=== PATIENT | male | born 1945 | race Caucasian/White ===

== ENCOUNTER → 2016-04-05 | Outpatient (CLI) | payer MEDICARE ==
--- NOTE | 2016-04-05 11:12 | XR ---
EXAMINATION TYPE: XR cervical spine limited DATE OF EXAM: 04/05/2016 11:04 AM COMPARISON: NONE HISTORY: Pain TECHNIQUE: Four views are submitted. FINDINGS: The odontoid is intact. There are no compression deformities. The prevertebral soft tissue structur es are within normal limits. Extensive carotid artery calcifications are seen bilaterally. There are spurs noted anteriorly at all levels with significant facet arthropathy at all levels. 1 mm anteroli sthesis of C3 on C4. Multilevel mild to moderate degenerative disc disease. IMPRESSION: 1. Multilevel mild to moderate degenerative disc disease with facet arthropathy consider follow-up MR I. 2. Extensive soft tissue neck calcifications likely related to significant carotid artery calcificati on. Correlate clinically.
--- NOTE | 2016-04-05 11:13 | XR ---
EXAM TYPE: LUMBAR SPINE X RAY SERIES COMPARISON: NONE HISTORY: Pain TECHNIQUE: 3 views are submitted. FINDINGS: Alignment is anatomic. The pedicles are intact. The transverse processes are intact. There is no s pondylolysis or spondylolisthesis. Hypertrophic changes are noted. There is mild to moderate degener ative disc disease and facet arthropathy with the most marked findings at L4-5 and L5-S1. Vascular ca lcifications are seen. IMPRESSION: 1. Multilevel mild to moderate degenerative disc disease.
== END | disposition home or self-care (01) ==
LOC: RADXRMAIN 10:36
PROVIDERS: ATTEND Chiropractor
DX: M50.30 Other cervical disc degeneration, unspecified cervical region (principal); M51.36 Other intervertebral disc degeneration, lumbar region; M46.82 Other specified inflammatory spondylopathies, cervical region
CPT/HCPCS: 72040; 72100

== ENCOUNTER → 2019-10-09 | Outpatient (CLI) | payer MEDICARE ==
[2019-10-09 11:45] LABS: Basophils % (A) 1 %; Eosinophils # (A) 0.2 k/uL (0-0.7); Eosinophils % (A) 2 %; HCT 37.1 % (39.0-53.0); Lymphocytes # (A) 0.9 k/uL (1.0-4.8); Lymphocytes % (A) 14 %; MCHC 32.3 g/dL (31.0-37.0); MCV 92.8 fL (80.0-100.0); Mean Platelet Volume 7.4; Monocytes # (A) 0.5 k/uL (0-1.0); Monocytes % (A) 8 %; Neutrophils # (A) 4.8 k/uL (1.3-7.7); Neutrophils % (A) 74 %; Platelet Count 274 k/uL (150-450); RDW 13.3 % (11.5-15.5); WBC 6.6 k/uL (3.8-10.6)
--- NOTE | 2019-10-09 15:32 | XR ---
Right leg HISTORY: Anterior lower leg wound, E 11.622 2 views of the right leg Bone mineralization, joint spaces and alignment are maintained. Osteoarthritic changes noted in the r ight knee. Small ossific density distal to the medial malleolus is well-corticated and not felt likel y to be acute. Soft tissue swelling is noted over the anterior tibia at the mid diaphysis level. No p eriostitis to suggest osteomyelitis. Coarse calcification within the soft tissues of the right leg wh ich may be dystrophic. IMPRESSION: Soft tissue swelling and additional findings above.
[2019-10-09 16:14] LABS: African American GFR (CKD) 57.4 (60.0-200.0); Albumin 4.1 g/dL (3.80-4.90); Albumin/Globulin Ratio 1.95 (1.60-3.17); Anion Gap 12.1 mmol/L (4.00-12.00); BUN/Creat Ratio 12.14 Ratio (12.00-20.00); C Reactive Protein 1.4 mg/dL (0.0-0.8); Calcium 9.6 mg/dL (8.7-10.3); Carbon Dioxide 20.9 mmol/L (21.6-31.8); Globulin 2.1 g/dL (1.6-3.3); Non-African American GFR(CKD) 49.5 (60.0-200.0); Potassium 4.6 mmol/L (3.5-5.5); Total Bilirubin 0.3 mg/dL (0.3-1.2); Total Protein 6.2 g/dL (6.2-8.2)
[2019-10-09 17:53] LABS: Erythrocyte Sedimentation Rate 19 mm/Hr (0-20)
== END | disposition home or self-care (01) ==
LOC: LABWHC1 09:42
PROVIDERS: ATTEND Family Medicine
DX: M17.11 Unilateral primary osteoarthritis, right knee (principal); M79.89 Other specified soft tissue disorders; E11.622 Type 2 diabetes mellitus with other skin ulcer; L97.812 Non-pressure chronic ulcer of other part of right lower leg with fat layer exposed; I87.311 Chronic venous hypertension (idiopathic) with ulcer of right lower extremity; I87.2 Venous insufficiency (chronic) (peripheral); I10 Essential (primary) hypertension; E78.5 Hyperlipidemia, unspecified
CPT/HCPCS: 36415; 80053; 84134; 85025; 85652; 86140; 87070; 87075; 87205

== ENCOUNTER → 2019-10-15 | Outpatient (CLI) | payer MEDICARE ==
--- NOTE | 2019-10-15 16:12 | US ---
EXAMINATION TYPE: US venous doppler duplex LE BI DATE OF EXAM: 10/15/2019 3:06 PM COMPARISON: NONE CLINICAL HISTORY: 74-year-old male E11.622 TYPE 2 DIABETES MELLITUS W/OTHER SKIN ULCER. Right lower l eg ulcer x 3 weeks after softball injury to area; Chronic venous HTN; edema bilateral lower extremity SIDE PERFORMED: bilateral LOWER EXTREMITY VENOUS INSUFFICIENCY CLINICAL HISTORY: E11.622 TYPE 2 DIABETES MELLITUS W/OTHER SKIN ULCER. FINDINGS: SIDE PERFORMED: Bilateral 1) Color flow is present and patency is documented in the following vessels. No DVT or SVT is noted . Common Femoral Vein (CFV) Deep Femoral Vein Femoral Vein Popliteal Vein Proximal Calf Veins Greater Saphenous Vein 2) There is venous reflux noted at the following venous levels: Delayed Valve closure seen at Left CFV; reflux noted Left Popliteal Vein; Left upper calf veins 3) Incompetent perforators: None seen. 4) Incidental finding of left medial mid leg cyst seen = 3.6 x 2.7 x 1.9cm at the palpable site. This appears to be a simple cyst located within the deep subcutaneous adipose layer. IMPRESSION: 1. No evidence for DVT within the bilateral lower extremities imaged from the groin to the upper calv es. 2. Venous reflux within the left lower extremity as outlined above. 3. At the medial mid leg palpable site, there is a 3.6 cm simple appearing cyst located within the de ep subcutaneous adipose layer. The exact etiology of this cyst is unclear. Consider clinical and ultr asound follow-up. If any growth is noted, MRI can be considered.
--- NOTE | 2019-10-22 12:01 | P.ARTDOP ---
Arterial Doppler LOWER EXTREMITY ARTERIAL DOPPLER: DATE OF SERVICE: 10/15/2019 Reason for study: Traumatic ulcer left lower leg. Doppler waveforms: Blunted but multiphasic bilaterally. Pulse volume recording: []. Pressure gradients: Gradient above the ankle on the right and very minimal gradient on the left. Ankle-brachial indices: 0.71 on the right and 0.94 on the left. Toe brachial indices: 0.4 on the right, 0.23 on the left Impression: Moderate femoral popliteal disease on the right. Mild on the left. Waveforms and toe pressures suggest adequate tissue perfusion for healing. Clinical correlation recommended..
== END | disposition home or self-care (01) ==
LOC: RADUSWWP 13:27
PROVIDERS: ATTEND Family Medicine
DX: M85.662 Other cyst of bone, left lower leg (principal); I73.9 Peripheral vascular disease, unspecified; L97.812 Non-pressure chronic ulcer of other part of right lower leg with fat layer exposed
CPT/HCPCS: 93922; 93970

== ENCOUNTER 2019-12-20 13:24 | Emergency (ER) | payer MEDICARE ==
[2019-12-20 14:11] VITALS: TEMP 97.8
--- NOTE | 2019-12-20 15:03 | ED ---
General Adult HPI - General Chief complaint: Neuro Symptoms/Deficit Stated complaint: Altered mental status Time Seen by Provider: 12/20/19 14:35 Source: patient, family, RN notes reviewed Mode of arrival: ambulatory Limitations: no limitations - History of Present Illness Initial comments: Patient is a pleasant 74-year-old male presenting to the emergency department for confusion. Onset of symptoms was this morning. Symptoms lasted for a short period of time and have since resolved., Lasted less than a hour.patient was confused. Patient did not know what year was and wasnswering questions inappropriately. patient has speech problems. Patient did havea little bit of difficulty with walking however they believe this was from his knee. Patient has chronic knee problems and just had a steroid injection yesterday. Patient does not feel off balance. Patient has no complaints at this time and is symptom-free. Patient had a somewhat similar episode a couple of weeks ago that she had speech problems however that also resolved after a short period of time. - Related Data Home Medications Medication Instructions Recorded Confirmed Aspirin 325 mg PO DAILY 01/14/16 01/14/16 Atorvastatin [Lipitor] 80 mg PO HS 01/14/16 01/14/16 Cholecalciferol [Vitamin D3 (25 2,000 unit PO DAILY 01/14/16 01/14/16 Mcg = 1000 Iu)] Cinnamon Bark [Cinnamon] 1,000 mg PO BID 01/14/16 01/14/16 Fish Oil/Dha/Epa [Fish Oil 1,200 1 each PO BID 01/14/16 01/14/16 mg Fish Oil] Loratadine 10 mg PO DAILY 01/14/16 01/19/16 Metoprolol Tartrate [Lopressor] 50 mg PO BID 01/14/16 01/14/16 Multivitamins, Thera [Multivitamin 1 tab PO DAILY 01/14/16 01/14/16 (formulary)] amLODIPine BESYLATE [Norvasc] 5 mg PO BID 01/14/16 01/14/16 busPIRone HCL 7.5 mg PO BID 01/14/16 01/14/16 cloNIDine HCL [Catapres] 0.1 mg PO BID 01/14/16 01/14/16 glipiZIDE [Glucotrol] 2.5 mg PO AC-BID 01/14/16 01/19/16 Previous Rx's Medication Instructions Recorded Clopidogrel [Plavix] 75 mg PO DAILY #30 tab 01/20/16 Nitroglycerin Sl Tabs [Nitrostat] 0.4 mg SUBLINGUAL Q5M PRN #25 tab 01/20/16 metFORMIN HCL [Glucophage] 1,000 mg PO BID #0 01/20/16 Allergies Allergy/AdvReac Type Severity Reaction Status Date / Time No Known Allergies Allergy Verified 12/20/19 14:11 Review of Systems ROS Statement: Those systems with pertinent positive or pertinent negative responses have been documented in the HPI. ROS Other: All systems not noted in ROS Statement are negative. Constitutional: Denies: fever Eyes: Denies: eye pain ENT: Denies: ear pain Respiratory: Denies: cough Cardiovascular: Denies: chest pain Endocrine: Denies: fatigue Gastrointestinal: Denies: abdominal pain Genitourinary: Denies: dysuria Musculoskeletal: Denies: back pain Skin: Denies: rash Neurological: Reports: as per HPI, confusion. Denies: headache Past Medical History Past Medical History: COPD, Diabetes Mellitus, Hyperlipidemia, Hypertension, Myocardial Infarction (AL) Additional Past Medical History / Comment(s): Recent sore R great toe-healed, gout. Last Myocardial Infarction Date:: 1991 History of Any Multi-Drug Resistant Organisms: None Reported Past Surgical History: Heart Catheterization, Heart Catheterization With Stent Additional Past Surgical History / Comment(s): 01/18/16 cardiac stents to RCA x2. Other surgical hx: balloon angiioplasty 1991, nathan cataracts Past Anesthesia/Blood Transfusion Reactions: No Reported Reaction Date of Last Stent Placement:: 01/19/16 Past Psychological History: No Psychological Hx Reported Smoking Status: Never smoker Past Alcohol Use History: None Reported Past Drug Use History: None Reported - Past Family History Mother Family Medical History: No Reported History Additional Family Medical History / Comment(s): Mother is healthy and is 89yrs old. Father Family Medical History: Cancer Additional Family Medical History / Comment(s): "blood cancer". at the age of 73 yrs. General Exam Limitations: no limitations General appearance: alert, in no apparent distress Head exam: Present: normocephalic Eye exam: Present: normal appearance, PERRL, EOMI ENT exam: Present: normal oropharynx Neck exam: Present: normal inspection Respiratory exam: Present: normal lung sounds bilaterally Cardiovascular Exam: Present: regular rate, normal rhythm GI/Abdominal exam: Present: soft. Absent: tenderness Extremities exam: Present: normal inspection Neurological exam: Present: alert, oriented X3, CN II-XII intact, abnormal gait (Slightly abnormal gait however this is consistent with patient's reported knee discomfort. Patient denies feeling off balance.). Absent: motor sensory deficit Expanded Neurological exam: Present: protecting the airway Patient oriented to: Present: person, place, time Speech: Present: fluid speech Cranial nerves: EOM's Intact: Normal Sensory exam: Upper Extremity Light Touch: Normal, Lower Extremity Light Touch: Normal Motor strength exam: RUE: 5, LUE: 5, RLE: 5, LLE: 5 Eye Response: (4) open spontaneously Motor Response: (6) obeys commands Verbal Response: (5) oriented Psychiatric exam: Present: normal affect, normal mood Skin exam: Present: normal color Course Vital Signs 12/20/19 12/20/19 14:09 17:15 Temperature 97.8 F Pulse Rate 70 87 Respiratory 20 18 Rate Blood Pressure 129/65 148/87 O2 Sat by Pulse 99 98 Oximetry EKG Findings - EKG Comments: EKG Findings:: Sinus rhythm at 67. FL 140. QRS 86. QT 442. QTC 467. Normal axis. Normal QRS. Some motion artifact is present. No acute ST change. Medical Decision Making - Medical Decision Making patient reevaluated and resting comfortably in bed. Patient and family updated on results and plan. Case was discussed with Dr. loco Benitez, who will accept transfer. Case was earlier discussed with Dr. Schilling who is agreeable with transfer. - Lab Data Result diagrams: 12/20/19 15:26 12/20/19 15:26 Lab Results 12/20/19 12/20/19 12/20/19 Range/Units 15:26 15:26 15:26 WBC 8.3 (3.8-10.6) k/uL RBC 4.26 L (4.30-5.90) m/uL Hgb 13.3 (13.0-17.5) gm/dL Hct 38.8 L (39.0-53.0) % MCV 91.0 (80.0-100.0) fL MCH 31.3 (25.0-35.0) pg MCHC 34.4 (31.0-37.0) g/dL RDW 12.3 (11.5-15.5) % Plt Count 241 (150-450) k/uL MPV 7.4 Neutrophils % 62 % Lymphocytes % 21 % Monocytes % 9 % Eosinophils % 3 % Basophils % 2 % Neutrophils # 5.2 (1.3-7.7) k/uL Lymphocytes # 1.8 (1.0-4.8) k/uL Monocytes # 0.7 (0-1.0) k/uL Eosinophils # 0.3 (0-0.7) k/uL Basophils # 0.2 (0-0.2) k/uL PT 10.2 (9.0-12.0) sec INR 1.0 (<1.2) APTT 23.1 (22.0-30.0) sec Sodium 132 L (137-145) mmol/L Potassium 4.6 (3.5-5.1) mmol/L Chloride 101 (98-107) mmol/L Carbon Dioxide 20 L (22-30) mmol/L Anion Gap 11 mmol/L BUN 23 H (9-20) mg/dL Creatinine 1.05 (0.66-1.25) mg/dL Est GFR (CKD-EPI)AfAm 82 (>60 ml/min/1.73 sqM) Est GFR (CKD-EPI)NonAf 71 (>60 ml/min/1.73 sqM) Glucose 196 H (74-99) mg/dL Calcium 8.9 (8.4-10.2) mg/dL Total Bilirubin 0.5 (0.2-1.3) mg/dL AST 31 (17-59) U/L ALT 36 (4-49) U/L Alkaline Phosphatase 47 (38-126) U/L Troponin I (0.000-0.034) ng/mL Total Protein 6.1 L (6.3-8.2) g/dL Albumin 3.5 (3.5-5.0) g/dL 12/20/19 Range/Units 15:26 WBC (3.8-10.6) k/uL RBC (4.30-5.90) m/uL Hgb (13.0-17.5) gm/dL Hct (39.0-53.0) % MCV (80.0-100.0) fL MCH (25.0-35.0) pg MCHC (31.0-37.0) g/dL RDW (11.5-15.5) % Plt Count (150-450) k/uL MPV Neutrophils % % Lymphocytes % % Monocytes % % Eosinophils % % Basophils % % Neutrophils # (1.3-7.7) k/uL Lymphocytes # (1.0-4.8) k/uL Monocytes # (0-1.0) k/uL Eosinophils # (0-0.7) k/uL Basophils # (0-0.2) k/uL PT (9.0-12.0) sec INR (<1.2) APTT (22.0-30.0) sec Sodium (137-145) mmol/L Potassium (3.5-5.1) mmol/L Chloride (98-107) mmol/L Carbon Dioxide (22-30) mmol/L Anion Gap mmol/L BUN (9-20) mg/dL Creatinine (0.66-1.25) mg/dL Est GFR (CKD-EPI)AfAm (>60 ml/min/1.73 sqM) Est GFR (CKD-EPI)NonAf (>60 ml/min/1.73 sqM) Glucose (74-99) mg/dL Calcium (8.4-10.2) mg/dL Total Bilirubin (0.2-1.3) mg/dL AST (17-59) U/L ALT (4-49) U/L Alkaline Phosphatase (38-126) U/L Troponin I <0.012 (0.000-0.034) ng/mL Total Protein (6.3-8.2) g/dL Albumin (3.5-5.0) g/dL - Radiology Data Radiology results: report reviewed (computed tomography scan of the brain reveals no acute process. CT angios shows atherosclerotic plaque formation. No hemodynamic stenosis Narrowing at the carotid artery bifurcation), image reviewed (chest x-ray shows no acute process) Disposition Clinical Impression: Transient cerebral ischemia Disposition: OTHER INSTITUTION NOT DEFINED Is patient prescribed a controlled substance at d/c from ED?: No Referrals: Austyn Stevens MD [Primary Care Provider] - 1-2 days Time of Disposition: 18:33 - Out of Hospital Transfer - Req. Specs Out of Hospital Transfer - Requested Specifics: Other Emergency Center
[2019-12-20 15:36] LABS: Basophils # (A) 0.2 k/uL (0-0.2); Basophils % (A) 2 %; Eosinophils # (A) 0.3 k/uL (0-0.7); Eosinophils % (A) 3 %; HCT 38.8 % (39.0-53.0); HGB 13.3 gm/dL (13.0-17.5); Lymphocytes # (A) 1.8 k/uL (1.0-4.8); Lymphocytes % (A) 21 %; MCH 31.3 pg (25.0-35.0); MCHC 34.4 g/dL (31.0-37.0); Mean Platelet Volume 7.4; Monocytes # (A) 0.7 k/uL (0-1.0); Monocytes % (A) 9 %; Neutrophils # (A) 5.2 k/uL (1.3-7.7); Neutrophils % (A) 62 %; Platelet Count 241 k/uL (150-450); RBC 4.26 m/uL (4.30-5.90); RDW 12.3 % (11.5-15.5); WBC 8.3 k/uL (3.8-10.6)
[2019-12-20 15:48] LABS: Albumin 3.5 g/dL (3.5-5.0); Calcium 8.9 mg/dL (8.4-10.2); Potassium 4.6 mmol/L (3.5-5.1); Total Bilirubin 0.5 mg/dL (0.2-1.3); Total Protein 6.1 g/dL (6.3-8.2)
[2019-12-20 15:50] LABS: Partial Thromboplastin Time 23.1 sec (22.0-30.0); Prothrombin Time 10.2 sec (9.0-12.0)
--- NOTE | 2019-12-20 16:36 | CT ---
EXAMINATION TYPE: CT brain wo con for TPA DATE OF EXAM: 12/20/2019 COMPARISON: None HISTORY: Confusion. Was not a code stroke CT DLP: 1047.8 mGycm Automated exposure control for dose reduction was used. There is cerebral cortical atrophy. There is no mass effect nor midline shift. There is no sign of in tracranial hemorrhage. The calvarium is intact. Skull base is intact. IMPRESSION: Cerebral atrophy. No acute intracranial abnormality.
[2019-12-20 17:23] VITALS: RESP 18
--- NOTE | 2019-12-20 17:24 | CT ---
EXAMINATION TYPE: CT angio head neck DATE OF EXAM: 12/20/2019 COMPARISON: None HISTORY: Confusion CT DLP: 549.8 mGycm Automated exposure control for dose reduction was used. CONTRAST: Performed with IV Contrast, patient injected with 65 mL of Isovue 370. There are 3-D post processed images. There is normal branching pattern of the great vessels on the aortic arch. There is arterial flow in the subclavian arteries bilaterally. Thoracic aorta is atheromatous. There is arterial flow in the common internal and external carotid arteries bilaterally. There is art erial flow in both vertebral arteries. There is bilateral plaque formation at the carotid artery bifu rcations. There is estimated 30% stenosis at the origin of the right internal carotid artery. There i s estimated less than 25% stenosis origin of the left internal carotid artery. There is no evidence o f carotid or vertebral artery aneurysm or dissection. There is arterial flow in the vertebrobasilar a rtery system. There is arterial flow in the anterior middle and posterior cerebral arteries bilaterally. I see no e vidence of intracranial arterial stenosis. There is normal contrast opacification of the venous sinus es. I see no sign of intracranial aneurysm or neovascularity. There is no mass effect. IMPRESSION: Atherosclerotic plaque formation. There is no evidence of hemodynamic stenosis of the carotid arterie s. There is narrowing at the carotid artery bifurcations as above. No intracranial angiographic abnor mality.
--- NOTE | 2019-12-20 17:47 | XR ---
EXAMINATION TYPE: XR chest 2V DATE OF EXAM: 12/20/2019 COMPARISON: NONE HISTORY: Altered mental status TECHNIQUE: 2 views FINDINGS: There is no heart failure nor confluent pneumonic infiltrate. Costophrenic angles are clear . Thoracic aorta is atheromatous. Bony thorax is intact. IMPRESSION: No active cardiopulmonary disease. Normal heart.
[2019-12-20] MEDS ORDERED: ASPIRIN 81 MG PO STA (18:33)
[2019-12-20 18:55] LABS: Appearance,Urine Clear (Clear); Bilirubin,Urine Negative (Negative); Blood,Urine Negative (Negative); Color,Urine Light Yellow; Glucose,Urine (UA) Negative (Negative); Ketones,Urine Negative (Negative); Leukocyte Esterase,Urine Negative (Negative); Nitrite,Urine Negative (Negative); Protein,Urine Negative (Negative); Specific Gravity,Urine 1.039 (1.001-1.035); Urobilinogen,Urine <2.0 mg/dL (<2.0)
[2019-12-20 19:36] VITALS: BP 176/88; PULSE 89
== END 2019-12-20 20:28 | disposition other institution (70) ==
LOC: EC 13:24
DX: G45.9 Transient cerebral ischemic attack, unspecified (principal); I10 Essential (primary) hypertension; E11.9 Type 2 diabetes mellitus without complications; E78.5 Hyperlipidemia, unspecified; I25.2 Old myocardial infarction; Z79.82 Long term (current) use of aspirin; Z79.899 Other long term (current) drug therapy; Z79.84 Long term (current) use of oral hypoglycemic drugs; Z95.5 Presence of coronary angioplasty implant and graft
CPT/HCPCS: 36415; 93005; 80053; 84484; 85025; 85610; 85730; 81003; 71046; 70496; 70450; 70498; 99285; Q9967

== ENCOUNTER 2020-11-24 10:50 | Emergency (ER) | payer MEDICARE ==
[2020-11-24 10:56] VITALS: TEMP 98
[2020-11-24] MEDS ORDERED: ONDANSETRON 4 MG/2 ML VIAL IVP STA (11:22)
[2020-11-24] MEDS ORDERED: SODIUM CHLORIDE 0.9% 500 ML 500 ML IV STA (11:22)
[2020-11-24 11:54] LABS: Basophils % (A) 0 %; Eosinophils % (A) 0 %; HCT 40.9 % (39.0-53.0); HGB 13.2 gm/dL (13.0-17.5); Lymphocytes # (A) 1.4 k/uL (1.0-4.8); Lymphocytes % (A) 11 %; MCH 29.6 pg (25.0-35.0); MCHC 32.4 g/dL (31.0-37.0); MCV 91.5 fL (80.0-100.0); Mean Platelet Volume 7.1; Monocytes # (A) 0.7 k/uL (0-1.0); Monocytes % (A) 6 %; Neutrophils # (A) 10.3 k/uL (1.3-7.7); Neutrophils % (A) 82 %; Platelet Count 317 k/uL (150-450); RBC 4.47 m/uL (4.30-5.90); RDW 12.6 % (11.5-15.5); WBC 12.5 k/uL (3.8-10.6)
[2020-11-24 12:00] LABS: ALT 27 U/L (4-49); AST 26 U/L (17-59); African American GFR (CKD) >90 (>60 ml/min/1.73 sqM); Albumin 4.1 g/dL (3.5-5.0); Alkaline Phosphatase 69 U/L (38-126); Anion Gap 12 mmol/L; Blood Urea Nitrogen 20 mg/dL (9-20); Calcium 9.5 mg/dL (8.4-10.2); Carbon Dioxide 22 mmol/L (22-30); Chloride 100 mmol/L (98-107); Glucose 247 mg/dL (74-99); Magnesium 1.8 mg/dL (1.6-2.3); Non-African American GFR(CKD) 86 (>60 ml/min/1.73 sqM); Potassium 4.5 mmol/L (3.5-5.1); Sodium 134 mmol/L (137-145); Total Bilirubin 0.4 mg/dL (0.2-1.3); Total Protein 7.2 g/dL (6.3-8.2)
[2020-11-24 12:01] LABS: Partial Thromboplastin Time 22.2 sec (22.0-30.0); Prothrombin Time 10.6 sec (9.0-12.0)
--- NOTE | 2020-11-24 12:38 | CT ---
EXAMINATION TYPE: CT brain wo con DATE OF EXAM: 11/24/2020 COMPARISON: 12/20/2019 HISTORY: Fall CT DLP: 1114.[address] of the brain was performed. The ventricles, basal cisterns and sulci overlying the cerebral convexities demonstrate moderate enla rgement. There is no evidence for intracranial hemorrhage or sulcal effacement. There is decreased attenuation about the periventricular white matter and deep white matter of both c erebral hemispheres, compatible with chronic small vessel ischemia. Differential diagnosis does inclu de demyelination. No mass effects are seen.No midline shift. Osseous calvarium is intact. If symptoms persist consider MRI. IMPRESSION: 1. Age related atrophic and chronic small vessel ischemic change without acute intracranial process s een at this time.
--- NOTE | 2020-11-24 12:45 | XR ---
EXAMINATION TYPE: XR knee complete LT DATE OF EXAM: 11/24/2020 COMPARISON: NONE HISTORY: Pain TECHNIQUE: Three views are submitted. FINDINGS: Severe narrowing of the medial compartment of the knee joint with diffuse osteopenia. Severe narrowin g of the hyper trophic changes of the patellofemoral joint with small suprapatellar bursal fluid estrella ection. Soft tissue ossification or calcification noted and there are vascular calcifications.. Osse ous structures are intact. No acute fracture seen. IMPRESSION: 1. Severe osteoarthritis with no definite acute fracture. 2. Small suprapatellar bursal fluid collection..
--- NOTE | 2020-11-24 13:15 | ED ---
General Adult HPI - General Chief complaint: Fall Stated complaint: Vomiting, Fall, knee pain Time Seen by Provider: 11/24/20 11:05 Source: patient, family, RN notes reviewed, old records reviewed Mode of arrival: wheelchair Limitations: no limitations - History of Present Illness Initial comments: Patient is a 75-year-old male with history of COPD, diabetes, heart disease, presenting to emergency Department with complaints of some nausea and vomiting that started 2 nights ago. He states he had a fall 2 days ago, he tripped over some blankets on his dog bed, landing mostly on his left side. He states he did not hit his head. He is not on blood thinners. He states ever since that he's been having some pain in his left knee but is also been nauseous and having vomiting episodes. He is been unable to eat anything over the past 1-2 days. He is getting concerned as he is diabetic. He was not able to take his medications today secondary to nausea. 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 He is complaining a little bit of lightheadedness. Denies any abdominal pain, no diarrhea. He denies any chest pains or shortness of breath. He denies any o ther pains from this fall except for his left knee. He has no further complaints. Upon arrival to the ER, his blood pressures a little elevated at 176/72, rest of vitals normal. - Related Data Home Medications Medication Instructions Recorded Confirmed Aspirin 325 mg PO DAILY 01/14/16 01/14/16 Atorvastatin [Lipitor] 80 mg PO HS 01/14/16 01/14/16 Cholecalciferol [Vitamin D3 (25 2,000 unit PO DAILY 01/14/16 01/14/16 Mcg = 1000 Iu)] Cinnamon Bark [Cinnamon] 1,000 mg PO BID 01/14/16 01/14/16 Fish Oil/Dha/Epa [Fish Oil 1,200 1 each PO BID 01/14/16 01/14/16 mg Fish Oil] Loratadine 10 mg PO DAILY 01/14/16 01/19/16 Metoprolol Tartrate [Lopressor] 50 mg PO BID 01/14/16 01/14/16 Multivitamins, Thera [Multivitamin 1 tab PO DAILY 01/14/16 01/14/16 (formulary)] amLODIPine BESYLATE [Norvasc] 5 mg PO BID 01/14/16 01/14/16 busPIRone HCL 7.5 mg PO BID 01/14/16 01/14/16 cloNIDine HCL [Catapres] 0.1 mg PO BID 01/14/16 01/14/16 glipiZIDE [Glucotrol] 2.5 mg PO AC-BID 01/14/16 01/19/16 Previous Rx's Medication Instructions Recorded Clopidogrel [Plavix] 75 mg PO DAILY #30 tab 01/20/16 Nitroglycerin Sl Tabs [Nitrostat] 0.4 mg SUBLINGUAL Q5M PRN #25 tab 01/20/16 metFORMIN HCL [Glucophage] 1,000 mg PO BID #0 01/20/16 Allergies Allergy/AdvReac Type Severity Reaction Status Date / Time No Known Allergies Allergy Verified 11/24/20 10:52 Review of Systems ROS Statement: Those systems with pertinent positive or pertinent negative responses have been documented in the HPI. ROS Other: All systems not noted in ROS Statement are negative. Past Medical History Past Medical History: COPD, Diabetes Mellitus, Hyperlipidemia, Hypertension, Myocardial Infarction ([place]) Additional Past Medical History / Comment(s): Recent sore R great toe-healed, gout. Last Myocardial Infarction Date:: 1991 History of Any Multi-Drug Resistant Organisms: None Reported Past Surgical History: Heart Catheterization, Heart Catheterization With Stent Additional Past Surgical History / Comment(s): 01/18/16 cardiac stents to RCA x2. Other surgical hx: balloon angiioplasty 1991, nathan cataracts Past Anesthesia/Blood Transfusion Reactions: No Reported Reaction Date of Last Stent Placement:: 01/19/16 Past Psychological History: No Psychological Hx Reported Smoking Status: Never smoker Past Alcohol Use History: None Reported Past Drug Use History: None Reported - Past Family History Mother Family Medical History: No Reported History Additional Family Medical History / Comment(s): Mother is healthy and is 89yrs o ld. Father Family Medical History: Cancer Additional Family Medical History / Comment(s): "blood cancer". at the age of 73 yrs. General Exam - General Exam Comments Initial Comments: GENERAL: Patient is well-developed and well-nourished. Patient is nontoxic and in no acute distress. HEAD: Atraumatic, normocephalic. There are no hematomas. EYES: Pupils equal round and reactive to light, extraocular movements intact, sclera anicteric, conjunctiva are normal. Eyelids were unremarkable. ENT: TMs normal, nares patent, oropharynx clear without exudates. Moist mucous membranes. NECK: Normal range of motion, supple without lymphadenopathy or JVD. LUNGS: Unlabored respirations. Scattered wheezes throughout, history of COPD. HEART: Regular rate and rhythm without murmurs, rubs or gallops. ABDOMEN: Soft, nontender, normoactive bowel sounds. No guarding, no rebound. No masses appreciated. : Deferred MUSCULOSKELETAL: He has some mild tenderness of the left anterior knee, he has some mild swelling present, slightly decreased active range of motion secondary to pain. No obvious deformity, neurovascular intact. Rest of extremities with adequate stre ngth and normal range of motion, no pitting or edema. No clubbing or cyanosis. NEUROLOGICAL: Patient is alert and oriented x 3. Motor and sensory are also intact. Cranial nerves II through XII grossly intact. Symmetrical smile. Normal speech, normal gait. PSYCH: Normal mood, normal affect. SKIN: Warm, Dry, normal turgor, no rashes or lesions noted. Limitations: no limitations Course Vital Signs 11/24/20 10:52 Temperature 98 F Pulse Rate 92 Respiratory 18 Rate Blood Pressure 176/72 O2 Sat by Pulse 97 Oximetry EKG Findings - EKG Comments: EKG Findings:: Normal sinus rhythm, normal ECG, no signs of acute process. Similar to previous on 12/20/2019. Ventricular rate 83, CT interval 154, QT 380. Medical Decision Making - Medical Decision Making Patient is a 75-year-old male with history of COPD, diabetes, hypertension, presenting with some nausea and vomiting. He had a fall 2 days ago, injured his left knee. He states he did not hit his head. He has mild dizziness. His vitals were stable upon arrival. Labs show no acute process except for his glucose is 247, he states he is not been able take his medications secondary to nausea in the past day. Trop is normal, EKG showed no acute process. Xr of the Left knee show no acute fracture or disclocation, mild swelling, severe OA. CT of brain shows no acute process. We did attempt a urine sample but pt always has trouble giving a sample, usually has to go home and bring it back. No hx of UTI's or dysuria. Pt received some fluids and zofran, has been resting comfortable. He feels improvement. He is stable for discharge. He will follow up with his primary care physician. He is agreeable to this plan of care. Return parameters were discussed with him and he verbalized understanding. Case discussed with Dr. Duncan. - Lab Data Result diagrams: 11/24/20 11:21 11/24/20 11:21 Lab Results 11/24/20 11/24/20 11/24/20 Range/Units 11:21 11:21 11:21 WBC 12.5 H (3.8-10.6) k/uL RBC 4.47 (4.30-5.90) m/uL Hgb 13.2 (13.0-17.5) gm/dL Hct 40.9 (39.0-53.0) % MCV 91.5 (80.0-100.0) fL MCH 29.6 (25.0-35.0) pg MCHC 32.4 (31.0-37.0) g/dL RDW 12.6 (11.5-15.5) % Plt Count 317 (150-450) k/uL MPV 7.1 Neutrophils % 82 % Lymphocytes % 11 % Monocytes % 6 % Eosinophils % 0 % Basophils % 0 % Neutrophils # 10.3 H (1.3-7.7) k/uL Lymphocytes # 1.4 (1.0-4.8) k/uL Monocytes # 0.7 (0-1.0) k/uL Eosinophils # 0.0 (0-0.7) k/uL Basophils # 0.0 (0-0.2) k/uL PT 10.6 (9.0-12.0) sec INR 1.0 (<1.2) APTT 22.2 (22.0-30.0) sec Sodium 134 L (137-145) mmol/L Potassium 4.5 (3.5-5.1) mmol/L Chloride 100 (98-107) mmol/L Carbon Dioxide 22 (22-30) mmol/L Anion Gap 12 mmol/L BUN 20 (9-20) mg/dL Creatinine 0.84 (0.66-1.25) mg/dL Est GFR (CKD-EPI)AfAm >90 (>60 ml/min/1.73 sqM) Est GFR (CKD-EPI)NonAf 86 (>60 ml/min/1.73 sqM) Glucose 247 H (74-99) mg/dL Calcium 9.5 (8.4-10.2) mg/dL Magnesium 1.8 (1.6-2.3) mg/dL Total Bilirubin 0.4 (0.2-1.3) mg/dL AST 26 (17-59) U/L ALT 27 (4-49) U/L Alkaline Phosphatase 69 (38-126) U/L Troponin I (0.000-0.034) ng/mL Total Protein 7.2 (6.3-8.2) g/dL Albumin 4.1 (3.5-5.0) g/dL 11/24/ Range/Units 11:21 WBC (3.8-10.6) k/uL RBC (4.30-5.90) m/uL Hgb (13.0-17.5) gm/dL Hct (39.0-53.0) % MCV (80.0-100.0) fL MCH (25.0-35.0) pg MCHC (31.0-37.0) g/dL RDW (11.5-15.5) % Plt Count (150-450) k/uL MPV Neutrophils % % Lymphocytes % % Monocytes % % Eosinophils % % Basophils % % Neutrophils # (1.3-7.7) k/uL Lymphocytes # (1.0-4.8) k/uL Monocytes # (0-1.0) k/uL Eosinophils # (0-0.7) k/uL Basophils # (0-0.2) k/uL PT (9.0-12.0) sec INR (<1.2) APTT (22.0-30.0) sec Sodium (137-145) mmol/L Potassium (3.5-5.1) mmol/L Chloride (98-107) mmol/L Carbon Dioxide (22-30) mmol/L Anion Gap mmol/L BUN (9-20) mg/dL Creatinine (0.66-1.25) mg/dL Est GFR (CKD-EPI)AfAm (>60 ml/min/1.73 sqM) Est GFR (CKD-EPI)NonAf (>60 ml/min/1.73 sqM) Glucose (74-99) mg/dL Calcium (8.4-10.2) mg/dL Magnesium (1.6-2.3) mg/dL Total Bilirubin (0.2-1.3) mg/dL AST (17-59) U/L ALT (4-49) U/L Alkaline Phosphatase (38-126) U/L Troponin I <0.012 (0.000-0.034) ng/mL Total Protein (6.3-8.2) g/dL Albumin (3.5-5.0) g/dL Disposition Clinical Impression: Fall, Left knee pain, Nausea & vomiting Disposition: HOME SELF-CARE Condition: Stable Instructions (If sedation given, give patient instructions): Acute Nausea and Vomiting (ED) Additional Instructions: Please return to the Emergency Department if symptoms worsen or any other concerns. Increase fluids and food as tolerated. May take Zofran for any additional nausea or vomiting. Please follow-up with your family doctor within 1-3 days. Is patient prescribed a controlled substance at d/c from ED?: No Referrals: Austyn Stevens MD [Primary Care Provider] - 1-2 days Time of Disposition: 16:09
[2020-11-24] MEDS ORDERED: ONDANSETRON 4 MG ODT STARTER PACK 2 TAB BTL PO STA (16:07)
[2020-11-24 16:47] VITALS: BP 124/60; PULSE 68; RESP 16
== END 2020-11-24 16:46 | disposition home or self-care (01) ==
LOC: EC 10:50
DX: R11.2 Nausea with vomiting, unspecified (principal); M25.562 Pain in left knee; R42 Dizziness and giddiness; E11.9 Type 2 diabetes mellitus without complications; I10 Essential (primary) hypertension; J44.9 Chronic obstructive pulmonary disease, unspecified; I25.2 Old myocardial infarction; E78.5 Hyperlipidemia, unspecified; Z79.02 Long term (current) use of antithrombotics/antiplatelets; Z79.84 Long term (current) use of oral hypoglycemic drugs; Z79.82 Long term (current) use of aspirin; Z79.899 Other long term (current) drug therapy; W01.0XXA Fall on same level from slipping, tripping and stumbling without subsequent striking against object, initial encounter
CPT/HCPCS: 93005; 80053; 83735; 84484; 85025; 85610; 85730; 73562; 70450; 99284; 96374; 96361 ×2; J2405; S0119

== ENCOUNTER 2021-12-18 18:40 | Emergency (ER) | payer MEDICARE ==
[2021-12-18 19:27] LABS: Basophils % (A) 0 %; Eosinophils # (A) 0.2 k/uL (0-0.7); Eosinophils % (A) 2 %; HCT 36.2 % (39.0-53.0); Lymphocytes # (A) 1.5 k/uL (1.0-4.8); Lymphocytes % (A) 14 %; MCH 30.3 pg (25.0-35.0); MCHC 33.2 g/dL (31.0-37.0); MCV 91.3 fL (80.0-100.0); Mean Platelet Volume 8.1; Monocytes # (A) 0.7 k/uL (0-1.0); Monocytes % (A) 7 %; Neutrophils # (A) 8.3 k/uL (1.3-7.7); Neutrophils % (A) 76 %; Platelet Count 484 k/uL (150-450); RBC 3.96 m/uL (4.30-5.90); RDW 12.5 % (11.5-15.5); WBC 10.8 k/uL (3.8-10.6)
--- NOTE | 2021-12-18 19:33 | XR ---
EXAMINATION TYPE: XR chest 2V DATE OF EXAM: 12/18/2021 COMPARISON: NONE HISTORY: Altered mental status TECHNIQUE: 2 views FINDINGS: Heart is normal. Lungs are clear. Diaphragm is normal. Bony thorax is intact. There are galen st leads. IMPRESSION: No active cardiopulmonary disease. No change.
[2021-12-18 19:37] LABS: Partial Thromboplastin Time 25.6 sec (22.0-30.0); Prothrombin Time 10.6 sec (9.0-12.0)
--- NOTE | 2021-12-18 19:37 | ED ---
General Adult HPI - General Chief complaint: Chest Pain Stated complaint: AFIB, AMS Time Seen by Provider: 12/18/21 18:59 Source: patient, EMS, RN notes reviewed, old records reviewed Mode of arrival: EMS Limitations: no limitations - History of Present Illness Initial comments: 76-year-old male with possible fall, irregular heartbeat. Patient was sent in from the [facility] where he is currently undergoing rehabilitation for weakness. He was seen at outside hospital with pneumonia and weakness. He was unable to ambulate and was taken to the [facility] for rehabilitation. Today he possibly had a minor fall. He does not recall the exact events in this was not witnessed by staff. He denies any pain complaints, no extremity pain, no head or neck trauma. He has had some issues with confusion which family states is normal. He was thought to have an irregular heartbeat and family states that he was possibly diagnosed with atrial fibrillation on recent hospital admission. He denies chest pain. Denies dyspnea. Denies palpitation. - Related Data Home Medications Medication Instructions Recorded Confirmed Aspirin 325 mg PO DAILY 01/14/16 01/14/16 Atorvastatin [Lipitor] 80 mg PO HS 01/14/16 01/14/16 Cholecalciferol [Vitamin D3 (25 2,000 unit PO DAILY 01/14/16 01/14/16 Mcg = 1000 Iu)] Cinnamon Bark [Cinnamon] 1,000 mg PO BID 01/14/16 01/14/16 Fish Oil/Dha/Epa [Fish Oil 1,200 1 each PO BID 01/14/16 01/14/16 mg Fish Oil] Loratadine 10 mg PO DAILY 01/14/16 01/19/16 Metoprolol Tartrate [Lopressor] 50 mg PO BID 01/14/16 01/14/16 Multivitamins, Thera [Multivitamin 1 tab PO DAILY 01/14/16 01/14/16 (formulary)] amLODIPine BESYLATE [Norvasc] 5 mg PO BID 01/14/16 01/14/16 busPIRone HCL 7.5 mg PO BID 01/14/16 01/14/16 cloNIDine HCL [Catapres] 0.1 mg PO BID 01/14/16 01/14/16 glipiZIDE [Glucotrol] 2.5 mg PO AC-BID 01/14/16 01/19/16 Previous Rx's Medication Instructions Recorded Clopidogrel [Plavix] 75 mg PO DAILY #30 tab 01/20/16 Nitroglycerin Sl Tabs [Nitrostat] 0.4 mg SUBLINGUAL Q5M PRN #25 tab 01/20/16 metFORMIN HCL [Glucophage] 1,000 mg PO BID #0 01/20/16 Allergies Allergy/AdvReac Type Severity Reaction Status Date / Time No Known Allergies Allergy Verified 12/18/21 18:48 Review of Systems ROS Statement: Those systems with pertinent positive or pertinent negative responses have been documented in the HPI. ROS Other: All systems not noted in ROS Statement are negative. Past Medical History Past Medical History: COPD, Diabetes Mellitus, Hyperlipidemia, Hypertension, Myocardial Infarction ([place]) Additional Past Medical History / Comment(s): Recent sore R great toe-healed, gout. Last Myocardial Infarction Date:: 1991 History of Any Multi-Drug Resistant Organisms: None Reported Past Surgical History: Heart Catheterization, Heart Catheterization With Stent Additional Past Surgical History / Comment(s): 01/18/16 cardiac stents to RCA x2. Other surgical hx: balloon angiioplasty 1991, nathan cataracts Past Anesthesia/Blood Transfusion Reactions: No Reported Reaction Date of Last Stent Placement:: 01/19/16 Past Psychological History: No Psychological Hx Reported Smoking Status: Never smoker Past Alcohol Use History: None Reported Past Drug Use History: None Reported - Past Family History Mother Family Medical History: No Reported History Additional Family Medical History / Comment(s): Mother is healthy and is 89yrs old. Father Family Medical History: Cancer Additional Family Medical History / Comment(s): "blood cancer". at the age of 73 yrs. General Exam Limitations: no limitations General appearance: alert, in no apparent distress Head exam: Present: atraumatic, normocephalic Eye exam: Present: normal appearance, PERRL ENT exam: Present: normal exam Neck exam: Present: normal inspection. Absent: tenderness, meningismus Respiratory exam: Present: normal lung sounds bilaterally. Absent: respiratory distress, wheezes Cardiovascular Exam: Present: regular rate, normal rhythm GI/Abdominal exam: Present: soft. Absent: distended, tenderness, guarding Extremities exam: Present: normal inspection, normal capillary refill Neurological exam: Present: alert, CN II-XII intact. Absent: motor sensory deficit Psychiatric exam: Present: normal affect, normal mood Skin exam: Present: warm, dry, intact. Absent: cyanosis, diaphoretic Course Vital Signs 12/18/21 12/18/21 12/18/21 18:43 19:03 20:51 Temperature 98.1 F 98.2 F Pulse Rate 97 102 H 103 H Respiratory 18 18 16 Rate Blood Pressure 175/78 147/80 145/81 O2 Sat by Pulse 99 99 97 Oximetry - Reevaluation(s) Reevaluation #1: 12/18/21 20:57 Patient on a monitor showing clear sinus rhythm. EKG Findings - EKG Comments: EKG Findings:: narrow complex rhythm, possible atrial fibrillation rate of 102, QRS duration 90, QTC 412, tremor artifact limiting assessment, no ST segment elevation. Repeat EKG, sinus tachycardia with PVC the baseline is obscured by artifact but there is a truck activity representing sinus rhythm. Rate of 102, NM interval 153, QRS duration 86, QTC [address] segment elevation. - EKG Results: EKG: interpreted by JOSE Medical Decision Making - Medical Decision Making 76-year-old male presents with fall, no injury. No complaints. Patient's was thought to possibly be in atrial fibrillation. He does not have a formal diagnosis but family states that he may have been in A. fib week ago at outside hospital. Patient appears to be in sinus rhythm with PAC and PVC. The majority of the monitor tracing does appear to be sinus rhythm. Patient is a fall risk and is currently on metoprolol. He is rate controlled. He may have intermittent A. 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 Laboratory testing stable, troponin negative. Patient stable for discharge back to [facility]. - Lab Data Result diagrams: 12/18/21 19:18 12/18/21 19:18 Lab Results 12/18/21 12/18/21 12/18/21 Range/Units 19:18 19:18 19:18 WBC 10.8 H (3.8-10.6) k/uL RBC 3.96 L (4.30-5.90) m/uL Hgb 12.0 L (13.0-17.5) gm/dL Hct 36.2 L (39.0-53.0) % MCV 91.3 (80.0-100.0) fL MCH 30.3 (25.0-35.0) pg MCHC 33.2 (31.0-37.0) g/dL RDW 12.5 (11.5-15.5) % Plt Count 484 H (150-450) k/uL MPV 8.1 Neutrophils % 76 % Lymphocytes % 14 % Monocytes % 7 % Eosinophils % 2 % Basophils % 0 % Neutrophils # 8.3 H (1.3-7.7) k/uL Lymphocytes # 1.5 (1.0-4.8) k/uL Monocytes # 0.7 (0-1.0) k/uL Eosinophils # 0.2 (0-0.7) k/uL Basophils # 0.0 (0-0.2) k/uL PT 10.6 (9.0-12.0) sec INR 1.0 (<1.2) APTT 25.6 (22.0-30.0) sec Sodium 131 L (137-145) mmol/L Potassium 5.0 (3.5-5.1) mmol/L Chloride 101 (98-107) mmol/L Carbon Dioxide 20 L (22-30) mmol/L Anion Gap 10 mmol/L BUN 32 H (9-20) mg/dL Creatinine 1.29 H (0.66-1.25) mg/dL Est GFR (CKD-EPI)AfAm 62 (>60 ml/min/1.73 sqM) Est GFR (CKD-EPI)NonAf 54 (>60 ml/min/1.73 sqM) Glucose 281 H (74-99) mg/dL Calcium 9.0 (8.4-10.2) mg/dL Magnesium 1.8 (1.6-2.3) mg/dL Total Bilirubin 0.2 (0.2-1.3) mg/dL AST 28 (17-59) U/L ALT 23 (4-49) U/L Alkaline Phosphatase 64 (38-126) U/L Troponin I (0.000-0.034) ng/mL Total Protein 6.9 (6.3-8.2) g/dL Albumin 3.8 (3.5-5.0) g/dL 12/18/21 Range/Units 19:18 WBC (3.8-10.6) k/uL RBC (4.30-5.90) m/uL Hgb (13.0-17.5) gm/dL Hct (39.0-53.0) % MCV (80.0-100.0) fL MCH (25.0-35.0) pg MCHC (31.0-37.0) g/dL RDW (11.5-15.5) % Plt Count (150-450) k/uL MPV Neutrophils % % Lymphocytes % % Monocytes % % Eosinophils % % Basophils % % Neutrophils # (1.3-7.7) k/uL Lymphocytes # (1.0-4.8) k/uL Monocytes # (0-1.0) k/uL Eosinophils # (0-0.7) k/uL Basophils # (0-0.2) k/uL PT (9.0-12.0) sec INR (<1.2) APTT (22.0-30.0) sec Sodium (137-145) mmol/L Potassium (3.5-5.1) mmol/L Chloride (98-107) mmol/L Carbon Dioxide (22-30) mmol/L Anion Gap mmol/L BUN (9-20) mg/dL Creatinine (0.66-1.25) mg/dL Est GFR (CKD-EPI)AfAm (>60 ml/min/1.73 sqM) Est GFR (CKD-EPI)NonAf (>60 ml/min/1.73 sqM) Glucose (74-99) mg/dL Calcium (8.4-10.2) mg/dL Magnesium (1.6-2.3) mg/dL Total Bilirubin (0.2-1.3) mg/dL AST (17-59) U/L ALT (4-49) U/L Alkaline Phosphatase (38-126) U/L Troponin I <0.012 (0.000-0.034) ng/mL Total Protein (6.3-8.2) g/dL Albumin (3.5-5.0) g/dL Disposition Clinical Impression: Palpitation Disposition: HOME SELF-CARE Condition: Fair Instructions (If sedation given, give patient instructions): Heart Palpitations (ED), Premature Atrial Contractions (ED) Is patient prescribed a controlled substance at d/c from ED?: No Referrals: Austyn Stevens MD [Primary Care Provider] - 1-2 days Sanjay Ruiz MD [STAFF PHYSICIAN] - 1-2 days Time of Disposition: 21:02
[2021-12-18 19:40] LABS: Albumin 3.8 g/dL (3.5-5.0); Magnesium 1.8 mg/dL (1.6-2.3); Total Bilirubin 0.2 mg/dL (0.2-1.3); Total Protein 6.9 g/dL (6.3-8.2)
[2021-12-18] MEDS ORDERED: SODIUM CHLORIDE 0.9% 500 ML 500 ML IV ONE (20:05)
[2021-12-18 20:51] VITALS: BP 145/81; PULSE 103; RESP 16
[2021-12-18 20:53] VITALS: TEMP 98.2
== END 2021-12-18 21:48 | disposition home or self-care (01) ==
LOC: EC 18:40
DX: R00.2 Palpitations (principal); J44.9 Chronic obstructive pulmonary disease, unspecified; E11.9 Type 2 diabetes mellitus without complications; I10 Essential (primary) hypertension; I25.2 Old myocardial infarction; E78.5 Hyperlipidemia, unspecified; Z79.02 Long term (current) use of antithrombotics/antiplatelets; Z79.891 Long term (current) use of opiate analgesic; Z79.83 Long term (current) use of bisphosphonates; Z79.899 Other long term (current) drug therapy
CPT/HCPCS: 36415; 71046; 80053; 83735; 84484; 85025; 85610; 85730; 93005; 96360; 99285

== ENCOUNTER 2022-12-18 16:22 | Inpatient (IN) | payer MEDICARE ==
[2022-12-18] MEDS ORDERED: ONDANSETRON 4 MG/2 ML VIAL IVP STA ×2 (16:43→19:09)
[2022-12-18] MEDS ORDERED: MORPHINE SULFATE 4 MG/ML SYRINGE IVP STA (16:43)
[2022-12-18] MEDS ORDERED: SODIUM CHLORIDE 0.9% 1,000 ML IV STA ×2 (16:43→19:26)
--- NOTE | 2022-12-18 17:38 | ED ---
Abdominal Pain HPI - General Chief Complaint: Abdominal Pain Stated Complaint: Abd Pain Time Seen by Provider: 12/18/22 16:35 Source: patient, EMS, RN notes reviewed, old records reviewed, Caregiver Mode of arrival: EMS Limitations: altered mental status - History of Present Illness Initial Comments: This is a 77-year-old male to the emergency department for evaluation today. Patient presents today for evaluation regards to abdominal pain, patient missed of feeling weak family states maybe altered mental status. Patient's main complaint was abdominal pain here in the emergency department. Patient's brought in by EMS for evaluation and family states patient has-been acting weak and not participating in a two-view patient has had a significant diminished inactivities of daily living for the last few days MD Complaint: abdominal pain -: hour(s) Location: diffuse Radiation: none Migration to: no migration Severity: mild Severity scale (1-10): 3 Quality: cramping, aching Consistency: constant Improves With: nothing Worsens With: nothing Associated Symptoms: nausea Treatments Prior to Arrival: other (0) - Related Data Home Medications Medication Instructions Recorded Confirmed Atorvastatin [Lipitor] 80 mg PO HS 01/14/16 12/18/22 Loratadine 10 mg PO DAILY 01/14/16 12/18/22 amLODIPine BESYLATE [Norvasc] 5 mg PO BID 01/14/16 12/18/22 busPIRone HCL 15 mg PO DAILY 01/14/16 12/18/22 cloNIDine HCL [Catapres] 0.1 mg PO BID 01/14/16 12/18/22 Ascorbic Acid [Vitamin C] 500 mg PO DAILY 12/18/22 12/18/22 Cholecalciferol (Vitamin D3) 75 mcg PO DAILY 12/18/22 12/18/22 [Vitamin D3 (3000 Iu)] Donepezil [Aricept] 10 mg PO HS 12/18/22 12/18/22 Furosemide [Lasix] 20 mg PO DAILY 12/18/22 12/18/22 Insulin Glargine,Hum.rec.anlog 30 units SQ DAILY 12/18/22 12/18/22 [Lantus Solostar Pen] Metoprolol Succinate (ER) [Toprol 50 mg PO DAILY 12/18/22 12/18/22 Xl] Tart Murphy Extract 1 tab PO DAILY 12/18/22 12/18/22 Warfarin Sodium [Jantoven] 2 mg PO MOWEFR 12/18/22 12/18/22 Warfarin Sodium [Jantoven] 4 mg PO SUTUTHSA 12/18/22 12/18/22 Zinc Gluconate [Zinc] 50 mg PO DAILY 12/18/22 12/18/22 glipiZIDE XL [Glucotrol Xl] 10 mg PO BID 12/18/22 12/18/22 hydrALAZINE HCL [Apresoline] 25 mg PO BID 12/18/22 12/18/22 lisinopriL [Zestril] 20 mg PO BID 12/18/22 12/18/22 Previous Rx's Medication Instructions Recorded metFORMIN HCL [Glucophage] 1,000 mg PO BID #0 01/20/16 Allergies Allergy/AdvReac Type Severity Reaction Status Date / Time No Known Allergies Allergy Verified 12/18/22 17:41 Review of Systems ROS Statement: Those systems with pertinent positive or pertinent negative responses have been documented in the HPI. ROS Other: All systems not noted in ROS Statement are negative. Past Medical History Past Medical History: COPD, Diabetes Mellitus, Hyperlipidemia, Hypertension, Myocardial Infarction (UT) Additional Past Medical History / Comment(s): Recent sore R great toe-healed, gout. Last Myocardial Infarction Date:: 1991 History of Any Multi-Drug Resistant Organisms: None Reported Past Surgical History: Heart Catheterization, Heart Catheterization With Stent Additional Past Surgical History / Comment(s): 01/18/16 cardiac stents to RCA x2. Other surgical hx: balloon angiioplasty 1991, nathan cataracts Past Anesthesia/Blood Transfusion Reactions: No Reported Reaction Date of Last Stent Placement:: 01/19/16 Past Psychological History: No Psychological Hx Reported Smoking Status: Never smoker Past Alcohol Use History: None Reported Past Drug Use History: None Reported - Past Family History Mother Family Medical History: No Reported History Additional Family Medical History / Comment(s): Mother is healthy and is 89yrs old. Father Family Medical History: Cancer Additional Family Medical History / Comment(s): "blood cancer". at the age of 73 yrs. General Exam Limitations: altered mental status General appearance: alert, in no apparent distress, anxious, lethargic, in distress Head exam: Present: atraumatic, normocephalic, normal inspection Eye exam: Present: normal appearance, PERRL, EOMI. Absent: scleral icterus, conjunctival injection, periorbital swelling ENT exam: Present: normal exam, mucous membranes moist Neck exam: Present: normal inspection. Absent: tenderness, meningismus, lymphadenopathy Respiratory exam: Present: normal lung sounds bilaterally. Absent: respiratory distress, wheezes, rales, rhonchi, stridor Cardiovascular Exam: Present: bradycardia, irregular rhythm, normal heart sound s. Absent: systolic murmur, diastolic murmur, rubs, gallop, clicks GI/Abdominal exam: Present: soft, normal bowel sounds. Absent: distended, tenderness, guarding, rebound, rigid Extremities exam: Present: normal inspection, full ROM, normal capillary refill. Absent: tenderness, pedal edema, joint swelling, calf tenderness Back exam: Present: normal inspection Neurological exam: Present: alert, oriented X3, CN II-XII intact Psychiatric exam: Present: normal affect, normal mood Skin exam: Present: warm, dry, intact, normal color. Absent: rash Course Vital Signs 12/18/22 12/18/22 12/18/22 17:06 19:40 19:47 Temperature 97.6 F 94.6 F L Pulse Rate 54 L 124 H 90 Respiratory 18 19 18 Rate Blood Pressure 134/63 137/63 127/106 O2 Sat by Pulse 97 97 95 Oximetry 12/18/22 12/18/22 12/18/22 20:34 21:15 21:29 Temperature 98.2 F Pulse Rate 80 72 78 Respiratory 18 16 Rate Blood Pressure 130/68 154/81 O2 Sat by Pulse 97 97 Oximetry 12/18/22 12/18/22 21:33 21:45 Temperature 98.7 F Pulse Rate 77 77 Respiratory 18 Rate Blood Pressure 111/75 O2 Sat by Pulse 99 Oximetry - Reevaluation(s) Reevaluation #1: 12/18/22 21:48 Medical record is reviewed Reevaluation #2: 12/18/22 21:49 Patient's heart rate is improving with treatment of hyperkalemia Reevaluation #3: 12/18/22 21:49 Patient family informed results and questions answered Reevaluation #4: 12/18/22 21:45 Was pt. sent in by a medical professional or institution (, PA, [employer]ATE[employer] TECHNICIAN, urgent care, hospital, or care home...) When possible be specific @ -no Did you speak to anyone other than the patient for history (EMS, parent, family, police, friend...)? What history was obtained from this source @ -no Did you review nursing and triage notes (agree or disagree)? Why? @ -agree Are old charts reviewed (outside hosp., previous admission, EMS record, old EKG, old radiological studies, urgent care reports/EKG's, care home records)? R eport findings @ -yes Differential Diagnosis (chest pain, altered mental status, abdominal pain women, abdominal pain men, vaginal bleeding, weakness, fever, dyspnea, syncope, headache, dizziness, GI bleed, back pain, seizure, CVA, palpatations, mental health, musculoskeletal)? @ -prior EKG interpreted by me (3pts min.). @ -yes X-rays interpreted by me (1pt min.). @ -yes CT interpreted by me (1pt min.). @ -yes U/S interpreted by me (1pt. min.). @ -no What testing was considered but not performed or refused? (CT, X-rays, U/S, labs)? Why? @ -none What meds were considered but not given or refused? Why? @ -none Did you discuss the management of the patient with other professionals (pr ofessionals i.e. , PA, [employer] TECHNICIAN, lab, RT, psych nurse, social professionals, clinical services assistant, teacher, chief science officer, rn case manager hospice)? Give summary @ -no Was smoking cessation discussed for >3mins.? @ -no Was critical care preformed (if so, how long)? @ -yes31 Were there social determinants of health that impacted care today? How? (Homelessness, low income, unemployed, alcoholism, drug addiction, transportation, low edu. Level, literacy, decrease access to med. care, assisted, rehab)? @ -none Was there de-escalation of care discussed even if they declined (Discuss DNR or withdrawal of care, Hospice)? DNR status @ -no What co-morbidities impacted this encounter? (DM, HTN, Smoking, COPD, CAD, Cancer, CVA, ARF, Chemo, Hep., AIDS, mental health diagnosis, sleep apnea, morbid obesity)? @ -none Was patient admitted / discharged? Hospital course, mention meds given and route, prescriptions, significant lab abnormalities, going to OR and other pertinent info. @ - 77 male to the emergency department for evaluation of abdominal pain noted. Patient also found to be altered, not acting himself with family. Patient is in significant renal failure with elevated potassium which is treated here in the emergency room today. Patient will be admitted ICU for close monitoring and need for urgent dialysis Admitted Undiagnosed new problem with uncertain prognosis? @ -no Drug Therapy requiring intensive monitoring for toxicity (Heparin, Nitro, Insulin, Cardizem)? @ -no Were any procedures done? @ -no Diagnosis/symptom? @ -Renal failure with elevated potassium severe Acute, or Chronic, or Acute on Chronic? @ -Acute Uncomplicated (without systemic symptoms) or Complicated (systemic symptoms)? @ -Complicated Side effects of treatment? @ -no Exacerbation, Progression, or Severe Exacerbation? @ -exacerbation Poses a threat to life or bodily function? How? (Chest pain, USA, UT, pneumonia, PE, COPD, DKA, ARF, appy, cholecystitis, CVA, Diverticulitis, Homicidal, Suicidal, threat to staff... and all critical care pts) @ -yes severe distress Reevaluation #5: 12/18/22 21:45 Differential Abdominal Pain Men: Appendicitis, cholecystitis, diverticulosis, ischemic bowel, pancreatitis, hepatitis, UTI, gastroenteritis, AAA, incarcerated hernia, bowel obstruction, constipation, inflammatory bowel, hepatitis, peptic ulcer disease, splenic infarction, perforated viscus, testicular torsion, this is not meant to be an all-inclusive list Differential Weakness: Hypoglycemia, shock, sepsis, hyponatremia, anemia, infection, UT, ETOH, adverse medicine reaction, overdose, stroke, this is not meant to be an all-inclusive list. - Consultations Consultation #1: Spoke with Dr. Comer who accepts the patient for the ICU Consultation #2: Spoke with [facility] physicians who also agrees to admit this patient Consultation #3: Spoke with Dr. Horowitz who will obtain access in the ICU Spoke with nephrology who is aware of patient's renal failure with elevated potassium Medical Decision Making - Medical Decision Making 77 male to the emergency department for evaluation of abdominal pain noted. Patient also found to be altered, not acting himself with family. Patient is in significant renal failure with elevated potassium which is treated here in the emergency room today. Patient will be admitted ICU for close monitoring and need for urgent dialysis - Lab Data Result diagrams: 12/25/22 07:36 12/25/22 07:36 Lab Results 12/18/22 12/18/22 12/18/22 Range/Units 17:11 17:11 17:11 WBC 11.2 H (3.8-10.6) k/uL RBC 3.63 L (4.30-5.90) m/uL Hgb 10.5 L (13.0-17.5) gm/dL Hct 32.7 L (39.0-53.0) % MCV 90.2 (80.0-100.0) fL MCH 28.9 (25.0-35.0) pg MCHC 32.1 (31.0-37.0) g/dL RDW 14.5 (11.5-15.5) % Plt Count 317 (150-450) k/uL MPV 7.8 Neutrophils % 91 % Lymphocytes % 5 % Monocytes % 3 % Eosinophils % 0 % Basophils % 0 % Neutrophils # 10.2 H (1.3-7.7) k/uL Lymphocytes # 0.6 L (1.0-4.8) k/uL Monocytes # 0.3 (0-1.0) k/uL Eosinophils # 0.0 (0-0.7) k/uL Basophils # 0.0 (0-0.2) k/uL Hypochromasia Slight Sodium 136 L (137-145) mmol/L Potassium 8.8 H* (3.5-5.1) mmol/L Chloride 103 (98-107) mmol/L Carbon Dioxide 9 L* (22-30) mmol/L Anion Gap 24 mmol/L BUN 132 H* (9-20) mg/dL Creatinine 9.45 H* (0.66-1.25) mg/dL Est GFR (CKD-EPI)AfAm 6 (>60 ml/min/1.73 sqM) Est GFR (CKD-EPI)NonAf 5 (>60 ml/min/1.73 sqM) Glucose 247 H (74-99) mg/dL Estimated Ave Glu mg/dL mg/dL Hemoglobin A1c (<=6.0) % Lactic Ac Sepsis Rflx Plasma Lactic Acid Kenny 6.4 H* (0.7-2.0) mmol/L Calcium 8.7 (8.4-10.2) mg/dL Total Bilirubin 0.4 (0.2-1.3) mg/dL AST 27 (17-59) U/L ALT 23 (4-49) U/L Alkaline Phosphatase 52 (38-126) U/L Total Protein 6.9 (6.3-8.2) g/dL Albumin 4.1 (3.5-5.0) g/dL Amylase 182 H (30-110) U/L Lipase 485 H (23-300) U/L 12/18/22 12/18/22 Range/Units 17:11 18:51 WBC (3.8-10.6) k/uL RBC (4.30-5.90) m/uL Hgb (13.0-17.5) gm/dL Hct (39.0-53.0) % MCV (80.0-100.0) fL MCH (25.0-35.0) pg MCHC (31.0-37.0) g/dL RDW (11.5-15.5) % Plt Count (150-450) k/uL MPV Neutrophils % % Lymphocytes % % Monocytes % % Eosinophils % % Basophils % % Neutrophils # (1.3-7.7) k/uL Lymphocytes # (1.0-4.8) k/uL Monocytes # (0-1.0) k/uL Eosinophils # (0-0.7) k/uL Basophils # (0-0.2) k/uL Hypochromasia Sodium (137-145) mmol/L Potassium (3.5-5.1) mmol/L Chloride (98-107) mmol/L Carbon Dioxide (22-30) mmol/L Anion Gap mmol/L BUN (9-20) mg/dL Creatinine (0.66-1.25) mg/dL Est GFR (CKD-EPI)AfAm (>60 ml/min/1.73 sqM) Est GFR (CKD-EPI)NonAf (>60 ml/min/1.73 sqM) Glucose (74-99) mg/dL Estimated Ave Glu mg/dL 183 mg/dL Hemoglobin A1c 8.0 H (<=6.0) % Lactic Ac Sepsis Rflx Y Plasma Lactic Acid Kenny (0.7-2.0) mmol/L Calcium (8.4-10.2) mg/dL Total Bilirubin (0.2-1.3) mg/dL AST (17-59) U/L ALT (4-49) U/L Alkaline Phosphatase (38-126) U/L Total Protein (6.3-8.2) g/dL Albumin (3.5-5.0) g/dL Amylase (30-110) U/L Lipase (23-300) U/L - EKG Data -: EKG Interpreted by Me (EKG is sinus bradycardia 57 ID 192 QRS to 17 QTc 502 QTC 269) EKG shows normal: sinus rhythm (EKG is sinus 77. ID 337 QRS 104 QTC 429) - Radiology Data Radiology results: report reviewed (Chest x-ray, CT of the abdomen and pelvis negative for acute disease), image reviewed Critical Care Time Critical Care Time: Yes Total Critical Care Time: 98 Disposition Clinical Impression: Abdominal pain, Pancreatitis, Hyperkalemia, ESDRAS (acute kidney injury), Renal failure Disposition: ADMITTED IP TO THIS [facility] Condition: Critical Is patient prescribed a controlled substance at d/c from ED?: No Time of Disposition: 20:30
[2022-12-18 17:40] LABS: Basophils % (A) 0 %; Eosinophils % (A) 0 %; HCT 32.7 % (39.0-53.0); HGB 10.5 gm/dL (13.0-17.5); Hypochromasia Slight; Lymphocytes # (A) 0.6 k/uL (1.0-4.8); Lymphocytes % (A) 5 %; MCH 28.9 pg (25.0-35.0); MCHC 32.1 g/dL (31.0-37.0); MCV 90.2 fL (80.0-100.0); Mean Platelet Volume 7.8; Monocytes # (A) 0.3 k/uL (0-1.0); Monocytes % (A) 3 %; Neutrophils # (A) 10.2 k/uL (1.3-7.7); Neutrophils % (A) 91 %; Platelet Count 317 k/uL (150-450); RBC 3.63 m/uL (4.30-5.90); RDW 14.5 % (11.5-15.5); WBC 11.2 k/uL (3.8-10.6)
[2022-12-18 18:04] LABS: ALT 23 U/L (4-49); AST 27 U/L (17-59); African American GFR (CKD) 6 (>60 ml/min/1.73 sqM); Albumin 4.1 g/dL (3.5-5.0); Alkaline Phosphatase 52 U/L (38-126); Amylase 182 U/L (30-110); Anion Gap 24 mmol/L; Calcium 8.7 mg/dL (8.4-10.2); Chloride 103 mmol/L (98-107); Glucose 247 mg/dL (74-99); Lipase 485 U/L (23-300); Non-African American GFR(CKD) 5 (>60 ml/min/1.73 sqM); Sodium 136 mmol/L (137-145); Total Bilirubin 0.4 mg/dL (0.2-1.3); Total Protein 6.9 g/dL (6.3-8.2)
[2022-12-18 18:30] LABS: Blood Urea Nitrogen 132 mg/dL (9-20); Carbon Dioxide 9 mmol/L (22-30); Potassium 8.8 mmol/L (3.5-5.1)
[2022-12-18] MEDS ORDERED: DEXTROSE 50% SYRINGE 50 ML IVP STA ×2 (19:26→23:08)
[2022-12-18] MEDS ORDERED: CALCIUM CHLORIDE 0.5 GM in SODIUM CHLORIDE 0.9% 50 ML IVPB ONE (19:26)
[2022-12-18] MEDS ORDERED: SODIUM BICARB 8.4% 50 ML SYR (1 MEQ/ML) IV STA ×2 (19:26)
[2022-12-18] MEDS ORDERED: INSULIN REGULAR 100 UNIT/ML VIAL (IV) IV ONE ×2 (19:26→23:08)
[2022-12-18] MEDS ORDERED: NALOXONE 0.4 MG/ML 1 ML VIAL IV PRN (20:32)
[2022-12-18] MEDS ORDERED: IPRATROPIUM-ALBUTEROL 3 ML NEB INHALATION PRN (20:32)
--- NOTE | 2022-12-18 20:42 | CT ---
EXAMINATION TYPE: CT abdomen pelvis wo con CT DLP: 910.5 mGycm, Automated exposure control for dose reduction was used. DATE OF EXAM: 12/18/2022 8:29 PM COMPARISON: None. CLINICAL INDICATION:Male, 77 years old with history of pain; abdominal pain and decreased appetite TECHNIQUE: Axial CT of the ;CT abdomen pelvis wo con;Sagittal and coronal reformats were created on a separate workstation. Contrast used: mL of , (none if empty) Oral contrast used: without Oral Contrast (none if empty) FINDINGS: LOWER CHEST: Streaky atelectasis in the lung bases. The heart is mildly enlarged for size. Right intr afissural lymph node. ABDOMEN LIVER: Unremarkable GALLBLADDER AND BILE DUCTS: Unremarkable. PANCREAS: Unremarkable. SPLEEN: Unremarkable. ADRENAL GLANDS: Unremarkable. KIDNEYS AND URETERS: No evidence of hydronephrosis or renal calculus. The ureters are unremarkable. PELVIS BLADDER: Unremarkable REPRODUCTIVE: Unremarkable. ABDOMEN & PELVIS STOMACH AND BOWEL: No evidence of bowel obstruction. Second portion duodenal diverticulum. The small bowel and colon are relatively decompressed except for the cecum and ascending colon. PERITONEUM/RETROPERITONEUM: No evidence of pneumoperitoneum or free fluid. VASCULATURE: Moderate atherosclerotic calcifications are present throughout the abdominal aorta and i ts branches. No evidence of aortic aneurysm. MUSCULOSKELETAL: No acute osseous abnormalities. Mild disc degeneration changes are present throughou t the thoracolumbar spine. Degeneration changes of the hips osteophyte formation and joint space tear ing. LYMPH NODES: No gross evidence for lymphadenopathy. SOFT TISSUE/ABDOMINAL WALL: Unremarkable IMPRESSION: No evidence for acute abdominal process to explain the patient's pain. No obstructive uropathy. The c olon and small bowel are relatively decompressed.
--- NOTE | 2022-12-18 21:04 | XR ---
EXAMINATION TYPE: XR chest 1V portable DATE OF EXAM: 12/18/2022 8:48 PM CLINICAL INDICATION:Male, 77 years old with history of pain; [facility] COMPARISON: Chest radiographs from TECHNIQUE: XR chest 1V portable Frontal view of the chest. FINDINGS: Lungs/Pleura: There is no evidence of pleural effusion, focal consolidation, or pneumothorax. Pulmonary vascularity: Unremarkable. Heart/mediastinum: Cardiomediastinal silhouette is enlarged and stable. Musculoskeletal: No acute osseous pathology. IMPRESSION: 1. No acute cardiopulmonary disease/process. 2. Similar cardiomegaly
[2022-12-18] MEDS ORDERED: CALCIUM GLUCONATE IN NACL 2 GM in SALINE 1 100ML.BAG IVPB ONE (21:13)
[2022-12-18] MEDS ORDERED: ALBUTEROL NEBULIZED (CONC) 20 MG, SODIUM CHLORIDE 0.9% NEBULIZ 3 ML INHALATION ONE ×2 (21:14)
[2022-12-18] MEDS ORDERED: ALBUTEROL NEBULIZED 2.5 MG/3 ML INHALATION STA (21:14)
[2022-12-18 21:23] LABS: Glucose,Whole Blood 223 mg/dL (70-110)
[2022-12-18 21:24] LABS: Appearance,Urine Clear (Clear); Bilirubin,Urine Negative (Negative); Blood,Urine Negative (Negative); Color,Urine Yellow; Glucose,Urine (UA) Negative (Negative); Ketones,Urine Negative (Negative); Leukocyte Esterase,Urine Negative (Negative); Nitrite,Urine Negative (Negative); Protein,Urine Trace (Negative); Specific Gravity,Urine 1.018 (1.001-1.035); Urobilinogen,Urine <2.0 mg/dL (<2.0)
[2022-12-18 22:05] LABS: Glucose,Whole Blood 244 mg/dL (70-110)
[2022-12-18 22:25] LABS: INR 4.6 (<1.2); Partial Thromboplastin Time 36.4 sec (22.0-30.0); Prothrombin Time 44.8 sec (10.0-12.5)
[2022-12-18] MEDS ORDERED: LORazepam 2 MG/ML INJ IV STA (22:45)
[2022-12-18 22:53] LABS: African American GFR (CKD) 6 (>60 ml/min/1.73 sqM); Anion Gap 20 mmol/L; Calcium 8.4 mg/dL (8.4-10.2); Chloride 110 mmol/L (98-107); Glucose 227 mg/dL (74-99); Magnesium 2.7 mg/dL (1.6-2.3); Non-African American GFR(CKD) 5 (>60 ml/min/1.73 sqM); Sodium 139 mmol/L (137-145)
[2022-12-18 22:58] LABS: Potassium 7.6 mmol/L (3.5-5.1)
[2022-12-18 22:59] LABS: Blood Urea Nitrogen 117 mg/dL (9-20); Carbon Dioxide 9 mmol/L (22-30)
[2022-12-18] MEDS ORDERED: SODIUM ZIRCONIUM CYCLOSILICATE 10 GM PACKET PO ONE (23:03)
[2022-12-18] MEDS ORDERED: CALCIUM GLUCONATE IN NACL 1 GM in SALINE 1 100ML.BAG IVPB ONE (23:08)
[2022-12-18] MEDS: DEXTROSE 5% IN WATER 1,000 ML with SODIUM BICARB (1 MEQ/ML) 150 ML IV SCH (23:10)
[2022-12-19] MEDS ORDERED: DEXTROSE 50% SYRINGE 50 ML IVP PRN ×2 (00:12)
--- NOTE | 2022-12-19 01:19 | OP ---
OPERATIVE REPORT DATE OF SERVICE : PREOPERATIVE DIAGNOSIS: Acute on chronic renal failure with high potassium. POSTOPERATIVE DIAGNOSIS: Acute on chronic renal failure with high potassium. PROCEDURE PERFORMED: Ultrasound-guided dialysis catheter placed, right femoral approach. DESCRIPTION OF PROCEDURE: The patient was seen in the intensive care unit. Right groin was prepped and drapes applied in a sterile manner. 1% lidocaine were infected in groin area. Ultrasound- guided micropuncture introduced into the right femoral vein. Micropuncture guidewire was passed and 4-Ecuadorean dilator advanced on top of the guidewire. After that, we passed a regular guidewire without any resistance. Dilator was advanced. Then, we placed a dialysis catheter on the top of the guidewire. The guidewire was removed, flushed with heparin saline and hep-locked, secured with 3-0 nylon. The patient tolerated the procedure well. MMDEBRAL / GOLDENN: [id number] /
--- NOTE | 2022-12-19 03:23 | P.HPIM ---
History of Present Illness H&P Date: 12/18/22 Chief Complaint: abd pain , altered mental status 77 year old male with DM patient was brought in for evaluation due to altered mental status and abd pain, at time of my evaluation , no family available at bedside. patient confused and provides very limited history , which was obtained from reviewing medical records and ED note. family mentioned sudden onset abd pain and confusion for which he was brought in for evaluation, no report of URI, known sick contacts, or falls. positive history of dark maroon bowel movement. no history of kidney disease, initial workup in the ED showed elevated BUN and cr along with elevated K level 8.8 with acute EKG changes , IV calcium given and K shifters, vascular surgery and nephrology notified for emergent HD. currently patient is receiving HD in the ICU while in the ED, suarez cath inserted and 200 cc urine was drained, non bloody . since then no further urine output, mentioned, he was recently treated for cellulitis of bilateral lower extremity with antibiotics , possibly Bactrim review of systems unable to obtain due to mental status on exam Constitutional: No acute distress, confused, follows simple commands Eyes: Anicteric sclerae, moist conjunctiva, Pupils equal round reactive to light ENMT: NC/AT Oropharynx clear, no erythema, or exudates Neck: Supple, no masses, or JVD No carotid bruits No thyromegaly Lungs: Clear to auscultation Clear to percussion Normal respiratory effort, no accessory muscle use Cardiovascular: Heart regular in rate and rhythm, No murmurs, gallops, or rubs No peripheral edema Abdominal: Soft Nontender, no guarding, rebound or rigidity Abdomen moving with respiration Normoactive bowel sounds No hepatomegaly, No splenomegaly No palpable mass No abdominal wall hernia noted Skin: chronic skin changes bilateral legs, with scabbing Extremities: No digital cyanosis No clubbing Pedal pulses intact and symmetrical Radial pulses intact and symmetrical No calf tenderness Psychiatric: awake, confused , follows simple commands Neuro Muscles Strength 4/5 in all 4 extremities unable to perform full neuro exam due to patient mental status Lymphatics: no palpable cervical or supraclavicular lymph nodes Past Medical History Past Medical History: COPD, Diabetes Mellitus, Hyperlipidemia, Hypertension, Myocardial Infarction (HI) Additional Past Medical History / Comment(s): Recent sore R great toe-healed, gout. Last Myocardial Infarction Date:: 1991 History of Any Multi-Drug Resistant Organisms: None Reported Past Surgical History: Heart Catheterization, Heart Catheterization With Stent Additional Past Surgical History / Comment(s): 01/18/16 cardiac stents to RCA x2. Other surgical hx: balloon angiioplasty 1991, nathan cataracts Past Anesthesia/Blood Transfusion Reactions: No Reported Reaction Date of Last Stent Placement:: 01/19/16 Past Psychological History: No Psychological Hx Reported Smoking Status: Never smoker Past Alcohol Use History: None Reported Past Drug Use History: None Reported - Past Family History Mother Family Medical History: No Reported History Additional Family Medical History / Comment(s): Mother is healthy and is 89yrs old. Father Family Medical History: Cancer Additional Family Medical History / Comment(s): "blood cancer". at the age of 73 yrs. Medications and Allergies Home Medications Medication Instructions Recorded Confirmed Type Atorvastatin [Lipitor] 80 mg PO HS 01/14/16 12/18/22 History Loratadine 10 mg PO DAILY 01/14/16 12/18/22 History amLODIPine BESYLATE [Norvasc] 5 mg PO BID 01/14/16 12/18/22 History busPIRone HCL 15 mg PO DAILY 01/14/16 12/18/22 History cloNIDine HCL [Catapres] 0.1 mg PO BID 01/14/16 12/18/22 History metFORMIN HCL [Glucophage] 1,000 mg PO BID #0 01/20/16 12/18/22 Rx Ascorbic Acid [Vitamin C] 500 mg PO DAILY 12/18/22 12/18/22 History Cholecalciferol (Vitamin D3) 75 mcg PO DAILY 12/18/22 12/18/22 History [Vitamin D3 (3000 Iu)] Donepezil [Aricept] 10 mg PO HS 12/18/22 12/18/22 History Furosemide [Lasix] 20 mg PO DAILY 12/18/22 12/18/22 History Insulin Glargine,Hum.rec.anlog 30 units SQ DAILY 12/18/22 12/18/22 History [Lantus Solostar Pen] Metoprolol Succinate (ER) [Toprol 50 mg PO DAILY 12/18/22 12/18/22 History Xl] Tart Murphy Extract 1 tab PO DAILY 12/18/22 12/18/22 History Warfarin Sodium [Jantoven] 2 mg PO MOWEFR 12/18/22 12/18/22 History Warfarin Sodium [Jantoven] 4 mg PO SUTUTHSA 12/18/22 12/18/22 History Zinc Gluconate [Zinc] 50 mg PO DAILY 12/18/22 12/18/22 History glipiZIDE XL [Glucotrol Xl] 10 mg PO BID 12/18/22 12/18/22 History hydrALAZINE HCL [Apresoline] 25 mg PO BID 12/18/22 12/18/22 History lisinopriL [Zestril] 20 mg PO BID 12/18/22 12/18/22 History Allergies Allergy/AdvReac Type Severity Reaction Status Date / Time No Known Allergies Allergy Verified 12/18/22 17:41 Physical Exam Vitals: Vital Signs Temp Pulse Resp BP Pulse Ox 12/18/22 21:45 77 12/18/22 21:33 98.7 F 77 18 111/75 99 12/18/22 21:29 78 12/18/22 21:15 72 16 154/81 97 12/18/22 20:34 98.2 F 80 18 130/68 97 12/18/22 19:47 90 18 127/106 95 12/18/22 17:06 97.6 F 54 L 18 134/63 97 Intake and Output 12/18/22 12/18/22 12/19/22 14:59 22:59 06:59 Output Total 150 Balance -150 Output: Urine 150 Uretheral (Suarez) 150 Other: Weight 90.718 kg Results CBC & Chem 7: 12/18/22 17:11 12/18/22 22:22 Labs: Abnormal Lab Results - Last 24 Hours (Table) 12/18/22 12/18/22 12/18/22 Range/Units 17:11 17:11 17:11 WBC 11.2 H (3.8-10.6) k/uL RBC 3.63 L (4.30-5.90) m/uL Hgb 10.5 L (13.0-17.5) gm/dL Hct 32.7 L (39.0-53.0) % Neutrophils # 10.2 H (1.3-7.7) k/uL Lymphocytes # 0.6 L (1.0-4.8) k/uL PT (10.0-12.5) sec INR (<1.2) APTT (22.0-30.0) sec Sodium 136 L (137-145) mmol/L Potassium 8.8 H* (3.5-5.1) mmol/L Chloride (98-107) mmol/L Carbon Dioxide 9 L* (22-30) mmol/L BUN 132 H* (9-20) mg/dL Creatinine 9.45 H* (0.66-1.25) mg/dL Glucose 247 H (74-99) mg/dL POC Glucose (mg/dL) (70-110) mg/dL Plasma Lactic Acid Kenny 6.4 H* (0.7-2.0) mmol/L Magnesium (1.6-2.3) mg/dL Amylase 182 H (30-110) U/L Lipase 485 H (23-300) U/L Urine Protein (Negative) 12/18/22 12/18/22 12/18/22 Range/Units 20:45 21:21 21:23 WBC (3.8-10.6) k/uL RBC (4.30-5.90) m/uL Hgb (13.0-17.5) gm/dL Hct (39.0-53.0) % Neutrophils # (1.3-7.7) k/uL Lymphocytes # (1.0-4.8) k/uL PT (10.0-12.5) sec INR (<1.2) APTT (22.0-30.0) sec Sodium (137-145) mmol/L Potassium (3.5-5.1) mmol/L Chloride (98-107) mmol/L Carbon Dioxide (22-30) mmol/L BUN (9-20) mg/dL Creatinine (0.66-1.25) mg/dL Glucose (74-99) mg/dL POC Glucose (mg/dL) 223 H (70-110) mg/dL Plasma Lactic Acid Kenny 5.3 H* (0.7-2.0) mmol/L Magnesium (1.6-2.3) mg/dL Amylase (30-110) U/L Lipase (23-300) U/L Urine Protein Trace H (Negative) 12/18/22 12/18/22 12/18/22 Range/Units 21:23 22:04 22:22 WBC (3.8-10.6) k/uL RBC (4.30-5.90) m/uL Hgb (13.0-17.5) gm/dL Hct (39.0-53.0) % Neutrophils # (1.3-7.7) k/uL Lymphocytes # (1.0-4.8) k/uL PT 44.8 H (10.0-12.5) sec INR 4.6 H (<1.2) APTT 36.4 H (22.0-30.0) sec Sodium (137-145) mmol/L Potassium 7.6 H* (3.5-5.1) mmol/L Chloride 110 H (98-107) mmol/L Carbon Dioxide 9 L* (22-30) mmol/L BUN 117 H* (9-20) mg/dL Creatinine 8.88 H* (0.66-1.25) mg/dL Glucose 227 H (74-99) mg/dL POC Glucose (mg/dL) 244 H (70-110) mg/dL Plasma Lactic Acid Kenny (0.7-2.0) mmol/L Magnesium 2.7 H (1.6-2.3) mg/dL Amylase (30-110) U/L Lipase (23-300) U/L Urine Protein (Negative) Assessment and Plan Assessment: 77 year old male with DM , coming in for abd pain and confusion , workup in the ED showed renal failure with hyperkalemia and EKG changes , I discussed the case with ED doc and I accepted the admission for hyperkalemia with metabolic acidosis requiring emergent hemodialysis with anticipated length of stay > 2 midnights acute metabolic encephalopathy metabolic acidosis with severe hyperkalemia EKG showing wide QRS with hyperacute T wave (sine-wave pattern) dehydration with ESDRAS emergent HD nephrology and vascular surgery consult IV calcium given in the ED K shifters admission to the ICU renal function showing K 8.8 BUN 132, Cr 9.4 , unknown baseline suarez cath inserted with only 200 cc out , no further urine output noted lactic acidosis 6.4 abd pain , CT abd no acute pathology CXR no acute pathology chronic conditions hypertension reusme home BP meds with hold parameters on hydralazin and clonidine hold lisinopril due to ESDRAS h/o CAD ? if history of afib , on coumadin hold coumadin due to possible GI bleeding acute anemia Hgb 10.5 with reported maroon BM monitor Hgb hold coumadin GI consult PPI daily resume statin full code DVT PPX mechanical due to suspected GI bleeding
--- NOTE | 2022-12-19 04:15 | P.CNPUL ---
History of Present Illness Consult date: 12/19/22 Requesting physician: Austyn Akins Reason for consult: other (ICU management) Chief complaint: Altered mental status and weakness History of present illness: I am seeing this patient in new consultation today 12/19/2022 in the intensive care unit after the patient presented to the emergency room yesterday evening altered and very weak. He was found to be in acute renal failure and started on emergent hemodialysis. Patient is a 77-year-old white male with past medical history significant for diabetes mellitus, hyperlipidemia, hypertension, coronary artery disease with previous stents, paroxysmal atrial fibrillation anticoagulated on warfarin, COPD, and lower extremity cellulitis. Patient reportedly received treatment for bilateral lower extremity cellulitis on outpatient basis within the last month or so. Patient's unsure of the antibiotic, may have been on Bactrim. Patient is currently confused, and overall a poor historian. I did call the patient's who states that over the last 2 weeks he has not been eating or drinking much. He's been very weak and confused. On arrival to the emergency room yesterday evening the patient was found to be in acute renal failure. He was severely acidotic and hyperkalemic with a potassium of 9.45. There were EKG related changes with bradycardia and widening of the QRS complex. Patient was treated twice with a k cocktail including calcium gluconate, D50W, regular insulin, albuterol, and 2 A of sodium bicarb. Patient also received a dose Lokelma. A femoral hemodialysis catheter was placed by vascular surgery, and the patient is currently undergoing emergent hemodialysis. Patient was admitted to the intensive care unit. He is currently lying in bed, on room air, in no acute distress. Blood pressure normotensive, not on any vasopressors. 3 amps sodium bicarbonate in D5W is infusing at 100 ML's per hour. Heart rhythm currently normal sinus with rate of 80 bpm. Chest x-ray on arrival showed no acute cardiopulmonary process. CBC on arrival showed some mild leukocytosis with a WBC count of 11.2, hemoglobin 10.5, hematocrit 32.7, platelets 317. CMP on arrival showed a sodium 136, potassium 8.8, chlori de 103, serum bicarbonate 9, anion gap 24, BUN 132, creatinine 9.45, glucose 247. Lactic acid was elevated at 6.4 and is down to 5.3. Urinalysis not concerning for UTI. Lipase mildly elevated at 485. LFTs not elevated. Patient is reporting some mild abdominal pain with palpation. No nausea or vomiting. Non-jaundiced. INR supratherapeutic at 4.6. reports that the patient had burgundy-colored loose stools at home. No further bloody stools or melena reported by nursing staff. CT of abdomen and pelvis without contrast did not show any acute abdominal process. No obstructive uropathy. Afebrile. Patient is currently hemodynamically stable, and monitored on the intensive care unit. Review of Systems REVIEW OF SYSTEMS: CONSTITUTIONAL: Denies any recent significant weight loss or weight gain. EYES: Denies change in vision. EARS, NOSE, MOUTH, THROAT: Denies headaches, denies sore throat. CARDIOVASCULAR: Denies chest pain, palpitations or syncopal episodes. RESPIRATORY: Denies shortness of breath, cough, congestion or hemoptysis. GASTROINTESTINAL: Denies nausea and vomiting, or diarrhea. Admits generalized abdominal pain and reduced appetite. GENITOURINARY: Denies hematuria, denies infections. MUSKULOSKELETAL: Denies pain, denies swelling. INTEGUMENTARY: Denies rash, denies eczema. Reports infected lower extremities NEUROLOGICAL: Denies recent memory loss, no recent seizure activity. PSYCHIATRIC: Denies anxiety, denies depression. HEMATOLOGIC/LYMPHATIC: Denies anemia, denies enlarged lymph node Past Medical History Past Medical History: COPD, Diabetes Mellitus, Hyperlipidemia, Hypertension, Myocardial Infarction (ND) Additional Past Medical History / Comment(s): Recent sore R great toe-healed, gout. Last Myocardial Infarction Date:: 1991 History of Any Multi-Drug Resistant Organisms: None Reported Past Surgical History: Heart Catheterization, Heart Catheterization With Stent Additional Past Surgical History / Comment(s): 01/18/16 cardiac stents to RCA x2. Other surgical hx: balloon angiioplasty 1991, nathan cataracts Past Anesthesia/Blood Transfusion Reactions: No Reported Reaction Date of Last Stent Placement:: 01/19/16 Past Psychological History: No Psychological Hx Reported Smoking Status: Never smoker Past Alcohol Use History: None Reported Past Drug Use History: None Reported - Past Family History Mother Family Medical History: No Reported History Additional Family Medical History / Comment(s): Mother is healthy and is 89yrs old. Father Family Medical History: Cancer Additional Family Medical History / Comment(s): "blood cancer". at the age of 73 yrs. Medications and Allergies Home Medications Medication Instructions Recorded Confirmed Type Atorvastatin [Lipitor] 80 mg PO HS 01/14/16 12/18/22 History Loratadine 10 mg PO DAILY 01/14/16 12/18/22 History amLODIPine BESYLATE [Norvasc] 5 mg PO BID 01/14/16 12/18/22 History busPIRone HCL 15 mg PO DAILY 01/14/16 12/18/22 History cloNIDine HCL [Catapres] 0.1 mg PO BID 01/14/16 12/18/22 History metFORMIN HCL [Glucophage] 1,000 mg PO BID #0 01/20/16 12/18/22 Rx Ascorbic Acid [Vitamin C] 500 mg PO DAILY 12/18/22 12/18/22 History Cholecalciferol (Vitamin D3) 75 mcg PO DAILY 12/18/22 12/18/22 History [Vitamin D3 (3000 Iu)] Donepezil [Aricept] 10 mg PO HS 12/18/22 12/18/22 History Furosemide [Lasix] 20 mg PO DAILY 12/18/22 12/18/22 History Insulin Glargine,Hum.rec.anlog 30 units SQ DAILY 12/18/22 12/18/22 History [Lantus Solostar Pen] Metoprolol Succinate (ER) [Toprol 50 mg PO DAILY 12/18/22 12/18/22 History Xl] Tart Murphy Extract 1 tab PO DAILY 12/18/22 12/18/22 History Warfarin Sodium [Jantoven] 2 mg PO MOWEFR 12/18/22 12/18/22 History Warfarin Sodium [Jantoven] 4 mg PO SUTUTHSA 12/18/22 12/18/22 History Zinc Gluconate [Zinc] 50 mg PO DAILY 12/18/22 12/18/22 History glipiZIDE XL [Glucotrol Xl] 10 mg PO BID 12/18/22 12/18/22 History hydrALAZINE HCL [Apresoline] 25 mg PO BID 12/18/22 12/18/22 History lisinopriL [Zestril] 20 mg PO BID 12/18/22 12/18/22 History Allergies Allergy/AdvReac Type Severity Reaction Status Date / Time No Known Allergies Allergy Verified 12/18/22 17:41 Physical Exam Vitals: Vital Signs Temp Pulse Resp BP Pulse Ox 12/19/22 02:00 83 12 121/61 97 12/19/22 01:50 88 13 121/61 12/19/22 01:40 86 13 126/52 12/19/22 01:30 87 15 137/58 12/19/22 01:20 80 14 137/58 12/19/22 01:10 84 15 129/60 12/19/22 01:00 81 17 97/81 12/19/22 00:50 77 17 97/81 12/19/22 00:40 73 166 H 106/74 12/19/22 00:30 74 15 133/98 12/19/22 00:20 71 19 133/98 12/19/22 00:10 71 19 133/98 12/19/22 00:00 97.8 F 69 17 122/48 12/18/22 23:54 68 18 122/48 12/18/22 23:50 64 18 122/48 12/18/22 23:40 65 18 122/48 12/18/22 23:30 70 17 127/101 12/18/22 23:20 77 18 127/101 12/18/22 23:10 72 16 127/101 12/18/22 23:00 73 17 141/102 12/18/22 22:50 76 18 141/102 12/18/22 22:40 79 17 141/102 12/18/22 22:30 76 16 120/72 12/18/22 22:20 18 120/72 12/18/22 22:10 77 18 133/85 92 L 12/18/22 22:03 18 12/18/22 21:45 77 12/18/22 21:33 98.7 F 77 18 111/75 99 12/18/22 21:29 78 12/18/22 21:15 72 16 154/81 97 12/18/22 20:34 98.2 F 80 18 130/68 97 12/18/22 19:47 90 18 127/106 95 12/18/22 19:40 94.6 F L 124 H 19 137/63 97 12/18/22 17:06 97.6 F 54 L 18 134/63 97 Intake and Output 12/18/22 12/18/22 12/19/22 14:59 22:59 06:59 Intake Total 1200 400 Output Total 150 0 Balance 1050 400 Intake: IV 1200 400 Calcium Gluconate in NaCl 100 1 gm In Saline 1 100ml. bag @ 100 mls/hr IVPB ONCE ONE Rx#:[id number] Dextrose 5% in Water 1, 100 400 000 ml @ 100 mls/hr IV . [id number] PRASANNA with Sodium Bicarb (1 Meq/ml) 150 ml Rx#:[id number] Sodium Chloride 0.9% 1, 1000 000 ml @ 999 mls/hr IV . Q1H1M STA Rx#:[id number] Output: Urine 150 0 Uretheral ([place]) 150 0 Other: Voiding Method Indwelling Catheter Weight 90.718 kg 98.5 kg GENERAL EXAM: Alert and disoriented, 77-year-old male , fairly comfortable in no apparent distress. HEAD: Normocephalic and atraumatic EYES: Normal reaction of pupils, equal size. NOSE: Clear with pink turbinates. THROAT: No erythema or exudates. NECK: No masses, no JVD. CHEST: No chest wall deformity. LUNGS: Equal air entry with no crackles, wheeze, rhonchi or dullness. On room air. No conversational dyspnea or accessory muscle use.. CVS: S1 and S2 normal with no audible murmur, regular rhythm. No extra heart sounds ABDOMEN: No hepatosplenomegaly, active bowel sounds, no guarding or rigidity. No abdominal bruising or distention. SPINE: No scoliosis or deformity SKIN: No rashes. Bilateral legs are edematous and dry/flaky CENTRAL NERVOUS SYSTEM: Patient is oriented to self and in place. Able to follow simple instructions. No focal deficits, tone is normal in all 4 extremities. EXTREMITIES: There is 2+ bilateral lower extremity edema. No clubbing, or cyanosis. Peripheral pulses are intact. Results - Laboratory Findings CBC and BMP: 12/18/22 17:11 12/19/22 05:21 PT/INR, D-dimer PT 44.8 sec (10.0-12.5) H 12/18/22 21:23 INR 4.6 (<1.2) H 12/18/22 21:23 Abnormal lab findings: Abnormal Labs 12/18/22 12/18/22 12/18/22 17:11 17:11 17:11 WBC 11.2 H RBC 3.63 L Hgb 10.5 L Hct 32.7 L Neutrophils # 10.2 H Lymphocytes # 0.6 L PT INR APTT Sodium 136 L Potassium 8.8 H* Chloride Carbon Dioxide 9 L* BUN 132 H* Creatinine 9.45 H* Glucose 247 H POC Glucose (mg/dL) Plasma Lactic Acid Kenny 6.4 H* Magnesium Amylase 182 H Lipase 485 H Urine Protein 12/18/22 12/18/22 12/18/22 20:45 21:21 21:23 WBC RBC Hgb Hct Neutrophils # Lymphocytes # PT INR APTT Sodium Potassium Chloride Carbon Dioxide BUN Creatinine Glucose POC Glucose (mg/dL) 223 H Plasma Lactic Acid Kenny 5.3 H* Magnesium Amylase Lipase Urine Protein Trace H 12/18/22 12/18/22 12/18/22 21:23 22:04 22:22 WBC RBC Hgb Hct Neutrophils # Lymphocytes # PT 44.8 H INR 4.6 H APTT 36.4 H Sodium Potassium 7.6 H* Chloride 110 H Carbon Dioxide 9 L* BUN 117 H* Creatinine 8.88 H* Glucose 227 H POC Glucose (mg/dL) 244 H Plasma Lactic Acid Kenny Magnesium 2.7 H Amylase Lipase Urine Protein 12/19/22 02:18 WBC RBC Hgb Hct Neutrophils # Lymphocytes # PT INR APTT Sodium Potassium Chloride Carbon Dioxide BUN Creatinine Glucose POC Glucose (mg/dL) Plasma Lactic Acid Kenny 2.7 H* Magnesium Amylase Lipase Urine Protein - Diagnostic Findings Chest x-ray: image reviewed Assessment and Plan Assessment: Acute kidney injury/failure requiring emergent hemodialysis likely secondary to intravascular volume depletion, dehydration, and use of debra inhibitors and diuretics Severe metabolic anion gap acidosis and lactic acidosis, improving Severe hyperkalemia, secondary to above, improving Acute metabolic encephalopathy, secondary to above Severe dehydration and reduced oral intake Abdominal pain, CT of abdomen showed no acute intra-abdominal process. Diabetes mellitus type 2 Hyperlipidemia Hypertension History of coronary artery disease and previous ND requiring heart catheterization and stents. History of paroxysmal atrial fibrillation, normally anticoagulated on warfarin Supratherapeutic INR, possible GI bleeding reported at home. No further episodes as inpatient Normocytic normochromic anemia Chronic obstructive pulmonary disease, stable Obesity, with a BMI of 31.2 kg/m Plan: Patient is admitted to the intensive care unit for severe hyperkalemia and emergent hemodialysis. Patient has received a hemodialysis catheter placed by vascular surgery. Currently undergoing emergent hemodialysis. There were EKG associated changes including hyperacute T waves in QRS widening. Currently, heart rhythm appears normal sinus around 80 bpm. I will continue sodium bicarbonate infusion at 100 ML's per hour. All nephrotoxic medications. Urinalysis not concerning for UTI. Trend lactic acid. Hold metformin. NovoLog insulin ACHS to scale. Hold warfarin, and monitor INR. No further reports of GI bleed per nursing. Recheck PT/INR in the morning Patient does have some generalized abdominal pain. CT of the abdomen showed no acute intra-abdominal process. No obstructive uropathy. LFTs not elevated. Mildly elevated pancreatic enzymes. Protonix for GI prophylaxis. CXR noted. on room air. Patient will be monitored in the intensive care unit. Overall prognosis is guarded. Further recommendations are forthcoming. I have personally seen and examined the patient, performed the documentation and the assessment and plan as written. Number of minutes spent on the visit:20 There is a joint evaluation that was done along with the nurse practitioner. Evaluation was done in >30 min. The patient presented to us with nausea and emesis and and altered mentation and extreme weakness and dehydration. He was in acute kidney injury. Is known to have multiple medical problems including COPD, CAD, diabetes mellitus and hypertension and hyperlipidemia. He was also treated for a cellulitis of the lower extremity on outpatient basis for which he was given an antibiotic. The patient came in with severe dehydration, acute kidney injury with a creatinine of 9.4 and a potassium level of 8.8 with some minimal EKG changes. His lactic acid level was at 6.4, admission and he was a lso coagulopathic with an INR of 4.6 and the patient was taking warfarin. He was on room air oxygen. No respiratory distress. His hyperkalemia was initially treated with calcium, bicarb and insulin with D50. Subsequently, he required to undergo hemodialysis was completed yesterday. He has a pretty hemodialysis catheter in his right femoral vein. Morning potassium is down to 5. No EKG changes. Hemodynamically stable on no pressors. He received a total of 2 L in the emergency and currently is on bicarb infusion at the rate of 100 mL an hour. Urine output is bloody and he started to make some urine output for now. No signs of any respiratory distress. Cardiac rhythm is sinus. Monitor electrolytes, continue the bicarb infusion for today, stop the DEBRA inhibitor's and avoid any form of nephrotoxic agents. Stop to oral hypoglycemic medications including Glucotrol. Stop the warfarin for now. Give the patient 5 mg of vitamin K. Awaiting ultrasound the kidneys to rule out hydronephrosis. CAT scan of the abdomen showed no evidence of hydronephrosis to no significant intra-abdominal abnormalities. No kidney stones or obstructive uropathy. Lactic acid level is improving. Potassium is improving. We'll keep the patient ICU. We'll continue to follow. Time with Patient: Greater than 30
[2022-12-19 05:51] LABS: ALT 19 U/L (4-49); AST 24 U/L (17-59); African American GFR (CKD) 8 (>60 ml/min/1.73 sqM); Alkaline Phosphatase 53 U/L (38-126); Anion Gap 16 mmol/L; Blood Urea Nitrogen 85 mg/dL (9-20); Calcium 8.1 mg/dL (8.4-10.2); Carbon Dioxide 19 mmol/L (22-30); Chloride 103 mmol/L (98-107); Glucose 163 mg/dL (74-99); Magnesium 2.3 mg/dL (1.6-2.3); Non-African American GFR(CKD) 7 (>60 ml/min/1.73 sqM); Sodium 138 mmol/L (137-145); Total Bilirubin 0.3 mg/dL (0.2-1.3); Total Protein 5.5 g/dL (6.3-8.2)
[2022-12-19 06:16] LABS: Prothrombin Time 52.9 sec (10.0-12.5)
[2022-12-19 06:53] LABS: INR 5.4 (<1.2)
[2022-12-19 07:13] LABS: Glucose,Whole Blood 139 mg/dL (70-110)
--- NOTE | 2022-12-19 07:16 | XR ---
EXAMINATION TYPE: XR chest 1V DATE OF EXAM: 12/19/2022 COMPARISON: 1113. HISTORY: Shortness of breath TECHNIQUE: Single frontal view of the chest is obtained. FINDINGS: Underlying COPD. There is a 1 cm nodule left upper lobe. No pleural effusion or pneumothor ax. Atherosclerotic change aorta. Coarsening of the interstitium. IMPRESSION: 1. Coarsened interstitium may been the basis of chronic lung disease. Mild venous congestion or inter stitial pneumonitis in the differential diagnosis. 2. 1 cm left upper lobe pulmonary nodule.
[2022-12-19] MEDS: INSULIN ASPART (NovoLOG) 100 UNIT/ML VIAL SQ SCH ×4 (07:23→20:08)
[2022-12-19] MEDS ORDERED: PHYTONADIONE 5 MG in SODIUM CHLORIDE 0.9% 50 ML IVPB STA (08:21)
--- NOTE | 2022-12-19 08:31 | US ---
EXAMINATION TYPE: US kidneys/renal and bladder DATE OF EXAM: 12/19/2022 COMPARISON: NONE CLINICAL INDICATION: Male, 77 years old with history of Bloody Urine/Acute Renal Failure/Elevated INR ; Hematuria EXAM MEASUREMENTS: Right Kidney: 11.2 x 5.4 x 4.9 cm Left Kidney: 11.3 x 5.3 x 5.3 cm *Technical limitations due to patient's body habitus and large amount of overlying bowel gas Right Kidney: no evidence of hydronephrosis Left Kidney: no evidence of hydronephrosis Bladder: Quezada Catheter IMPRESSION: No hydronephrosis or nephrolithiasis.
[2022-12-19] MEDS: DEXTROSE 5% IN WATER 1,000 ML with SODIUM BICARB (1 MEQ/ML) 150 ML IV SCH (08:33)
[2022-12-19] MEDS: amLODIPine 5 MG TAB PO SCH ×2 (08:50→20:17)
[2022-12-19] MEDS: hydrALAZINE HCL 25 MG TAB PO SCH ×2 (08:50→20:17)
[2022-12-19] MEDS: cloNIDine HCL 0.1 MG TAB PO SCH ×2 (08:50→20:16)
[2022-12-19] MEDS: PANTOPRAZOLE 40 MG/10 ML VIAL IV SCH (08:50)
[2022-12-19] MEDS: METOPROLOL SUCCINATE (ER) 50 MG TAB.ER.24H PO SCH (09:00)
[2022-12-19 09:31] LABS: Hepatitis B Surface AB- Quant 3.5 mIU/mL
[2022-12-19 09:46] LABS: Hepatitis B Surface Antigen Nonreactive
--- NOTE | 2022-12-19 10:24 | P.PN ---
Subjective Progress Note Date: 12/19/22 77 year old M with PMH of COPD, CAD, DM, HTN, HLD, paroxysmal AFib on coumadin presents to the ED for altered mentation and complaints of abdominal pain. Recently treated for cellulitis possibly with Bactrim for lower extremity cellulitis. Reports poor appetite and oral intake. Quezada catheter inserted in the ED, produced 200 cc of urine, no further output since. In the ED, he underwent extensive evaluation. Tlow 94.6F, bradycardic to 50s and well as tachycardic to 120s. CBC WBC count 11.2, Hg 10.5. INR 4.6. CMP Na 136, K 8.8, bicarb 9, BUN 132, Cr 9.45, glucose 247. Lactic acid 6.4. Mag 2.7. Amylase 182. Lipase 485. UA negative for LE or nitrite. EKG sinus bradycardia, wide complex rhythm, RBBB CT AP showed no acute abdominal process, no obstructive uropathy. CXR showed no acute process and cardiomegaly. Patient was admitted to ICU for further management. He was given Ca gluconate, albuterol neb, insulin with D50, Lokelma, sodium bicarbonate for hyperkalemia. He was given IV vitamin K for coumadin reversal. Vascular surgery consulted for emergent hemodialysis access. 12/19 Patient was seen and examined. Lethargic and slow to respond. Underwent emergent hemodialysis on admission. Currently on D5W 3 amps of sodium bicarb running at 100 cc/hr. INR 5.4. CMP bicarb 19, BUN 85, Cr 6.69, glu 163, Ca 8.1, albumin 3. Phos 8. Lipase 430. CXR this morning shows mild pulmonary venous congestion. Renal US negative for obstructive disease. General: non toxic, no distress, appears at stated age Derm: warm, dry Head: atraumatic, normocephalic, symmetric Eyes: EOMI, no lid lag, anicteric sclera Mouth: no lip lesion, mucus membranes moist Cardiovascular: S1S2 reg, no murmur Lungs: Coarse BS bilateral, no rhonchi, no rales , no accessory muscle use Abdominal: soft, nontender to palpation, no guarding, no appreciable organomegaly Ext: no gross muscle atrophy, no edema, no contractures Neuro: no focal neuro deficits Psych: Alert, oriented, appropriate affect Acute kidney injury Anion gap metabolic acidosis Acute metabolic encephalopathy Supratherapeutic INR Hypocalcemia Hyperphosphatemia Elevated lipase Resolved: Hyperkalemia Chronic conditions: COPD, CAD, DM, HTN, HLD, paroxysmal AFib Based on my assessment of this patient, this patient meets a high complexity level of care. Patient has an acute diagnosis of acute renal failure resulting in severe metaboic acidosis and hyperkalemia with EKG changes that poses a threat to life or bodily function. Acute kidney injury: Multifactorial. Dehydration. DEBRA inhibitor. Diuretic. Recent Bacrim use? Currently with temporary HD catheter. Hold Lisinopril and Lasix. Nephrology on board. Continue sodium bicarbonate infusion. Anion gap metabolic acidosis: Likely related to above. Acute metabolic encephalopathy: Likely related to above. Supratherapeutic INR: Given Vit K IV 5mg today. Hold coumadin. Hypocalcemia Hyperphosphatemia Elevated lipase Resolved: Hyperkalemia CODE STATUS: FULL CODE DVT Prophylaxis: SCDs GI Prophylaxis: Protonix 40 mg IV QD. I have reviewed the following workforce consultant notes: Pulmonology consult. I have reviewed the results of the following tests: Coag panel, CMP, Renal US, CXR. I have ordered the following tests: BMP and Coag panel ordered for tomorrow morning. I have discussed the care of this patient with the following independent historian: I have independently interpreted the following test below: CXR as above. I have discussed the management of this patient with the following physician: Objective - Vital Signs Vital signs: Vital Signs Temp 97.4 F L 12/19/22 04:00 Pulse 80 12/19/22 07:58 Resp 10 L 12/19/22 07:00 BP 152/64 12/19/22 07:00 Pulse Ox 93 L 12/19/22 07:49 FiO2 Intake & Output 12/18/22 12/19/22 12/19/22 18:59 06:59 18:59 Intake Total 2600 Output Total 700 Balance 1900 Weight 90.718 kg 98.5 kg Intake: IV 2100 Calcium Gluconate in NaCl 100 1 gm In Saline 1 100ml. bag @ 100 mls/hr IVPB ONCE ONE Rx#:[id number] Dextrose 5% in Water 1, 1000 000 ml @ 100 mls/hr IV . [id number] PRASANNA with Sodium Bicarb (1 Meq/ml) 150 ml Rx#:[id number] Sodium Chloride 0.9% 1, 1000 000 ml @ 999 mls/hr IV . Q1H1M STA Rx#:[id number] Hemodialysis 500 Output: Urine 200 Uretheral (Quezada) 150 Hemodialysis 500 Other: Voiding Method Indwelling Catheter - Labs CBC & Chem 7: 12/18/22 17:11 12/19/22 05:21 Labs: Abnormal Lab Results - Last 24 Hours (Table) 12/18/22 12/18/22 12/18/22 Range/Units 17:11 17:11 17:11 WBC 11.2 H (3.8-10.6) k/uL RBC 3.63 L (4.30-5.90) m/uL Hgb 10.5 L (13.0-17.5) gm/dL Hct 32.7 L (39.0-53.0) % Neutrophils # 10.2 H (1.3-7.7) k/uL Lymphocytes # 0.6 L (1.0-4.8) k/uL PT (10.0-12.5) sec INR (<1.2) APTT (22.0-30.0) sec Sodium 136 L (137-145) mmol/L Potassium 8.8 H* (3.5-5.1) mmol/L Chloride (98-107) mmol/L Carbon Dioxide 9 L* (22-30) mmol/L BUN 132 H* (9-20) mg/dL Creatinine 9.45 H* (0.66-1.25) mg/dL Glucose 247 H (74-99) mg/dL POC Glucose (mg/dL) (70-110) mg/dL Plasma Lactic Acid Kenny 6.4 H* (0.7-2.0) mmol/L Calcium (8.4-10.2) mg/dL Phosphorus (2.5-4.5) mg/dL Magnesium (1.6-2.3) mg/dL Total Protein (6.3-8.2) g/dL Albumin (3.5-5.0) g/dL Amylase 182 H (30-110) U/L Lipase 485 H (23-300) U/L Urine Protein (Negative) 12/18/22 12/18/22 12/18/22 Range/Units 20:45 21:21 21:23 WBC (3.8-10.6) k/uL RBC (4.30-5.90) m/uL Hgb (13.0-17.5) gm/dL Hct (39.0-53.0) % Neutrophils # (1.3-7.7) k/uL Lymphocytes # (1.0-4.8) k/uL PT (10.0-12.5) sec INR (<1.2) APTT (22.0-30.0) sec Sodium (137-145) mmol/L Potassium (3.5-5.1) mmol/L Chloride (98-107) mmol/L Carbon Dioxide (22-30) mmol/L BUN (9-20) mg/dL Creatinine (0.66-1.25) mg/dL Glucose (74-99) mg/dL POC Glucose (mg/dL) 223 H (70-110) mg/dL Plasma Lactic Acid Kenny 5.3 H* (0.7-2.0) mmol/L Calcium (8.4-10.2) mg/dL Phosphorus (2.5-4.5) mg/dL Magnesium (1.6-2.3) mg/dL Total Protein (6.3-8.2) g/dL Albumin (3.5-5.0) g/dL Amylase (30-110) U/L Lipase (23-300) U/L Urine Protein Trace H (Negative) 12/18/22 12/18/22 12/18/22 Range/Units 21:23 22:04 22:22 WBC (3.8-10.6) k/uL RBC (4.30-5.90) m/uL Hgb (13.0-17.5) gm/dL Hct (39.0-53.0) % Neutrophils # (1.3-7.7) k/uL Lymphocytes # (1.0-4.8) k/uL PT 44.8 H (10.0-12.5) sec INR 4.6 H (<1.2) APTT 36.4 H (22.0-30.0) sec Sodium (137-145) mmol/L Potassium 7.6 H* (3.5-5.1) mmol/L Chloride 110 H (98-107) mmol/L Carbon Dioxide 9 L* (22-30) mmol/L BUN 117 H* (9-20) mg/dL Creatinine 8.88 H* (0.66-1.25) mg/dL Glucose 227 H (74-99) mg/dL POC Glucose (mg/dL) 244 H (70-110) mg/dL Plasma Lactic Acid Kenny (0.7-2.0) mmol/L Calcium (8.4-10.2) mg/dL Phosphorus (2.5-4.5) mg/dL Magnesium 2.7 H (1.6-2.3) mg/dL Total Protein (6.3-8.2) g/dL Albumin (3.5-5.0) g/dL Amylase (30-110) U/L Lipase (23-300) U/L Urine Protein (Negative) 12/19/22 12/19/22 12/19/22 Range/Units 02:18 05:21 05:21 WBC (3.8-10.6) k/uL RBC (4.30-5.90) m/uL Hgb (13.0-17.5) gm/dL Hct (39.0-53.0) % Neutrophils # (1.3-7.7) k/uL Lymphocytes # (1.0-4.8) k/uL PT 52.9 H (10.0-12.5) sec INR 5.4 H* (<1.2) APTT (22.0-30.0) sec Sodium (137-145) mmol/L Potassium (3.5-5.1) mmol/L Chloride (98-107) mmol/L Carbon Dioxide (22-30) mmol/L BUN (9-20) mg/dL Creatinine (0.66-1.25) mg/dL Glucose (74-99) mg/dL POC Glucose (mg/dL) (70-110) mg/dL Plasma Lactic Acid Kenny 2.7 H* (0.7-2.0) mmol/L Calcium (8.4-10.2) mg/dL Phosphorus (2.5-4.5) mg/dL Magnesium (1.6-2.3) mg/dL Total Protein (6.3-8.2) g/dL Albumin (3.5-5.0) g/dL Amylase (30-110) U/L Lipase 430 H (23-300) U/L Urine Protein (Negative) 12/19/22 12/19/22 12/19/22 Range/Units 05:21 05:21 07:11 WBC (3.8-10.6) k/uL RBC (4.30-5.90) m/uL Hgb (13.0-17.5) gm/dL Hct (39.0-53.0) % Neutrophils # (1.3-7.7) k/uL Lymphocytes # (1.0-4.8) k/uL PT (10.0-12.5) sec INR (<1.2) APTT (22.0-30.0) sec Sodium (137-145) mmol/L Potassium (3.5-5.1) mmol/L Chloride (98-107) mmol/L Carbon Dioxide 19 L (22-30) mmol/L BUN 85 H (9-20) mg/dL Creatinine 6.69 H (0.66-1.25) mg/dL Glucose 163 H (74-99) mg/dL POC Glucose (mg/dL) 139 H (70-110) mg/dL Plasma Lactic Acid Kenny 2.9 H* (0.7-2.0) mmol/L Calcium 8.1 L (8.4-10.2) mg/dL Phosphorus 8.0 H (2.5-4.5) mg/dL Magnesium (1.6-2.3) mg/dL Total Protein 5.5 L (6.3-8.2) g/dL Albumin 3.0 L (3.5-5.0) g/dL Amylase (30-110) U/L Lipase (23-300) U/L Urine Protein (Negative) 12/19/22 Range/Units 08:23 WBC (3.8-10.6) k/uL RBC (4.30-5.90) m/uL Hgb (13.0-17.5) gm/dL Hct (39.0-53.0) % Neutrophils # (1.3-7.7) k/uL Lymphocytes # (1.0-4.8) k/uL PT (10.0-12.5) sec INR (<1.2) APTT (22.0-30.0) sec Sodium (137-145) mmol/L Potassium (3.5-5.1) mmol/L Chloride (98-107) mmol/L Carbon Dioxide (22-30) mmol/L BUN (9-20) mg/dL Creatinine (0.66-1.25) mg/dL Glucose (74-99) mg/dL POC Glucose (mg/dL) (70-110) mg/dL Plasma Lactic Acid Kenny 2.1 H* (0.7-2.0) mmol/L Calcium (8.4-10.2) mg/dL Phosphorus (2.5-4.5) mg/dL Magnesium (1.6-2.3) mg/dL Total Protein (6.3-8.2) g/dL Albumin (3.5-5.0) g/dL Amylase (30-110) U/L Lipase (23-300) U/L Urine Protein (Negative)
--- NOTE | 2022-12-19 11:24 | P.CONS ---
History of Present Illness - Reason for Consult Consult date: 12/19/22 GI bleed Requesting physician: Jessica Dias - Chief Complaint Altered mental status changes, abdominal pain - History of Present Illness This is a 77-year-old male with a past medical history including COPD, diabetes mellitus, hyperlipidemia, hypertension, myocardial infarction, coronary artery disease status post stenting on warfarin, and remote history of alcohol abuse who presented to the emergency department with confusion, weakness, and complaints of abdominal pain. Patient was admitted to the ICU with acute kidney injury requiring hemodialysis, supratherapeutic INR of 5.4, lactic acidosis and altered mental status changes. Patient currently is awake and alert, seems somewhat confused. States he has no abdominal pain at this time. States he was having abdominal pain for about 2 days prior to coming into the emergency department. He denied any nausea or vomiting. Nursing reports he has not had a bowel movement since being hospitalized. They do report that the stated yesterday he was having some dark stool and therefore gastroenterology was consulted for GI bleed. Again patient denies any black stools nursing as stating he has not had any bowel movements. He had a Quezada catheter placed this morning with bright red bloody urine. He did have mild elevation of his lipase is well at 430. Patient is a poor historian at this time. Warfarin is currently on hold and patient being administered vitamin K. He had a CT of the abdomen and pelvis showing no acute findings. Admitting Labs WBC 11.2 hemoglobin 10.5 hematocrit 32.7 platelet count 317,000 INR 4.6 sodium 139 potassium 7.6 BUN 117 creatinine 8.88 glucose 227 lactic acid 5.3 magnesium 2.7 total bilirubin 0.4 AST 27, ALC 23 alkaline phosphatase 52 amylase 182 lipase 485 Review of Systems REVIEW OF SYSTEMS: Limited due to altered mental status changes CARDIOPULMONARY: No chest pain or shortness of breath. Gastrointestinal: No abdominal pain currently, had abdominal pain for last 2 days. No nausea or vomiting. No hematemesis, coffee-ground emesis. No rectal bleeding, or melena. GENITOURINARY: No dysuria or hematuria. MUSCULOSKELETAL: Reports normal range of motion. SKIN: No rashes. No jaundice. ENDOCRINE: No chills, fevers. No excessive weight gain or loss. No polydipsia or polyuria. PSYCHIATRIC: Unremarkable. NEUROLOGY: Confusion. Denies dizziness, headache. ENT: Vision unremarkable. CONSTITUTIONAL: No recent weight loss. No fever, chills, night sweats. Past Medical History Past Medical History: COPD, Diabetes Mellitus, Hyperlipidemia, Hypertension, Myocardial Infarction ([place]) Additional Past Medical History / Comment(s): Recent sore R great toe-healed, gout. Last Myocardial Infarction Date:: 1991 History of Any Multi-Drug Resistant Organisms: None Reported Past Surgical History: Heart Catheterization, Heart Catheterization With Stent Additional Past Surgical History / Comment(s): 01/18/16 cardiac stents to RCA x2. Other surgical hx: balloon angiioplasty 1991, nathan cataracts Past Anesthesia/Blood Transfusion Reactions: No Reported Reaction Date of Last Stent Placement:: 01/19/16 Past Psychological History: No Psychological Hx Reported Smoking Status: Never smoker Past Alcohol Use History: None Reported Past Drug Use History: None Reported - Past Family History Mother Family Medical History: No Reported History Additional Family Medical History / Comment(s): Mother is healthy and is 89yrs old. Father Family Medical History: Cancer Additional Family Medical History / Comment(s): "blood cancer". at the age of 73 yrs. Medications and Allergies Home Medications Medication Instructions Recorded Confirmed Type Atorvastatin [Lipitor] 80 mg PO HS 01/14/16 12/18/22 History Loratadine 10 mg PO DAILY 01/14/16 12/18/22 History amLODIPine BESYLATE [Norvasc] 5 mg PO BID 01/14/16 12/18/22 History busPIRone HCL 15 mg PO DAILY 01/14/16 12/18/22 History cloNIDine HCL [Catapres] 0.1 mg PO BID 01/14/16 12/18/22 History metFORMIN HCL [Glucophage] 1,000 mg PO BID #0 01/20/16 12/18/22 Rx Ascorbic Acid [Vitamin C] 500 mg PO DAILY 12/18/22 12/18/22 History Cholecalciferol (Vitamin D3) 75 mcg PO DAILY 12/18/22 12/18/22 History [Vitamin D3 (3000 Iu)] Donepezil [Aricept] 10 mg PO HS 12/18/22 12/18/22 History Furosemide [Lasix] 20 mg PO DAILY 12/18/22 12/18/22 History Insulin Glargine,Hum.rec.anlog 30 units SQ DAILY 12/18/22 12/18/22 History [Lantus Solostar Pen] Metoprolol Succinate (ER) [Toprol 50 mg PO DAILY 12/18/22 12/18/22 History Xl] Tart Murphy Extract 1 tab PO DAILY 12/18/22 12/18/22 History Warfarin Sodium [Jantoven] 2 mg PO MOWEFR 12/18/22 12/18/22 History Warfarin Sodium [Jantoven] 4 mg PO SUTUTHSA 12/18/22 12/18/22 History Zinc Gluconate [Zinc] 50 mg PO DAILY 12/18/22 12/18/22 History glipiZIDE XL [Glucotrol Xl] 10 mg PO BID 12/18/22 12/18/22 History hydrALAZINE HCL [Apresoline] 25 mg PO BID 12/18/22 12/18/22 History lisinopriL [Zestril] 20 mg PO BID 12/18/22 12/18/22 History Allergies Allergy/AdvReac Type Severity Reaction Status Date / Time No Known Allergies Allergy Verified 12/18/22 17:41 Physical Exam Vitals: Vital Signs Temp Pulse Pulse Resp BP BP Pulse Ox 12/19/22 10:00 60 13 116/47 98 12/19/22 09:30 86 14 140/57 94 L 12/19/22 09:00 84 14 152/57 95 12/19/22 08:30 79 14 116/62 96 12/19/22 08:00 97.5 F L 78 16 125/69 92 L 12/19/22 07:58 80 12/19/22 07:49 80 93 L 12/19/22 07:30 82 14 118/72 95 12/19/22 07:00 91 10 L 152/64 95 12/19/22 06:30 87 12 149/59 96 12/19/22 06:00 83 14 149/63 94 L 12/19/22 05:30 83 14 137/71 94 L 12/19/22 05:10 83 15 153/70 94 L 12/19/22 05:00 87 14 137/127 96 12/19/22 04:50 85 15 137/127 93 L 12/19/22 04:40 92 12 120/56 93 L 12/19/22 04:30 90 16 137/58 90 L 12/19/22 04:20 89 10 L 137/58 89 L 12/19/22 04:10 93 15 140/61 87 L 12/19/22 04:00 97.4 F L 93 86 18 154/57 88 L 12/19/22 03:50 93 11 L 154/57 90 L 12/19/22 03:40 89 12 141/56 12/19/22 03:30 90 16 150/64 12/19/22 03:27 97.3 F L 86 16 157/64 12/19/22 03:20 89 19 150/64 12/19/22 03:10 87 15 151/64 12/19/22 03:00 87 15 129/70 12/19/22 02:50 87 14 129/70 12/19/22 02:40 87 13 138/72 12/19/22 02:30 89 12 122/61 12/19/22 02:20 81 13 122/61 12/19/22 02:10 86 13 137/54 12/19/22 02:00 83 12 121/61 97 12/19/22 01:50 88 13 121/61 12/19/22 01:40 86 13 126/52 12/19/22 01:30 87 15 137/58 12/19/22 01:20 80 14 137/58 12/19/22 01:10 84 15 129/60 12/19/22 01:00 81 17 97/81 12/19/22 00:50 77 17 97/81 12/19/22 00:40 73 166 H 106/74 12/19/22 00:30 74 15 133/98 12/19/22 00:20 71 19 133/98 12/19/22 00:10 71 19 133/98 12/19/22 00:00 97.8 F 69 17 122/48 12/18/22 23:54 68 18 122/48 12/18/22 23:50 64 18 122/48 12/18/22 23:40 65 18 122/48 12/18/22 23:30 70 17 127/101 12/18/22 23:20 77 18 127/101 12/18/22 23:10 72 16 127/101 12/18/22 23:00 73 17 141/102 12/18/22 22:50 76 18 141/102 12/18/22 22:40 79 17 141/102 12/18/22 22:30 76 16 120/72 12/18/22 22:20 18 120/72 12/18/22 22:10 77 18 133/85 92 L 12/18/22 22:03 18 12/18/22 21:45 77 12/18/22 21:33 98.7 F 77 18 111/75 99 12/18/22 21:29 78 12/18/22 21:15 72 16 154/81 97 12/18/22 20:34 98.2 F 80 18 130/68 97 12/18/22 19:47 90 18 127/106 95 12/18/22 19:40 94.6 F L 124 H 19 137/63 97 12/18/22 17:06 97.6 F 54 L 18 134/63 97 Intake and Output 12/18/22 12/19/22 12/19/22 22:59 06:59 14:59 Intake Total 1200 1400 350 Output Total 150 550 70 Balance 1050 850 280 Intake: IV 1200 900 350 Calcium Gluconate in NaCl 100 1 gm In Saline 1 100ml. bag @ 100 mls/hr IVPB ONCE ONE Rx#:[id number] Dextrose 5% in Water 1, 100 900 300 000 ml @ 100 mls/hr IV . [id number] PRASANNA with Sodium Bicarb (1 Meq/ml) 150 ml Rx#:[id number] Phytonadione 5 mg In 50 Sodium Chloride 0.9% 50 ml @ 100 mls/hr IVPB ONCE STA Rx#:[id number] Sodium Chloride 0.9% 1, 1000 000 ml @ 999 mls/hr IV . Q1H1M STA Rx#:[id number] Hemodialysis 500 Output: Urine 150 50 70 Uretheral (Quezada) 150 0 Hemodialysis 500 Other: Voiding Method Indwelling Catheter Indwelling Catheter Weight 98.5 kg 98.5 kg 98.5 kg General appearance: The patient is alert, oriented, appears in no acute distress. HET: Head is normocephalic and atraumatic. Conjunctiva pink. Sclera anicteric. Neck: Supple without lymphadenopathy. Trachea midline. Heart: Regular. Lungs: Equal expansion, normal respiratory effort. Abdomen: Soft, obese, nontender, nondistended with bowel sounds. No guarding or rigidity. Skin: No rashes. No jaundice. Extremities: Normal skin color and turgor. No pedal edema. Neurological: No focal deficits. Alert and oriented x3. Results CBC & Chem 7: 12/18/22 17:11 12/19/22 11:55 Labs: Abnormal Lab Results - Last 24 Hours (Table) 12/18/22 12/18/22 12/18/22 Range/Units 17:11 17:11 17:11 WBC 11.2 H (3.8-10.6) k/uL RBC 3.63 L (4.30-5.90) m/uL Hgb 10.5 L (13.0-17.5) gm/dL Hct 32.7 L (39.0-53.0) % Neutrophils # 10.2 H (1.3-7.7) k/uL Lymphocytes # 0.6 L (1.0-4.8) k/uL PT (10.0-12.5) sec INR (<1.2) APTT (22.0-30.0) sec Sodium 136 L (137-145) mmol/L Potassium 8.8 H* (3.5-5.1) mmol/L Chloride (98-107) mmol/L Carbon Dioxide 9 L* (22-30) mmol/L BUN 132 H* (9-20) mg/dL Creatinine 9.45 H* (0.66-1.25) mg/dL Glucose 247 H (74-99) mg/dL POC Glucose (mg/dL) (70-110) mg/dL Plasma Lactic Acid Kenny 6.4 H* (0.7-2.0) mmol/L Calcium (8.4-10.2) mg/dL Phosphorus (2.5-4.5) mg/dL Magnesium (1.6-2.3) mg/dL Total Protein (6.3-8.2) g/dL Albumin (3.5-5.0) g/dL Amylase 182 H (30-110) U/L Lipase 485 H (23-300) U/L Urine Protein (Negative) 12/18/22 12/18/22 12/18/22 Range/Units 20:45 21:21 21:23 WBC (3.8-10.6) k/uL RBC (4.30-5.90) m/uL Hgb (13.0-17.5) gm/dL Hct (39.0-53.0) % Neutrophils # (1.3-7.7) k/uL Lymphocytes # (1.0-4.8) k/uL PT (10.0-12.5) sec INR (<1.2) APTT (22.0-30.0) sec Sodium (137-145) mmol/L Potassium (3.5-5.1) mmol/L Chloride (98-107) mmol/L Carbon Dioxide (22-30) mmol/L BUN (9-20) mg/dL Creatinine (0.66-1.25) mg/dL Glucose (74-99) mg/dL POC Glucose (mg/dL) 223 H (70-110) mg/dL Plasma Lactic Acid Kenny 5.3 H* (0.7-2.0) mmol/L Calcium (8.4-10.2) mg/dL Phosphorus (2.5-4.5) mg/dL Magnesium (1.6-2.3) mg/dL Total Protein (6.3-8.2) g/dL Albumin (3.5-5.0) g/dL Amylase (30-110) U/L Lipase (23-300) U/L Urine Protein Trace H (Negative) 12/18/22 12/18/22 12/18/22 Range/Units 21:23 22:04 22:22 WBC (3.8-10.6) k/uL RBC (4.30-5.90) m/uL Hgb (13.0-17.5) gm/dL Hct (39.0-53.0) % Neutrophils # (1.3-7.7) k/uL Lymphocytes # (1.0-4.8) k/uL PT 44.8 H (10.0-12.5) sec INR 4.6 H (<1.2) APTT 36.4 H (22.0-30.0) sec Sodium (137-145) mmol/L Potassium 7.6 H* (3.5-5.1) mmol/L Chloride 110 H (98-107) mmol/L Carbon Dioxide 9 L* (22-30) mmol/L BUN 117 H* (9-20) mg/dL Creatinine 8.88 H* (0.66-1.25) mg/dL Glucose 227 H (74-99) mg/dL POC Glucose (mg/dL) 244 H (70-110) mg/dL Plasma Lactic Acid Kenny (0.7-2.0) mmol/L Calcium (8.4-10.2) mg/dL Phosphorus (2.5-4.5) mg/dL Magnesium 2.7 H (1.6-2.3) mg/dL Total Protein (6.3-8.2) g/dL Albumin (3.5-5.0) g/dL Amylase (30-110) U/L Lipase (23-300) U/L Urine Protein (Negative) 12/19/22 12/19/22 12/19/22 Range/Units 02:18 05:21 05:21 WBC (3.8-10.6) k/uL RBC (4.30-5.90) m/uL Hgb (13.0-17.5) gm/dL Hct (39.0-53.0) % Neutrophils # (1.3-7.7) k/uL Lymphocytes # (1.0-4.8) k/uL PT 52.9 H (10.0-12.5) sec INR 5.4 H* (<1.2) APTT (22.0-30.0) sec Sodium (137-145) mmol/L Potassium (3.5-5.1) mmol/L Chloride (98-107) mmol/L Carbon Dioxide (22-30) mmol/L BUN (9-20) mg/dL Creatinine (0.66-1.25) mg/dL Glucose (74-99) mg/dL POC Glucose (mg/dL) (70-110) mg/dL Plasma Lactic Acid Kenny 2.7 H* (0.7-2.0) mmol/L Calcium (8.4-10.2) mg/dL Phosphorus (2.5-4.5) mg/dL Magnesium (1.6-2.3) mg/dL Total Protein (6.3-8.2) g/dL Albumin (3.5-5.0) g/dL Amylase (30-110) U/L Lipase 430 H (23-300) U/L Urine Protein (Negative) 12/19/22 12/19/22 12/19/22 Range/Units 05:21 05:21 07:11 WBC (3.8-10.6) k/uL RBC (4.30-5.90) m/uL Hgb (13.0-17.5) gm/dL Hct (39.0-53.0) % Neutrophils # (1.3-7.7) k/uL Lymphocytes # (1.0-4.8) k/uL PT (10.0-12.5) sec INR (<1.2) APTT (22.0-30.0) sec Sodium (137-145) mmol/L Potassium (3.5-5.1) mmol/L Chloride (98-107) mmol/L Carbon Dioxide 19 L (22-30) mmol/L BUN 85 H (9-20) mg/dL Creatinine 6.69 H (0.66-1.25) mg/dL Glucose 163 H (74-99) mg/dL POC Glucose (mg/dL) 139 H (70-110) mg/dL Plasma Lactic Acid Kenny 2.9 H* (0.7-2.0) mmol/L Calcium 8.1 L (8.4-10.2) mg/dL Phosphorus 8.0 H (2.5-4.5) mg/dL Magnesium (1.6-2.3) mg/dL Total Protein 5.5 L (6.3-8.2) g/dL Albumin 3.0 L (3.5-5.0) g/dL Amylase (30-110) U/L Lipase (23-300) U/L Urine Protein (Negative) 12/19/22 Range/Units 08:23 WBC (3.8-10.6) k/uL RBC (4.30-5.90) m/uL Hgb (13.0-17.5) gm/dL Hct (39.0-53.0) % Neutrophils # (1.3-7.7) k/uL Lymphocytes # (1.0-4.8) k/uL PT (10.0-12.5) sec INR (<1.2) APTT (22.0-30.0) sec Sodium (137-145) mmol/L Potassium (3.5-5.1) mmol/L Chloride (98-107) mmol/L Carbon Dioxide (22-30) mmol/L BUN (9-20) mg/dL Creatinine (0.66-1.25) mg/dL Glucose (74-99) mg/dL POC Glucose (mg/dL) (70-110) mg/dL Plasma Lactic Acid Kenny 2.1 H* (0.7-2.0) mmol/L Calcium (8.4-10.2) mg/dL Phosphorus (2.5-4.5) mg/dL Magnesium (1.6-2.3) mg/dL Total Protein (6.3-8.2) g/dL Albumin (3.5-5.0) g/dL Amylase (30-110) U/L Lipase (23-300) U/L Urine Protein (Negative) Comments: CT abdomen and pelvis without contrast reports no evidence for acute abdominal process to explain the patient's pain. No obstructive uropathy. The colon and small bowel are relatively decompressed. Ultrasound kidneys/renal and bladder. No hydronephrosis or nephrolithiasis Chest x-ray. Coarsened interstitium may be the basis of chronic lung disease. Mild venous congestion or interstitial pneumonitis in the differential diagnosis. 1 cm left upper lobe pulmonary nodule. Assessment and Plan (1) Abdominal pain Narrative/Plan: 77-year-old male presented to the emergency department yesterday with family for concerns for confusion, weakness, and complaints of abdominal pain for the last 2-3 days duration. Patient was noted to be in acute renal failure, lactic acidosis and supratherapeutic INR. Patient on warfarin for coronary artery disease which is currently on hold and being treated with vitamin K. Reportedly the had reported patient was having dark stool at home however patient denies any blood in his stool or black stool. He also states abdominal pain has resolved. He had a CT abdomen and pelvis without any acute findings. He did have mild elevation in his amylase and lipase, 182 and 485 respectively. Unclear if he has a history of pancreatitis in the past. Patient is somewhat of a poor historian. He does admit to significant history of alcohol abuse but states he quit several years ago. Unclear etiology at this time of abdominal pain could've been mild uncomplicated pancreatitis however pain has resolved. Nursing is reporting no signs of GI blood loss. Hemoglobin is stable. I recommend treating supratherapeutic INR. Patient is also having gross hematuria. We will continue to monitor at this time, recommend protonic 40 mg daily. For GI prophylaxis. No plans on endoscopic evaluation at this time. Current Visit: Yes Status: Acute Code(s): R10.9 - UNSPECIFIED ABDOMINAL PAIN SNOMED Code(s): 29597512 (2) Melena Narrative/Plan: states patient had a maroon colored stool prior to coming to the hospital. And about 4 days prior patient had some bright red blood noted in his stool. No previous history of EGD or colonoscopy. No further bleeding noted since patient has been here to the hospital. Will plan for outpatient follow-up to schedule endoscopic evaluation unless patient continues to have blood in his stool. Current Visit: Yes Status: Acute Code(s): K92.1 - MELENA SNOMED Code(s): 9375948 (3) Supratherapeutic INR Current Visit: Yes Status: Acute Code(s): R79.1 - ABNORMAL COAGULATION PROFILE SNOMED Code(s): 175539836 (4) ESDRAS (acute kidney injury) Current Visit: Yes Status: Acute Code(s): N17.9 - ACUTE KIDNEY FAILURE, UNSPECIFIED SNOMED Code(s): 43279983 (5) Hyperkalemia Current Visit: Yes Status: Acute Code(s): E87.5 - HYPERKALEMIA SNOMED Code(s): 84345835 (6) Renal failure Current Visit: Yes Status: Acute Code(s): N19 - UNSPECIFIED KIDNEY FAILURE SNOMED Code(s): 21842435 (7) CAD (coronary artery disease) Current Visit: No Status: Acute Code(s): I25.10 - ATHSCL HEART DISEASE OF [place] CORONARY ARTERY W/O ANG PCTRS SNOMED Code(s): 05006306 (8) Diabetes Current Visit: No Status: Acute Code(s): E11.9 - TYPE 2 DIABETES MELLITUS WITHOUT COMPLICATIONS SNOMED Code(s): 03108968 (9) Gross hematuria Current Visit: Yes Status: Acute Code(s): R31.0 - GROSS HEMATURIA SNOMED Code(s): 952692250 Plan: 1. Continue symptomatic and supportive care 2. Continue clear liquid diet 3. Protonix 40 mg daily for GI prophylaxis 4. Monitor for symptoms of GI bleed 5. Agree with vitamin K treat supratherapeutic INR 6. Hold anticoagulation for now 7. Daily CBC, CMP 8. Will order ammonia level 9. No plans on endoscopic evaluation at this time. Recommend outpatient follow-up in endoscopic evaluation. Thank you for this consultation, we will continue to follow. Dr. Radha Dickey I agree with the dictator's note, documented as a scribe by Blessing Bernal.
[2022-12-19 11:45] LABS: Glucose,Whole Blood 81 mg/dL (70-110)
[2022-12-19 12:23] LABS: INR 3.4 (<1.2); Prothrombin Time 33.6 sec (10.0-12.5)
[2022-12-19 12:44] LABS: African American GFR (CKD) 8 (>60 ml/min/1.73 sqM); Anion Gap 14 mmol/L; Blood Urea Nitrogen 84 mg/dL (9-20); Carbon Dioxide 23 mmol/L (22-30); Chloride 102 mmol/L (98-107); Glucose 67 mg/dL (74-99); Non-African American GFR(CKD) 7 (>60 ml/min/1.73 sqM); Potassium 4.7 mmol/L (3.5-5.1); Sodium 139 mmol/L (137-145)
--- NOTE | 2022-12-19 13:27 | P.NPCON ---
History of Present Illness - Reason for Consult acute renal failure - History of Present Illness Reason for consultation: Acute kidney injury next History of present illness: Patient is a 77-year-old male seen in renal consultation for acute kidney injury. Patient's creatinine in December 2021 was 1.29 and was elevated at 9.45 this admission. Potassium was elevated at 8.8. Patient came to the hospital due to mild abdominal discomfort and generalized weakness. According to the he hasn't been eating and drinking much for the last 3-4 days. Patient was taking lisinopril and Lasix at home prior to admission. Additionally he was also on metformin and other diabetic meds. Patient has long-standing history of diabetes. He also has history of coronary artery disease with prior stenting. Patient has been oliguric with urine output now about 10-30 mL an hour. He did undergo emergent hemodialysis early this morning for hyperkalemia. Potassium level this morning is 4.7. He's on a bicarb drip. Acidosis is improved with bicarb level up to 23. He is currently on a nasal cannula. Denies use of nonsteroidals. Denies chest pain. Vital signs are stable. General: No acute distress. HEENT: Head exam is unremarkable. On nasal cannula. LUNGS: No audible rhonchi or wheezes. HEART: Rate and Rhythm are regular. ABDOMEN: Nontender. Obese. EXTREMITITES: No edema. Lower extremity wounds noted. Past Medical History Past Medical History: COPD, Diabetes Mellitus, Hyperlipidemia, Hypertension, Myocardial Infarction (AR) Additional Past Medical History / Comment(s): Recent sore R great toe-healed, gout. Last Myocardial Infarction Date:: 1991 History of Any Multi-Drug Resistant Organisms: None Reported Past Surgical History: Heart Catheterization, Heart Catheterization With Stent Additional Past Surgical History / Comment(s): 01/18/16 cardiac stents to RCA x2. Other surgical hx: balloon angiioplasty 1991, nathan cataracts Past Anesthesia/Blood Transfusion Reactions: No Reported Reaction Date of Last Stent Placement:: 01/19/16 Past Psychological History: No Psychological Hx Reported Smoking Status: Never smoker Past Alcohol Use History: None Reported Past Drug Use History: None Reported - Past Family History Mother Family Medical History: No Reported History Additional Family Medical History / Comment(s): Mother is healthy and is 89yrs old. Father Family Medical History: Cancer Additional Family Medical History / Comment(s): "blood cancer". at the age of 73 yrs. Medications and Allergies Home Medications Medication Instructions Recorded Confirmed Type Atorvastatin [Lipitor] 80 mg PO HS 01/14/16 12/18/22 History Loratadine 10 mg PO DAILY 01/14/16 12/18/22 History amLODIPine BESYLATE [Norvasc] 5 mg PO BID 01/14/16 12/18/22 History busPIRone HCL 15 mg PO DAILY 01/14/16 12/18/22 History cloNIDine HCL [Catapres] 0.1 mg PO BID 01/14/16 12/18/22 History metFORMIN HCL [Glucophage] 1,000 mg PO BID #0 01/20/16 12/18/22 Rx Ascorbic Acid [Vitamin C] 500 mg PO DAILY 12/18/22 12/18/22 History Cholecalciferol (Vitamin D3) 75 mcg PO DAILY 12/18/22 12/18/22 History [Vitamin D3 (3000 Iu)] Donepezil [Aricept] 10 mg PO HS 12/18/22 12/18/22 History Furosemide [Lasix] 20 mg PO DAILY 12/18/22 12/18/22 History Insulin Glargine,Hum.rec.anlog 30 units SQ DAILY 12/18/22 12/18/22 History [Lantus Solostar Pen] Metoprolol Succinate (ER) [Toprol 50 mg PO DAILY 12/18/22 12/18/22 History Xl] Tart Murphy Extract 1 tab PO DAILY 12/18/22 12/18/22 History Warfarin Sodium [Jantoven] 2 mg PO MOWEFR 12/18/22 12/18/22 History Warfarin Sodium [Jantoven] 4 mg PO SUTUTHSA 12/18/22 12/18/22 History Zinc Gluconate [Zinc] 50 mg PO DAILY 12/18/22 12/18/22 History glipiZIDE XL [Glucotrol Xl] 10 mg PO BID 12/18/22 12/18/22 History hydrALAZINE HCL [Apresoline] 25 mg PO BID 12/18/22 12/18/22 History lisinopriL [Zestril] 20 mg PO BID 12/18/22 12/18/22 History Allergies Allergy/AdvReac Type Severity Reaction Status Date / Time No Known Allergies Allergy Verified 12/18/22 17:41 Physical Exam Vitals: Vital Signs Temp Pulse Pulse Resp BP BP Pulse Ox 12/19/22 12:00 97.4 F L 73 13 136/66 96 12/19/22 11:30 65 13 123/51 91 L 12/19/22 11:00 57 L 14 127/76 97 12/19/22 10:30 69 14 120/48 98 12/19/22 10:00 60 13 116/47 98 12/19/22 09:30 86 14 140/57 94 L 12/19/22 09:00 84 14 152/57 95 12/19/22 08:30 79 14 116/62 96 12/19/22 08:00 97.5 F L 78 16 125/69 92 L 12/19/22 07:58 80 12/19/22 07:49 80 93 L 12/19/22 07:30 82 14 118/72 95 12/19/22 07:00 91 10 L 152/64 95 12/19/22 06:30 87 12 149/59 96 12/19/22 06:00 83 14 149/63 94 L 12/19/22 05:30 83 14 137/71 94 L 12/19/22 05:10 83 15 153/70 94 L 12/19/22 05:00 87 14 137/127 96 12/19/22 04:50 85 15 137/127 93 L 12/19/22 04:40 92 12 120/56 93 L 12/19/22 04:30 90 16 137/58 90 L 12/19/22 04:20 89 10 L 137/58 89 L 12/19/22 04:10 93 15 140/61 87 L 12/19/22 04:00 97.4 F L 93 86 18 154/57 88 L 12/19/22 03:50 93 11 L 154/57 90 L 12/19/22 03:40 89 12 141/56 12/19/22 03:30 90 16 150/64 12/19/22 03:27 97.3 F L 86 16 157/64 12/19/22 03:20 89 19 150/64 12/19/22 03:10 87 15 151/64 12/19/22 03:00 87 15 129/70 12/19/22 02:50 87 14 129/70 12/19/22 02:40 87 13 138/72 12/19/22 02:30 89 12 122/61 12/19/22 02:20 81 13 122/61 12/19/22 02:10 86 13 137/54 12/19/22 02:00 83 12 121/61 97 12/19/22 01:50 88 13 121/61 12/19/22 01:40 86 13 126/52 12/19/22 01:30 87 15 137/58 12/19/22 01:20 80 14 137/58 12/19/22 01:10 84 15 129/60 12/19/22 01:00 81 17 97/81 12/19/22 00:50 77 17 97/81 12/19/22 00:40 73 166 H 106/74 12/19/22 00:30 74 15 133/98 12/19/22 00:20 71 19 133/98 12/19/22 00:10 71 19 133/98 12/19/22 00:00 97.8 F 69 17 122/48 12/18/22 23:54 68 18 122/48 12/18/22 23:50 64 18 122/48 12/18/22 23:40 65 18 122/48 12/18/22 23:30 70 17 127/101 12/18/22 23:20 77 18 127/101 12/18/22 23:10 72 16 127/101 12/18/22 23:00 73 17 141/102 12/18/22 22:50 76 18 141/102 12/18/22 22:40 79 17 141/102 12/18/22 22:30 76 16 120/72 12/18/22 22:20 18 120/72 12/18/22 22:10 77 18 133/85 92 L 12/18/22 22:03 18 12/18/22 21:45 77 12/18/22 21:33 98.7 F 77 18 111/75 99 12/18/22 21:29 78 12/18/22 21:15 72 16 154/81 97 12/18/22 20:34 98.2 F 80 18 130/68 97 12/18/22 19:47 90 18 127/106 95 12/18/22 19:40 94.6 F L 124 H 19 137/63 97 12/18/22 17:06 97.6 F 54 L 18 134/63 97 Intake and Output 12/18/22 12/19/22 12/19/22 22:59 06:59 14:59 Intake Total 1200 1400 550 Output Total 150 550 120 Balance 1050 850 430 Intake: IV 1200 900 550 Calcium Gluconate in NaCl 100 1 gm In Saline 1 100ml. bag @ 100 mls/hr IVPB ONCE ONE Rx#:[id number] Dextrose 5% in Water 1, 100 900 500 000 ml @ 100 mls/hr IV . [id number] PRASANNA with Sodium Bicarb (1 Meq/ml) 150 ml Rx#:[id number] Phytonadione 5 mg In 50 Sodium Chloride 0.9% 50 ml @ 100 mls/hr IVPB ONCE STA Rx#:[id number] Sodium Chloride 0.9% 1, 1000 000 ml @ 999 mls/hr IV . Q1H1M STA Rx#:[id number] Hemodialysis 500 Output: Urine 150 50 120 Uretheral ([place]) 150 0 Hemodialysis 500 Other: Voiding Method Indwelling Catheter Indwelling Catheter Weight 98.5 kg 98.5 kg 98.5 kg Results - Lab Results Most recent lab results Calcium 8.0 mg/dL (8.4-10.2) L 12/19/22 11:55 Phosphorus 8.0 mg/dL (2.5-4.5) H 12/19/22 05:21 Magnesium 2.3 mg/dL (1.6-2.3) 12/19/22 05:21 12/18/22 17:11 12/19/22 11:55 Assessment and Plan Plan: Assessment: 1. Acute kidney injury secondary to ATN worsened with the use of Lasix and lisinopril. Creatinine 9.45 on admission. Creatinine 1.29 in December 2021. No hydronephrosis noted on imaging. UA fairly benign. 2. Metabolic acidosis secondary to acute kidney injury, lactic acidosis from metformin. Improved with bicarbonate. 3. Hyperkalemia secondary to acute kidney injury, lisinopril. Improved with medical management and dialysis. 4. Diabetes mellitus. 5. Benign hypertension. Controlled. 6. Coronary disease with prior stenting. 7. Hyperphosphatemia secondary to acute kidney injury. Plan: Plan for second treatment of hemodialysis tomorrow. Stop bicarb drip. Start normal saline at 75 mL an hour. Avoid nephrotoxins. Check serologies and quantify proteinuria. Monitor for renal recovery. Add PhosLo with meals. Thank you for the consultation. I will continue to follow the patient with you during his hospital stay.
[2022-12-19] MEDS: SODIUM CHLORIDE 0.9% 1,000 ML IV SCH (13:49)
[2022-12-19 13:50] LABS: Glucose,Whole Blood 152 mg/dL (70-110)
[2022-12-19 16:43] LABS: Glucose,Whole Blood 88 mg/dL (70-110)
[2022-12-19] MEDS: CALCIUM ACETATE 667 MG TAB PO SCH (16:43)
[2022-12-19 20:08] LABS: Glucose,Whole Blood 82 mg/dL (70-110)
[2022-12-19] MEDS: ATORVASTATIN 80 MG TAB PO SCH (20:17)
[2022-12-19 22:55] LABS: Anti-DNA, DS unit <1.0 IU/mL; DNA Double-Stranded Negative (Negative)
[2022-12-19 23:45] LABS: Albumin 3.2 g/dL (3.8-4.9); Immunoglobulin M 57.1 mg/dL (40.0-280.0); Protein, Total 5.4 g/dL (6.2-8.2)
[2022-12-20 03:09] LABS: Hepatitis A Antibody IgM Nonreactive; Hepatitis B Core IgM Nonreactive; Hepatitis B Surface Antigen Nonreactive; Hepatitis C IgG Antibody Nonreactive
[2022-12-20] MEDS: SODIUM CHLORIDE 0.9% 1,000 ML IV SCH ×2 (06:43→16:35)
[2022-12-20] MEDS: INSULIN ASPART (NovoLOG) 100 UNIT/ML VIAL SQ SCH ×4 (07:01→20:52)
[2022-12-20 07:02] LABS: Glucose,Whole Blood 78 mg/dL (70-110)
[2022-12-20] MEDS: CALCIUM ACETATE 667 MG TAB PO SCH ×3 (07:05→17:07)
[2022-12-20 07:22] LABS: Basophils % (A) 0 %; Eosinophils # (A) 0.1 k/uL (0-0.7); Eosinophils % (A) 1 %; HCT 28.7 % (39.0-53.0); HGB 9.5 gm/dL (13.0-17.5); Lymphocytes # (A) 1.8 k/uL (1.0-4.8); Lymphocytes % (A) 17 %; MCH 28.8 pg (25.0-35.0); MCHC 32.9 g/dL (31.0-37.0); MCV 87.5 fL (80.0-100.0); Mean Platelet Volume 7.3; Monocytes # (A) 0.6 k/uL (0-1.0); Monocytes % (A) 6 %; Neutrophils # (A) 8.1 k/uL (1.3-7.7); Neutrophils % (A) 75 %; Platelet Count 252 k/uL (150-450); RBC 3.28 m/uL (4.30-5.90); RDW 14.8 % (11.5-15.5); WBC 10.8 k/uL (3.8-10.6)
[2022-12-20 07:26] LABS: INR 1.6 (<1.2); Prothrombin Time 16.1 sec (10.0-12.5)
[2022-12-20 07:41] LABS: African American GFR (CKD) 8 (>60 ml/min/1.73 sqM); Anion Gap 14 mmol/L; Blood Urea Nitrogen 80 mg/dL (9-20); Calcium 8.1 mg/dL (8.4-10.2); Carbon Dioxide 22 mmol/L (22-30); Chloride 103 mmol/L (98-107); Glucose 75 mg/dL (74-99); Non-African American GFR(CKD) 7 (>60 ml/min/1.73 sqM); Potassium 5.4 mmol/L (3.5-5.1); Sodium 139 mmol/L (137-145)
[2022-12-20] MEDS: cloNIDine HCL 0.1 MG TAB PO SCH ×2 (08:34→20:56)
[2022-12-20] MEDS: hydrALAZINE HCL 25 MG TAB PO SCH (08:34)
[2022-12-20] MEDS: PANTOPRAZOLE 40 MG/10 ML VIAL IV SCH (08:34)
[2022-12-20] MEDS: METOPROLOL SUCCINATE (ER) 50 MG TAB.ER.24H PO SCH (08:34)
[2022-12-20] MEDS: amLODIPine 5 MG TAB PO SCH ×2 (08:35→20:56)
--- NOTE | 2022-12-20 09:57 | P.PN ---
Subjective Progress Note Date: 12/20/22 I am seeing this patient in new consultation today 12/19/2022 in the intensive care unit after the patient presented to the emergency room yesterday evening altered and very weak. He was found to be in acute renal failure and started on emergent hemodialysis. Patient is a 77-year-old white male with past medical history significant for diabetes mellitus, hyperlipidemia, hypertension, coronary artery disease with previous stents, paroxysmal atrial fibrillation anticoagulated on warfarin, COPD, and lower extremity cellulitis. Patient reportedly received treatment for bilateral lower extremity cellulitis on outpatient basis within the last month or so. Patient's unsure of the antibiotic, may have been on Bactrim. Patient is currently confused, and overall a poor historian. I did call the patient's who states that over the last 2 weeks he has not been eating or drinking much. He's been very weak and confused. On arrival to the emergency room yesterday evening the patient was fou nd to be in acute renal failure. He was severely acidotic and hyperkalemic with a potassium of 9.45. There were EKG related changes with bradycardia and widening of the QRS complex. Patient was treated twice with a k cocktail including calcium gluconate, D50W, regular insulin, albuterol, and 2 A of sodium bicarb. Patient also received a dose Lokelma. A femoral hemodialysis catheter was placed by vascular surgery, and the patient is currently undergoing emergent hemodialysis. Patient was admitted to the intensive care unit. He is currently lying in bed, on room air, in no acute distress. Blood pressure normotensive, not on any vasopressors. 3 amps sodium bicarbonate in D5W is infusing at 100 ML's per hour. Heart rhythm currently normal sinus with rate of 80 bpm. Chest x-ray on arrival showed no acute cardiopulmonary process. CBC on arrival showed some mild leukocytosis with a WBC count of 11.2, hemoglobin 10.5, hematocrit 32.7, platelets 317. CMP on arrival showed a sodium 136, potassium 8.8, chloride 103, serum bicarbonate 9, anion gap 24, BUN 132, creatinine 9.45, glucose 247. Lactic acid was elevated at 6.4 and is down to 5.3. Urinalysis not concerning for UTI. Lipase mildly elevated at 485. LFTs not elevated. Patient is reporting some mild abdominal pain with palpation. No nausea or vomiting. Non-jaundiced. INR supratherapeutic at 4.6. reports that the patient had burgundy-colored loose stools at home. No further bloody stools or melena reported by nursing staff. CT of abdomen and pelvis without contrast did not show any acute abdominal process. No obstructive uropathy. Afebrile. Patient is currently hemodynamically stable, and monitored on the intensive care unit. Objective - Vital Signs Vital signs: Vital Signs Temp 97.6 F 12/20/22 08:00 Pulse 79 12/20/22 08:00 Resp 14 12/20/22 08:00 BP 143/69 12/20/22 08:00 Pulse Ox 99 12/20/22 08:00 FiO2 Intake & Output 12/19/22 12/20/22 12/20/22 18:59 06:59 18:59 Intake Total 1000 975 100 Output Total 420 1185 265 Balance 580 210 165 Weight 98.5 kg 99.3 kg Intake: IV 1000 975 75 Dextrose 5% in Water 1, 500 000 ml @ 100 mls/hr IV . [id number] PRASANNA with Sodium Bicarb (1 Meq/ml) 150 ml Rx#:[id number] Phytonadione 5 mg In 50 Sodium Chloride 0.9% 50 ml @ 100 mls/hr IVPB ONCE STA Rx#:[id number] Sodium Chloride 0.9% 1, 450 975 75 000 ml @ 75 mls/hr IV . [id number] PRASANNA Rx#:[id number] Oral 25 Output: Urine 420 1185 265 Other: Voiding Method Indwelling Catheter Indwelling Catheter - Exam GENERAL EXAM: Alert and disoriented, 77-year-old male , fairly comfortable in no apparent distress. HEAD: Normocephalic and atraumatic EYES: Normal reaction of pupils, equal size. NOSE: Clear with pink turbinates. THROAT: No erythema or exudates. NECK: No masses, no JVD. CHEST: No chest wall deformity. LUNGS: Equal air entry with no crackles, wheeze, rhonchi or dullness. On room air. No conversational dyspnea or accessory muscle use.. CVS: S1 and S2 normal with no audible murmur, regular rhythm. No extra heart sounds ABDOMEN: No hepatosplenomegaly, active bowel sounds, no guarding or rigidity. No abdominal bruising or distention. SPINE: No scoliosis or deformity SKIN: No rashes. Bilateral legs are edematous and dry/flaky CENTRAL NERVOUS SYSTEM: Patient is oriented to self and in place. Able to follow simple instructions. No focal deficits, tone is normal in all 4 extremities. EXTREMITIES: There is 2+ bilateral lower extremity edema. No clubbing, or cyanosis. Peripheral pulses are intact. - Labs CBC & Chem 7: 12/20/22 07:12 12/20/22 07:12 Labs: Abnormal Lab Results - Last 24 Hours (Table) 12/18/22 12/19/22 12/19/22 Range/Units 17:11 05:21 11:55 WBC (3.8-10.6) k/uL RBC (4.30-5.90) m/uL Hgb (13.0-17.5) gm/dL Hct (39.0-53.0) % Neutrophils # (1.3-7.7) k/uL PT (10.0-12.5) sec INR (<1.2) Potassium (3.5-5.1) mmol/L BUN 84 H (9-20) mg/dL Creatinine 7.06 H* (0.66-1.25) mg/dL Glucose 67 L (74-99) mg/dL POC Glucose (mg/dL) (70-110) mg/dL Hemoglobin A1c 8.0 H (<=6.0) % Calcium 8.0 L (8.4-10.2) mg/dL Total Protein (PEP) 5.4 L (6.2-8.2) g/dL Albumin (PEP) 3.2 L (3.8-4.9) g/dL 12/19/22 12/19/22 12/20/22 Range/Units 11:55 13:48 07:12 WBC (3.8-10.6) k/uL RBC (4.30-5.90) m/uL Hgb (13.0-17.5) gm/dL Hct (39.0-53.0) % Neutrophils # (1.3-7.7) k/uL PT 33.6 H 16.1 H (10.0-12.5) sec INR 3.4 H 1.6 H (<1.2) Potassium (3.5-5.1) mmol/L BUN (9-20) mg/dL Creatinine (0.66-1.25) mg/dL Glucose (74-99) mg/dL POC Glucose (mg/dL) 152 H (70-110) mg/dL Hemoglobin A1c (<=6.0) % Calcium (8.4-10.2) mg/dL Total Protein (PEP) (6.2-8.2) g/dL Albumin (PEP) (3.8-4.9) g/dL 12/20/22 12/20/22 Range/Units 07:12 07:12 WBC 10.8 H (3.8-10.6) k/uL RBC 3.28 L (4.30-5.90) m/uL Hgb 9.5 L (13.0-17.5) gm/dL Hct 28.7 L (39.0-53.0) % Neutrophils # 8.1 H (1.3-7.7) k/uL PT (10.0-12.5) sec INR (<1.2) Potassium 5.4 H (3.5-5.1) mmol/L BUN 80 H (9-20) mg/dL Creatinine 7.35 H* (0.66-1.25) mg/dL Glucose (74-99) mg/dL POC Glucose (mg/dL) (70-110) mg/dL Hemoglobin A1c (<=6.0) % Calcium 8.1 L (8.4-10.2) mg/dL Total Protein (PEP) (6.2-8.2) g/dL Albumin (PEP) (3.8-4.9) g/dL Assessment and Plan Assessment: Acute kidney injury/failure requiring emergent hemodialysis likely secondary to intravascular volume depletion, dehydration, and use of debra inhibitors and diuretics Severe metabolic anion gap acidosis and lactic acidosis, improving Severe hyperkalemia, secondary to above, improving Acute metabolic encephalopathy, secondary to above Severe dehydration and reduced oral intake Abdominal pain, CT of abdomen showed no acute intra-abdominal process. Diabetes mellitus type 2 Hyperlipidemia Hypertension History of coronary artery disease and previous CO requiring heart catheter ization and stents. History of paroxysmal atrial fibrillation, normally anticoagulated on warfarin Supratherapeutic INR, possible GI bleeding reported at home. No further episodes as inpatient Normocytic normochromic anemia Chronic obstructive pulmonary disease, stable Obesity, with a BMI of 31.2 kg/m Plan: Patient is admitted to the intensive care unit for severe hyperkalemia and emergent hemodialysis. Patient has received a hemodialysis catheter placed by vascular surgery. Currently undergoing emergent hemodialysis. There were EKG associated changes including hyperacute T waves in QRS widening. Currently, heart rhythm appears normal sinus around 80 bpm. I will continue sodium bicarbonate infusion at 100 ML's per hour. All nephrotoxic medications. Urinalysis not concerning for UTI. Trend lactic acid. Hold metformin. NovoLog insulin ACHS to scale. Hold warfarin, and monitor INR. No further reports of GI bleed per nursing. Recheck PT/INR in the morning Patient does have some generalized abdominal pain. CT of the abdomen showed no acute intra-abdominal process. No obstructive uropathy. LFTs not elevated. Mildly elevated pancreatic enzymes. Protonix for GI prophylaxis. CXR noted. on room air. Patient will be monitored in the intensive care unit. Overall prognosis is guarded. Further recommendations are forthcoming. I have personally seen and examined the patient, performed the documentation and the assessment and plan as written. Number of minutes spent on the visit:20 There is a joint evaluation that was done along with the nurse practitioner. Evaluation was done in >30 min. The patient presented to us with nausea and emesis and and altered mentation and extreme weakness and dehydration. He was in acute kidney injury. Is known to have multiple medical problems including COPD, CAD, diabetes mellitus and hypertension and hyperlipidemia. He was also treated for a cellulitis of the lower extremity on outpatient basis for which he was given an antibiotic. The patient came in with severe dehydration, acute kidney injury with a creatinine of 9.4 and a potassium level of 8.8 with some minimal EKG changes. His lactic acid level was at 6.4, admission and he was also coagulopathic with an INR of 4.6 and the patient was taking warfarin. He was on room air oxygen. No respiratory distress. His hyperkalemia was initially treated with calcium, bicarb and insulin with D50. Subsequently, he required to undergo hemodialysis was completed yesterday. He has a pretty hemodialysis catheter in his right femoral vein. Morning potassium is down to 5. No EKG changes. Hemodynamically stable on no pressors. He received a total of 2 L in the emergency and currently is on bicarb infusion at the rate of 100 mL an hour. Urine output is bloody and he started to make some urine output for now. No signs of any respiratory distress. Cardiac rhythm is sinus. Monitor electrolytes, continue the bicarb infusion for today, stop the DEBRA inhibitor's and avoid any form of nephrotoxic agents. Stop to oral hypoglycemic medications including Glucotrol. Stop the warfarin for now. Give the patient 5 mg of vitamin K. Awaiting ultrasound the kidneys to rule out hydronephrosis. CAT scan of the abdomen showed no evidence of hydronephrosis to no significant intra-abdominal abnormalities. No kidney stones or obstructive uropathy. L actic acid level is improving. Potassium is improving. We'll keep the patient ICU. We'll continue to follow.
--- NOTE | 2022-12-20 10:05 | P.PN ---
Subjective Progress Note Date: 12/20/22 I am seeing this patient in new consultation today 12/19/2022 in the intensive care unit after the patient presented to the emergency room yesterday evening altered and very weak. He was found to be in acute renal failure and started on emergent hemodialysis. Patient is a 77-year-old white male with past medical history significant for diabetes mellitus, hyperlipidemia, hypertension, coronary artery disease with previous stents, paroxysmal atrial fibrillation anticoagulated on warfarin, COPD, and lower extremity cellulitis. Patient reportedly received treatment for bilateral lower extremity cellulitis on outpatient basis within the last month or so. Patient's unsure of the antibiotic, may have been on Bactrim. Patient is currently confused, and overall a poor historian. I did call the patient's who states that over the last 2 weeks he has not been eating or drinking much. He's been very weak and confused. On arrival to the emergency room yesterday evening the patient was fou nd to be in acute renal failure. He was severely acidotic and hyperkalemic with a potassium of 9.45. There were EKG related changes with bradycardia and widening of the QRS complex. Patient was treated twice with a k cocktail including calcium gluconate, D50W, regular insulin, albuterol, and 2 A of sodium bicarb. Patient also received a dose Lokelma. A femoral hemodialysis catheter was placed by vascular surgery, and the patient is currently undergoing emergent hemodialysis. Patient was admitted to the intensive care unit. He is currently lying in bed, on room air, in no acute distress. Blood pressure normotensive, not on any vasopressors. 3 amps sodium bicarbonate in D5W is infusing at 100 ML's per hour. Heart rhythm currently normal sinus with rate of 80 bpm. Chest x-ray on arrival showed no acute cardiopulmonary process. CBC on arrival showed some mild leukocytosis with a WBC count of 11.2, hemoglobin 10.5, hematocrit 32.7, platelets 317. CMP on arrival showed a sodium 136, potassium 8.8, chloride 103, serum bicarbonate 9, anion gap 24, BUN 132, creatinine 9.45, glucose 247. Lactic acid was elevated at 6.4 and is down to 5.3. Urinalysis not concerning for UTI. Lipase mildly elevated at 485. LFTs not elevated. Patient is reporting some mild abdominal pain with palpation. No nausea or vomiting. Non-jaundiced. INR supratherapeutic at 4.6. reports that the patient had burgundy-colored loose stools at home. No further bloody stools or melena reported by nursing staff. CT of abdomen and pelvis without contrast did not show any acute abdominal process. No obstructive uropathy. Afebrile. Patient is currently hemodynamically stable, and monitored on the intensive care unit. , On today's evaluation of 12/20/2022, the patient is awake and alert and c ommunicating. He is still feeling weak and fatigued. He is currently on oxygen at 2 L and his breathing is not labored at this point in time. As mentioned earlier, the patient presented to us with an acute kidney injury. He had significant electronic abnormalities including a significant hyperkalemia. He underwent hemodialysis yesterday and since yesterday the patient's urine operas improving and the patient is producing approximately 100 mL of urine output. His potassium level is down to 5.4. This is slightly elevated compared to yesterday where his potassium level was at 4.7. BUN is at 80 with a creatinine of 7.35. Otherwise, the 10.8 with a hemoglobin of 9.5 and a platelet count of 252. Ammonia level was less than 9. His lactic acid level has normalized. Blood sugar is currently at 78. The discomfort of 10.8 with a hemoglobin of 9.5. No hypotension. No hemodynamic instability. Nephrology is on the case. Possible hemodialysis today. He was provided some clear liquid diet. No focal neurological deficits. He remains afebrile. Objective - Vital Signs Vital signs: Vital Signs Temp 97.6 F 12/20/22 08:00 Pulse 79 12/20/22 08:00 Resp 14 12/20/22 08:00 BP 143/69 12/20/22 08:00 Pulse Ox 99 12/20/22 08:00 FiO2 Intake & Output 12/19/22 12/20/22 12/20/22 18:59 06:59 18:59 Intake Total 1000 975 100 Output Total 420 1185 265 Balance 580 -210 -165 Weight 98.5 kg 99.3 kg Intake: IV 1000 975 75 Dextrose 5% in Water 1, 500 000 ml @ 100 mls/hr IV . [id number] PRASANNA with Sodium Bicarb (1 Meq/ml) 150 ml Rx#:[id number] Phytonadione 5 mg In 50 Sodium Chloride 0.9% 50 ml @ 100 mls/hr IVPB ONCE STA Rx#:[id number] Sodium Chloride 0.9% 1, 450 975 75 000 ml @ 75 mls/hr IV . [id number] [facility] Rx#:[id number] Oral 25 Output: Urine 420 1185 265 Other: Voiding Method Indwelling Catheter Indwelling Catheter - Exam GENERAL EXAM: Alert and disoriented, 77-year-old male , fairly comfortable in no apparent distress. 2 liters/min HEAD: Normocephalic and atraumatic EYES: Normal reaction of pupils, equal size. NOSE: Clear with pink turbinates. THROAT: No erythema or exudates. NECK: No masses, no JVD. CHEST: No chest wall deformity. LUNGS: Equal air entry with no crackles, wheeze, rhonchi or dullness. On room air. No conversational dyspnea or accessory muscle use.. CVS: S1 and S2 normal with no audible murmur, regular rhythm. No extra heart sounds ABDOMEN: No hepatosplenomegaly, active bowel sounds, no guarding or rigidity. No abdominal bruising or distention. SPINE: No scoliosis or deformity SKIN: No rashes. Bilateral legs are edematous and dry/flaky CENTRAL NERVOUS SYSTEM: Patient is oriented to self and in place. Able to follow simple instructions. No focal deficits, tone is normal in all 4 extrem ities. EXTREMITIES: There is 2+ bilateral lower extremity edema. No clubbing, or cyanosis. Peripheral pulses are intact. - Labs CBC & Chem 7: 12/20/22 07:12 12/20/22 07:12 Labs: Abnormal Lab Results - Last 24 Hours (Table) 12/18/22 12/19/22 12/19/22 Range/Units 17:11 05:21 11:55 WBC (3.8-10.6) k/uL RBC (4.30-5.90) m/uL Hgb (13.0-17.5) gm/dL Hct (39.0-53.0) % Neutrophils # (1.3-7.7) k/uL PT (10.0-12.5) sec INR (<1.2) Potassium (3.5-5.1) mmol/L BUN 84 H (9-20) mg/dL Creatinine 7.06 H* (0.66-1.25) mg/dL Glucose 67 L (74-99) mg/dL POC Glucose (mg/dL) (70-110) mg/dL Hemoglobin A1c 8.0 H (<=6.0) % Calcium 8.0 L (8.4-10.2) mg/dL Total Protein (PEP) 5.4 L (6.2-8.2) g/dL Albumin (PEP) 3.2 L (3.8-4.9) g/dL 12/19/22 12/19/22 12/20/22 Range/Units 11:55 13:48 07:12 WBC (3.8-10.6) k/uL RBC (4.30-5.90) m/uL Hgb (13.0-17.5) gm/dL Hct (39.0-53.0) % Neutrophils # (1.3-7.7) k/uL PT 33.6 H 16.1 H (10.0-12.5) sec INR 3.4 H 1.6 H (<1.2) Potassium (3.5-5.1) mmol/L BUN (9-20) mg/dL Creatinine (0.66-1.25) mg/dL Glucose (74-99) mg/dL POC Glucose (mg/dL) 152 H (70-110) mg/dL Hemoglobin A1c (<=6.0) % Calcium (8.4-10.2) mg/dL Total Protein (PEP) (6.2-8.2) g/dL Albumin (PEP) (3.8-4.9) g/dL 12/20/22 12/20/22 Range/Units 07:12 07:12 WBC 10.8 H (3.8-10.6) k/uL RBC 3.28 L (4.30-5.90) m/uL Hgb 9.5 L (13.0-17.5) gm/dL Hct 28.7 L (39.0-53.0) % Neutrophils # 8.1 H (1.3-7.7) k/uL PT (10.0-12.5) sec INR (<1.2) Potassium 5.4 H (3.5-5.1) mmol/L BUN 80 H (9-20) mg/dL Creatinine 7.35 H* (0.66-1.25) mg/dL Glucose (74-99) mg/dL POC Glucose (mg/dL) (70-110) mg/dL Hemoglobin A1c (<=6.0) % Calcium 8.1 L (8.4-10.2) mg/dL Total Protein (PEP) (6.2-8.2) g/dL Albumin (PEP) (3.8-4.9) g/dL Assessment and Plan Assessment: Acute kidney injury/failure requiring emergent hemodialysis likely secondary to intravascular volume depletion, dehydration, and use of ar inhibitors and diuretics, post HD and the patient started making some urine output Severe metabolic anion gap acidosis and lactic acidosis, recovered and he is on NSS at 75 cc/hr Severe hyperkalemia, secondary to above, improving Acute metabolic encephalopathy, secondary to above Severe dehydration and reduced oral intake, improved Abdominal pain, CT of abdomen showed no acute intra-abdominal process. Diabetes mellitus type 2 Hyperlipidemia Hypertension History of coronary artery disease and previous NM requiring heart catheterization and stents. History of paroxysmal atrial fibrillation, normally anticoagulated on warfarin Supratherapeutic INR, possible GI bleeding reported at home. No further episodes as inpatient Normocytic normochromic anemia Chronic obstructive pulmonary disease, stable Obesity, with a BMI of 31.2 kg/m Plan: This patient is still somewhat lethargic and fatigued and weak. He remains in renal failure. Urine operas improved. Creatinine remains elevated. Potassium level is borderline. He may benefit from another session of hemodialysis today. Nephrology is on the case. He was given vitamin K yesterday and his INR is currently down to 1.6. Is on 2 L of oxygen by nasal cannula. He is on normal saline at 75 mL an hour. He'll be kept in the intensive care unit for now for further monitoring. We'll provide a carb consistent diet. We'll continue to follow. His warfarin is still on hold.
--- NOTE | 2022-12-20 11:01 | P.PN ---
Subjective Patient is seen in follow-up for acute kidney injury. Started on hemodialysis 12/19/2022. Creatinine 7.35 today. Urine output improved significantly. On nasal cannula. Vital signs are stable. General: No acute distress. HEENT: Head exam is unremarkable. On nasal cannula. LUNGS: No audible rhonchi or wheezes. HEART: Rate and Rhythm are regular. ABDOMEN: Nontender. EXTREMITITES: Chronic changes noted. Trace edema. Objective - Vital Signs Vital signs: Vital Signs Temp 97.6 F 12/20/22 08:00 Pulse 65 12/20/22 10:00 Resp 17 12/20/22 10:00 BP 161/91 12/20/22 10:00 Pulse Ox 84 L 12/20/22 09:00 FiO2 Intake & Output 12/19/22 12/20/22 12/20/22 18:59 06:59 18:59 Intake Total 1000 975 250 Output Total 420 1185 540 Balance 580 -210 -290 Weight 98.5 kg 99.3 kg Intake: IV 1000 975 225 Dextrose 5% in Water 1, 500 000 ml @ 100 mls/hr IV . [id number] [facility] with Sodium Bicarb (1 Meq/ml) 150 ml Rx#:[id number] Phytonadione 5 mg In 50 Sodium Chloride 0.9% 50 ml @ 100 mls/hr IVPB ONCE STA Rx#:[id number] Sodium Chloride 0.9% 1, 450 975 225 000 ml @ 75 mls/hr IV . [id number] [facility] Rx#:[id number] Oral 25 Output: Urine 420 1185 540 Other: Voiding Method Indwelling Catheter Indwelling Catheter Indwelling Catheter - Labs CBC & Chem 7: 12/20/22 07:12 12/20/22 07:12 Labs: Abnormal Lab Results - Last 24 Hours (Table) 12/18/22 12/19/22 12/19/22 Range/Units 17:11 05:21 11:55 WBC (3.8-10.6) k/uL RBC (4.30-5.90) m/uL Hgb (13.0-17.5) gm/dL Hct (39.0-53.0) % Neutrophils # (1.3-7.7) k/uL PT (10.0-12.5) sec INR (<1.2) Potassium (3.5-5.1) mmol/L BUN 84 H (9-20) mg/dL Creatinine 7.06 H* (0.66-1.25) mg/dL Glucose 67 L (74-99) mg/dL POC Glucose (mg/dL) (70-110) mg/dL Hemoglobin A1c 8.0 H (<=6.0) % Calcium 8.0 L (8.4-10.2) mg/dL Total Protein (PEP) 5.4 L (6.2-8.2) g/dL Albumin (PEP) 3.2 L (3.8-4.9) g/dL 12/19/22 12/19/22 12/20/22 Range/Units 11:55 13:48 07:12 WBC (3.8-10.6) k/uL RBC (4.30-5.90) m/uL Hgb (13.0-17.5) gm/dL Hct (39.0-53.0) % Neutrophils # (1.3-7.7) k/uL PT 33.6 H 16.1 H (10.0-12.5) sec INR 3.4 H 1.6 H (<1.2) Potassium (3.5-5.1) mmol/L BUN (9-20) mg/dL Creatinine (0.66-1.25) mg/dL Glucose (74-99) mg/dL POC Glucose (mg/dL) 152 H (70-110) mg/dL Hemoglobin A1c (<=6.0) % Calcium (8.4-10.2) mg/dL Total Protein (PEP) (6.2-8.2) g/dL Albumin (PEP) (3.8-4.9) g/dL 12/20/22 12/20/22 Range/Units 07:12 07:12 WBC 10.8 H (3.8-10.6) k/uL RBC 3.28 L (4.30-5.90) m/uL Hgb 9.5 L (13.0-17.5) gm/dL Hct 28.7 L (39.0-53.0) % Neutrophils # 8.1 H (1.3-7.7) k/uL PT (10.0-12.5) sec INR (<1.2) Potassium 5.4 H (3.5-5.1) mmol/L BUN 80 H (9-20) mg/dL Creatinine 7.35 H* (0.66-1.25) mg/dL Glucose (74-99) mg/dL POC Glucose (mg/dL) (70-110) mg/dL Hemoglobin A1c (<=6.0) % Calcium 8.1 L (8.4-10.2) mg/dL Total Protein (PEP) (6.2-8.2) g/dL Albumin (PEP) (3.8-4.9) g/dL Assessment and Plan Plan: Assessment: 1. Acute kidney injury secondary to ATN worsened with the use of Lasix and lisinopril. Creatinine 9.45 on admission. Creatinine 1.29 in December 2021. No hydronephrosis noted on imaging. UA fairly benign. Started on hemodialysis 12/19/2022. 2. Metabolic acidosis secondary to acute kidney injury, lactic acidosis from metformin. Status post bicarb drip. Improved. 3. Hyperkalemia secondary to acute kidney injury, lisinopril. Improved with me dical management and dialysis. 4. Diabetes mellitus. 5. Benign hypertension. Stable. 6. Coronary disease with prior stenting. 7. Hyperphosphatemia secondary to acute kidney injury. On PhosLo. Plan: Secondary hemodialysis today. Maintain normal saline at 75 mL an hour. Avoid nephrotoxins. Follow-up serologies. Monitor for renal recovery. Continue to assess daily for need for renal replacement therapy. Repeat phosphorus level tomorrow. Increase dose of hydralazine
[2022-12-20 11:13] LABS: Glucose,Whole Blood 144 mg/dL (70-110)
[2022-12-20] MEDS ORDERED: ZINC OXIDE PASTE (Z-GUARD) 1 APPLIC APPLIC TOPICAL PRN (11:46)
[2022-12-20 14:29] LABS: C-ANCA <1:20 Titer (<1:20)
--- NOTE | 2022-12-20 14:53 | P.PN ---
Subjective Progress Note Date: 12/20/22 Principal diagnosis: Abdominal pain, GI bleed This is a 77-year-old male with a past medical history including COPD, diabetes mellitus, hyperlipidemia, hypertension, myocardial infarction, coronary artery disease status post stenting on warfarin, and remote history of alcohol abuse who presented to the emergency department with confusion, weakness, and complaints of abdominal pain. Patient was admitted to the ICU with acute kidney injury requiring hemodialysis, supratherapeutic INR of 5.4, lactic acidosis and altered mental status changes. Patient currently is awake and alert, seems somewhat confused. States he has no abdominal pain at this time. States he was having abdominal pain for about 2 days prior to coming into the emergency department. He denied any nausea or vomiting. Nursing reports he has not had a bowel movement since being hospitalized. They do report that the stated yesterday he was having some dark stool and therefore gastroenterology was consulted for GI bleed. Again patient denies any black stools nursing as stating he has not had any bowel movements. He had a Quezada catheter placed this morning with bright red bloody urine. He did have mild elevation of his lipase is well at 430. Patient is a poor historian at this time. Warfarin is currently on hold and patient being administered vitamin K. He had a CT of the abdomen and pelvis showing no acute findings. 12/20/2022 Patient seen and examined as a follow-up. Patient remains in the ICU. Patient was resting, states he is very tired he wants to be left alone. No reported bowel movement or signs of GI bleed. WBC 10.8 Hemoglobin 9.5 platelet count 252,010 are 1.6 sodium 139 potassium 5.4 BUN 80 creatinine 7.35. He is scheduled for hemodialysis again today. Urine is clear today. Objective - Vital Signs Vital signs: Vital Signs Temp 97.6 F 12/20/22 08:00 Pulse 65 12/20/22 10:00 Resp 17 12/20/22 10:00 BP 161/91 12/20/22 10:00 Pulse Ox 84 L 12/20/22 09:00 FiO2 Intake & Output 12/19/22 12/20/22 12/20/22 18:59 06:59 18:59 Intake Total 1000 975 250 Output Total 420 1185 540 Balance 580 -210 -290 Weight 98.5 kg 99.3 kg Intake: IV 1000 975 225 Dextrose 5% in Water 1, 500 000 ml @ 100 mls/hr IV . [id number] PRASANNA with Sodium Bicarb (1 Meq/ml) 150 ml Rx#:[id number] Phytonadione 5 mg In 50 Sodium Chloride 0.9% 50 ml @ 100 mls/hr IVPB ONCE STA Rx#:[id number] Sodium Chloride 0.9% 1, 450 975 225 000 ml @ 75 mls/hr IV . [id number] [facility] Rx#:[id number] Oral 25 Output: Urine 420 1185 540 Other: Voiding Method Indwelling Catheter Indwelling Catheter Indwelling Catheter - Exam General appearance: The patient is alert, oriented, appears in no acute distress. HET: Head is normocephalic and atraumatic. Conjunctiva pink. Sclera anicteric. Neck: Supple without lymphadenopathy. Abdomen: Soft, obese, nontender, nondistended with bowel sounds. No guarding or rigidity. Extremities: Normal skin color and turgor. No pedal edema Skin: No rashes, no jaundice Neurological: No focal deficits. Alert and oriented. - Labs CBC & Chem 7: 12/20/22 07:12 12/20/22 07:12 Labs: Abnormal Lab Results - Last 24 Hours (Table) 12/18/22 12/19/22 12/19/22 Range/Units 17:11 05:21 11:55 WBC (3.8-10.6) k/uL RBC (4.30-5.90) m/uL Hgb (13.0-17.5) gm/dL Hct (39.0-53.0) % Neutrophils # (1.3-7.7) k/uL PT (10.0-12.5) sec INR (<1.2) Potassium (3.5-5.1) mmol/L BUN 84 H (9-20) mg/dL Creatinine 7.06 H* (0.66-1.25) mg/dL Glucose 67 L (74-99) mg/dL POC Glucose (mg/dL) (70-110) mg/dL Hemoglobin A1c 8.0 H (<=6.0) % Calcium 8.0 L (8.4-10.2) mg/dL Total Protein (PEP) 5.4 L (6.2-8.2) g/dL Albumin (PEP) 3.2 L (3.8-4.9) g/dL 12/19/22 12/19/22 12/20/22 Range/Units 11:55 13:48 07:12 WBC (3.8-10.6) k/uL RBC (4.30-5.90) m/uL Hgb (13.0-17.5) gm/dL Hct (39.0-53.0) % Neutrophils # (1.3-7.7) k/uL PT 33.6 H 16.1 H (10.0-12.5) sec INR 3.4 H 1.6 H (<1.2) Potassium (3.5-5.1) mmol/L BUN (9-20) mg/dL Creatinine (0.66-1.25) mg/dL Glucose (74-99) mg/dL POC Glucose (mg/dL) 152 H (70-110) mg/dL Hemoglobin A1c (<=6.0) % Calcium (8.4-10.2) mg/dL Total Protein (PEP) (6.2-8.2) g/dL Albumin (PEP) (3.8-4.9) g/dL 12/20/22 12/20/22 Range/Units 07:12 07:12 WBC 10.8 H (3.8-10.6) k/uL RBC 3.28 L (4.30-5.90) m/uL Hgb 9.5 L (13.0-17.5) gm/dL Hct 28.7 L (39.0-53.0) % Neutrophils # 8.1 H (1.3-7.7) k/uL PT (10.0-12.5) sec INR (<1.2) Potassium 5.4 H (3.5-5.1) mmol/L BUN 80 H (9-20) mg/dL Creatinine 7.35 H* (0.66-1.25) mg/dL Glucose (74-99) mg/dL POC Glucose (mg/dL) (70-110) mg/dL Hemoglobin A1c (<=6.0) % Calcium 8.1 L (8.4-10.2) mg/dL Total Protein (PEP) (6.2-8.2) g/dL Albumin (PEP) (3.8-4.9) g/dL Assessment and Plan (1) Abdominal pain Narrative/Plan: 77-year-old male presented to the emergency department yesterday with family for concerns for confusion, weakness, and complaints of abdominal pain for the last 2-3 days duration. Patient was noted to be in acute renal failure, lactic acidosis and supratherapeutic INR. Patient on warfarin for coronary artery disease which is currently on hold and being treated with vitamin K. Reportedly the had reported patient was having dark stool at home however patient denies any blood in his stool or black stool. He also states abdominal pain has resolved. He had a CT abdomen and pelvis without any acute findings. He did have mild elevation in his amylase and lipase, 182 and 485 respectively. Unclear if he has a history of pancreatitis in the past. Patient is somewhat of a poor historian. He does admit to significant history of alcohol abuse but states he quit several years ago. Unclear etiology at this time of abdominal pain could've been mild uncomplicated pancreatitis however pain has resolved. Nursing is reporting no signs of GI blood loss. Hemoglobin is stable. I recommend treating supratherapeutic INR. Patient is also having gross hematuria. We will continue to monitor at this time, recommend protonic 40 mg daily. For GI prophylaxis. No plans on endoscopic evaluation at this time. Patient continues to have no evidence of GI blood loss at this time. Due to multiple comorbidities will continue to hold off on endoscopic evaluation unless patient has active bleeding. Discussed with outpatient follow-up for EGD and colonoscopy when patient stabilizes. Current Visit: Yes Status: Acute Code(s): R10.9 - UNSPECIFIED ABDOMINAL PAIN SNOMED Code(s): 81314566 (2) Melena Narrative/Plan: states patient had a maroon colored stool prior to coming to the hospital. And about 4 days prior patient had some bright red blood noted in his stool. No previous history of EGD or colonoscopy. No further bleeding noted since patient has been here to the hospital. Will plan for outpatient follow-up to schedule endoscopic evaluation unless patient continues to have blood in his stool. Current Visit: Yes Status: Acute Code(s): K92.1 - MELENA SNOMED Code(s): 9659508 (3) Supratherapeutic INR Current Visit: Yes Status: Acute Code(s): R79.1 - ABNORMAL COAGULATION PROFILE SNOMED Code(s): 865481769 (4) ESDRAS (acute kidney injury) Narrative/Plan: On renal replacement therapy Current Visit: Yes Status: Acute Code(s): N17.9 - ACUTE KIDNEY FAILURE, UNSPECIFIED SNOMED Code(s): 62135530 (5) Hyperkalemia Current Visit: Yes Status: Acute Code(s): E87.5 - HYPERKALEMIA SNOMED Code(s): 30139837 (6) Renal failure Current Visit: Yes Status: Acute Code(s): N19 - UNSPECIFIED KIDNEY FAILURE SNOMED Code(s): 45044133 (7) CAD (coronary artery disease) Current Visit: No Status: Acute Code(s): I25.10 - ATHSCL HEART DISEASE OF [place] CORONARY ARTERY W/O ANG PCTRS SNOMED Code(s): 51775365 (8) Diabetes Current Visit: No Status: Acute Code(s): E11.9 - TYPE 2 DIABETES MELLITUS WITHOUT COMPLICATIONS SNOMED Code(s): 08550867 (9) Gross hematuria Narrative/Plan: Improved Current Visit: Yes Status: Acute Code(s): R31.0 - GROSS HEMATURIA SNOMED Code(s): 437394025 Plan: 1. Continue symptomatic and supportive care 2. Advance diet as tolerated 3. Protonix 40 mg daily for GI prophylaxis 4. Monitor for symptoms of GI bleed 5. May resume anticoagulation 6. No plans on endoscopic evaluation at this time. Recommend outpatient follow-up for endoscopic evaluation. Thank you for this consultation, we will continue to follow. Dr. Radha Dickey I agree with the dictator's note, documented as a scribe by Blessing Bernal.
--- NOTE | 2022-12-20 15:13 | P.PN ---
Subjective Progress Note Date: 12/20/22 Patient is a 77-year-old male with COPD, diabetes, hypertension, dyslipidemia, prior myocardial infarction who presented to the emergency department due to abdominal pain and altered mentation. On arrival to the emergency department his vital signs within normal limits. Laboratory analysis was remarkable for white blood cell count 11.2, hemoglobin 10.5, potassium 8.8, carbon dioxide 9, BUN 132, creatinine 9.45, lactic acid 6.4, and lipase 485. He was also noted to have EKG changes significant for hyperkalemia. CT abdomen and pelvis shows no acute abdominal process. Chest x-ray shows no acute process. Patient was subsequently admitted to the ICU and arrangements were made for emergent dialysis. Pulmonary, vascular surgery, and nephrology were consulted. Vascular surgery placed a temporary dialysis catheter in the right groin. Patient subsequently underwent emergent hemodialysis. He had a renal and bladder ultrasound completed which showed no hydronephrosis or nephrolithiasis. He was seen by gastroenterology who recommended reversal of his INR and continued mirta toring without immediate plans for endoscopy. Patient seen and examined at bedside. He does not want to be here. He denies any pain, SOB, light headedness or dizziness. Vital signs reviewed General: ill appearing, no distress, appears at stated age Cardiovascular: S1S2 reg, no murmur, positive posterior tibial pulse bilateral, Lungs: Decreased bs b/l bilateral, no rhonchi, no rales , no accessory muscle use Abdominal: soft, nontender to palpation, no guarding, no appreciable org anomegaly Ext: no gross muscle atrophy, no edema b/l lower extremities, no contractures Neuro: CN II-XI grossly intact, no focal neuro deficits Psych: Alert, oriented to place, month, self- year 2002, appropriate affect Assessment/Plan: Acute kidney injury Anion gap metabolic acidosis Toxic metabolic encephalopathy Hyperphosphatemia Hypocalcemia Aneima - Nephrology note reviewed: Continue with hemodialysis, stop bicarb drip, monitor for renal recovery - s/p 1 round of HD - Normal saline at 75 mL/h - PhosLo 667 mg oral with each meal - Safe and supportive environment - Hold Lasix 20 mg daily and lisinopril 20 mg twice daily - Follow basic metabolic profile for renal recovery - Follow urine output for signs of renal recovery - aricept on hold - check iron studies Abdominal pain with melena -GI consultation reviewed: Have been held patient being treated with vitamin K. -Continue with Protonix 40 mg IV daily Supratherapeutic INR - improved - Patient received vitamin K 5 mg IV piggyback 1 on 12/19 -Warfarin on hold Diabetes mellitus type II - A1C 8 -Continue with sliding scale -Follow blood sugars -Hold glipizide, metformin, and Lantus 30 units Hyperkalemia, resolved Chronic conditions: COPD, CAD, HTN, HLD, paroxysmal AFib Imaging: Renal and bladder ultrasound: no hydronephrosis or nephrolithiasis Data Review: CBC reviewed and remarkable for WBC 10.8, Hgb 9.5 INR 1.6 BMP remarkable for potassium 5.4, BUN 80, creatinine 7.35 A1C 8 DVT prophylaxis: Start heparin 5000 units 3 times daily Anticipated discharge date: Pending Clinical Course Anticipated discharge place: Pending Clinical Course This dictation was prepared using [employer] voice recognition software. Though every attempt is made to correct errors during dictation some may still exist. Objective - Vital Signs Vital signs: Vital Signs Temp 97.8 F 12/20/22 04:00 Pulse 73 12/20/22 07:00 Resp 15 12/20/22 07:00 BP 143/69 12/20/22 07:00 Pulse Ox 98 12/20/22 07:00 FiO2 Intake & Output 12/19/22 12/20/22 12/20/22 18:59 06:59 18:59 Intake Total 1000 975 Output Total 420 1185 Balance 580 -210 Weight 98.5 kg 99.3 kg Intake: IV 1000 975 Dextrose 5% in Water 1, 500 000 ml @ 100 mls/hr IV . [id number] PRASANNA with Sodium Bicarb (1 Meq/ml) 150 ml Rx#:[id number] Phytonadione 5 mg In 50 Sodium Chloride 0.9% 50 ml @ 100 mls/hr IVPB ONCE STA Rx#:[id number] Sodium Chloride 0.9% 1, 450 975 000 ml @ 75 mls/hr IV . [id number] PRASANNA Rx#:[id number] Output: Urine 420 1185 Other: Voiding Method Indwelling Catheter Indwelling Catheter - Labs CBC & Chem 7: 12/20/22 07:12 12/20/22 07:12 Labs: Abnormal Lab Results - Last 24 Hours (Table) 11/12/19/22 12/19/22 Range/Units 17:11 05:21 08:23 WBC (3.8-10.6) k/uL RBC (4.30-5.90) m/uL Hgb (13.0-17.5) gm/dL Hct (39.0-53.0) % Neutrophils # (1.3-7.7) k/uL PT (10.0-12.5) sec INR (<1.2) Potassium (3.5-5.1) mmol/L BUN (9-20) mg/dL Creatinine (0.66-1.25) mg/dL Glucose (74-99) mg/dL POC Glucose (mg/dL) (70-110) mg/dL Hemoglobin A1c 8.0 H (<=6.0) % Plasma Lactic Acid Kenny 2.1 H* (0.7-2.0) mmol/L Calcium (8.4-10.2) mg/dL Total Protein (PEP) 5.4 L (6.2-8.2) g/dL Albumin (PEP) 3.2 L (3.8-4.9) g/dL 12/19/22 12/19/22 12/19/22 Range/Units 11:55 11:55 13:48 WBC (3.8-10.6) k/uL RBC (4.30-5.90) m/uL Hgb (13.0-17.5) gm/dL Hct (39.0-53.0) % Neutrophils # (1.3-7.7) k/uL PT 33.6 H (10.0-12.5) sec INR 3.4 H (<1.2) Potassium (3.5-5.1) mmol/L BUN 84 H (9-20) mg/dL Creatinine 7.06 H* (0.66-1.25) mg/dL Glucose 67 L (74-99) mg/dL POC Glucose (mg/dL) 152 H (70-110) mg/dL Hemoglobin A1c (<=6.0) % Plasma Lactic Acid Kenny (0.7-2.0) mmol/L Calcium 8.0 L (8.4-10.2) mg/dL Total Protein (PEP) (6.2-8.2) g/dL Albumin (PEP) (3.8-4.9) g/dL 12/20/22 12/20/22 12/20/22 Range/Units 07:12 07:12 07:12 WBC 10.8 H (3.8-10.6) k/uL RBC 3.28 L (4.30-5.90) m/uL Hgb 9.5 L (13.0-17.5) gm/dL Hct 28.7 L (39.0-53.0) % Neutrophils # 8.1 H (1.3-7.7) k/uL PT 16.1 H (10.0-12.5) sec INR 1.6 H (<1.2) Potassium 5.4 H (3.5-5.1) mmol/L BUN 80 H (9-20) mg/dL Creatinine 7.35 H* (0.66-1.25) mg/dL Glucose (74-99) mg/dL POC Glucose (mg/dL) (70-110) mg/dL Hemoglobin A1c (<=6.0) % Plasma Lactic Acid Kenny (0.7-2.0) mmol/L Calcium 8.1 L (8.4-10.2) mg/dL Total Protein (PEP) (6.2-8.2) g/dL Albumin (PEP) (3.8-4.9) g/dL
[2022-12-20 16:20] LABS: Glucose,Whole Blood 120 mg/dL (70-110)
[2022-12-20 17:21] LABS: Immunofixation, Serum Interp NM
[2022-12-20 20:30] LABS: Glucose,Whole Blood 130 mg/dL (70-110)
[2022-12-20] MEDS: hydrALAZINE HCL 50 MG TAB PO SCH (20:56)
[2022-12-20] MEDS: ATORVASTATIN 80 MG TAB PO SCH (20:56)
--- NOTE | 2022-12-20 23:55 | CONS ---
CONSULTATION HISTORY OF PRESENT ILLNESS: This is a 77-year-old gentleman. I was called in for placement of urgent dialysis catheter. The patient's creatinine is elevated to 9.5 and potassium is 8.8. The patient has oliguria. PAST MEDICAL HISTORY: History of COPD, diabetes mellitus, hyperlipidemia, hypertension, history of myocardial infarction. PAST SURGICAL HISTORY: The patient had a coronary artery stent placed in the past. PHYSICAL EXAMINATION: GENERAL: The patient was seen in the intensive care unit. NECK: Supple. CHEST: He has crackles bilateral. ABDOMEN: Soft, nontender. MUSCULOSKELETAL: Femorals are 1+. PLAN: Placement of the dialysis catheter. Risks and complications discussed. MMODL / IJN: [id number] /
[2022-12-21 05:37] LABS: HGB 9.1 gm/dL (13.0-17.5); MCH 28.3 pg (25.0-35.0); MCHC 32.4 g/dL (31.0-37.0); MCV 87.4 fL (80.0-100.0); Mean Platelet Volume 7.6; Platelet Count 215 k/uL (150-450); RDW 14.5 % (11.5-15.5); WBC 10.5 k/uL (3.8-10.6)
[2022-12-21 05:38] LABS: ALT 15 U/L (4-49); AST 23 U/L (17-59); African American GFR (CKD) 11 (>60 ml/min/1.73 sqM); Albumin 2.9 g/dL (3.5-5.0); Alkaline Phosphatase 49 U/L (38-126); Anion Gap 12 mmol/L; Blood Urea Nitrogen 48 mg/dL (9-20); Calcium 8.1 mg/dL (8.4-10.2); Carbon Dioxide 22 mmol/L (22-30); Chloride 102 mmol/L (98-107); Glucose 137 mg/dL (74-99); Non-African American GFR(CKD) 10 (>60 ml/min/1.73 sqM); Phosphorus 5.4 mg/dL (2.5-4.5); Potassium 4.9 mmol/L (3.5-5.1); Sodium 136 mmol/L (137-145); Total Bilirubin 0.8 mg/dL (0.2-1.3); Total Protein 5.6 g/dL (6.3-8.2)
[2022-12-21] MEDS: SODIUM CHLORIDE 0.9% 1,000 ML IV SCH ×2 (05:57→10:33)
[2022-12-21 06:15] LABS: Glucose,Whole Blood 143 mg/dL (70-110)
[2022-12-21] MEDS: INSULIN ASPART (NovoLOG) 100 UNIT/ML VIAL SQ SCH ×4 (06:25→19:57)
[2022-12-21] MEDS: CALCIUM ACETATE 667 MG TAB PO SCH ×3 (06:32→16:56)
[2022-12-21] MEDS: PANTOPRAZOLE 40 MG/10 ML VIAL IV SCH (08:37)
[2022-12-21] MEDS ORDERED: MORPHINE SULFATE 2 MG/ML SYRINGE IVP STA (08:51)
--- NOTE | 2022-12-21 08:51 | P.PN ---
Subjective Progress Note Date: 12/21/22 I am seeing this patient in new consultation today 12/19/2022 in the intensive care unit after the patient presented to the emergency room yesterday evening altered and very weak. He was found to be in acute renal failure and started on emergent hemodialysis. Patient is a 77-year-old white male with past medical history significant for diabetes mellitus, hyperlipidemia, hypertension, coronary artery disease with previous stents, paroxysmal atrial fibrillation anticoagulated on warfarin, COPD, and lower extremity cellulitis. Patient reportedly received treatment for bilateral lower extremity cellulitis on outpatient basis within the last month or so. Patient's unsure of the antibiotic, may have been on Bactrim. Patient is currently confused, and overall a poor historian. I did call the patient's who states that over the last 2 weeks he has not been eating or drinking much. He's been very weak and confused. On arrival to the emergency room yesterday evening the patient was fou nd to be in acute renal failure. He was severely acidotic and hyperkalemic with a potassium of 9.45. There were EKG related changes with bradycardia and widening of the QRS complex. Patient was treated twice with a k cocktail including calcium gluconate, D50W, regular insulin, albuterol, and 2 A of sodium bicarb. Patient also received a dose Lokelma. A femoral hemodialysis catheter was placed by vascular surgery, and the patient is currently undergoing emergent hemodialysis. Patient was admitted to the intensive care unit. He is currently lying in bed, on room air, in no acute distress. Blood pressure normotensive, not on any vasopressors. 3 amps sodium bicarbonate in D5W is infusing at 100 ML's per hour. Heart rhythm currently normal sinus with rate of 80 bpm. Chest x-ray on arrival showed no acute cardiopulmonary process. CBC on arrival showed some mild leukocytosis with a WBC count of 11.2, hemoglobin 10.5, hematocrit 32.7, platelets 317. CMP on arrival showed a sodium 136, potassium 8.8, chloride 103, serum bicarbonate 9, anion gap 24, BUN 132, creatinine 9.45, glucose 247. Lactic acid was elevated at 6.4 and is down to 5.3. Urinalysis not concerning for UTI. Lipase mildly elevated at 485. LFTs not elevated. Patient is reporting some mild abdominal pain with palpation. No nausea or vomiting. Non-jaundiced. INR supratherapeutic at 4.6. reports that the patient had burgundy-colored loose stools at home. No further bloody stools or melena reported by nursing staff. CT of abdomen and pelvis without contrast did not show any acute abdominal process. No obstructive uropathy. Afebrile. Patient is currently hemodynamically stable, and monitored on the intensive care unit. , On today's evaluation of 12/20/2022, the patient is awake and alert and c ommunicating. He is still feeling weak and fatigued. He is currently on oxygen at 2 L and his breathing is not labored at this point in time. As mentioned earlier, the patient presented to us with an acute kidney injury. He had significant electronic abnormalities including a significant hyperkalemia. He underwent hemodialysis yesterday and since yesterday the patient's urine operas improving and the patient is producing approximately 100 mL of urine output. His potassium level is down to 5.4. This is slightly elevated compared to yesterday where his potassium level was at 4.7. BUN is at 80 with a creatinine of 7.35. Otherwise, the 10.8 with a hemoglobin of 9.5 and a platelet count of 252. Ammonia level was less than 9. His lactic acid level has normalized. Blood sugar is currently at 78. The discomfort of 10.8 with a hemoglobin of 9.5. No hypotension. No hemodynamic instability. Nephrology is on the case. Possible hemodialysis today. He was provided some clear liquid diet. No focal neurological deficits. He remains afebrile. On 12/21/22, the patient is still confused. He is not consistent in his ability to provide history. He seems to be uncomfortable. Is complaining of some chronic back pain. His abdomen is also slightly distended. Nevertheless, the C AT scan of the abdomen and this was done at time of admission showed no evidence of any ileus or bowel obstruction and the bowel decompressed. He also had some chronic osteophytic changes in degenerative arthritis involving the thoracolumbar spine. The patient remains in renal failure although he has improved his urine output. Is producing approximately 100 mL of urine output and he has a Quezada catheter in place. His last hemodialysis session was done yesterday. His BUN is at 48 with a creatinine of 5.3. Potassium levels at 4.9. The visit 110.5 with a hemoglobin of 9.1 and a platelet count of 2:15. He remains on oxygen at 2 L with a pulse ox of 98%. He is afebrile. He is hemodynamically stable. He is on normal saline at rate of 75 mL an hour. His cardiac rhythm is sinus. His anticoagulants are still on hold. Objective - Vital Signs Vital signs: Vital Signs Temp 98.7 F 12/21/22 04:00 Pulse 86 12/21/22 07:00 Resp 18 12/21/22 07:00 BP 157/66 12/21/22 07:00 Pulse Ox 98 12/21/22 07:00 FiO2 Intake & Output 12/20/22 12/21/22 12/21/22 18:59 06:59 18:59 Intake Total 1150 900 75 Output Total 2950 1605 175 Balance -1800 -705 -100 Weight 98 kg Intake: IV 825 900 75 Sodium Chloride 0.9% 1, 825 900 75 000 ml @ 75 mls/hr IV . [id number] [facility], [facility]1983 Rx#:[id number] Oral 25 Hemodialysis 300 Output: Urine 1650 1605 175 Hemodialysis 1300 Other: Voiding Method Indwelling Catheter Indwelling Catheter - Exam GENERAL EXAM: Alert and disoriented, 77-year-old male , fairly comfortable in no apparent distress. 2 liters/min HEAD: Normocephalic and atraumatic EYES: Normal reaction of pupils, equal size. NOSE: Clear with pink turbinates. THROAT: No erythema or exudates. NECK: No masses, no JVD. CHEST: No chest wall deformity. LUNGS: Equal air entry with no crackles, wheeze, rhonchi or dullness. On room air. No conversational dyspnea or accessory muscle use.. CVS: S1 and S2 normal with no audible murmur, regular rhythm. No extra heart sounds ABDOMEN: No hepatosplenomegaly, active bowel sounds, no guarding or rigidity. No abdominal bruising or distention. SPINE: No scoliosis or deformity SKIN: No rashes. Bilateral legs are edematous and dry/flaky CENTRAL NERVOUS SYSTEM: Patient is oriented to self and in place. Able to follow simple instructions. No focal deficits, tone is normal in all 4 extremities. EXTREMITIES: There is 2+ bilateral lower extremity edema. No clubbing, or cyanosis. Peripheral pulses are intact. - Labs CBC & Chem 7: 12/21/22 05:06 12/21/22 05:06 Labs: Abnormal Lab Results - Last 24 Hours (Table) 12/20/22 12/20/22 12/20/22 Range/Units 11:12 16:19 20:28 RBC (4.30-5.90) m/uL Hgb (13.0-17.5) gm/dL Hct (39.0-53.0) % Sodium (137-145) mmol/L BUN (9-20) mg/dL Creatinine (0.66-1.25) mg/dL Glucose (74-99) mg/dL POC Glucose (mg/dL) 144 H 120 H 130 H (70-110) mg/dL Calcium (8.4-10.2) mg/dL Phosphorus (2.5-4.5) mg/dL Total Protein (6.3-8.2) g/dL Albumin (3.5-5.0) g/dL 12/21/22 12/21/22 12/21/22 Range/Units 05:06 05:06 06:13 RBC 3.20 L (4.30-5.90) m/uL Hgb 9.1 L (13.0-17.5) gm/dL Hct 28.0 L (39.0-53.0) % Sodium 136 L (137-145) mmol/L BUN 48 H (9-20) mg/dL Creatinine 5.30 H (0.66-1.25) mg/dL Glucose 137 H (74-99) mg/dL POC Glucose (mg/dL) 143 H (70-110) mg/dL Calcium 8.1 L (8.4-10.2) mg/dL Phosphorus 5.4 H (2.5-4.5) mg/dL Total Protein 5.6 L (6.3-8.2) g/dL Albumin 2.9 L (3.5-5.0) g/dL Microbiology - Last 24 Hours (Table) 12/19/22 05:21 Blood Culture - Preliminary Blood Assessment and Plan Assessment: Acute kidney injury/failure requiring emergent hemodialysis likely secondary to intravascular volume depletion, dehydration, and use of ar inhibitors and diuretics, post HD and the patient started making some urine output . The patient's last dialysis was done yesterday on 12/21/2022. Urine operas improving and currently is producing up to 150 mL an hour of urine output. He remains on normal saline at rate of 75 mL's an hour Severe metabolic anion gap acidosis and lactic acidosis, recovered and he is on NSS at 75 cc/hr Severe hyperkalemia, secondary to above, improving Acute metabolic encephalopathy, secondary to above regimen in an underlying dementia as the patient has been taken Aricept on outpatient basis. Could be a component of delirium also. Severe dehydration and reduced oral intake, improved Abdominal pain, CT of abdomen showed no acute intra-abdominal process. Chronic back pain Diabetes mellitus type 2 Hyperlipidemia Hypertension History of coronary artery disease and previous NH requiring heart catheterization and stents. History of paroxysmal atrial fibrillation, normally anticoagulated on warfarin, currently off warfarin and the cardiac rhythm is sinus Supratherapeutic INR, possible GI bleeding reported at home. No further episodes as inpatient Normocytic normochromic anemia Chronic obstructive pulmonary disease, stable Obesity, with a BMI of 31.2 kg/m Plan: Monitor urine output May not need dialysis today Monitor. Creatinine and renal function Monitor mental status Not absolutely sure that the patient is having significant back pain. His ability to provide history is quite limited because of his underlying encephalopathy. I will give him IV Tylenol. I will obtain x-ray of the lumbosacral spine I will obtain x-ray of his abdomen Keep warfarin on hold We'll continue to follow
[2022-12-21] MEDS: cloNIDine HCL 0.1 MG TAB PO SCH ×3 (08:52→20:01)
[2022-12-21] MEDS: amLODIPine 5 MG TAB PO SCH ×3 (08:52→20:02)
[2022-12-21] MEDS: METOPROLOL SUCCINATE (ER) 50 MG TAB.ER.24H PO SCH ×2 (08:52→09:50)
[2022-12-21] MEDS: hydrALAZINE HCL 50 MG TAB PO SCH ×4 (08:52→20:02)
[2022-12-21] MEDS ORDERED: ACETAMINOPHEN IV (For NPO) 1,000 MG in EMPTY BAG 1 BAG IVPB ONE (09:07)
--- NOTE | 2022-12-21 10:24 | XR ---
EXAM TYPE: LUMBAR SPINE X RAY SERIES COMPARISON: NONE HISTORY: Pain TECHNIQUE: One view are submitted. FINDINGS: Diffuse osteopenia. Multilevel degenerative disc disease and hypertrophic spurring. Dilated bowel loo ps are seen. A right-sided vascular catheter is seen extending to the level of the upper sacrum. Vasc ular calcifications noted. SI joints symmetric. IMPRESSION: 1. Diffuse osteopenia with multilevel degenerative change. 2. Dilated bowel loops correlate for ileus or obstruction.
--- NOTE | 2022-12-21 10:52 | XR ---
EXAMINATION TYPE: XR abdomen 1V DATE OF EXAM: 12/21/2022 COMPARISON: CT scan 12/18/2022 HISTORY: Pain TECHNIQUE: One view abdominal series FINDINGS: The osseous structures are intact. The bowel gas pattern is nonspecific. No dilated bowel loops are noted. There is arthropathy of the hips and degenerative changes spine. Right-sided vascular sheath o r line noted. Bibasilar subsegmental atelectasis. IMPRESSION: 1. Dilated bowel loop in the abdomen correlate for obstruction.
--- NOTE | 2022-12-21 11:01 | XR ---
EXAMINATION TYPE: XR chest 1V portable DATE OF EXAM: 12/21/2022 COMPARISON: 12/19/2022 HISTORY: Assess fluid status TECHNIQUE: Single frontal view of the chest is obtained. FINDINGS: There is interval improvement in the interstitium. The basilar subsegmental consolidation with limited inspiration. No sizable pleural effusion or pneumothorax. Heart size mildly prominent st able. Atherosclerotic change aorta. Hypertrophic and degenerative change of the spine. IMPRESSION: 1. Interval marked improvement in the interstitium suggestive of resolving venous congestion or inter stitial pneumonitis. 2. Favor basilar atelectasis over infiltrate.
--- NOTE | 2022-12-21 11:12 | P.PN ---
Subjective Patient is seen in follow-up for acute kidney injury. Started on hemodialysis 12/19/2022. Creatinine 5.3 today. Urine output over 100 mL an hour. On nasal cannula. Vital signs are stable. General: No acute distress. HEENT: Head exam is unremarkable. On nasal cannula. LUNGS: No audible rhonchi or wheezes. HEART: Rate and Rhythm are regular. ABDOMEN: Nontender. Distention noted. EXTREMITITES: Chronic changes noted. Trace edema. Objective - Vital Signs Vital signs: Vital Signs Temp 98.7 F 12/21/22 04:00 Pulse 79 12/21/22 11:00 Resp 17 12/21/22 11:00 BP 164/69 12/21/22 11:00 Pulse Ox 97 12/21/22 11:00 FiO2 Intake & Output 12/20/22 12/21/22 12/21/22 18:59 06:59 18:59 Intake Total 1150 900 400 Output Total 2950 1605 475 Balance -1800 -705 -75 Weight 98 kg 98 kg Intake: IV 825 900 400 ACETAMINOPHEN IV (For NPO 100 ) 1,000 mg In Empty Bag 1 bag @ 400 mls/hr IVPB ONCE ONE Rx#:[id number] Sodium Chloride 0.9% 1, 825 900 300 000 ml @ 75 mls/hr IV . [id number] [facility] Rx#:[id number] Oral 25 Hemodialysis 300 Output: Urine 1650 1605 475 Hemodialysis 1300 Other: Voiding Method Indwelling Catheter Indwelling Catheter - Labs CBC & Chem 7: 12/21/22 05:06 12/21/22 05:06 Labs: Abnormal Lab Results - Last 24 Hours (Table) 12/20/22 12/20/22 12/20/22 Range/Units 11:12 16:19 20:28 RBC (4.30-5.90) m/uL Hgb (13.0-17.5) gm/dL Hct (39.0-53.0) % Sodium (137-145) mmol/L BUN (9-20) mg/dL Creatinine (0.66-1.25) mg/dL Glucose (74-99) mg/dL POC Glucose (mg/dL) 144 H 120 H 130 H (70-110) mg/dL Calcium (8.4-10.2) mg/dL Phosphorus (2.5-4.5) mg/dL Total Protein (6.3-8.2) g/dL Albumin (3.5-5.0) g/dL 12/21/22 12/21/22 12/21/22 Range/Units 05:06 05:06 06:13 RBC 3.20 L (4.30-5.90) m/uL Hgb 9.1 L (13.0-17.5) gm/dL Hct 28.0 L (39.0-53.0) % Sodium 136 L (137-145) mmol/L BUN 48 H (9-20) mg/dL Creatinine 5.30 H (0.66-1.25) mg/dL Glucose 137 H (74-99) mg/dL POC Glucose (mg/dL) 143 H (70-110) mg/dL Calcium 8.1 L (8.4-10.2) mg/dL Phosphorus 5.4 H (2.5-4.5) mg/dL Total Protein 5.6 L (6.3-8.2) g/dL Albumin 2.9 L (3.5-5.0) g/dL Microbiology - Last 24 Hours (Table) 12/19/22 05:21 Blood Culture - Preliminary Blood Assessment and Plan Plan: Assessment: 1. Acute kidney injury secondary to ATN worsened with the use of Lasix and lisinopril. Creatinine 9.45 on admission. Creatinine 1.29 in December 2021. No hydronephrosis noted on imaging. UA fairly benign. Started on hemodialysis 12/19/2022. Nonoliguric. 2. Metabolic acidosis secondary to acute kidney injury, lactic acidosis from metformin. Improved with dialysis and bicarb drip. 3. Hyperkalemia secondary to acute kidney injury, lisinopril. Improved with medical management and dialysis. Resolved. 4. Diabetes mellitus. 5. Benign hypertension. 6. Coronary disease with prior stenting. 7. Hyperphosphatemia secondary to acute kidney injury. On PhosLo. Phosphorus level V.4 today. Plan: Hold off on dialysis today. Decrease rate of normal saline to 50 mL an hour. Avoid nephrotoxins. Follow-up abdominal x-ray. Consider surgery eval. Follow-up serologies. Negative so far. Monitor for renal recovery. Continue to assess daily for need for renal replacement therapy. Increase hydralazine to 50 mg 3 times a day.
[2022-12-21 11:55] LABS: Glucose,Whole Blood 170 mg/dL (70-110)
--- NOTE | 2022-12-21 12:02 | P.PN ---
Subjective Progress Note Date: 12/21/22 Principal diagnosis: Abdominal pain, GI bleed This is a 77-year-old male with a past medical history including COPD, diabetes mellitus, hyperlipidemia, hypertension, myocardial infarction, coronary artery disease status post stenting on warfarin, and remote history of alcohol abuse who presented to the emergency department with confusion, weakness, and complaints of abdominal pain. Patient was admitted to the ICU with acute kidney injury requiring hemodialysis, supratherapeutic INR of 5.4, lactic acidosis and altered mental status changes. Patient currently is awake and alert, seems somewhat confused. States he has no abdominal pain at this time. States he was having abdominal pain for about 2 days prior to coming into the emergency department. He denied any nausea or vomiting. Nursing reports he has not had a bowel movement since being hospitalized. They do report that the stated yesterday he was having some dark stool and therefore gastroenterology was consulted for GI bleed. Again patient denies any black stools nursing as stating he has not had any bowel movements. He had a [place] catheter placed this morning with bright red bloody urine. He did have mild elevation of his lipase is well at 430. Patient is a poor historian at this time. Warfarin is currently on hold and patient being administered vitamin K. He had a CT of the abdomen and pelvis showing no acute findings. 12/20/2022 Patient seen and examined as a follow-up. Patient remains in the ICU. Patient was resting, states he is very tired he wants to be left alone. No reported bowel movement or signs of GI bleed. WBC 10.8 Hemoglobin 9.5 platelet count 252,010 are 1.6 sodium 139 potassium 5.4 BUN 80 creatinine 7.35. He is scheduled for hemodialysis again today. Urine is clear today. 12/21/2022 Patient seen and examined in the ICU. Complaining of back pain. He is undergoing abdominal and back x-ray. He denies any nausea or vomiting. He has not had any further bowel movements and no rectal bleeding noted. Hemoglobin is stable at 9.1. He has been undergoing hemodialysis. WBC 10.5 hemoglobin 9.1 platelet count 215,000 sodium 136 potassium 4.9 BUN 48 creatinine 5.3, total bilirubin 0.8 AST 20 3ALT 15 alkaline phosphatase 49 Objective - Vital Signs Vital signs: Vital Signs Temp 98.7 F 12/21/22 04:00 Pulse 96 12/21/22 09:00 Resp 16 12/21/22 09:00 BP 189/74 12/21/22 09:00 Pulse Ox 98 12/21/22 09:00 FiO2 Intake & Output 12/20/22 12/21/22 12/21/22 18:59 06:59 18:59 Intake Total 1150 900 225 Output Total 2950 1605 425 Balance -1800 -705 -200 Weight 98 kg Intake: IV 825 900 225 Sodium Chloride 0.9% 1, 825 900 225 000 ml @ 75 mls/hr IV . [id number] [facility] Rx#:[id number] Oral 25 Hemodialysis 300 Output: Urine 1650 1605 425 Hemodialysis 1300 Other: Voiding Method Indwelling Catheter Indwelling Catheter - Exam General appearance: The patient is alert, oriented, appears in no acute distress. HET: Head is normocephalic and atraumatic. Conjunctiva pink. Sclera anicteric. Neck: Supple without lymphadenopathy. Abdomen: Soft, obese, nontender, mild distention. No guarding or rigidity. Extremities: Normal skin color and turgor. No pedal edema Skin: No rashes, no jaundice Neurological: No focal deficits. Alert and oriented. - Labs CBC & Chem 7: 12/21/22 05:06 12/21/22 05:06 Labs: Abnormal Lab Results - Last 24 Hours (Table) 12/20/22 12/20/22 12/20/22 Range/Units 11:12 16:19 20:28 RBC (4.30-5.90) m/uL Hgb (13.0-17.5) gm/dL Hct (39.0-53.0) % Sodium (137-145) mmol/L BUN (9-20) mg/dL Creatinine (0.66-1.25) mg/dL Glucose (74-99) mg/dL POC Glucose (mg/dL) 144 H 120 H 130 H (70-110) mg/dL Calcium (8.4-10.2) mg/dL Phosphorus (2.5-4.5) mg/dL Total Protein (6.3-8.2) g/dL Albumin (3.5-5.0) g/dL 12/21/22 12/21/22 12/21/22 Range/Units 05:06 05:06 06:13 RBC 3.20 L (4.30-5.90) m/uL Hgb 9.1 L (13.0-17.5) gm/dL Hct 28.0 L (39.0-53.0) % Sodium 136 L (137-145) mmol/L BUN 48 H (9-20) mg/dL Creatinine 5.30 H (0.66-1.25) mg/dL Glucose 137 H (74-99) mg/dL POC Glucose (mg/dL) 143 H (70-110) mg/dL Calcium 8.1 L (8.4-10.2) mg/dL Phosphorus 5.4 H (2.5-4.5) mg/dL Total Protein 5.6 L (6.3-8.2) g/dL Albumin 2.9 L (3.5-5.0) g/dL Microbiology - Last 24 Hours (Table) 12/19/22 05:21 Blood Culture - Preliminary Blood Assessment and Plan (1) Abdominal pain Narrative/Plan: 77-year-old male presented to the emergency department yesterday with family for concerns for confusion, weakness, and complaints of abdominal pain for the last 2-3 days duration. Patient was noted to be in acute renal failure, lactic acidosis and supratherapeutic INR. Patient on warfarin for coronary artery disease which is currently on hold and being treated with vitamin K. Reportedly the had reported patient was having dark stool at home however patient denies any blood in his stool or black stool. He also states abdominal pain has resolved. He had a CT abdomen and pelvis without any acute findings. He did have mild elevation in his amylase and lipase, 182 and 485 respectively. Unclear if he has a history of pancreatitis in the past. Patient is somewhat of a poor historian. He does admit to significant history of alcohol abuse but states he quit several years ago. Unclear etiology at this time of abdominal pain could've been mild uncomplicated pancreatitis however pain has resolved. Nursing is reporting no signs of GI blood loss. Hemoglobin is stable. I recommend treating supratherapeutic INR. Patient is also having gross hematuria. We will continue to monitor at this time, recommend protonic 40 mg daily. For GI prophylaxis. No plans on endoscopic evaluation at this time. Patient continues to have no evidence of GI blood loss at this time. Due to multiple comorbidities will continue to hold off on endoscopic evaluation unless patient has active bleeding. Discussed with outpatient follow-up for EGD and colonoscopy when patient stabilizes. Current Visit: Yes Status: Acute Code(s): R10.9 - UNSPECIFIED ABDOMINAL PAIN SNOMED Code(s): 06296722 (2) Melena Narrative/Plan: states patient had a maroon colored stool prior to coming to the hospital. And about 4 days prior patient had some bright red blood noted in his stool. No previous history of EGD or colonoscopy. No further bleeding noted since patient has been here to the hospital. Will plan for outpatient follow-up to schedule endoscopic evaluation unless patient continues to have blood in his stool. Current Visit: Yes Status: Acute Code(s): K92.1 - MELENA SNOMED Code(s): 7359263 (3) Supratherapeutic INR Narrative/Plan: Improved Current Visit: Yes Status: Acute Code(s): R79.1 - ABNORMAL COAGULATION PROFILE SNOMED Code(s): 263649336 (4) ESDRAS (acute kidney injury) Narrative/Plan: On renal replacement therapy Current Visit: Yes Status: Acute Code(s): N17.9 - ACUTE KIDNEY FAILURE, UNSPECIFIED SNOMED Code(s): 87481231 (5) Hyperkalemia Current Visit: Yes Status: Acute Code(s): E87.5 - HYPERKALEMIA SNOMED Code(s): 65651090 (6) Renal failure Current Visit: Yes Status: Acute Code(s): N19 - UNSPECIFIED KIDNEY FAILURE SNOMED Code(s): 61160075 (7) CAD (coronary artery disease) Current Visit: No Status: Acute Code(s): I25.10 - ATHSCL HEART DISEASE OF [place] CORONARY ARTERY W/O ANG PCTRS SNOMED Code(s): 41746938 (8) Diabetes Current Visit: No Status: Acute Code(s): E11.9 - TYPE 2 DIABETES MELLITUS WITHOUT COMPLICATIONS SNOMED Code(s): 51405787 (9) Gross hematuria Narrative/Plan: Improved Current Visit: Yes Status: Acute Code(s): R31.0 - GROSS HEMATURIA SNOMED Code(s): 428449653 Plan: 1. Continue symptomatic and supportive care 2. Advance diet as tolerated 3. Protonix 40 mg daily for GI prophylaxis 4. Monitor for symptoms of GI bleed 5. May resume anticoagulation 6. No plans on endoscopic evaluation at this time. Recommend outpatient follow-up for endoscopic evaluation. Thank you for this consultation, we will continue to follow. Dr. Radha Dickey I agree with the dictator's note, documented as a scribe by Blessing Bernal.
[2022-12-21 16:46] LABS: Glucose,Whole Blood 175 mg/dL (70-110)
[2022-12-21 19:40] LABS: Glucose,Whole Blood 174 mg/dL (70-110)
[2022-12-21] MEDS: ATORVASTATIN 80 MG TAB PO SCH (20:02)
--- NOTE | 2022-12-21 20:51 | P.PN ---
Subjective Progress Note Date: [facility]21/22 [facility] Patient is a 77-year-old male with COPD, diabetes, hypertension, dyslipidemia, prior myocardial infarction who presented to the emergency department due to abdominal pain and altered mentation. On arrival to the emergency department his vital signs within normal limits. Laboratory analysis was remarkable for white blood cell count 11.2, hemoglobin 10.5, potassium 8.8, carbon dioxide 9, BUN 132, creatinine 9.45, lactic acid 6.4, and lipase 485. He was also noted to have EKG changes significant for hyperkalemia. CT abdomen and pelvis shows no acute abdominal process. Chest x-ray shows no acute process. Patient was subsequently admitted to the ICU and arrangements were made for emergent dialysis. Pulmonary, vascular surgery, and nephrology were consulted. Vascular surgery placed a temporary dialysis catheter in the right groin. Patient s ubsequently underwent emergent hemodialysis. He had a renal and bladder ultrasound completed which showed no hydronephrosis or nephrolithiasis. He was seen by gastroenterology who recommended reversal of his INR and continued monitoring without immediate plans for endoscopy. Seen and examined at bedside with present. He is now denying any abdominal pain, nausea, vomiting, or back pain. Vital signs reviewed General: ill appearing, no distress, appears at stated age Cardiovascular: S1S2 reg, no murmur, positive posterior tibial pulse bilateral, Lungs: Decreased bs b/l bilateral, no rhonchi, no rales , no accessory muscle use Abdominal: soft, distended nontender to palpation, no guarding, no appreciable organomegaly Ext: no gross muscle atrophy, no edema b/l lower extremities, no contractures Neuro: CN II-XI grossly intact, no focal neuro deficits Psych: Alert, oriented to place, month, self- year 2002, appropriate affect Assessment/Plan: Acute kidney injury Anion gap metabolic acidosis Toxic metabolic encephalopathy Hyperphosphatemia Hypocalcemia Aneima, acute blood loss - Nephrology note reviewed from today continue continue to hold off on dialysis, decrease normal saline at 50 mL/h - s/p 1 round of HD -GI note reviewed from today: Continue with Protonix, no plans for endoscopic evaluation. Will need outpatient follow-up. -Critical care note reviewed: X-ray of the lumbar spine and abdomen ordered. - PhosLo 667 mg oral with each meal - Safe and supportive environment - Hold Lasix 20 mg daily and lisinopril 20 mg twice daily - Follow basic metabolic profile for renal recovery - Follow urine output for signs of renal recovery - aricept on hold Abdominal distention secondary to ileus versus obstruction -Consult surgery -Continue with clear liquid diet -Instructed nursing to call if patient developes vomiting as he will need a nasogastric tube Abdominal pain with melena -GI consultation reviewed: Have been held patient being treated with vitamin K. -Continue with Protonix 40 mg IV daily Supratherapeutic INR - improved - Patient received vitamin K 5 mg IV piggyback 1 on 12/19 -Warfarin on hold - resume coumadin in AM Diabetes mellitus type II - A1C 8 -Continue with sliding scale -Follow blood sugars -Hold glipizide, metformin, and Lantus 30 units Hyperkalemia, resolved Chronic conditions: COPD, CAD, HTN, HLD, paroxysmal AFib Imaging: Chest [id number] improvement in the interstitial congestion Abdominal x-ray: Dilated bowel loops correlate for obstruction Lumbar spine x-ray: Diffuse osteopenia with multifocal degenerative changes, dilated bowel loops correlate for ileus versus obstruction Hospital course imaging: Renal and bladder ultrasound: no hydronephrosis or nephrolithiasis Data Review: Labs recently include CBC and CMP which are remarkable for hemoglobin 9.1, sodium 136, BUN 48, creatinine 5.3 ironstudie reviewed and normal DVT prophylaxis: Start heparin 5000 units 3 times daily Anticipated discharge date: Pending Clinical Course Anticipated discharge place: Pending Clinical Course This dictation was prepared using [employer] voice recognition software. Though every attempt is made to correct errors during dictation some may still exist. Objective - Vital Signs Vital signs: Vital Signs Temp 97.3 F L 12/21/22 19:53 Pulse 82 12/21/22 19:53 Resp 20 12/21/22 19:53 BP 167/70 12/21/22 19:53 Pulse Ox 98 12/21/22 19:53 FiO2 Intake & Output 12/21/22 12/21/22 12/22/22 06:59 18:59 06:59 Intake Total 900 800 Output Total 1605 1175 Balance -705 375 Weight 98 kg 98 kg Intake: IV 900 800 ACETAMINOPHEN IV (For NPO 100 ) 1,000 mg In Empty Bag 1 bag @ 400 mls/hr IVPB ONCE ONE Rx#:[id number] Sodium Chloride 0.9% 1, 900 700 000 ml @ 75 mls/hr IV . [id number] [facility] Rx#:[id number] Output: Urine 1605 1175 Other: Voiding Method Indwelling Catheter Indwelling Catheter Indwelling Catheter - Labs CBC & Chem 7: 12/21/22 05:06 12/21/22 05:06 Labs: Abnormal Lab Results - Last 24 Hours (Table) 12/21/22 12/21/22 12/21/22 Range/Units 05:06 05:06 06:13 RBC 3.20 L (4.30-5.90) m/uL Hgb 9.1 L (13.0-17.5) gm/dL Hct 28.0 L (39.0-53.0) % Sodium 136 L (137-145) mmol/L BUN 48 H (9-20) mg/dL Creatinine 5.30 H (0.66-1.25) mg/dL Glucose 137 H (74-99) mg/dL POC Glucose (mg/dL) 143 H (70-110) mg/dL Calcium 8.1 L (8.4-10.2) mg/dL Phosphorus 5.4 H (2.5-4.5) mg/dL Total Protein 5.6 L (6.3-8.2) g/dL Albumin 2.9 L (3.5-5.0) g/dL 12/21/22 12/21/22 12/21/22 Range/Units 11:43 16:45 19:34 RBC (4.30-5.90) m/uL Hgb (13.0-17.5) gm/dL Hct (39.0-53.0) % Sodium (137-145) mmol/L BUN (9-20) mg/dL Creatinine (0.66-1.25) mg/dL Glucose (74-99) mg/dL POC Glucose (mg/dL) 170 H 175 H 174 H (70-110) mg/dL Calcium (8.4-10.2) mg/dL Phosphorus (2.5-4.5) mg/dL Total Protein (6.3-8.2) g/dL Albumin (3.5-5.0) g/dL Microbiology - Last 24 Hours (Table) 12/19/22 05:21 Blood Culture - Preliminary Blood
[2022-12-21] MEDS: MORPHINE SULFATE 2 MG/ML SYRINGE IVP PRN (22:41)
[2022-12-22 05:51] LABS: Glucose,Whole Blood 205 mg/dL (70-110)
[2022-12-22] MEDS: SODIUM CHLORIDE 0.9% 1,000 ML IV SCH (06:20)
[2022-12-22] MEDS: CALCIUM ACETATE 667 MG TAB PO SCH ×3 (06:36→18:36)
[2022-12-22] MEDS: INSULIN ASPART (NovoLOG) 100 UNIT/ML VIAL SQ SCH ×4 (06:36→21:07)
[2022-12-22] MEDS ORDERED: ACETAMINOPHEN IV (For NPO) 1,000 MG in EMPTY BAG 1 BAG IVPB ONE (08:24)
[2022-12-22] MEDS: PANTOPRAZOLE 40 MG/10 ML VIAL IV SCH (09:23)
[2022-12-22] MEDS: amLODIPine 5 MG TAB PO SCH ×2 (09:24→21:06)
[2022-12-22] MEDS: hydrALAZINE HCL 50 MG TAB PO SCH ×3 (09:24→21:06)
[2022-12-22] MEDS: METOPROLOL SUCCINATE (ER) 50 MG TAB.ER.24H PO SCH (09:24)
[2022-12-22] MEDS: cloNIDine HCL 0.1 MG TAB PO SCH ×2 (09:24→21:06)
--- NOTE | 2022-12-22 09:37 | XR ---
EXAMINATION TYPE: XR abdomen acute w cxr DATE OF EXAM: 12/22/2022 COMPARISON: 12/21/2022 HISTORY: Pain TECHNIQUE: Supine, upright, and left side down lateral decubitus views of the abdomen are obtained. FINDINGS: Limited inspiration with bibasilar subsegmental consolidation. Atherosclerotic change aorta. No pneum othorax. Multiple dilated bowel loops. Arthropathy of the hips and degenerative changes spine. Vascular calcif ications and vascular catheter noted in the pelvis. IMPRESSION: 1. Persistent dilated bowel loops correlate for obstruction. 2. Right basilar atelectasis versus infiltrate.
[2022-12-22 09:46] LABS: HCT 29.3 % (39.0-53.0); HGB 9.3 gm/dL (13.0-17.5); MCH 28.1 pg (25.0-35.0); MCHC 31.6 g/dL (31.0-37.0); Mean Platelet Volume 8.4; Platelet Count 218 k/uL (150-450); RBC 3.29 m/uL (4.30-5.90); RDW 14.5 % (11.5-15.5); WBC 14.4 k/uL (3.8-10.6)
[2022-12-22 09:51] LABS: INR 1.1 (<1.2); Prothrombin Time 11.4 sec (10.0-12.5)
[2022-12-22 09:55] LABS: African American GFR (CKD) 12 (>60 ml/min/1.73 sqM); Anion Gap 15 mmol/L; Blood Urea Nitrogen 47 mg/dL (9-20); Calcium 8.7 mg/dL (8.4-10.2); Carbon Dioxide 19 mmol/L (22-30); Chloride 105 mmol/L (98-107); Glucose 135 mg/dL (74-99); Non-African American GFR(CKD) 10 (>60 ml/min/1.73 sqM); Potassium 4.6 mmol/L (3.5-5.1); Sodium 139 mmol/L (137-145)
--- NOTE | 2022-12-22 11:07 | P.PN ---
Subjective Patient is seen in follow-up for acute kidney injury. Started on hemodialysis 12/19/2022. last dialysis 12/20/2022. Creatinine 5.09 today. nonoliguric. Vital signs are stable. General: No acute distress. HEENT: Head exam is unremarkable. On nasal cannula. LUNGS:scattered rhonchi. HEART: Rate and Rhythm are regular. ABDOMEN: Nontender. Distention noted. EXTREMITITES: Chronic changes noted. Trace edema. Objective - Vital Signs Vital signs: Vital Signs Temp 98.6 F 12/22/22 09:20 Pulse 105 H 12/22/22 09:20 Resp 22 12/22/22 09:20 BP 152/73 12/22/22 09:20 Pulse Ox 93 L 12/22/22 09:20 FiO2 Intake & Output 12/21/22 12/22/22 12/22/22 18:59 06:59 18:59 Intake Total 800 Output Total 1175 200 425 Balance -375 -200 -425 Weight 98 kg 94.5 kg Intake: IV 800 ACETAMINOPHEN IV (For NPO 100 ) 1,000 mg In Empty Bag 1 bag @ 400 mls/hr IVPB ONCE ONE Rx#:[id number] Sodium Chloride 0.9% 1, 700 000 ml @ 75 mls/hr IV . [id number] [facility] Rx#:[id number] Output: Urine 1175 200 425 Other: Voiding Method Indwelling Catheter Indwelling Catheter - Labs CBC & Chem 7: 12/22/22 08:40 12/22/22 08:40 Labs: Abnormal Lab Results - Last 24 Hours (Table) 12/21/22 12/21/22 12/21/22 Range/Units 11:43 16:45 19:34 WBC (3.8-10.6) k/uL RBC (4.30-5.90) m/uL Hgb (13.0-17.5) gm/dL Hct (39.0-53.0) % Carbon Dioxide (22-30) mmol/L BUN (9-20) mg/dL Creatinine (0.66-1.25) mg/dL Glucose (74-99) mg/dL POC Glucose (mg/dL) 170 H 175 H 174 H (70-110) mg/dL 12/22/22 12/22/22 12/22/22 Range/Units 05:47 08:40 08:40 WBC 14.4 H (3.8-10.6) k/uL RBC 3.29 L (4.30-5.90) m/uL Hgb 9.3 L (13.0-17.5) gm/dL Hct 29.3 L (39.0-53.0) % Carbon Dioxide 19 L (22-30) mmol/L BUN 47 H (9-20) mg/dL Creatinine 5.09 H (0.66-1.25) mg/dL Glucose 135 H (74-99) mg/dL POC Glucose (mg/dL) 205 H (70-110) mg/dL Microbiology - Last 24 Hours (Table) 12/19/22 05:21 Blood Culture - Preliminary Blood Assessment and Plan Plan: Assessment: 1. Acute kidney injury secondary to ATN worsened with the use of Lasix and lisinopril. Creatinine 9.45 on admission. Creatinine 1.29 in December 2021. No hydronephrosis noted on imaging. UA fairly benign. Started on hemodialysis 12/19/2022. Last dialysis 12/20/2022. Nonoliguric. 2. Metabolic acidosis secondary to acute kidney injury, lactic acidosis from metformin. Improved with dialysis and bicarb drip. 3. Hyperkalemia secondary to acute kidney injury, lisinopril. Improved with medical management and dialysis. Resolved. 4. Diabetes mellitus. 5. Benign hypertension. 6. Coronary disease with prior stenting. 7. Hyperphosphatemia secondary to acute kidney injury. On PhosLo. Phosphorus level 5.4 dated 12/21/2022. 8. Volume overload. 9. Possible bowel obstruction. Surgery following. Plan: Hep-Lock IV fluids. Hemodialysis today with goal 2 liters ultrafiltration. Lasix 60 mg IV once today. Check chest x-ray. Avoid nephrotoxins. Follow-up serologies. Negative so far. Monitor for renal recovery. Increase dose of hydralazine. Continue to assess daily for need for renal replacement therapy.
[2022-12-22 11:21] LABS: Glucose,Whole Blood 179 mg/dL (70-110)
--- NOTE | 2022-12-22 12:16 | P.PN ---
Subjective Progress Note Date: 12/22/22 I am seeing this patient in new consultation today 12/19/2022 in the intensive care unit after the patient presented to the emergency room yesterday evening altered and very weak. He was found to be in acute renal failure and started on emergent hemodialysis. Patient is a 77-year-old white male with past medical history significant for diabetes mellitus, hyperlipidemia, hypertension, coronary artery disease with previous stents, paroxysmal atrial fibrillation anticoagulated on warfarin, COPD, and lower extremity cellulitis. Patient reportedly received treatment for bilateral lower extremity cellulitis on outpatient basis within the last month or so. Patient's unsure of the antibiotic, may have been on Bactrim. Patient is currently confused, and overall a poor historian. I did call the patient's who states that over the last 2 weeks he has not been eating or drinking much. He's been very weak and confused. On arrival to the emergency room yesterday evening the patient was fou nd to be in acute renal failure. He was severely acidotic and hyperkalemic with a potassium of 9.45. There were EKG related changes with bradycardia and widening of the QRS complex. Patient was treated twice with a k cocktail including calcium gluconate, D50W, regular insulin, albuterol, and 2 A of sodium bicarb. Patient also received a dose Lokelma. A femoral hemodialysis catheter was placed by vascular surgery, and the patient is currently undergoing emergent hemodialysis. Patient was admitted to the intensive care unit. He is currently lying in bed, on room air, in no acute distress. Blood pressure normotensive, not on any vasopressors. 3 amps sodium bicarbonate in D5W is infusing at 100 ML's per hour. Heart rhythm currently normal sinus with rate of 80 bpm. Chest x-ray on arrival showed no acute cardiopulmonary process. CBC on arrival showed some mild leukocytosis with a WBC count of 11.2, hemoglobin 10.5, hematocrit 32.7, platelets 317. CMP on arrival showed a sodium 136, potassium 8.8, chloride 103, serum bicarbonate 9, anion gap 24, BUN 132, creatinine 9.45, glucose 247. Lactic acid was elevated at 6.4 and is down to 5.3. Urinalysis not concerning for UTI. Lipase mildly elevated at 485. LFTs not elevated. Patient is reporting some mild abdominal pain with palpation. No nausea or vomiting. Non-jaundiced. INR supratherapeutic at 4.6. reports that the patient had burgundy-colored loose stools at home. No further bloody stools or melena reported by nursing staff. CT of abdomen and pelvis without contrast did not show any acute abdominal process. No obstructive uropathy. Afebrile. Patient is currently hemodynamically stable, and monitored on the intensive care unit. , On today's evaluation of 12/20/2022, the patient is awake and alert and c ommunicating. He is still feeling weak and fatigued. He is currently on oxygen at 2 L and his breathing is not labored at this point in time. As mentioned earlier, the patient presented to us with an acute kidney injury. He had significant electronic abnormalities including a significant hyperkalemia. He underwent hemodialysis yesterday and since yesterday the patient's urine operas improving and the patient is producing approximately 100 mL of urine output. His potassium level is down to 5.4. This is slightly elevated compared to yesterday where his potassium level was at 4.7. BUN is at 80 with a creatinine of 7.35. Otherwise, the 10.8 with a hemoglobin of 9.5 and a platelet count of 252. Ammonia level was less than 9. His lactic acid level has normalized. Blood sugar is currently at 78. The discomfort of 10.8 with a hemoglobin of 9.5. No hypotension. No hemodynamic instability. Nephrology is on the case. Possible hemodialysis today. He was provided some clear liquid diet. No focal neurological deficits. He remains afebrile. On 12/21/22, the patient is still confused. He is not consistent in his ability to provide history. He seems to be uncomfortable. Is complaining of some chronic back pain. His abdomen is also slightly distended. Nevertheless, the C AT scan of the abdomen and this was done at time of admission showed no evidence of any ileus or bowel obstruction and the bowel decompressed. He also had some chronic osteophytic changes in degenerative arthritis involving the thoracolumbar spine. The patient remains in renal failure although he has improved his urine output. Is producing approximately 100 mL of urine output and he has a Quezada catheter in place. His last hemodialysis session was done yesterday. His BUN is at 48 with a creatinine of 5.3. Potassium levels at 4.9. The visit 110.5 with a hemoglobin of 9.1 and a platelet count of 2:15. He remains on oxygen at 2 L with a pulse ox of 98%. He is afebrile. He is hemodynamically stable. He is on normal saline at rate of 75 mL an hour. His cardiac rhythm is sinus. His anticoagulants are still on hold. On 12/22/2022, the patient is being seen on the medical floor. The patient was transferred out of the intensive care unit yesterday. He is still having a failure. Is producing urine output. Nevertheless, the plan is to proceed with another session of hemodialysis today. His mental status is gradually improving. Slightly more alert compared to yesterday. His having episodes of confusion. He remains on Lasix 60 mg IV every 24 hours. No chest pain. He was complaining of back pain which has subsided. He was found to have some abdominal distention and the patient had a repeat set of the abdomen that shows persistent dilated bowels and bowel loops. He has hypoactive bowel sounds. Nephrology is on the case. The patient is going to undergo hemodialysis with a total of 2 L of ultrafiltration. His labs showed evidence of 14.4 with a hemoglobin of 9.3, BUN is at 47 with a creatinine of 5.09 and a potassium level of 4.6 and sodium levels is 139. He is on 2 L of oxygen nasal cannula and his pulse ox is around 93% Objective - Vital Signs Vital signs: Vital Signs Temp 98.6 F 12/22/22 09:20 Pulse 105 H 12/22/22 09:20 Resp 22 12/22/22 09:20 BP 152/73 12/22/22 09:20 Pulse Ox 93 L 12/22/22 09:20 FiO2 Intake & Output 12/21/22 12/22/22 12/22/22 18:59 06:59 18:59 Intake Total 800 Output Total 1175 200 Balance -375 -200 Weight 98 kg 94.5 kg Intake: IV 800 ACETAMINOPHEN IV (For NPO 100 ) 1,000 mg In Empty Bag 1 bag @ 400 mls/hr IVPB ONCE ONE Rx#:[id number] Sodium Chloride 0.9% 1, 700 000 ml @ 75 mls/hr IV . [id number] [facility] Rx#:[id number] Output: Urine 1175 200 Other: Voiding Method Indwelling Catheter Indwelling Catheter - Exam GENERAL EXAM: Alert and disoriented, 77-year-old male , fairly comfortable in no apparent distress. 2 liters/min HEAD: Normocephalic and atraumatic EYES: Normal reaction of pupils, equal size. NOSE: Clear with pink turbinates. THROAT: No erythema or exudates. NECK: No masses, no JVD. CHEST: No chest wall deformity. LUNGS: Equal air entry with no crackles, wheeze, rhonchi or dullness. On room air. No conversational dyspnea or accessory muscle use.. CVS: S1 and S2 normal with no audible murmur, regular rhythm. No extra heart sounds ABDOMEN: No hepatosplenomegaly, active bowel sounds, no guarding or rigidity. No abdominal bruising or distention. SPINE: No scoliosis or deformity SKIN: No rashes. Bilateral legs are edematous and dry/flaky CENTRAL NERVOUS SYSTEM: Patient is oriented to self and in place. Able to follow simple instructions. No focal deficits, tone is normal in all 4 extremities. EXTREMITIES: There is 2+ bilateral lower extremity edema. No clubbing, or c yanosis. Peripheral pulses are intact. - Labs CBC & Chem 7: 12/22/22 08:40 12/22/22 08:40 Labs: Abnormal Lab Results - Last 24 Hours (Table) 12/21/22 12/21/22 12/21/22 Range/Units 11:43 16:45 19:34 WBC (3.8-10.6) k/uL RBC (4.30-5.90) m/uL Hgb (13.0-17.5) gm/dL Hct (39.0-53.0) % Carbon Dioxide (22-30) mmol/L BUN (9-20) mg/dL Creatinine (0.66-1.25) mg/dL Glucose (74-99) mg/dL POC Glucose (mg/dL) 170 H 175 H 174 H (70-110) mg/dL 12/22/22 12/22/22 12/22/22 Range/Units 05:47 08:40 08:40 WBC 14.4 H (3.8-10.6) k/uL RBC 3.29 L (4.30-5.90) m/uL Hgb 9.3 L (13.0-17.5) gm/dL Hct 29.3 L (39.0-53.0) % Carbon Dioxide 19 L (22-30) mmol/L BUN 47 H (9-20) mg/dL Creatinine 5.09 H (0.66-1.25) mg/dL Glucose 135 H (74-99) mg/dL POC Glucose (mg/dL) 205 H (70-110) mg/dL Microbiology - Last 24 Hours (Table) 12/19/22 05:21 Blood Culture - Preliminary Blood Assessment and Plan Assessment: Acute kidney injury/failure requiring emergent hemodialysis likely secondary to intravascular volume depletion, dehydration, and use of ar inhibitors and diuretics, post HD and the patient started making some urine output . The patient's last dialysis was done yesterday on 12/21/2022. Urine operas continues to improve and the patient is currently on Lasix 60 mg IV every 24 hours. The plan is to undergo another session of hemodialysis today Severe metabolic anion gap acidosis and lactic acidosis, recovered Severe hyperkalemia, secondary to above, improving Acute metabolic encephalopathy, secondary to above regimen in an underlying dementia as the patient has been taken Aricept on outpatient basis. Could be a component of delirium also. Severe dehydration and reduced oral intake, improved Abdominal pain, CT of abdomen showed no acute intra-abdominal process. He does have distended bowel loops. Rule out underlying ileus. Chronic back pain Diabetes mellitus type 2 Hyperlipidemia Hypertension History of coronary artery disease and previous MT requiring heart catheterization and stents. History of paroxysmal atrial fibrillation, normally anticoagulated on warfarin, currently off warfarin and the cardiac rhythm is sinus Supratherapeutic INR, possible GI bleeding reported at home. No further ep isodes as inpatient Normocytic normochromic anemia Chronic obstructive pulmonary disease, stable Obesity, with a BMI of 31.2 kg/m Plan: 1 undergo another session of hemodialysis today Monitor mental status as the patient has a metabolic encephalopathy which is gradually improving Monitor Creatinine and renal function Monitor mental status Clear liquid diet No signs on the case Anticipate further improvement in mental status with hemodialysis Keep warfarin on hold We'll continue to follow
[2022-12-22] MEDS: FUROSEMIDE 10 MG/ML 10 ML VIAL IV SCH (13:14)
--- NOTE | 2022-12-22 13:40 | P.PN ---
Subjective Progress Note Date: 12/22/22 Principal diagnosis: Abdominal pain, GI bleed This is a 77-year-old male with a past medical history including COPD, diabetes mellitus, hyperlipidemia, hypertension, myocardial infarction, coronary artery disease status post stenting on warfarin, and remote history of alcohol abuse who presented to the emergency department with confusion, weakness, and complaints of abdominal pain. Patient was admitted to the ICU with acute kidney injury requiring hemodialysis, supratherapeutic INR of 5.4, lactic acidosis and altered mental status changes. Patient currently is awake and alert, seems somewhat confused. States he has no abdominal pain at this time. States he was having abdominal pain for about 2 days prior to coming into the emergency department. He denied any nausea or vomiting. Nursing reports he has not had a bowel movement since being hospitalized. They do report that the stated yesterday he was having some dark stool and therefore gastroenterology was consulted for GI bleed. Again patient denies any black stools nursing as stating he has not had any bowel movements. He had a Quezada catheter placed this morning with bright red bloody urine. He did have mild elevation of his lipase is well at 430. Patient is a poor historian at this time. Warfarin is currently on hold and patient being administered vitamin K. He had a CT of the abdomen and pelvis showing no acute findings. 12/20/2022 Patient seen and examined as a follow-up. Patient remains in the ICU. Patient was resting, states he is very tired he wants to be left alone. No reported bowel movement or signs of GI bleed. WBC 10.8 Hemoglobin 9.5 platelet count 252,010 are 1.6 sodium 139 potassium 5.4 BUN 80 creatinine 7.35. He is scheduled for hemodialysis again today. Urine is clear today. 12/21/2022 Patient seen and examined in the ICU. Complaining of back pain. He is undergoing abdominal and back x-ray. He denies any nausea or vomiting. He has not had any further bowel movements and no rectal bleeding noted. Hemoglobin is stable at 9.1. He has been undergoing hemodialysis. WBC 10.5 hemoglobin 9.1 platelet count 215,000 sodium 136 potassium 4.9 BUN 48 creatinine 5.3, total bilirubin 0.8 AST 20 3ALT 15 alkaline phosphatase 49 12/22/2022 Patient seen and examined today as a follow-up. Patient states he has pain in his arms and legs. No abdominal pain. Patient refusing lab draw this morning. Nursing has reported no black stool. Objective - Vital Signs Vital signs: Vital Signs Temp 97.7 F 12/21/22 23:08 Pulse 75 12/22/22 04:00 Resp 18 12/22/22 04:00 BP 166/70 12/22/22 04:00 Pulse Ox 98 12/22/22 04:00 FiO2 Intake & Output 12/21/22 12/22/22 12/22/22 18:59 06:59 18:59 Intake Total 800 Output Total 1175 200 Balance -375 -200 Weight 98 kg 94.5 kg Intake: IV 800 ACETAMINOPHEN IV (For NPO 100 ) 1,000 mg In Empty Bag 1 bag @ 400 mls/hr IVPB ONCE ONE Rx#:[id number] Sodium Chloride 0.9% 1, 700 000 ml @ 75 mls/hr IV . [id number] [facility] Rx#:[id number] Output: Urine 1175 200 Other: Voiding Method Indwelling Catheter Indwelling Catheter - Exam General appearance: The patient is alert, oriented, appears in no acute dis tress. HET: Head is normocephalic and atraumatic. Conjunctiva pink. Sclera anicteric. Neck: Supple without lymphadenopathy. Abdomen: Soft, obese, nontender, mild distention. No guarding or rigidity. Extremities: Normal skin color and turgor. No pedal edema Skin: No rashes, no jaundice Neurological: No focal deficits. Alert and oriented. - Labs CBC & Chem 7: 12/22/22 08:40 12/22/22 08:40 Labs: Abnormal Lab Results - Last 24 Hours (Table) 12/21/22 12/21/22 12/21/22 Range/Units 11:43 16:45 19:34 POC Glucose (mg/dL) 170 H 175 H 174 H (70-110) mg/dL 12/22/22 Range/Units 05:47 POC Glucose (mg/dL) 205 H (70-110) mg/dL Microbiology - Last 24 Hours (Table) 12/19/22 05:21 Blood Culture - Preliminary Blood Assessment and Plan (1) Abdominal pain Narrative/Plan: 77-year-old male presented to the emergency department yesterday with family for concerns for confusion, weakness, and complaints of abdominal pain for the last 2-3 days duration. Patient was noted to be in acute renal failure, lactic acid osis and supratherapeutic INR. Patient on warfarin for coronary artery disease which is currently on hold and being treated with vitamin K. Reportedly the had reported patient was having dark stool at home however patient denies any blood in his stool or black stool. He also states abdominal pain has resolved. He had a CT abdomen and pelvis without any acute findings. He did have mild elevation in his amylase and lipase, 182 and 485 respectively. Unclear if he has a history of pancreatitis in the past. Patient is somewhat of a poor historian. He does admit to significant history of alcohol abuse but states he quit several years ago. Unclear etiology at this time of abdominal pa in could've been mild uncomplicated pancreatitis however pain has resolved. Nursing is reporting no signs of GI blood loss. Hemoglobin is stable. I recommend treating supratherapeutic INR. Patient is also having gross hematuria. We will continue to monitor at this time, recommend protonic 40 mg daily. For GI prophylaxis. No plans on endoscopic evaluation at this time. Patient continues to have no evidence of GI blood loss at this time. Due to multiple comorbidities will continue to hold off on endoscopic evaluation unless patient has active bleeding. Discussed with outpatient follow-up for EGD and colonoscopy when patient stabilizes. Current Visit: Yes Status: Acute Code(s): R10.9 - UNSPECIFIED ABDOMINAL PAIN SNOMED Code(s): 33176569 (2) Melena Narrative/Plan: states patient had a maroon colored stool prior to coming to the hospital. And about 4 days prior patient had some bright red blood noted in his stool. No previous history of EGD or colonoscopy. No further bleeding noted since patient has been here to the hospital. Will plan for outpatient follow-up to schedule endoscopic evaluation unless patient continues to have blood in his stool. Current Visit: Yes Status: Acute Code(s): K92.1 - MELENA SNOMED Code(s): 6898872 (3) Supratherapeutic INR Narrative/Plan: Improved Current Visit: Yes Status: Acute Code(s): R79.1 - ABNORMAL COAGULATION PROFILE SNOMED Code(s): 704187479 (4) ESDRAS (acute kidney injury) Narrative/Plan: On renal replacement therapy Current Visit: Yes Status: Acute Code(s): N17.9 - ACUTE KIDNEY FAILURE, UNSPECIFIED SNOMED Code(s): 12399383 (5) Hyperkalemia Current Visit: Yes Status: Acute Code(s): E87.5 - HYPERKALEMIA SNOMED Code(s): 35580279 (6) Renal failure Current Visit: Yes Status: Acute Code(s): N19 - UNSPECIFIED KIDNEY FAILURE SNOMED Code(s): 33371053 (7) CAD (coronary artery disease) Current Visit: No Status: Acute Code(s): I25.10 - ATHSCL HEART DISEASE OF [place] CORONARY ARTERY W/O ANG PCTRS SNOMED Code(s): 83844257 (8) Diabetes Current Visit: No Status: Acute Code(s): E11.9 - TYPE 2 DIABETES MELLITUS WITHOUT COMPLICATIONS SNOMED Code(s): 13498877 (9) Gross hematuria Narrative/Plan: Resolved Current Visit: Yes Status: Acute Code(s): R31.0 - GROSS HEMATURIA SNOMED Code(s): 705300490 Plan: 1. Continue symptomatic and supportive care 2. Advance diet as tolerated 3. Protonix 40 mg daily for GI prophylaxis 4. May resume anticoagulation 5. No plans on endoscopic evaluation at this time. Recommend outpatient follow-up for endoscopic evaluation. Thank you for this consultation, we will sign off at this time. Dr. Radha Dickey I agree with the dictator's note, documented as a scribe by Blessing Bernal.
--- NOTE | 2022-12-22 13:48 | XR ---
EXAMINATION TYPE: XR chest 1V DATE OF EXAM: 12/22/2022 COMPARISON: 12/21/2022 HISTORY: Shortness of breath TECHNIQUE: Single frontal view of the chest is obtained. FINDINGS: There is no focal air space opacity, pleural effusion, or pneumothorax seen. The cardiac silhouette size is within normal limits. The osseous structures are intact. A limited inspiration. Diffuse osteopenia with AC joint arthropathy. Prominent bowel loops in the upper abdomen. IMPRESSION: 1. No acute intrathoracic process. 2. Prominent bowel loops in the upper abdomen correlate clinically for ileus or obstruction.
--- NOTE | 2022-12-22 15:03 | P.GSCN ---
History of Present Illness Consult date: 12/22/22 History of present illness: CHIEF COMPLAINT: Abdominal pain HISTORY OF PRESENT ILLNESS: This is a 77-year-old male who presented to the hospital with complaints of abdominal pain, confusion and weakness. He was initially admitted to the ICU with acute kidney injury requiring to be started on hemodialysis. He had elevated INR level and lactic acid level. Patient has history of coronary disease and had been on Coumadin. Patient received vitamin K to correct his elevated INR. Patient does have a prior history of alcohol abuse quit years ago. Patient seen by GI service they have no plans for endoscopy. An abdominal x-ray had shown dilated bowel loops and correlate for bowel obstruction. I therefore surgical service has been consulted. Patient does report having flatus. He reports that his abdominal pain is improving. He was having vomiting yesterday. This has resolved. Patient is currently on the cardiac floor. Patient does sound more congested with cough. He is to receive IV Lasix ordered by nephrology. And he is to receive hemodialysis today. PAST MEDICAL HISTORY: See list. PAST SURGICAL HISTORY: See list. MEDICATIONS: See list. ALLERGIES: See list. SOCIAL HISTORY: No illicit drug use. REVIEW OF SYSTEMS: CONSTITUTIONAL: Denies fever or chills. HEENT: Denies blurred vision, vision changes, or eye pain. Denies hemoptysis ENDOCRINE: Denies heat or cold intolerance. CARDIOVASCULAR: Denies chest pain or pressure. RESPIRATORY: No shortness of breath. GASTROINTESTINAL: Denies abdominal pain. Denies nausea or vomiting. NEURO: Denies history of seizures. PSYCH: No depression or suicidal ideation HEMATOLOGIC: Denies bleeding disorders. LYMPHATIC: The patient denies any lumps and bumps around the neck. GENITOURINARY: Denies any blood in urine or increased urinary frequency. MUSCULOSKELETAL: Denies myalgias. Denies joint swelling. Denies decreased range of motion beyond patients baseline. SKIN: Denies pruitis. Denies rash. PHYSICAL EXAM: VITAL SIGNS: Reviewed GENERAL: Well-developed in no acute distress. HEENT: No sclera icterus. Extraocular movements grossly intact. Moist buccal mucosa. Head is atraumatic, normocephalic. hard of hearing NECK: Supple without lymphadenopathy. CHEST: Non-labored respirations and equal bilateral excursions. CARDIOVASCULAR: Palpable 2+ radial pulses. ABDOMEN: Soft. distended. Nontender MUSCULOSKELETAL: No clubbing or cyanosis. NEUROLOGIC: No focal or lateralizing signs. Cranial nerves II through XII grossly intact. PSYCH: Pleasantly confused SKIN: Well perfused. Good skin turgor. LABORATORY DATA: WBC 14.4 HGB 9.3 Plt 218 Sodium 139 potassium 4.6 creatinine 5.09 IMAGING: Acute abdominal series persistent dilated bowel loops correlate for obstruction. Right basilar atelectasis versus infiltrate Computed tomography scan abdomen and pelvis from 12/18/2022 no evidence for acute abdominal process. ASSESSMENT: 1. Abdominal pain. Possible small bowel obstruction. Abdominal x-ray with persistent dilated bowel loops 2. Acute kidney injury requiring emergent hemodialysis 3. Hyperkalemia improved 4. Metabolic encephalopathy 5. Diabetes mellitus 6. Coronary artery disease cardiac stents 6. Paroxysmal atrial fibrillation PLAN: -Abdominal x-ray series with Gastrografin ordered for further evaluation of possible small bowel obstruction. Unable to perform the small bowel follow- through because radiologist is not available -Continue clear liquid diet -Continue supportive care Physician Toll Service Observer note has been reviewed by physician. Signing provider agrees with the documented findings, assessment, and plan of care. Past Medical History Past Medical History: COPD, Diabetes Mellitus, Hyperlipidemia, Hypertension, Myocardial Infarction (MT) Additional Past Medical History / Comment(s): Recent sore R great toe-healed, gout. Last Myocardial Infarction Date:: 1991 History of Any Multi-Drug Resistant Organisms: None Reported Past Surgical History: Heart Catheterization, Heart Catheterization With Stent Additional Past Surgical History / Comment(s): 01/18/16 cardiac stents to RCA x2. Other surgical hx: balloon angiioplasty 1991, nathan cataracts Past Anesthesia/Blood Transfusion Reactions: No Reported Reaction Date of Last Stent Placement:: 01/19/16 Past Psychological History: No Psychological Hx Reported Smoking Status: Never smoker Past Alcohol Use History: None Reported Past Drug Use History: None Reported - Past Family History Mother Family Medical History: No Reported History Additional Family Medical History / Comment(s): Mother is healthy and is 89yrs old. Father Family Medical History: Cancer Additional Family Medical History / Comment(s): "blood cancer". at the age of 73 yrs. Medications and Allergies Home Medications Medication Instructions Recorded Confirmed Type Atorvastatin [Lipitor] 80 mg PO HS 01/14/16 12/18/22 History Loratadine 10 mg PO DAILY 01/14/16 12/18/22 History amLODIPine BESYLATE [Norvasc] 5 mg PO BID 01/14/16 12/18/22 History busPIRone HCL 15 mg PO DAILY 01/14/16 12/18/22 History cloNIDine HCL [Catapres] 0.1 mg PO BID 01/14/16 12/18/22 History metFORMIN HCL [Glucophage] 1,000 mg PO BID #0 01/20/16 12/18/22 Rx Ascorbic Acid [Vitamin C] 500 mg PO DAILY 12/18/22 12/18/22 History Cholecalciferol (Vitamin D3) 75 mcg PO DAILY 12/18/22 12/18/22 History [Vitamin D3 (3000 Iu)] Donepezil [Aricept] 10 mg PO HS 12/18/22 12/18/22 History Furosemide [Lasix] 20 mg PO DAILY 12/18/22 12/18/22 History Insulin Glargine,Hum.rec.anlog 30 units SQ DAILY 12/18/22 12/18/22 History [Lantus Solostar Pen] Metoprolol Succinate (ER) [Toprol 50 mg PO DAILY 12/18/22 12/18/22 History Xl] Tart Umrphy Extract 1 tab PO DAILY 12/18/22 12/18/22 History Warfarin Sodium [Jantoven] 2 mg PO MOWEFR 12/18/22 12/18/22 History Warfarin Sodium [Jantoven] 4 mg PO SUTUTHSA 12/18/22 12/18/22 History Zinc Gluconate [Zinc] 50 mg PO DAILY 12/18/22 12/18/22 History glipiZIDE XL [Glucotrol Xl] 10 mg PO BID 12/18/22 12/18/22 History hydrALAZINE HCL [Apresoline] 25 mg PO BID 12/18/22 12/18/22 History lisinopriL [Zestril] 20 mg PO BID 12/18/22 12/18/22 History Allergies Allergy/AdvReac Type Severity Reaction Status Date / Time No Known Allergies Allergy Verified 12/18/22 17:41 Surgical - Exam Vital Signs Temp Pulse Resp BP Pulse Ox 97.6 F 54 L 18 134/63 97 12/18/22 17:06 12/18/22 17:06 12/18/22 17:06 12/18/22 17:06 12/18/22 17:06 Results - Labs 12/22/22 08:40 12/22/22 08:40 Abnormal Lab Results - Last 24 Hours (Table) 12/21/22 12/21/22 12/22/22 Range/Units 16:45 19:34 05:47 WBC (3.8-10.6) k/uL RBC (4.30-5.90) m/uL Hgb (13.0-17.5) gm/dL Hct (39.0-53.0) % Carbon Dioxide (22-30) mmol/L BUN (9-20) mg/dL Creatinine (0.66-1.25) mg/dL Glucose (74-99) mg/dL POC Glucose (mg/dL) 175 H 174 H 205 H (70-110) mg/dL 12/22/22 12/22/22 12/22/22 Range/Units 08:40 08:40 11:19 WBC 14.4 H (3.8-10.6) k/uL RBC 3.29 L (4.30-5.90) m/uL Hgb 9.3 L (13.0-17.5) gm/dL Hct 29.3 L (39.0-53.0) % Carbon Dioxide 19 L (22-30) mmol/L BUN 47 H (9-20) mg/dL Creatinine 5.09 H (0.66-1.25) mg/dL Glucose 135 H (74-99) mg/dL POC Glucose (mg/dL) 179 H (70-110) mg/dL Microbiology - Last 24 Hours (Table) 12/19/22 05:21 Blood Culture - Preliminary Blood Diabetes panel 12/22/22 Range/Units 08:40 Sodium 139 (137-145) mmol/L Potassium 4.6 (3.5-5.1) mmol/L Chloride 105 (98-107) mmol/L Carbon Dioxide 19 L (22-30) mmol/L BUN 47 H (9-20) mg/dL Creatinine 5.09 H (0.66-1.25) mg/dL Glucose 135 H (74-99) mg/dL Calcium 8.7 (8.4-10.2) mg/dL Calcium panel 12/22/22 Range/Units 08:40 Calcium 8.7 (8.4-10.2) mg/dL Pituitary panel 12/22/22 Range/Units 08:40 Sodium 139 (137-145) mmol/L Potassium 4.6 (3.5-5.1) mmol/L Chloride 105 (98-107) mmol/L Carbon Dioxide 19 L (22-30) mmol/L BUN 47 H (9-20) mg/dL Creatinine 5.09 H (0.66-1.25) mg/dL Glucose 135 H (74-99) mg/dL Calcium 8.7 (8.4-10.2) mg/dL Adrenal panel 12/22/22 Range/Units 08:40 Sodium 139 (137-145) mmol/L Potassium 4.6 (3.5-5.1) mmol/L Chloride 105 (98-107) mmol/L Carbon Dioxide 19 L (22-30) mmol/L BUN 47 H (9-20) mg/dL Creatinine 5.09 H (0.66-1.25) mg/dL Glucose 135 H (74-99) mg/dL Calcium 8.7 (8.4-10.2) mg/dL
[2022-12-22 16:28] LABS: Glucose,Whole Blood 118 mg/dL (70-110)
--- NOTE | 2022-12-22 16:39 | P.PN ---
Subjective Progress Note Date: 12/22/22 (delayed charting seen at 0945) Patient is a 77-year-old male with COPD, diabetes, hypertension, dyslipidemia, prior myocardial infarction who presented to the emergency department due to abdominal pain and altered mentation. On arrival to the emergency department his vital signs within normal limits. Laboratory analysis was remarkable for white blood cell count 11.2, hemoglobin 10.5, potassium 8.8, carbon dioxide 9, BUN 132, creatinine 9.45, lactic acid 6.4, and lipase 485. He was also noted to have EKG changes significant for hyperkalemia. CT abdomen and pelvis shows no acute abdominal process. Chest x-ray shows no acute process. Patient was subsequently admitted to the ICU and arrangements were made for emergent dialysis. Pulmonary, vascular surgery, and nephrology were consulted. Vascular surgery placed a temporary dialysis catheter in the right groin. Patient s ubsequently underwent emergent hemodialysis. He had a renal and bladder ultrasound completed which showed no hydronephrosis or nephrolithiasis. He was seen by gastroenterology who recommended reversal of his INR and continued monitoring without immediate plans for endoscopy. Patient seen and examined at bedside. He is confused and only saying "ouch". Nursing states no over night events. Vital signs reviewed General: ill appearing, mild distress, appears at stated age Cardiovascular: S1S2 reg, no murmur, positive posterior tibial pulse bilateral, Lungs: Decreased bs b/l bilateral, no rhonchi, no rales , no accessory muscle use Abdominal: soft, distended nontender to palpation, no guarding, no appreciable organomegaly Ext: no gross muscle atrophy, no edema b/l lower extremities, no contractures Neuro: CN II-XI grossly intact, no focal neuro deficits Psych: Alert, oriented to place, month, self- year 2002, appropriate affect Assessment/Plan: Acute kidney injury Anion gap metabolic acidosis Toxic metabolic encephalopathy Hyperphosphatemia Hypocalcemia Aneima, acute blood loss - Nephrology note reviewed from today continue continue to hold off on dialysis, decrease normal saline at 50 mL/h - s/p 1 round of HD -Nephrology note reviewed: Hemodialysis with 2 L ultrafiltration, Lasix 60 mg IV once -Pulmonary note reviewed: Continue with clear liquid diet, continue to hold warfarin - PhosLo 667 mg oral with each meal - Safe and supportive environment - Hold lisinopril 20 mg twice daily -Lasix 60 mg IV daily - Follow basic metabolic profile for renal recovery - Follow urine output for signs of renal recovery - aricept on hold Abdominal distention secondary to ileus versus obstruction -Surgery note reviewed: Reviewed abdominal x-ray to rule out obstruction. Continue with clear liquid diet -Acute abdominal series ordered by myself: Persistent dilated bowel loops possible structure, right basilar infiltrate -Continue with clear liquid diet -Instructed nursing to call if patient developes vomiting as he will need a nasogastric tube Abdominal pain with melena -GI note reviewed: Will sign off, outpatient endoscopy -Continue with Protonix 40 mg IV daily Supratherapeutic INR - resume coumadin once known if patient will require intervention for obstruction - improved - Patient received vitamin K 5 mg IV piggyback 1 on 12/19 -Warfarin on hold - resume coumadin in AM Diabetes mellitus type II - A1C 8 -Continue with sliding scale -Follow blood sugars -Hold glipizide, metformin, and Lantus 30 units Hyperkalemia, resolved Chronic conditions: COPD, CAD, HTN, HLD, paroxysmal AFib Imaging: Hospital course imaging: Renal and bladder ultrasound: no hydronephrosis or nephrolithiasis Chest [id number] improvement in the interstitial congestion Abdominal x-ray: Dilated bowel loops correlate for obstruction Lumbar spine x-ray: Diffuse osteopenia with multifocal degenerative changes, dilated bowel loops correlate for ileus versus obstruction Data Review: Labs reviewed and remarkable for white blood cell count 14.4, hemoglobin 9.3, BUN 47, creatinine 5.09. DVT prophylaxis: Start heparin 5000 units 3 times daily Anticipated discharge date: Pending Clinical Course Anticipated discharge place: Pending Clinical Course This dictation was prepared using [employer] voice recognition software. [facility] every attempt is made to correct errors during dictation some may still exist. Objective - Vital Signs Vital signs: Vital Signs Temp 98 F 12/22/22 16:12 Pulse 76 12/22/22 16:12 Resp 20 12/22/22 16:12 BP 132/68 12/22/22 16:12 Pulse Ox 98 12/22/22 15:10 FiO2 Intake & Output 12/21/22 12/22/22 12/22/22 18:59 06:59 18:59 Intake Total 800 400 Output Total 6320 763 6379 Balance -386 -889 -4747 Weight 98 kg 94.5 kg 94.5 kg Intake: IV 800 ACETAMINOPHEN IV (For NPO 100 ) 1,000 mg In Empty Bag 1 bag @ 400 mls/hr IVPB ONCE ONE Rx#:[id number] Sodium Chloride 0.9% 1, 700 000 ml @ 75 mls/hr IV . [id number] [facility] Rx#:[id number] Oral 0 Hemodialysis 400 Output: Urine 1175 200 425 Hemodialysis 2400 Other: Voiding Method Indwelling Catheter Indwelling Catheter Indwelling Catheter - Labs CBC & Chem 7: 12/22/22 08:40 12/22/22 08:40 Labs: Abnormal Lab Results - Last 24 Hours (Table) 12/21/22 12/21/22 12/22/22 Range/Units 16:45 19:34 05:47 WBC (3.8-10.6) k/uL RBC (4.30-5.90) m/uL Hgb (13.0-17.5) gm/dL Hct (39.0-53.0) % Carbon Dioxide (22-30) mmol/L BUN (9-20) mg/dL Creatinine (0.66-1.25) mg/dL Glucose (74-99) mg/dL POC Glucose (mg/dL) 175 H 174 H 205 H (70-110) mg/dL 12/22/22 12/22/22 12/22/22 Range/Units 08:40 08:40 11:19 WBC 14.4 H (3.8-10.6) k/uL RBC 3.29 L (4.30-5.90) m/uL Hgb 9.3 L (13.0-17.5) gm/dL Hct 29.3 L (39.0-53.0) % Carbon Dioxide 19 L (22-30) mmol/L BUN 47 H (9-20) mg/dL Creatinine 5.09 H (0.66-1.25) mg/dL Glucose 135 H (74-99) mg/dL POC Glucose (mg/dL) 179 H (70-110) mg/dL 12/22/22 Range/Units 16:27 WBC (3.8-10.6) k/uL RBC (4.30-5.90) m/uL Hgb (13.0-17.5) gm/dL Hct (39.0-53.0) % Carbon Dioxide (22-30) mmol/L BUN (9-20) mg/dL Creatinine (0.66-1.25) mg/dL Glucose (74-99) mg/dL POC Glucose (mg/dL) 118 H (70-110) mg/dL Microbiology - Last 24 Hours (Table) 12/19/22 05:21 Blood Culture - Preliminary Blood
[2022-12-22 19:29] LABS: Glucose,Whole Blood 173 mg/dL (70-110)
[2022-12-22] MEDS: ATORVASTATIN 80 MG TAB PO SCH (21:07)
--- NOTE | 2022-12-22 23:02 | XR ---
EXAMINATION TYPE: XR abdomen 1V DATE OF EXAM: 12/22/2022 Comparison: Earlier today and 12/21/2022 Clinical History: 77-year-old male requested Gastrografin small bowel follow-through, Steel Plate Printer for SBFT Findings: The exam was discontinued after the radio time salesperson image and the patient took a sip of contrast. Patient refus ed to ingest anymore. Impression: Distended bowel seems to correspond to colon. Correlate for ongoing diffuse colonic distention up to 7.4 cm. The patient refused the Gastrografin contrast. The small bowel follow-through exam had to be discontinued.
[2022-12-23 06:09] LABS: Glucose,Whole Blood 152 mg/dL (70-110)
[2022-12-23] MEDS: CALCIUM ACETATE 667 MG TAB PO SCH ×3 (06:28→16:49)
[2022-12-23] MEDS: INSULIN ASPART (NovoLOG) 100 UNIT/ML VIAL SQ SCH ×4 (06:28→19:49)
[2022-12-23] MEDS: PANTOPRAZOLE 40 MG/10 ML VIAL IV SCH (08:22)
[2022-12-23] MEDS: hydrALAZINE HCL 50 MG TAB PO SCH ×3 (08:22→20:53)
[2022-12-23] MEDS: FUROSEMIDE 10 MG/ML 10 ML VIAL IV SCH (08:22)
[2022-12-23] MEDS: METOPROLOL SUCCINATE (ER) 50 MG TAB.ER.24H PO SCH (08:23)
[2022-12-23] MEDS: cloNIDine HCL 0.1 MG TAB PO SCH ×2 (08:23→20:54)
[2022-12-23] MEDS: MORPHINE SULFATE 4 MG/ML SYRINGE IV PRN (08:23)
[2022-12-23] MEDS: amLODIPine 5 MG TAB PO SCH ×2 (08:23→20:53)
[2022-12-23 09:23] LABS: HCT 29.2 % (39.0-53.0); HGB 9.4 gm/dL (13.0-17.5); MCH 28.3 pg (25.0-35.0); MCHC 32.1 g/dL (31.0-37.0); MCV 88.1 fL (80.0-100.0); Mean Platelet Volume 8.7; Platelet Count 236 k/uL (150-450); RBC 3.31 m/uL (4.30-5.90); RDW 14.4 % (11.5-15.5); WBC 16.9 k/uL (3.8-10.6)
[2022-12-23 09:39] LABS: African American GFR (CKD) 17 (>60 ml/min/1.73 sqM); Anion Gap 14 mmol/L; Blood Urea Nitrogen 39 mg/dL (9-20); Calcium 8.7 mg/dL (8.4-10.2); Carbon Dioxide 24 mmol/L (22-30); Chloride 97 mmol/L (98-107); Glucose 125 mg/dL (74-99); Magnesium 1.7 mg/dL (1.6-2.3); Non-African American GFR(CKD) 15 (>60 ml/min/1.73 sqM); Sodium 135 mmol/L (137-145)
[2022-12-23] MEDS ORDERED: ACETAMINOPHEN IV (For NPO) 1,000 MG in EMPTY BAG 1 BAG IVPB PRN (10:08)
[2022-12-23 11:52] LABS: Glucose,Whole Blood 179 mg/dL (70-110)
--- NOTE | 2022-12-23 13:12 | P.PN ---
Subjective Progress Note Date: 12/23/22 Follow-up for acute kidney injury. Started on hemodialysis on 12/19/2022. Had dialysis yesterday. Objective - Vital Signs Vital signs: Vital Signs Temp 97.2 F L 12/23/22 11:03 Pulse 71 12/23/22 11:03 Resp 20 12/23/22 11:03 BP 111/57 12/23/22 11:03 Pulse Ox 98 12/23/22 11:03 FiO2 Intake & Output 12/22/22 12/23/22 12/23/22 18:59 06:59 18:59 Intake Total 1220 50 Output Total 3075 250 200 Balance -1855 -250 -150 Weight 94.5 kg 91.5 kg Intake: IV 20 Invasive Line 1 10 Invasive Line 4 10 Intake, IV Titration 100 Amount ACETAMINOPHEN IV (For NPO 100 ) 1,000 mg In Empty Bag 1 bag @ 400 mls/hr IVPB ONCE ONE Rx#:[id number] Oral 720 30 Hemodialysis 400 Output: Urine 675 250 200 Hemodialysis 2400 Other: Voiding Method Indwelling Catheter Indwelling Catheter - Exam No acute distress S1-S2 heard Decreased breath sounds No edema - Labs CBC & Chem 7: 12/23/22 07:38 12/23/22 07:38 Labs: Abnormal Lab Results - Last 24 Hours (Table) 12/22/22 12/22/22 12/23/22 Range/Units 16:27 19:26 06:06 WBC (3.8-10.6) k/uL RBC (4.30-5.90) m/uL Hgb (13.0-17.5) gm/dL Hct (39.0-53.0) % Sodium (137-145) mmol/L Chloride (98-107) mmol/L BUN (9-20) mg/dL Creatinine (0.66-1.25) mg/dL Glucose (74-99) mg/dL POC Glucose (mg/dL) 118 H 173 H 152 H (70-110) mg/dL 12/23/22 12/23/22 12/23/22 Range/Units 07:38 07:38 11:48 WBC 16.9 H (3.8-10.6) k/uL RBC 3.31 L (4.30-5.90) m/uL Hgb 9.4 L (13.0-17.5) gm/dL Hct 29.2 L (39.0-53.0) % Sodium 135 L (137-145) mmol/L Chloride 97 L (98-107) mmol/L BUN 39 H (9-20) mg/dL Creatinine 3.73 H (0.66-1.25) mg/dL Glucose 125 H (74-99) mg/dL POC Glucose (mg/dL) 179 H (70-110) mg/dL Microbiology - Last 24 Hours (Table) 12/19/22 05:21 Blood Culture - Preliminary Blood Assessment and Plan Assessment: #1 dialysis dependent acute kidney injury secondary to hemodynamic ATN. -Baseline creatinine 1.29 MG per DL in December 2021. -Urine analysis bland #2 hyperkalemia, resolved on dialysis #3 diabetes mellitus #4 hypertension with chronic kidney disease #5 chronic kidney disease stage III a #6 volume overload Plan: #1 last hemodialysis yesterday. Next treatment on Sunday based on the volume status and renal function. #2 monitor for recovery
--- NOTE | 2022-12-23 13:21 | P.PN ---
Subjective Progress Note Date: 12/23/22 I am seeing this patient in new consultation today 12/19/2022 in the intensive care unit after the patient presented to the emergency room yesterday evening altered and very weak. He was found to be in acute renal failure and started on emergent hemodialysis. Patient is a 77-year-old white male with past medical history significant for diabetes mellitus, hyperlipidemia, hypertension, coronary artery disease with previous stents, paroxysmal atrial fibrillation anticoagulated on warfarin, COPD, and lower extremity cellulitis. Patient reportedly received treatment for bilateral lower extremity cellulitis on outpatient basis within the last month or so. Patient's unsure of the antibiotic, may have been on Bactrim. Patient is currently confused, and overall a poor historian. I did call the patient's who states that over the last 2 weeks he has not been eating or drinking much. He's been very weak and confused. On arrival to the emergency room yesterday evening the patient was fou nd to be in acute renal failure. He was severely acidotic and hyperkalemic with a potassium of 9.45. There were EKG related changes with bradycardia and widening of the QRS complex. Patient was treated twice with a k cocktail including calcium gluconate, D50W, regular insulin, albuterol, and 2 A of sodium bicarb. Patient also received a dose Lokelma. A femoral hemodialysis catheter was placed by vascular surgery, and the patient is currently undergoing emergent hemodialysis. Patient was admitted to the intensive care unit. He is currently lying in bed, on room air, in no acute distress. Blood pressure normotensive, not on any vasopressors. 3 amps sodium bicarbonate in D5W is infusing at 100 ML's per hour. Heart rhythm currently normal sinus with rate of 80 bpm. Chest x-ray on arrival showed no acute cardiopulmonary process. CBC on arrival showed some mild leukocytosis with a WBC count of 11.2, hemoglobin 10.5, hematocrit 32.7, platelets 317. CMP on arrival showed a sodium 136, potassium 8.8, chloride 103, serum bicarbonate 9, anion gap 24, BUN 132, creatinine 9.45, glucose 247. Lactic acid was elevated at 6.4 and is down to 5.3. Urinalysis not concerning for UTI. Lipase mildly elevated at 485. LFTs not elevated. Patient is reporting some mild abdominal pain with palpation. No nausea or vomiting. Non-jaundiced. INR supratherapeutic at 4.6. reports that the patient had burgundy-colored loose stools at home. No further bloody stools or melena reported by nursing staff. CT of abdomen and pelvis without contrast did not show any acute abdominal process. No obstructive uropathy. Afebrile. Patient is currently hemodynamically stable, and monitored on the intensive care unit. , On today's evaluation of 12/20/2022, the patient is awake and alert and c ommunicating. He is still feeling weak and fatigued. He is currently on oxygen at 2 L and his breathing is not labored at this point in time. As mentioned earlier, the patient presented to us with an acute kidney injury. He had significant electronic abnormalities including a significant hyperkalemia. He underwent hemodialysis yesterday and since yesterday the patient's urine operas improving and the patient is producing approximately 100 mL of urine output. His potassium level is down to 5.4. This is slightly elevated compared to yesterday where his potassium level was at 4.7. BUN is at 80 with a creatinine of 7.35. Otherwise, the 10.8 with a hemoglobin of 9.5 and a platelet count of 252. Ammonia level was less than 9. His lactic acid level has normalized. Blood sugar is currently at 78. The discomfort of 10.8 with a hemoglobin of 9.5. No hypotension. No hemodynamic instability. Nephrology is on the case. Possible hemodialysis today. He was provided some clear liquid diet. No focal neurological deficits. He remains afebrile. On 12/21/22, the patient is still confused. He is not consistent in his ability to provide history. He seems to be uncomfortable. Is complaining of some chronic back pain. His abdomen is also slightly distended. Nevertheless, the C AT scan of the abdomen and this was done at time of admission showed no evidence of any ileus or bowel obstruction and the bowel decompressed. He also had some chronic osteophytic changes in degenerative arthritis involving the thoracolumbar spine. The patient remains in renal failure although he has improved his urine output. Is producing approximately 100 mL of urine output and he has a Quezada catheter in place. His last hemodialysis session was done yesterday. His BUN is at 48 with a creatinine of 5.3. Potassium levels at 4.9. The visit 110.5 with a hemoglobin of 9.1 and a platelet count of 2:15. He remains on oxygen at 2 L with a pulse ox of 98%. He is afebrile. He is hemodynamically stable. He is on normal saline at rate of 75 mL an hour. His cardiac rhythm is sinus. His anticoagulants are still on hold. On 12/22/2022, the patient is being seen on the medical floor. The patient was transferred out of the intensive care unit yesterday. He is still having a failure. Is producing urine output. Nevertheless, the plan is to proceed with another session of hemodialysis today. His mental status is gradually improving. Slightly more alert compared to yesterday. His having episodes of confusion. He remains on Lasix 60 mg IV every 24 hours. No chest pain. He was complaining of back pain which has subsided. He was found to have some abdominal distention and the patient had a repeat set of the abdomen that shows persistent dilated bowels and bowel loops. He has hypoactive bowel sounds. Nephrology is on the case. The patient is going to undergo hemodialysis with a total of 2 L of ultrafiltration. His labs showed evidence of 14.4 with a hemoglobin of 9.3, BUN is at 47 with a creatinine of 5.09 and a potassium level of 4.6 and sodium levels is 139. He is on 2 L of oxygen nasal cannula and his pulse ox is around 93% On today's evaluation of 12/23/2022, the patient is awake and communicating. His most recent hemodialysis was done yesterday. The patient is on Lasix 60 mg IV every 12 hours. Is producing adequate amount of urine output. He is more interactive. Confusion is gradually improving. No focal neurological deficits. The enzymes at 39 with a creatinine of 3.7. Sodium levels of 135 with a potassium level of 4.0. The white cell count at 16.9. Hemoglobin is at 9.4. He is afebrile. He is on 2 L of oxygen by nasal cannula with a pulse ox of 98%. He did have some ileus and x-ray of the abdomen from yesterday showed distended bowels, essentially the large bowel. No nausea. No vomiting. No emesis. He is passing gas. Objective - Vital Signs Vital signs: Vital Signs Temp 97.8 F 12/23/22 08:10 Pulse 86 12/23/22 08:10 Resp 22 12/23/22 08:10 BP 182/42 12/23/22 08:10 Pulse Ox 98 12/23/22 08:10 FiO2 Intake & Output 12/22/22 12/23/22 12/23/22 18:59 06:59 18:59 Intake Total 1220 20 Output Total 3075 250 Balance -1855 -250 20 Weight 94.5 kg 91.5 kg Intake: IV 20 Invasive Line 1 10 Invasive Line 4 10 Intake, IV Titration 100 Amount ACETAMINOPHEN IV (For NPO 100 ) 1,000 mg In Empty Bag 1 bag @ 400 mls/hr IVPB ONCE ONE Rx#:[id number] Oral 720 Hemodialysis 400 Output: Urine 675 250 Hemodialysis 2400 Other: Voiding Method Indwelling Catheter Indwelling Catheter - Exam GENERAL EXAM: Alert and disoriented, 77-year-old male , fairly comfortable in no apparent distress. 2 liters/min HEAD: Normocephalic and atraumatic EYES: Normal reaction of pupils, equal size. NOSE: Clear with pink turbinates. THROAT: No erythema or exudates. NECK: No masses, no JVD. CHEST: No chest wall deformity. LUNGS: Equal air entry with no crackles, wheeze, rhonchi or dullness. On room air. No conversational dyspnea or accessory muscle use.. CVS: S1 and S2 normal with no audible murmur, regular rhythm. No extra heart sounds ABDOMEN: No hepatosplenomegaly, active bowel sounds, no guarding or rigidity. No abdominal pain. Slight distention is present. SPINE: No scoliosis or deformity SKIN: No rashes. Bilateral legs are edematous and dry/flaky CENTRAL NERVOUS SYSTEM: Patient is oriented to self and in place. Able to follow simple instructions. No focal deficits, tone is normal in all 4 extremities. EXTREMITIES: There is 2+ bilateral lower extremity edema. No clubbing, or cyanosis. Peripheral pulses are intact. - Labs CBC & Chem 7: 12/23/22 07:38 12/23/22 07:38 Labs: Abnormal Lab Results - Last 24 Hours (Table) 12/22/22 12/22/22 12/22/22 Range/Units 11:19 16:27 19:26 WBC (3.8-10.6) k/uL RBC (4.30-5.90) m/uL Hgb (13.0-17.5) gm/dL Hct (39.0-53.0) % Sodium (137-145) mmol/L Chloride (98-107) mmol/L BUN (9-20) mg/dL Creatinine (0.66-1.25) mg/dL Glucose (74-99) mg/dL POC Glucose (mg/dL) 179 H 118 H 173 H (70-110) mg/dL 12/23/22 12/23/22 12/23/22 Range/Units 06:06 07:38 07:38 WBC 16.9 H (3.8-10.6) k/uL RBC 3.31 L (4.30-5.90) m/uL Hgb 9.4 L (13.0-17.5) gm/dL Hct 29.2 L (39.0-53.0) % Sodium 135 L (137-145) mmol/L Chloride 97 L (98-107) mmol/L BUN 39 H (9-20) mg/dL Creatinine 3.73 H (0.66-1.25) mg/dL Glucose 125 H (74-99) mg/dL POC Glucose (mg/dL) 152 H (70-110) mg/dL Microbiology - Last 24 Hours (Table) 12/19/22 05:21 Blood Culture - Preliminary Blood Assessment and Plan Assessment: Acute kidney injury/failure requiring emergent hemodialysis likely secondary to intravascular volume depletion, dehydration, and use of ar inhibitors and diuretics, post HD and the patient started making some urine output . The patient's last dialysis was done yesterday on 12/22/2022. Urine operas continues to improve and the patient is currently on Lasix 60 mg IV every 24 hours. Patient is producing urine output. His last hemodialysis session was on 12/22/2022 Metabolic encephalopathy, improving Severe metabolic anion gap acidosis and lactic acidosis, recovered Severe hyperkalemia, secondary to above, improving Acute metabolic encephalopathy, secondary to above regimen in an underlying dementia as the patient has been taken Aricept on outpatient basis. Could be a component of delirium also. The patient is clinically improving. Severe dehydration and reduced oral intake, improved Abdominal pain, CT of abdomen showed no acute intra-abdominal process. He does have distended bowel loops. Rule out underlying ileus. No significant nausea or emesis of abdominal pain at this point in time. Chronic back pain Diabetes mellitus type 2 Hyperlipidemia Hypertension History of coronary artery disease and previous ID requiring heart rachel terization and stents. History of paroxysmal atrial fibrillation, normally anticoagulated on warfarin, currently off warfarin and the cardiac rhythm is sinus Supratherapeutic INR, possible GI bleeding reported at home. No further episodes as inpatient Normocytic normochromic anemia Chronic obstructive pulmonary disease, stable Obesity, with a BMI of 31.2 kg/m Plan: Continue IV Lasix Monitor mental status as the patient has a metabolic encephalopathy which is gradually improving Monitor Creatinine and renal function Monitor mental status Clear liquid diet, advance diet as tolerated No signs on the case Cardiac rhythm is sinus Keep warfarin on hold We'll continue to follow
[2022-12-23] MEDS: MORPHINE SULFATE 2 MG/ML SYRINGE IVP PRN (15:11)
--- NOTE | 2022-12-23 15:26 | P.PN ---
Subjective Progress Note Date: 12/23/22 (delayed charting seen at 0830) Patient is a 77-year-old male with COPD, diabetes, hypertension, dyslipidemia, prior myocardial infarction who presented to the emergency department due to abdominal pain and altered mentation. On arrival to the emergency department his vital signs within normal limits. Laboratory analysis was remarkable for white blood cell count 11.2, hemoglobin 10.5, potassium 8.8, carbon dioxide 9, BUN 132, creatinine 9.45, lactic acid 6.4, and lipase 485. He was also noted to have EKG changes significant for hyperkalemia. CT abdomen and pelvis shows no acute abdominal process. Chest x-ray shows no acute process. Patient was subsequently admitted to the ICU and arrangements were made for emergent dialysis. Pulmonary, vascular surgery, and nephrology were consulted. Vascular surgery placed a temporary dialysis catheter in the right groin. Patient s ubsequently underwent emergent hemodialysis. He had a renal and bladder ultrasound completed which showed no hydronephrosis or nephrolithiasis. He was seen by gastroenterology who recommended reversal of his INR and continued monitoring without immediate plans for endoscopy. Patient seen and examined at bedside. He continues to be confused. He complains of pain, but appears lethargic from morphine. Vital signs reviewed General: ill appearing, mild distress, appears at stated age Cardiovascular: S1S2 reg, no murmur, positive posterior tibial pulse bilateral, Lungs: Decreased bs b/l bilateral, no rhonchi, no rales , no accessory muscle use Abdominal: soft, distended nontender to palpation, no guarding, no appreciable organomegaly Ext: no gross muscle atrophy, no edema b/l lower extremities, no contractures Neuro: CN II-XI grossly intact, no focal neuro deficits Psych: Alert, oriented to self. Assessment/Plan: Acute kidney injury Anion gap metabolic acidosis Toxic metabolic encephalopathy Hyperphosphatemia Aneima, acute blood loss -Pulmonary: Continue with Lasix, monitor mental status -Nephrology recommendations reviewed: Hemodialysis treatment on Sunday continue to monitor renal function and volume status. - s/p 3 rounds of HD - PhosLo 667 mg oral with each meal - Safe and supportive environment - Hold lisinopril 20 mg twice daily -Lasix 60 mg IV daily - Follow basic metabolic profile for renal recovery - Follow urine output for signs of renal recovery - aricept on hold Abdominal distention secondary to ileus versus obstruction -Await further surgical recommendations -Continue with clear liquid diet Abdominal pain with melena -GI note reviewed: Will sign off, outpatient endoscopy -Continue with Protonix 40 mg IV daily Supratherapeutic INR - resume coumadin once known if patient will require intervention for obstruction - improved - Patient received vitamin K 5 mg IV piggyback 1 on 12/19 -Warfarin on hold Diabetes mellitus type II - A1C 8 -Continue with sliding scale -Follow blood sugars -Hold glipizide, metformin, and Lantus 30 units Hyperkalemia, resolved Hypocalcemia, resolved Chronic conditions: COPD, CAD, HTN, HLD, paroxysmal AFib Imaging: Abdominal x-ray reviewed: Continued distention of the colon Hospital course imaging: Renal and bladder ultrasound: no hydronephrosis or nephrolithiasis Chest [id number] improvement in the interstitial congestion Abdominal x-ray: Dilated bowel loops correlate for obstruction Lumbar spine x-ray: Diffuse osteopenia with multifocal degenerative changes, dilated bowel loops correlate for ileus versus obstruction Data Review: Labs reviewed from today include CBC and basic profile which are remarkable for white blood cell count 16.9, hemoglobin 9.5, sodium 135, BUN 39, creatinine 3.73. DVT prophylaxis: Start heparin 5000 units 3 times daily Anticipated discharge date: Pending Clinical Course Anticipated discharge place: Pending Clinical Course This dictation was prepared using [employer] voice recognition software. Though every attempt is made to correct errors during dictation some may still exist. Objective - Vital Signs Vital signs: Vital Signs Temp 97.2 F L 12/23/22 11:03 Pulse 71 12/23/22 11:03 Resp 20 12/23/22 11:03 BP 111/57 12/23/22 11:03 Pulse Ox 98 12/23/22 11:03 FiO2 Intake & Output 12/22/22 12/23/22 12/23/22 18:59 06:59 18:59 Intake Total 1220 272 Output Total 3075 250 200 Balance -1855 -250 72 Weight 94.5 kg 91.5 kg Intake: IV 20 Invasive Line 1 10 Invasive Line 4 10 Intake, IV Titration 100 Amount ACETAMINOPHEN IV (For NPO 100 ) 1,000 mg In Empty Bag 1 bag @ 400 mls/hr IVPB ONCE ONE Rx#:[id number] Oral 720 252 Hemodialysis 400 Output: Urine 675 250 200 Hemodialysis 2400 Other: Voiding Method Indwelling Catheter Indwelling Catheter Indwelling Catheter - Labs CBC & Chem 7: 12/23/22 07:38 12/23/22 07:38 Labs: Abnormal Lab Results - Last 24 Hours (Table) 12/22/22 12/22/22 12/23/22 Range/Units 16:27 19:26 06:06 WBC (3.8-10.6) k/uL RBC (4.30-5.90) m/uL Hgb (13.0-17.5) gm/dL Hct (39.0-53.0) % Sodium (137-145) mmol/L Chloride (98-107) mmol/L BUN (9-20) mg/dL Creatinine (0.66-1.25) mg/dL Glucose (74-99) mg/dL POC Glucose (mg/dL) 118 H 173 H 152 H (70-110) mg/dL 12/23/22 12/23/22 12/23/22 Range/Units 07:38 07:38 11:48 WBC 16.9 H (3.8-10.6) k/uL RBC 3.31 L (4.30-5.90) m/uL Hgb 9.4 L (13.0-17.5) gm/dL Hct 29.2 L (39.0-53.0) % Sodium 135 L (137-145) mmol/L Chloride 97 L (98-107) mmol/L BUN 39 H (9-20) mg/dL Creatinine 3.73 H (0.66-1.25) mg/dL Glucose 125 H (74-99) mg/dL POC Glucose (mg/dL) 179 H (70-110) mg/dL Microbiology - Last 24 Hours (Table) 12/19/22 05:21 Blood Culture - Preliminary Blood
[2022-12-23 16:19] LABS: Glucose,Whole Blood 157 mg/dL (70-110)
[2022-12-23 19:33] LABS: Glucose,Whole Blood 120 mg/dL (70-110)
[2022-12-23] MEDS: ATORVASTATIN 80 MG TAB PO SCH (20:53)
[2022-12-24 05:54] LABS: Glucose,Whole Blood 147 mg/dL (70-110)
[2022-12-24] MEDS: INSULIN ASPART (NovoLOG) 100 UNIT/ML VIAL SQ SCH ×4 (06:04→20:50)
[2022-12-24] MEDS: CALCIUM ACETATE 667 MG TAB PO SCH ×3 (06:42→18:01)
[2022-12-24 09:59] LABS: HCT 28.4 % (39.0-53.0); HGB 9.1 gm/dL (13.0-17.5); Hypochromasia Slight; MCH 28.8 pg (25.0-35.0); MCV 89.9 fL (80.0-100.0); Mean Platelet Volume 7.6; Platelet Count 259 k/uL (150-450); RBC 3.16 m/uL (4.30-5.90); RDW 14.4 % (11.5-15.5); WBC 12.9 k/uL (3.8-10.6)
[2022-12-24] MEDS: PANTOPRAZOLE 40 MG/10 ML VIAL IV SCH (10:03)
[2022-12-24] MEDS: cloNIDine HCL 0.1 MG TAB PO SCH ×2 (10:04→20:53)
[2022-12-24] MEDS: amLODIPine 5 MG TAB PO SCH ×2 (10:04→20:53)
[2022-12-24] MEDS: METOPROLOL SUCCINATE (ER) 50 MG TAB.ER.24H PO SCH (10:04)
[2022-12-24] MEDS: hydrALAZINE HCL 50 MG TAB PO SCH ×3 (10:04→20:53)
[2022-12-24] MEDS: FUROSEMIDE 10 MG/ML 10 ML VIAL IV SCH (10:04)
[2022-12-24] MEDS: SIMETHICONE 80 MG CHEWABLE PO SCH ×4 (10:05→20:54)
[2022-12-24 10:17] LABS: African American GFR (CKD) 18 (>60 ml/min/1.73 sqM); Anion Gap 15 mmol/L; Blood Urea Nitrogen 52 mg/dL (9-20); Calcium 8.9 mg/dL (8.4-10.2); Carbon Dioxide 22 mmol/L (22-30); Chloride 99 mmol/L (98-107); Glucose 146 mg/dL (74-99); Non-African American GFR(CKD) 16 (>60 ml/min/1.73 sqM); Sodium 136 mmol/L (137-145)
[2022-12-24] MEDS ORDERED: MAGNESIUM HYDROXIDE 2,400 MG/30 ML CUP PO ONE (10:21)
[2022-12-24 11:51] LABS: Glucose,Whole Blood 162 mg/dL (70-110)
[2022-12-24] MEDS: MORPHINE SULFATE 2 MG/ML SYRINGE IVP PRN (12:05)
--- NOTE | 2022-12-24 12:52 | P.PN ---
Subjective Progress Note Date: 12/24/22 I am seeing this patient in new consultation today 12/19/2022 in the intensive care unit after the patient presented to the emergency room yesterday evening altered and very weak. He was found to be in acute renal failure and started on emergent hemodialysis. Patient is a 77-year-old white male with past medical history significant for diabetes mellitus, hyperlipidemia, hypertension, coronary artery disease with previous stents, paroxysmal atrial fibrillation anticoagulated on warfarin, COPD, and lower extremity cellulitis. Patient reportedly received treatment for bilateral lower extremity cellulitis on outpatient basis within the last month or so. Patient's unsure of the antibiotic, may have been on Bactrim. Patient is currently confused, and overall a poor historian. I did call the patient's who states that over the last 2 weeks he has not been eating or drinking much. He's been very weak and confused. On arrival to the emergency room yesterday evening the patient was fou nd to be in acute renal failure. He was severely acidotic and hyperkalemic with a potassium of 9.45. There were EKG related changes with bradycardia and widening of the QRS complex. Patient was treated twice with a k cocktail including calcium gluconate, D50W, regular insulin, albuterol, and 2 A of sodium bicarb. Patient also received a dose Lokelma. A femoral hemodialysis catheter was placed by vascular surgery, and the patient is currently undergoing emergent hemodialysis. Patient was admitted to the intensive care unit. He is currently lying in bed, on room air, in no acute distress. Blood pressure normotensive, not on any vasopressors. 3 amps sodium bicarbonate in D5W is infusing at 100 ML's per hour. Heart rhythm currently normal sinus with rate of 80 bpm. Chest x-ray on arrival showed no acute cardiopulmonary process. CBC on arrival showed some mild leukocytosis with a WBC count of 11.2, hemoglobin 10.5, hematocrit 32.7, platelets 317. CMP on arrival showed a sodium 136, potassium 8.8, chloride 103, serum bicarbonate 9, anion gap 24, BUN 132, creatinine 9.45, glucose 247. Lactic acid was elevated at 6.4 and is down to 5.3. Urinalysis not concerning for UTI. Lipase mildly elevated at 485. LFTs not elevated. Patient is reporting some mild abdominal pain with palpation. No nausea or vomiting. Non-jaundiced. INR supratherapeutic at 4.6. reports that the patient had burgundy-colored loose stools at home. No further bloody stools or melena reported by nursing staff. CT of abdomen and pelvis without contrast did not show any acute abdominal process. No obstructive uropathy. Afebrile. Patient is currently hemodynamically stable, and monitored on the intensive care unit. , On today's evaluation of 12/20/2022, the patient is awake and alert and c ommunicating. He is still feeling weak and fatigued. He is currently on oxygen at 2 L and his breathing is not labored at this point in time. As mentioned earlier, the patient presented to us with an acute kidney injury. He had significant electronic abnormalities including a significant hyperkalemia. He underwent hemodialysis yesterday and since yesterday the patient's urine operas improving and the patient is producing approximately 100 mL of urine output. His potassium level is down to 5.4. This is slightly elevated compared to yesterday where his potassium level was at 4.7. BUN is at 80 with a creatinine of 7.35. Otherwise, the 10.8 with a hemoglobin of 9.5 and a platelet count of 252. Ammonia level was less than 9. His lactic acid level has normalized. Blood sugar is currently at 78. The discomfort of 10.8 with a hemoglobin of 9.5. No hypotension. No hemodynamic instability. Nephrology is on the case. Possible hemodialysis today. He was provided some clear liquid diet. No focal neurological deficits. He remains afebrile. On 12/21/22, the patient is still confused. He is not consistent in his ability to provide history. He seems to be uncomfortable. Is complaining of some chronic back pain. His abdomen is also slightly distended. Nevertheless, the C AT scan of the abdomen and this was done at time of admission showed no evidence of any ileus or bowel obstruction and the bowel decompressed. He also had some chronic osteophytic changes in degenerative arthritis involving the thoracolumbar spine. The patient remains in renal failure although he has improved his urine output. Is producing approximately 100 mL of urine output and he has a Quezada catheter in place. His last hemodialysis session was done yesterday. His BUN is at 48 with a creatinine of 5.3. Potassium levels at 4.9. The visit 110.5 with a hemoglobin of 9.1 and a platelet count of 2:15. He remains on oxygen at 2 L with a pulse ox of 98%. He is afebrile. He is hemodynamically stable. He is on normal saline at rate of 75 mL an hour. His cardiac rhythm is sinus. His anticoagulants are still on hold. On 12/22/2022, the patient is being seen on the medical floor. The patient was transferred out of the intensive care unit yesterday. He is still having a failure. Is producing urine output. Nevertheless, the plan is to proceed with another session of hemodialysis today. His mental status is gradually improving. Slightly more alert compared to yesterday. His having episodes of confusion. He remains on Lasix 60 mg IV every 24 hours. No chest pain. He was complaining of back pain which has subsided. He was found to have some abdominal distention and the patient had a repeat set of the abdomen that shows persistent dilated bowels and bowel loops. He has hypoactive bowel sounds. Nephrology is on the case. The patient is going to undergo hemodialysis with a total of 2 L of ultrafiltration. His labs showed evidence of 14.4 with a hemoglobin of 9.3, BUN is at 47 with a creatinine of 5.09 and a potassium level of 4.6 and sodium levels is 139. He is on 2 L of oxygen nasal cannula and his pulse ox is around 93% On today's evaluation of 12/23/2022, the patient is awake and communicating. His most recent hemodialysis was done yesterday. The patient is on Lasix 60 mg IV every 12 hours. Is producing adequate amount of urine output. He is more interactive. Confusion is gradually improving. No focal neurological deficits. The enzymes at 39 with a creatinine of 3.7. Sodium levels of 135 with a potassium level of 4.0. The white cell count at 16.9. Hemoglobin is at 9.4. He is afebrile. He is on 2 L of oxygen by nasal cannula with a pulse ox of 98%. He did have some ileus and x-ray of the abdomen from yesterday showed distended bowels, essentially the large bowel. No nausea. No vomiting. No emesis. He is passing gas. Today's evaluation of 12/24/2022, the patient is alert and communicating. Continues to have some mild abdominal distention. He is able to pass gas. No agitation. No restlessness. Remains on Lasix 80 mg IV every 24 hours. The patient is in negative fluid balance for now. Urine output is adequate and the patient has produced approximately 3.3 L of urine output since yesterday. The patient's BUN is at 50 with a creatinine of 3.5 and sodium levels of 136. The risk of 12.9 with a hemoglobin of 9.1. No other significant events otherwise for now. He was transferred out of the intensive care unit 48 hours ago. Welfare Director on the case. Objective - Vital Signs Vital signs: Vital Signs Temp 97.3 F L 12/24/22 09:45 Pulse 90 12/24/22 09:45 Resp 20 12/24/22 09:45 BP 148/70 12/24/22 09:45 Pulse Ox 90 L 12/24/22 09:45 FiO2 Intake & Output 12/23/22 12/24/22 12/24/22 18:59 06:59 18:59 Intake Total 512 0 Output Total 400 400 Balance 112 -400 0 Weight 91 kg Intake: IV 20 Invasive Line 1 10 Invasive Line 4 10 Oral 492 0 Output: Urine 400 400 Other: Voiding Method Indwelling Catheter Indwelling Catheter - Exam GENERAL EXAM: Alert and disoriented, 77-year-old male , fairly comfortable in no apparent distress. 2 liters/min HEAD: Normocephalic and atraumatic EYES: Normal reaction of pupils, equal size. NOSE: Clear with pink turbinates. THROAT: No erythema or exudates. NECK: No masses, no JVD. CHEST: No chest wall deformity. LUNGS: Equal air entry with no crackles, wheeze, rhonchi or dullness. On room air. No conversational dyspnea or accessory muscle use.. CVS: S1 and S2 normal with no audible murmur, regular rhythm. No extra heart sounds ABDOMEN: No hepatosplenomegaly, active bowel sounds, no guarding or rigidity. No abdominal pain. Slight distention is present. SPINE: No scoliosis or deformity SKIN: No rashes. Bilateral legs are edematous and dry/flaky CENTRAL NERVOUS SYSTEM: Patient is oriented to self and in place. Able to follow simple instructions. No focal deficits, tone is normal in all 4 extremities. EXTREMITIES: There is 2+ bilateral lower extremity edema. No clubbing, or cyanosis. Peripheral pulses are intact. - Labs CBC & Chem 7: 12/24/22 09:27 12/24/22 09:27 Labs: Abnormal Lab Results - Last 24 Hours (Table) 12/23/22 12/23/22 12/23/22 Range/Units 11:48 16:09 19:31 POC Glucose (mg/dL) 179 H 157 H 120 H (70-110) mg/dL 12/24/22 Range/Units 05:53 POC Glucose (mg/dL) 147 H (70-110) mg/dL Assessment and Plan Assessment: Acute kidney injury/failure requiring emergent hemodialysis likely secondary to intravascular volume depletion, dehydration, and use of ar inhibitors and diuretics, post HD and the patient started making some urine output . The patient's last dialysis was done yesterday on 12/22/2022. Urine operas continues to improve and the patient is currently on Lasix 60 mg IV every 24 hours. Patient is producing urine output. His last hemodialysis session was on 12/22/2022, the patient continues to improve and the patient is producing adequate amount of urine output. For instance, to produce more than 3 L over the past 24 hours. Creatinine is down to 8.59. Metabolic encephalopathy, improving Severe metabolic anion gap acidosis and lactic acidosis, recovered Severe hyperkalemia, secondary to above, improving Acute metabolic encephalopathy, secondary to above regimen in an underlying dementia as the patient has been taken Aricept on outpatient basis. Could be a component of delirium also. The patient is clinically improving. Severe dehydration and reduced oral intake, improved Abdominal pain, CT of abdomen showed no acute intra-abdominal process. He does have distended bowel loops. Rule out underlying ileus. No significant nausea or emesis of abdominal pain at this point in time. Chronic back pain Diabetes mellitus type 2 Hyperlipidemia Hypertension History of coronary artery disease and previous CT requiring heart catheterization and stents. History of paroxysmal atrial fibrillation, normally anticoagulated on warfarin, currently off warfarin and the cardiac rhythm is sinus Supratherapeutic INR, possible GI bleeding reported at home. No further episodes as inpatient Normocytic normochromic anemia Chronic obstructive pulmonary disease, stable Obesity, with a BMI of 31.2 kg/m Plan: Continue IV Lasix Negative fluid balance Mental status continues to improve Monitor ileus Monitor mental status as the patient has a metabolic encephalopathy which is gradually improving Monitor Creatinine and renal function Monitor mental status Clear liquid diet, advance diet as tolerated No signs on the case Cardiac rhythm is sinus Keep warfarin on hold We'll continue to follow
--- NOTE | 2022-12-24 14:05 | P.PN ---
Subjective Progress Note Date: 12/24/22 (delayed charting seen at 0945) Patient is a 77-year-old male with COPD, diabetes, hypertension, dyslipidemia, prior myocardial infarction who presented to the emergency department due to abdominal pain and altered mentation. On arrival to the emergency department his vital signs within normal limits. Laboratory analysis was remarkable for white blood cell count 11.2, hemoglobin 10.5, potassium 8.8, carbon dioxide 9, BUN 132, creatinine 9.45, lactic acid 6.4, and lipase 485. He was also noted to have EKG changes significant for hyperkalemia. CT abdomen and pelvis shows no acute abdominal process. Chest x-ray shows no acute process. Patient was subsequently admitted to the ICU and arrangements were made for emergent dialysis. Pulmonary, vascular surgery, and nephrology were consulted. Vascular surgery placed a temporary dialysis catheter in the right groin. Patient s ubsequently underwent emergent hemodialysis. He had a renal and bladder ultrasound completed which showed no hydronephrosis or nephrolithiasis. He was seen by gastroenterology who recommended reversal of his INR and continued monitoring without immediate plans for endoscopy. Patient seen and examined at bedside. He is frustrated with his clear liquid diet. We reviewed the fact that he has obstruction and he is understanding of why he needs to be on an adjusted diet. He is wondering whether or not he will need to go to surgery. Vital signs reviewed General: ill appearing, mild distress, appears at stated age Cardiovascular: S1S2 reg, no murmur, positive posterior tibial pulse bilateral, Lungs: Decreased bs b/l bilateral, no rhonchi, no rales , no accessory muscle use Abdominal: soft, distended nontender to palpation, no guarding, no appreciable organomegaly Ext: no gross muscle atrophy, no edema b/l lower extremities, no contractures Neuro: CN II-XI grossly intact, no focal neuro deficits Psych: Alert, oriented to self. Assessment/Plan: Acute kidney injury Anion gap metabolic acidosis Toxic metabolic encephalopathy Hyperphosphatemia Aneima, acute blood loss -Pulmonary note reviewed: Continue IV Lasix, advance diet as tolerated -Nephrology recs: Assess on sunday for need for continued HD - s/p 3 rounds of HD - PhosLo 667 mg oral with each meal - Safe and supportive environment - Hold lisinopril 20 mg twice daily -Lasix 60 mg IV daily - Follow basic metabolic profile for renal recovery - Follow urine output for signs of renal recovery - aricept on hold Abdominal distention secondary to ileus versus obstruction -Await further surgical recommendations -Continue with clear liquid diet - still no BM per nursing, add simethicone 40 mg QID Abdominal pain with melena -GI note reviewed: Will sign off, outpatient endoscopy -Continue with Protonix 40 mg IV daily Supratherapeutic INR - resume coumadin once known if patient will require intervention for obstruction - improved - Patient received vitamin K 5 mg IV piggyback 1 on 12/19 -Warfarin on hold Diabetes mellitus type II - A1C 8 -Continue with sliding scale -Follow blood sugars -Hold glipizide, metformin, and Lantus 30 units Hyperkalemia, resolved Hypocalcemia, resolved Chronic conditions: COPD, CAD, HTN, HLD, paroxysmal AFib Imaging: Abdominal x-ray reviewed: Continued distention of the colon Hospital course imaging: Renal and bladder ultrasound: no hydronephrosis or nephrolithiasis Chest [id number] improvement in the interstitial congestion Abdominal x-ray: Dilated bowel loops correlate for obstruction Lumbar spine x-ray: Diffuse osteopenia with multifocal degenerative changes, dilated bowel loops correlate for ileus versus obstruction Data Review: Labs reviewed from today including CBC and basic metabolic profile white blood cell count 12.9, hemoglobin 9.1, sodium 136, BUN 52, creatinine 3.5 DVT prophylaxis: Start heparin 5000 units 3 times daily Anticipated discharge date: Pending Clinical Course Anticipated discharge place: Pending Clinical Course This dictation was prepared using [employer] voice recognition software. Though every attempt is made to correct errors during dictation some may still exist. Objective - Vital Signs Vital signs: Vital Signs Temp 97.3 F L 12/24/22 11:56 Pulse 77 12/24/22 11:56 Resp 20 12/24/22 11:56 BP 136/63 12/24/22 11:56 Pulse Ox 97 12/24/22 11:56 FiO2 21 12/24/22 07:10 Intake & Output 12/23/22 12/24/22 12/24/22 18:59 06:59 18:59 Intake Total 512 240 Output Total 400 400 Balance 112 -400 240 Weight 91 kg Intake: IV 20 Invasive Line 1 10 Invasive Line 4 10 Oral 492 240 Output: Urine 400 400 Other: Voiding Method Indwelling Catheter Indwelling Catheter Indwelling Catheter - Labs CBC & Chem 7: 11/19/23 09:27 12/24/22 09:27 Labs: Abnormal Lab Results - Last 24 Hours (Table) 12/23/22 12/23/22 12/24/22 Range/Units 16:09 19:31 05:53 WBC (3.8-10.6) k/uL RBC (4.30-5.90) m/uL Hgb (13.0-17.5) gm/dL Hct (39.0-53.0) % Sodium (137-145) mmol/L BUN (9-20) mg/dL Creatinine (0.66-1.25) mg/dL Glucose (74-99) mg/dL POC Glucose (mg/dL) 157 H 120 H 147 H (70-110) mg/dL 12/24/22 12/24/22 12/24/22 Range/Units 09:27 09:27 11:50 WBC 12.9 H (3.8-10.6) k/uL RBC 3.16 L (4.30-5.90) m/uL Hgb 9.1 L (13.0-17.5) gm/dL Hct 28.4 L (39.0-53.0) % Sodium 136 L (137-145) mmol/L BUN 52 H (9-20) mg/dL Creatinine 3.59 H (0.66-1.25) mg/dL Glucose 146 H (74-99) mg/dL POC Glucose (mg/dL) 162 H (70-110) mg/dL Microbiology - Last 24 Hours (Table) 12/19/22 05:21 Blood Culture - Final Blood
--- NOTE | 2022-12-24 15:41 | P.PN ---
Subjective Progress Note Date: 12/24/22 Follow-up for acute kidney injury. Started on hemodialysis on 12/19/2022. Last dialysis was on Sunday. Urine output of 3.3 L in the last 24 hours. Objective - Vital Signs Vital signs: Vital Signs Temp 97.3 F L 12/24/22 11:56 Pulse 77 12/24/22 11:56 Resp 20 12/24/22 11:56 BP 136/63 12/24/22 11:56 Pulse Ox 97 12/24/22 11:56 FiO2 21 12/24/22 07:10 Intake & Output 12/23/22 12/24/22 12/24/22 18:59 06:59 18:59 Intake Total 512 240 Output Total 400 400 Balance 112 -400 240 Weight 91 kg Intake: IV 20 Invasive Line 1 10 Invasive Line 4 10 Oral 492 240 Output: Urine 400 400 Other: Voiding Method Indwelling Catheter Indwelling Catheter Indwelling Catheter - Exam No acute distress S1-S2 heard Decreased breath sounds No edema - Labs CBC & Chem 7: 12/24/22 09:27 12/24/22 09:27 Labs: Abnormal Lab Results - Last 24 Hours (Table) 12/23/22 12/23/22 12/24/22 Range/Units 16:09 19:31 05:53 WBC (3.8-10.6) k/uL RBC (4.30-5.90) m/uL Hgb (13.0-17.5) gm/dL Hct (39.0-53.0) % Sodium (137-145) mmol/L BUN (9-20) mg/dL Creatinine (0.66-1.25) mg/dL Glucose (74-99) mg/dL POC Glucose (mg/dL) 157 H 120 H 147 H (70-110) mg/dL 12/24/22 12/24/22 12/24/22 Range/Units 09:27 09:27 11:50 WBC 12.9 H (3.8-10.6) k/uL RBC 3.16 L (4.30-5.90) m/uL Hgb 9.1 L (13.0-17.5) gm/dL Hct 28.4 L (39.0-53.0) % Sodium 136 L (137-145) mmol/L BUN 52 H (9-20) mg/dL Creatinine 3.59 H (0.66-1.25) mg/dL Glucose 146 H (74-99) mg/dL POC Glucose (mg/dL) 162 H (70-110) mg/dL Microbiology - Last 24 Hours (Table) 12/19/22 05:21 Blood Culture - Final Blood Assessment and Plan Assessment: #1 dialysis dependent acute kidney injury secondary to hemodynamic ATN. -Baseline creatinine 1.29 MG per DL in December 2021. -Urine analysis bland #2 hyperkalemia, resolved on dialysis #3 diabetes mellitus #4 hypertension with chronic kidney disease #5 chronic kidney disease stage III a #6 volume overload Plan: #1 last hemodialysis on 12/22/2022. #2 with good urine output, monitor labs tomorrow if renal function improving discontinue dialysis. #3 avoid nephrotoxic agents and hypotensive episodes
[2022-12-24 17:00] LABS: Glucose,Whole Blood 189 mg/dL (70-110)
[2022-12-24 20:50] LABS: Glucose,Whole Blood 134 mg/dL (70-110)
[2022-12-24] MEDS: ATORVASTATIN 80 MG TAB PO SCH (20:53)
[2022-12-25 06:15] LABS: Glucose,Whole Blood 195 mg/dL (70-110)
[2022-12-25] MEDS: INSULIN ASPART (NovoLOG) 100 UNIT/ML VIAL SQ SCH ×4 (06:37→21:18)
[2022-12-25] MEDS: CALCIUM ACETATE 667 MG TAB PO SCH ×3 (06:37→17:15)
[2022-12-25 08:00] LABS: HCT 27.7 % (39.0-53.0); HGB 9.2 gm/dL (13.0-17.5); MCH 29.1 pg (25.0-35.0); MCHC 33.1 g/dL (31.0-37.0); Mean Platelet Volume 7.8; Platelet Count 288 k/uL (150-450); RBC 3.15 m/uL (4.30-5.90); RDW 14.4 % (11.5-15.5); WBC 12.5 k/uL (3.8-10.6)
[2022-12-25 08:16] LABS: African American GFR (CKD) 20 (>60 ml/min/1.73 sqM); Anion Gap 13 mmol/L; Blood Urea Nitrogen 58 mg/dL (9-20); Calcium 8.9 mg/dL (8.4-10.2); Carbon Dioxide 26 mmol/L (22-30); Chloride 98 mmol/L (98-107); Glucose 173 mg/dL (74-99); Non-African American GFR(CKD) 17 (>60 ml/min/1.73 sqM); Potassium 3.8 mmol/L (3.5-5.1); Sodium 137 mmol/L (137-145)
[2022-12-25] MEDS: FUROSEMIDE 10 MG/ML 10 ML VIAL IV SCH (10:19)
[2022-12-25] MEDS: PANTOPRAZOLE 40 MG/10 ML VIAL IV SCH (10:21)
[2022-12-25] MEDS: METOPROLOL SUCCINATE (ER) 50 MG TAB.ER.24H PO SCH (10:22)
[2022-12-25] MEDS: hydrALAZINE HCL 50 MG TAB PO SCH ×3 (10:22→21:18)
[2022-12-25] MEDS: amLODIPine 5 MG TAB PO SCH ×2 (10:23→21:18)
[2022-12-25] MEDS: SIMETHICONE 80 MG CHEWABLE PO SCH ×4 (10:23→21:19)
[2022-12-25] MEDS: cloNIDine HCL 0.1 MG TAB PO SCH ×2 (10:23→21:14)
[2022-12-25 12:00] LABS: Glucose,Whole Blood 206 mg/dL (70-110)
--- NOTE | 2022-12-25 12:20 | P.PN ---
Subjective Patient is seen for follow-up for acute kidney injury. Started hemodialysis on 12/19/2022. Urine output has increased. Last hemodialysis on 12/22/2022. 24 hour urine output at 1.3 L. Serum creatinine improved to 3.29 today. No significant complaints Objective - Vital Signs Vital signs: Vital Signs Temp 98.5 F 12/25/22 12:00 Pulse 94 12/25/22 12:00 Resp 18 12/25/22 12:00 BP 139/71 12/25/22 12:00 Pulse Ox 98 12/25/22 12:00 FiO2 21 12/24/22 07:10 Intake & Output 12/24/22 12/25/22 12/25/22 18:59 06:59 18:59 Intake Total 780 Output Total 1325 0 Balance -545 0 Weight 87.5 kg Intake: Oral 780 Output: Urine 1325 0 Other: Voiding Method Indwelling Catheter Indwelling Catheter Indwelling Catheter - Exam Patient is awake, comfortable, no acute distress Examination of the heart S1 and S2 Examination of the lungs bilateral breath sounds are heard Abdomen is soft nontender Examination lower extremity shows no evidence of edema [employer]AGE[employer] TE[employer] exam grossly intact - Labs CBC & Chem 7: 12/25/22 07:36 12/25/22 07:36 Labs: Abnormal Lab Results - Last 24 Hours (Table) 12/24/22 12/24/22 12/25/22 Range/Units 16:43 20:49 06:13 WBC (3.8-10.6) k/uL RBC (4.30-5.90) m/uL Hgb (13.0-17.5) gm/dL Hct (39.0-53.0) % BUN (9-20) mg/dL Creatinine (0.66-1.25) mg/dL Glucose (74-99) mg/dL POC Glucose (mg/dL) 189 H 134 H 195 H (70-110) mg/dL 12/25/22 12/25/22 12/25/22 Range/Units 07:36 07:36 11:47 WBC 12.5 H (3.8-10.6) k/uL RBC 3.15 L (4.30-5.90) m/uL Hgb 9.2 L (13.0-17.5) gm/dL Hct 27.7 L (39.0-53.0) % BUN 58 H (9-20) mg/dL Creatinine 3.29 H (0.66-1.25) mg/dL Glucose 173 H (74-99) mg/dL POC Glucose (mg/dL) 206 H (70-110) mg/dL Microbiology - Last 24 Hours (Table) 12/19/22 05:21 Blood Culture - Final Blood Assessment and Plan Assessment: 1. Acute kidney injury ATN currently nonoliguric with improving renal function. Started hemodialysis on 12/19/2022. Last hemodialysis on 12/22. Renal function is improving and I will continue to hold hemodialysis for now. 2. Hyperkalemia improved post dialysis 3. CK D stage III a 4. Hypertension with CK D stage III 5. Volume overload currently improved Plan: Continue to hold dialysis Repeat labs in a.m. DC dialysis catheter tomorrow if renal function continues to improve.
--- NOTE | 2022-12-25 13:36 | P.PN ---
Subjective Progress Note Date: 12/25/22 CHIEF COMPLAINT: Abdominal distention HISTORY OF PRESENT ILLNESS: Patient continues to have abdominal distention. He denies any abdominal pain. Denies any nausea or vomiting. Denies having any bowel movements. Patient small bowel follow-through x-ray had been canceled. An abdominal x-ray series showed distended bowel seems to correspond:. Call if ongoing diffuse colonic distention up to 7.4 cm. Patient had refused Gastrografin. Small bowel follow-through exam had to be discontinued. Afebrile . WBC is 12.5 Hgb 9.2 that's to 88 creatinine 3.29 PHYSICAL EXAM: VITAL SIGNS: Reviewed GENERAL: Well-developed in no acute distress. HEENT: No sclera icterus. Extraocular movements grossly intact. Moist buccal mucosa. Head is atraumatic, normocephalic. Hears conversational speech. No nasal d rainage. NECK: Supple without lymphadenopathy. CHEST: Non-labored respirations and equal bilateral excursions. CARDIOVASCULAR: Palpable 2+ radial pulses. ABDOMEN: Soft. Distended Nontender. MUSCULOSKELETAL: No clubbing or cyanosis. NEUROLOGIC: No focal or lateralizing signs. Cranial nerves II through XII grossly intact. PSYCH: Pleasantly confused SKIN: Well perfused. Good skin turgor. ASSESSMENT: 1. Abdominal distention. Possible small bowel obstruction 2. Acute kidney injury requiring emergent hemodialysis 3. Hyperkalemia improved 4. Metabolic encephalopathy 5. Diabetes mellitus 6. Coronary artery disease cardiac stents 6. Paroxysmal atrial fibrillation PLAN: -We'll repeat a small bowel follow-through with Gastrografin to evaluate for possible small bowel obstruction -Continue clear liquid diet -Continue acute kidney injury management per nephrology -Encouraged patient to increase activity level if possible Physician Physical Therapy Director note has been reviewed by physician. Signing provider agrees with the documented findings, assessment, and plan of care. Objective - Vital Signs Vital signs: Vital Signs Temp 98.5 F 12/25/22 12:00 Pulse 94 12/25/22 12:00 Resp 18 12/25/22 12:00 BP 139/71 12/25/22 12:00 Pulse Ox 98 12/25/22 12:00 FiO2 21 12/24/22 07:10 Intake & Output 12/24/22 12/25/22 12/25/22 18:59 06:59 18:59 Intake Total 780 Output Total 1325 0 Balance -545 0 Weight 87.5 kg Intake: Oral 780 Output: Urine 1325 0 Other: Voiding Method Indwelling Catheter Indwelling Catheter Indwelling Catheter - Labs CBC & Chem 7: 12/25/22 07:36 12/25/22 07:36 Labs: Abnormal Lab Results - Last 24 Hours (Table) 12/24/22 12/24/22 12/25/22 Range/Units 16:43 20:49 06:13 WBC (3.8-10.6) k/uL RBC (4.30-5.90) m/uL Hgb (13.0-17.5) gm/dL Hct (39.0-53.0) % BUN (9-20) mg/dL Creatinine (0.66-1.25) mg/dL Glucose (74-99) mg/dL POC Glucose (mg/dL) 189 H 134 H 195 H (70-110) mg/dL 12/25/22 12/25/22 12/25/22 Range/Units 07:36 07:36 11:47 WBC 12.5 H (3.8-10.6) k/uL RBC 3.15 L (4.30-5.90) m/uL Hgb 9.2 L (13.0-17.5) gm/dL Hct 27.7 L (39.0-53.0) % BUN 58 H (9-20) mg/dL Creatinine 3.29 H (0.66-1.25) mg/dL Glucose 173 H (74-99) mg/dL POC Glucose (mg/dL) 206 H (70-110) mg/dL Microbiology - Last 24 Hours (Table) 12/19/22 05:21 Blood Culture - Final Blood
--- NOTE | 2022-12-25 15:51 | P.PN ---
Subjective Progress Note Date: 12/25/22 Patient is a 77-year-old male with COPD, diabetes, hypertension, dyslipidemia, prior myocardial infarction who presented to the emergency department due to abdominal pain and altered mentation. On arrival to the emergency department his vital signs within normal limits. Laboratory analysis was remarkable for white blood cell count 11.2, hemoglobin 10.5, potassium 8.8, carbon dioxide 9, BUN 132, creatinine 9.45, lactic acid 6.4, and lipase 485. He was also noted to have EKG changes significant for hyperkalemia. CT abdomen and pelvis shows no acute abdominal process. Chest x-ray shows no acute process. Patient was subsequently admitted to the ICU and arrangements were made for emergent dialys is. Pulmonary, vascular surgery, and nephrology were consulted. Vascular surgery placed a temporary dialysis catheter in the right groin. Patient subsequently underwent emergent hemodialysis. He had a renal and bladder ultrasound completed which showed no hydronephrosis or nephrolithiasis. He was seen by gastroenterology who recommended reversal of his INR and continued monitoring without immediate plans for endoscopy. 12/25 Patient seen and examined at bedside. He reports poor appetite. No bowel movement. Reports no abdominal pain. No N/V. CBC WBC 12.5 Hg 9.2. CMP BUN 58, Cr 3.29, glu 173. Surgery recommends small bowel follow through, continue CLD. General: ill appearing, mild distress, appears at stated age Cardiovascular: S1S2 reg, no murmur Lungs: Decreased bs b/l bilateral, no rhonchi, no rales , no accessory muscle use Abdominal: soft, distended nontender to palpation, no guarding, no appreciable organomegaly, + BS Ext: no gross muscle atrophy, no edema b/l lower extremities, no contractures Neuro: no focal neuro deficits Psych: Alert, oriented to self. Assessment/Plan: Acute kidney injury Anion gap metabolic acidosis Toxic metabolic encephalopathy Hyperphosphatemia Aneima, acute blood loss -Pulmonary note reviewed: Continue IV Lasix, advance diet as tolerated -Nephrology recs: Hold HD. Repeat BMP tomorrow. DC HD catheter if improved tomorrow. - s/p 3 rounds of HD - PhosLo 667 mg oral with each meal - Safe and supportive environment - Hold lisinopril 20 mg twice daily - Lasix 60 mg IV daily - Follow basic metabolic profile for renal recovery - Follow urine output for signs of renal recovery - aricept on hold Abdominal distention secondary to ileus versus obstruction -Await further surgical recommendations -Repeat small bowel follow through ordered by surgery -Continue with clear liquid diet -still no BM per nursing, add simethicone 40 mg QID Abdominal pain with melena -GI note reviewed: Will sign off, outpatient endoscopy -Continue with Protonix 40 mg IV daily Supratherapeutic INR - resume coumadin once known if patient will require intervention for obstruction - improved - Patient received vitamin K 5 mg IV piggyback 1 on 12/19 -Warfarin on hold Diabetes mellitus type II - A1C 8 -Continue with sliding scale -Follow blood sugars -Hold glipizide, metformin, and Lantus 30 units Hyperkalemia, resolved Hypocalcemia, resolved Chronic conditions: COPD, CAD, HTN, HLD, paroxysmal AFib Data Review: Labs reviewed from today including CBC and basic metabolic profile as above. Objective - Vital Signs Vital signs: Vital Signs Temp 98.5 F 12/25/22 12:00 Pulse 94 12/25/22 12:00 Resp 18 12/25/22 12:00 BP 139/71 12/25/22 12:00 Pulse Ox 98 12/25/22 12:00 FiO2 21 12/24/22 07:10 Intake & Output 12/24/22 12/25/22 12/25/22 18:59 06:59 18:59 Intake Total 780 118 Output Total 1325 0 Balance -545 0 118 Weight 87.5 kg 87.5 kg Intake: Oral 780 118 Output: Urine 1325 0 Other: Voiding Method Indwelling Catheter Indwelling Catheter Indwelling Catheter - Labs CBC & Chem 7: 12/25/22 07:36 12/25/22 07:36 Labs: Abnormal Lab Results - Last 24 Hours (Table) 12/24/22 12/24/22 12/25/22 Range/Units 16:43 20:49 06:13 WBC (3.8-10.6) k/uL RBC (4.30-5.90) m/uL Hgb (13.0-17.5) gm/dL Hct (39.0-53.0) % BUN (9-20) mg/dL Creatinine (0.66-1.25) mg/dL Glucose (74-99) mg/dL POC Glucose (mg/dL) 189 H 134 H 195 H (70-110) mg/dL 12/25/22 12/25/22 12/25/22 Range/Units 07:36 07:36 11:47 WBC 12.5 H (3.8-10.6) k/uL RBC 3.15 L (4.30-5.90) m/uL Hgb 9.2 L (13.0-17.5) gm/dL Hct 27.7 L (39.0-53.0) % BUN 58 H (9-20) mg/dL Creatinine 3.29 H (0.66-1.25) mg/dL Glucose 173 H (74-99) mg/dL POC Glucose (mg/dL) 206 H (70-110) mg/dL Microbiology - Last 24 Hours (Table) 12/19/22 05:21 Blood Culture - Final Blood
--- NOTE | 2022-12-25 16:06 | P.PN ---
Subjective Progress Note Date: 12/25/22 Principal diagnosis: acute kidney injury/acute renal failure requiring emergent hemodialysis I am seeing this patient in new consultation today 12/19/2022 in the intensive care unit after the patient presented to the emergency room yesterday evening altered and very weak. He was found to be in acute renal failure and started on emergent hemodialysis. Patient is a 77-year-old white male with past medical history significant for diabetes mellitus, hyperlipidemia, hypertension, coronary artery disease with previous stents, paroxysmal atrial fibrillation anticoagulated on warfarin, COPD, and lower extremity cellulitis. Patient reportedly received treatment for bilateral lower extremity cellulitis on outpatient basis within the last month or so. Patient's unsure of the antibiotic, may have been on Bactrim. Patient is currently confused, and overall a poor historian. I did call the patient's who states that over the last 2 weeks he has not been eating or drinking much. He's been very weak and confused. On arrival to the emergency room yesterday evening the patient was found to be in acute renal failure. He was severely acidotic and hyperkalemic with a potassium of 9.45. There were EKG related changes with bradycardia and widening of the QRS complex. Patient was treated twice with a k cocktail including calcium gluconate, D50W, regular insulin, albuterol, and 2 A of sodium bicarb. Patient also received a dose Lokelma. A femoral hemodialysis catheter was placed by vascular surgery, and the patient is currently undergoing emergent hemodialysis. Patient was admitted to the intensive care unit. He is currently lying in bed, on room air, in no acute distress. Blood pressure normotensive, not on any vasopressors. 3 amps sodium bicarbonate in D5W is infusing at 100 ML's per hour. Heart rhythm currently normal sinus with rate of 80 bpm. Chest x-ray on arrival showed no acute cardiopulmonary process. CBC on arrival showed some mild leukocytosis with a WBC count of 11.2, hemoglobin 10.5, hematocrit 32.7, platelets 317. CMP on arrival showed a sodium 136, potassium 8.8, chloride 103, serum bicarbonate 9, anion gap 24, BUN 132, creatinine 9.45, glucose 247. Lactic acid was elevated at 6.4 and is down to 5.3. Urinalysis not concerning for UTI. Lipase mildly elevated at 485. LFTs not elevated. Patient is reporting some mild abdominal pain with palpation. No nausea or vomiting. Non-jaundiced. INR supratherapeutic at 4.6. reports that the patient had burgundy-colored loose stools at home. No further bloody stools or melena reported by nursing staff. CT of abdomen and pelvis without contrast did not show any acute abdominal process. No obstructive uropathy. Afebrile. Patient is currently hemodynamically stable, and monitored on the intensive care unit. , On today's evaluation of 12/20/2022, the patient is awake and alert and communicating. He is still feeling weak and fatigued. He is currently on oxygen at 2 L and his breathing is not labored at this point in time. As mentioned earlier, the patient presented to us with an acute kidney injury. He had significant electronic abnormalities including a significant hyperkalemia. He underwent hemodialysis yesterday and since yesterday the patient's urine operas improving and the patient is producing approximately 100 mL of urine output. His potassium level is down to 5.4. This is slightly elevated compared to yesterday where his potassium level was at 4.7. BUN is at 80 with a creatinine of 7.35. Otherwise, the 10.8 with a hemoglobin of 9.5 and a platelet count of 252. Ammonia level was less than 9. His lactic acid level has normalized. Blood sugar is currently at 78. The discomfort of 10.8 with a hemoglobin of 9.5. No hypotension. No hemodynamic instability. Nephrology is on the case. Possible hemodialysis today. He was provided some clear liquid diet. No focal neurological deficits. He remains afebrile. On 12/21/22, the patient is still confused. He is not consistent in his ability to provide history. He seems to be uncomfortable. Is complaining of some chronic back pain. His abdomen is also slightly distended. Nevertheless, the CAT scan of the abdomen and this was done at time of admission showed no evidence of any ileus or bowel obstruction and the bowel decompressed. He also had some chronic osteophytic changes in degenerative arthritis involving the thoracolumbar spine. The patient remains in renal failure although he has improved his urine output. Is producing approximately 100 mL of urine output and he has a Quezada catheter in place. His last hemodialysis session was done yesterday. His BUN is at 48 with a creatinine of 5.3. Potassium levels at 4.9. The visit 110.5 with a hemoglobin of 9.1 and a platelet count of 2:15. He remains on oxygen at 2 L with a pulse ox of 98%. He is afebrile. He is hemodynamically stable. He is on normal saline at rate of 75 mL an hour. His cardiac rhythm is sinus. His anticoagulants are still on hold. On 12/22/2022, the patient is being seen on the medical floor. The patient was transferred out of the intensive care unit yesterday. He is still having a failure. Is producing urine output. Nevertheless, the plan is to proceed with another session of hemodialysis today. His mental status is gradually improving. Slightly more alert compared to yesterday. His having episodes of confusion. He remains on Lasix 60 mg IV every 24 hours. No chest pain. He was complaining of back pain which has subsided. He was found to have some abdomin al distention and the patient had a repeat set of the abdomen that shows persistent dilated bowels and bowel loops. He has hypoactive bowel sounds. Nephrology is on the case. The patient is going to undergo hemodialysis with a total of 2 L of ultrafiltration. His labs showed evidence of 14.4 with a hemoglobin of 9.3, BUN is at 47 with a creatinine of 5.09 and a potassium level of 4.6 and sodium levels is 139. He is on 2 L of oxygen nasal cannula and his pulse ox is around 93% On today's evaluation of 12/23/2022, the patient is awake and communicating. His most recent hemodialysis was done yesterday. The patient is on Lasix 60 mg IV every 12 hours. Is producing adequate amount of urine output. He is more interactive. Confusion is gradually improving. No focal neurological deficits. The enzymes at 39 with a creatinine of 3.7. Sodium levels of 135 with a potassium level of 4.0. The white cell count at 16.9. Hemoglobin is at 9.4. He is afebrile. He is on 2 L of oxygen by nasal cannula with a pulse ox of 98%. He did have some ileus and x-ray of the abdomen from yesterday showed distended bowels, essentially the large bowel. No nausea. No vomiting. No emesis. He is passing gas. Today's evaluation of 12/24/2022, the patient is alert and communicating. Continues to have some mild abdominal distention. He is able to pass gas. No agitation. No restlessness. Remains on Lasix 80 mg IV every 24 hours. The patient is in negative fluid balance for now. Urine output is adequate and the patient has produced approximately 3.3 L of urine output since yesterday. The patient's BUN is at 50 with a creatinine of 3.5 and sodium levels of 136. The risk of 12.9 with a hemoglobin of 9.1. No other significant events otherwise for now. He was transferred out of the intensive care unit 48 hours ago. Gleason Operator on the case. Patient was reevaluated today on 12/25/2022,patient seems to be doing better, he does have poor appetite and no bowel movements, denies any nausea vomiting or abdominal pain.patient has been on hemodialysis since 12/19/2022, and his last hemodialysis was given on 12/22 so far the patient seems to be making good urine output, 24-hour urine output was 1.3 L, and creatinine has been steadily improving down to 3.29 today. Dialysis is presently on hold, patient may or may not require hemodialysis again. This is being followed and addressed by nephrology on the case.CBC is relatively normal hemoglobin is 9.2 basic metabolic profile is normal BUN is 58.continues to have abdominal distention, possible ileus, and that being addressed by his admitting physician and general surgery on the case, still concerned about possible bowel obstruction. O Objective - Vital Signs Vital signs: Vital Signs Temp 98.5 F 12/25/22 12:00 Pulse 94 12/25/22 12:00 Resp 18 12/25/22 12:00 BP 139/71 12/25/22 12:00 Pulse Ox 98 12/25/22 12:00 FiO2 21 12/24/22 07:10 Intake & Output 12/24/22 12/25/22 12/25/22 18:59 06:59 18:59 Intake Total 780 118 Output Total 1325 0 Balance -545 0 118 Weight 87.5 kg 87.5 kg Intake: Oral 780 118 Output: Urine 1325 0 Other: Voiding Method Indwelling Catheter Indwelling Catheter Indwelling Catheter - Exam GENERAL EXAM: Alert and disoriented, 77-year-old male ,on room air. O2 sat 95% HEAD: Normocephalic and atraumatic HEENT: PERRLA, EOMI, nonicteric, no neck masses, no JVD. CHEST: No chest wall deformity. LUNGS: Equal air entry with no crackles, wheeze, rhonchi or dullness. On room air. No conversational dyspnea or accessory muscle use.. CVS: S1 and S2 normal with no audible murmur, regular rhythm. No extra heart sounds ABDOMEN: slightly distended.No hepatosplenomegaly, no bowel sounds. SKIN: No rashes. Bilateral legs are edematous and dry/flaky CENTRAL NERVOUS SYSTEM: alert and oriented 3 no gross focal deficit EXTREMITIES: There is1+ bilateral lower extremity edema. No clubbing, or cyanosis. Peripheral pulses are intact. - Labs CBC & Chem 7: 12/25/22 07:36 12/25/22 07:36 Labs: Abnormal Lab Results - Last 24 Hours (Table) 12/24/22 12/24/22 12/25/22 Range/Units 16:43 20:49 06:13 WBC (3.8-10.6) k/uL RBC (4.30-5.90) m/uL Hgb (13.0-17.5) gm/dL Hct (39.0-53.0) % BUN (9-20) mg/dL Creatinine (0.66-1.25) mg/dL Glucose (74-99) mg/dL POC Glucose (mg/dL) 189 H 134 H 195 H (70-110) mg/dL 12/25/22 12/25/22 12/25/22 Range/Units 07:36 07:36 11:47 WBC 12.5 H (3.8-10.6) k/uL RBC 3.15 L (4.30-5.90) m/uL Hgb 9.2 L (13.0-17.5) gm/dL Hct 27.7 L (39.0-53.0) % BUN 58 H (9-20) mg/dL Creatinine 3.29 H (0.66-1.25) mg/dL Glucose 173 H (74-99) mg/dL POC Glucose (mg/dL) 206 H (70-110) mg/dL Microbiology - Last 24 Hours (Table) 12/19/22 05:21 Blood Culture - Final Blood Assessment and Plan Assessment: impression: acute kidney injury, acute tubular necrosis with acute renal failure requiring emergent hemodialysis Acute metabolic encephalopathy resolved Severe metabolic anion gap metabolic acidosis and lactic acidosis resolved Possible ileus or bowel obstruction being addressed by surgery Type 2 diabetes Benign essential hypertension Dyslipidemia Paroxysmal atrial fibrillation normally on Coumadin Chronic obstructive pulmonary disease Obesity with BMI of 31.2 Chronic low back pain Severe dehydration upon admission Severe hyperkalemia on admission, resolved Recommendation: Continue Lasix Continue to monitor renal status Continue to hold hemodialysis for now as recommended by nephrology Continue to monitor mental status General surgery to address his abdominal distention and possible bowel obstruction or ileus Continue Coumadin on hold for now. We will continue to follow Time with Patient: Less than 30
--- NOTE | 2022-12-25 16:08 | FL ---
EXAMINATION TYPE: FL small bowel follow through DATE OF EXAM: 12/25/2022 3:34 PM COMPARISON: CT abdomen pelvis most recent from 12/18/2022 INDICATION: Patient age:Male; 77 years old; Reason for study: Follow up on SBO; TECHNIQUE: The procedure was explained and patient history elicited. All patient questions were ans wered prior to start of procedure. A decorator hand radiograph of the abdomen was also reviewed. The patient was asked to ingest liquid Gastrografin and incremental frontal abdominal radiographs were then taken until contrast was visualized in the cecum. Fluoroscopic time: 0 min Fluoroscopic images: 0 Radiographs taken: 9 FINDINGS: The decorator hand abdominal radiograph demonstrates a normal bowel gas pattern without dilated loops of small or large bowel. There is no evidence of organomegaly or pneumoperitoneum. No abnormal calcifications . The visualized osseous structures are intact. Contrast is seen extending from the duodenojejunal junction into the cecum after two hours, which is within the expected time period. The small bowel follows normal distribution and contour without any evidence of extraluminal or intraluminal irregularity. There is no displacement of bowel loops or e xtraluminal extravasation of contrast material. Small bowel mucosal folds are felt to be within nick l limits. IMPRESSION: No evidence of small bowel obstruction. Normal transit of oral contrast to the rectum at 2 hours.
[2022-12-25 16:43] LABS: Glucose,Whole Blood 243 mg/dL (70-110)
[2022-12-25] MEDS: MORPHINE SULFATE 4 MG/ML SYRINGE IV PRN (16:47)
[2022-12-25 21:17] LABS: Glucose,Whole Blood 211 mg/dL (70-110)
[2022-12-25] MEDS: ATORVASTATIN 80 MG TAB PO SCH (21:18)
[2022-12-26 05:16] LABS: Glucose,Whole Blood 219 mg/dL (70-110)
[2022-12-26] MEDS: CALCIUM ACETATE 667 MG TAB PO SCH ×3 (06:43→17:06)
[2022-12-26] MEDS: INSULIN ASPART (NovoLOG) 100 UNIT/ML VIAL SQ SCH ×4 (06:43→20:32)
[2022-12-26 07:27] LABS: HCT 30.3 % (39.0-53.0); HGB 9.8 gm/dL (13.0-17.5); MCH 28.6 pg (25.0-35.0); MCHC 32.4 g/dL (31.0-37.0); MCV 88.2 fL (80.0-100.0); Mean Platelet Volume 7.9; Platelet Count 369 k/uL (150-450); RBC 3.44 m/uL (4.30-5.90); RDW 14.6 % (11.5-15.5); WBC 15.3 k/uL (3.8-10.6)
[2022-12-26 07:44] LABS: African American GFR (CKD) 22 (>60 ml/min/1.73 sqM); Anion Gap 14 mmol/L; Blood Urea Nitrogen 69 mg/dL (9-20); Calcium 9.2 mg/dL (8.4-10.2); Carbon Dioxide 26 mmol/L (22-30); Chloride 101 mmol/L (98-107); Glucose 215 mg/dL (74-99); Non-African American GFR(CKD) 19 (>60 ml/min/1.73 sqM); Potassium 3.3 mmol/L (3.5-5.1); Sodium 141 mmol/L (137-145)
[2022-12-26] MEDS: amLODIPine 5 MG TAB PO SCH ×2 (08:52→19:52)
[2022-12-26] MEDS: FUROSEMIDE 10 MG/ML 10 ML VIAL IV SCH (08:52)
[2022-12-26] MEDS: cloNIDine HCL 0.1 MG TAB PO SCH ×2 (08:52→19:53)
[2022-12-26] MEDS: METOPROLOL SUCCINATE (ER) 50 MG TAB.ER.24H PO SCH (08:52)
[2022-12-26] MEDS: hydrALAZINE HCL 50 MG TAB PO SCH ×3 (08:52→20:54)
[2022-12-26] MEDS: PANTOPRAZOLE 40 MG/10 ML VIAL IV SCH (08:52)
[2022-12-26] MEDS: SIMETHICONE 80 MG CHEWABLE PO SCH ×4 (09:02→20:54)
--- NOTE | 2022-12-26 11:02 | P.PN ---
Subjective Progress Note Date: 12/26/22 77 year old M with PMH of COPD, CAD, DM, HTN, HLD, paroxysmal AFib on coumadin presents to the ED for altered mentation and complaints of abdominal pain. Recently treated for cellulitis possibly with Bactrim for lower extremity cellulitis. Reports poor appetite and oral intake. Quezada catheter inserted in the ED, produced 200 cc of urine, no further output since. In the ED, he underwent extensive evaluation. Tlow 94.6F, bradycardic to 50s and well as tachycardic to 120s. CBC WBC count 11.2, Hg 10.5. INR 4.6. CMP Na 136, K 8.8, bicarb 9, BUN 132, Cr 9.45, glucose 247. Lactic acid 6.4. Mag 2.7. Amylase 182. Lipase 485. UA negative for LE or nitrite. EKG sinus bradycardia, wide complex rhythm, RBBB CT AP showed no acute abdominal process, no obstructive uropathy. CXR showed no acute process and cardiomegaly. Patient was admitted to ICU for further management. He was given Ca gluconate, albuterol neb, insulin with D50, Lokelma, sodium bicarbonate for hyperkalemia. He was given IV vitamin K for coumadin reversal. Vascular surgery was consulted for emergent hemodialysis access. He underwent HD from 12/19-12/22. He had a renal and bladder ultrasound completed which showed no hydronephrosis or nephrolithiasis. He was seen by gastroenterology for melena who recommended reversal of his INR and continued monitoring without immediate plans for endoscopy. He continued to make good urine output while on Lasix with renal function improving and plans were made to discontinue the HD catheter on 12/26. He developed some abdominal distention and pain thought to be ileus vs SBO, KUB on 12/21 showing dilated bowel loops in the abdomen. Surgery was consulted, and he was managed conservatively. Small bowel follow through on 12/25 showed no bowel obstruction and normal transit of oral contrast to the rectum. His diet was upgraded from CLD to Renal diet where he continued to show improvement. 12/26 Patient was seen and examined. He reports feeling much better after being started on a real diet. Diet upgraded after small bowel follow through showed no bowel obstruction and normal transit of oral contrast to the rectum. Urine output 1.325L over the past 24H. Maintained on Lasix 60 mg IV QD. CBC WBC 15.3, Hg 9.8. BMP K 3.3, BUN 69, Cr 3, glu 215. General: non toxic, no distress, appears at stated age Derm: warm, dry Head: atraumatic, normocephalic, symmetric Eyes: EOMI, no lid lag, anicteric sclera Mouth: no lip lesion, mucus membranes moist Cardiovascular: S1S2 reg, no murmur Lungs: Coarse BS bilateral, no rhonchi, no rales , no accessory muscle use Abdominal: Slightly distended, nontender to palpation, no guarding, + BS Ext: no gross muscle atrophy, no edema, no contractures Neuro: no focal neuro deficits Psych: Alert, oriented, appropriate affect Acute kidney injury Acute metabolic encephalopathy Acute blood loss anemia Hyperphosphatemia Abdominal distention Resolved: Hyperkalemia, Supratherapeutic INR, Hypocalcemia, metabolic acidosis Chronic conditions: COPD, CAD, DM, HTN, HLD, paroxysmal AFib Based on my assessment of this patient, this patient meets a moderate complexity level of care. Patient has an acute diagnosis of acute renal failure resulting in severe metaboic acidosis and hyperkalemia with EKG changes that poses a threat to life or bodily function. Acute kidney injury: Multifactorial. Dehydration. DEBRA inhibitor. Diuretic. Recent Bacrim use? Underwent HD from 12/19-12/22. Renal function improving with Lasix 60 mg IV QD. Hopeful plans for DC HD catheter. Hold Lisinopril. Nephrology on board. Acute metabolic encephalopathy: Likely related to above. Acute blood loss anemia: GI consulted, recommended Coumadin reversal with vitamin K with no plans for EGD. Stable. No signs of active bleeding. Transfuse if < 7. Hyperphosphatemia: Phoslo 667 mg PO TID. Abdominal distention: Small bowel follow through shows no obstruction 12/25. Advance diet to Renal. Appreciate surgery recommendations. Resolved: Hyperkalemia CODE STATUS: FULL CODE DVT Prophylaxis: SCDs GI Prophylaxis: Protonix 40 mg IV QD. I have reviewed the following loan consultant notes: I have reviewed the results of the following tests: CBC, BMP, small bowel follow through. I have ordered the following tests: I have discussed the care of this patient with the following independent historian: I have independently interpreted the following test below: I have discussed the management of this patient with the following physician: Objective - Vital Signs Vital signs: Vital Signs Temp 98.0 F 12/26/22 04:16 Pulse 94 12/26/22 04:16 Resp 18 12/26/22 04:16 BP 169/70 12/26/22 04:16 Pulse Ox 95 12/26/22 04:16 FiO2 0 12/25/22 15:59 Intake & Output 12/25/22 12/26/22 12/26/22 18:59 06:59 18:59 Intake Total 118 540 Output Total 100 Balance 118 440 Weight 87.5 kg 86.5 kg Intake: Oral 118 540 Output: Urine 100 Other: Voiding Method Indwelling Catheter External Catheter # Voids 1 1 # Bowel Movements 1 1 - Labs CBC & Chem 7: 12/26/22 07:17 12/26/22 07:17 Labs: Abnormal Lab Results - Last 24 Hours (Table) 12/25/22 12/25/22 12/25/22 Range/Units 11:47 16:42 21:15 WBC (3.8-10.6) k/uL RBC (4.30-5.90) m/uL Hgb (13.0-17.5) gm/dL Hct (39.0-53.0) % Potassium (3.5-5.1) mmol/L BUN (9-20) mg/dL Creatinine (0.66-1.25) mg/dL Glucose (74-99) mg/dL POC Glucose (mg/dL) 206 H 243 H 211 H (70-110) mg/dL 12/26/22 12/26/22 12/26/22 Range/Units 05:14 07:17 07:17 WBC 15.3 H (3.8-10.6) k/uL RBC 3.44 L (4.30-5.90) m/uL Hgb 9.8 L (13.0-17.5) gm/dL Hct 30.3 L (39.0-53.0) % Potassium 3.3 L (3.5-5.1) mmol/L BUN 69 H (9-20) mg/dL Creatinine 3.00 H (0.66-1.25) mg/dL Glucose 215 H (74-99) mg/dL POC Glucose (mg/dL) 219 H (70-110) mg/dL
[2022-12-26 11:31] LABS: Glucose,Whole Blood 265 mg/dL (70-110)
--- NOTE | 2022-12-26 11:40 | P.PN ---
Subjective Patient is seen for follow-up for acute kidney injury. Started hemodialysis on 12/19/2022. However renal function has been improving and hemodialysis has been on hold. Urine output has increased. Last hemodialysis on 12/22/2022. 24 hour urine output at 1.3 L. Serum creatinine improved to 3.0 today. No significant complaints Objective - Vital Signs Vital signs: Vital Signs Temp 98.3 F 12/26/22 08:00 Pulse 82 12/26/22 08:00 Resp 18 12/26/22 08:00 BP 130/62 12/26/22 08:00 Pulse Ox 97 12/26/22 08:00 FiO2 0 12/25/22 15:59 Intake & Output 12/25/22 12/26/22 12/26/22 18:59 06:59 18:59 Intake Total 118 540 118 Output Total 100 Balance 118 440 118 Weight 87.5 kg 86.5 kg Intake: Oral 118 540 118 Output: Urine 100 Other: Voiding Method Indwelling Catheter External Catheter External Catheter # Voids 1 1 # Bowel Movements 1 1 1 - Exam Patient is awake, comfortable, no acute distress Examination of the heart S1 and S2 Examination of the lungs bilateral breath sounds are heard Abdomen is soft nontender Examination lower extremity shows no evidence of edema PSYCHIATRIC SECURITY NURSE exam grossly intact - Labs CBC & Chem 7: 12/26/22 07:17 12/26/22 07:17 Labs: Abnormal Lab Results - Last 24 Hours (Table) 12/25/22 12/25/22 12/25/22 Range/Units 11:47 16:42 21:15 WBC (3.8-10.6) k/uL RBC (4.30-5.90) m/uL Hgb (13.0-17.5) gm/dL Hct (39.0-53.0) % Potassium (3.5-5.1) mmol/L BUN (9-20) mg/dL Creatinine (0.66-1.25) mg/dL Glucose (74-99) mg/dL POC Glucose (mg/dL) 206 H 243 H 211 H (70-110) mg/dL 12/26/22 12/26/22 12/26/22 Range/Units 05:14 07:17 07:17 WBC 15.3 H (3.8-10.6) k/uL RBC 3.44 L (4.30-5.90) m/uL Hgb 9.8 L (13.0-17.5) gm/dL Hct 30.3 L (39.0-53.0) % Potassium 3.3 L (3.5-5.1) mmol/L BUN 69 H (9-20) mg/dL Creatinine 3.00 H (0.66-1.25) mg/dL Glucose 215 H (74-99) mg/dL POC Glucose (mg/dL) 219 H (70-110) mg/dL 12/26/22 Range/Units 11:29 WBC (3.8-10.6) k/uL RBC (4.30-5.90) m/uL Hgb (13.0-17.5) gm/dL Hct (39.0-53.0) % Potassium (3.5-5.1) mmol/L BUN (9-20) mg/dL Creatinine (0.66-1.25) mg/dL Glucose (74-99) mg/dL POC Glucose (mg/dL) 265 H (70-110) mg/dL Assessment and Plan Assessment: 1. Acute kidney injury ATN currently nonoliguric with improving renal function. Started hemodialysis on 12/19/2022. Currently on hold as renal function is improving. Last hemodialysis on 12/22/22. 2. Hyperkalemia improved post dialysis 3. CK D stage III a 4. Hypertension with CK D stage III a with baseline creatinine around 1.2 mg/dL 5. Volume overload currently improved Plan: Continue to hold dialysis Replace potassium Repeat labs in a.m. DC dialysis catheter
[2022-12-26] MEDS: POTASSIUM CHLORIDE ER 20 MEQ TAB.ER PO SCH ×2 (13:08→17:06)
--- NOTE | 2022-12-26 14:14 | P.PN ---
Subjective Progress Note Date: 12/26/22 CHIEF COMPLAINT: Abdominal distention HISTORY OF PRESENT ILLNESS: Patient lying in bed comfortably. He denies any abdominal pain he completed the small bowel follow-through yesterday and it showed no evidence of small bowel obstruction. Patient has had bowel movements. His abdomen is less distended. Denies any nausea or vomiting. Afebrile. WBC 12.5 up to 15.3 Hgb 9.8 potassium 3.3 creatinine 3.00 PHYSICAL EXAM: VITAL SIGNS: Reviewed GENERAL: Well-developed in no acute distress. HEENT: No sclera icterus. Extraocular movements grossly intact. Moist buccal mucosa. Head is atraumatic, normocephalic. Hears conversational speech. No nasal drainage. NECK: Supple without lymphadenopathy. CHEST: Non-labored respirations and equal bilateral excursions. CARDIOVASCULAR: Palpable 2+ radial pulses. ABDOMEN: Soft. Nontender. Less distended MUSCULOSKELETAL: No clubbing or cyanosis. NEUROLOGIC: No focal or lateralizing signs. Cranial nerves II through XII grossly intact. PSYCH: Pleasantly confused SKIN: Well perfused. Good skin turgor. ASSESSMENT: 1. Abdominal distention improving. No evidence of small bowel obstruction on small bowel follow-through x-ray 2. Acute kidney injury requiring emergent hemodialysis 3. Hyperkalemia improved 4. Metabolic encephalopathy 5. Diabetes mellitus 6. Coronary artery disease cardiac stents 6. Paroxysmal atrial fibrillation 7. Hypokalemia PLAN: -Advance diet to low fiber -Continue to treat hypokalemia and acute kidney injury -Encouraged patient to increase activity level if possible Physician Radio Machinist note has been reviewed by physician. Signing provider agrees with the documented findings, assessment, and plan of care. Objective - Vital Signs Vital signs: Vital Signs Temp 98.3 F 12/26/22 08:00 Pulse 82 12/26/22 08:00 Resp 18 12/26/22 08:00 BP 130/62 12/26/22 08:00 Pulse Ox 97 12/26/22 08:00 FiO2 0 12/25/22 15:59 Intake & Output 12/25/22 12/26/22 12/26/22 18:59 06:59 18:59 Intake Total 118 540 118 Output Total 100 Balance 118 440 118 Weight 87.5 kg 86.5 kg Intake: Oral 118 540 118 Output: Urine 100 Other: Voiding Method Indwelling Catheter External Catheter External Catheter # Voids 1 1 # Bowel Movements 1 1 1 - Labs CBC & Chem 7: 12/26/22 07:17 12/26/22 07:17 Labs: Abnormal Lab Results - Last 24 Hours (Table) 12/25/22 12/25/22 12/25/22 Range/Units 11:47 16:42 21:15 WBC (3.8-10.6) k/uL RBC (4.30-5.90) m/uL Hgb (13.0-17.5) gm/dL Hct (39.0-53.0) % Potassium (3.5-5.1) mmol/L BUN (9-20) mg/dL Creatinine (0.66-1.25) mg/dL Glucose (74-99) mg/dL POC Glucose (mg/dL) 206 H 243 H 211 H (70-110) mg/dL 12/26/22 12/26/22 12/26/22 Range/Units 05:14 07:17 07:17 WBC 15.3 H (3.8-10.6) k/uL RBC 3.44 L (4.30-5.90) m/uL Hgb 9.8 L (13.0-17.5) gm/dL Hct 30.3 L (39.0-53.0) % Potassium 3.3 L (3.5-5.1) mmol/L BUN 69 H (9-20) mg/dL Creatinine 3.00 H (0.66-1.25) mg/dL Glucose 215 H (74-99) mg/dL POC Glucose (mg/dL) 219 H (70-110) mg/dL
--- NOTE | 2022-12-26 15:55 | P.PN ---
Subjective Progress Note Date: 12/26/22 I am seeing this patient in new consultation today 12/19/2022 in the intensive care unit after the patient presented to the emergency room yesterday evening altered and very weak. He was found to be in acute renal failure and started on emergent hemodialysis. Patient is a 77-year-old white male with past medical history significant for diabetes mellitus, hyperlipidemia, hypertension, coronary artery disease with previous stents, paroxysmal atrial fibrillation anticoagulated on warfarin, COPD, and lower extremity cellulitis. Patient reportedly received treatment for bilateral lower extremity cellulitis on outpatient basis within the last month or so. Patient's unsure of the antibiotic, may have been on Bactrim. Patient is currently confused, and overall a poor historian. I did call the patient's who states that over the last 2 weeks he has not been eating or drinking much. He's been very weak and confused. On arrival to the emergency room yesterday evening the patient was found to be in acute renal failure. He was severely acidotic and hyperkalemic with a potassium of 9.45. There were EKG related changes with bradycardia and widening of the QRS complex. Patient was treated twice with a k cocktail including calcium gluconate, D50W, regular insulin, albuterol, and 2 A of sodium bicarb. Patient also received a dose Lokelma. A femoral hemodialysis catheter was placed by vascular surgery, and the patient is currently undergoing emergent hemodialysis. Patient was admitted to the intensive care unit. He is currently lying in bed, on room air, in no acute distress. Blood pressure normotensive, not on any vasopressors. 3 amps sodium bicarbonate in D5W is infusing at 100 ML's per hour. Heart rhythm currently normal sinus with rate of 80 bpm. Chest x-ray on arrival showed no acute cardiopulmonary process. CBC on arrival showed some mild leukocytosis with a WBC count of 11.2, hemoglobin 10.5, hematocrit 32.7, platelets 317. CMP on arrival showed a sodium 136, potassium 8.8, chloride 103, serum bicarbonate 9, anion gap 24, BUN 132, creatinine 9.45, glucose 247. Lactic acid was elevated at 6.4 and is down to 5.3. Urinalysis not concerning for UTI. Lipase mildly elevated at 485. LFTs not elevated. Patient is reporting some mild abdominal pain with palpation. No nausea or vomiting. Non-jaundiced. INR supratherapeutic at 4.6. reports that the patient had burgundy-colored loose stools at home. No further bloody stools or melena reported by nursing staff. CT of abdomen and pelvis without contrast did not show any acute abdominal process. No obstructive uropathy. Afebrile. Patient is currently hemodynamically stable, and monitored on the intensive care unit. , On today's evaluation of 12/20/2022, the patient is awake and alert and co mmunicating. He is still feeling weak and fatigued. He is currently on oxygen at 2 L and his breathing is not labored at this point in time. As mentioned earlier, the patient presented to us with an acute kidney injury. He had significant electronic abnormalities including a significant hyperkalemia. He underwent hemodialysis yesterday and since yesterday the patient's urine operas improving and the patient is producing approximately 100 mL of urine output. His potassium level is down to 5.4. This is slightly elevated compared to yesterday where his potassium level was at 4.7. BUN is at 80 with a creatinine of 7.35. Otherwise, the 10.8 with a hemoglobin of 9.5 and a platelet count of 252. Ammonia level was less than 9. His lactic acid level has normalized. Blood sugar is currently at 78. The discomfort of 10.8 with a hemoglobin of 9.5. No hypotension. No hemodynamic instability. Nephrology is on the case. Possible hemodialysis today. He was provided some clear liquid diet. No focal neurological deficits. He remains afebrile. On 12/21/22, the patient is still confused. He is not consistent in his ability to provide history. He seems to be uncomfortable. Is complaining of some chronic back pain. His abdomen is also slightly distended. Nevertheless, the CAT scan of the abdomen and this was done at time of admission showed no evidence of any ileus or bowel obstruction and the bowel decompressed. He also had some chronic osteophytic changes in degenerative arthritis involving the thoracolumbar spine. The patient remains in renal failure although he has improved his urine output. Is producing approximately 100 mL of urine output and he has a Quezada catheter in place. His last hemodialysis session was done yesterday. His BUN is at 48 with a creatinine of 5.3. Potassium levels at 4.9. The visit 110.5 with a hemoglobin of 9.1 and a platelet count of 2:15. He remains on oxygen at 2 L with a pulse ox of 98%. He is afebrile. He is hemodynamically stable. He is on normal saline at rate of 75 mL an hour. His cardiac rhythm is sinus. His anticoagulants are still on hold. On 12/22/2022, the patient is being seen on the medical floor. The patient was transferred out of the intensive care unit yesterday. He is still having a failure. Is producing urine output. Nevertheless, the plan is to proceed with another session of hemodialysis today. His mental status is gradually improving. Slightly more alert compared to yesterday. His having episodes of confusion. He remains on Lasix 60 mg IV every 24 hours. No chest pain. He was complaining of back pain which has subsided. He was found to have some abdominal distention and the patient had a repeat set of the abdomen that shows persistent dilated bowels and bowel loops. He has hypoactive bowel sounds. Nephrology is on the case. The patient is going to undergo hemodialysis with a total of 2 L of ultrafiltration. His labs showed evidence of 14.4 with a hemoglobin of 9.3, BUN is at 47 with a creatinine of 5.09 and a potassium level of 4.6 and sodium levels is 139. He is on 2 L of oxygen nasal cannula and his pulse ox is around 93% On today's evaluation of 12/23/2022, the patient is awake and communicating. His most recent hemodialysis was done yesterday. The patient is on Lasix 60 mg IV every 12 hours. Is producing adequate amount of urine output. He is more interactive. Confusion is gradually improving. No focal neurological deficits. The enzymes at 39 with a creatinine of 3.7. Sodium levels of 135 with a potassium level of 4.0. The white cell count at 16.9. Hemoglobin is at 9.4. He is afebrile. He is on 2 L of oxygen by nasal cannula with a pulse ox of 98%. He did have some ileus and x-ray of the abdomen from yesterday showed distended bowels, essentially the large bowel. No nausea. No vomiting. No emesis. He is passing gas. Today's evaluation of 12/24/2022, the patient is alert and communicating. Continues to have some mild abdominal distention. He is able to pass gas. No agitation. No restlessness. Remains on Lasix 80 mg IV every 24 hours. The patient is in negative fluid balance for now. Urine output is adequate and the patient has produced approximately 3.3 L of urine output since yesterday. The patient's BUN is at 50 with a creatinine of 3.5 and sodium levels of 136. The risk of 12.9 with a hemoglobin of 9.1. No other significant events otherwise for now. He was transferred out of the intensive care unit 48 hours ago. Farm Helper on the case. Patient was reevaluated today on 12/25/2022,patient seems to be doing better, he does have poor appetite and no bowel movements, denies any nausea vomiting or abdominal pain.patient has been on hemodialysis since 12/19/2022, and his last hemodialysis was given on 12/22 so far the patient seems to be making good urine output, 24-hour urine output was 1.3 L, and creatinine has been steadily improving down to 3.29 today. Dialysis is presently on hold, patient may or may not require hemodialysis again. This is being followed and addressed by nephrology on the case.CBC is relatively normal hemoglobin is 9.2 basic metabolic profile is normal BUN is 58.continues to have abdominal distention, possible ileus, and that being addressed by his admitting physician and general surgery on the case, still concerned about possible bowel obstruction. The patient is seen today 12/26/2022 in follow-up on the selective care unit. He is currently resting comfortably in bed. He is maintaining O2 saturations in the 90s on room air. His last hemodialysis was 12/22/2022. The small bowel series last evening revealed no evidence of bowel obstruction. Blood cultures revealed no growth. White count 15.3. Hemoglobin 9.8. Platelets 369. Sodium 141. Potassium 3.3. Bicarb 26. BUN 69. Creatinine 3.0. Urine output 1.3 L in the past 24 hours. No plans for dialysis today. Objective - Vital Signs Vital signs: Vital Signs Temp 98.4 F 12/26/22 12:00 Pulse 80 12/26/22 14:00 Resp 18 12/26/22 14:00 BP 136/62 12/26/22 12:00 Pulse Ox 97 12/26/22 12:00 FiO2 0 12/25/22 15:59 Intake & Output 12/25/22 12/26/22 12/26/22 18:59 06:59 18:59 Intake Total 118 540 118 Output Total 100 500 Balance 118 440 -382 Weight 87.5 kg 86.5 kg 86.5 kg Intake: Oral 118 540 118 Output: Urine 100 500 Other: Voiding Method Indwelling Catheter External Catheter External Catheter # Voids 1 1 # Bowel Movements 1 1 1 - Exam GENERAL EXAM: Alert, 77-year-old gentleman, on room air, fairly comfortable in no apparent distress. HEAD: Normocephalic. EYES: Normal reaction of pupils, equal size. NOSE: Clear with pink turbinates. THROAT: No erythema or exudates. NECK: No masses, no JVD. CHEST: No chest wall deformity. LUNGS: Equal air entry with no crackles, wheeze, rhonchi or dullness. CVS: S1 and S2 normal with no audible murmur, regular rhythm. ABDOMEN: No hepatosplenomegaly, normal bowel sounds, no guarding or rigidity. SPINE: No scoliosis or deformity SKIN: Scabbing and discoloration of the lower extremities CENTRAL NERVOUS SYSTEM: No focal deficits, tone is normal in all 4 extremities. EXTREMITIES: Scabbing and discoloration the lower extremities. No clubbing, no cyanosis. Peripheral pulses are intact. - Labs CBC & Chem 7: 12/26/22 07:17 12/26/22 07:17 Labs: Abnormal Lab Results - Last 24 Hours (Table) 12/25/22 12/25/22 12/26/22 Range/Units 16:42 21:15 05:14 WBC (3.8-10.6) k/uL RBC (4.30-5.90) m/uL Hgb (13.0-17.5) gm/dL Hct (39.0-53.0) % Potassium (3.5-5.1) mmol/L BUN (9-20) mg/dL Creatinine (0.66-1.25) mg/dL Glucose (74-99) mg/dL POC Glucose (mg/dL) 243 H 211 H 219 H (70-110) mg/dL 12/26/22 12/26/22 12/26/22 Range/Units 07:17 07:17 11:29 WBC 15.3 H (3.8-10.6) k/uL RBC 3.44 L (4.30-5.90) m/uL Hgb 9.8 L (13.0-17.5) gm/dL Hct 30.3 L (39.0-53.0) % Potassium 3.3 L (3.5-5.1) mmol/L BUN 69 H (9-20) mg/dL Creatinine 3.00 H (0.66-1.25) mg/dL Glucose 215 H (74-99) mg/dL POC Glucose (mg/dL) 265 H (70-110) mg/dL Assessment and Plan Assessment: Acute kidney injury, acute tubular necrosis with acute renal failure requiring emergent hemodialysis his last dialysis 12/22/2022. Current creatinine 3.0 and made 1.3 L of urine in the past 24 Acute metabolic encephalopathy resolved Severe metabolic anion gap metabolic acidosis and lactic acidosis resolved Possible ileus or bowel obstruction, small bowel series revealed no evidence of obstruction Type 2 diabetes Benign essential hypertension Dyslipidemia Paroxysmal atrial fibrillation normally on Coumadin Chronic obstructive pulmonary disease Obesity with BMI of 31.2 Chronic low back pain Severe dehydration upon admission Severe hyperkalemia on admission, resolved Plan: The patient was seen and evaluated Small bowel series, labs and medications reviewed No evidence of bowel obstruction Made 1.3 L of urine the past 24 hours Current creatinine 3.0 Remains on IV diuretics No plans for further hemodialysis per nephrology Stable and on room air Possible discharge to subacute rehab in the a.m. We will continue to follow I have personally seen and examined the patient, performed the documentation and the assessment and plan as written. Number of minutes spent on the visit: 10.
[2022-12-26 16:16] LABS: Glucose,Whole Blood 233 mg/dL (70-110)
[2022-12-26] MEDS: ATORVASTATIN 80 MG TAB PO SCH (19:52)
[2022-12-26 20:12] LABS: Glucose,Whole Blood 173 mg/dL (70-110)
[2022-12-27 06:20] LABS: Glucose,Whole Blood 233 mg/dL (70-110)
[2022-12-27] MEDS: CALCIUM ACETATE 667 MG TAB PO SCH ×3 (06:33→17:21)
[2022-12-27] MEDS: INSULIN ASPART (NovoLOG) 100 UNIT/ML VIAL SQ SCH ×4 (06:34→21:01)
[2022-12-27 06:56] LABS: HCT 30.8 % (39.0-53.0); HGB 9.8 gm/dL (13.0-17.5); Hypochromasia Slight; MCH 28.5 pg (25.0-35.0); MCHC 31.9 g/dL (31.0-37.0); MCV 89.3 fL (80.0-100.0); Mean Platelet Volume 8.3; Platelet Count 435 k/uL (150-450); RBC 3.45 m/uL (4.30-5.90); RDW 14.4 % (11.5-15.5); WBC 16.6 k/uL (3.8-10.6)
[2022-12-27 07:07] LABS: African American GFR (CKD) 25 (>60 ml/min/1.73 sqM); Anion Gap 15 mmol/L; Blood Urea Nitrogen 72 mg/dL (9-20); Calcium 9.4 mg/dL (8.4-10.2); Carbon Dioxide 22 mmol/L (22-30); Chloride 99 mmol/L (98-107); Glucose 220 mg/dL (74-99); Non-African American GFR(CKD) 22 (>60 ml/min/1.73 sqM); Sodium 136 mmol/L (137-145)
[2022-12-27] MEDS: METOPROLOL SUCCINATE (ER) 50 MG TAB.ER.24H PO SCH (09:17)
[2022-12-27] MEDS: hydrALAZINE HCL 50 MG TAB PO SCH ×3 (09:17→21:01)
[2022-12-27] MEDS: SIMETHICONE 80 MG CHEWABLE PO SCH ×4 (09:17→21:01)
[2022-12-27] MEDS: cloNIDine HCL 0.1 MG TAB PO SCH ×2 (09:17→19:44)
[2022-12-27] MEDS: amLODIPine 5 MG TAB PO SCH ×2 (09:17→19:44)
[2022-12-27] MEDS: PANTOPRAZOLE 40 MG/10 ML VIAL IV SCH (09:17)
[2022-12-27] MEDS: FUROSEMIDE 10 MG/ML 10 ML VIAL IV SCH (09:36)
[2022-12-27 11:55] LABS: Glucose,Whole Blood 302 mg/dL (70-110)
--- NOTE | 2022-12-27 12:34 | P.PN ---
Subjective Progress Note Date: 12/27/22 CHIEF COMPLAINT: Abdominal distention HISTORY OF PRESENT ILLNESS: Patient is sitting up in bed comfortably. He denies any abdominal pain. Per nurse patient has been having bowel movements. Appetite is poor. Only eating small amount of food. He does not like the food choices. Afebrile. WBC 16.6 Hgb 9.8 sodium 136 potassium 4 creatinine 2.7 PHYSICAL EXAM: VITAL SIGNS: Reviewed GENERAL: Well-developed in no acute distress. HEENT: No sclera icterus. Extraocular movements grossly intact. Moist buccal mucosa. Head is atraumatic, normocephalic. Hears conversational speech. No nasal drainage. NECK: Supple without lymphadenopathy. CHEST: Non-labored respirations and equal bilateral excursions. CARDIOVASCULAR: Palpable 2+ radial pulses. ABDOMEN: Soft. Nontender. Less distended MUSCULOSKELETAL: No clubbing or cyanosis. NEUROLOGIC: No focal or lateralizing signs. Cranial nerves II through XII grossly intact. PSYCH: Pleasantly confused SKIN: Well perfused. Good skin turgor. ASSESSMENT: 1. Abdominal distention improving. No evidence of small bowel obstruction on small bowel follow-through x-ray 2. Acute kidney injury requiring emergent hemodialysis 3. Hyperkalemia improved 4. Metabolic encephalopathy 5. Diabetes mellitus 6. Coronary artery disease cardiac stents 6. Paroxysmal atrial fibrillation 7. Hypokalemia PLAN: -Continue low fiber -Continue to treat hypokalemia and acute kidney injury -Encouraged patient to increase activity level if possible Physician Supervisor [employer] note has been reviewed by physician. Signing provider agrees with the documented findings, assessment, and plan of care. Objective - Vital Signs Vital signs: Vital Signs Temp 97.2 F L 12/27/22 08:15 Pulse 82 12/27/22 08:15 Resp 18 12/27/22 08:15 BP 145/63 12/27/22 08:15 Pulse Ox 97 12/27/22 08:15 FiO2 0 12/25/22 15:59 Intake & Output 12/26/22 12/27/22 12/27/22 18:59 06:59 18:59 Intake Total 118 Output Total 800 Balance -682 Weight 86.5 kg 86.5 kg Intake: Oral 118 Output: Urine 800 Other: Voiding Method External Catheter External Catheter # Bowel Movements 1 - Labs CBC & Chem 7: 12/27/22 06:21 12/27/22 06:21 Labs: Abnormal Lab Results - Last 24 Hours (Table) 12/26/22 12/26/22 12/26/22 Range/Units 11:29 16:15 20:11 WBC (3.8-10.6) k/uL RBC (4.30-5.90) m/uL Hgb (13.0-17.5) gm/dL Hct (39.0-53.0) % Sodium (137-145) mmol/L BUN (9-20) mg/dL Creatinine (0.66-1.25) mg/dL Glucose (74-99) mg/dL POC Glucose (mg/dL) 265 H 233 H 173 H (70-110) mg/dL 12/27/22 12/27/22 12/27/22 Range/Units 06:17 06:21 06:21 WBC 16.6 H (3.8-10.6) k/uL RBC 3.45 L (4.30-5.90) m/uL Hgb 9.8 L (13.0-17.5) gm/dL Hct 30.8 L (39.0-53.0) % Sodium 136 L (137-145) mmol/L BUN 72 H (9-20) mg/dL Creatinine 2.72 H (0.66-1.25) mg/dL Glucose 220 H (74-99) mg/dL POC Glucose (mg/dL) 233 H (70-110) mg/dL
--- NOTE | 2022-12-27 14:19 | P.PN ---
Subjective Patient is seen in follow-up for acute kidney injury. Underwent 2 treatments of hemodialysis this admission. Renal function gradually improving. On IV Lasix. Nonoliguric. Vital signs are stable. General: No acute distress. HEENT: Head exam is unremarkable. LUNGS:scattered rhonchi. HEART: Rate and Rhythm are regular. ABDOMEN: Nontender. Distention noted. EXTREMITITES: Chronic changes noted. Trace edema. Objective - Vital Signs Vital signs: Vital Signs Temp 97.5 F L 12/27/22 12:00 Pulse 79 12/27/22 12:00 Resp 18 12/27/22 12:00 BP 127/67 12/27/22 12:00 Pulse Ox 96 12/27/22 12:00 FiO2 0 12/25/22 15:59 Intake & Output 12/26/22 12/27/22 12/27/22 18:59 06:59 18:59 Intake Total 118 Output Total 800 600 Balance -682 -600 Weight 86.5 kg 86.5 kg Intake: Oral 118 Output: Urine 800 600 Other: Voiding Method External Catheter External Catheter External Catheter # Bowel Movements 1 2 - Labs CBC & Chem 7: 12/27/22 06:21 12/27/22 06:21 Labs: Abnormal Lab Results - Last 24 Hours (Table) 12/26/22 12/26/22 12/27/22 Range/Units 16:15 20:11 06:17 WBC (3.8-10.6) k/uL RBC (4.30-5.90) m/uL Hgb (13.0-17.5) gm/dL Hct (39.0-53.0) % Sodium (137-145) mmol/L BUN (9-20) mg/dL Creatinine (0.66-1.25) mg/dL Glucose (74-99) mg/dL POC Glucose (mg/dL) 233 H 173 H 233 H (70-110) mg/dL 12/27/22 12/27/22 12/27/22 Range/Units 06:21 06:21 11:53 WBC 16.6 H (3.8-10.6) k/uL RBC 3.45 L (4.30-5.90) m/uL Hgb 9.8 L (13.0-17.5) gm/dL Hct 30.8 L (39.0-53.0) % Sodium 136 L (137-145) mmol/L BUN 72 H (9-20) mg/dL Creatinine 2.72 H (0.66-1.25) mg/dL Glucose 220 H (74-99) mg/dL POC Glucose (mg/dL) 302 H (70-110) mg/dL Assessment and Plan Plan: Assessment: 1. Acute kidney injury secondary to ATN worsened with the use of Lasix and lisinopril. Creatinine 9.45 on admission. Creatinine 1.29 in December 2021. No hydronephrosis noted on imaging. UA fairly benign. Underwent 2 treatments of hemodialysis this admission. Renal function gradually improving. Creatinine 2.72 today. Nonoliguric. 2. Metabolic acidosis secondary to acute kidney injury, lactic acidosis from metformin. Improved with dialysis and bicarb drip. 3. Hyperkalemia secondary to acute kidney injury, lisinopril. Improved with medical management and dialysis. Subsequently became hypokalemic from diuresis. 4. Diabetes mellitus. 5. Benign hypertension. Controlled. 6. Coronary disease with prior stenting. 7. Hyperphosphatemia secondary to acute kidney injury. On PhosLo. Phosphorus level 5.4 dated 12/21/2022. 8. Volume overload. Improving with diuresis. 9. Possible bowel obstruction. Surgery following. Now on low fiber diet. Plan: Maintain IV Lasix. Transition to oral diuretics in the next 24-48 hours. Avoid nephrotoxins. Repeat phosphorus level. Discontinue dialysis catheter.
--- NOTE | 2022-12-27 15:02 | P.PN ---
Subjective Progress Note Date: 12/27/22 77 year old M with PMH of COPD, CAD, DM, HTN, HLD, paroxysmal AFib on coumadin presents to the ED for altered mentation and complaints of abdominal pain. Recently treated for cellulitis possibly with Bactrim for lower extremity cellulitis. Reports poor appetite and oral intake. Quezada catheter inserted in the ED, produced 200 cc of urine, no further output since. In the ED, he underwent extensive evaluation. Tlow 94.6F, bradycardic to 50s and well as tachycardic to 120s. CBC WBC count 11.2, Hg 10.5. INR 4.6. CMP Na 136, K 8.8, bicarb 9, BUN 132, Cr 9.45, glucose 247. Lactic acid 6.4. Mag 2.7. Amylase 182. Lipase 485. UA negative for LE or nitrite. EKG sinus bradycardia, wide complex rhythm, RBBB CT AP showed no acute abdominal process, no obstructive uropathy. CXR showed no acute process and cardiomegaly. Patient was admitted to ICU for further management. He was given Ca gluconate, albuterol neb, insulin with D50, Lokelma, sodium bicarbonate for hyperkalemia. He was given IV vitamin K for coumadin reversal. Vascular surgery was consulted for emergent hemodialysis access. He underwent HD from 12/19-12/22. He had a renal and bladder ultrasound completed which showed no hydronephrosis or nephrolithiasis. He was seen by gastroenterology for melena who recommended reversal of his INR and continued monitoring without immediate plans for endoscopy. He continued to make good urine output while on Lasix with renal function improving and plans were made to discontinue the HD catheter on 12/26. He developed some abdominal distention and pain thought to be ileus vs SBO, KUB on 12/21 showing dilated bowel loops in the abdomen. Surgery was consulted, and he was managed conservatively. Small bowel follow through on 12/25 showed no bowel obstruction and normal transit of oral contrast to the rectum. His diet was upgraded from CLD to Renal diet where he continued to show improvement. Hemodialysis catheter was discontinued on 12/27. His renal function continued to improve. 12/27 Patient was seen and examined at bedside. He is having profound watery diarrhea during the encounter. He reports poor appetite. No nausea or vomiting. No abdominal pain. Nephrology recommends one more day of IV lasix. CBC WBC 16.6, Hg 9.8. BMP Na 136, BUN 72, Cr 2.72, glucose 220. General: non toxic, no distress, appears at stated age Derm: warm, dry Head: atraumatic, normocephalic, symmetric Eyes: EOMI, no lid lag, anicteric sclera Mouth: no lip lesion, mucus membranes moist Cardiovascular: S1S2 reg, no murmur Lungs: Coarse BS bilateral, no rhonchi, no rales , no accessory muscle use Abdominal: Slightly distended, nontender to palpation, no guarding, + BS Ext: no gross muscle atrophy, no edema, no contractures Neuro: no focal neuro deficits Psych: Alert, oriented, appropriate affect Diarrhea Leukocytosis Acute kidney injury Acute metabolic encephalopathy Acute blood loss anemia Hyperphosphatemia Abdominal distention Resolved: Hyperkalemia, Supratherapeutic INR, Hypocalcemia, metabolic acidosis Chronic conditions: COPD, CAD, DM, HTN, HLD, paroxysmal AFib Based on my assessment of this patient, this patient meets a moderate complexity level of care. Patient has an acute diagnosis of acute renal failure resulting in severe metaboic acidosis and hyperkalemia with EKG changes that poses a threat to life or bodily function. Diarrhea: Watery. Non foul odor. Doubt C. Diff but will rule out. Obtain KUB. Leukocytosis: Trending up. No clear signs of infection. Rule out C. diff. BP and HR within normal limits. Afebrile. Continue to monitor. Acute kidney injury: Multifactorial. Dehydration. DEBRA inhibitor. Diuretic. Recent Bacrim use? Underwent HD from 12/19-12/22. Renal function improving with Lasix 60 mg IV QD. DC HD catheter today. Hold Lisinopril. Nephrology on board. Acute metabolic encephalopathy: Likely related to above. Acute blood loss anemia: GI consulted, recommended Coumadin reversal with vitamin K with no plans for EGD. Stable. No signs of active bleeding. Transfuse if < 7. Hyperphosphatemia: Phoslo 667 mg PO TID. Abdominal distention: Small bowel follow through shows no obstruction 12/25. Advance diet to Renal. Appreciate surgery recommendations. Resolved: Hyperkalemia CODE STATUS: FULL CODE DVT Prophylaxis: SCDs GI Prophylaxis: Protonix 40 mg IV QD. I have reviewed the following crm consultant notes: I have reviewed the results of the following tests: CBC, BMP, small bowel follow through. I have ordered the following tests: CBC, BMP, KUB, C. diff I have discussed the care of this patient with the following independent historian: I have independently interpreted the following test below: I have discussed the management of this patient with the following physician: Objective - Vital Signs Vital signs: Vital Signs Temp 97.5 F L 12/27/22 12:00 Pulse 79 12/27/22 12:00 Resp 18 12/27/22 12:00 BP 127/67 12/27/22 12:00 Pulse Ox 96 12/27/22 12:00 FiO2 0 12/25/22 15:59 Intake & Output 12/26/22 12/27/22 12/27/22 18:59 06:59 18:59 Intake Total 118 Output Total 800 600 Balance -682 -600 Weight 86.5 kg 86.5 kg Intake: Oral 118 Output: Urine 800 600 Other: Voiding Method External Catheter External Catheter External Catheter # Bowel Movements 1 2 - Labs CBC & Chem 7: 12/27/22 06:21 12/27/22 06:21 Labs: Abnormal Lab Results - Last 24 Hours (Table) 12/26/22 12/26/22 12/27/22 Range/Units 16:15 20:11 06:17 WBC (3.8-10.6) k/uL RBC (4.30-5.90) m/uL Hgb (13.0-17.5) gm/dL Hct (39.0-53.0) % Sodium (137-145) mmol/L BUN (9-20) mg/dL Creatinine (0.66-1.25) mg/dL Glucose (74-99) mg/dL POC Glucose (mg/dL) 233 H 173 H 233 H (70-110) mg/dL 12/27/22 12/27/22 12/27/22 Range/Units 06:21 06:21 11:53 WBC 16.6 H (3.8-10.6) k/uL RBC 3.45 L (4.30-5.90) m/uL Hgb 9.8 L (13.0-17.5) gm/dL Hct 30.8 L (39.0-53.0) % Sodium 136 L (137-145) mmol/L BUN 72 H (9-20) mg/dL Creatinine 2.72 H (0.66-1.25) mg/dL Glucose 220 H (74-99) mg/dL POC Glucose (mg/dL) 302 H (70-110) mg/dL
--- NOTE | 2022-12-27 15:23 | P.PN ---
Subjective Progress Note Date: 12/27/22 I am seeing this patient in new consultation today 12/19/2022 in the intensive care unit after the patient presented to the emergency room yesterday evening altered and very weak. He was found to be in acute renal failure and started on emergent hemodialysis. Patient is a 77-year-old white male with past medical history significant for diabetes mellitus, hyperlipidemia, hypertension, coronary artery disease with previous stents, paroxysmal atrial fibrillation anticoagulated on warfarin, COPD, and lower extremity cellulitis. Patient reportedly received treatment for bilateral lower extremity cellulitis on outpatient basis within the last month or so. Patient's unsure of the antibiotic, may have been on Bactrim. Patient is currently confused, and overall a poor historian. I did call the patient's who states that over the last 2 weeks he has not been eating or drinking much. He's been very weak and confused. On arrival to the emergency room yesterday evening the patient was found to be in acute renal failure. He was severely acidotic and hyperkalemic with a potassium of 9.45. There were EKG related changes with bradycardia and widening of the QRS complex. Patient was treated twice with a k cocktail including calcium gluconate, D50W, regular insulin, albuterol, and 2 A of sodium bicarb. Patient also received a dose Lokelma. A femoral hemodialysis catheter was placed by vascular surgery, and the patient is currently undergoing emergent hemodialysis. Patient was admitted to the intensive care unit. He is currently lying in bed, on room air, in no acute distress. Blood pressure normotensive, not on any vasopressors. 3 amps sodium bicarbonate in D5W is infusing at 100 ML's per hour. Heart rhythm currently normal sinus with rate of 80 bpm. Chest x-ray on arrival showed no acute cardiopulmonary process. CBC on arrival showed some mild leukocytosis with a WBC count of 11.2, hemoglobin 10.5, hematocrit 32.7, platelets 317. CMP on arrival showed a sodium 136, potassium 8.8, chloride 103, serum bicarbonate 9, anion gap 24, BUN 132, creatinine 9.45, glucose 247. Lactic acid was elevated at 6.4 and is down to 5.3. Urinalysis not concerning for UTI. Lipase mildly elevated at 485. LFTs not elevated. Patient is reporting some mild abdominal pain with palpation. No nausea or vomiting. Non-jaundiced. INR supratherapeutic at 4.6. reports that the patient had burgundy-colored loose stools at home. No further bloody stools or melena reported by nursing staff. CT of abdomen and pelvis without contrast did not show any acute abdominal process. No obstructive uropathy. Afebrile. Patient is currently hemodynamically stable, and monitored on the intensive care unit. , On today's evaluation of 12/20/2022, the patient is awake and alert and co mmunicating. He is still feeling weak and fatigued. He is currently on oxygen at 2 L and his breathing is not labored at this point in time. As mentioned earlier, the patient presented to us with an acute kidney injury. He had significant electronic abnormalities including a significant hyperkalemia. He underwent hemodialysis yesterday and since yesterday the patient's urine operas improving and the patient is producing approximately 100 mL of urine output. His potassium level is down to 5.4. This is slightly elevated compared to yesterday where his potassium level was at 4.7. BUN is at 80 with a creatinine of 7.35. Otherwise, the 10.8 with a hemoglobin of 9.5 and a platelet count of 252. Ammonia level was less than 9. His lactic acid level has normalized. Blood sugar is currently at 78. The discomfort of 10.8 with a hemoglobin of 9.5. No hypotension. No hemodynamic instability. Nephrology is on the case. Possible hemodialysis today. He was provided some clear liquid diet. No focal neurological deficits. He remains afebrile. On 12/21/22, the patient is still confused. He is not consistent in his ability to provide history. He seems to be uncomfortable. Is complaining of some chronic back pain. His abdomen is also slightly distended. Nevertheless, the CAT scan of the abdomen and this was done at time of admission showed no evidence of any ileus or bowel obstruction and the bowel decompressed. He also had some chronic osteophytic changes in degenerative arthritis involving the thoracolumbar spine. The patient remains in renal failure although he has improved his urine output. Is producing approximately 100 mL of urine output and he has a Quezada catheter in place. His last hemodialysis session was done yesterday. His BUN is at 48 with a creatinine of 5.3. Potassium levels at 4.9. The visit 110.5 with a hemoglobin of 9.1 and a platelet count of 2:15. He remains on oxygen at 2 L with a pulse ox of 98%. He is afebrile. He is hemodynamically stable. He is on normal saline at rate of 75 mL an hour. His cardiac rhythm is sinus. His anticoagulants are still on hold. On 12/22/2022, the patient is being seen on the medical floor. The patient was transferred out of the intensive care unit yesterday. He is still having a failure. Is producing urine output. Nevertheless, the plan is to proceed with another session of hemodialysis today. His mental status is gradually improving. Slightly more alert compared to yesterday. His having episodes of confusion. He remains on Lasix 60 mg IV every 24 hours. No chest pain. He was complaining of back pain which has subsided. He was found to have some abdominal distention and the patient had a repeat set of the abdomen that shows persistent dilated bowels and bowel loops. He has hypoactive bowel sounds. Nephrology is on the case. The patient is going to undergo hemodialysis with a total of 2 L of ultrafiltration. His labs showed evidence of 14.4 with a hemoglobin of 9.3, BUN is at 47 with a creatinine of 5.09 and a potassium level of 4.6 and sodium levels is 139. He is on 2 L of oxygen nasal cannula and his pulse ox is around 93% On today's evaluation of 12/23/2022, the patient is awake and communicating. His most recent hemodialysis was done yesterday. The patient is on Lasix 60 mg IV every 12 hours. Is producing adequate amount of urine output. He is more interactive. Confusion is gradually improving. No focal neurological deficits. The enzymes at 39 with a creatinine of 3.7. Sodium levels of 135 with a potassium level of 4.0. The white cell count at 16.9. Hemoglobin is at 9.4. He is afebrile. He is on 2 L of oxygen by nasal cannula with a pulse ox of 98%. He did have some ileus and x-ray of the abdomen from yesterday showed distended bowels, essentially the large bowel. No nausea. No vomiting. No emesis. He is passing gas. Today's evaluation of 12/24/2022, the patient is alert and communicating. Continues to have some mild abdominal distention. He is able to pass gas. No agitation. No restlessness. Remains on Lasix 80 mg IV every 24 hours. The patient is in negative fluid balance for now. Urine output is adequate and the patient has produced approximately 3.3 L of urine output since yesterday. The patient's BUN is at 50 with a creatinine of 3.5 and sodium levels of 136. The risk of 12.9 with a hemoglobin of 9.1. No other significant events otherwise for now. He was transferred out of the intensive care unit 48 hours ago. Master Control Technician on the case. Patient was reevaluated today on 12/25/2022,patient seems to be doing better, he does have poor appetite and no bowel movements, denies any nausea vomiting or abdominal pain.patient has been on hemodialysis since 12/19/2022, and his last hemodialysis was given on 12/22 so far the patient seems to be making good urine output, 24-hour urine output was 1.3 L, and creatinine has been steadily improving down to 3.29 today. Dialysis is presently on hold, patient may or may not require hemodialysis again. This is being followed and addressed by nephrology on the case.CBC is relatively normal hemoglobin is 9.2 basic metabolic profile is normal BUN is 58.continues to have abdominal distention, possible ileus, and that being addressed by his admitting physician and general surgery on the case, still concerned about possible bowel obstruction. The patient is seen today 12/26/2022 in follow-up on the selective care unit. He is currently resting comfortably in bed. He is maintaining O2 saturations in the 90s on room air. His last hemodialysis was 12/22/2022. The small bowel series last evening revealed no evidence of bowel obstruction. Blood cultures revealed no growth. White count 15.3. Hemoglobin 9.8. Platelets 369. Sodium 141. Potassium 3.3. Bicarb 26. BUN 69. Creatinine 3.0. Urine output 1.3 L in the past 24 hours. No plans for dialysis today. The patient is seen today 12/27/2022 in follow-up on the selective care unit. Resting comfortably in bed. Awake and alert in no acute distress. He denies any worsening shortness of breath, cough or congestion. He is maintaining O2 saturations in the 90s on room air. White count 16.6. Hemoglobin 9.8. Platelets 435. Sodium 136. Potassium 4.0. Bicarb 22. BUN 72. Creatinine 2.72. Glucose 220. He is continued on IV diuretics. Currently in a -682 ml balance. No plans for dialysis today. Objective - Vital Signs Vital signs: Vital Signs Temp 97.5 F L 12/27/22 12:00 Pulse 79 12/27/22 12:00 Resp 18 12/27/22 12:00 BP 127/67 12/27/22 12:00 Pulse Ox 96 12/27/22 12:00 FiO2 0 12/25/22 15:59 Intake & Output 12/26/22 12/27/22 12/27/22 18:59 06:59 18:59 Intake Total 118 Output Total 800 600 Balance -682 -600 Weight 86.5 kg 86.5 kg Intake: Oral 118 Output: Urine 800 600 Other: Voiding Method External Catheter External Catheter External Catheter # Bowel Movements 1 2 - Exam GENERAL EXAM: Alert, pleasant 77-year-old gentleman, resting in bed, on room air, comfortable in no apparent distress. HEAD: Normocephalic. EYES: Normal reaction of pupils, equal size. NOSE: Clear with pink turbinates. THROAT: No erythema or exudates. NECK: No masses, no JVD. CHEST: No chest wall deformity. LUNGS: Equal air entry with no crackles, wheeze, rhonchi or dullness. CVS: S1 and S2 normal with no audible murmur, regular rhythm. ABDOMEN: No hepatosplenomegaly, normal bowel sounds, no guarding or rigidity. SPINE: No scoliosis or deformity SKIN: Scabbing and discoloration of the lower extremities CENTRAL NERVOUS SYSTEM: No focal deficits, tone is normal in all 4 extremities. EXTREMITIES: Scabbing and discoloration the lower extremities. Trace edema. No clubbing, no cyanosis. Peripheral pulses are intact. - Labs CBC & Chem 7: 12/27/22 06:21 12/27/22 06:21 Labs: Abnormal Lab Results - Last 24 Hours (Table) 12/26/22 12/26/22 12/27/22 Range/Units 16:15 20:11 06:17 WBC (3.8-10.6) k/uL RBC (4.30-5.90) m/uL Hgb (13.0-17.5) gm/dL Hct (39.0-53.0) % Sodium (137-145) mmol/L BUN (9-20) mg/dL Creatinine (0.66-1.25) mg/dL Glucose (74-99) mg/dL POC Glucose (mg/dL) 233 H 173 H 233 H (70-110) mg/dL 12/27/22 12/27/22 12/27/22 Range/Units 06:21 06:21 11:53 WBC 16.6 H (3.8-10.6) k/uL RBC 3.45 L (4.30-5.90) m/uL Hgb 9.8 L (13.0-17.5) gm/dL Hct 30.8 L (39.0-53.0) % Sodium 136 L (137-145) mmol/L BUN 72 H (9-20) mg/dL Creatinine 2.72 H (0.66-1.25) mg/dL Glucose 220 H (74-99) mg/dL POC Glucose (mg/dL) 302 H (70-110) mg/dL Assessment and Plan Assessment: Acute kidney injury, acute tubular necrosis with acute renal failure requiring emergent hemodialysis his last dialysis 12/22/2022. Current creatinine 2.72 Acute metabolic encephalopathy resolved Severe metabolic anion gap metabolic acidosis and lactic acidosis resolved Possible ileus or bowel obstruction, small bowel series revealed no evidence of obstruction Type 2 diabetes Benign essential hypertension Dyslipidemia Paroxysmal atrial fibrillation normally on Coumadin Chronic obstructive pulmonary disease Obesity with BMI of 27.4 Chronic low back pain Severe dehydration upon admission Severe hyperkalemia on admission, resolved Plan: The patient was seen and evaluated Labs and medications reviewed Current creatinine 2.72 Remains on IV diuretics No plans for further hemodialysis Plan is to transfer to [facility] once cleared We will continue to follow I have personally seen and examined the patient, performed the documentation and the assessment and plan as written. Number of minutes spent on the visit: 10.
[2022-12-27 16:15] LABS: Glucose,Whole Blood 313 mg/dL (70-110)
--- NOTE | 2022-12-27 17:05 | XR ---
EXAMINATION TYPE: XR KUB portable DATE OF EXAM: 12/27/2022 COMPARISON: 12/25/2022 and 12/22/2022 HISTORY: 77-year-old male diarrhea and abdominal pain FINDINGS: Severely distended colon. Suspected sigmoid flexure dilated up to 9.7 cm. Oral contrast or air is seen collecting at the rectum. No obvious dilated small bowel loops. IMPRESSION: Ongoing marked diffuse colonic distention. The sigmoid colon estimated to measure up to 9 .7 cm. Oral contrast has progressed into the rectum. Correlate for severe colonic ileus. Correlate wi th lactic acid levels to exclude the possibility of an ischemic etiology. Previously measuring up to 9.1 cm.
[2022-12-27] MEDS: ATORVASTATIN 80 MG TAB PO SCH (19:44)
[2022-12-27 19:55] LABS: Glucose,Whole Blood 236 mg/dL (70-110)
--- NOTE | 2022-12-27 22:22 | OP ---
OPERATIVE REPORT DATE OF SERVICE : DIAGNOSIS: Acute on chronic renal failure. PROCEDURE: Removal of dialysis catheter, right femoral approach. DESCRIPTION OF PROCEDURE: Right groin was prepped. Stitches were removed. Dialysis catheter was removed. Pressures were held. The patient tolerated the procedure well. FRANCES / GOLDENN: [id number] /
[2022-12-28] MEDS: CALCIUM ACETATE 667 MG TAB PO SCH ×3 (05:05→16:57)
[2022-12-28 06:01] LABS: Glucose,Whole Blood 240 mg/dL (70-110)
[2022-12-28] MEDS: INSULIN ASPART (NovoLOG) 100 UNIT/ML VIAL SQ SCH ×4 (06:14→20:53)
[2022-12-28] MEDS: FUROSEMIDE 10 MG/ML 10 ML VIAL IV SCH (09:13)
[2022-12-28] MEDS: PANTOPRAZOLE 40 MG/10 ML VIAL IV SCH (09:14)
[2022-12-28] MEDS: SIMETHICONE 80 MG CHEWABLE PO SCH ×4 (09:15→20:54)
[2022-12-28] MEDS: hydrALAZINE HCL 50 MG TAB PO SCH ×3 (09:16→20:53)
[2022-12-28] MEDS: METOPROLOL SUCCINATE (ER) 50 MG TAB.ER.24H PO SCH (09:17)
[2022-12-28] MEDS: cloNIDine HCL 0.1 MG TAB PO SCH ×2 (09:17→20:52)
[2022-12-28] MEDS: amLODIPine 5 MG TAB PO SCH ×2 (09:17→20:53)
[2022-12-28 09:40] LABS: HCT 29.4 % (39.0-53.0); HGB 9.7 gm/dL (13.0-17.5); MCH 28.8 pg (25.0-35.0); MCHC 32.8 g/dL (31.0-37.0); MCV 87.6 fL (80.0-100.0); Platelet Count 429 k/uL (150-450); RBC 3.36 m/uL (4.30-5.90); RDW 14.2 % (11.5-15.5); WBC 12.8 k/uL (3.8-10.6)
--- NOTE | 2022-12-28 09:50 | P.PN ---
Progress Note - Text Progress Note Date: 12/28/22 Patient's resting comfortably in his bed. Patient states he had a bowel movement yesterday and is having flatus. On exam vital signs appear stable. Abdomen soft. Resolving ileus. Patient will have his diet advanced as tolerated.
[2022-12-28 09:56] LABS: African American GFR (CKD) 27 (>60 ml/min/1.73 sqM); Anion Gap 10 mmol/L; Blood Urea Nitrogen 70 mg/dL (9-20); Calcium 9.4 mg/dL (8.4-10.2); Carbon Dioxide 28 mmol/L (22-30); Chloride 99 mmol/L (98-107); Glucose 210 mg/dL (74-99); Non-African American GFR(CKD) 23 (>60 ml/min/1.73 sqM); Potassium 3.8 mmol/L (3.5-5.1); Sodium 137 mmol/L (137-145)
--- NOTE | 2022-12-28 10:55 | P.PN ---
Subjective Progress Note Date: 12/28/22 I am seeing this patient in new consultation today 12/19/2022 in the intensive care unit after the patient presented to the emergency room yesterday evening altered and very weak. He was found to be in acute renal failure and started on emergent hemodialysis. Patient is a 77-year-old white male with past medical history significant for diabetes mellitus, hyperlipidemia, hypertension, coronary artery disease with previous stents, paroxysmal atrial fibrillation anticoagulated on warfarin, COPD, and lower extremity cellulitis. Patient reportedly received treatment for bilateral lower extremity cellulitis on outpatient basis within the last month or so. Patient's unsure of the antibiotic, may have been on Bactrim. Patient is currently confused, and overall a poor historian. I did call the patient's who states that over the last 2 weeks he has not been eating or drinking much. He's been very weak and confused. On arrival to the emergency room yesterday evening the patient was found to be in acute renal failure. He was severely acidotic and hyperkalemic with a potassium of 9.45. There were EKG related changes with bradycardia and widening of the QRS complex. Patient was treated twice with a k cocktail including calcium gluconate, D50W, regular insulin, albuterol, and 2 A of sodium bicarb. Patient also received a dose Lokelma. A femoral hemodialysis catheter was placed by vascular surgery, and the patient is currently undergoing emergent hemodialysis. Patient was admitted to the intensive care unit. He is currently lying in bed, on room air, in no acute distress. Blood pressure normotensive, not on any vasopressors. 3 amps sodium bicarbonate in D5W is infusing at 100 ML's per hour. Heart rhythm currently normal sinus with rate of 80 bpm. Chest x-ray on arrival showed no acute cardiopulmonary process. CBC on arrival showed some mild leukocytosis with a WBC count of 11.2, hemoglobin 10.5, hematocrit 32.7, platelets 317. CMP on arrival showed a sodium 136, potassium 8.8, chloride 103, serum bicarbonate 9, anion gap 24, BUN 132, creatinine 9.45, glucose 247. Lactic acid was elevated at 6.4 and is down to 5.3. Urinalysis not concerning for UTI. Lipase mildly elevated at 485. LFTs not elevated. Patient is reporting some mild abdominal pain with palpation. No nausea or vomiting. Non-jaundiced. INR supratherapeutic at 4.6. reports that the patient had burgundy-colored loose stools at home. No further bloody stools or melena reported by nursing staff. CT of abdomen and pelvis without contrast did not show any acute abdominal process. No obstructive uropathy. Afebrile. Patient is currently hemodynamically stable, and monitored on the intensive care unit. , On today's evaluation of 12/20/2022, the patient is awake and alert and co mmunicating. He is still feeling weak and fatigued. He is currently on oxygen at 2 L and his breathing is not labored at this point in time. As mentioned earlier, the patient presented to us with an acute kidney injury. He had significant electronic abnormalities including a significant hyperkalemia. He underwent hemodialysis yesterday and since yesterday the patient's urine operas improving and the patient is producing approximately 100 mL of urine output. His potassium level is down to 5.4. This is slightly elevated compared to yesterday where his potassium level was at 4.7. BUN is at 80 with a creatinine of 7.35. Otherwise, the 10.8 with a hemoglobin of 9.5 and a platelet count of 252. Ammonia level was less than 9. His lactic acid level has normalized. Blood sugar is currently at 78. The discomfort of 10.8 with a hemoglobin of 9.5. No hypotension. No hemodynamic instability. Nephrology is on the case. Possible hemodialysis today. He was provided some clear liquid diet. No focal neurological deficits. He remains afebrile. On 12/21/22, the patient is still confused. He is not consistent in his ability to provide history. He seems to be uncomfortable. Is complaining of some chronic back pain. His abdomen is also slightly distended. Nevertheless, the CAT scan of the abdomen and this was done at time of admission showed no evidence of any ileus or bowel obstruction and the bowel decompressed. He also had some chronic osteophytic changes in degenerative arthritis involving the thoracolumbar spine. The patient remains in renal failure although he has improved his urine output. Is producing approximately 100 mL of urine output and he has a Quezada catheter in place. His last hemodialysis session was done yesterday. His BUN is at 48 with a creatinine of 5.3. Potassium levels at 4.9. The visit 110.5 with a hemoglobin of 9.1 and a platelet count of 2:15. He remains on oxygen at 2 L with a pulse ox of 98%. He is afebrile. He is hemodynamically stable. He is on normal saline at rate of 75 mL an hour. His cardiac rhythm is sinus. His anticoagulants are still on hold. On 12/22/2022, the patient is being seen on the medical floor. The patient was transferred out of the intensive care unit yesterday. He is still having a failure. Is producing urine output. Nevertheless, the plan is to proceed with another session of hemodialysis today. His mental status is gradually improving. Slightly more alert compared to yesterday. His having episodes of confusion. He remains on Lasix 60 mg IV every 24 hours. No chest pain. He was complaining of back pain which has subsided. He was found to have some abdominal distention and the patient had a repeat set of the abdomen that shows persistent dilated bowels and bowel loops. He has hypoactive bowel sounds. Nephrology is on the case. The patient is going to undergo hemodialysis with a total of 2 L of ultrafiltration. His labs showed evidence of 14.4 with a hemoglobin of 9.3, BUN is at 47 with a creatinine of 5.09 and a potassium level of 4.6 and sodium levels is 139. He is on 2 L of oxygen nasal cannula and his pulse ox is around 93% On today's evaluation of 12/23/2022, the patient is awake and communicating. His most recent hemodialysis was done yesterday. The patient is on Lasix 60 mg IV every 12 hours. Is producing adequate amount of urine output. He is more interactive. Confusion is gradually improving. No focal neurological deficits. The enzymes at 39 with a creatinine of 3.7. Sodium levels of 135 with a potassium level of 4.0. The white cell count at 16.9. Hemoglobin is at 9.4. He is afebrile. He is on 2 L of oxygen by nasal cannula with a pulse ox of 98%. He did have some ileus and x-ray of the abdomen from yesterday showed distended bowels, essentially the large bowel. No nausea. No vomiting. No emesis. He is passing gas. Today's evaluation of 12/24/2022, the patient is alert and communicating. Continues to have some mild abdominal distention. He is able to pass gas. No agitation. No restlessness. Remains on Lasix 80 mg IV every 24 hours. The patient is in negative fluid balance for now. Urine output is adequate and the patient has produced approximately 3.3 L of urine output since yesterday. The patient's BUN is at 50 with a creatinine of 3.5 and sodium levels of 136. The risk of 12.9 with a hemoglobin of 9.1. No other significant events otherwise for now. He was transferred out of the intensive care unit 48 hours ago. Facility Security Officer on the case. Patient was reevaluated today on 12/25/2022,patient seems to be doing better, he does have poor appetite and no bowel movements, denies any nausea vomiting or abdominal pain.patient has been on hemodialysis since 12/19/2022, and his last hemodialysis was given on 12/22 so far the patient seems to be making good urine output, 24-hour urine output was 1.3 L, and creatinine has been steadily improving down to 3.29 today. Dialysis is presently on hold, patient may or may not require hemodialysis again. This is being followed and addressed by nephrology on the case.CBC is relatively normal hemoglobin is 9.2 basic metabolic profile is normal BUN is 58.continues to have abdominal distention, possible ileus, and that being addressed by his admitting physician and general surgery on the case, still concerned about possible bowel obstruction. The patient is seen today 12/26/2022 in follow-up on the selective care unit. He is currently resting comfortably in bed. He is maintaining O2 saturations in the 90s on room air. His last hemodialysis was 12/22/2022. The small bowel series last evening revealed no evidence of bowel obstruction. Blood cultures revealed no growth. White count 15.3. Hemoglobin 9.8. Platelets 369. Sodium 141. Potassium 3.3. Bicarb 26. BUN 69. Creatinine 3.0. Urine output 1.3 L in the past 24 hours. No plans for dialysis today. The patient is seen today 12/27/2022 in follow-up on the selective care unit. Resting comfortably in bed. Awake and alert in no acute distress. He denies any worsening shortness of breath, cough or congestion. He is maintaining O2 saturations in the 90s on room air. White count 16.6. Hemoglobin 9.8. Platelets 435. Sodium 136. Potassium 4.0. Bicarb 22. BUN 72. Creatinine 2.72. Glucose 220. He is continued on IV diuretics. Currently in a -682 ml balance. No plans for dialysis today. The patient is seen today 12/28/2022 in follow-up on the selective care unit. He remains awake and alert in no acute distress. Denies any shortness of breath, cough or congestion. Denies to maintain O2 saturations in the upper 90s on room air. He's been afebrile. Hemodynamically stable. KUB portable x-ray yesterday revealed ongoing marketed diffuse colonic distention. Sigmoid colon estimated to measure up to 9.7 cm. Oral contrast has progressed into the rectum. Ricki elate for severe colonic ileus. The patient states he is having significant bowel movements. Denies any abdominal discomfort. He is tolerating a consistent carbohydrate diet. White count 12.8. Hemoglobin 9.7. Sodium 137. Potassium 3.8. Bicarb 28. BUN 70. Creatinine 2.57. Glucose 210. Objective - Vital Signs Vital signs: Vital Signs Temp 97.6 F 12/28/22 08:00 Pulse 77 12/28/22 08:00 Resp 20 12/28/22 08:00 BP 156/66 12/28/22 08:00 Pulse Ox 99 12/28/22 08:00 FiO2 0 12/25/22 15:59 Intake & Output 12/27/22 12/28/22 12/28/22 18:59 06:59 18:59 Intake Total 240 0 Output Total 600 400 Balance -360 -400 Intake: Oral 240 0 Output: Urine 600 400 Other: Voiding Method External Catheter External Catheter # Voids 2 # Bowel Movements 2 1 - Exam GENERAL EXAM: Alert, pleasant 77-year-old gentleman, on room air, in no apparent distress. HEAD: Normocephalic. EYES: Normal reaction of pupils, equal size. NOSE: Clear with pink turbinates. THROAT: No erythema or exudates. NECK: No masses, no JVD. CHEST: No chest wall deformity. LUNGS: Equal air entry with no crackles, wheeze, rhonchi or dullness. CVS: S1 and S2 normal with no audible murmur, regular rhythm. ABDOMEN: No hepatosplenomegaly, normal bowel sounds, no guarding or rigidity. SPINE: No scoliosis or deformity SKIN: Scabbing and discoloration of the lower extremities CENTRAL NERVOUS SYSTEM: No focal deficits, tone is normal in all 4 extremities. EXTREMITIES: Scabbing and discoloration the lower extremities. Trace edema. No clubbing, no cyanosis. Peripheral pulses are intact. - Labs CBC & Chem 7: 12/28/22 09:09 12/28/22 09:09 Labs: Abnormal Lab Results - Last 24 Hours (Table) 12/27/22 12/27/22 12/27/22 Range/Units 11:53 16:14 19:52 WBC (3.8-10.6) k/uL RBC (4.30-5.90) m/uL Hgb (13.0-17.5) gm/dL Hct (39.0-53.0) % BUN (9-20) mg/dL Creatinine (0.66-1.25) mg/dL Glucose (74-99) mg/dL POC Glucose (mg/dL) 302 H 313 H 236 H (70-110) mg/dL 12/28/22 12/28/22 12/28/22 Range/Units 05:56 09:09 09:09 WBC 12.8 H (3.8-10.6) k/uL RBC 3.36 L (4.30-5.90) m/uL Hgb 9.7 L (13.0-17.5) gm/dL Hct 29.4 L (39.0-53.0) % BUN 70 H (9-20) mg/dL Creatinine 2.57 H (0.66-1.25) mg/dL Glucose 210 H (74-99) mg/dL POC Glucose (mg/dL) 240 H (70-110) mg/dL Assessment and Plan Assessment: Acute kidney injury, acute tubular necrosis with acute renal failure requiring emergent hemodialysis his last dialysis 12/22/2022. Current creatinine 2.57 Acute metabolic encephalopathy, resolved Severe metabolic anion gap metabolic acidosis and lactic acidosis, resolved Resolving ileus Type 2 diabetes Benign essential hypertension Dyslipidemia Paroxysmal atrial fibrillation normally on Coumadin Chronic obstructive pulmonary disease Obesity with BMI of 27.4 Chronic low back pain Severe dehydration upon admission Severe hyperkalemia on admission, resolved Plan: The patient was seen and evaluated KUB x-ray, labs and medications reviewed Current creatinine 2.57 Remains on IV diuretics No plans for further hemodialysis He is having bowel movements, passing flatus Plan is to transfer to [facility] once cleared by other consultants This patient was seen and independently by the nurse practitioner I have personally seen and examined the patient, performed the documentation and the assessment and plan as written. Number of minutes spent on the visit: 24.
[2022-12-28 11:35] LABS: Glucose,Whole Blood 231 mg/dL (70-110)
[2022-12-28] MEDS: MORPHINE SULFATE 2 MG/ML SYRINGE IVP PRN (12:41)
--- NOTE | 2022-12-28 12:49 | P.PN ---
Subjective Progress Note Date: 12/28/22 Follow-up for acute kidney injury. Started on hemodialysis on 12/19/2022. Last dialysis was on Sunday. Urine output of 1.0 L in the last 24 hours. Objective - Vital Signs Vital signs: Vital Signs Temp 97.5 F L 12/28/22 12:00 Pulse 76 12/28/22 12:00 Resp 22 12/28/22 12:00 BP 139/58 12/28/22 12:00 Pulse Ox 95 12/28/22 12:00 FiO2 0 12/25/22 15:59 Intake & Output 12/27/22 12/28/22 12/28/22 18:59 06:59 18:59 Intake Total 240 0 Output Total 600 400 Balance -360 -400 Intake: Oral 240 0 Output: Urine 600 400 Other: Voiding Method External Catheter External Catheter # Voids 2 # Bowel Movements 2 1 - Exam No acute distress S1-S2 heard Decreased breath sounds No edema - Labs CBC & Chem 7: 12/28/22 09:09 12/28/22 09:09 Labs: Abnormal Lab Results - Last 24 Hours (Table) 12/27/22 12/27/22 12/28/22 Range/Units 16:14 19:52 05:56 WBC (3.8-10.6) k/uL RBC (4.30-5.90) m/uL Hgb (13.0-17.5) gm/dL Hct (39.0-53.0) % BUN (9-20) mg/dL Creatinine (0.66-1.25) mg/dL Glucose (74-99) mg/dL POC Glucose (mg/dL) 313 H 236 H 240 H (70-110) mg/dL 12/28/22 12/28/22 12/28/22 Range/Units 09:09 09:09 11:33 WBC 12.8 H (3.8-10.6) k/uL RBC 3.36 L (4.30-5.90) m/uL Hgb 9.7 L (13.0-17.5) gm/dL Hct 29.4 L (39.0-53.0) % BUN 70 H (9-20) mg/dL Creatinine 2.57 H (0.66-1.25) mg/dL Glucose 210 H (74-99) mg/dL POC Glucose (mg/dL) 231 H (70-110) mg/dL Assessment and Plan Assessment: #1 dialysis dependent acute kidney injury secondary to hemodynamic ATN. -Baseline creatinine 1.29 MG per DL in December 2021. -Urine analysis bland #2 hyperkalemia, resolved on dialysis #3 diabetes mellitus #4 hypertension with chronic kidney disease #5 chronic kidney disease stage III a #6 volume overload Plan: #1 last hemodialysis on 12/22/2022. #2 with good urine output, Jordan discontinued. #3 avoid nephrotoxic agents and hypotensive episodes
--- NOTE | 2022-12-28 14:45 | P.PN ---
Subjective Progress Note Date: 12/28/22 (delayed charting seen at approx 0915) Patient is a 77-year-old male with COPD, diabetes, hypertension, dyslipidemia, prior myocardial infarction who presented to the emergency department due to abdominal pain and altered mentation. On arrival to the emergency department his vital signs within normal limits. Laboratory analysis was remarkable for white blood cell count 11.2, hemoglobin 10.5, potassium 8.8, carbon dioxide 9, BUN 132, creatinine 9.45, lactic acid 6.4, and lipase 485. He was also noted to have EKG changes significant for hyperkalemia. CT abdomen and pelvis shows no acute abdominal process. Chest x-ray shows no acute process. Patient was subsequently admitted to the ICU and arrangements were made for emergent dialysis. Pulmonary, vascular surgery, and nephrology were consulted. Vascular surgery placed a temporary dialysis catheter in the right groin. Patient subsequently underwent emergent hemodialysis. He had a renal and bladder ultrasound completed which showed no hydronephrosis or nephrolithiasis. He was seen by gastroenterology who recommended reversal of his INR and continued monitoring without immediate plans for endoscopy. He continued to do well without recurrent bleeding. He did develop some abdomianl pain and was found to have an ileus which was treated conservativtly as small bowel follow through showed normal transit time without obstruction. His kidney function improved and his temporary HD cath was removed. Patient seen and exmained at bedside with daughter present. He deneis any abdominal pain, nasuea, or diarrhea. He reports one large BM yesterday. He has no other complaints.We disucssed why he needs to go to rehab and that the plan is for rehab tomorrow and he is agreeable. General: non toxic, no distress, appears at stated age Cardiovascular: S1S2 reg, no murmur, positive posterior tibial pulse bilateral, Lungs: CTA b/l bilateral, no rhonchi, no rales , no accessory muscle use Abdominal: soft, distended nontender to palpation, no guarding, no appreciable organomegaly Ext: no gross muscle atrophy, no edema b/l lower extremities, no contractures Neuro: CN II-XI grossly intact, no focal neuro deficits Psych: Alert, oriented, normal affect Assessment/Plan: Acute kidney injury, improved Anion gap metabolic acidosis, resolved Toxic metabolic encephalopathy. improved. Hyperphosphatemia Aneima, acute blood loss -Nephrology note reviewed: Last hemodialysis 12/22/22, he quit in discontinued, good urine output -Pulmonary note reviewed: Having bowel movements and passing flatus. - s/p 3 rounds of HD - check Phosphorus in the morning to see if patient continues to require phoslo - Safe and supportive environment - Hold lisinopril 20 mg twice daily -Lasix 60 mg IV daily - Follow basic metabolic profile for renal recovery - aricept resumed Ileus -Patient does not currently have clinical signs of ileus as he is having normal formed bowel movements, no abdominal pain, feeling hungry without vomiting and tolerating a diet -Resume regular diet -Surgery note reviewed: Resolving ileus, advance diet -Patient had normal transit time on small bowel follow-through on 12/25/22 -Continue with Protonix 40 mg IV daily Supratherapeutic INR on admission,now subtherapeutic - resume coumadin once known if patient will require intervention for obstruction - INR in AM Diabetes mellitus type II - A1C 8 -Continue with sliding scale -Follow blood sugars - levemir 8 units tonight -Hold glipizide, metformin, and Lantus 30 units Hyperkalemia, resolved Hypocalcemia, resolved Chronic conditions: COPD, CAD, HTN, HLD, paroxysmal AFib Plan is discharge to [facility] in the morning Imaging: None new Hospital course imaging: Renal and bladder ultrasound: no hydronephrosis or nephrolithiasis Chest [id number] improvement in the interstitial congestion Abdominal x-ray: Dilated bowel loops correlate for obstruction Lumbar spine x-ray: Diffuse osteopenia with multifocal degenerative changes, dilated bowel loops correlate for ileus versus obstruction Abdominal x-ray: Continued distention of the colon Multiple follow-through: Normal transit time to rectum with 2 hours Data Review: Labs reviewed from 12/28 includes CBC and basic metabolic profile which are remarkable for white blood cell count 12.8, hemoglobin 9.7, BUN 70, creatinine 2.57, and glucose of 231 DVT prophylaxis: Start heparin 5000 units 3 times daily Anticipated discharge date: Pending Clinical Course Anticipated discharge place: Pending Clinical Course This dictation was prepared using [employer] voice recognition software. Though every attempt is made to correct errors during dictation some may still exist. Objective - Vital Signs Vital signs: Vital Signs Temp 97.5 F L 12/28/22 12:00 Pulse 76 11/23/23 12:00 Resp 22 12/28/22 12:00 BP 139/58 12/28/22 12:00 Pulse Ox 95 12/28/22 12:00 FiO2 0 12/25/22 15:59 Intake & Output 12/27/22 12/28/22 12/28/22 18:59 06:59 18:59 Intake Total 240 0 Output Total 600 400 200 Balance -360 -400 -200 Intake: Oral 240 0 Output: Urine 600 400 200 Other: Voiding Method External Catheter External Catheter Urinal # Voids 2 # Bowel Movements 2 1 - Labs CBC & Chem 7: 12/28/22 09:09 12/28/22 09:09 Labs: Abnormal Lab Results - Last 24 Hours (Table) 12/27/22 12/27/22 12/28/22 Range/Units 16:14 19:52 05:56 WBC (3.8-10.6) k/uL RBC (4.30-5.90) m/uL Hgb (13.0-17.5) gm/dL Hct (39.0-53.0) % BUN (9-20) mg/dL Creatinine (0.66-1.25) mg/dL Glucose (74-99) mg/dL POC Glucose (mg/dL) 313 H 236 H 240 H (70-110) mg/dL 12/28/22 12/28/22 12/28/22 Range/Units 09:09 09:09 11:33 WBC 12.8 H (3.8-10.6) k/uL RBC 3.36 L (4.30-5.90) m/uL Hgb 9.7 L (13.0-17.5) gm/dL Hct 29.4 L (39.0-53.0) % BUN 70 H (9-20) mg/dL Creatinine 2.57 H (0.66-1.25) mg/dL Glucose 210 H (74-99) mg/dL POC Glucose (mg/dL) 231 H (70-110) mg/dL
[2022-12-28 15:41] LABS: INR 1.1 (<1.2)
[2022-12-28 16:27] LABS: Glucose,Whole Blood 342 mg/dL (70-110)
[2022-12-28] MEDS ORDERED: WARFARIN 5 MG TAB PO ONE (18:00)
[2022-12-28 20:10] LABS: Glucose,Whole Blood 290 mg/dL (70-110)
[2022-12-28] MEDS: ATORVASTATIN 80 MG TAB PO SCH (20:52)
[2022-12-28] MEDS ORDERED: DONEPEZIL 10 MG TAB PO SCH (21:00)
[2022-12-28] MEDS ORDERED: INSULIN DETEMIR (LEVEMIR) 100 UNIT/ML SYR SQ SCH (21:00)
[2022-12-29 02:04] LABS: Glucose,Whole Blood 232 mg/dL (70-110)
[2022-12-29 05:58] LABS: Glucose,Whole Blood 233 mg/dL (70-110)
[2022-12-29] MEDS: INSULIN ASPART (NovoLOG) 100 UNIT/ML VIAL SQ SCH ×2 (06:31→11:56)
[2022-12-29] MEDS: CALCIUM ACETATE 667 MG TAB PO SCH ×2 (06:31→11:56)
[2022-12-29] MEDS ORDERED: busPIRone HCl 5 MG TAB PO SCH (09:00)
[2022-12-29 09:18] LABS: HCT 29.8 % (39.0-53.0); HGB 9.4 gm/dL (13.0-17.5); MCH 28.1 pg (25.0-35.0); MCHC 31.6 g/dL (31.0-37.0); MCV 89.1 fL (80.0-100.0); Mean Platelet Volume 9.8; Platelet Count 384 k/uL (150-450); RBC 3.35 m/uL (4.30-5.90); RDW 14.2 % (11.5-15.5); WBC 12.7 k/uL (3.8-10.6)
[2022-12-29 09:35] LABS: African American GFR (CKD) 33 (>60 ml/min/1.73 sqM); Anion Gap 12 mmol/L; Blood Urea Nitrogen 77 mg/dL (9-20); Calcium 8.9 mg/dL (8.4-10.2); Carbon Dioxide 25 mmol/L (22-30); Chloride 98 mmol/L (98-107); Glucose 275 mg/dL (74-99); Non-African American GFR(CKD) 28 (>60 ml/min/1.73 sqM); Potassium 3.8 mmol/L (3.5-5.1); Sodium 135 mmol/L (137-145)
--- NOTE | 2022-12-29 09:45 | P.PN ---
Progress Note - Text Progress Note Date: 12/29/22 Patient's resting comfortably in his bed. He denies any significant abdominal pain. Patient states he has had flatus and bowel movements. On exam vital signs appear stable. Abdomen soft. Resolving ileus. Patient appeared to receive supportive care. No surgical intervention is planned.
[2022-12-29] MEDS: amLODIPine 5 MG TAB PO SCH (10:10)
[2022-12-29] MEDS: FUROSEMIDE 10 MG/ML 10 ML VIAL IV SCH (10:10)
[2022-12-29] MEDS: hydrALAZINE HCL 50 MG TAB PO SCH (10:10)
[2022-12-29] MEDS: PANTOPRAZOLE 40 MG/10 ML VIAL IV SCH (10:10)
[2022-12-29] MEDS: SIMETHICONE 80 MG CHEWABLE PO SCH ×2 (10:11→11:55)
[2022-12-29] MEDS: METOPROLOL SUCCINATE (ER) 50 MG TAB.ER.24H PO SCH (10:11)
[2022-12-29] MEDS: cloNIDine HCL 0.1 MG TAB PO SCH (10:11)
[2022-12-29 10:57] LABS: INR 1.1 (<1.2); Prothrombin Time 11.9 sec (10.0-12.5)
[2022-12-29 11:27] LABS: Glucose,Whole Blood 316 mg/dL (70-110)
[2022-12-29 11:54] VITALS: BP 121/58; PULSE 72; RESP 18; TEMP 97.4
--- NOTE | 2022-12-29 12:07 | P.PN ---
Subjective Progress Note Date: 12/29/22 Follow-up for acute kidney injury. Started on hemodialysis on 12/19/2022. Last dialysis was on Last Sunday. Objective - Vital Signs Vital signs: Vital Signs Temp 97.4 F L 12/29/22 11:50 Pulse 72 12/29/22 11:50 Resp 18 12/29/22 11:50 BP 121/58 12/29/22 11:50 Pulse Ox 99 12/29/22 11:50 FiO2 0 12/25/22 15:59 Intake & Output 12/28/22 12/29/22 12/29/22 18:59 06:59 18:59 Intake Total 240 190 Output Total 200 Balance -200 240 190 Weight 85.5 kg Intake: IV 10 Invasive Line 4 10 Oral 240 180 Output: Urine 200 Other: Voiding Method Urinal Urinal Urinal # Voids 1 - Exam No acute distress S1-S2 heard Decreased breath sounds No edema - Labs CBC & Chem 7: 12/29/22 08:46 12/29/22 08:46 Labs: Abnormal Lab Results - Last 24 Hours (Table) 12/28/22 12/28/22 12/29/22 Range/Units 16:25 20:08 02:02 WBC (3.8-10.6) k/uL RBC (4.30-5.90) m/uL Hgb (13.0-17.5) gm/dL Hct (39.0-53.0) % Sodium (137-145) mmol/L BUN (9-20) mg/dL Creatinine (0.66-1.25) mg/dL Glucose (74-99) mg/dL POC Glucose (mg/dL) 342 H 290 H 232 H (70-110) mg/dL 12/29/22 12/29/22 12/29/22 Range/Units 05:56 08:46 08:46 WBC 12.7 H (3.8-10.6) k/uL RBC 3.35 L (4.30-5.90) m/uL Hgb 9.4 L (13.0-17.5) gm/dL Hct 29.8 L (39.0-53.0) % Sodium 135 L (137-145) mmol/L BUN 77 H (9-20) mg/dL Creatinine 2.20 H (0.66-1.25) mg/dL Glucose 275 H (74-99) mg/dL POC Glucose (mg/dL) 233 H (70-110) mg/dL 12/29/22 Range/Units 11:25 WBC (3.8-10.6) k/uL RBC (4.30-5.90) m/uL Hgb (13.0-17.5) gm/dL Hct (39.0-53.0) % Sodium (137-145) mmol/L BUN (9-20) mg/dL Creatinine (0.66-1.25) mg/dL Glucose (74-99) mg/dL POC Glucose (mg/dL) 316 H (70-110) mg/dL Assessment and Plan Assessment: #1 dialysis dependent acute kidney injury secondary to hemodynamic ATN. -Baseline creatinine 1.29 MG per DL in December 2021. -Urine analysis bland #2 hyperkalemia, resolved on dialysis #3 diabetes mellitus #4 hypertension with chronic kidney disease #5 chronic kidney disease stage III a #6 volume overload Plan: #1 last hemodialysis on 12/22/2022. #2 with good urine output, Jordan discontinued. Renal function stable #3 avoid nephrotoxic agents and hypotensive episodes #4 stable from nephrology for discharge
[2022-12-29 12:20] VITALS: BMI 27.0
--- NOTE | 2022-12-29 12:27 | P.DS ---
Providers Date of admission: 12/18/22 20:32 Expected date of discharge: 12/29/22 Attending physician: Su Barrera MD Consults: 12/18/22 20:32 Consult Physician Routine Consulting Provider: Silvino Comer Consult Reason/Comments: icu Do you want consulting provider notified?: Yes Consult Physician Routine Consulting Provider: Wayne Dunlap Consult Reason/Comments: renalFail Do you want consulting provider notified?: Yes Consult Physician Urgent Consulting Provider: Van Horowitz Consult Reason/Comments: HD REMOVAL Do you want consulting provider notified?: Yes 12/19/22 03:07 Consult Physician Routine Consulting Provider: Ana Dickey Consult Reason/Comments: GI bleed Do you want consulting provider notified?: Yes, Notify in am Primary care physician: Candler Hospital Course: Discharge Diagnosis: Acute kidney injury, improved Anion gap metabolic acidosis, resolved Toxic metabolic encephalopathy. improved. Hyperphosphatemia Aneima, acute blood loss Ileus Supratherapeutic INR on admission,now subtherapeutic Diabetes mellitus type II Hyperkalemia, resolved Hypocalcemia, resolved Chronic conditions: COPD, CAD, HTN, HLD, paroxysmal AFib Hospital Course: Patient is a 77-year-old male with COPD, diabetes, hypertension, dyslipidemia, prior myocardial infarction who presented to the emergency department due to abdominal pain and altered mentation. On arrival to the emergency department his vital signs within normal limits. Laboratory analysis was remarkable for white blood cell count 11.2, hemoglobin 10.5, potassium 8.8, carbon dioxide 9, BUN 132, creatinine 9.45, lactic acid 6.4, and lipase 485. He was also noted to have EKG changes significant for hyperkalemia. CT abdomen and pelvis shows no acute abdominal process. Chest x-ray shows no acute process. Patient was subsequently admitted to the ICU and arrangements were made for emergent dialysis. Pulmonary, vascular surgery, and nephrology were consulted. Vascular surgery placed a temporary dialysis catheter in the right groin. Patient subsequently underwent emergent hemodialysis. He had a renal and bladder ultrasound completed which showed no hydronephrosis or nephrolithiasis. He was seen by gastroenterology who recommended reversal of his INR and continued monitoring without immediate plans for endoscopy. His hemoglobin remained stable. He continued to do well without recurrent bleeding. He did develop some abdominal pain and was found to have an ileus which was treated conservativtly a s small bowel follow through showed normal transit time without obstruction. His kidney function improved and his temporary HD cath was removed. He continued to progress and was determine stable to discharge to rehab. His coumadin was resumed on 12/28 with INR 1.1 on discharge. Follow-up: Dr. Dickey for outpatinet endoscopy in 2-4 weeks, Dr. Dunlap in 1-2 weeks, Dr. Stevens upon dicharge from rehab. INR daily until >2 for 2 days, repeat CBC and BMP in 3 days. Patient seen and examined at bedside. present. He is feeling well. All questions answered. No nausea, abdominal pain, diarrhea, or vomiting. Vital signs reviewed and stable. General: nontoxic, no distress, appears at stated age Cardiovascular: S1S2 reg, no murmur, positive posterior tibial pulse bilateral, Lungs: CTA bilateral, no rhonchi, no rales , no accessory muscle use Abdominal: soft, nontender to palpation, no guarding, no appreciable organomegaly Ext: no gross muscle atrophy, no edema b/l lower extremities, no contractures Neuro: CN II-XI grossly intact, no focal neuro deficits Psych: Alert, oriented, appropriate affect A total of 35 minutes of time were spent preparing this complex discharge summa ry. Patient was discharged on 12/29/22. This dictation was prepared using [employer] voice recognition software. Though every attempt is made to correct errors during dictation some may still exist. Patient Condition at Discharge: Stable Plan - Discharge Summary Discharge Rx Participant: Yes New Discharge Prescriptions: New hydrALAZINE HCL [Apresoline] 75 mg PO TID tab Warfarin [Coumadin] 3 mg PO DAILY #20 tab Calcium Acetate [PhosLo] 667 mg PO TID-W/MEALS tab Furosemide [Lasix] 40 mg PO DAILY #30 tablet Insulin Detemir (Levemir) [Levemir] 8 unit SQ HS each Simethicone Chew [Mylicon Chew] 40 mg PO QID 5 Days tab INSULIN ASPART (NovoLOG) [NovoLOG (formulary)] 0 unit SQ ACHS each Continue Atorvastatin [Lipitor] 80 mg PO HS busPIRone HCL 15 mg PO DAILY amLODIPine BESYLATE [Norvasc] 5 mg PO BID cloNIDine HCL [Catapres] 0.1 mg PO BID Loratadine 10 mg PO DAILY Donepezil [Aricept] 10 mg PO HS Metoprolol Succinate (ER) [Toprol XL] 50 mg PO DAILY Cholecalciferol (Vitamin D3) [Vitamin D3 (3000 Iu)] 75 mcg PO DAILY Discontinued metFORMIN HCL [Glucophage] 1,000 mg PO BID #0 hydrALAZINE HCL [Apresoline] 25 mg PO BID Warfarin Sodium [Jantoven] 2 mg PO MOWEFR Tart Murphy Extract 1 tab PO DAILY Ascorbic Acid [Vitamin C] 500 mg PO DAILY glipiZIDE XL [Glucotrol Xl] 10 mg PO BID Furosemide [Lasix] 20 mg PO DAILY Insulin Glargine,Hum.rec.anlog [Lantus Solostar Pen] 30 units SQ DAILY lisinopriL [Zestril] 20 mg PO BID Warfarin Sodium [Jantoven] 4 mg PO SUTUTHSA Zinc Gluconate [Zinc] 50 mg PO DAILY Discharge Medication List Atorvastatin [Lipitor] 80 mg PO HS 01/14/16 [History] Loratadine 10 mg PO DAILY 01/14/16 [History] amLODIPine BESYLATE [Norvasc] 5 mg PO BID 01/14/16 [History] busPIRone HCL 15 mg PO DAILY 01/14/16 [History] cloNIDine HCL [Catapres] 0.1 mg PO BID 01/14/16 [History] Cholecalciferol (Vitamin D3) [Vitamin D3 (3000 Iu)] 75 mcg PO DAILY 12/18/22 [History] Donepezil [Aricept] 10 mg PO HS 12/18/22 [History] Metoprolol Succinate (ER) [Toprol XL] 50 mg PO DAILY 12/18/22 [History] Calcium Acetate [PhosLo] 667 mg PO TID-W/MEALS tab 12/29/22 [Rx] Furosemide [Lasix] 40 mg PO DAILY #30 tablet 12/29/22 [Rx] INSULIN ASPART (NovoLOG) [NovoLOG (formulary)] 0 unit SQ ACHS each 12/29/22 [Rx] Insulin Detemir (Levemir) [Levemir] 8 unit SQ HS each 12/29/22 [Rx] Simethicone Chew [Mylicon Chew] 40 mg PO QID 5 Days tab 12/29/22 [Rx] Warfarin [Coumadin] 3 mg PO DAILY #20 tab 12/29/22 [Rx] hydrALAZINE HCL [Apresoline] 75 mg PO TID tab 12/29/22 [Rx] Follow up Appointment(s)/Referral(s): Ana Dickey MD [STAFF PHYSICIAN] - 1 Week Wayne Dunlap DO [STAFF PHYSICIAN] - 1 Week Austyn Stevens MD [Primary Care Provider] - 1-2 days (upon discharge from rehab. ) Activity/Diet/Wound Care/Special Instructions: Activity: As tolerated, fall precautions Diet: Heart Healthy 2 gram sodium, carb consistent Special Instructions: CBC and BMP in 3 days DX: anemia and ESDRAS INR daily until >2 for 2 days. Accuchecks before meals and at night. Discharge Disposition: TRANSFER TO SNF/ECF
--- NOTE | 2022-12-29 15:01 | P.PN ---
Subjective Progress Note Date: 12/29/22 Principal diagnosis: acute kidney injury/acute renal failure requiring emergent hemodialysis I am seeing this patient in new consultation today 12/19/2022 in the intensive care unit after the patient presented to the emergency room yesterday evening altered and very weak. He was found to be in acute renal failure and started on emergent hemodialysis. Patient is a 77-year-old white male with past medical history significant for diabetes mellitus, hyperlipidemia, hypertension, coronary artery disease with previous stents, paroxysmal atrial fibrillation anticoagulated on warfarin, COPD, and lower extremity cellulitis. Patient reportedly received treatment for bilateral lower extremity cellulitis on outpatient basis within the last month or so. Patient's unsure of the antibiotic, may have been on Bactrim. Patient is currently confused, and overall a poor historian. I did call the patient's who states that over the last 2 weeks he has not been eating or drinking much. He's been very weak and confused. On arrival to the emergency room yesterday evening the patient was found to be in acute renal failure. He was severely acidotic and hyperkalemic with a potassium of 9.45. There were EKG related changes with bradycardia and widening of the QRS complex. Patient was treated twice with a k cocktail including calcium gluconate, D50W, regular insulin, albuterol, and 2 A of sodium bicarb. Patient also received a dose Lokelma. A femoral hemodialysis catheter was placed by vascular surgery, and the patient is currently undergoing emergent hemodialysis. Patient was admitted to the intensive care unit. He is currently lying in bed, on room air, in no acute distress. Blood pressure normotensive, not on any vasopressors. 3 amps sodium bicarbonate in D5W is infusing at 100 ML's per hour. Heart rhythm currently normal sinus with rate of 80 bpm. Chest x-ray on arrival showed no acute cardiopulmonary process. CBC on arrival showed some mild leukocytosis with a WBC count of 11.2, hemoglobin 10.5, hematocrit 32.7, platelets 317. CMP on arrival showed a sodium 136, potassium 8.8, chloride 103, serum bicarbonate 9, anion gap 24, BUN 132, creatinine 9.45, glucose 247. Lactic acid was elevated at 6.4 and is down to 5.3. Urinalysis not concerning for UTI. Lipase mildly elevated at 485. LFTs not elevated. Patient is reporting some mild abdominal pain with palpation. No nausea or vomiting. Non-jaundiced. INR supratherapeutic at 4.6. reports that the patient had burgundy-colored loose stools at home. No further bloody stools or melena reported by nursing staff. CT of abdomen and pelvis without contrast did not show any acute abdominal process. No obstructive uropathy. Afebrile. Patient is currently hemodynamically stable, and monitored on the intensive care unit. , On today's evaluation of 12/20/2022, the patient is awake and alert and communicating. He is still feeling weak and fatigued. He is currently on oxygen at 2 L and his breathing is not labored at this point in time. As mentioned earlier, the patient presented to us with an acute kidney injury. He had significant electronic abnormalities including a significant hyperkalemia. He underwent hemodialysis yesterday and since yesterday the patient's urine operas improving and the patient is producing approximately 100 mL of urine output. His potassium level is down to 5.4. This is slightly elevated compared to yesterday where his potassium level was at 4.7. BUN is at 80 with a creatinine of 7.35. Otherwise, the 10.8 with a hemoglobin of 9.5 and a platelet count of 252. Ammonia level was less than 9. His lactic acid level has normalized. Blood sugar is currently at 78. The discomfort of 10.8 with a hemoglobin of 9.5. No hypotension. No hemodynamic instability. Nephrology is on the case. Possible hemodialysis today. He was provided some clear liquid diet. No focal neurological deficits. He remains afebrile. On 12/21/22, the patient is still confused. He is not consistent in his ability to provide history. He seems to be uncomfortable. Is complaining of some chronic back pain. His abdomen is also slightly distended. Nevertheless, the CAT scan of the abdomen and this was done at time of admission showed no evidence of any ileus or bowel obstruction and the bowel decompressed. He also had some chronic osteophytic changes in degenerative arthritis involving the thoracolumbar spine. The patient remains in renal failure although he has improved his urine output. Is producing approximately 100 mL of urine output and he has a Quezada catheter in place. His last hemodialysis session was done yesterday. His BUN is at 48 with a creatinine of 5.3. Potassium levels at 4.9. The visit 110.5 with a hemoglobin of 9.1 and a platelet count of 2:15. He remains on oxygen at 2 L with a pulse ox of 98%. He is afebrile. He is hemodynamically stable. He is on normal saline at rate of 75 mL an hour. His cardiac rhythm is sinus. His anticoagulants are still on hold. On 12/22/2022, the patient is being seen on the medical floor. The patient was transferred out of the intensive care unit yesterday. He is still having a failure. Is producing urine output. Nevertheless, the plan is to proceed with another session of hemodialysis today. His mental status is gradually improving. Slightly more alert compared to yesterday. His having episodes of confusion. He remains on Lasix 60 mg IV every 24 hours. No chest pain. He was complaining of back pain which has subsided. He was found to have some abdomin al distention and the patient had a repeat set of the abdomen that shows persistent dilated bowels and bowel loops. He has hypoactive bowel sounds. Nephrology is on the case. The patient is going to undergo hemodialysis with a total of 2 L of ultrafiltration. His labs showed evidence of 14.4 with a hemoglobin of 9.3, BUN is at 47 with a creatinine of 5.09 and a potassium level of 4.6 and sodium levels is 139. He is on 2 L of oxygen nasal cannula and his pulse ox is around 93% On today's evaluation of 12/23/2022, the patient is awake and communicating. His most recent hemodialysis was done yesterday. The patient is on Lasix 60 mg IV every 12 hours. Is producing adequate amount of urine output. He is more interactive. Confusion is gradually improving. No focal neurological deficits. The enzymes at 39 with a creatinine of 3.7. Sodium levels of 135 with a potassium level of 4.0. The white cell count at 16.9. Hemoglobin is at 9.4. He is afebrile. He is on 2 L of oxygen by nasal cannula with a pulse ox of 98%. He did have some ileus and x-ray of the abdomen from yesterday showed distended bowels, essentially the large bowel. No nausea. No vomiting. No emesis. He is passing gas. Today's evaluation of 12/24/2022, the patient is alert and communicating. Continues to have some mild abdominal distention. He is able to pass gas. No agitation. No restlessness. Remains on Lasix 80 mg IV every 24 hours. The patient is in negative fluid balance for now. Urine output is adequate and the patient has produced approximately 3.3 L of urine output since yesterday. The patient's BUN is at 50 with a creatinine of 3.5 and sodium levels of 136. The risk of 12.9 with a hemoglobin of 9.1. No other significant events otherwise for now. He was transferred out of the intensive care unit 48 hours ago. 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 Patient was reevaluated today on 12/25/2022,patient seems to be doing better, he does have poor appetite and no bowel movements, denies any nausea vomiting or abdominal pain.patient has been on hemodialysis since 12/19/2022, and his last hemodialysis was given on 12/22 so far the patient seems to be making good urine output, 24-hour urine output was 1.3 L, and creatinine has been steadily improving down to 3.29 today. Dialysis is presently on hold, patient may or may not require hemodialysis again. This is being followed and addressed by nephrology on the case.CBC is relatively normal hemoglobin is 9.2 basic metabolic profile is normal BUN is 58.continues to have abdominal distention, possible ileus, and that being addressed by his admitting physician and general surgery on the case, still concerned about possible bowel obstruction. Reevaluated today on 12/29/22, patient continues to do well, patient continues to have steady improvement of his renal functioning, not requiring any hemodialysis for a number of days, and his hemodialysis catheter has been removed. Patient is being considered for discharge to rehab facility, and I think it is appropriate. Patient is on room air, WBC count is 12.7 hemoglobin 9.4 BUN is 77 creatinine 2.2. O Objective - Vital Signs Vital signs: Vital Signs Temp 97.4 F L 12/29/22 11:50 Pulse 72 12/29/22 11:50 Resp 18 12/29/22 11:50 BP 121/58 12/29/22 11:50 Pulse Ox 99 12/29/22 11:50 FiO2 0 12/25/22 15:59 Intake & Output 12/28/22 12/29/22 12/29/22 18:59 06:59 18:59 Intake Total 240 308 Output Total 200 Balance -200 240 308 Weight 85.5 kg 85.5 kg Intake: IV 10 Invasive Line 4 10 Oral 240 298 Output: Urine 200 Other: Voiding Method Urinal Urinal Urinal # Voids 1 0 - Exam GENERAL EXAM: Alert and disoriented, 77-year-old male ,on room air. HEAD: Normocephalic and atraumatic HEENT: PERRLA, EOMI, nonicteric, no neck masses, no JVD. CHEST: No chest wall deformity. LUNGS: Equal air entry , minimal rhonchi on forced expiratory maneuver CVS: S1 and S2 normal with no audible murmur, regular rhythm. No extra heart sounds ABDOMEN: slightly distended.No hepatosplenomegaly, no bowel sounds. SKIN: No rashes. Bilateral legs are edematous and dry/flaky CENTRAL NERVOUS SYSTEM: alert and oriented 3 no gross focal deficit EXTREMITIES: There is1+ bilateral lower extremity edema. No clubbing, or cyanosis. Peripheral pulses are intact. - Labs CBC & Chem 7: 12/29/22 08:46 12/29/22 08:46 Labs: Abnormal Lab Results - Last 24 Hours (Table) 12/28/22 12/28/22 12/29/22 Range/Units 16:25 20:08 02:02 WBC (3.8-10.6) k/uL RBC (4.30-5.90) m/uL Hgb (13.0-17.5) gm/dL Hct (39.0-53.0) % Sodium (137-145) mmol/L BUN (9-20) mg/dL Creatinine (0.66-1.25) mg/dL Glucose (74-99) mg/dL POC Glucose (mg/dL) 342 H 290 H 232 H (70-110) mg/dL 12/29/22 12/29/22 12/29/22 Range/Units 05:56 08:46 08:46 WBC 12.7 H (3.8-10.6) k/uL RBC 3.35 L (4.30-5.90) m/uL Hgb 9.4 L (13.0-17.5) gm/dL Hct 29.8 L (39.0-53.0) % Sodium 135 L (137-145) mmol/L BUN 77 H (9-20) mg/dL Creatinine 2.20 H (0.66-1.25) mg/dL Glucose 275 H (74-99) mg/dL POC Glucose (mg/dL) 233 H (70-110) mg/dL 12/29/22 Range/Units 11:25 WBC (3.8-10.6) k/uL RBC (4.30-5.90) m/uL Hgb (13.0-17.5) gm/dL Hct (39.0-53.0) % Sodium (137-145) mmol/L BUN (9-20) mg/dL Creatinine (0.66-1.25) mg/dL Glucose (74-99) mg/dL POC Glucose (mg/dL) 316 H (70-110) mg/dL Assessment and Plan Assessment: impression: acute kidney injury, acute tubular necrosis with acute renal failure requiring emergent hemodialysis Acute metabolic encephalopathy resolved Severe metabolic anion gap metabolic acidosis and lactic acidosis resolved Possible ileus or bowel obstruction being addressed by surgery Type 2 diabetes Benign essential hypertension Dyslipidemia Paroxysmal atrial fibrillation normally on Coumadin Chronic obstructive pulmonary disease Obesity with BMI of 31.2 Chronic low back pain Severe dehydration upon admission Severe hyperkalemia on admission, resolved Recommendation: Agree with discharge planning. Follow-up on outpatient basis if necessary for his underlying COPD We will continue to follow Time with Patient: Less than 30
[2022-12-29] MEDS ORDERED: WARFARIN 5 MG TAB PO ONE (18:00)
== END 2022-12-29 13:58 | DRG 682 ==
LOC: EC 16:22 → 2SICU 20:32 → 3SCARD 12-21 18:17
PROVIDERS: ADMIT Internal Medicine; ATTEND Internal Medicine
PROC: 02HV33Z Insertion of Infusion Device into Superior Vena Cava, Percutaneous Approach (ICD-10-PCS; principal; 2022-12-18)
PROC: 5A1D70Z Performance of Urinary Filtration, Intermittent, Less than 6 Hours Per Day (ICD-10-PCS; 2022-12-18)
DX: N17.0 Acute kidney failure with tubular necrosis (principal); G92.8 Other toxic encephalopathy; D62 Acute posthemorrhagic anemia; E87.20 Acidosis, unspecified; K56.7 Ileus, unspecified; E11.22 Type 2 diabetes mellitus with diabetic chronic kidney disease; E66.9 Obesity, unspecified; Z68.31 Body mass index [BMI] 31.0-31.9, adult; E78.5 Hyperlipidemia, unspecified; E83.39 Other disorders of phosphorus metabolism; E83.51 Hypocalcemia; E86.0 Dehydration; E87.5 Hyperkalemia; E87.6 Hypokalemia; E87.70 Fluid overload, unspecified; F03.90 Unspecified dementia, unspecified severity, without behavioral disturbance, psychotic disturbance, mood disturbance, and anxiety; G89.29 Other chronic pain; I45.10 Unspecified right bundle-branch block; I48.0 Paroxysmal atrial fibrillation; I49.8 Other specified cardiac arrhythmias; J44.9 Chronic obstructive pulmonary disease, unspecified; N18.31 Chronic kidney disease, stage 3a; R31.0 Gross hematuria; R79.1 Abnormal coagulation profile; T38.3X5A Adverse effect of insulin and oral hypoglycemic [antidiabetic] drugs, initial encounter; I12.9 Hypertensive chronic kidney disease with stage 1 through stage 4 chronic kidney disease, or unspecified chronic kidney disease; I25.10 Atherosclerotic heart disease of native coronary artery without angina pectoris; I25.2 Old myocardial infarction; Z79.01 Long term (current) use of anticoagulants; Z79.4 Long term (current) use of insulin; Z79.84 Long term (current) use of oral hypoglycemic drugs; Z79.899 Other long term (current) drug therapy; Z95.5 Presence of coronary angioplasty implant and graft
CPT/HCPCS: 36415; 51702; 71045; 72020; 74018; 74022; 74176; 74250; 76770; 80048; 80053; 80074; 81003; 82140; 82150; 82728; 83036; 83540; 83550; 83605; 83690; 83735; 84100; 84165; 85025; 85027; 85610; 85730; 86038; 86225; 86255; 86334; 86706; 87040; 87340; 90935; 93005; 94640; 94644; 94760; 96361; 96365; 96375; 96376; 99291; 99292

== ENCOUNTER 2023-02-03 08:58 | Inpatient (IN) | payer MEDICARE ==
--- NOTE | 2023-02-03 09:40 | ED ---
General Adult HPI - General Source: patient, EMS, RN notes reviewed, old records reviewed Mode of arrival: EMS <Rei Sheridan - Last Filed: 02/03/23 14:42> <Jo Ann Warner - Last Filed: 02/04/23 01:15> - General Chief complaint: Recheck/Abnormal Lab/Rx Stated complaint: weakness Time Seen by Provider: 02/03/23 08:59 - History of Present Illness Initial comments: 78-year-old male presenting with concern for urinary tract infection. Patient has been incontinent of urine, he's had increased weakness and immobility at home. Apparently the patient had been recently discharged from [facility] according to paramedics. He also has bilateral lower extremity erythema. No measured fever. (Rei Sheridan) - Related Data Home Medications Medication Instructions Recorded Confirmed Atorvastatin [Lipitor] 80 mg PO HS 01/14/16 02/03/23 Loratadine 10 mg PO DAILY 01/14/16 02/03/23 amLODIPine BESYLATE [Norvasc] 5 mg PO BID 01/14/16 02/03/23 busPIRone HCL 15 mg PO DAILY 01/14/16 02/03/23 cloNIDine HCL [Catapres] 0.1 mg PO BID 01/14/16 02/03/23 Cholecalciferol (Vitamin D3) 75 mcg PO DAILY 12/18/22 02/03/23 [Vitamin D3 (3000 Iu)] Donepezil [Aricept] 10 mg PO HS 12/18/22 02/03/23 Acetaminophen Tab [Tylenol] 650 mg PO Q4H PRN 02/03/23 02/03/23 INSULIN ASPART (NovoLOG) [NovoLOG See Protocol SQ ACHS 02/03/23 02/03/23 (formulary)] Insulin Detemir (Levemir) [Levemir] 15 unit SQ HS 02/03/23 02/03/23 Metoprolol Tartrate [Lopressor] 50 mg PO DAILY 02/03/23 02/03/23 Warfarin [Coumadin] 3 mg PO DAILY@1700 02/03/23 02/03/23 hydrALAZINE HCL [Apresoline] 75 mg PO DAILY 02/03/23 02/03/23 Previous Rx's Medication Instructions Recorded Calcium Acetate [PhosLo] 667 mg PO TID-W/MEALS tab 12/29/22 Furosemide [Lasix] 40 mg PO DAILY #30 tablet 12/29/22 Pantoprazole [Protonix] 40 mg PO DAILY #30 tab 12/29/22 Simethicone Chew [Mylicon Chew] 40 mg PO QID 5 Days tab 12/29/22 Allergies Allergy/AdvReac Type Severity Reaction Status Date / Time No Known Allergies Allergy Verified 02/03/23 15:52 Review of Systems ROS Other: All systems not noted in ROS Statement are negative. <Rei Sheridan - Last Filed: 02/03/23 14:42> ROS Other: All systems not noted in ROS Statement are negative. <Jo Ann Warner - Last Filed: 02/04/23 01:15> ROS Statement: Those systems with pertinent positive or pertinent negative responses have been documented in the HPI. Past Medical History Past Medical History: COPD, Diabetes Mellitus, Hyperlipidemia, Hypertension, Myocardial Infarction ([place]) Additional Past Medical History / Comment(s): Recent sore R great toe-healed, gout. Last Myocardial Infarction Date:: 1991 History of Any Multi-Drug Resistant Organisms: None Reported Past Surgical History: Heart Catheterization, Heart Catheterization With Stent Additional Past Surgical History / Comment(s): 01/18/16 cardiac stents to RCA x2. Other surgical hx: balloon angiioplasty 1991, nathan cataracts Past Anesthesia/Blood Transfusion Reactions: No Reported Reaction Date of Last Stent Placement:: 01/19/16 Past Psychological History: No Psychological Hx Reported Smoking Status: Never smoker Past Alcohol Use History: None Reported Past Drug Use History: None Reported - Past Family History Mother Family Medical History: No Reported History Additional Family Medical History / Comment(s): Mother is healthy and is 89yrs old. Father Family Medical History: Cancer Additional Family Medical History / Comment(s): "blood cancer". at the age of 73 yrs. <Rei Sheridan - Last Filed: 02/03/23 14:42> General Exam General appearance: alert, in no apparent distress Head exam: Present: atraumatic, normocephalic Eye exam: Present: normal appearance, PERRL ENT exam: Present: normal exam Neck exam: Present: normal inspection. Absent: tenderness Respiratory exam: Present: normal lung sounds bilaterally. Absent: respiratory distress, wheezes Cardiovascular Exam: Present: normal rhythm, tachycardia GI/Abdominal exam: Present: soft, distended. Absent: tenderness, guarding, rebound Extremities exam: Present: pedal edema (Erythema bilateral) Neurological exam: Present: alert, oriented X3. Absent: motor sensory deficit Psychiatric exam: Present: normal affect, normal mood <Rei Sheridan - Last Filed: 02/03/23 14:42> Course <Rei Sheridan - Last Filed: 02/03/23 14:42> Vital Signs 02/03/23 02/03/23 02/03/23 09:08 14:43 17:10 Temperature 97.6 F 98.6 F Pulse Rate 112 H 118 H 105 H Respiratory 22 17 22 Rate Blood Pressure 122/72 157/75 159/74 O2 Sat by Pulse 93 L 95 94 L Oximetry 02/03/23 18:45 Temperature Pulse Rate 84 Respiratory 22 Rate Blood Pressure 156/73 O2 Sat by Pulse 95 Oximetry - Reevaluation(s) Reevaluation #1: 02/03/23 1500 Care signed out to Dr. Warner at shift change awaiting viral panel and reevaluation (Rei Sheridan) Medical Decision Making - Lab Data Result diagrams: 02/03/23 09:40 02/03/23 09:40 <Rei Sheridan - Last Filed: 02/03/23 14:42> - Lab Data Result diagrams: 02/03/23 09:40 02/03/23 09:40 <Jo Ann Warner - Last Filed: 02/04/23 01:15> - Medical Decision Making Was pt. sent in by a medical professional or institution (, PA, INTERNAL AUDIT SENIOR MANAGER, urgent care, hospital, or [facility]...) When possible be specific @ -[No] Did you speak to anyone other than the patient for history (EMS, parent, family, police, friend...)? What history was obtained from this source @ -[No] Did you review nursing and triage notes (agree or disagree)? Why? @ -[I reviewed and agree with nursing and triage notes] Were old charts reviewed (outside hosp., previous admission, EMS record, old EKG, old radiological studies, urgent care reports/EKG's, [facility] records)? Report findings @ -[No old charts were reviewed] Differential Diagnosis (chest pain, altered mental status, abdominal pain women, abdominal pain men, vaginal bleeding, weakness, fever, dyspnea, syncope, headache, dizziness, GI bleed, back pain, seizure, CVA, palpatations, mental health, musculoskeletal)? @ -[Differential Weakness: Hypoglycemia, shock, sepsis, hyponatremia, anemia, infection, MA, ETOH, adverse medicine reaction, overdose, stroke, this is not meant to be an all-inclusive list. EKG interpreted by me (3pts min.). @ Sinus tachycardia rate of 108, AR interval 153, QRS duration 77, QTC 395, no ST segment elevation.] X-rays interpreted by me (1pt min.). @ -[None done] CT interpreted by me (1pt min.). @ -[None done] U/S interpreted by me (1pt. min.). @ -[None done] What testing was considered but not performed or refused? (CT, X-rays, U/S, labs)? Why? @ -[None] What meds were considered but not given or refused? Why? @ -[None] Did you discuss the management of the patient with other professionals (professionals i.e. , PA, INTERNAL AUDIT SENIOR MANAGER, lab, RT, psych nurse, social service director, escort patients, teacher, aadc plans staff officer, welfare case worker)? Give summary @ -[No] Was smoking cessation discussed for >3mins.? @ -[No] Was critical care preformed (if so, how long)? @ -[No] Were there social determinants of health that impacted care today? How? (Homelessness, low income, unemployed, alcoholism, drug addiction, transportation, low edu. Level, literacy, decrease access to med. care, residential, rehab)? @ -[No] Was there de-escalation of care discussed even if they declined (Discuss DNR or withdrawal of care, Hospice)? DNR status @ -[No] What co-morbidities impacted this encounter? (DM, HTN, Smoking, COPD, CAD, Cancer, CVA, ARF, Chemo, Hep., AIDS, mental health diagnosis, sleep apnea, morbid obesity)? @ -[None] Was patient admitted / discharged? Hospital course, mention meds given and route, prescriptions, significant lab abnormalities, going to OR and other pertinent info. @ -[78-year-old male with immobility and urinary incontinence. Patient's concerned that he may have urinary tract infection. Urinalysis is unremarkable. Mild leukocytosis, chronic anemia. Patient did come in contact with coronavirus, these results are pending.] (Rei Sheridan) We do get the patient up however it takes 2 nurses to assist him in getting his brief changed and cleaned up. Patient reports that his symptoms of inability to ambulate are due to his left heel wound which has become more painful the past couple of days. I did order an x-ray. PT and INR ordered. I did speak with the patient and family. Understandably it is difficult to send the patient home when he is a 2 person lift assist. Spoke with Dr. kearney was agreeable to admitting the patient (Jo Ann Warner) - Lab Data Lab Results 02/03/23 02/03/23 02/03/23 Range/Units 09:40 09:40 09:40 WBC 10.7 H (3.8-10.6) k/uL RBC 3.39 L (4.30-5.90) m/uL Hgb 9.6 L (13.0-17.5) gm/dL Hct 29.2 L (39.0-53.0) % MCV 86.3 (80.0-100.0) fL MCH 28.5 (25.0-35.0) pg MCHC 33.0 (31.0-37.0) g/dL RDW 15.4 (11.5-15.5) % Plt Count 398 (150-450) k/uL MPV 7.4 Neutrophils % 79 % Lymphocytes % 12 % Monocytes % 6 % Eosinophils % 1 % Basophils % 0 % Neutrophils # 8.4 H (1.3-7.7) k/uL Lymphocytes # 1.2 (1.0-4.8) k/uL Monocytes # 0.7 (0-1.0) k/uL Eosinophils # 0.1 (0-0.7) k/uL Basophils # 0.0 (0-0.2) k/uL Sodium 136 L (137-145) mmol/L Potassium 4.0 (3.5-5.1) mmol/L Chloride 101 (98-107) mmol/L Carbon Dioxide 23 (22-30) mmol/L Anion Gap 12 mmol/L BUN 17 (9-20) mg/dL Creatinine 1.15 (0.66-1.25) mg/dL Est GFR (CKD-EPI)AfAm 71 (>60 ml/min/1.73 sqM) Est GFR (CKD-EPI)NonAf 61 (>60 ml/min/1.73 sqM) Glucose 187 H (74-99) mg/dL Lactic Ac Sepsis Rflx Plasma Lactic Acid Kenny (0.7-2.0) mmol/L Calcium 8.7 (8.4-10.2) mg/dL Magnesium 1.4 L (1.6-2.3) mg/dL Total Bilirubin 0.8 (0.2-1.3) mg/dL AST 19 (17-59) U/L ALT 15 (4-49) U/L Alkaline Phosphatase 60 (38-126) U/L Total Protein 6.1 L (6.3-8.2) g/dL Albumin 3.0 L (3.5-5.0) g/dL Urine Color Colorless Urine Appearance Clear (Clear) Urine pH 7.5 (5.0-8.0) Ur Specific [place] 1.010 (1.001-1.035) Urine Protein Trace H (Negative) Urine Glucose (UA) Negative (Negative) Urine Ketones Negative (Negative) Urine Blood Negative (Negative) Urine Nitrite Negative (Negative) Urine Bilirubin Negative (Negative) Urine Urobilinogen <2.0 (<2.0) mg/dL Ur Leukocyte Esterase Negative (Negative) Influenza Type A (PCR) (Not Detectd) Influenza Type B (PCR) (Not Detectd) RSV (PCR) (Not Detectd) SARS-CoV-2 (PCR) (Not Detectd) 02/03/23 02/03/23 02/03/23 Range/Units 09:40 10:31 12:55 WBC (3.8-10.6) k/uL RBC (4.30-5.90) m/uL Hgb (13.0-17.5) gm/dL Hct (39.0-53.0) % MCV (80.0-100.0) fL MCH (25.0-35.0) pg MCHC (31.0-37.0) g/dL RDW (11.5-15.5) % Plt Count (150-450) k/uL MPV Neutrophils % % Lymphocytes % % Monocytes % % Eosinophils % % Basophils % % Neutrophils # (1.3-7.7) k/uL Lymphocytes # (1.0-4.8) k/uL Monocytes # (0-1.0) k/uL Eosinophils # (0-0.7) k/uL Basophils # (0-0.2) k/uL Sodium (137-145) mmol/L Potassium (3.5-5.1) mmol/L Chloride (98-107) mmol/L Carbon Dioxide (22-30) mmol/L Anion Gap mmol/L BUN (9-20) mg/dL Creatinine (0.66-1.25) mg/dL Est GFR (CKD-EPI)AfAm (>60 ml/min/1.73 sqM) Est GFR (CKD-EPI)NonAf (>60 ml/min/1.73 sqM) Glucose (74-99) mg/dL Lactic Ac Sepsis Rflx Y Plasma Lactic Acid Kenny 2.1 H* 1.4 (0.7-2.0) mmol/L Calcium (8.4-10.2) mg/dL Magnesium (1.6-2.3) mg/dL Total Bilirubin (0.2-1.3) mg/dL AST (17-59) U/L ALT (4-49) U/L Alkaline Phosphatase (38-126) U/L Total Protein (6.3-8.2) g/dL Albumin (3.5-5.0) g/dL Urine Color Urine Appearance (Clear) Urine pH (5.0-8.0) Ur Specific [place] (1.001-1.035) Urine Protein (Negative) Urine Glucose (UA) (Negative) Urine Ketones (Negative) Urine Blood (Negative) Urine Nitrite (Negative) Urine Bilirubin (Negative) Urine Urobilinogen (<2.0) mg/dL Ur Leukocyte Esterase (Negative) Influenza Type A (PCR) (Not Detectd) Influenza Type B (PCR) (Not Detectd) RSV (PCR) (Not Detectd) SARS-CoV-2 (PCR) (Not Detectd) 02/03/23 Range/Units 14:42 WBC (3.8-10.6) k/uL RBC (4.30-5.90) m/uL Hgb (13.0-17.5) gm/dL Hct (39.0-53.0) % MCV (80.0-100.0) fL MCH (25.0-35.0) pg MCHC (31.0-37.0) g/dL RDW (11.5-15.5) % Plt Count (150-450) k/uL MPV Neutrophils % % Lymphocytes % % Monocytes % % Eosinophils % % Basophils % % Neutrophils # (1.3-7.7) k/uL Lymphocytes # (1.0-4.8) k/uL Monocytes # (0-1.0) k/uL Eosinophils # (0-0.7) k/uL Basophils # (0-0.2) k/uL Sodium (137-145) mmol/L Potassium (3.5-5.1) mmol/L Chloride (98-107) mmol/L Carbon Dioxide (22-30) mmol/L Anion Gap mmol/L BUN (9-20) mg/dL Creatinine (0.66-1.25) mg/dL Est GFR (CKD-EPI)AfAm (>60 ml/min/1.73 sqM) Est GFR (CKD-EPI)NonAf (>60 ml/min/1.73 sqM) Glucose (74-99) mg/dL Lactic Ac Sepsis Rflx Plasma Lactic Acid Kenny (0.7-2.0) mmol/L Calcium (8.4-10.2) mg/dL Magnesium (1.6-2.3) mg/dL Total Bilirubin (0.2-1.3) mg/dL AST (17-59) U/L ALT (4-49) U/L Alkaline Phosphatase (38-126) U/L Total Protein (6.3-8.2) g/dL Albumin (3.5-5.0) g/dL Urine Color Urine Appearance (Clear) Urine pH (5.0-8.0) Ur Specific [place] (1.001-1.035) Urine Protein (Negative) Urine Glucose (UA) (Negative) Urine Ketones (Negative) Urine Blood (Negative) Urine Nitrite (Negative) Urine Bilirubin (Negative) Urine Urobilinogen (<2.0) mg/dL Ur Leukocyte Esterase (Negative) Influenza Type A (PCR) Not Detected (Not Detectd) Influenza Type B (PCR) Not Detected (Not Detectd) RSV (PCR) Not Detected (Not Detectd) SARS-CoV-2 (PCR) Not Detected (Not Detectd) Disposition <Rei Sheridan - Last Filed: 02/03/23 14:42> Is patient prescribed a controlled substance at d/c from ED?: No Time of Disposition: 16:00 Decision to Admit Reason: Admit from EC Decision Date: 02/03/23 Decision Time: 16:00 <Jo Ann Warner - Last Filed: 02/04/23 01:15> Clinical Impression: Weakness, Ulcer of left foot Disposition: ADMITTED IP TO THIS [facility] Condition: Stable
[2023-02-03 09:58] LABS: Basophils % (A) 0 %; Eosinophils # (A) 0.1 k/uL (0-0.7); Eosinophils % (A) 1 %; HCT 29.2 % (39.0-53.0); HGB 9.6 gm/dL (13.0-17.5); Lymphocytes # (A) 1.2 k/uL (1.0-4.8); Lymphocytes % (A) 12 %; MCH 28.5 pg (25.0-35.0); MCV 86.3 fL (80.0-100.0); Mean Platelet Volume 7.4; Monocytes # (A) 0.7 k/uL (0-1.0); Monocytes % (A) 6 %; Neutrophils # (A) 8.4 k/uL (1.3-7.7); Neutrophils % (A) 79 %; Platelet Count 398 k/uL (150-450); RBC 3.39 m/uL (4.30-5.90); RDW 15.4 % (11.5-15.5); WBC 10.7 k/uL (3.8-10.6)
[2023-02-03 10:28] LABS: ALT 15 U/L (4-49); AST 19 U/L (17-59); African American GFR (CKD) 71 (>60 ml/min/1.73 sqM); Alkaline Phosphatase 60 U/L (38-126); Anion Gap 12 mmol/L; Blood Urea Nitrogen 17 mg/dL (9-20); Calcium 8.7 mg/dL (8.4-10.2); Carbon Dioxide 23 mmol/L (22-30); Chloride 101 mmol/L (98-107); Glucose 187 mg/dL (74-99); Magnesium 1.4 mg/dL (1.6-2.3); Non-African American GFR(CKD) 61 (>60 ml/min/1.73 sqM); Sodium 136 mmol/L (137-145); Total Bilirubin 0.8 mg/dL (0.2-1.3); Total Protein 6.1 g/dL (6.3-8.2)
[2023-02-03 10:40] LABS: Appearance,Urine Clear (Clear); Bilirubin,Urine Negative (Negative); Blood,Urine Negative (Negative); Color,Urine Colorless; Glucose,Urine (UA) Negative (Negative); Ketones,Urine Negative (Negative); Leukocyte Esterase,Urine Negative (Negative); Nitrite,Urine Negative (Negative); PH, Urine 7.5 (5.0-8.0); Protein,Urine Trace (Negative); Urobilinogen,Urine <2.0 mg/dL (<2.0)
[2023-02-03] MEDS ORDERED: NALOXONE 0.4 MG/ML 1 ML VIAL IV PRN (16:00)
[2023-02-03] MEDS ORDERED: AMPICILLIN-SULBACTAM 3 GM in SODIUM CHLORIDE 0.9% 100 ML IVPB STA (16:10)
[2023-02-03] MEDS ORDERED: VANCOMYCIN IV PER PHARMACY 1 EACH MISC MISCELLANE PRN (16:11)
--- NOTE | 2023-02-03 16:58 | P.HPIM ---
History of Present Illness H&P Date: 02/03/23 History of Presenting Illness: Patient is a very pleasant 78-year-old male with a past medical history of CAD with stent, atrial fibrillation on anticoagulation with Coumadin, hypertension, hyperlipidemia, COPD, insulin-dependent diabetes mellitus, gout, and dementia. He presented to the emergency department with a chief complaint of increased confusion and inability to ambulate. Patient recently admitted to the hospital from 12/18/22 through 12/29/22 and underwent treatment for toxic metabolic encephalopathy and acute kidney injury requiring emergent dialysis. Patient was discharged to [facility] where he underwent rehab and then discharged 2 weeks ago. Patient's and daughter at bedside report that Mr. Plummer has been doing well up until the last 3 days. Patient's states that over the last 3 nights her has been screaming throughout the night and yelling with a noted change in his mentation and mood as he seemed much more angry and confused. She states otherwise throughout the day he had been still at his baseline functioning level, walking with the walker up and down the hallway and into the restroom. She states this continued until this morning after getting him into his recliner chair he was unable to stand or get back up. She reports her remained unable to get up and seemed much more confused than his baseline so she was worried he might have another urinary tract infection or something else wrong so she called EMS for transport back to the hospital. She denies her having any recent fevers, chills, diaphoresis episodes of nausea or vomiting or noted diarrhea or constipation. Patient c urrently is alert to self only, but denies having any pain or complaints. Upon assessment patient did yell out in pain upon evaluation of left foot and heel. Patient underwent full evaluation in the emergency department. Vital signs upon reviewed. Blood pressure 122/72 heart rate 112 temp 97.6F and SpO2 of 93% on room air. Labs completed and reviewed. CBC showing mild leukocytosis with WBC count of 10.7 and Normocytic anemia with hemoglobin of 9.6 which is stable at baseline level. BMP unremarkable. Glucose slightly elevated at 187. Initial lactate was elevated at 2.1. Magnesium was low at 1.4. Liver profile showing no significant abnormalities with the exception of hypoalbuminemia with albumin of 3.0. Urinalysis was negative for infection. Influenza A, influenza B, RNC, and Covid PCR were all negative. EKG completed showing sinus tachycardia at 108 bpm. X-ray left foot completed showing no definitive evidence for osseous erosion revealing soft tissue edema with calcaneal plantar spurring and calcaneal Achilles enthesophyte are present. Patient was started on IV antib iotics of vancomycin and Unasyn and being admitted under our services with consultation to infectious disease and wound care. Review of systems: Pertinent positives and negatives as discussed in HPI, a complete review of systems was performed and all other systems are negative. Physical exam: Vital signs reviewed and stable. General: Nontoxic, no distress and appears stated age. Derm: Skin warm and dry, normal coloration for ethnicity. Head: Atraumatic, normocephalic and symmetric. Eyes: EOMs intact, no lid lag, and anicteric sclera Mouth: no lip lesions, mucus membranes moist Cardiovascular: regular rate and rhythm with normal S1S2, no murmur, positive posterior tibial pulses bilaterally, and cap refill < 2 seconds. Lungs: Respirations even, regular, and unlabored on room air. Lungs CTA bilaterally, no rhonchi, no rales, no wheezing, and no accessory muscle usage. Abdominal: soft, nontender to palpation, no guarding, no appreciable organomegaly Ext: No gross muscle atrophy, no edema, no contractures. Movement and sensation intact. Patient with bilateral lower extremity redness with large open ulcer/wound to left heel seeping clear serosanguineous drainage. Neuro: Speech clear, face symmetrical. GCS 14 Psych: Alert and oriented to Person only. Patient yells out when spoken to, following limited commands. Assessment and Plan of Care: Diabetic ulcer to left heel, with concerns of surrounding cellulitis and infection Lactic acidosis Sinus tachycardia Leukocytosis Acute metabolic encephalopathy, unclear cause possibly underlying infectious process secondary to above versus worsening baseline dementia Weakness and inability to ambulate likely secondary to above Hypomagnesemia Consult placed to infectious disease for diabetic wound care/management of inf ected diabetic wound Order placed for magnesium sulfate 3 g IVPB 1 dose, we will repeat morning ma gnesium levels to monitor for resolution in place additional orders as indicated based upon these findings. Continuation of IV antibiotics with Unasyn 3 g every 8 hours and vancomycin pending further recommendations from infectious disease. Blood cultures and wound cultures to be obtained Wound care and order placed for air boot/heel protector boot for left foot We will also obtain a CT brain to rule out acute intercranial process Fall precautions to remain in place. Continue BuSpar 15 mg daily and Aricept 10 mg nightly. Consult PT/OT for evaluation for rehab Consult case management for assistance with placement in [facility] facility. Insulin-dependent diabetes mellitus with hyperglycemia -Patient placed on glycemic protocol with NovoLog sliding scale and to continue with Levemir 15 units nightly. CAD with stent Hypertension Hyperlipidemia Paroxysmal atrial fibrillation COPD not in exacerbation -Continue anticoagulation with Coumadin, pharmacy to dose for goal INR of 2-3 (currently therapeutic at 2.1 ) atorvastatin 80 mg nightly, clonidine 0.1 mg twice daily, hydralazine 75 mg daily, and metoprolol 50 mg daily. Data and imaging reviewed: As detailed in above H&P CODE STATUS: Discussed CODE STATUS with patient's and daughter at bedside patient is a DO NOT RESUSCITATE/DO NOT INTUBATE DVT prophylaxis: Coumadin Anticipated discharge date: Clinical course to determine Anticipated discharge place: alf facility for placement Patient was seen independently by Nurse Practitioner. This document was prepared using [employer] dictation software. Please allow for errors in hog handler while rare they do occur. Terry Dorman NP rendered care for this patient independently, reviewed the findings and plan as documented in the note above. I did not physically speak with or examine the patient on this date. Past Medical History Past Medical History: COPD, Diabetes Mellitus, Hyperlipidemia, Hypertension, Myocardial Infarction ([place]) Additional Past Medical History / Comment(s): Recent sore R great toe-healed, gout. Last Myocardial Infarction Date:: 1991 History of Any Multi-Drug Resistant Organisms: None Reported Past Surgical History: Heart Catheterization, Heart Catheterization With Stent Additional Past Surgical History / Comment(s): 01/18/16 cardiac stents to RCA x2. Other surgical hx: balloon angiioplasty 1991, nathan cataracts Past Anesthesia/Blood Transfusion Reactions: No Reported Reaction Date of Last Stent Placement:: 01/19/16 Past Psychological History: No Psychological Hx Reported Smoking Status: Never smoker Past Alcohol Use History: None Reported Past Drug Use History: None Reported - Past Family History Mother Family Medical History: No Reported History Additional Family Medical History / Comment(s): Mother is healthy and is 89yrs old. Father Family Medical History: Cancer Additional Family Medical History / Comment(s): "blood cancer". at the age of 73 yrs. Medications and Allergies Home Medications Medication Instructions Recorded Confirmed Type Atorvastatin [Lipitor] 80 mg PO HS 01/14/16 02/03/23 History Loratadine 10 mg PO DAILY 01/14/16 02/03/23 History amLODIPine BESYLATE [Norvasc] 5 mg PO BID 01/14/16 02/03/23 History busPIRone HCL 15 mg PO DAILY 01/14/16 02/03/23 History cloNIDine HCL [Catapres] 0.1 mg PO BID 01/14/16 02/03/23 History Cholecalciferol (Vitamin D3) 75 mcg PO DAILY 12/18/22 02/03/23 History [Vitamin D3 (3000 Iu)] Donepezil [Aricept] 10 mg PO HS 12/18/22 02/03/23 History Calcium Acetate [PhosLo] 667 mg PO TID-W/MEALS tab 12/29/22 02/03/23 Rx Furosemide [Lasix] 40 mg PO DAILY #30 tablet 12/29/22 02/03/23 Rx Pantoprazole [Protonix] 40 mg PO DAILY #30 tab 12/29/22 02/03/23 Rx Simethicone Chew [Mylicon Chew] 40 mg PO QID 5 Days tab 12/29/22 02/03/23 Rx Acetaminophen Tab [Tylenol] 650 mg PO Q4H PRN 02/03/23 02/03/23 History INSULIN ASPART (NovoLOG) [NovoLOG See Protocol SQ ACHS 02/03/23 02/03/23 History (formulary)] Insulin Detemir (Levemir) [Levemir] 15 unit SQ HS 02/03/23 02/03/23 History Metoprolol Tartrate [Lopressor] 50 mg PO DAILY 02/03/23 02/03/23 History Warfarin [Coumadin] 3 mg PO DAILY@1700 02/03/23 02/03/23 History hydrALAZINE HCL [Apresoline] 75 mg PO DAILY 02/03/23 02/03/23 History Allergies Allergy/AdvReac Type Severity Reaction Status Date / Time No Known Allergies Allergy Verified 02/03/23 15:52 Physical Exam Osteopathic Statement: *. No significant issues noted on an osteopathic structural exam other than those noted in the History and Physical/Consult. Vitals: Vital Signs Temp Pulse Resp BP Pulse Ox 02/03/23 14:43 118 H 17 157/75 95 02/03/23 09:08 97.6 F 112 H 22 122/72 93 L Intake and Output 02/03/23 02/03/23 02/03/23 06:59 14:59 22:59 Other: Voiding Method Diaper Incontinent Weight 88.451 kg Results CBC & Chem 7: 02/03/23 09:40 02/03/23 09:40 Labs: Abnormal Lab Results - Last 24 Hours (Table) 02/03/23 02/03/23 02/03/23 Range/Units 09:40 09:40 09:40 WBC 10.7 H (3.8-10.6) k/uL RBC 3.39 L (4.30-5.90) m/uL Hgb 9.6 L (13.0-17.5) gm/dL Hct 29.2 L (39.0-53.0) % Neutrophils # 8.4 H (1.3-7.7) k/uL Sodium 136 L (137-145) mmol/L Glucose 187 H (74-99) mg/dL Plasma Lactic Acid Kenny (0.7-2.0) mmol/L Magnesium 1.4 L (1.6-2.3) mg/dL Total Protein 6.1 L (6.3-8.2) g/dL Albumin 3.0 L (3.5-5.0) g/dL Urine Protein Trace H (Negative) 02/03/23 Range/Units 09:40 WBC (3.8-10.6) k/uL RBC (4.30-5.90) m/uL Hgb (13.0-17.5) gm/dL Hct (39.0-53.0) % Neutrophils # (1.3-7.7) k/uL Sodium (137-145) mmol/L Glucose (74-99) mg/dL Plasma Lactic Acid Kenny 2.1 H* (0.7-2.0) mmol/L Magnesium (1.6-2.3) mg/dL Total Protein (6.3-8.2) g/dL Albumin (3.5-5.0) g/dL Urine Protein (Negative)
[2023-02-03] MEDS ORDERED: DEXTROSE 50% SYRINGE 50 ML IVP PRN ×2 (17:06)
--- NOTE | 2023-02-03 17:08 | XR ---
EXAMINATION TYPE: XR foot limited LT DATE OF EXAM: 02/03/2023 4:35 PM CLINICAL INDICATION:Male, 78 years old with history of heel ulcer; PHH COMPARISON: None TECHNIQUE: XR foot limited LT examined in the AP, oblique, and lateral projections. FINDINGS: Soft tissue edema without evidence for osseous erosion. Calcaneal plantar spurring and calcaneal Achi lles enthesophyte are present. No evidence of fracture. Multifocal degeneration with osteophyte forma tion and joint space tearing. IMPRESSION: No definitive evidence for osseous erosion to remains concern consider MRI or three-phase bone scan.
[2023-02-03] MEDS ORDERED: VANCOMYCIN 1,750 MG in SODIUM CHLORIDE 0.9% 500 ML 500 ML IVPB ONE (17:30)
[2023-02-03 18:03] LABS: Glucose,Whole Blood 212 mg/dL (70-110)
[2023-02-03 18:08] LABS: INR 2.1 (<1.2); Prothrombin Time 21.2 sec (10.0-12.5)
--- NOTE | 2023-02-03 18:08 | CT ---
EXAMINATION TYPE: CT brain wo con CT DLP: 1226.4 mGycm, Automated exposure control for dose reduction was used. DATE OF EXAM: 02/03/2023 5:58 PM COMPARISON: 11/24/2020.. CLINICAL INDICATION:Male, 78 years old with history of increased confusion, ams TECHNIQUE: Brain: Axial CT images of the brain were obtained with coronal and sagittal reformats created and rev iewed. Contrast used: None. Oral contrast used: None. FINDINGS: Brain: Extra-axial spaces: No abnormal extra-axial fluid collections. Ventricular system: Dilatation in proportion to cerebral atrophy. Cerebral parenchyma: Cerebral atrophy. No acute intraparenchymal hemorrhage or mass effect. The hall -white junction is well differentiated. Scattered hypoattenuating areas are seen within the white mat ter. Cerebellum: Unremarkable. Mass effect: No evidence of midline shift. Intracranial vasculature: Atherosclerotic calcifications of the intracranial vessels. Soft tissues: Normal. Calvarium/osseous structures: No depressed skull fracture. Paranasal sinuses and mastoid air cells: Mild scattered paranasal sinus disease. Visualized orbits: Bilateral aphakia IMPRESSION: 1. No acute intracranial process. 2. Nonspecific white matter changes, likely secondary to chronic small vessel ischemic disease.
[2023-02-03] MEDS: INSULIN ASPART (NovoLOG) 100 UNIT/ML VIAL SQ SCH ×2 (18:21→21:32)
[2023-02-03] MEDS: METOPROLOL TARTRATE 50 MG TAB PO SCH (18:23)
[2023-02-03] MEDS: CALCIUM ACETATE 667 MG TAB PO SCH (18:23)
[2023-02-03] MEDS: MAGNESIUM SULFATE-D5W PMX 1 GM in DEXTROSE/WATER 1 100ML.BAG IVPB SCH ×3 (18:45→22:50)
[2023-02-03] MEDS: SIMETHICONE 80 MG CHEWABLE PO SCH ×2 (18:48→21:48)
[2023-02-03 21:32] LABS: Glucose,Whole Blood 134 mg/dL (70-110)
[2023-02-03] MEDS: INSULIN DETEMIR (LEVEMIR) 100 UNIT/ML SYR SQ SCH (21:48)
[2023-02-03] MEDS: DONEPEZIL 10 MG TAB PO SCH (21:48)
[2023-02-03] MEDS: cloNIDine HCL 0.1 MG TAB PO SCH (21:48)
[2023-02-03] MEDS: amLODIPine 5 MG TAB PO SCH (21:48)
[2023-02-03] MEDS: WARFARIN 3 MG TAB PO SCH (21:48)
[2023-02-03] MEDS: ATORVASTATIN 80 MG TAB PO SCH (21:48)
[2023-02-03] MEDS: AMPICILLIN-SULBACTAM 3 GM in SODIUM CHLORIDE 0.9% 100 ML IVPB SCH (23:57)
[2023-02-04] MEDS: CALCIUM ACETATE 667 MG TAB PO SCH ×3 (06:17→18:28)
[2023-02-04] MEDS: INSULIN ASPART (NovoLOG) 100 UNIT/ML VIAL SQ SCH ×4 (06:17→22:02)
[2023-02-04 06:18] LABS: Glucose,Whole Blood 103 mg/dL (70-110)
[2023-02-04 07:10] LABS: INR 1.9 (<1.2)
[2023-02-04] MEDS: AMPICILLIN-SULBACTAM 3 GM in SODIUM CHLORIDE 0.9% 100 ML IVPB SCH ×3 (08:19→23:50)
[2023-02-04] MEDS: PANTOPRAZOLE 40 MG TABLET PO SCH (08:22)
[2023-02-04] MEDS: CHOLECALCIFEROL 25 MCG (1000 IU) TABLET PO SCH (08:22)
[2023-02-04] MEDS: amLODIPine 5 MG TAB PO SCH ×2 (08:22→22:03)
[2023-02-04] MEDS: cloNIDine HCL 0.1 MG TAB PO SCH ×2 (08:23→22:02)
[2023-02-04] MEDS: METOPROLOL TARTRATE 50 MG TAB PO SCH (08:23)
[2023-02-04] MEDS: busPIRone HCl 5 MG TAB PO SCH (08:23)
[2023-02-04] MEDS: hydrALAZINE HCL 25 MG TAB PO SCH (08:23)
[2023-02-04] MEDS: SIMETHICONE 80 MG CHEWABLE PO SCH ×4 (08:29→22:02)
[2023-02-04 09:11] LABS: Basophils # (A) 0.03 X 10*3/uL (0.00-0.10); Basophils % (A) 0.3 %; Eosinophils # (A) 0.03 X 10*3/uL (0.04-0.35); Eosinophils % (A) 0.3 %; HCT 27.7 % (39.6-50.0); HGB 8.7 g/dL (13.0-17.0); Lymphocytes # (A) 1.73 X 10*3/uL (0.90-5.00); Lymphocytes % (A) 18.8 %; MCH 27.3 pg (27.0-32.0); MCHC 31.4 g/dL (32.0-37.0); MCV 86.8 FL (80.0-97.0); Mean Platelet Volume 9.1 FL (9.5-12.2); Monocytes # (A) 1.04 X 10*3/uL (0.20-1.00); Monocytes % (A) 11.3 %; NRBC Per 100 WBC 0 X 10*3/uL (0.00-0.01); Neutrophils # (A) 6.35 X 10*3/uL (1.80-7.70); Neutrophils % (A) 68.9 %; Platelet Count 347 X 10*3/uL (140-440); RBC 3.19 X 10*6/uL (4.40-5.60); WBC 9.22 X 10*3/uL (4.50-10.00)
[2023-02-04] MEDS: ACETAMINOPHEN TAB 325 MG TAB PO PRN ×2 (09:20→15:59)
[2023-02-04 10:47] LABS: BUN/Creat Ratio 10.25 Ratio (12.00-20.00); Blood Urea Nitrogen 12.3 mg/dL (9.0-27.0); Calcium 8.5 mg/dL (8.7-10.3); Carbon Dioxide 23.7 mmol/L (21.6-31.8); Chloride 103 mmol/L (96-109); Glucose 93 mg/dL (70-110); Magnesium 2.2 mg/dL (1.5-2.4); Potassium 3.8 mmol/L (3.5-5.5); Sodium 139 mmol/L (135-145)
[2023-02-04 11:35] LABS: Glucose,Whole Blood 185 mg/dL (70-110)
--- NOTE | 2023-02-04 13:44 | P.PN ---
Subjective Progress Note Date: 02/04/23 Hospital course: Patient is a very pleasant 78-year-old male with a past medical history of CAD with stent, atrial fibrillation on anticoagulation with Coumadin, hypertension, hyperlipidemia, COPD, insulin-dependent diabetes mellitus, gout, and dementia. He presented to the emergency department with a chief complaint of increased confusion and inability to ambulate. Patient underwent full evaluation in the emergency department. Vital signs upon reviewed. Blood pressure 122/72 heart rate 112 temp 97.6F and SpO2 of 93% on room air. Labs completed and reviewed. CBC showing mild leukocytosis with WBC count of 10.7 and Normocytic anemia with hemoglobin of 9.6 which is stable at baseline level. BMP unremarkable. Glucose slightly elevated at 187. Initial lactate was elevated at 2.1. Magnesium was low at 1.4. Liver profile showing no significant abnormalities with the e xception of hypoalbuminemia with albumin of 3.0. Urinalysis was negative for infection. Influenza A, influenza B, RNC, and Covid PCR were all negative. EKG completed showing sinus tachycardia at 108 bpm. X-ray left foot completed showing no definitive evidence for osseous erosion revealing soft tissue edema with calcaneal plantar spurring and calcaneal Achilles enthesophyte are present. Patient was started on IV antibiotics of vancomycin and Unasyn and being admitted under our services with consultation to infectious disease and wound care. Physical exam: Patient seen and fully evaluated at bedside this morning. His mentation had significantly improved and patient is alert to person, place, time, and situation this morning. He reports significant pain to left heel otherwise denies any needs or complaints at this time. Vital signs reviewed and stable. General: Nontoxic, no distress and appears stated age. Derm: Skin warm and dry, normal coloration for ethnicity. Head: Atraumatic, normocephalic and symmetric. Eyes: EOMs intact, no lid lag, and anicteric sclera Mouth: no lip lesions, mucus membranes moist Cardiovascular: regular rate and rhythm with normal S1S2, no murmur, positive posterior tibial pulses bilaterally, and cap refill < 2 seconds. Lungs: Respirations even, regular, and unlabored on room air. Lungs CTA bilaterally, no rhonchi, no rales, no wheezing, and no accessory muscle usage. Abdominal: soft, nontender to palpation, no guarding, no appreciable organomegaly Ext: No gross muscle atrophy, no edema, no contractures. Movement and sensation intact. Patient with bilateral lower extremity redness with large open ulcer/wound to left heel seeping clear serosanguineous drainage. Neuro: Speech clear, face symmetrical. GCS 14 Psych: Alert and oriented to person, place, time, and situation this morning. Assessment and Plan of Care: Diabetic ulcer to left heel, with concerns of surrounding cellulitis and infection Lactic acidosis Sinus tachycardia Leukocytosis Acute metabolic encephalopathy, unclear cause possibly underlying infectious pr ocess secondary to above versus worsening baseline dementia. Resolved. Weakness and inability to ambulate likely secondary to above Hypomagnesemia, resolved Consult placed to infectious disease for diabetic wound care/management of infected diabetic wound Continuation of IV antibiotics with Unasyn 3 g every 8 hours and vancomycin pending further recommendations from infectious disease. Follow-up on Blood culture and wound culture results Wound care and order placed for air boot/heel protector boot for left foot CT head was negative for acute intercranial process. Fall precautions to remain in place. Continue BuSpar 15 mg daily and Aricept 10 mg nightly. Consult PT/OT for evaluation for rehab Consult case management for assistance with placement in custodial facility. Insulin-dependent diabetes mellitus with hyperglycemia -Patient placed on glycemic protocol with NovoLog sliding scale and to continue with Levemir 15 units nightly. -Hemoglobin A1c 8%. CAD with stent Hypertension Hyperlipidemia Paroxysmal atrial fibrillation COPD not in exacerbation -Continue anticoagulation with Coumadin, pharmacy to dose for goal INR of 2-3 (currently therapeutic at 2.1 ) atorvastatin 80 mg nightly, clonidine 0.1 mg twice daily, hydralazine 75 mg daily, and metoprolol 50 mg daily. Data and imaging reviewed: Morning labs completed and reviewed. CBC showing stable normocytic anemia with hemoglobin of 8.7. INR 1.9. BMP showing slightly elevated anion gap of 12.3 otherwise normal findings. Hypomagnesemia resolved with repeat Magnesium 2.2. Vital signs reviewed. Blood pressure 167/65, heart rate 75, respiratory rate 18, temp 98.1F, SpO2 of 97% on room air. CODE STATUS: Discussed CODE STATUS with patient's and daughter at bedside patient is a DO NOT RESUSCITATE/DO NOT INTUBATE DVT prophylaxis: Coumadin Anticipated discharge date: Clinical course to determine Anticipated discharge place: custodial facility for placement Patient was seen independently by Nurse Practitioner. This document was prepared using Dragon dictation software. Please allow for errors in commercial title examiner while rare they do occur. Terry Dorman, EVENT SALES MANAGER rendered care for this patient independently, reviewed the findings and plan as documented in the note above. I did not physically speak with or examine the patient on this date. Objective - Vital Signs Vital signs: Vital Signs Temp 98.1 F 02/04/23 02:35 Pulse 73 02/04/23 02:35 Resp 16 02/04/23 02:35 BP 149/65 02/04/23 02:35 Pulse Ox 96 02/04/23 02:35 FiO2 Intake & Output 02/03/23 02/04/23 02/04/23 18:59 06:59 18:59 Weight 88.451 kg 88.451 kg Other: Voiding Method Diaper Diaper Incontinent Incontinent # Voids 4 - Labs CBC & Chem 7: 02/04/23 06:33 02/04/23 06:33 Labs: Abnormal Lab Results - Last 24 Hours (Table) 02/03/23 02/03/23 02/03/23 Range/Units 09:40 09:40 09:40 WBC 10.7 H (3.8-10.6) k/uL RBC 3.39 L (4.30-5.90) m/uL Hgb 9.6 L (13.0-17.5) gm/dL Hct 29.2 L (39.0-53.0) % Neutrophils # 8.4 H (1.3-7.7) k/uL PT (10.0-12.5) sec INR (<1.2) Sodium 136 L (137-145) mmol/L Glucose 187 H (74-99) mg/dL POC Glucose (mg/dL) (70-110) mg/dL Plasma Lactic Acid Kenny (0.7-2.0) mmol/L Magnesium 1.4 L (1.6-2.3) mg/dL Total Protein 6.1 L (6.3-8.2) g/dL Albumin 3.0 L (3.5-5.0) g/dL Urine Protein Trace H (Negative) 02/03/23 02/03/23 02/03/23 Range/Units 09:40 17:20 18:02 WBC (3.8-10.6) k/uL RBC (4.30-5.90) m/uL Hgb (13.0-17.5) gm/dL Hct (39.0-53.0) % Neutrophils # (1.3-7.7) k/uL PT 21.2 H (10.0-12.5) sec INR 2.1 H (<1.2) Sodium (137-145) mmol/L Glucose (74-99) mg/dL POC Glucose (mg/dL) 212 H (70-110) mg/dL Plasma Lactic Acid Kenny 2.1 H* (0.7-2.0) mmol/L Magnesium (1.6-2.3) mg/dL Total Protein (6.3-8.2) g/dL Albumin (3.5-5.0) g/dL Urine Protein (Negative) 02/03/23 02/04/23 Range/Units 21:30 06:33 WBC (3.8-10.6) k/uL RBC (4.30-5.90) m/uL Hgb (13.0-17.5) gm/dL Hct (39.0-53.0) % Neutrophils # (1.3-7.7) k/uL PT 19.0 H (10.0-12.5) sec INR 1.9 H (<1.2) Sodium (137-145) mmol/L Glucose (74-99) mg/dL POC Glucose (mg/dL) 134 H (70-110) mg/dL Plasma Lactic Acid Kenny (0.7-2.0) mmol/L Magnesium (1.6-2.3) mg/dL Total Protein (6.3-8.2) g/dL Albumin (3.5-5.0) g/dL Urine Protein (Negative) Microbiology - Last 24 Hours (Table) 02/03/23 19:20 Gram Stain - Preliminary Foot - Left
[2023-02-04] MEDS: VANCOMYCIN 1,750 MG in SODIUM CHLORIDE 0.9% 500 ML 500 ML IVPB SCH (15:44)
--- NOTE | 2023-02-04 16:07 | XR ---
EXAMINATION TYPE: XR chest 2V DATE OF EXAM: 02/04/2023 3:51 PM CLINICAL INDICATION:Male, 78 years old with history of cough/congestion; H COMPARISON: Chest radiographs from 12/22/2022 TECHNIQUE: XR chest 2V Frontal and lateral views of the chest. FINDINGS: Lungs/Pleura: There is no evidence of pleural effusion, focal consolidation, or pneumothorax. Pulmonary vascularity: Unremarkable. Heart/mediastinum: Cardiomediastinal silhouette is unremarkable. Musculoskeletal: No acute osseous pathology. IMPRESSION: 1. No acute cardiopulmonary disease/process. 2. Cardiomegaly.
[2023-02-04 17:05] LABS: Glucose,Whole Blood 189 mg/dL (70-110)
[2023-02-04] MEDS ORDERED: WARFARIN 0.5 MG TAB PO ONE (18:00)
[2023-02-04] MEDS: WARFARIN 3 MG TAB PO SCH (18:28)
[2023-02-04 20:22] LABS: Glucose,Whole Blood 211 mg/dL (70-110)
[2023-02-04] MEDS: ATORVASTATIN 80 MG TAB PO SCH (22:02)
[2023-02-04] MEDS: INSULIN DETEMIR (LEVEMIR) 100 UNIT/ML SYR SQ SCH (22:02)
[2023-02-04] MEDS: DONEPEZIL 10 MG TAB PO SCH (22:03)
--- NOTE | 2023-02-04 22:32 | P.CONS ---
History of Present Illness - Reason for Consult Consult date: 02/04/23 - History of Present Illness Patient is a 78-year-old male past medical history significant for diabetes mellitus hypertension hyperlipidemia LA COPD recently admitted to this facility the patient was treated for toxic metabolic cephalopathy secondary acute kidney injury requiring dialysis patient was stabilized and subsequently transferred to rehab, the patient has been recently discharged patient apparent ly has developed a pressure ulcer to the left heel area with the daughter mentions started when he was in hospital in December and has been taking care of initially at the custodial and now at home by the home care nurse, patient has been brought to the hospital yesterday morning concerning for incontinent of urine with increased weakness and concern for possible UTI patient denies high- grade fever or chills and no fever have been recorded during this hospital stay patient did have a white count of 10.7 with a left shift creatinine is 1.15 liver enzymes are normal urine was negative influenza RSV COVID testing was negative patient did have a foot x-ray not evident bony abnormality CT the brain was negative for any bleed patient was started on vancomycin and Unasyn infectious disease was consulted for further management of antibiotic therapy patient did have history of COPD and did have a congested cough per the daughter patient mention unable to bring up any sputum, patient be complaining of pain to the left heel area to be sharp with intensity of 8 out of 10 without any radiation and did have some improvement with the pain medication has received so far Past Medical History Past Medical History: COPD, Diabetes Mellitus, Hyperlipidemia, Hypertension, Myocardial Infarction (LA) Additional Past Medical History / Comment(s): Recent sore R great toe-healed, gout. Last Myocardial Infarction Date:: 1991 History of Any Multi-Drug Resistant Organisms: None Reported Past Surgical History: Heart Catheterization, Heart Catheterization With Stent Additional Past Surgical History / Comment(s): 01/18/16 cardiac stents to RCA x2. Other surgical hx: balloon angiioplasty 1991, nathan cataracts Past Anesthesia/Blood Transfusion Reactions: No Reported Reaction Date of Last Stent Placement:: 01/19/16 Past Psychological History: No Psychological Hx Reported Smoking Status: Never smoker Past Alcohol Use History: None Reported Additional Past Alcohol Use History / Comment(s): quit smoking regularly 1991, current occ cigarette Past Drug Use History: None Reported - Past Family History Mother Family Medical History: No Reported History Additional Family Medical History / Comment(s): Mother is healthy and is 89yrs old. Father Family Medical History: Cancer Additional Family Medical History / Comment(s): "blood cancer". at the age of 73 yrs. Medications and Allergies Home Medications Medication Instructions Recorded Confirmed Type Atorvastatin [Lipitor] 80 mg PO HS 01/14/16 02/03/23 History Loratadine 10 mg PO DAILY 01/14/16 02/03/23 History amLODIPine BESYLATE [Norvasc] 5 mg PO BID 01/14/16 02/03/23 History busPIRone HCL 15 mg PO DAILY 01/14/16 02/03/23 History cloNIDine HCL [Catapres] 0.1 mg PO BID 01/14/16 02/03/23 History Cholecalciferol (Vitamin D3) 75 mcg PO DAILY 12/18/22 02/03/23 History [Vitamin D3 (3000 Iu)] Donepezil [Aricept] 10 mg PO HS 12/18/22 02/03/23 History Calcium Acetate [PhosLo] 667 mg PO TID-W/MEALS tab 12/29/22 02/03/23 Rx Furosemide [Lasix] 40 mg PO DAILY #30 tablet 12/29/22 02/03/23 Rx Pantoprazole [Protonix] 40 mg PO DAILY #30 tab 12/29/22 02/03/23 Rx Simethicone Chew [Mylicon Chew] 40 mg PO QID 5 Days tab 12/29/22 02/03/23 Rx Acetaminophen Tab [Tylenol] 650 mg PO Q4H PRN 02/03/23 02/03/23 History INSULIN ASPART (NovoLOG) [NovoLOG See Protocol SQ ACHS 02/03/23 02/03/23 History (formulary)] Insulin Detemir (Levemir) [Levemir] 15 unit SQ HS 02/03/23 02/03/23 History Metoprolol Tartrate [Lopressor] 50 mg PO DAILY 02/03/23 02/03/23 History Warfarin [Coumadin] 3 mg PO DAILY@1700 02/03/23 02/03/23 History hydrALAZINE HCL [Apresoline] 75 mg PO DAILY 02/03/23 02/03/23 History Allergies Allergy/AdvReac Type Severity Reaction Status Date / Time No Known Allergies Allergy Verified 02/03/23 15:52 Physical Exam Vitals: Vital Signs Temp Pulse Pulse Resp BP BP Pulse Ox 02/04/23 08:00 18 02/04/23 07:45 98.1 F 75 18 167/65 97 02/04/23 02:35 98.1 F 73 16 149/65 96 02/03/23 21:40 97.9 F 86 16 141/69 95 02/03/23 18:45 84 22 156/73 95 02/03/23 17:10 98.6 F 105 H 22 159/74 94 L 02/03/23 14:43 118 H 17 157/75 95 Intake and Output 02/03/23 02/04/23 02/04/23 22:59 06:59 14:59 Other: Voiding Method Diaper Diaper Diaper Incontinent Incontinent Incontinent # Voids 0 4 Weight 88.451 kg Results CBC & Chem 7: 02/04/23 06:33 02/04/23 06:33 Labs: Abnormal Lab Results - Last 24 Hours (Table) 02/03/23 02/03/23 02/03/23 Range/Units 17:20 18:02 21:30 RBC (4.40-5.60) X 10*6/uL Hgb (13.0-17.0) g/dL Hct (39.6-50.0) % MCHC (32.0-37.0) g/dL RDW (11.5-14.5) % MPV (9.5-12.2) FL Monocytes # (0.20-1.00) X 10*3/uL Eosinophils # (0.04-0.35) X 10*3/uL PT 21.2 H (10.0-12.5) sec INR 2.1 H (<1.2) Anion Gap (4.00-12.00) mmol/L BUN/Creatinine Ratio (12.00-20.00) Ratio POC Glucose (mg/dL) 212 H 134 H (70-110) mg/dL Hemoglobin A1c (<=6.0) % Calcium (8.7-10.3) mg/dL 02/04/23 02/04/23 02/04/23 Range/Units 06:33 06:33 06:33 RBC 3.19 L (4.40-5.60) X 10*6/uL Hgb 8.7 L (13.0-17.0) g/dL Hct 27.7 L (39.6-50.0) % MCHC 31.4 L (32.0-37.0) g/dL RDW 15.0 H (11.5-14.5) % MPV 9.1 L (9.5-12.2) FL Monocytes # 1.04 H (0.20-1.00) X 10*3/uL Eosinophils # 0.03 L (0.04-0.35) X 10*3/uL PT (10.0-12.5) sec INR (<1.2) Anion Gap 12.30 H (4.00-12.00) mmol/L BUN/Creatinine Ratio 10.25 L (12.00-20.00) Ratio POC Glucose (mg/dL) (70-110) mg/dL Hemoglobin A1c 8.0 H (<=6.0) % Calcium 8.5 L (8.7-10.3) mg/dL 02/04/23 02/04/23 Range/Units 06:33 11:33 RBC (4.40-5.60) X 10*6/uL Hgb (13.0-17.0) g/dL Hct (39.6-50.0) % MCHC (32.0-37.0) g/dL RDW (11.5-14.5) % MPV (9.5-12.2) FL Monocytes # (0.20-1.00) X 10*3/uL Eosinophils # (0.04-0.35) X 10*3/uL PT 19.0 H (10.0-12.5) sec INR 1.9 H (<1.2) Anion Gap (4.00-12.00) mmol/L BUN/Creatinine Ratio (12.00-20.00) Ratio POC Glucose (mg/dL) 185 H (70-110) mg/dL Hemoglobin A1c (<=6.0) % Calcium (8.7-10.3) mg/dL Microbiology - Last 24 Hours (Table) 02/03/23 19:20 Gram Stain - Preliminary Foot - Left Assessment and Plan Plan: 1patient presented to hospital with weakness some mental status changes concerning for possible UTI however the patient did have a negative UA patient was noticed to have left heel stage II pressure ulcer and concern for possible cellulitis likely from gram-positive skin [place] no evidence of infection and redness of the body he did have a congested cough and some coarse breath sounds underlying pulmonary source not entirely excluded 2-we will obtain chest x-ray PA and lateral check inflammatory markers 3-local wound care to the left heel with a dry Aquacel dressing keep the area of the pressure 4-we will continue Unasyn and vancomycin while waiting for the culture to finalize Daughter at the bedside multiple questions were answered We will follow on clinical condition and cultures to further adjust medication if needed Thank you for this consultation we will follow the patient along with you Dictation was produced using [employer] dictation software. please excuse any grammatical, word or spelling errors. Time with Patient: Greater than 30
[2023-02-05 06:13] LABS: INR 2.2 (<1.2); Prothrombin Time 22.2 sec (10.0-12.5)
[2023-02-05 06:24] LABS: Glucose,Whole Blood 112 mg/dL (70-110)
[2023-02-05] MEDS: INSULIN ASPART (NovoLOG) 100 UNIT/ML VIAL SQ SCH ×4 (06:24→20:59)
[2023-02-05] MEDS: PANTOPRAZOLE 40 MG TABLET PO SCH (08:46)
[2023-02-05] MEDS: busPIRone HCl 5 MG TAB PO SCH (08:46)
[2023-02-05] MEDS: hydrALAZINE HCL 25 MG TAB PO SCH (08:46)
[2023-02-05] MEDS: amLODIPine 5 MG TAB PO SCH ×2 (08:46→21:01)
[2023-02-05] MEDS: AMPICILLIN-SULBACTAM 3 GM in SODIUM CHLORIDE 0.9% 100 ML IVPB SCH ×2 (08:46→16:12)
[2023-02-05] MEDS: METOPROLOL TARTRATE 50 MG TAB PO SCH (08:46)
[2023-02-05] MEDS: CHOLECALCIFEROL 25 MCG (1000 IU) TABLET PO SCH (08:46)
[2023-02-05] MEDS: CALCIUM ACETATE 667 MG TAB PO SCH ×3 (08:47→17:14)
[2023-02-05] MEDS: SIMETHICONE 80 MG CHEWABLE PO SCH ×4 (08:47→21:01)
[2023-02-05] MEDS: cloNIDine HCL 0.1 MG TAB PO SCH ×2 (08:50→21:00)
[2023-02-05] MEDS: ACETAMINOPHEN TAB 325 MG TAB PO PRN (08:50)
[2023-02-05] MEDS ORDERED: MORPHINE SULFATE 4 MG/ML SYRINGE IVP STA (10:21)
[2023-02-05 10:48] LABS: ALT 7 U/L (10-49); AST 15 U/L (14-35); Albumin 2.8 g/dL (3.8-4.9); Albumin/Globulin Ratio 1.12 Ratio (1.60-3.17); Alkaline Phosphatase 40 U/L (41-126); BUN/Creat Ratio 11.18 Ratio (12.00-20.00); Blood Urea Nitrogen 12.3 mg/dL (9.0-27.0); Calcium 8.4 mg/dL (8.7-10.3); Carbon Dioxide 24.5 mmol/L (21.6-31.8); Chloride 105 mmol/L (96-109); Globulin 2.5 g/dL (1.6-3.3); Glucose 103 mg/dL (70-110); Potassium 3.8 mmol/L (3.5-5.5); Sodium 140 mmol/L (135-145); Total Bilirubin 0.3 mg/dL (0.3-1.2); Total Protein 5.3 g/dL (6.2-8.2)
[2023-02-05 11:26] LABS: Basophils # (A) 0.05 X 10*3/uL (0.00-0.10); Basophils % (A) 0.5 %; Crenated RBC 2+; Eosinophils % (A) 2.2 %; HCT 26.9 % (39.6-50.0); HGB 8.3 g/dL (13.0-17.0); Lymphocytes # (A) 1.99 X 10*3/uL (0.90-5.00); Lymphocytes % (A) 21.6 %; MCH 27.9 pg (27.0-32.0); MCHC 30.9 g/dL (32.0-37.0); MCV 90.3 FL (80.0-97.0); Mean Platelet Volume 10.3 FL (9.5-12.2); Monocytes # (A) 1.03 X 10*3/uL (0.20-1.00); Monocytes % (A) 11.2 %; NRBC Per 100 WBC 0 X 10*3/uL (0.00-0.01); Neutrophils % (A) 64.1 %; Platelet Count 303 X 10*3/uL (140-440); RBC 2.98 X 10*6/uL (4.40-5.60); RDW 14.8 % (11.5-14.5); WBC 9.21 X 10*3/uL (4.50-10.00)
[2023-02-05 11:33] LABS: Glucose,Whole Blood 196 mg/dL (70-110)
--- NOTE | 2023-02-05 12:22 | P.PN ---
Subjective Progress Note Date: 02/05/23 Hospital course: Patient is a very pleasant 78-year-old male with a past medical history of CAD with stent, atrial fibrillation on anticoagulation with Coumadin, hypertension, hyperlipidemia, COPD, insulin-dependent diabetes mellitus, gout, and dementia. He presented to the emergency department with a chief complaint of increased confusion and inability to ambulate. Patient underwent full evaluation in the emergency department. Vital signs upon reviewed. Blood pressure 122/72 heart rate 112 temp 97.6F and SpO2 of 93% on room air. Labs completed and reviewed. CBC showing mild leukocytosis with WBC count of 10.7 and Normocytic anemia with hemoglobin of 9.6 which is stable at baseline level. BMP unremarkable. Glucose slightly elevated at 187. Initial lactate was elevated at 2.1. Magnesium was low at 1.4. Liver profile showing no significant abnormalities with the e xception of hypoalbuminemia with albumin of 3.0. Urinalysis was negative for infection. Influenza A, influenza B, RNC, and Covid PCR were all negative. EKG completed showing sinus tachycardia at 108 bpm. X-ray left foot completed showing no definitive evidence for osseous erosion revealing soft tissue edema with calcaneal plantar spurring and calcaneal Achilles enthesophyte are present. Patient was started on IV antibiotics of vancomycin and Unasyn and being admitted under our services with consultation to infectious disease and wound care. Physical exam: Patient seen and fully evaluated at bedside this morning. His mentation had significantly improved and patient is alert to person, place, time, and situation this morning. He reports significant pain to left heel otherwise denies any needs or complaints at this time. Vital signs reviewed and stable. General: Nontoxic, no distress and appears stated age. Derm: Skin warm and dry, normal coloration for ethnicity. Head: Atraumatic, normocephalic and symmetric. Eyes: EOMs intact, no lid lag, and anicteric sclera Mouth: no lip lesions, mucus membranes moist Cardiovascular: regular rate and rhythm with normal S1S2, no murmur, positive posterior tibial pulses bilaterally, and cap refill < 2 seconds. Lungs: Respirations even, regular, and unlabored on room air. Lungs CTA bilaterally, no rhonchi, no rales, no wheezing, and no accessory muscle usage. Abdominal: soft, nontender to palpation, no guarding, no appreciable organomegaly Ext: No gross muscle atrophy, no edema, no contractures. Movement and sensation intact. Patient with bilateral lower extremity redness with large open ulcer/wound to left heel seeping clear serosanguineous drainage. Neuro: Speech clear, face symmetrical. GCS 14 Psych: Alert and oriented to person, place, time, and situation this morning. Assessment and Plan of Care: Diabetic ulcer to left heel, with concerns of surrounding cellulitis and infection Lactic acidosis Sinus tachycardia Leukocytosis Acute metabolic encephalopathy, unclear cause possibly underlying infectious pr ocess secondary to above versus worsening baseline dementia. Resolved. Weakness and inability to ambulate likely secondary to above Hypomagnesemia, resolved Consult placed to infectious disease for diabetic wound care/management of infected diabetic wound Patient reports persistent uncontrolled pain and left heel/foot states shooting pain rated 10 out of 10. Patient started on Neurontin 100 mg 3 times daily and we will evaluate pain management further. Continuation of IV antibiotics with Unasyn 3 g every 8 hours and vancomycin pending further recommendations from infectious disease. Follow-up on Blood culture and wound culture results Continue Wound care and order placed for air boot/heel protector boot for left foot CT head was negative for acute intercranial process. Fall precautions to remain in place. Continue BuSpar 15 mg daily and Aricept 10 mg nightly. Consult PT/OT for evaluation for rehab Consult case management for assistance with placement in assisted [facility]. Insulin-dependent diabetes mellitus with hyperglycemia -Patient placed on glycemic protocol with NovoLog sliding scale and to continue with Levemir 15 units nightly. -Hemoglobin A1c 8%. CAD with stent Hypertension Hyperlipidemia Paroxysmal atrial fibrillation COPD not in exacerbation -Continue anticoagulation with Coumadin, pharmacy to dose for goal INR of 2-3 (currently therapeutic at 2.1 ) atorvastatin 80 mg nightly, clonidine 0.1 mg twice daily, hydralazine 75 mg daily, and metoprolol 50 mg daily. Data and imaging reviewed: Morning labs completed and reviewed. CBC showing stable normocytic anemia with hemoglobin of 8.3. INR therapeutic at 2.2. BMP normal findings. Vital signs reviewed. Blood pressure 160/72, heart rate 72, respiratory rate 18, temp 98.1F, SpO2 of 97% on room air. CODE STATUS: Discussed CODE STATUS with patient's and daughter at bedside patient is a DO NOT RESUSCITATE/DO NOT INTUBATE DVT prophylaxis: Coumadin Anticipated discharge date: Clinical course to determine, likely within the next [address]: longterm facility for placement Patient was seen independently by Nurse Practitioner. This document was prepared using [employer] dictation software. Please allow for errors in vegetable farming supervisor while rare they do occur. Terry Dorman PACKING INSPECTOR rendered care for this patient independently, reviewed the findings and plan as documented in the note above. I did not physically speak with or examine the patient on this date. Objective - Vital Signs Vital signs: Vital Signs Temp 98.1 F 02/05/23 07:20 Pulse 72 02/05/23 07:20 Resp 18 02/05/23 07:20 BP 160/72 02/05/23 07:20 Pulse Ox 97 02/05/23 07:20 FiO2 Intake & Output 02/04/23 02/05/23 02/05/23 18:59 06:59 18:59 Other: Voiding Method Diaper Diaper Incontinent Incontinent # Voids 1 2 - Labs CBC & Chem 7: 02/05/23 05:41 02/05/23 05:41 Labs: Abnormal Lab Results - Last 24 Hours (Table) 02/04/23 02/04/23 02/04/23 Range/Units 06:33 06:33 06:33 RBC 3.19 L (4.40-5.60) X 10*6/uL Hgb 8.7 L (13.0-17.0) g/dL Hct 27.7 L (39.6-50.0) % MCHC 31.4 L (32.0-37.0) g/dL RDW 15.0 H (11.5-14.5) % MPV 9.1 L (9.5-12.2) FL Monocytes # 1.04 H (0.20-1.00) X 10*3/uL Eosinophils # 0.03 L (0.04-0.35) X 10*3/uL PT (10.0-12.5) sec INR (<1.2) Anion Gap 12.30 H (4.00-12.00) mmol/L BUN/Creatinine Ratio 10.25 L (12.00-20.00) Ratio POC Glucose (mg/dL) (70-110) mg/dL Hemoglobin A1c 8.0 H (<=6.0) % Calcium 8.5 L (8.7-10.3) mg/dL 02/04/23 02/04/23 02/04/23 Range/Units 11:33 17:03 20:20 RBC (4.40-5.60) X 10*6/uL Hgb (13.0-17.0) g/dL Hct (39.6-50.0) % MCHC (32.0-37.0) g/dL RDW (11.5-14.5) % MPV (9.5-12.2) FL Monocytes # (0.20-1.00) X 10*3/uL Eosinophils # (0.04-0.35) X 10*3/uL PT (10.0-12.5) sec INR (<1.2) Anion Gap (4.00-12.00) mmol/L BUN/Creatinine Ratio (12.00-20.00) Ratio POC Glucose (mg/dL) 185 H 189 H 211 H (70-110) mg/dL Hemoglobin A1c (<=6.0) % Calcium (8.7-10.3) mg/dL 02/05/23 02/05/23 Range/Units 05:41 06:21 RBC (4.40-5.60) X 10*6/uL Hgb (13.0-17.0) g/dL Hct (39.6-50.0) % MCHC (32.0-37.0) g/dL RDW (11.5-14.5) % MPV (9.5-12.2) FL Monocytes # (0.20-1.00) X 10*3/uL Eosinophils # (0.04-0.35) X 10*3/uL PT 22.2 H (10.0-12.5) sec INR 2.2 H (<1.2) Anion Gap (4.00-12.00) mmol/L BUN/Creatinine Ratio (12.00-20.00) Ratio POC Glucose (mg/dL) 112 H (70-110) mg/dL Hemoglobin A1c (<=6.0) % Calcium (8.7-10.3) mg/dL Microbiology - Last 24 Hours (Table) 02/03/23 12:05 Blood Culture - Preliminary Blood 02/03/23 11:50 Blood Culture - Preliminary Blood 02/03/23 19:20 Gram Stain - Preliminary Foot - Left
[2023-02-05] MEDS: GABAPENTIN 100 MG CAP PO SCH ×3 (12:30→21:04)
[2023-02-05] MEDS: VANCOMYCIN 1,750 MG in SODIUM CHLORIDE 0.9% 500 ML 500 ML IVPB SCH (14:36)
--- NOTE | 2023-02-05 14:38 | P.PN ---
Subjective Progress Note Date: 02/05/23 Principal diagnosis: Reason for follow-up is left heel ulcer and cellulitis Patient is a 78-year-old male past medical history significant for diabetes mellitus hypertension hyperlipidemia [place] COPD has been brought to the hospital for evaluation of weakness and some mental status changes noticed to have a left heel ulcer and concerning for cellulitis prompting this infectious disease consultation did have a negative UA chest x-ray was negative for any pneumonia 02/05/2023 the patient continues to be afebrile, the patient is breathing comfortably on room air without need for supplemental oxygen patient denies having any chest pain shortness of breath or cough, the patient denies nausea vomiting abdominal pain, has been complaining of pain to the left heel area. Patient white count is 9.21, creatinine is 1.1, cultures are currently pending Objective - Vital Signs Vital signs: Vital Signs Temp 97.6 F 02/05/23 14:25 Pulse 65 02/05/23 14:25 Resp 16 02/05/23 14:25 BP 112/61 02/05/23 14:25 Pulse Ox 96 02/05/23 14:25 FiO2 Intake & Output 02/04/23 02/05/23 02/05/23 18:59 06:59 18:59 Output Total 950 Balance -950 Output: Urine 950 Other: Voiding Method Diaper Diaper Diaper Incontinent Incontinent Incontinent # Voids 1 2 - Exam GENERAL DESCRIPTION: Middle-age male up in the chair in no distress RESPIRATORY SYSTEM: Unlabored breathing , decreased breath sounds at bases HEART: S1 S2 regular rate and rhythm , ABDOMEN: Soft , no tenderness EXTREMITIES: Left heel is currently dressed - Labs CBC & Chem 7: 02/05/23 05:41 02/05/23 05:41 Labs: Abnormal Lab Results - Last 24 Hours (Table) 02/04/23 02/04/23 02/05/23 Range/Units 17:03 20:20 05:41 RBC 2.98 L (4.40-5.60) X 10*6/uL Hgb 8.3 L (13.0-17.0) g/dL Hct 26.9 L (39.6-50.0) % MCHC 30.9 L (32.0-37.0) g/dL RDW 14.8 H (11.5-14.5) % Monocytes # 1.03 H (0.20-1.00) X 10*3/uL Crenated Cell 2+ A PT (10.0-12.5) sec INR (<1.2) BUN/Creatinine Ratio (12.00-20.00) Ratio POC Glucose (mg/dL) 189 H 211 H (70-110) mg/dL Calcium (8.7-10.3) mg/dL ALT (10-49) U/L Alkaline Phosphatase (41-126) U/L C-Reactive Protein (0.00-0.80) mg/dL Total Protein (6.2-8.2) g/dL Albumin (3.8-4.9) g/dL Albumin/Globulin Ratio (1.60-3.17) Ratio 02/05/23 02/05/23 02/05/23 Range/Units 05:41 05:41 06:21 RBC (4.40-5.60) X 10*6/uL Hgb (13.0-17.0) g/dL Hct (39.6-50.0) % MCHC (32.0-37.0) g/dL RDW (11.5-14.5) % Monocytes # (0.20-1.00) X 10*3/uL Crenated Cell PT 22.2 H (10.0-12.5) sec INR 2.2 H (<1.2) BUN/Creatinine Ratio 11.18 L (12.00-20.00) Ratio POC Glucose (mg/dL) 112 H (70-110) mg/dL Calcium 8.4 L (8.7-10.3) mg/dL ALT 7 L (10-49) U/L Alkaline Phosphatase 40 L (41-126) U/L C-Reactive Protein 14.60 H (0.00-0.80) mg/dL Total Protein 5.3 L (6.2-8.2) g/dL Albumin 2.8 L (3.8-4.9) g/dL Albumin/Globulin Ratio 1.12 L (1.60-3.17) Ratio 02/05/23 Range/Units 11:32 RBC (4.40-5.60) X 10*6/uL Hgb (13.0-17.0) g/dL Hct (39.6-50.0) % MCHC (32.0-37.0) g/dL RDW (11.5-14.5) % Monocytes # (0.20-1.00) X 10*3/uL Crenated Cell PT (10.0-12.5) sec INR (<1.2) BUN/Creatinine Ratio (12.00-20.00) Ratio POC Glucose (mg/dL) 196 H (70-110) mg/dL Calcium (8.7-10.3) mg/dL ALT (10-49) U/L Alkaline Phosphatase (41-126) U/L C-Reactive Protein (0.00-0.80) mg/dL Total Protein (6.2-8.2) g/dL Albumin (3.8-4.9) g/dL Albumin/Globulin Ratio (1.60-3.17) Ratio Microbiology - Last 24 Hours (Table) 02/03/23 12:05 Blood Culture - Preliminary Blood 02/03/23 11:50 Blood Culture - Preliminary Blood Assessment and Plan (1) Stage II pressure ulcer of left heel Current Visit: Yes Status: Acute Code(s): L89.622 - PRESSURE ULCER OF LEFT HEEL, STAGE 2 SNOMED Code(s): 15422314739117 (2) Diabetic foot infection Current Visit: Yes Status: Acute Code(s): E11.628 - TYPE 2 DIABETES MELLITUS WITH OTHER SKIN COMPLICATIONS; L08.9 - LOCAL INFECTION OF THE SKIN AND SUBCUTANEOUS TISSUE, UNSP SNOMED Code(s): 741871477 (3) Diabetic foot ulcer Current Visit: Yes Status: Acute Code(s): E11.621 - TYPE 2 DIABETES MELLITUS WITH FOOT ULCER; L97.509 - NON-PRESSURE CHRONIC ULCER OTH PRT UNSP FOOT W UNSP SEVERITY SNOMED Code(s): 388469281 (4) Ulcer of left foot Current Visit: Yes Status: Acute Code(s): L97.529 - NON-PRESSURE CHRONIC ULCER OTH PRT LEFT FOOT W UNSP SEVERITY SNOMED Code(s): 673571668 Plan: 1patient presented to hospital with weakness some mental status changes con cerning for possible UTI however the patient did have a negative UA patient was noticed to have left heel stage II pressure ulcer and concern for possible cellulitis likely from gram-positive skin [place] no evidence of infection and redness of the body he did have a congested cough and some coarse breath sounds underlying pulmonary source not entirely excluded 2chest x-ray was negative for acute infiltrate. 3blood and local cultures are currently pending. 4we will keep the patient on Unasyn and vancomycin while waiting for the culture to finalize and local wound care to continue with dry Aquacel silver dressing and keep the area off the pressure Dictation was produced using [employer] dictation software. please excuse any grammatical, word or spelling errors. Time with Patient: Less than 30
[2023-02-05 16:54] LABS: Glucose,Whole Blood 220 mg/dL (70-110)
[2023-02-05] MEDS: WARFARIN 3 MG TAB PO SCH (17:14)
[2023-02-05 20:42] LABS: Glucose,Whole Blood 102 mg/dL (70-110)
[2023-02-05] MEDS: ATORVASTATIN 80 MG TAB PO SCH (21:00)
[2023-02-05] MEDS: DONEPEZIL 10 MG TAB PO SCH (21:00)
[2023-02-05] MEDS: INSULIN DETEMIR (LEVEMIR) 100 UNIT/ML SYR SQ SCH (22:24)
[2023-02-06] MEDS: AMPICILLIN-SULBACTAM 3 GM in SODIUM CHLORIDE 0.9% 100 ML IVPB SCH ×5 (00:38→23:47)
[2023-02-06 06:02] LABS: Glucose,Whole Blood 113 mg/dL (70-110)
[2023-02-06] MEDS: INSULIN ASPART (NovoLOG) 100 UNIT/ML VIAL SQ SCH ×4 (06:10→21:51)
[2023-02-06] MEDS: ACETAMINOPHEN TAB 325 MG TAB PO PRN (06:47)
[2023-02-06 07:05] LABS: INR 3.1 (<1.2); Prothrombin Time 30.6 sec (10.0-12.5)
[2023-02-06 07:12] LABS: African American GFR (CKD) 83 (>60 ml/min/1.73 sqM); Non-African American GFR(CKD) 72 (>60 ml/min/1.73 sqM)
[2023-02-06] MEDS: hydrALAZINE HCL 25 MG TAB PO SCH (08:56)
[2023-02-06] MEDS: GABAPENTIN 100 MG CAP PO SCH ×3 (08:56→20:40)
[2023-02-06] MEDS: METOPROLOL TARTRATE 50 MG TAB PO SCH (08:56)
[2023-02-06] MEDS: PANTOPRAZOLE 40 MG TABLET PO SCH (08:56)
[2023-02-06] MEDS: amLODIPine 5 MG TAB PO SCH ×2 (08:56→20:39)
[2023-02-06] MEDS: CHOLECALCIFEROL 25 MCG (1000 IU) TABLET PO SCH (08:56)
[2023-02-06] MEDS: cloNIDine HCL 0.1 MG TAB PO SCH ×2 (08:56→20:39)
[2023-02-06] MEDS: busPIRone HCl 5 MG TAB PO SCH (08:56)
[2023-02-06] MEDS: CALCIUM ACETATE 667 MG TAB PO SCH ×3 (08:57→17:36)
[2023-02-06] MEDS: SIMETHICONE 80 MG CHEWABLE PO SCH ×4 (08:57→20:39)
[2023-02-06 12:05] LABS: Glucose,Whole Blood 149 mg/dL (70-110)
--- NOTE | 2023-02-06 14:21 | P.PN ---
Subjective Progress Note Date: 02/06/23 Principal diagnosis: Reason for follow-up is left heel ulcer and cellulitis Patient is a 78-year-old male past medical history significant for diabetes mellitus hypertension hyperlipidemia [place] COPD has been brought to the hospital for evaluation of weakness and some mental status changes noticed to have a left heel ulcer and concerning for cellulitis prompting this infectious disease consultation did have a negative UA chest x-ray was negative for any pneumonia On today's evaluation that is 02/06/2023, the patient remains to be afebrile the patient is breathing comfortably on room air, the patient denies any chest pain shortness of breath or cough no nausea vomiting no abdominal pain, denies any worsening pain to the left heel wound area Patient white count of 9.2 on as of yesterday creatinine 1.01 blood and local cultures negative Objective - Vital Signs Vital signs: Vital Signs Temp 98.4 F 02/06/23 07:20 Pulse 64 02/06/23 07:20 Resp 15 02/06/23 07:20 BP 130/66 02/06/23 07:20 Pulse Ox 99 02/06/23 07:20 FiO2 Intake & Output 02/05/23 02/06/23 02/06/23 18:59 06:59 18:59 Intake Total 200 100 Output Total 950 250 Balance -950 -50 100 Intake: Oral 200 100 Output: Urine 950 250 Other: Voiding Method Diaper External Catheter External Catheter Incontinent - Exam GENERAL DESCRIPTION: Middle-age male up in the chair in no distress RESPIRATORY SYSTEM: Unlabored breathing , decreased breath sounds at bases HEART: S1 S2 regular rate and rhythm , ABDOMEN: Soft , no tenderness EXTREMITIES: Left heel is currently dressed - Labs CBC & Chem 7: 02/05/23 05:41 02/06/23 06:40 Labs: Abnormal Lab Results - Last 24 Hours (Table) 02/05/23 02/05/23 02/05/23 Range/Units 05:41 11:32 16:52 RBC 2.98 L (4.40-5.60) X 10*6/uL Hgb 8.3 L (13.0-17.0) g/dL Hct 26.9 L (39.6-50.0) % MCHC 30.9 L (32.0-37.0) g/dL RDW 14.8 H (11.5-14.5) % Monocytes # 1.03 H (0.20-1.00) X 10*3/uL Crenated Cell 2+ A PT (10.0-12.5) sec INR (<1.2) POC Glucose (mg/dL) 196 H 220 H (70-110) mg/dL 02/06/23 02/06/23 Range/Units 05:58 06:40 RBC (4.40-5.60) X 10*6/uL Hgb (13.0-17.0) g/dL Hct (39.6-50.0) % MCHC (32.0-37.0) g/dL RDW (11.5-14.5) % Monocytes # (0.20-1.00) X 10*3/uL Crenated Cell PT 30.6 H (10.0-12.5) sec INR 3.1 H (<1.2) POC Glucose (mg/dL) 113 H (70-110) mg/dL Microbiology - Last 24 Hours (Table) 02/03/23 12:05 Blood Culture - Preliminary Blood 02/03/23 11:50 Blood Culture - Preliminary Blood 02/03/23 19:20 Gram Stain - Final Foot - Left Wound Culture - Final Assessment and Plan (1) Stage II pressure ulcer of left heel Current Visit: Yes Status: Acute Code(s): L89.622 - PRESSURE ULCER OF LEFT HEEL, STAGE 2 SNOMED Code(s): 89479222668733 (2) Diabetic foot infection Current Visit: Yes Status: Acute Code(s): E11.628 - TYPE 2 DIABETES MELLITUS WITH OTHER SKIN COMPLICATIONS; L08.9 - LOCAL INFECTION OF THE SKIN AND SUBCUTANEOUS TISSUE, UNSP SNOMED Code(s): 373571353 (3) Diabetic foot ulcer Current Visit: Yes Status: Acute Code(s): E11.621 - TYPE 2 DIABETES MELLITUS WITH FOOT ULCER; L97.509 - NON-PRESSURE CHRONIC ULCER OTH PRT UNSP FOOT W UNSP SEVERITY SNOMED Code(s): 491604521 (4) Ulcer of left foot Current Visit: Yes Status: Acute Code(s): L97.529 - NON-PRESSURE CHRONIC ULCER OTH PRT LEFT FOOT W UNSP SEVERITY SNOMED Code(s): 723385777 Plan: 1patient presented to hospital with weakness some mental status changes concerning for possible UTI however the patient did have a negative UA patient was noticed to have left heel stage II pressure ulcer and concern for possible cellulitis likely from gram-positive skin [place] no evidence of infection and redness of the body he did have a congested cough and some coarse breath sounds underlying pulmonary source not entirely excluded 2chest x-ray was negative for acute infiltrate. 3blood culture as well as local cultures are negative. 4we will continue with Unasyn discontinue vancomycin local wound care to continue with Aquacel dressing keep the area of the pressure Dictation was produced using [email or web address] dictation software. please excuse any grammatical, word or spelling errors. Time with Patient: Less than 30
[2023-02-06 14:48] VITALS: BMI 34.5
--- NOTE | 2023-02-06 15:41 | P.PN ---
Subjective Progress Note Date: 02/06/23 Hospital course: Patient is a very pleasant 78-year-old male with a past medical history of CAD with stent, atrial fibrillation on anticoagulation with Coumadin, hypertension, hyperlipidemia, COPD, insulin-dependent diabetes mellitus, gout, and dementia. He presented to the emergency department with a chief complaint of increased confusion and inability to ambulate. Patient underwent full evaluation in the emergency department. Vital signs upon reviewed. Blood pressure 122/72 heart rate 112 temp 97.6F and SpO2 of 93% on room air. Labs completed and reviewed. CBC showing mild leukocytosis with WBC count of 10.7 and Normocytic anemia with hemoglobin of 9.6 which is stable at baseline level. BMP unremarkable. Glucose slightly elevated at 187. Initial lactate was elevated at 2.1. Magnesium was low at 1.4. Liver profile showing no significant abnormalities with the e xception of hypoalbuminemia with albumin of 3.0. Urinalysis was negative for infection. Influenza A, influenza B, RNC, and Covid PCR were all negative. EKG completed showing sinus tachycardia at 108 bpm. X-ray left foot completed showing no definitive evidence for osseous erosion revealing soft tissue edema with calcaneal plantar spurring and calcaneal Achilles enthesophyte are present. Patient was started on IV antibiotics of vancomycin and Unasyn and being admitted under our services with consultation to infectious disease and wound care. Physical exam: Patient seen and fully evaluated at bedside this morning. His mentation remains intact and at baseline but pt also appears very agitated this morning and yelling out in frustration. Patient was angry this morning stating how do we expect him to work with physical therapy if he can't put weight down on his foot. Patient reports uncontrolled pain and left heel this morning. Patient was started on Neurontin 100 mg 3 times daily in addition to [place] 5/325 mg tablets every 4 hours as needed for pain. Vital signs reviewed and stable. General: Nontoxic, no distress and appears stated age. Derm: Skin warm and dry, normal coloration for ethnicity. Head: Atraumatic, normocephalic and symmetric. Eyes: EOMs intact, no lid lag, and anicteric sclera Mouth: no lip lesions, mucus membranes moist Cardiovascular: regular rate and rhythm with normal S1S2, no murmur, positive posterior tibial pulses bilaterally, and cap refill < 2 seconds. Lungs: Respirations even, regular, and unlabored on room air. Lungs CTA bilaterally, no rhonchi, no rales, no wheezing, and no accessory muscle usage. Abdominal: soft, nontender to palpation, no guarding, no appreciable organomegaly Ext: No gross muscle atrophy, no edema, no contractures. Movement and sensation intact. Patient with bilateral lower extremity redness with large o pen ulcer/wound to left heel seeping clear serosanguineous drainage. Neuro: Speech clear, face symmetrical. GCS 14 Psych: Alert and oriented to person, place, time, and situation this morning. Assessment and Plan of Care: Diabetic ulcer to left heel, with concerns of surrounding cellulitis and i nfection Lactic acidosis Sinus tachycardia Leukocytosis Acute metabolic encephalopathy, unclear cause possibly underlying infectious process secondary to above versus worsening baseline dementia. Resolved. Weakness and inability to ambulate likely secondary to above Hypomagnesemia, resolved Consult placed to infectious disease for diabetic wound care/management of infected diabetic wound Patient reports persistent uncontrolled pain and left heel/foot states shooting pain rated 10 out of 10. Patient started on Neurontin 100 mg 3 times daily and we will evaluate pain management further. Continuation of IV antibiotics with Unasyn 3 g every 6 hours Blood culture showing no growth to date. Wound culture negative. Continue Wound care and order placed for air boot/heel protector boot for left foot CT head was negative for acute intercranial process. Fall precautions to remain in place. Continue BuSpar 15 mg daily and Aricept 10 mg nightly. Patient was started on Neurontin 100 mg 3 times daily in addition to [place] 5/325 mg tablets every 4 hours as needed for pain. PT/OT following for evaluation for rehab Consult case management following for assistance with placement in snf facility, discussed case with social work and awaiting PT recommendations. Insulin-dependent diabetes mellitus with hyperglycemia -Continue glycemic protocol with NovoLog sliding scale with Levemir 15 units nightly. -Hemoglobin A1c 8%. CAD with stent Hypertension Hyperlipidemia Paroxysmal atrial fibrillation COPD not in exacerbation -Continue anticoagulation with Coumadin, pharmacy to dose for goal INR of 2-3 (currently supratherapeutic at 3.1 ) atorvastatin 80 mg nightly, clonidine 0.1 mg twice daily, hydralazine 75 mg daily, and metoprolol 50 mg daily. Data and imaging reviewed: Morning labs completed and reviewed. INR supratherapeutic at 3.1. Blood glucose levels have ranged between 112 and 220 over the past 24 hours. Vital signs reviewed. Blood pressure 130/66, heart rate 64, respiratory rate 15, temp 98.4F, and SpO2 of 99% on room air. CODE STATUS: Discussed CODE STATUS with patient's and daughter at bedside patient is a DO NOT RESUSCITATE/DO NOT INTUBATE DVT prophylaxis: Coumadin Anticipated discharge date: Clinical course to determine, likely within the next 24 hours. Awaiting acceptance to facility and placement. Anticipated discharge place: nursing home facility for placement Patient was seen independently by Nurse Practitioner. This document was prepared using [employer] dictation software. Please allow for errors in drum plater while rare they do occur. Terry Dorman NP rendered care for this patient independently, reviewed the findings and plan as documented in the note above. I did not physically speak with or examine the patient on this date. Objective - Vital Signs Vital signs: Vital Signs Temp 98.4 F 02/06/23 07:20 Pulse 64 02/06/23 07:20 Resp 15 02/06/23 07:20 BP 130/66 02/06/23 07:20 Pulse Ox 99 02/06/23 07:20 FiO2 Intake & Output 02/05/23 02/06/23 02/06/23 18:59 06:59 18:59 Intake Total 200 Output Total 950 250 Balance -950 -50 Intake: Oral 200 Output: Urine 950 250 Other: Voiding Method Diaper External Catheter External Catheter Incontinent - Labs CBC & Chem 7: 02/05/23 05:41 02/06/23 06:40 Labs: Abnormal Lab Results - Last 24 Hours (Table) 02/05/23 02/05/23 02/05/23 Range/Units 05:41 05:41 11:32 RBC 2.98 L (4.40-5.60) X 10*6/uL Hgb 8.3 L (13.0-17.0) g/dL Hct 26.9 L (39.6-50.0) % MCHC 30.9 L (32.0-37.0) g/dL RDW 14.8 H (11.5-14.5) % Monocytes # 1.03 H (0.20-1.00) X 10*3/uL Crenated Cell 2+ A PT (10.0-12.5) sec INR (<1.2) BUN/Creatinine Ratio 11.18 L (12.00-20.00) Ratio POC Glucose (mg/dL) 196 H (70-110) mg/dL Calcium 8.4 L (8.7-10.3) mg/dL ALT 7 L (10-49) U/L Alkaline Phosphatase 40 L (41-126) U/L C-Reactive Protein 14.60 H (0.00-0.80) mg/dL Total Protein 5.3 L (6.2-8.2) g/dL Albumin 2.8 L (3.8-4.9) g/dL Albumin/Globulin Ratio 1.12 L (1.60-3.17) Ratio 02/05/23 02/06/23 02/06/23 Range/Units 16:52 05:58 06:40 RBC (4.40-5.60) X 10*6/uL Hgb (13.0-17.0) g/dL Hct (39.6-50.0) % MCHC (32.0-37.0) g/dL RDW (11.5-14.5) % Monocytes # (0.20-1.00) X 10*3/uL Crenated Cell PT 30.6 H (10.0-12.5) sec INR 3.1 H (<1.2) BUN/Creatinine Ratio (12.00-20.00) Ratio POC Glucose (mg/dL) 220 H 113 H (70-110) mg/dL Calcium (8.7-10.3) mg/dL ALT (10-49) U/L Alkaline Phosphatase (41-126) U/L C-Reactive Protein (0.00-0.80) mg/dL Total Protein (6.2-8.2) g/dL Albumin (3.8-4.9) g/dL Albumin/Globulin Ratio (1.60-3.17) Ratio Microbiology - Last 24 Hours (Table) 02/03/23 12:05 Blood Culture - Preliminary Blood 02/03/23 11:50 Blood Culture - Preliminary Blood 02/03/23 19:20 Gram Stain - Final Foot - Left Wound Culture - Final
[2023-02-06 17:07] LABS: Glucose,Whole Blood 200 mg/dL (70-110)
[2023-02-06] MEDS ORDERED: WARFARIN 0.5 MG TAB PO ONE (18:00)
[2023-02-06] MEDS: HYDROcodone/APAP 5-325MG 1 EACH TAB PO PRN ×2 (19:13→23:47)
--- NOTE | 2023-02-06 20:32 | XR ---
EXAMINATION TYPE: XR knee complete RT DATE OF EXAM: 02/06/2023 5:30 PM CLINICAL INDICATION:Male, 78 years old with history of pain COMPARISON: None. TECHNIQUE: XR knee complete RT; examined in Frontal, lateral and oblique projections. FINDINGS: No evidence of any acute osseous pathology, soft tissue swelling, or joint effusion is no adelfo. Tricompartmental osteophyte formation involving the femoral condyles, tibial plateau and patella. Mo derate joint space narrowing most pronounced in the medial aspect. Atherosclerosis of the arterial va sculature. Calcification near the quadriceps insertion onto the patella. IMPRESSION: 1. No acute osseous pathology. 2. Moderate tricompartmental osteoarthritic changes.
[2023-02-06] MEDS: ATORVASTATIN 80 MG TAB PO SCH (20:39)
[2023-02-06] MEDS: DONEPEZIL 10 MG TAB PO SCH (20:39)
[2023-02-06 21:51] LABS: Glucose,Whole Blood 275 mg/dL (70-110)
[2023-02-06] MEDS: INSULIN DETEMIR (LEVEMIR) 100 UNIT/ML SYR SQ SCH (21:51)
[2023-02-06 22:46] LABS: Glucose,Whole Blood 238 mg/dL (70-110)
[2023-02-07] MEDS: AMPICILLIN-SULBACTAM 3 GM in SODIUM CHLORIDE 0.9% 100 ML IVPB SCH ×4 (05:53→23:45)
[2023-02-07] MEDS: HYDROcodone/APAP 5-325MG 1 EACH TAB PO PRN ×3 (05:54→20:56)
[2023-02-07 06:14] LABS: Glucose,Whole Blood 113 mg/dL (70-110)
[2023-02-07] MEDS: INSULIN ASPART (NovoLOG) 100 UNIT/ML VIAL SQ SCH ×4 (06:15→20:42)
[2023-02-07 07:25] LABS: INR 3.1 (<1.2); Prothrombin Time 30.9 sec (10.0-12.5)
[2023-02-07] MEDS: CALCIUM ACETATE 667 MG TAB PO SCH ×3 (10:18→18:01)
[2023-02-07] MEDS: PANTOPRAZOLE 40 MG TABLET PO SCH (10:19)
[2023-02-07] MEDS: hydrALAZINE HCL 25 MG TAB PO SCH (10:19)
[2023-02-07] MEDS: cloNIDine HCL 0.1 MG TAB PO SCH ×2 (10:20→20:42)
[2023-02-07] MEDS: CHOLECALCIFEROL 25 MCG (1000 IU) TABLET PO SCH (10:20)
[2023-02-07] MEDS: METOPROLOL TARTRATE 50 MG TAB PO SCH (10:21)
[2023-02-07] MEDS: amLODIPine 5 MG TAB PO SCH ×2 (10:21→20:42)
[2023-02-07] MEDS: GABAPENTIN 100 MG CAP PO SCH ×3 (10:21→20:42)
[2023-02-07] MEDS: busPIRone HCl 5 MG TAB PO SCH (10:22)
[2023-02-07] MEDS: SIMETHICONE 80 MG CHEWABLE PO SCH ×4 (10:30→20:42)
[2023-02-07 11:31] LABS: Glucose,Whole Blood 229 mg/dL (70-110)
--- NOTE | 2023-02-07 11:37 | P.DS ---
Providers Date of admission: 02/06/23 10:24 Expected date of discharge: 02/07/23 Attending physician: Elsa Jarquin DO Consults: 02/03/23 17:24 Consult Physician Routine Consulting Provider: Andie Jordan Consult Reason/Comments: diabetic foot ulcer with concerns of infection Do you want consulting provider notified?: Yes Primary care physician: [place] Hospital Course: Patient is a very pleasant 78-year-old male with a past medical history of CAD with stent, atrial fibrillation on anticoagulation with Coumadin, hypertension, hyperlipidemia, COPD, insulin-dependent diabetes mellitus, gout, and dementia. He presented to the emergency department with a chief complaint of increased confusion and inability to ambulate. Patient underwent full evaluation in the emergency department. Vital signs upon reviewed. Blood pressure 122/72 heart rate 112 temp 97.6F and SpO2 of 93% on room air. Labs completed and reviewed. CBC showing mild leukocytosis with WBC count of 10.7 and Normocytic anemia with hemoglobin of 9.6 which is stable at baseline level. BMP unremarkable. Glucose slightly elevated at 187. Initial lactate was elevated at 2.1. Magnesium was low at 1.4. Liver profile showing no significant abnormalities with the exception of hypoalbuminemia with albumin of 3.0. Urinalysis was negative for infection. Influenza A, influenza B, RNC, and Covid PCR were all negative. EKG completed showing sinus tachycardia at 108 bpm. X-ray left foot completed showing no definitive evidence for osseous erosion revealing soft tissue edema with calcaneal plantar spurring and calcaneal achilles enthesophyte are present. Patient was started on IV antibiotics of vancomycin and Unasyn and being admitted under our services with consultation to infectious disease and wound care. ID consulted, WCx and BCx negative, continued on Unasyn, discussed with Dr. Jordan recommended 7 days of Augmentin on discharge. [place] and Gabapentin added for better pain control. PT and OT recommended SNF but patient prefers to go home. 1/3 Patient was seen and examined. He reports well controlled pain in his left leg. Would prefer to go home. Pertinent studies include Brain CT, Foot XR, CXR, Knee XR General: Nontoxic, no distress and appears stated age. Derm: Skin warm and dry, normal coloration for ethnicity. Head: Atraumatic, normocephalic and symmetric. Eyes: EOMs intact, no lid lag, and anicteric sclera Cardiovascular: RRR with normal S1S2, no murmur Lungs: Lungs CTA bilaterally, no rhonchi, no rales, no wheezing, and no accessory muscle usage. Ext: No gross muscle atrophy, no edema, no contractures. Movement and sensation intact. Patient with bilateral lower extremity redness with large open ulcer/wound to left heel seeping clear serosanguineous drainage. Psych: Alert and oriented to person, place, time, and situation this morning. Discharge Diagnosis: Diabetic ulcer to left heel, with concerns of surrounding cellulitis and infec tion Acute metabolic encephalopathy, unclear cause possibly underlying infectious process secondary to above versus worsening baseline dementia. Weakness and inability to ambulate likely secondary to above Insulin-dependent diabetes mellitus with hyperglycemia CAD with stent Hypertension Hyperlipidemia Paroxysmal atrial fibrillation COPD not in exacerbation Resolved: HypoMag, sinus tachycardia, leukocytosis, acute metabolic encephalopathy This complex discharge took 35 minutes to complete. Patient Condition at Discharge: Stable Plan - Discharge Summary New Discharge Prescriptions: New HYDROcodone/APAP 5-325MG [[place] 5-325] 1 each PO Q4HR PRN #18 tab PRN Reason: Moderate Pain (Scale 4 To 6) Amoxic-Pot Clav 875-125Mg [Augmentin 875-125] 1 tab PO Q12HR 7 Days #14 tab Gabapentin [Neurontin] 100 mg PO TID #30 cap Continue Atorvastatin [Lipitor] 80 mg PO HS busPIRone HCL 15 mg PO DAILY amLODIPine BESYLATE [Norvasc] 5 mg PO BID cloNIDine HCL [Catapres] 0.1 mg PO BID Loratadine 10 mg PO DAILY Calcium Acetate [PhosLo] 667 mg PO TID-W/MEALS tab Acetaminophen Tab [Tylenol] 650 mg PO Q4H PRN PRN Reason: Fever And/ Or Pain Metoprolol Tartrate [Lopressor] 50 mg PO DAILY hydrALAZINE HCL [Apresoline] 75 mg PO DAILY Insulin Detemir (Levemir) [Levemir] 15 unit SQ HS Donepezil [Aricept] 10 mg PO HS Cholecalciferol (Vitamin D3) [Vitamin D3 (3000 Iu)] 75 mcg PO DAILY Furosemide [Lasix] 40 mg PO DAILY #30 tablet Simethicone Chew [Mylicon Chew] 40 mg PO QID 5 Days tab Pantoprazole [Protonix] 40 mg PO DAILY #30 tab INSULIN ASPART (NovoLOG) [NovoLOG (formulary)] See Protocol SQ ACHS Warfarin [Coumadin] 3 mg PO DAILY@1700 Discharge Medication List Atorvastatin [Lipitor] 80 mg PO HS 01/14/16 [History] Loratadine 10 mg PO DAILY 01/14/16 [History] amLODIPine BESYLATE [Norvasc] 5 mg PO BID 01/14/16 [History] busPIRone HCL 15 mg PO DAILY 01/14/16 [History] cloNIDine HCL [Catapres] 0.1 mg PO BID 01/14/16 [History] Cholecalciferol (Vitamin D3) [Vitamin D3 (3000 Iu)] 75 mcg PO DAILY 12/18/22 [History] Donepezil [Aricept] 10 mg PO HS 12/18/22 [History] Calcium Acetate [PhosLo] 667 mg PO TID-W/MEALS tab 12/29/22 [Rx] Furosemide [Lasix] 40 mg PO DAILY #30 tablet 12/29/22 [Rx] Pantoprazole [Protonix] 40 mg PO DAILY #30 tab 12/29/22 [Rx] Simethicone Chew [Mylicon Chew] 40 mg PO QID 5 Days tab 12/29/22 [Rx] Acetaminophen Tab [Tylenol] 650 mg PO Q4H PRN 02/03/23 [History] INSULIN ASPART (NovoLOG) [NovoLOG (formulary)] See Protocol SQ ACHS 02/03/23 [History] Insulin Detemir (Levemir) [Levemir] 15 unit SQ HS 02/03/23 [History] Metoprolol Tartrate [Lopressor] 50 mg PO DAILY 02/03/23 [History] Warfarin [Coumadin] 3 mg PO DAILY@1700 02/03/23 [History] hydrALAZINE HCL [Apresoline] 75 mg PO DAILY 02/03/23 [History] Amoxic-Pot Clav 875-125Mg [Augmentin 875-125] 1 tab PO Q12HR 7 Days #14 tab 02/07/23 [Rx] Gabapentin [Neurontin] 100 mg PO TID #30 cap 02/07/23 [Rx] HYDROcodone/APAP 5-325MG [[place] 5-325] 1 each PO Q4HR PRN #18 tab 02/07/23 [Rx] Follow up Appointment(s)/Referral(s): Austyn Stevens MD [Primary Care Provider] - 1-2 days Andie Jordan MD [STAFF PHYSICIAN] - 1 Week Discharge Disposition: HOME SELF-CARE
--- NOTE | 2023-02-07 12:05 | P.PN ---
Subjective Progress Note Date: 02/07/23 Principal diagnosis: Reason for follow-up is left heel ulcer and cellulitis Patient is a 78-year-old male past medical history significant for diabetes mellitus hypertension hyperlipidemia NM COPD has been brought to the hospital for evaluation of weakness and some mental status changes noticed to have a left heel ulcer and concerning for cellulitis prompting this infectious disease consultation did have a negative UA chest x-ray was negative for any pneumonia On today's evaluation that is 02/07/2023, the patient denies having any fever or any chills, the patient is breathing comfortably on room air, the patient denies chest pain shortness of the cough no nausea vomiting no abdominal pain, denies any worsening pain to the left heel wound area Patient did have white count of 9.21 as of 02/05/2023 and a creatinine of 1.01 as of yesterday culture has been negative Objective - Vital Signs Vital signs: Vital Signs Temp 98.2 F 02/07/23 07:00 Pulse 73 02/07/23 07:00 Resp 18 02/07/23 07:00 BP 146/62 02/07/23 07:00 Pulse Ox 98 02/07/23 07:00 FiO2 Intake & Output 02/06/23 02/07/23 02/07/23 18:59 06:59 18:59 Intake Total 340 1050 120 Output Total 800 700 Balance -460 1050 -580 Weight 88.451 kg Intake: Oral 340 1050 120 Output: Urine 800 700 Other: Voiding Method External Catheter External Catheter - Exam GENERAL DESCRIPTION: Middle-age male up in the chair in no distress RESPIRATORY SYSTEM: Unlabored breathing , decreased breath sounds at bases HEART: S1 S2 regular rate and rhythm , ABDOMEN: Soft , no tenderness EXTREMITIES: Left heel is currently dressed - Labs CBC & Chem 7: 02/05/23 05:41 02/06/23 06:40 Labs: Abnormal Lab Results - Last 24 Hours (Table) 02/06/23 02/06/23 02/06/23 Range/Units 12:03 17:05 21:49 PT (10.0-12.5) sec INR (<1.2) POC Glucose (mg/dL) 149 H 200 H 275 H (70-110) mg/dL 02/06/23 02/07/23 02/07/23 Range/Units 22:44 06:01 06:12 PT 30.9 H (10.0-12.5) sec INR 3.1 H (<1.2) POC Glucose (mg/dL) 238 H 113 H (70-110) mg/dL Microbiology - Last 24 Hours (Table) 02/03/23 12:05 Blood Culture - Preliminary Blood 02/03/23 11:50 Blood Culture - Preliminary Blood Assessment and Plan (1) Stage II pressure ulcer of left heel Current Visit: Yes Status: Acute Code(s): L89.622 - PRESSURE ULCER OF LEFT HEEL, STAGE 2 SNOMED Code(s): 13679068740031 (2) Diabetic foot infection Current Visit: Yes Status: Acute Code(s): E11.628 - TYPE 2 DIABETES MELLITUS WITH OTHER SKIN COMPLICATIONS; L08.9 - LOCAL INFECTION OF THE SKIN AND SUBCUTANEOUS TISSUE, UNSP SNOMED Code(s): 974752927 (3) Diabetic foot ulcer Current Visit: Yes Status: Acute Code(s): E11.621 - TYPE 2 DIABETES MELLITUS WITH FOOT ULCER; L97.509 - NON-PRESSURE CHRONIC ULCER OTH PRT UNSP FOOT W UNSP SEVERITY SNOMED Code(s): 612604022 (4) Ulcer of left foot Current Visit: Yes Status: Acute Code(s): L97.529 - NON-PRESSURE CHRONIC ULCER OTH PRT LEFT FOOT W UNSP SEVERITY SNOMED Code(s): 133684245 Plan: 1patient presented to hospital with weakness some mental status changes concerning for possible UTI however the patient did have a negative UA patient was noticed to have left heel stage II pressure ulcer and concern for possible cellulitis likely from gram-positive skin [place] no evidence of infection and redness of the body he did have a congested cough and some coarse breath sounds underlying pulmonary source not entirely excluded 2chest x-ray was negative for acute infiltrate. 3blood culture as well as local cultures are negative. 4with cultures negative Unasyn can be switched over to oral Augmentin x 7 days on discharge local wound care to continue with Aquacel silver dressing keep the area of the pressure discussed with the medical team working on discharge Dictation was produced using [employer] dictation software. please excuse any grammatical, word or spelling errors. Time with Patient: Less than 30
[2023-02-07] MEDS ORDERED: VANCOMYCIN TROUGH DUE 1 EACH MISC MISCELLANE ONE (13:00)
[2023-02-07 17:48] LABS: Glucose,Whole Blood 182 mg/dL (70-110)
[2023-02-07] MEDS ORDERED: WARFARIN 2 MG TAB PO ONE (18:00)
[2023-02-07 20:42] LABS: Glucose,Whole Blood 180 mg/dL (70-110)
[2023-02-07] MEDS: ATORVASTATIN 80 MG TAB PO SCH (20:42)
[2023-02-07] MEDS: INSULIN DETEMIR (LEVEMIR) 100 UNIT/ML SYR SQ SCH (20:43)
[2023-02-07] MEDS: DONEPEZIL 10 MG TAB PO SCH (20:52)
[2023-02-08 03:16] VITALS: RESP 16
[2023-02-08 05:37] LABS: INR 3.2 (<1.2)
[2023-02-08] MEDS: AMPICILLIN-SULBACTAM 3 GM in SODIUM CHLORIDE 0.9% 100 ML IVPB SCH ×3 (06:29→18:02)
[2023-02-08 06:30] LABS: Glucose,Whole Blood 94 mg/dL (70-110)
[2023-02-08] MEDS: INSULIN ASPART (NovoLOG) 100 UNIT/ML VIAL SQ SCH ×4 (06:30→21:06)
[2023-02-08] MEDS: CALCIUM ACETATE 667 MG TAB PO SCH ×3 (06:35→18:02)
[2023-02-08] MEDS: CHOLECALCIFEROL 25 MCG (1000 IU) TABLET PO SCH (09:08)
[2023-02-08] MEDS: PANTOPRAZOLE 40 MG TABLET PO SCH (09:08)
[2023-02-08] MEDS: amLODIPine 5 MG TAB PO SCH ×2 (09:08→21:06)
[2023-02-08] MEDS: METOPROLOL TARTRATE 50 MG TAB PO SCH (09:08)
[2023-02-08] MEDS: HYDROcodone/APAP 5-325MG 1 EACH TAB PO PRN (09:08)
[2023-02-08] MEDS: hydrALAZINE HCL 25 MG TAB PO SCH (09:08)
[2023-02-08] MEDS: GABAPENTIN 100 MG CAP PO SCH ×3 (09:08→21:07)
[2023-02-08] MEDS: busPIRone HCl 5 MG TAB PO SCH (09:08)
[2023-02-08] MEDS: SIMETHICONE 80 MG CHEWABLE PO SCH ×4 (09:09→21:07)
[2023-02-08] MEDS: cloNIDine HCL 0.1 MG TAB PO SCH ×2 (09:09→21:06)
--- NOTE | 2023-02-08 12:02 | P.PN ---
Subjective Progress Note Date: 02/08/23 Patient is a very pleasant 78-year-old male with a past medical history of CAD with stent, atrial fibrillation on anticoagulation with Coumadin, hypertension, hyperlipidemia, COPD, insulin-dependent diabetes mellitus, gout, and dementia. He presented to the emergency department with a chief complaint of increased confusion and inability to ambulate. Patient underwent full evaluation in the emergency department. Vital signs upon reviewed. Blood pressure 122/72 heart rate 112 temp 97.6F and SpO2 of 93% on room air. Labs completed and reviewed. CBC showing mild leukocytosis with WBC count of 10.7 and Normocytic anemia with hemoglobin of 9.6 which is stable at baseline level. BMP unremarkable. Glucose slightly elevated at 187. Initial lactate was elevated at 2.1. Magnesium was low at 1.4. Liver profile showing no significant abnormalities with the exception of hypoalbuminemia with albumin of 3.0. Urinalysis was negative for infection. Influenza A, influenza B, RNC, and Covid PCR were all negative. EKG completed showing sinus tachycardia at 108 bpm. X-ray left foot completed show ing no definitive evidence for osseous erosion revealing soft tissue edema with calcaneal plantar spurring and calcaneal achilles enthesophyte are present. Patient was started on IV antibiotics of vancomycin and Unasyn and being admitted under our services with consultation to infectious disease and wound care. ID consulted, WCx and BCx negative, continued on Unasyn, discussed with Dr. Jordan recommended 7 days of Augmentin on discharge. [place] and Gabapentin added for better pain control. PT and OT recommended SNF but patient prefers to go home. 02/07 Patient was seen and examined. He reports well controlled pain in his left leg. Would prefer to go home. 02/08 Patient was seen and examined. Decision made for SNF. Plans for discharge tomorrow. Reports increased pain in the LLE, Gabapentin increased to 200 mg PO TID. Reports some pain in both of his wrists, Uric acid ordered. Pertinent studies include Brain CT, Foot XR, CXR, Knee XR General: Nontoxic, no distress and appears stated age. Derm: Skin warm and dry, normal coloration for ethnicity. Head: Atraumatic, normocephalic and symmetric. Eyes: EOMs intact, no lid lag, and anicteric sclera Cardiovascular: RRR with normal S1S2, no murmur Lungs: Lungs CTA bilaterally, no rhonchi, no rales, no wheezing, and no accessory muscle usage. Ext: No gross muscle atrophy, no edema, no contractures. Movement and sensation intact. Patient with bilateral lower extremity redness with large open ulcer/wound to left heel seeping clear serosanguineous drainage. Psych: Alert and oriented to person, place, time, and situation this morning. Diabetic ulcer to left heel, with concerns of surrounding cellulitis and infection Acute metabolic encephalopathy, unclear cause possibly underlying infectious process secondary to above versus worsening baseline dementia. Weakness and inability to ambulate likely secondary to above Insulin-dependent diabetes mellitus with hyperglycemia CAD with stent Hypertension Hyperlipidemia Paroxysmal atrial fibrillation COPD not in exacerbation Resolved: HypoMag, sinus tachycardia, leukocytosis, acute metabolic encephalopathy Dr. Jordan recommended 7 days of Augmentin on discharge. Uric acid ordered to rule out acute gout flair. PT and OT on board, plans for discharge to SNF tomorrow. Gabapentin increased to 200 mg PO TID for better pain control. Objective - Vital Signs Vital signs: Vital Signs Temp 97.7 F 02/08/23 07:00 Pulse 70 02/08/23 07:00 Resp 16 02/08/23 07:00 BP 147/60 02/08/23 07:00 Pulse Ox 95 02/08/23 07:00 FiO2 Intake & Output 02/07/23 02/08/23 02/08/23 18:59 06:59 18:59 Intake Total 240 240 Output Total 700 Balance -460 240 Intake: Oral 240 240 Output: Urine 700 Other: Voiding Method External Catheter External Catheter External Catheter # Voids 1 1 - Labs CBC & Chem 7: 02/05/23 05:41 02/06/23 06:40 Labs: Abnormal Lab Results - Last 24 Hours (Table) 02/07/23 02/07/23 02/08/23 Range/Units 17:39 20:41 04:56 PT 31.0 H (10.0-12.5) sec INR 3.2 H (<1.2) POC Glucose (mg/dL) 182 H 180 H (70-110) mg/dL
[2023-02-08 12:22] LABS: Glucose,Whole Blood 130 mg/dL (70-110)
--- NOTE | 2023-02-08 17:43 | P.PN ---
Subjective Progress Note Date: 02/08/23 Principal diagnosis: Reason for follow-up is left heel ulcer and cellulitis Patient is a 78-year-old male past medical history significant for diabetes mellitus hypertension hyperlipidemia [place] COPD has been brought to the hospital for evaluation of weakness and some mental status changes noticed to have a left heel ulcer and concerning for cellulitis prompting this infectious disease consultation did have a negative UA chest x-ray was negative for any pneumonia On today's evaluation that is 02/08/2023, the patient remains to be afebrile, the patient is breathing comfortably on room air patient denies having any chest pain shortness of breath or cough no nausea vomiting and no diarrhea the patient denies pain to the left heel wound area. Patient did have INR of 3.2 no CBC was done today Objective - Vital Signs Vital signs: Vital Signs Temp 97.7 F 02/08/23 07:00 Pulse 70 02/08/23 07:00 Resp 16 02/08/23 07:00 BP 147/60 02/08/23 07:00 Pulse Ox 95 02/08/23 07:00 FiO2 Intake & Output 02/07/23 02/08/23 02/08/23 18:59 06:59 18:59 Intake Total 240 240 Output Total 700 Balance -460 240 Intake: Oral 240 240 Output: Urine 700 Other: Voiding Method External Catheter External Catheter External Catheter # Voids 1 1 - Exam GENERAL DESCRIPTION: Middle-age male up in the chair in no distress RESPIRATORY SYSTEM: Unlabored breathing , decreased breath sounds at bases HEART: S1 S2 regular rate and rhythm , ABDOMEN: Soft , no tenderness EXTREMITIES: Left heel is currently dressed - Labs CBC & Chem 7: 02/05/23 05:41 02/06/23 06:40 Labs: Abnormal Lab Results - Last 24 Hours (Table) 02/07/23 02/07/23 02/08/23 Range/Units 17:39 20:41 04:56 PT 31.0 H (10.0-12.5) sec INR 3.2 H (<1.2) POC Glucose (mg/dL) 182 H 180 H (70-110) mg/dL 02/08/23 Range/Units 12:21 PT (10.0-12.5) sec INR (<1.2) POC Glucose (mg/dL) 130 H (70-110) mg/dL Assessment and Plan (1) Stage II pressure ulcer of left heel Current Visit: Yes Status: Acute Code(s): L89.622 - PRESSURE ULCER OF LEFT HEEL, STAGE 2 SNOMED Code(s): 59900613110737 (2) Diabetic foot infection Current Visit: Yes Status: Acute Code(s): E11.628 - TYPE 2 DIABETES MELLITUS WITH OTHER SKIN COMPLICATIONS; L08.9 - LOCAL INFECTION OF THE SKIN AND SUBCUTANEOUS TISSUE, UNSP SNOMED Code(s): 568756397 (3) Diabetic foot ulcer Current Visit: Yes Status: Acute Code(s): E11.621 - TYPE 2 DIABETES MELLITUS WITH FOOT ULCER; L97.509 - NON-PRESSURE CHRONIC ULCER OTH PRT UNSP FOOT W UNSP SEVERITY SNOMED Code(s): 866157939 (4) Ulcer of left foot Current Visit: Yes Status: Acute Code(s): L97.529 - NON-PRESSURE CHRONIC ULCER OTH PRT LEFT FOOT W UNSP SEVERITY SNOMED Code(s): 321201490 Plan: 1patient presented to hospital with weakness some mental status changes concerning for possible UTI however the patient did have a negative UA patient was noticed to have left heel stage II pressure ulcer and concern for possible cellulitis likely from gram-positive skin [place] no evidence of infection and redness of the body he did have a congested cough and some coarse breath sounds underlying pulmonary source not entirely excluded 2chest x-ray was negative for acute infiltrate. 3blood culture as well as local cultures are negative. 4patient currently covered with the Unasyn transition to oral Augmentin on discharge short course INR need to be monitored closely while on antibiotics local wound care with an Aquacel dressing and keep the area of the pressure Dictation was produced using [employer] dictation software. please excuse any grammatical, word or spelling errors.
[2023-02-08 17:54] LABS: Glucose,Whole Blood 201 mg/dL (70-110)
[2023-02-08] MEDS ORDERED: WARFARIN 0.5 MG TAB PO ONE (18:00)
[2023-02-08 20:20] LABS: Glucose,Whole Blood 183 mg/dL (70-110)
[2023-02-08] MEDS: ATORVASTATIN 80 MG TAB PO SCH (21:06)
[2023-02-08] MEDS: DONEPEZIL 10 MG TAB PO SCH (21:06)
[2023-02-08] MEDS: INSULIN DETEMIR (LEVEMIR) 100 UNIT/ML SYR SQ SCH (21:06)
[2023-02-09] MEDS: AMPICILLIN-SULBACTAM 3 GM in SODIUM CHLORIDE 0.9% 100 ML IVPB SCH ×3 (01:27→12:50)
[2023-02-09] MEDS: HYDROcodone/APAP 5-325MG 1 EACH TAB PO PRN (04:05)
[2023-02-09 06:32] LABS: Glucose,Whole Blood 126 mg/dL (70-110)
[2023-02-09] MEDS: INSULIN ASPART (NovoLOG) 100 UNIT/ML VIAL SQ SCH ×2 (06:32→12:53)
[2023-02-09 06:54] LABS: INR 3.4 (<1.2)
[2023-02-09] MEDS: CHOLECALCIFEROL 25 MCG (1000 IU) TABLET PO SCH (08:55)
[2023-02-09] MEDS: PANTOPRAZOLE 40 MG TABLET PO SCH (08:55)
[2023-02-09] MEDS: CALCIUM ACETATE 667 MG TAB PO SCH ×2 (08:55→12:50)
[2023-02-09] MEDS: busPIRone HCl 5 MG TAB PO SCH (08:56)
[2023-02-09] MEDS: hydrALAZINE HCL 25 MG TAB PO SCH (08:56)
[2023-02-09] MEDS: SIMETHICONE 80 MG CHEWABLE PO SCH ×2 (08:56→12:51)
[2023-02-09] MEDS: GABAPENTIN 100 MG CAP PO SCH (08:57)
[2023-02-09] MEDS: amLODIPine 5 MG TAB PO SCH (08:57)
[2023-02-09] MEDS: METOPROLOL TARTRATE 50 MG TAB PO SCH (08:57)
[2023-02-09 09:30] VITALS: BP 132/57; PULSE 74; TEMP 98.3
--- NOTE | 2023-02-09 10:05 | P.DS ---
Providers Date of admission: 02/06/23 10:24 Expected date of discharge: 02/09/23 Attending physician: Elsa Jarquin DO Consults: 02/03/23 17:24 Consult Physician Routine Consulting Provider: Andie Jordan Consult Reason/Comments: diabetic foot ulcer with concerns of infection Do you want consulting provider notified?: Yes Primary care physician: [facility] Course: Patient is a very pleasant 78-year-old male with a past medical history of CAD with stent, atrial fibrillation on anticoagulation with Coumadin, hypertension, hyperlipidemia, COPD, insulin-dependent diabetes mellitus, gout, and dementia. He presented to the emergency department with a chief complaint of increased confusion and inability to ambulate. Patient underwent full evaluation in the emergency department. Vital signs upon reviewed. Blood pressure 122/72 heart rate 112 temp 97.6F and SpO2 of 93% on room air. Labs completed and reviewed. CBC showing mild leukocytosis with WBC count of 10.7 and Normocytic anemia with hemoglobin of 9.6 which is stable at baseline level. BMP unremarkable. Glucose slightly elevated at 187. Initial lactate was elevated at 2.1. Magnesium was low at 1.4. Liver profile showing no significant abnormalities with the exception of hypoalbuminemia with albumin of 3.0. Urinalysis was negative for infection. Influenza A, influenza B, RNC, and Covid PCR were all negative. EKG completed showing sinus tachycardia at 108 bpm. X-ray left foot completed showing no definitive evidence for osseous erosion revealing soft tissue edema with calcaneal plantar spurring and calcaneal achilles enthesophyte are present. Patient was started on IV antibiotics of vancomycin and Unasyn and being admitted under our services with consultation to infectious disease and wound care. ID consulted, WCx and BCx negative, continued on Unasyn, discussed with Dr. Jordan recommended 7 days of Augmentin on discharge. [place] and Gabapentin added for better pain control. PT and OT recommended SNF but patient prefers to go home. 02/07 Patient was seen and examined. He reports well controlled pain in his left leg. Would prefer to go home. 02/08 Discharge held with plans for going to SNF. 02/09 Patient was seen and examined. He reports pain in both of his hands. History of gout. Uric acid is negative. Regardless, we will trial 5 days of Prednisone to help with his pain. Continue Gabapentin 200 mg PO TID and [place] 7.5 Q6H PRN for breaththrough pain. Pertinent studies include Brain CT, Foot XR, CXR, Knee XR General: Nontoxic, no distress and appears stated age. Derm: Skin warm and dry, normal coloration for ethnicity. Head: Atraumatic, normocephalic and symmetric. Eyes: EOMs intact, no lid lag, and anicteric sclera Cardiovascular: RRR with normal S1S2, no murmur Lungs: Lungs CTA bilaterally, no rhonchi, no rales, no wheezing, and no accessory muscle usage. Ext: No gross muscle atrophy, no edema, no contractures. Movement and sensation intact. Patient with bilateral lower extremity redness with large open ulcer/wound to left heel seeping clear serosanguineous drainage. Psych: Alert and oriented to person, place, time, and situation this morning. Discharge Diagnosis: Diabetic ulcer to left heel, with concerns of surrounding cellulitis and infection Acute metabolic encephalopathy, unclear cause possibly underlying infectious process secondary to above versus worsening baseline dementia. Weakness and inability to ambulate likely secondary to above Insulin-dependent diabetes mellitus with hyperglycemia CAD with stent Hypertension Hyperlipidemia Paroxysmal atrial fibrillation COPD not in exacerbation Resolved: HypoMag, sinus tachycardia, leukocytosis, acute metabolic encephalopathy This complex discharge took 35 minutes to complete. Patient Condition at Discharge: Stable Plan - Discharge Summary New Discharge Prescriptions: New predniSONE [Deltasone] 40 mg PO DAILY #10 tab Amoxic-Pot Clav 875-125Mg [Augmentin 875-125] 1 tab PO Q12HR 7 Days #14 tab Gabapentin [Neurontin] 200 mg PO TID #9 cap HYDROcodone/APAP 10-325MG [[place] 10-325] 1 tab PO Q6HR PRN 3 Days #12 tab PRN Reason: Severe Breakthrough Pain Continue Atorvastatin [Lipitor] 80 mg PO HS busPIRone HCL 15 mg PO DAILY amLODIPine BESYLATE [Norvasc] 5 mg PO BID cloNIDine HCL [Catapres] 0.1 mg PO BID Loratadine 10 mg PO DAILY Calcium Acetate [PhosLo] 667 mg PO TID-W/MEALS tab Acetaminophen Tab [Tylenol] 650 mg PO Q4H PRN PRN Reason: Fever And/ Or Pain Metoprolol Tartrate [Lopressor] 50 mg PO DAILY hydrALAZINE HCL [Apresoline] 75 mg PO DAILY Insulin Detemir (Levemir) [Levemir] 15 unit SQ HS Donepezil [Aricept] 10 mg PO HS Cholecalciferol (Vitamin D3) [Vitamin D3 (3000 Iu)] 75 mcg PO DAILY Furosemide [Lasix] 40 mg PO DAILY #30 tablet Simethicone Chew [Mylicon Chew] 40 mg PO QID 5 Days tab Pantoprazole [Protonix] 40 mg PO DAILY #30 tab INSULIN ASPART (NovoLOG) [NovoLOG (formulary)] See Protocol SQ ACHS Warfarin [Coumadin] 3 mg PO DAILY@1700 Discharge Medication List Atorvastatin [Lipitor] 80 mg PO HS 01/14/16 [History] Loratadine 10 mg PO DAILY 01/14/16 [History] amLODIPine BESYLATE [Norvasc] 5 mg PO BID 01/14/16 [History] busPIRone HCL 15 mg PO DAILY 01/14/16 [History] cloNIDine HCL [Catapres] 0.1 mg PO BID 01/14/16 [History] Cholecalciferol (Vitamin D3) [Vitamin D3 (3000 Iu)] 75 mcg PO DAILY 12/18/22 [History] Donepezil [Aricept] 10 mg PO HS 12/18/22 [History] Calcium Acetate [PhosLo] 667 mg PO TID-W/MEALS tab 12/29/22 [Rx] Furosemide [Lasix] 40 mg PO DAILY #30 tablet 12/29/22 [Rx] Pantoprazole [Protonix] 40 mg PO DAILY #30 tab 12/29/22 [Rx] Simethicone Chew [Mylicon Chew] 40 mg PO QID 5 Days tab 12/29/22 [Rx] Acetaminophen Tab [Tylenol] 650 mg PO Q4H PRN 02/03/23 [History] INSULIN ASPART (NovoLOG) [NovoLOG (formulary)] See Protocol SQ ACHS 02/03/23 [History] Insulin Detemir (Levemir) [Levemir] 15 unit SQ HS 02/03/23 [History] Metoprolol Tartrate [Lopressor] 50 mg PO DAILY 02/03/23 [History] Warfarin [Coumadin] 3 mg PO DAILY@1700 02/03/23 [History] hydrALAZINE HCL [Apresoline] 75 mg PO DAILY 02/03/23 [History] Amoxic-Pot Clav 875-125Mg [Augmentin 875-125] 1 tab PO Q12HR 7 Days #14 tab 02/07/23 [Rx] Gabapentin [Neurontin] 200 mg PO TID #9 cap 02/09/23 [Rx] HYDROcodone/APAP 10-325MG [[place] 10-325] 1 tab PO Q6HR PRN 3 Days #12 tab 02/09/23 [Rx] predniSONE [Deltasone] 40 mg PO DAILY #10 tab 02/09/23 [Rx] Follow up Appointment(s)/Referral(s): Austyn Stevens MD [Primary Care Provider] - 1-2 days nAdie Jordan MD [STAFF PHYSICIAN] - 1 Week Discharge Disposition: TRANSFER TO SNF/ECF
[2023-02-09] MEDS: cloNIDine HCL 0.1 MG TAB PO SCH (10:11)
[2023-02-09 12:57] LABS: Glucose,Whole Blood 111 mg/dL (70-110)
--- NOTE | 2023-02-09 16:16 | P.PN ---
Subjective Progress Note Date: 02/09/23 Principal diagnosis: Reason for follow-up is left heel ulcer and cellulitis Patient is a 78-year-old male past medical history significant for diabetes mellitus hypertension hyperlipidemia [place] COPD has been brought to the hospital for evaluation of weakness and some mental status changes noticed to have a left heel ulcer and concerning for cellulitis prompting this infectious disease consultation did have a negative UA chest x-ray was negative for any pneumonia On today's evaluation that is 02/09/2023, the patient continues to be afebrile the patient is breathing comfortably on room air, the patient denies any chest pain shortness of breath or cough no abdominal pain, no diarrhea the patient denies any worsening pain to the left heel has been complaining some pain to the right wrist area with the patient has IV but is no redness No new labs has been obtained today, INR is 3.4 Objective - Vital Signs Vital signs: Vital Signs Temp 98.3 F 02/09/23 08:00 Pulse 74 02/09/23 08:00 Resp 16 02/09/23 08:00 BP 132/57 02/09/23 08:00 Pulse Ox 95 02/09/23 08:00 FiO2 Intake & Output 02/08/23 02/09/23 02/09/23 18:59 06:59 18:59 Intake Total 340 Output Total 1425 400 Balance 340 -1425 -400 Intake: Intake, IV Titration 100 Amount Ampicillin-Sulbactam 3 gm 100 In Sodium Chloride 0.9% 100 ml @ 200 mls/hr IVPB Q6HR [facility] Rx#:[id number] Oral 240 Output: Urine 1425 400 Other: Voiding Method External Catheter External Catheter External Catheter # Voids 1 1 - Exam GENERAL DESCRIPTION: Middle-age male up in the chair in no distress RESPIRATORY SYSTEM: Unlabored breathing , decreased breath sounds at bases HEART: S1 S2 regular rate and rhythm , ABDOMEN: Soft , no tenderness EXTREMITIES: Left heel is currently dressed - Labs CBC & Chem 7: 02/05/23 05:41 02/06/23 06:40 Labs: Abnormal Lab Results - Last 24 Hours (Table) 02/05/23 02/08/23 02/08/23 Range/Units 05:41 12:21 17:52 PT (10.0-12.5) sec INR (<1.2) POC Glucose (mg/dL) 130 H 201 H (70-110) mg/dL Procalcitonin 0.46 H (0.02-0.09) ng/mL 02/08/23 02/09/23 02/09/23 Range/Units 20:18 06:01 06:29 PT 33.0 H (10.0-12.5) sec INR 3.4 H (<1.2) POC Glucose (mg/dL) 183 H 126 H (70-110) mg/dL Procalcitonin (0.02-0.09) ng/mL Microbiology - Last 24 Hours (Table) 02/03/23 12:05 Blood Culture - Final Blood 02/03/23 11:50 Blood Culture - Final Blood 02/03/23 19:20 Anaerobic Culture - Final Foot - Left Assessment and Plan (1) Stage II pressure ulcer of left heel Status: Acute Code(s): L89.622 - PRESSURE ULCER OF LEFT HEEL, STAGE 2 SNOMED Code(s): 82710588425896 (2) Diabetic foot infection Status: Acute Code(s): E11.628 - TYPE 2 DIABETES MELLITUS WITH OTHER SKIN COMPLICATIONS; L08.9 - LOCAL INFECTION OF THE SKIN AND SUBCUTANEOUS TISSUE, UNSP SNOMED Code(s): 577901423 (3) Diabetic foot ulcer Status: Acute Code(s): E11.621 - TYPE 2 DIABETES MELLITUS WITH FOOT ULCER; L97.509 - NON-PRESSURE CHRONIC ULCER OTH PRT UNSP FOOT W UNSP SEVERITY SNOMED Code(s): 953963274 (4) Ulcer of left foot Status: Acute Code(s): L97.529 - NON-PRESSURE CHRONIC ULCER OTH PRT LEFT FOOT W UNSP SEVERITY SNOMED Code(s): 260717999 Plan: 1patient presented to hospital with weakness some mental status changes concerning for possible UTI however the patient did have a negative UA patient was noticed to have left heel stage II pressure ulcer and concern for possible cellulitis likely from gram-positive skin [place] no evidence of infection and redness of the body he did have a congested cough and some coarse breath sounds underlying pulmonary source not entirely excluded 2chest x-ray was negative for acute infiltrate. 3blood culture as well as local cultures are negative. 4patient currently waiting for placement, to continue with Unasyn will finish therapy with oral Augmentin local wound care with Aquacel silver dressing and keep the area of the pressure Dictation was produced using [employer] dictation software. please excuse any grammatical, word or spelling errors. Time with Patient: Less than 30
[2023-02-09] MEDS ORDERED: WARFARIN 0.5 MG TAB PO ONE (18:00)
== END 2023-02-09 15:52 | DRG 637 ==
LOC: EC 08:58 → 6NMEDSUR 16:00 → OBSVTOIN 02-06 10:24 → 6NMEDSUR 02-06 22:42
PROVIDERS: ADMIT Internal Medicine; ATTEND Internal Medicine
DX: E11.621 Type 2 diabetes mellitus with foot ulcer (principal); G93.41 Metabolic encephalopathy; L03.116 Cellulitis of left lower limb; E11.628 Type 2 diabetes mellitus with other skin complications; E11.65 Type 2 diabetes mellitus with hyperglycemia; E78.5 Hyperlipidemia, unspecified; E88.09 Other disorders of plasma-protein metabolism, not elsewhere classified; F03.90 Unspecified dementia, unspecified severity, without behavioral disturbance, psychotic disturbance, mood disturbance, and anxiety; M10.9 Gout, unspecified; I10 Essential (primary) hypertension; I25.10 Atherosclerotic heart disease of native coronary artery without angina pectoris; I25.2 Old myocardial infarction; I48.0 Paroxysmal atrial fibrillation; J44.9 Chronic obstructive pulmonary disease, unspecified; L89.622 Pressure ulcer of left heel, stage 2; L97.529 Non-pressure chronic ulcer of other part of left foot with unspecified severity; N17.9 Acute kidney failure, unspecified; R32 Unspecified urinary incontinence; E83.42 Hypomagnesemia; Z79.01 Long term (current) use of anticoagulants; Z79.4 Long term (current) use of insulin; Z79.899 Other long term (current) drug therapy; Z95.5 Presence of coronary angioplasty implant and graft; Z11.52 Encounter for screening for COVID-19
CPT/HCPCS: 36415; 51701; 70450; 71046; 80048; 80053; 81003; 82565; 83036; 83605; 83735; 84145; 84550; 85025; 85610; 86140; 87040; 87070; 87075; 87205; 87636; 93005; 96365; 96366; 96367; 96368; 99285

== ENCOUNTER 2023-02-28 12:22 | Inpatient (IN) | payer MEDICARE ==
--- NOTE | 2023-02-28 12:55 | ED ---
General Adult HPI - General Chief complaint: Recheck/Abnormal Lab/Rx Stated complaint: ABN Labs Time Seen by Provider: 02/28/23 12:42 Source: patient, EMS, RN notes reviewed, old records reviewed Mode of arrival: EMS Limitations: altered mental status - History of Present Illness Initial comments: 78-year-old male [facility] with elevated white blood cell count. Patient is currently at [facility]. He had been sent in for evaluation. He has a left heel ulceration and cellulitis to the left leg. He also complains of a cough. Patient also has an indwelling Quezada catheter. - Related Data Home Medications Medication Instructions Recorded Confirmed RX: Atorvastatin [Lipitor] 80 mg PO HS@209901/14/16 02/28/23 RX: Loratadine 10 mg PO DAILY@89901/14/16 02/28/23 RX: amLODIPine BESYLATE [Norvasc] 5 mg PO BID@0900,209901/14/16 02/28/23 RX: busPIRone HCL 15 mg PO DAILY@89901/14/16 02/28/23 RX: cloNIDine HCL [Catapres] 0.1 mg PO BID@0900,209901/14/16 02/28/23 RX: Cholecalciferol (Vitamin D3) 75 mcg PO DAILY@00 12/18/22 02/28/23 [Vitamin D3 (3000 Iu)] RX: Donepezil [Aricept] 10 mg PO HS@209912/18/22 02/28/23 RX: Acetaminophen Tab [Tylenol] 650 mg PO Q4H PRN 02/03/23 02/28/23 RX: Metoprolol Tartrate [Lopressor] 50 mg PO DAILY@89902/03/23 02/28/23 RX: hydrALAZINE HCL [Apresoline] 75 mg PO DAILY@00 02/03/23 02/28/23 Collagenase [Santyl Ointment] 1 applic TOPICAL DAILY PRN 02/28/23 02/28/23 Collagenase [Santyl Ointment] 1 applic TOPICAL HS 02/28/23 02/28/23 HYDROcodone/APAP 10-325MG [[place] 1 tab PO Q6HR PRN 02/28/23 02/28/23 10-325] Insulin Glargine-Yfgn [Semglee 15 units SQ HS@209902/28/23 02/28/23 (Yfgn) Pen] Omeprazole [PriLOSEC] 20 mg PO DAILY@0600 02/28/23 02/28/23 RX: Calcium Acetate [PhosLo] 667 mg PO TID@0800,1200,1700 02/28/23 02/28/23 RX: Doxycycline Hyclate 100 mg PO BID@0900,2100 02/28/23 02/28/23 RX: Furosemide [Lasix] 40 mg PO DAILY@0600 02/28/23 02/28/23 RX: Gabapentin [Neurontin] 200 mg PO TID@0600,1400,2200 02/28/23 02/28/23 RX: Insulin Lispro See Protocol SQ ACHS 02/28/23 02/28/23 RX: Simethicone Chew [Mylicon Chew] 40 mg PO QID@09,13,17,21 02/28/23 02/28/23 RX: predniSONE [Deltasone] 40 mg PO DAILY@0900 02/28/23 02/28/23 Triamcinolone 0.1% Cream [Kenalog 1 applicatio TOPICAL HS 02/28/23 02/28/23 0.1% Cream] Warfarin [Coumadin] 2 mg PO DAILY@1700 02/28/23 02/28/23 Allergies Allergy/AdvReac Type Severity Reaction Status Date / Time No Known Allergies Allergy Verified 02/28/23 14:04 Review of Systems ROS Statement: Those systems with pertinent positive or pertinent negative responses have been documented in the HPI. ROS Other: All systems not noted in ROS Statement are negative. Past Medical History Past Medical History: COPD, Diabetes Mellitus, Hyperlipidemia, Hypertension, Myocardial Infarction ([place]) Additional Past Medical History / Comment(s): Recent sore R great toe-healed, gout. Last Myocardial Infarction Date:: 1991 History of Any Multi-Drug Resistant Organisms: None Reported Past Surgical History: Heart Catheterization, Heart Catheterization With Stent Additional Past Surgical History / Comment(s): 01/18/16 cardiac stents to RCA x2. Other surgical hx: balloon angiioplasty 1991, nathan cataracts Past Anesthesia/Blood Transfusion Reactions: No Reported Reaction Date of Last Stent Placement:: 01/19/16 Past Psychological History: No Psychological Hx Reported Smoking Status: Never smoker Past Alcohol Use History: None Reported Past Drug Use History: None Reported - Past Family History Mother Family Medical History: No Reported History Additional Family Medical History / Comment(s): Mother is healthy and is 89yrs old. Father Family Medical History: Cancer Additional Family Medical History / Comment(s): "blood cancer". at the age of 73 yrs. General Exam Limitations: altered mental status General appearance: alert, in no apparent distress Head exam: Present: atraumatic, normocephalic Eye exam: Present: normal appearance, PERRL ENT exam: Present: mucous membranes dry Neck exam: Present: normal inspection. Absent: tenderness, meningismus Respiratory exam: Present: rhonchi. Absent: respiratory distress Cardiovascular Exam: Present: regular rate, normal rhythm GI/Abdominal exam: Present: soft. Absent: distended, tenderness, guarding Extremities exam: Present: other (Stage II ulceration of the left heel. Erythema to the left calf, no induration, no fluctuance) Neurological exam: Present: alert Skin exam: Present: warm, dry Course Vital Signs 02/28/23 02/28/23 12:28 14:42 Temperature 97.5 F L 97.9 F Pulse Rate 58 L 55 L Respiratory 18 20 Rate Blood Pressure 118/63 127/76 O2 Sat by Pulse 96 94 L Oximetry Medical Decision Making - Medical Decision Making Was pt. sent in by a medical professional or institution (MACIEL Murray, CERTIFIED HYPERBARIC TECHNOLOGIST, urgent care, hospital, or [facility]p...) When possible be specific @ -No Did you speak to anyone other than the patient for history (EMS, parent, family, police, friend...)? What history was obtained from this source @ -No Did you review nursing and triage notes (agree or disagree)? Why? @ -I reviewed and agree with nursing and triage notes Were old charts reviewed (outside hosp., previous admission, EMS record, old EKG, old radiological studies, urgent care reports/EKG's, usp records)? Report findings @ -No old charts were reviewed Differential Diagnosis (chest pain, altered mental status, abdominal pain women, abdominal pain men, vaginal bleeding, weakness, fever, dyspnea, syncope, he adache, dizziness, GI bleed, back pain, seizure, CVA, palpatations, mental health, musculoskeletal)? @ -[Differential Fever: Pneumonia, viral URI, endocarditis, myocarditis, pericarditis, otitis, si nusitis, peritonsillar Abscess, retropharyngeal Abscess, epiglottitis, peritonitis, appendicitis, Marjorie cystitis, diverticulitis, hepatitis, colitis, UTI, PID, TOA, pyelonephritis, prostatitis, epididymitis, meningitis, encephalitis, pulmonary embolism, CVA, thyroid storm, pancreatitis, adrenal mehdi is, cavernous sinus thrombosis, this is not meant to be an all-inclusive list. EKG interpreted by me (3pts min.). @Chest x-ray negative for focal pneumonia, x-ray of the left ankle negative for soft tissue gas, does show chronic orthopedic issues. No osteomyelitis. X-rays interpreted by me (1pt min.). @ -None done CT interpreted by me (1pt min.). @ -None done U/S interpreted by me (1pt. min.). @ -None done What testing was considered but not performed or refused? (CT, X-rays, U/S, labs)? Why? @ -None What meds were considered but not given or refused? Why? @ -None Did you discuss the management of the patient with other professionals (professionals i.e. , PA, CERTIFIED HYPERBARIC TECHNOLOGIST, lab, RT, psych nurse, social welfare research worker, neighborhood conservation officer, teacher, environmental officer, dependency case manager)? Give summary @Dr. Ventura Was smoking cessation discussed for >3mins.? @ -No Was critical care preformed (if so, how long)? @ -No Were there social determinants of health that impacted care today? How? (Homelessness, low income, unemployed, alcoholism, drug addiction, transportation, low edu. Level, literacy, decrease access to med. care, assisted, rehab)? @ -No Was there de-escalation of care discussed even if they declined (Discuss DNR or withdrawal of care, Hospice)? DNR status @ -No What co-morbidities impacted this encounter? (DM, HTN, Smoking, COPD, CAD, Cancer, CVA, ARF, Chemo, Hep., AIDS, mental health diagnosis, sleep apnea, morbid obesity)? @Hypertension, diabetes Was patient admitted / discharged? Hospital course, mention meds given and route, prescriptions, significant lab abnormalities, going to OR and other pertinent info. @ -[78-year-old male presenting with elevated white blood cell count from [facility]. Patient does have left leg cellulitis and is currently on antibiotics. His white count continues to elevate and is currently 22. He is afebrile. He has mild elevation in serum creatinine but otherwise normal laboratory testing. Viral panel negative. Urinalysis pending. Patient covered with broad-spectrum antibiotics and admitted to internal medicine. Undiagnosed new problem with uncertain prognosis? @ -No Drug Therapy requiring intensive monitoring for toxicity (Heparin, Nitro, Insu rochelle, Cardizem)? @ -No Were any procedures done? @ -No Diagnosis/symptom? @ -[Cellulitis, leukocytosis Acute, or Chronic, or Acute on Chronic? @ -Acute Uncomplicated (without systemic symptoms) or Complicated (systemic symptoms)? @ -Complicated Side effects of treatment? @ -No Exacerbation, Progression, or Severe Exacerbation? @ -No Poses a threat to life or bodily function? How? (Chest pain, USA, MS, pneumonia, PE, COPD, DKA, ARF, appy, cholecystitis, CVA, Diverticulitis, Homicidal, Suici roxanna, threat to staff... and all critical care pts) @Yes, sepsis - Lab Data Result diagrams: 02/28/23 13:02 02/28/23 13:02 Lab Results 02/28/23 02/28/23 02/28/23 Range/Units 13:02 13:02 13:02 WBC 22.0 H (3.8-10.6) k/uL RBC 4.54 (4.30-5.90) m/uL Hgb 13.0 (13.0-17.5) gm/dL Hct 38.8 L (39.0-53.0) % MCV 85.4 (80.0-100.0) fL MCH 28.6 (25.0-35.0) pg MCHC 33.5 (31.0-37.0) g/dL RDW 15.5 (11.5-15.5) % Plt Count 284 (150-450) k/uL MPV 8.2 Neutrophils % 91 % Lymphocytes % 5 % Monocytes % 3 % Eosinophils % 0 % Basophils % 0 % Neutrophils # 20.0 H (1.3-7.7) k/uL Lymphocytes # 1.1 (1.0-4.8) k/uL Monocytes # 0.7 (0-1.0) k/uL Eosinophils # 0.1 (0-0.7) k/uL Basophils # 0.0 (0-0.2) k/uL Sodium 136 L (137-145) mmol/L Potassium 3.9 (3.5-5.1) mmol/L Chloride 97 L (98-107) mmol/L Carbon Dioxide 31 H (22-30) mmol/L Anion Gap 8 mmol/L BUN 60 H (9-20) mg/dL Creatinine 1.68 H (0.66-1.25) mg/dL Est GFR (CKD-EPI)AfAm 45 (>60 ml/min/1.73 sqM) Est GFR (CKD-EPI)NonAf 39 (>60 ml/min/1.73 sqM) Glucose 197 H (74-99) mg/dL Plasma Lactic Acid Kenny 2.0 (0.7-2.0) mmol/L Calcium 9.8 (8.4-10.2) mg/dL Magnesium 2.0 (1.6-2.3) mg/dL Total Bilirubin 0.7 (0.2-1.3) mg/dL AST 24 (17-59) U/L ALT 19 (4-49) U/L Alkaline Phosphatase 56 (38-126) U/L Total Protein 6.5 (6.3-8.2) g/dL Albumin 3.4 L (3.5-5.0) g/dL Influenza Type A (PCR) (Not Detectd) Influenza Type B (PCR) (Not Detectd) RSV (PCR) (Not Detectd) SARS-CoV-2 (PCR) (Not Detectd) 02/28/23 Range/Units 13:02 WBC (3.8-10.6) k/uL RBC (4.30-5.90) m/uL Hgb (13.0-17.5) gm/dL Hct (39.0-53.0) % MCV (80.0-100.0) fL MCH (25.0-35.0) pg MCHC (31.0-37.0) g/dL RDW (11.5-15.5) % Plt Count (150-450) k/uL MPV Neutrophils % % Lymphocytes % % Monocytes % % Eosinophils % % Basophils % % Neutrophils # (1.3-7.7) k/uL Lymphocytes # (1.0-4.8) k/uL Monocytes # (0-1.0) k/uL Eosinophils # (0-0.7) k/uL Basophils # (0-0.2) k/uL Sodium (137-145) mmol/L Potassium (3.5-5.1) mmol/L Chloride (98-107) mmol/L Carbon Dioxide (22-30) mmol/L Anion Gap mmol/L BUN (9-20) mg/dL Creatinine (0.66-1.25) mg/dL Est GFR (CKD-EPI)AfAm (>60 ml/min/1.73 sqM) Est GFR (CKD-EPI)NonAf (>60 ml/min/1.73 sqM) Glucose (74-99) mg/dL Plasma Lactic Acid Kenny (0.7-2.0) mmol/L Calcium (8.4-10.2) mg/dL Magnesium (1.6-2.3) mg/dL Total Bilirubin (0.2-1.3) mg/dL AST (17-59) U/L ALT (4-49) U/L Alkaline Phosphatase (38-126) U/L Total Protein (6.3-8.2) g/dL Albumin (3.5-5.0) g/dL Influenza Type A (PCR) Not Detected (Not Detectd) Influenza Type B (PCR) Not Detected (Not Detectd) RSV (PCR) Not Detected (Not Detectd) SARS-CoV-2 (PCR) Not Detected (Not Detectd) Disposition Clinical Impression: Weakness, Stage II pressure ulcer of left heel, Leukocytosis, Cellulitis Disposition: ADMITTED IP TO THIS HOSP Condition: Stable Is patient prescribed a controlled substance at d/c from ED?: No Referrals: Jose Ledesma MD [Primary Care Provider] - 1-2 days Time of Disposition: 14:57
[2023-02-28 13:16] LABS: Basophils % (A) 0 %; Eosinophils # (A) 0.1 k/uL (0-0.7); Eosinophils % (A) 0 %; HCT 38.8 % (39.0-53.0); Lymphocytes # (A) 1.1 k/uL (1.0-4.8); Lymphocytes % (A) 5 %; MCH 28.6 pg (25.0-35.0); MCHC 33.5 g/dL (31.0-37.0); MCV 85.4 fL (80.0-100.0); Mean Platelet Volume 8.2; Monocytes # (A) 0.7 k/uL (0-1.0); Monocytes % (A) 3 %; Neutrophils % (A) 91 %; Platelet Count 284 k/uL (150-450); RBC 4.54 m/uL (4.30-5.90); RDW 15.5 % (11.5-15.5)
--- NOTE | 2023-02-28 13:26 | XR ---
EXAMINATION TYPE: XR chest 1V portable DATE OF EXAM: 02/28/2023 1:11 PM CLINICAL INDICATION:Male, 78 years old with history of Pain; [facility] COMPARISON: Chest radiographs from 02/04/2023 TECHNIQUE: XR chest 1V portable Frontal view of the chest. FINDINGS: Lungs/Pleura: There is no evidence of pleural effusion, focal consolidation, or pneumothorax. Pulmonary vascularity: Unremarkable. Heart/mediastinum: Cardiomediastinal silhouette is enlarged and stable. Atherosclerotic calcificatio ns are seen in the aorta. Musculoskeletal: No acute osseous pathology. Other findings: None IMPRESSION: No acute cardiopulmonary disease/process.
[2023-02-28 13:35] LABS: ALT 19 U/L (4-49); AST 24 U/L (17-59); African American GFR (CKD) 45 (>60 ml/min/1.73 sqM); Albumin 3.4 g/dL (3.5-5.0); Alkaline Phosphatase 56 U/L (38-126); Anion Gap 8 mmol/L; Blood Urea Nitrogen 60 mg/dL (9-20); Calcium 9.8 mg/dL (8.4-10.2); Carbon Dioxide 31 mmol/L (22-30); Chloride 97 mmol/L (98-107); Glucose 197 mg/dL (74-99); Non-African American GFR(CKD) 39 (>60 ml/min/1.73 sqM); Potassium 3.9 mmol/L (3.5-5.1); Sodium 136 mmol/L (137-145); Total Bilirubin 0.7 mg/dL (0.2-1.3); Total Protein 6.5 g/dL (6.3-8.2)
[2023-02-28] MEDS ORDERED: VANCOMYCIN IV PER PHARMACY 1 EACH MISC MISCELLANE PRN (14:06)
[2023-02-28] MEDS: PIPERACILLIN-TAZOBACTAM 3.375 GM in SODIUM CHLORIDE 0.9% 100 ML IVPB ONE (14:20)
--- NOTE | 2023-02-28 14:30 | XR ---
EXAMINATION TYPE: XR ankle complete 3 views LT DATE OF EXAM: 02/28/2023 Comparison: None Clinical History: 78-year-old male with pain and infection Findings: Corticated ossific density below the medial malleolus suggesting sequela of prior partially united av ulsion fracture. Ossific density at the distal Achilles tendon with mild thickening near. Posterior p lantar heel spurs. There is a focal subchondral lucency along the medial talar dome. There may be add itional lucency involving the lateral talar dome. Vascular calcifications. No acute fracture, subluxa tion, dislocation seen. Impression: 1. 7 mm ossific density at the distal Achilles tendon with mild thickening. Consider chronic insertio nal tendinopathy. 2. Sequela of old injury to the medial malleolus. 3. 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 4. No vaughn lytic destruction identified to clearly indicate osteomyelitis.
[2023-02-28] MEDS ORDERED: NALOXONE 0.4 MG/ML 1 ML VIAL IV PRN (14:53)
[2023-02-28] MEDS ORDERED: ACETAMINOPHEN TAB 325 MG TAB PO PRN (14:53)
[2023-02-28] MEDS: SODIUM CHLORIDE 0.9% 1,000 ML IV SCH (15:42)
[2023-02-28] MEDS: VANCOMYCIN 2,000 MG in SODIUM CHLORIDE 0.9% 500 ML 500 ML IVPB ONE (15:43)
[2023-02-28 18:36] LABS: Appearance,Urine Clear (Clear); Bacteria,Urine Occasional /hpf; Bilirubin,Urine Negative (Negative); Blood,Urine Negative (Negative); Color,Urine Colorless; Glucose,Urine (UA) Negative (Negative); Ketones,Urine Negative (Negative); Leukocyte Esterase,Urine Large (Negative); Mucus,Urine Rare /hpf; Nitrite,Urine Positive (Negative); PH, Urine 5.5 (5.0-8.0); Protein,Urine Negative (Negative); RBC,Urine 3 /hpf (0-5); Specific Gravity,Urine 1.015 (1.001-1.035); Squamous Epithelial Cell,Urine <1 /hpf (0-4); Urobilinogen,Urine <2.0 mg/dL (<2.0); WBC,Urine 13 /hpf (0-5)
[2023-02-28] MEDS: PIPERACILLIN-TAZOBACTAM 3.375 GM in SODIUM CHLORIDE 0.9% 100 ML IVPB SCH (22:23)
[2023-02-28] MEDS ORDERED: DEXTROSE 50% SYRINGE 50 ML IVP PRN (22:34)
[2023-02-28] MEDS: INSULIN DETEMIR (LEVEMIR) 100 UNIT/ML SYR SQ SCH (23:03)
--- NOTE | 2023-02-28 23:22 | P.HPIM ---
History of Present Illness H&P Date: 02/28/23 Chief Complaint: Leukocytosis worsening Patient is a 78-year-old male with a known history of coronary artery disease status post stent placement, atrial fibrillation on anticoagulation with Coumadin, hypertension, diabetes type 2 insulin-dependent, hyperlipidemia, COPD, gout and dementia who is currently at senior care was sent to hospital due to worsening leukocytosis. Patient discharged from hospital recently on 02/09/2023 after treatment for left heel diabetic foot ulcer and surrounding cellulitis. Patient does have indwelling Quezada catheter. Cognitive impairment and could not provide much history. Patient's daughter is at bedside. Otherwise patient does not have any fever or chills. Denies any abdominal pain. No nausea vomiting or diarrhea. Chest x-ray showed no acute cardiopulmonary process/disease. Ankle x-ray showed 7 mm ossific density at the distal Achilles tendon on with mild thickening. Consider chronic insertional tendinopathy. Sequela of old injury to the medial malleolus. No vaughn lytic destruction identified to clearly indicate osteomyelitis. Laboratory data showed WBC 22.0 hemoglobin 13.0 and platelets 284 Sodium 136 potassium 3.9 chloride 97 bicarb is 31 BUN 60 and creatinine 1.68 and blood sugar 197. Liver enzymes are not elevated. Albumin 3.4 Urinalysis showed large leukocyte esterase nitrite positive with elevated WBCs 13 and occasional bacteria. Influenza A, B, RSV and COVID-19 PCR not detected. Recent urine cultures from 02/25/2023 showed gram-negative bacilli. Review of Systems Complete review of systems could not be obtained from the patient except as per HPI Past Medical History Past Medical History: COPD, Diabetes Mellitus, Hyperlipidemia, Hypertension, Myocardial Infarction ([place]) Additional Past Medical History / Comment(s): Recent sore R great toe-healed, gout. Last Myocardial Infarction Date:: 1991 History of Any Multi-Drug Resistant Organisms: None Reported Past Surgical History: Heart Catheterization, Heart Catheterization With Stent Additional Past Surgical History / Comment(s): 01/18/16 cardiac stents to RCA x2. Other surgical hx: balloon angiioplasty 1991, nathan cataracts Past Anesthesia/Blood Transfusion Reactions: No Reported Reaction Date of Last Stent Placement:: 01/19/16 Past Psychological History: No Psychological Hx Reported Smoking Status: Never smoker Past Alcohol Use History: None Reported Past Drug Use History: None Reported - Past Family History Mother Family Medical History: No Reported History Additional Family Medical History / Comment(s): Mother is healthy and is 89yrs old. Father Family Medical History: Cancer Additional Family Medical History / Comment(s): "blood cancer". at the age of 73 yrs. Medications and Allergies Home Medications Medication Instructions Recorded Confirmed Type Atorvastatin [Lipitor] 80 mg PO HS@209901/14/16 02/28/23 History Loratadine 10 mg PO DAILY@89901/14/16 02/28/23 History amLODIPine BESYLATE [Norvasc] 5 mg PO BID@09,209901/14/16 02/28/23 History busPIRone HCL 15 mg PO DAILY@89901/14/16 02/28/23 History cloNIDine HCL [Catapres] 0.1 mg PO BID@00,209901/14/16 02/28/23 History Cholecalciferol (Vitamin D3) 75 mcg PO DAILY@89912/18/22 02/28/23 History [Vitamin D3 (3000 Iu)] Donepezil [Aricept] 10 mg PO HS@209912/18/22 02/28/23 History Acetaminophen Tab [Tylenol] 650 mg PO Q4H PRN 02/03/23 02/28/23 History Metoprolol Tartrate [Lopressor] 50 mg PO DAILY@89902/03/23 02/28/23 History hydrALAZINE HCL [Apresoline] 75 mg PO DAILY@89902/03/23 02/28/23 History Calcium Acetate [PhosLo] 667 mg PO TID@0800,1200,1700 02/28/23 02/28/23 History Collagenase [Santyl Ointment] 1 applic TOPICAL DAILY PRN 02/28/23 02/28/23 History Collagenase [Santyl Ointment] 1 applic TOPICAL HS 02/28/23 02/28/23 History Doxycycline Hyclate 100 mg PO BID@0900,209902/28/23 02/28/23 History Furosemide [Lasix] 40 mg PO DAILY@0600 02/28/23 02/28/23 History Gabapentin [Neurontin] 200 mg PO TID@0600,1400,2200 02/28/23 02/28/23 History HYDROcodone/APAP 10-325MG [[place] 1 tab PO Q6HR PRN 02/28/23 02/28/23 History 10-325] Insulin Glargine-Yfgn [Semglee 15 units SQ HS@2100 02/28/23 02/28/23 History (Yfgn) Pen] Insulin Lispro See Protocol SQ ACHS 02/28/23 02/28/23 History Omeprazole [PriLOSEC] 20 mg PO DAILY@0600 02/28/23 02/28/23 History Simethicone Chew [Mylicon Chew] 40 mg PO QID@09,13,17,21 02/28/23 02/28/23 History Triamcinolone 0.1% Cream [Kenalog 1 applicatio TOPICAL HS 02/28/23 02/28/23 History 0.1% Cream] Warfarin [Coumadin] 2 mg PO DAILY@1700 02/28/23 02/28/23 History predniSONE [Deltasone] 40 mg PO DAILY@0900 02/28/23 02/28/23 History Allergies Allergy/AdvReac Type Severity Reaction Status Date / Time No Known Allergies Allergy Verified 02/28/23 14:04 Physical Exam Vitals: Vital Signs Temp Pulse Resp BP Pulse Ox 02/28/23 14:42 97.9 F 55 L 20 127/76 94 L 02/28/23 12:28 97.5 F L 58 L 18 118/63 96 Intake and Output 02/28/23 02/28/23 02/28/23 06:59 14:59 22:59 Intake Total 900 Output Total 450 Balance 450 Intake: Intake, IV Titration 900 Amount Piperacillin-Tazobactam 3 100 .375 gm In Sodium Chloride 0.9% 100 ml @ 200 mls/hr IVPB ONCE ONE Rx#:[id number] Sodium Chloride 0.9% 1, 300 000 ml @ 75 mls/hr IV . [id number] COUNT INCLUDES THE [facility] Rx#:[id number] Vancomycin 1,750 mg In 500 Sodium Chloride 0.9% 500 ml 500 ml @ 167 mls/hr IVPB Q24HR@1200 COUNT INCLUDES THE [facility] Rx#: [id number] Output: Urine 450 Uretheral (Quezada) 450 Other: # Bowel Movements 0 Weight 95.254 kg PHYSICAL EXAMINATION: Patient is lying in the bed comfortably, no acute distress, awake alert and oriented x 1-2.. HEENT: Normocephalic. Neck is supple. Pupils reactive. Nostrils clear. Oral cavity is moist. Neck reveals no JVD, carotid bruits, or thyromegaly. CHEST EXAMINATION: Trachea is central. Symmetrical expansion. Lung sousa clear to auscultation and percussion. CARDIAC: Normal S1, S2 with no gallops. No murmurs ABDOMEN: Soft. Bowel sounds present. Nontender. No organomegaly. No abdominal bruits. Extremities: reveal no edema. Left heel ulcer without discharge. No clubbing or cyanosis Neurologically awake, alert, oriented x 1-2 able to move all 4 extremities. No gross focal neurological deficit. Skin: No rash or skin lesions. Psychiatric: Coperative. Could not be assessed completely. Musculoskeletal: No joint swelling or deformity. Results CBC & Chem 7: 02/28/23 13:02 02/28/23 13:02 Labs: Abnormal Lab Results - Last 24 Hours (Table) 02/28/23 02/28/23 02/28/23 Range/Units 13:02 13:02 18:12 WBC 22.0 H (3.8-10.6) k/uL Hct 38.8 L (39.0-53.0) % Neutrophils # 20.0 H (1.3-7.7) k/uL Sodium 136 L (137-145) mmol/L Chloride 97 L (98-107) mmol/L Carbon Dioxide 31 H (22-30) mmol/L BUN 60 H (9-20) mg/dL Creatinine 1.68 H (0.66-1.25) mg/dL Glucose 197 H (74-99) mg/dL Albumin 3.4 L (3.5-5.0) g/dL Ur Leukocyte Esterase Large H (Negative) Urine WBC 13 H (0-5) /hpf Urine Bacteria Occasional H (None) /hpf Urine Mucus Rare H (None) /hpf Thrombosis Risk Factor Assmnt - DVT/VTE Prophylaxis DVT/VTE Prophylaxis: Pharmacologic Prophylaxis ordered Assessment and Plan Assessment: Acute urinary tract infection. Urine cultures from 02/25/2023 showed gram- negative bacilli. Worsening leukocytosis Acute kidney injury likely prerenal creatinine 1.68 and baseline 1.1 Recent diabetic left heel ulcer with surrounding cellulitis s/p antibiotic treatment course Generalized weakness and unable to ambulate without support. Hyperglycemia with uncontrolled diabetes type 2 insulin-dependent Paroxysmal atrial fibrillation on anticoagulation with Coumadin Coronary arteries with history of stent placement Hypertension Hyperlipidemia Dementia/cognitive impairment Stage II sacral decub ulcers. DVT prophylaxis patient is already on Coumadin. Follow-up INR level. Plan: Patient will be continued on IV hydration with normal saline. Started on broad- spectrum antibiotics due to worsening leukocytosis and recent history of left heel ulcer. Follow-up blood cultures and urine cultures. Start back on blood pressure medications. Clonidine is on hold due to bradycardia. Continue with metoprolol and warfarin pharmacy dosing. Limit narcotic pain medications. Follow-up renal function. ID consult for further evaluation. Prognosis is guarded at this time. Discussed with his daughter at bedside in detail. Time with Patient: Greater than 30
[2023-03-01 02:04] LABS: Prothrombin Time 29.3 sec (10.0-12.5)
[2023-03-01] MEDS: WARFARIN 1.5 MG TAB PO ONE (04:16)
[2023-03-01 07:32] LABS: Glucose,Whole Blood 199 mg/dL (70-110)
[2023-03-01] MEDS: INSULIN ASPART (NovoLOG) 100 UNIT/ML VIAL SQ SCH (07:40)
[2023-03-01] MEDS: METOPROLOL TARTRATE 50 MG TAB PO SCH (08:54)
[2023-03-01] MEDS: PANTOPRAZOLE 40 MG TABLET PO SCH (08:54)
[2023-03-01 11:19] LABS: Basophils # (A) 0.01 X 10*3/uL (0.00-0.10); Basophils % (A) 0.1 %; Eosinophils # (A) 0.02 X 10*3/uL (0.04-0.35); Eosinophils % (A) 0.2 %; HCT 34.8 % (39.6-50.0); HGB 10.9 g/dL (13.0-17.0); Lymphocytes % (A) 12.4 %; MCH 26.7 pg (27.0-32.0); MCHC 31.3 g/dL (32.0-37.0); MCV 85.1 FL (80.0-97.0); Mean Platelet Volume 11.6 FL (9.5-12.2); Monocytes # (A) 0.76 X 10*3/uL (0.20-1.00); Monocytes % (A) 6.3 %; NRBC Per 100 WBC 0 X 10*3/uL (0.00-0.01); Neutrophils # (A) 9.79 X 10*3/uL (1.80-7.70); Neutrophils % (A) 80.5 %; Platelet Count 216 X 10*3/uL (140-440); RBC 4.09 X 10*6/uL (4.40-5.60); RDW 15.6 % (11.5-14.5); WBC 12.14 X 10*3/uL (4.50-10.00)
[2023-03-01 12:11] LABS: Glucose,Whole Blood 216 mg/dL (70-110)
[2023-03-01 12:20] LABS: INR 2.48 sec (0.93-1.11); Prothrombin Time 25.2 sec (9.9-11.9)
[2023-03-01] MEDS: VANCOMYCIN 1,750 MG in SODIUM CHLORIDE 0.9% 500 ML 500 ML IVPB SCH (12:34)
[2023-03-01 16:50] LABS: Glucose,Whole Blood 83 mg/dL (70-110)
[2023-03-01] MEDS ORDERED: WARFARIN 2 MG TAB PO SCH (17:00)
[2023-03-01 20:09] LABS: Glucose,Whole Blood 131 mg/dL (70-110)
[2023-03-01] MEDS: ATORVASTATIN 80 MG TAB PO SCH (20:25)
[2023-03-01] MEDS: DONEPEZIL 10 MG TAB PO SCH (20:25)
[2023-03-01] MEDS: ZINC OXIDE PASTE (Z-GUARD) 1 APPLIC TOPICAL PRN (23:44)
[2023-03-02] MEDS: ACETAMINOPHEN TAB 325 MG TAB PO PRN (00:03)
[2023-03-02] MEDS: QUEtiapine 25 MG TAB PO SCH (00:46)
--- NOTE | 2023-03-02 01:03 | P.CONS ---
History of Present Illness - Reason for Consult Consult date: 03/01/23 Leukocytosis Requesting physician: Elizabeth Ventura - Chief Complaint Leukocytosis and heel ulcer x 1 day - History of Present Illness This is a telehealth visit Patient is a 78-year-old male with a past medical history significant for diabetes mellitus hypertension hyperlipidemia [place] patient was brought into the hospital from the local [facility] concerning for elevated white count apparently the patient did have left heel ulceration and cellulitis to the left leg patient is not very clear for how long he has that wound to the left heel area and what kind of treatment has been provided to him has been complaining of pain to the left lower extremity however not able to quantify it any further or any radiation and there is no foul-smelling drainage patient denies high-grade fever and no fever was recorded on presentation to the hospital patient was not tachycardic hypotensive or hypoxic patient did have a elevated white count 22,000 with a left shift creatinine is mild elevated 1.68 electrolytes liver isms are normal urine dip shows large leukocyte esterase and 13 WBC influenza RSV and COVID testing was negative blood cultures obtained which are currently pending patient did have a chest x-ray no acute cardiopulmonary disease process patient did have the ankle x-ray chronic insertional tendinopathy no lytic destruction to be suspicious for osteomyelitis patient was started on vancomycin infectious disease was consulted for further management of antibiotic therapy Review of Systems Positive point and negatives has been mentioned in the HPI, complete review of systems was performed and all other systems are negative Past Medical History Past Medical History: COPD, Diabetes Mellitus, Hyperlipidemia, Hypertension, Myocardial Infarction ([place]) Additional Past Medical History / Comment(s): Recent sore R great toe-healed, gout. Last Myocardial Infarction Date:: 1991 History of Any Multi-Drug Resistant Organisms: None Reported Past Surgical History: Heart Catheterization, Heart Catheterization With Stent Additional Past Surgical History / Comment(s): 01/18/16 cardiac stents to RCA x2. Other surgical hx: balloon angiioplasty 1991, nathan cataracts Past Anesthesia/Blood Transfusion Reactions: No Reported Reaction Date of Last Stent Placement:: 01/19/16 Past Psychological History: No Psychological Hx Reported Smoking Status: Never smoker Past Alcohol Use History: None Reported Past Drug Use History: None Reported - Past Family History Mother Family Medical History: No Reported History Additional Family Medical History / Comment(s): Mother is healthy and is 89yrs old. Father Family Medical History: Cancer Additional Family Medical History / Comment(s): "blood cancer". at the age of 73 yrs. Medications and Allergies Home Medications Medication Instructions Recorded Confirmed Type Atorvastatin [Lipitor] 80 mg PO HS@209901/14/16 02/28/23 History Loratadine 10 mg PO DAILY@89901/14/16 02/28/23 History amLODIPine BESYLATE [Norvasc] 5 mg PO BID@899,209901/14/16 02/28/23 History busPIRone HCL 15 mg PO DAILY@89901/14/16 02/28/23 History Cholecalciferol (Vitamin D3) 75 mcg PO DAILY@89912/18/22 02/28/23 History [Vitamin D3 (3000 Iu)] Donepezil [Aricept] 10 mg PO HS@209912/18/22 02/28/23 History Acetaminophen Tab [Tylenol] 650 mg PO Q4H PRN 02/03/23 02/28/23 History Metoprolol Tartrate [Lopressor] 50 mg PO DAILY@89902/03/23 02/28/23 History hydrALAZINE HCL [Apresoline] 75 mg PO DAILY@89902/03/23 02/28/23 History Calcium Acetate [PhosLo] 667 mg PO TID@0800,1200,1700 02/28/23 02/28/23 History Collagenase [Santyl Ointment] 1 applic TOPICAL DAILY PRN 02/28/23 02/28/23 History Collagenase [Santyl Ointment] 1 applic TOPICAL HS 02/28/23 02/28/23 History Furosemide [Lasix] 40 mg PO DAILY@59902/28/23 02/28/23 History Insulin Glargine-Yfgn [Semglee 15 units SQ HS@209902/28/23 02/28/23 History (Yfgn) Pen] Insulin Lispro See Protocol SQ ACHS 02/28/23 02/28/23 History Omeprazole [PriLOSEC] 20 mg PO DAILY@59902/28/23 02/28/23 History Simethicone Chew [Mylicon Chew] 40 mg PO QID@09,13,17,21 02/28/23 02/28/23 History Triamcinolone 0.1% Cream [Kenalog 1 applicatio TOPICAL HS 02/28/23 02/28/23 History 0.1% Cream] Warfarin [Coumadin] 2 mg PO DAILY@1700 02/28/23 02/28/23 History Cyanocobalamin/Cobamamide [Vitamin 1 tab SUBLINGUAL DAILY 30 Days #30 03/21/23 Rx B-12 5,000 Mcg Tab Sl] tab Divalproex ER [Depakote ER] 250 mg PO DAILY tab 03/21/23 Rx Folic Acid 1 mg PO DAILY 30 Days #30 tab 03/21/23 Rx Gabapentin [Neurontin] 100 mg PO TID 3 Days #9 cap 03/21/23 Rx Nystatin 100,000 Unit/gm Powd 1 applic TOPICAL BID each 03/21/23 Rx [Mycostatin Powder] QUEtiapine [SEROquel] 25 mg PO HS 15 Days #15 tab 03/21/23 Rx Allergies Allergy/AdvReac Type Severity Reaction Status Date / Time No Known Allergies Allergy Verified 02/28/23 14:04 Physical Exam Vitals: Vital Signs Temp Pulse Pulse Resp BP Pulse Ox 03/01/23 02:00 97.8 F 68 18 02/28/23 14:42 97.9 F 55 L 20 127/76 94 L 02/28/23 12:28 97.5 F L 58 L 18 118/63 96 Intake and Output 02/28/23 03/01/23 03/01/23 22:59 06:59 14:59 Intake Total 900 Output Total 450 1250 Balance 450 -1250 Intake: Intake, IV Titration 900 Amount Piperacillin-Tazobactam 3 100 .375 gm In Sodium Chloride 0.9% 100 ml @ 200 mls/hr IVPB ONCE ONE Rx#:[id number] Sodium Chloride 0.9% 1, 300 000 ml @ 75 mls/hr IV . [id number] [facility] Rx#:[id number] Vancomycin 1,750 mg In 500 Sodium Chloride 0.9% 500 ml 500 ml @ 167 mls/hr IVPB Q24HR@1200 [facility] Rx#: [id number] Output: Urine 450 1250 Uretheral (Quezada) 450 Other: # Voids 2 # Bowel Movements 0 Elderly male lying in bed in no distress Respiratory system unlabored breathing decreased breath sound the base Heart S1-S2 regular Abdominal soft no tenderness Extremities left heel ulcer with no significant slough tissue minimal redness no foul-smelling drainage reported Exam completed with the help of [employer] Results CBC & Chem 7: 03/22/23 07:23 03/22/23 07:23 Labs: Abnormal Lab Results - Last 24 Hours (Table) 02/28/23 02/28/23 02/28/23 Range/Units 13:02 13:02 18:12 WBC 22.0 H (3.8-10.6) k/uL Hct 38.8 L (39.0-53.0) % Neutrophils # 20.0 H (1.3-7.7) k/uL PT (10.0-12.5) sec INR (<1.2) Sodium 136 L (137-145) mmol/L Chloride 97 L (98-107) mmol/L Carbon Dioxide 31 H (22-30) mmol/L BUN 60 H (9-20) mg/dL Creatinine 1.68 H (0.66-1.25) mg/dL Glucose 197 H (74-99) mg/dL POC Glucose (mg/dL) (70-110) mg/dL Albumin 3.4 L (3.5-5.0) g/dL Ur Leukocyte Esterase Large H (Negative) Urine WBC 13 H (0-5) /hpf Urine Bacteria Occasional H (None) /hpf Urine Mucus Rare H (None) /hpf 03/01/23 03/01/23 Range/Units 01:21 07:30 WBC (3.8-10.6) k/uL Hct (39.0-53.0) % Neutrophils # (1.3-7.7) k/uL PT 29.3 H (10.0-12.5) sec INR 3.0 H (<1.2) Sodium (137-145) mmol/L Chloride (98-107) mmol/L Carbon Dioxide (22-30) mmol/L BUN (9-20) mg/dL Creatinine (0.66-1.25) mg/dL Glucose (74-99) mg/dL POC Glucose (mg/dL) 199 H (70-110) mg/dL Albumin (3.5-5.0) g/dL Ur Leukocyte Esterase (Negative) Urine WBC (0-5) /hpf Urine Bacteria (None) /hpf Urine Mucus (None) /hpf Assessment and Plan (1) Diabetic foot infection Status: Acute Code(s): E11.628 - TYPE 2 DIABETES MELLITUS WITH OTHER SKIN COMPLICATIONS; L08.9 - LOCAL INFECTION OF THE SKIN AND SUBCUTANEOUS TISSUE, UNSP SNOMED Code(s): 440172048 (2) Diabetic foot ulcer Status: Acute Code(s): E11.621 - TYPE 2 DIABETES MELLITUS WITH FOOT ULCER; L97.509 - NON-PRESSURE CHRONIC ULCER OTH PRT UNSP FOOT W UNSP SEVERITY SNOMED Code(s): 577650810 (3) Left leg cellulitis Status: Acute Code(s): L03.116 - CELLULITIS OF LEFT LOWER LIMB SNOMED Code(s): 73707112073825218 (4) Leukocytosis Status: Acute Code(s): D72.829 - ELEVATED WHITE BLOOD CELL COUNT, UNSPECIFIED SNOMED Code(s): 274191209 Plan: 1patient was in the hospital with elevated white count source is likely left heel wound with secondary cellulitis in this patient with likely stage III pressure ulcer at the wound base did have some slough tissue like responsible for cellulitis to the left lower extremity likely from gram-positive skin [place] 2patient with borderline kidney function will need to monitor vancomycin trough very closely to prevent any nephrotoxicity 3we will request local wound culture to guide further antibiotic therapy 4vancomycin pharmacy to dose target trough of 15 while watching kidney function and Vanco trough closely 5local wound care with the Medihoney followed by moist dressing keep the area of the pressure We will follow on clinical condition and cultures to further adjust medication if needed Thank you for this consultation we will follow the patient along with you Dictation was produced using [employer] dictation software. please excuse any grammatical, word or spelling errors. Time with Patient: Greater than 30
[2023-03-02] MEDS: traMADol 50 MG TAB PO PRN (03:09)
[2023-03-02 06:07] LABS: Glucose,Whole Blood 66 mg/dL (70-110)
[2023-03-02 06:23] LABS: Glucose,Whole Blood 78 mg/dL (70-110)
[2023-03-02 08:25] LABS: Basophils % (A) 0 %; Eosinophils % (A) 0 %; HCT 34.7 % (39.0-53.0); HGB 11.4 gm/dL (13.0-17.5); Hypochromasia Slight; Lymphocytes # (A) 0.9 k/uL (1.0-4.8); Lymphocytes % (A) 6 %; MCH 28.6 pg (25.0-35.0); MCHC 32.8 g/dL (31.0-37.0); MCV 87.3 fL (80.0-100.0); Mean Platelet Volume 8.1; Monocytes # (A) 0.7 k/uL (0-1.0); Monocytes % (A) 4 %; Neutrophils # (A) 14.7 k/uL (1.3-7.7); Neutrophils % (A) 89 %; Platelet Count 212 k/uL (150-450); RBC 3.98 m/uL (4.30-5.90); RDW 15.5 % (11.5-15.5); WBC 16.4 k/uL (3.8-10.6)
[2023-03-02 08:28] LABS: INR 3.1 (<1.2); Prothrombin Time 30.9 sec (10.0-12.5)
[2023-03-02 08:30] LABS: African American GFR (CKD) 75 (>60 ml/min/1.73 sqM); Anion Gap 6 mmol/L; Blood Urea Nitrogen 32 mg/dL (9-20); Calcium 8.1 mg/dL (8.4-10.2); Carbon Dioxide 26 mmol/L (22-30); Chloride 109 mmol/L (98-107); Glucose 85 mg/dL (74-99); Non-African American GFR(CKD) 65 (>60 ml/min/1.73 sqM); Sodium 141 mmol/L (137-145)
[2023-03-02] MEDS: busPIRone HCl 5 MG TAB PO SCH (08:40)
[2023-03-02 08:57] LABS: Potassium 2.9 mmol/L (3.5-5.1)
[2023-03-02 09:33] LABS: C Reactive Protein 3.1 mg/dL (<1.0)
--- NOTE | 2023-03-02 10:56 | P.PN ---
Subjective Progress Note Date: 03/02/23 Principal diagnosis: Reason for follow-up is left lower extremity cellulitis UTI and bacteremia This is a telehealth visit Patient is a 78-year-old male with a past medical history significant for diabetes mellitus hypertension hyperlipidemia [place] patient was brought into the hospital from the local care home concerning for elevated white count, patient did have a left hip ulceration noted to have a cellulitis to the left lower extremity also have a chronic indwelling Quezada catheter with a positive UA and blood cultures came back positive with gram-positive cocci. On today's evaluation that is 03/02/2023 the patient is afebrile, the patient is breathing comfortably on room air denies any chest pain or cough no nausea vomiting no abdominal pain and no diarrhea has been reported. Patient white count is down to 16.4 from initial high of 22,000 creatinine is 1.10 urine is growing gram-negative blood culture with the 2 out of 2 staph epi Objective - Vital Signs Vital signs: Vital Signs Temp 97.8 F 03/02/23 01:33 Pulse 78 03/02/23 07:56 Resp 17 03/02/23 07:56 BP 128/62 03/02/23 07:56 Pulse Ox 94 L 03/02/23 07:56 FiO2 Intake & Output 03/01/23 03/02/23 03/02/23 18:59 06:59 18:59 Intake Total 1675 Output Total 900 1000 Balance 775 -1000 Intake: Intake, IV Titration 1175 Amount Sodium Chloride 0.9% 1, 675 000 ml @ 75 mls/hr IV . [id number] [facility] Rx#:[id number] Vancomycin 1,750 mg In 500 Sodium Chloride 0.9% 500 ml 500 ml @ 167 mls/hr IVPB Q24HR@1200 [facility] Rx#: [id number] Oral 500 Output: Urine 900 1000 Uretheral (Quezada) 900 Other: Voiding Method Indwelling Catheter Indwelling Catheter # Bowel Movements 1 1 - Exam Elderly male lying in bed in no distress Respiratory system unlabored breathing decreased breath sound the base Heart S1-S2 regular Abdominal soft no tenderness Left leg is currently wrapped no drainage on the dressing Exam completed with the help of [employer] - Labs CBC & Chem 7: 03/02/23 07:28 03/02/23 07:28 Labs: Abnormal Lab Results - Last 24 Hours (Table) 03/01/23 03/01/23 03/01/23 Range/Units 06:36 06:36 06:36 WBC 12.14 H (4.50-10.00) X 10*3/uL RBC 4.09 L (4.40-5.60) X 10*6/uL Hgb 10.9 L (13.0-17.0) g/dL Hct 34.8 L (39.6-50.0) % MCH 26.7 L (27.0-32.0) pg MCHC 31.3 L (32.0-37.0) g/dL RDW 15.6 H (11.5-14.5) % Immature Gran # 0.06 H (0.00-0.04) X 10*3/uL Neutrophils # 9.79 H (1.80-7.70) X 10*3/uL Lymphocytes # (1.0-4.8) k/uL Eosinophils # 0.02 L (0.04-0.35) X 10*3/uL PT 25.2 H (9.9-11.9) sec INR 2.48 H (0.93-1.11) sec POC Glucose (mg/dL) (70-110) mg/dL Hemoglobin A1c 8.0 H (<=6.0) % 03/01/23 03/01/23 03/02/23 Range/Units 12:05 20:07 06:06 WBC (4.50-10.00) X 10*3/uL RBC (4.40-5.60) X 10*6/uL Hgb (13.0-17.0) g/dL Hct (39.6-50.0) % MCH (27.0-32.0) pg MCHC (32.0-37.0) g/dL RDW (11.5-14.5) % Immature Gran # (0.00-0.04) X 10*3/uL Neutrophils # (1.80-7.70) X 10*3/uL Lymphocytes # (1.0-4.8) k/uL Eosinophils # (0.04-0.35) X 10*3/uL PT (9.9-11.9) sec INR (0.93-1.11) sec POC Glucose (mg/dL) 216 H 131 H 66 L (70-110) mg/dL Hemoglobin A1c (<=6.0) % 03/02/23 Range/Units 07:28 WBC 16.4 H (4.50-10.00) X 10*3/uL RBC 3.98 L (4.40-5.60) X 10*6/uL Hgb 11.4 L (13.0-17.0) g/dL Hct 34.7 L (39.6-50.0) % MCH (27.0-32.0) pg MCHC (32.0-37.0) g/dL RDW (11.5-14.5) % Immature Gran # (0.00-0.04) X 10*3/uL Neutrophils # 14.7 H (1.80-7.70) X 10*3/uL Lymphocytes # 0.9 L (1.0-4.8) k/uL Eosinophils # (0.04-0.35) X 10*3/uL PT (9.9-11.9) sec INR (0.93-1.11) sec POC Glucose (mg/dL) (70-110) mg/dL Hemoglobin A1c (<=6.0) % Microbiology - Last 24 Hours (Table) 02/28/23 13:02 Blood Culture Gram Stain - Preliminary Blood Blood Culture - Preliminary Coagulase Negative Staph 02/28/23 13:02 Blood Culture Gram Stain - Preliminary Blood Blood Culture - Preliminary Coagulase Negative Staph 02/28/23 18:12 Urine Culture - Preliminary Urine,Voided Gram Neg Bacilli Assessment and Plan (1) Left leg cellulitis Current Visit: Yes Status: Acute Code(s): L03.116 - CELLULITIS OF LEFT LOWER LIMB SNOMED Code(s): 19784739622086269 (2) UTI (urinary tract infection) Current Visit: Yes Status: Acute Code(s): N39.0 - URINARY TRACT INFECTION, SITE NOT SPECIFIED SNOMED Code(s): 63593081 (3) Positive blood culture Current Visit: Yes Status: Acute Code(s): R78.81 - BACTEREMIA SNOMED Code(s): 637845828 (4) Leukocytosis Current Visit: Yes Status: Acute Code(s): D72.829 - ELEVATED WHITE BLOOD CELL COUNT, UNSPECIFIED SNOMED Code(s): 624630066 (5) Ulcer of left foot Current Visit: No Status: Acute Code(s): L97.529 - NON-PRESSURE CHRONIC ULCER OTH PRT LEFT FOOT W UNSP SEVERITY SNOMED Code(s): 313053218 Plan: 1patient was in the hospital with elevated white count source is likely left heel wound with secondary cellulitis in this patient with likely stage III pressure ulcer at the wound base did have some slough tissue like responsible for cellulitis to the left lower extremity likely from gram-positive skin [place] 2positive blood culture 2 out of 2 staph epi question of contamination was rela adelfo to his left lower extremity cellulitis blood cultures will be repeated document clearance 3-patient to continuevancomycin pharmacy to dose target trough of 15 while watching kidney function and Vanco trough closely 4local wound care with the Santyl followed by moist dressing keep the area of the pressure 5-positive urine culture with gram-negative bacilli question of Quezada colonization versus cath versus UTI especially with elevated white count we will change his Quezada catheter obtain urine culture from the new Quezada Zosyn adjusted to Unasyn to decrease risk of nephrotoxicity with vancomycin antibiotic adjusted further on the basis of culture report Dictation was produced using [employer] dictation software. please excuse any grammatical, word or spelling errors. Time with Patient: Greater than 30
[2023-03-02] MEDS: AMPICILLIN-SULBACTAM 3 GM in SODIUM CHLORIDE 0.9% 100 ML IVPB SCH (11:11)
[2023-03-02] MEDS: CALCIUM ACETATE 667 MG TAB PO SCH (11:12)
[2023-03-02 11:22] LABS: Erythrocyte Sedimentation Rate 20 mm/Hr (0-20)
[2023-03-02 11:32] LABS: Appearance,Urine Cloudy (Clear); Bacteria,Urine Occasional /hpf; Bilirubin,Urine Negative (Negative); Blood,Urine Moderate (Negative); Budding Yeast,Urine Few /hpf; Calcium Oxalate Crystals,Urine Few /hpf; Color,Urine Yellow; Cystine Crystals,Urine Positive /hpf (None Seen); Glucose,Urine (UA) Negative (Negative); Ketones,Urine Negative (Negative); Leukocyte Esterase,Urine Moderate (Negative); Mucus,Urine Rare /hpf; Nitrite,Urine Negative (Negative); Protein,Urine 2+ (Negative); RBC,Urine 121 /hpf (0-5); Specific Gravity,Urine 1.025 (1.001-1.035); Urobilinogen,Urine <2.0 mg/dL (<2.0); WBC,Urine 69 /hpf (0-5)
[2023-03-02 11:40] LABS: Glucose,Whole Blood 82 mg/dL (70-110)
[2023-03-02] MEDS: GABAPENTIN 100 MG CAP PO SCH (13:52)
[2023-03-02 16:54] LABS: Glucose,Whole Blood 108 mg/dL (70-110)
[2023-03-02] MEDS: WARFARIN 2 MG TAB PO ONE (17:37)
[2023-03-02] MEDS: HYDROcodone/APAP 10-325MG 1 EACH TAB PO PRN (19:45)
[2023-03-02] MEDS: POTASSIUM CHLORIDE ER 20 MEQ TAB.ER PO STA (19:45)
[2023-03-02] MEDS: POTASSIUM CHLORIDE 10 MEQ in WATER FOR INJECTION 1 100ML.BAG IVPB SCH (20:03)
[2023-03-02 21:20] LABS: Glucose,Whole Blood 127 mg/dL (70-110)
--- NOTE | 2023-03-03 01:19 | P.PN ---
Subjective Progress Note Date: 03/01/23 Patient is a 78-year-old male with a known history of coronary artery disease status post stent placement, atrial fibrillation on anticoagulation with Coumadin, hypertension, diabetes type 2 insulin-dependent, hyperlipidemia, COPD, gout and dementia who is currently at snf was sent to hospital due to worsening leukocytosis. Patient discharged from hospital recently on 02/09/2023 after treatment for left heel diabetic foot ulcer and surrounding cellulitis. Patient does have indwelling Quezada catheter. Cognitive impairment and could not provide much history. Patient's daughter is at bedside. Otherwise patient does not have any fever or chills. Denies any abdominal pain. No nausea vomiting or diarrhea. Chest x-ray showed no acute cardiopulmonary process/disease. Ankle x-ray showed 7 mm ossific density at the distal Achilles tendon on with mild thickening. Consider chronic insertional tendinopathy. Sequela of old injury to the medial malleolus. No vaughn lytic destruction identified to clearly indicate osteomyelitis. Laboratory data showed WBC 22.0 hemoglobin 13.0 and platelets 284 Sodium 136 potassium 3.9 chloride 97 bicarb is 31 BUN 60 and creatinine 1.68 and blood sugar 197. Liver enzymes are not elevated. Albumin 3.4 Urinalysis showed large leukocyte esterase nitrite positive with elevated WBCs 13 and occasional bacteria. Influenza A, B, RSV and COVID-19 PCR not detected. Recent urine cultures from 02/25/2023 showed gram-negative bacilli. 03/01/2023 Patient is lying in the bed. Awake alert and oriented x 1-2. Mentation is at baseline. Currently patient is room air. No complaints of leg pain. Patient does have indwelling Quezada catheter. Blood cultures showed gram- positive cocci and patient was started on vancomycin. Urine culture is pending. Patient has been afebrile. Wound care is following Patient remains on broad-spectrum antibiotics. ID is on board. Laboratory data showed WBC trending down to 22.0 hemoglobin 13.0 and platelets 284. Sodium 136 potassium 3.9 chloride 97 bicarb is 31 BUN 16 creatinine 1.68 and blood sugar 197. Urinalysis showed large leukocyte esterase with elevated WBC count. Patient does have chronic indwelling Quezada catheter. Current medications reviewed. Objective - Vital Signs Vital signs: Vital Signs Temp 97.9 F 03/01/23 19:57 Pulse 72 03/01/23 19:57 Resp 14 03/01/23 19:57 BP 158/76 03/01/23 19:57 Pulse Ox 99 03/01/23 19:57 FiO2 Intake & Output 03/01/23 03/01/23 03/02/23 06:59 18:59 06:59 Intake Total 1675 Output Total 1250 900 400 Balance -1250 775 -400 Intake: Intake, IV Titration 1175 Amount Sodium Chloride 0.9% 1, 675 000 ml @ 75 mls/hr IV . [id number] [facility] Rx#:[id number] Vancomycin 1,750 mg In 500 Sodium Chloride 0.9% 500 ml 500 ml @ 167 mls/hr IVPB Q24HR@1200 [facility] Rx#: [id number] Oral 500 Output: Urine 1250 900 400 Uretheral (Quezada) 900 Other: Voiding Method Indwelling Catheter # Voids 2 # Bowel Movements 1 1 - Exam PHYSICAL EXAMINATION: Patient is lying in the bed comfortably, no acute distress, awake alert and oriented x 1-2.. HEENT: Normocephalic. Neck is supple. Pupils reactive. Nostrils clear. Oral cavity is moist. Neck reveals no JVD, carotid bruits, or thyromegaly. CHEST EXAMINATION: Trachea is central. Symmetrical expansion. Lung sousa clear to auscultation and percussion. CARDIAC: Normal S1, S2 with no gallops. No murmurs ABDOMEN: Soft. Bowel sounds present. Nontender. No organomegaly. No abdominal bruits. Extremities: reveal no edema. Left heel ulcer without discharge. No clubbing or cyanosis Neurologically awake, alert, oriented x 1-2 able to move all 4 extremities. No gross focal neurological deficit. Skin: No rash or skin lesions. Psychiatric: Coperative. Could not be assessed completely. Musculoskeletal: No joint swelling or deformity. - Labs CBC & Chem 7: 03/02/23 07:28 03/02/23 07:28 Labs: Abnormal Lab Results - Last 24 Hours (Table) 03/01/23 03/01/23 03/01/23 Range/Units 01:21 06:36 06:36 WBC 12.14 H (4.50-10.00) X 10*3/uL RBC 4.09 L (4.40-5.60) X 10*6/uL Hgb 10.9 L (13.0-17.0) g/dL Hct 34.8 L (39.6-50.0) % MCH 26.7 L (27.0-32.0) pg MCHC 31.3 L (32.0-37.0) g/dL RDW 15.6 H (11.5-14.5) % Immature Gran # 0.06 H (0.00-0.04) X 10*3/uL Neutrophils # 9.79 H (1.80-7.70) X 10*3/uL Eosinophils # 0.02 L (0.04-0.35) X 10*3/uL PT 29.3 H (10.0-12.5) sec INR 3.0 H (<1.2) POC Glucose (mg/dL) (70-110) mg/dL Hemoglobin A1c 8.0 H (<=6.0) % 03/01/23 03/01/23 03/01/23 Range/Units 06:36 07:30 12:05 WBC (4.50-10.00) X 10*3/uL RBC (4.40-5.60) X 10*6/uL Hgb (13.0-17.0) g/dL Hct (39.6-50.0) % MCH (27.0-32.0) pg MCHC (32.0-37.0) g/dL RDW (11.5-14.5) % Immature Gran # (0.00-0.04) X 10*3/uL Neutrophils # (1.80-7.70) X 10*3/uL Eosinophils # (0.04-0.35) X 10*3/uL PT 25.2 H (10.0-12.5) sec INR 2.48 H (<1.2) POC Glucose (mg/dL) 199 H 216 H (70-110) mg/dL Hemoglobin A1c (<=6.0) % 03/01/23 Range/Units 20:07 WBC (4.50-10.00) X 10*3/uL RBC (4.40-5.60) X 10*6/uL Hgb (13.0-17.0) g/dL Hct (39.6-50.0) % MCH (27.0-32.0) pg MCHC (32.0-37.0) g/dL RDW (11.5-14.5) % Immature Gran # (0.00-0.04) X 10*3/uL Neutrophils # (1.80-7.70) X 10*3/uL Eosinophils # (0.04-0.35) X 10*3/uL PT (10.0-12.5) sec INR (<1.2) POC Glucose (mg/dL) 131 H (70-110) mg/dL Hemoglobin A1c (<=6.0) % Microbiology - Last 24 Hours (Table) 02/28/23 13:02 Blood Culture Gram Stain - Preliminary Blood 02/28/23 13:02 Blood Culture Gram Stain - Preliminary Blood Assessment and Plan Assessment: Acute urinary tract infection. Urine cultures from 02/25/2023 showed gram- negative bacilli.Patient does have indwelling Quezada catheter. Recent diabetic left heel ulcer with surrounding cellulitis s/p antibiotic treatment course Worsening leukocytosis. Possible right heel ulcer versus UTI. Acute kidney injury likely prerenal creatinine 1.68 and baseline 1.1 Recent diabetic left heel ulcer with surrounding cellulitis s/p antibiotic treatment course Generalized weakness and unable to ambulate without support. Hyperglycemia with uncontrolled diabetes type 2 insulin-dependent Paroxysmal atrial fibrillation on anticoagulation with Coumadin Coronary arteries with history of stent placement Hypertension Hyperlipidemia Dementia/cognitive impairment Stage II sacral decub ulcers. DVT prophylaxis patient is already on Coumadin. Follow-up INR level. Plan: Patient be continued on IV antibiotics. Currently on vancomycin due to gram- positive bacteremia and is also on Zosyn. Leukocytosis trending down. Follow-up urine cultures and final blood culture report. Start back on blood pressure medications. Clonidine is on hold due to bradycardia. Continue with metoprolol and warfarin pharmacy dosing. Limit narcotic pain medications. Follow-up renal function. ID is on board. Prognosis is guarded at this time. Discussed with his daughter at bedside in detail. Time with Patient: Greater than 30
--- NOTE | 2023-03-03 01:24 | P.PN ---
Subjective Progress Note Date: 03/02/23 Patient is a 78-year-old male with a known history of coronary artery disease status post stent placement, atrial fibrillation on anticoagulation with Coumadin, hypertension, diabetes type 2 insulin-dependent, hyperlipidemia, COPD, gout and dementia who is currently at senior living was sent to hospital due to worsening leukocytosis. Patient discharged from hospital recently on 02/09/2023 after treatment for left heel diabetic foot ulcer and surrounding cellulitis. Patient does have indwelling Quezada catheter. Cognitive impairment and could not provide much history. Patient's daughter is at bedside. Otherwise patient does not have any fever or chills. Denies any abdominal pain. No nausea vomiting or diarrhea. Chest x-ray showed no acute cardiopulmonary process/disease. Ankle x-ray showed 7 mm ossific density at the distal Achilles tendon on with mild thickening. Consider chronic insertional tendinopathy. Sequela of old injury to the medial malleolus. No vaughn lytic destruction identified to clearly indicate osteomyelitis. Laboratory data showed WBC 22.0 hemoglobin 13.0 and platelets 284 Sodium 136 potassium 3.9 chloride 97 bicarb is 31 BUN 60 and creatinine 1.68 and blood sugar 197. Liver enzymes are not elevated. Albumin 3.4 Urinalysis showed large leukocyte esterase nitrite positive with elevated WBCs 13 and occasional bacteria. Influenza A, B, RSV and COVID-19 PCR not detected. Recent urine cultures from 02/25/2023 showed gram-negative bacilli. 03/01/2023 Patient is lying in the bed. Awake alert and oriented x 1-2. Mentation is at baseline. Currently patient is room air. No complaints of leg pain. Patient does have indwelling Quezada catheter. Blood cultures showed gram- positive cocci and patient was started on vancomycin. Urine culture is pending. Patient has been afebrile. Wound care is following Patient remains on broad-spectrum antibiotics. ID is on board. Laboratory data showed WBC trending down to 22.0 hemoglobin 13.0 and platelets 284. Sodium 136 potassium 3.9 chloride 97 bicarb is 31 BUN 16 creatinine 1.68 and blood sugar 197. Urinalysis showed large leukocyte esterase with elevated WBC count. Patient does have chronic indwelling Quezada catheter. 03/02/2023 Patient is currently resting in the bed. Awake alert and mentation is at baseline.. Currently on room air. The patient has been afebrile. No complaints of chest pain or shortness of breath. No nausea vomiting or diarrhea noted. Patient is being continued on vancomycin due to gram-positive bacteremia. Turnout to be coagulase-negative staph. Antibiotics otherwise changed to Unasyn as per ID recommendations. Repeat urinalysis was ordered. Initial urine culture is showing gram-negative bacilli. ID is on board. Current medications reviewed. Objective - Vital Signs Vital signs: Vital Signs Temp 98.3 F 03/02/23 13:59 Pulse 94 03/02/23 20:00 Resp 17 03/02/23 20:00 BP 156/70 03/02/23 20:00 Pulse Ox 97 03/02/23 20:00 FiO2 Intake & Output 03/02/23 03/02/23 03/03/23 06:59 18:59 06:59 Output Total 1000 250 Balance -1000 -250 Output: Urine 1000 250 Other: Voiding Method Indwelling Catheter Indwelling Catheter # Bowel Movements 1 2 - Exam PHYSICAL EXAMINATION: Patient is lying in the bed comfortably, no acute distress, awake alert and oriented x 1-2.. HEENT: Normocephalic. Neck is supple. Pupils reactive. Nostrils clear. Oral cavity is moist. Neck reveals no JVD, carotid bruits, or thyromegaly. CHEST EXAMINATION: Trachea is central. Symmetrical expansion. Lung sousa clear to auscultation and percussion. CARDIAC: Normal S1, S2 with no gallops. No murmurs ABDOMEN: Soft. Bowel sounds present. Nontender. No organomegaly. No abdominal bruits. Extremities: reveal no edema. Left heel ulcer without discharge. No clubbing or cyanosis Neurologically awake, alert, oriented x 1-2 able to move all 4 extremities. No gross focal neurological deficit. Skin: No rash or skin lesions. Psychiatric: Coperative. Could not be assessed completely. Musculoskeletal: No joint swelling or deformity. - Labs CBC & Chem 7: 03/02/23 07:28 03/02/23 07:28 Labs: Abnormal Lab Results - Last 24 Hours (Table) 03/02/23 03/02/23 03/02/23 Range/Units 06:06 07:28 07:28 WBC (3.8-10.6) k/uL RBC (4.30-5.90) m/uL Hgb (13.0-17.5) gm/dL Hct (39.0-53.0) % Neutrophils # (1.3-7.7) k/uL Lymphocytes # (1.0-4.8) k/uL PT 30.9 H (10.0-12.5) sec INR 3.1 H (<1.2) Potassium 2.9 L (3.5-5.1) mmol/L Chloride 109 H (98-107) mmol/L BUN 32 H (9-20) mg/dL POC Glucose (mg/dL) 66 L (70-110) mg/dL Calcium 8.1 L (8.4-10.2) mg/dL C-Reactive Protein 3.1 H (<1.0) mg/dL Urine Protein (Negative) Urine Blood (Negative) Ur Leukocyte Esterase (Negative) Urine RBC (0-5) /hpf Urine WBC (0-5) /hpf Urine WBC Clumps (None) /hpf Calcium Oxalate Crystal (None) /hpf Cystine Crystals (None Seen) /hpf Urine Bacteria (None) /hpf Urine Mucus (None) /hpf Urine Yeast (Budding) (None) /hpf 03/02/23 03/02/23 03/02/23 Range/Units 07:28 11:13 21:19 WBC 16.4 H (3.8-10.6) k/uL RBC 3.98 L (4.30-5.90) m/uL Hgb 11.4 L (13.0-17.5) gm/dL Hct 34.7 L (39.0-53.0) % Neutrophils # 14.7 H (1.3-7.7) k/uL Lymphocytes # 0.9 L (1.0-4.8) k/uL PT (10.0-12.5) sec INR (<1.2) Potassium (3.5-5.1) mmol/L Chloride (98-107) mmol/L BUN (9-20) mg/dL POC Glucose (mg/dL) 127 H (70-110) mg/dL Calcium (8.4-10.2) mg/dL C-Reactive Protein (<1.0) mg/dL Urine Protein 2+ H (Negative) Urine Blood Moderate H (Negative) Ur Leukocyte Esterase Moderate H (Negative) Urine RBC 121 H (0-5) /hpf Urine WBC 69 H (0-5) /hpf Urine WBC Clumps Moderate H (None) /hpf Calcium Oxalate Crystal Few H (None) /hpf Cystine Crystals Positive H (None Seen) /hpf Urine Bacteria Occasional H (None) /hpf Urine Mucus Rare H (None) /hpf Urine Yeast (Budding) Few H (None) /hpf Microbiology - Last 24 Hours (Table) 02/28/23 13:02 Blood Culture Gram Stain - Preliminary Blood Blood Culture - Preliminary Coagulase Negative Staph 02/28/23 13:02 Blood Culture Gram Stain - Preliminary Blood Blood Culture - Preliminary Coagulase Negative Staph 02/28/23 18:12 Urine Culture - Preliminary Urine,Voided Gram Neg Bacilli Assessment and Plan Assessment: Acute urinary tract infection. Urine cultures from 02/25/2023 showed gram- negative bacilli.Patient does have indwelling Quezada catheter. Recent diabetic left heel ulcer stage 3 with surrounding cellulitis . continue antibiotic treatment course Worsening leukocytosis. Possible right heel ulcer versus UTI. Acute kidney injury likely prerenal creatinine 1.68 and baseline 1.1 Recent diabetic left heel ulcer with surrounding cellulitis s/p antibiotic treatment course Generalized weakness and unable to ambulate without support. Hyperglycemia with uncontrolled diabetes type 2 insulin-dependent Paroxysmal atrial fibrillation on anticoagulation with Coumadin Coronary arteries with history of stent placement Hypertension Hyperlipidemia Dementia/cognitive impairment Stage II sacral decub ulcers. DVT prophylaxis patient is already on Coumadin. Follow-up INR level. Plan: Patient be continued on IV antibiotics. Currently on vancomycin due to gram- positive bacteremia and is also on Zosyn,. Changed to Unasyn. Leukocytosis trending down. Initial urine culture showed gram-negative bacilli. Quezada catheter was replaced and repeat urine culture was obtained.. Start back on blood pressure medications. Clonidine is on hold due to bradycardia. Continue with metoprolol and warfarin pharmacy dosing. Limit narcotic pain medications. Follow-up renal function. ID is on board. Prognosis is guarded at this time. Discussed with his daughter at bedside in detail. Time with Patient: Greater than 30
[2023-03-03] MEDS: COLLAGENASE 250 UNIT/GM OINTMENT 30 GM TUBE TOPICAL SCH (06:19)
[2023-03-03 06:29] LABS: Glucose,Whole Blood 69 mg/dL (70-110)
[2023-03-03 06:46] LABS: African American GFR (CKD) >90 (>60 ml/min/1.73 sqM); Anion Gap 5 mmol/L; Blood Urea Nitrogen 18 mg/dL (9-20); Calcium 8.3 mg/dL (8.4-10.2); Carbon Dioxide 23 mmol/L (22-30); Chloride 117 mmol/L (98-107); Glucose 65 mg/dL (74-99); Non-African American GFR(CKD) 82 (>60 ml/min/1.73 sqM); Potassium 3.3 mmol/L (3.5-5.1); Sodium 145 mmol/L (137-145)
[2023-03-03] MEDS: COLLAGENASE 250 UNIT/GM OINTMENT 30 GM TUBE TOPICAL PRN (07:12)
[2023-03-03 07:37] LABS: Prothrombin Time 39.6 sec (10.0-12.5)
[2023-03-03] MEDS: POTASSIUM CHLORIDE ER 20 MEQ TAB.ER PO SCH (09:41)
[2023-03-03] MEDS: amLODIPine 5 MG TAB PO SCH (09:41)
[2023-03-03 11:19] LABS: Basophils % (A) 0 %; Eosinophils # (A) 0.1 k/uL (0-0.7); Eosinophils % (A) 0 %; HCT 30.1 % (39.0-53.0); Hypochromasia Moderate; Lymphocytes # (A) 1.2 k/uL (1.0-4.8); Lymphocytes % (A) 7 %; MCH 28.6 pg (25.0-35.0); MCHC 32.5 g/dL (31.0-37.0); MCV 88.1 fL (80.0-100.0); Mean Platelet Volume 8.1; Monocytes # (A) 0.7 k/uL (0-1.0); Monocytes % (A) 4 %; Neutrophils # (A) 15.5 k/uL (1.3-7.7); Neutrophils % (A) 88 %; Platelet Count 170 k/uL (150-450); RBC 3.42 m/uL (4.30-5.90); RDW 15.6 % (11.5-15.5); WBC 17.5 k/uL (3.8-10.6)
[2023-03-03] MEDS: VANCOMYCIN TROUGH DUE 1 EACH MISC MISCELLANE ONE (11:26)
[2023-03-03 11:33] LABS: HGB 9.8 gm/dL (13.0-17.5)
[2023-03-03 11:35] VITALS: BMI 31.0
[2023-03-03 11:41] LABS: Glucose,Whole Blood 62 mg/dL (70-110)
[2023-03-03 11:59] LABS: Glucose,Whole Blood 73 mg/dL (70-110)
[2023-03-03 12:09] LABS: African American GFR (CKD) >90 (>60 ml/min/1.73 sqM); Anion Gap 1 mmol/L; Blood Urea Nitrogen 16 mg/dL (9-20); Calcium 7.8 mg/dL (8.4-10.2); Carbon Dioxide 27 mmol/L (22-30); Chloride 115 mmol/L (98-107); Glucose 66 mg/dL (74-99); Non-African American GFR(CKD) 78 (>60 ml/min/1.73 sqM); Potassium 3.3 mmol/L (3.5-5.1); Sodium 143 mmol/L (137-145)
[2023-03-03 16:49] LABS: Glucose,Whole Blood 90 mg/dL (70-110)
[2023-03-03] MEDS: WARFARIN 0.5 MG TAB PO ONE (17:44)
--- NOTE | 2023-03-03 18:50 | P.PN ---
Subjective Patient is a 78-year-old male with a known history of coronary artery disease status post stent placement, atrial fibrillation on anticoagulation with Coumadin, hypertension, diabetes type 2 insulin-dependent, hyperlipidemia, COPD, gout and dementia who is currently at senior living was sent to hospital due to worsening leukocytosis. Patient discharged from hospital recently on 02/09/2023 after treatment for left heel diabetic foot ulcer and surrounding cellulitis. Patient does have indwelling Quezada catheter. Cognitive impairment and could not provide much history. Patient's daughter is at bedside. Otherwise patient does not have any fever or chills. Denies any abdominal pain. No nausea vomiting or diarrhea. Chest x-ray showed no acute cardiopulmonary process/disease. Ankle x-ray showed 7 mm ossific density at the distal Achilles tendon on with mild thickening. Consider chronic insertional tendinopathy. Sequela of old injury to the medial malleolus. No vaughn lytic destruction identified to clearly indicate osteomyelitis. Laboratory data showed WBC 22.0 hemoglobin 13.0 and platelets 284 Sodium 136 potassium 3.9 chloride 97 bicarb is 31 BUN 60 and creatinine 1.68 and blood sugar 197. Liver enzymes are not elevated. Albumin 3.4 Urinalysis showed large leukocyte esterase nitrite positive with elevated WBCs 13 and occasional bacteria. Influenza A, B, RSV and COVID-19 PCR not detected. Recent urine cultures from 02/25/2023 showed gram-negative bacilli. 03/01/2023 Patient is lying in the bed. Awake alert and oriented x 1-2. Mentation is at baseline. Currently patient is room air. No complaints of leg pain. Patient does have indwelling Quezada catheter. Blood cultures showed gram- positive cocci and patient was started on vancomycin. Urine culture is pending. Patient has been afebrile. Wound care is following Patient remains on broad-spectrum antibiotics. ID is on board. Laboratory data showed WBC trending down to 22.0 hemoglobin 13.0 and platelets 284. Sodium 136 potassium 3.9 chloride 97 bicarb is 31 BUN 16 creatinine 1.68 and blood sugar 197. Urinalysis showed large leukocyte esterase with elevated WBC count. Patient does have chronic indwelling Quezada catheter. 03/02/2023 Patient is currently resting in the bed. Awake alert and mentation is at baseline.. Currently on room air. The patient has been afebrile. No complaints of chest pain or shortness of breath. No nausea vomiting or diarrhea noted. Patient is being continued on vancomycin due to gram-positive bacteremia. Turnout to be coagulase-negative staph. Antibiotics otherwise changed to Unasyn as per ID recommendations. Repeat urinalysis was ordered. Initial urine culture is showing gram-negative bacilli. ID is on board. 03/03/2023 Patient is mildly confused especially about time, he knows he is in hospital in [place] and he couldn't tell the name of the president He is admitted with left leg cellulitis and currently is covered with IV vancomycin and Unasyn No wound culture There was suspicion of UTI and urine culture is growing gram-negative bacilli He has positive blood culture 2 suspicious for contamination versus infection. No heart murmur is heard No evidence of bleeding. However his INR still high 4.0 today, hemoglobin went down to 11.4 down to 9.8 Going to repeat hemoglobin tonight and do anemia workup. C2 this morning and Levemir 15 units lower to 12 units Review of systems CONSTITUTIONAL: No fever, no malaise, no fatigue. HEENT: No recent visual problems or hearing problems. Denied any sore throat. CARDIOVASCULAR: No orthopnea, PND, no palpitations, no syncope. PULMONARY: No shortness of breath, no cough, no hemoptysis. GASTROINTESTINAL: No diarrhea, no nausea, no vomiting, no abdominal pain. Normoactive bowel sounds. Active Medications Generic Name Dose Route Start Last Admin Trade Name Freq PRN Reason Stop Dose Admin Acetaminophen 650 mg 02/28/23 22:32 03/02/23 00:03 Acetaminophen Tab 325 Mg Tab PO 650 mg Q4H PRN Administration Fever and/ or Pain Hydrocodone Bitart/Acetaminophen 1 each 03/02/23 08:15 03/02/23 19:45 Hydrocodone/Apap 10-325mg 1 Each Tab PO 1 each Q6HR PRN Administration Pain Amlodipine Besylate 5 mg 03/03/23 09:00 03/03/23 09:41 Amlodipine 5 Mg Tab PO 5 mg BID@0900,2100 PRASANNA Administration Atorvastatin Calcium 80 mg 03/01/23 21:00 03/02/23 21:27 Atorvastatin 80 Mg Tab PO 80 mg HS@2100 PRASANNA Administration Buspirone HCl 15 mg 03/02/23 09:00 03/03/23 09:41 Buspirone Hcl 5 Mg Tab PO 15 mg DAILY@0900 PRASANNA Administration Calcium Acetate 667 mg 03/02/23 12:00 03/03/23 18:24 Calcium Acetate 667 Mg Tab PO 667 mg TID@0800,1200,1700 PRASANNA Administration Collagenase 1 applic 03/02/23 08:15 03/03/23 07:12 Collagenase 250 Unit/Gm Ointment 30 Gm Tube TOPICAL 1 applic DAILY PRN Administration LEFT HEEL WOUND Protocol Collagenase 1 applic 03/02/23 21:00 03/03/23 06:19 Collagenase 250 Unit/Gm Ointment 30 Gm Tube TOPICAL Not Given HS PRASANNA Protocol Dextrose/Water 25 ml 02/28/23 22:34 Dextrose 50% Syringe 50 Ml IVP PER PROTOCOL PRN Hypoglycemia Protocol Dextrose/Water 50 ml 02/28/23 22:34 Dextrose 50% Syringe 50 Ml IVP PER PROTOCOL PRN Hypoglycemia Protocol Donepezil HCl 10 mg 03/01/23 21:00 03/02/23 21:27 Donepezil 10 Mg Tab PO 10 mg HS@2100 PRASANNA Administration Gabapentin 200 mg 03/02/23 14:00 03/03/23 14:32 Gabapentin 100 Mg Cap PO 200 mg TID@0600,1400,2200 PRASANNA Administration Haloperidol Lactate 2 mg 03/02/23 00:29 Haloperidol Lactate 5 Mg/Ml 1 Ml Vial IM Q4HR PRN Agitation or Acute Psychosis Sodium Chloride 1,000 mls @ 75 mls/hr 02/28/23 15:00 03/02/23 23:49 Saline 0.9% IV 75 mls/hr .[id number] PRASANNA Administration Ampicillin Sodium/Sulbactam 100 mls @ 200 mls/hr 03/02/23 12:00 03/03/23 18:23 Sodium 3 gm/ Sodium Chloride IVPB 200 mls/hr Q6HR PRASANNA Administration Protocol Vancomycin HCl 1,500 mg/ 500 mls @ 167 mls/hr 03/04/23 15:00 Sodium Chloride IVPB Q24HR@1500 [facility] Insulin Aspart 0 unit 03/01/23 07:30 03/03/23 17:23 Insulin Aspart (Novolog) 100 Unit/Ml Vial SQ Not Given ACHS [facility] Protocol Insulin Detemir 12 unit 03/03/23 21:00 Insulin Detemir (Levemir) 100 Unit/Ml Syr SQ HS@2100 [facility] Metoprolol Tartrate 50 mg 03/01/23 09:00 03/03/23 09:41 Metoprolol Tartrate 50 Mg Tab PO 50 mg DAILY@0900 PRASANNA Administration Miscellaneous Information 0 each 03/01/23 02:32 Warfarin Per Pharmacy MISCELLANE DIRECTED PRN PER PROTOCOL Naloxone HCl 0.2 mg 02/28/23 14:53 Naloxone 0.4 Mg/Ml 1 Ml Vial IV Q2M PRN Opioid Reversal Pantoprazole Sodium 40 mg 03/01/23 07:30 03/03/23 06:18 Pantoprazole 40 Mg Tablet PO 40 mg [id number] PRASANNA Administration Petrolatum 1 applic 03/01/23 23:25 03/01/23 23:44 Zinc Oxide Paste (Z-Guard) 1 Applic TOPICAL 1 applic Q2HR PRN Administration Wound Healing Protocol Potassium Chloride 20 meq 03/03/23 09:00 03/03/23 09:41 Potassium Chloride Er 20 Meq Tab.Er PO 03/04/23 09:01 20 meq BID PRASANNA Administration Quetiapine Fumarate 25 mg 03/02/23 00:30 03/02/23 21:27 Quetiapine 25 Mg Tab PO 25 mg HS PRASANNA Administration Objective - Vital Signs Vital signs: Vital Signs Temp 97.6 F 03/03/23 08:00 Pulse 98 03/03/23 08:00 Resp 20 03/03/23 08:00 BP 166/69 03/03/23 08:00 Pulse Ox 97 03/03/23 08:00 FiO2 Intake & Output 03/02/23 03/03/23 03/03/23 18:59 06:59 18:59 Intake Total 540 Output Total 250 Balance -250 540 Weight 95.254 kg Intake: Oral 540 Output: Urine 250 Other: Voiding Method Indwelling Catheter Indwelling Catheter Indwelling Catheter # Bowel Movements 2 - Exam -GENERAL: The patient is alert and oriented x2-3, not in any acute distress. Well developed, well nourished. HEENT: Pupils are round and equally reacting to light. EOMI. No scleral icterus. No conjunctival pallor. Normocephalic, atraumatic. No pharyngeal erythema. No thyromegaly. CARDIOVASCULAR: S1 and S2 present. No murmurs, rubs, or gallops. PULMONARY: Chest is clear to auscultation, no wheezing , no crackles. ABDOMEN: Soft, nontender, nondistended, normoactive bowel sounds. No palpable organomegaly. MUSCULOSKELETAL: No joint swelling or deformity. -EXTREMITIES: No cyanosis, clubbing, or pedal edema. Left leg cellulitis NEUROLOGICAL: Gross neurological examination did not reveal any focal deficits. SKIN: No rashes. no petechiae. - Labs CBC & Chem 7: 03/03/23 10:54 03/03/23 10:54 Labs: Abnormal Lab Results - Last 24 Hours (Table) 03/02/23 03/03/23 03/03/23 Range/Units 21:19 05:52 06:03 WBC (3.8-10.6) k/uL RBC (4.30-5.90) m/uL Hgb (13.0-17.5) gm/dL Hct (39.0-53.0) % RDW (11.5-15.5) % Neutrophils # (1.3-7.7) k/uL PT (10.0-12.5) sec INR (<1.2) Potassium 3.3 L (3.5-5.1) mmol/L Chloride 117 H (98-107) mmol/L Glucose 65 L (74-99) mg/dL POC Glucose (mg/dL) 127 H 69 L (70-110) mg/dL Calcium 8.3 L (8.4-10.2) mg/dL 03/03/23 03/03/23 03/03/23 Range/Units 06:45 10:54 10:54 WBC 17.5 H (3.8-10.6) k/uL RBC 3.42 L (4.30-5.90) m/uL Hgb 9.8 L D (13.0-17.5) gm/dL Hct 30.1 L (39.0-53.0) % RDW 15.6 H (11.5-15.5) % Neutrophils # 15.5 H (1.3-7.7) k/uL PT 39.6 H (10.0-12.5) sec INR 4.0 H (<1.2) Potassium 3.3 L (3.5-5.1) mmol/L Chloride 115 H (98-107) mmol/L Glucose 66 L (74-99) mg/dL POC Glucose (mg/dL) (70-110) mg/dL Calcium 7.8 L (8.4-10.2) mg/dL 03/03/23 Range/Units 11:39 WBC (3.8-10.6) k/uL RBC (4.30-5.90) m/uL Hgb (13.0-17.5) gm/dL Hct (39.0-53.0) % RDW (11.5-15.5) % Neutrophils # (1.3-7.7) k/uL PT (10.0-12.5) sec INR (<1.2) Potassium (3.5-5.1) mmol/L Chloride (98-107) mmol/L Glucose (74-99) mg/dL POC Glucose (mg/dL) 62 L (70-110) mg/dL Calcium (8.4-10.2) mg/dL Microbiology - Last 24 Hours (Table) 03/02/23 07:28 Blood Culture - Preliminary Blood 02/28/23 13:02 Blood Culture Gram Stain - Final Blood Blood Culture - Final Staphylococcus epidermidis 02/28/23 13:02 Blood Culture Gram Stain - Final Blood Blood Culture - Final Staphylococcus epidermidis 03/02/23 06:15 Gram Stain - Preliminary Foot - Left Assessment and Plan Assessment: diabetic left heel ulcer stage 3 with surrounding cellulitis . Acute urinary tract infection. Urine culture: showed gram-negative bacilli.Patient does have indwelling Quezada catheter. Worsening leukocytosis. Possible right heel ulcer versus UTI. Coagulopathy secondary to high INR Anemia, with worsening hemoglobin Acute kidney injury likely prerenal creatinine 1.68 and baseline 1.1 proved Generalized weakness and unable to ambulate without support. Hypoglycemia with uncontrolled diabetes type 2 insulin-dependent Paroxysmal atrial fibrillation on anticoagulation with Coumadin Coronary arteries with history of stent placement Hypertension Hyperlipidemia Dementia/cognitive impairment Stage II sacral decub ulcers. Plan: Continue with Unasyn and IV vancomycin Follow-up repeat blood culture Infectious disease consult on the window caser INR and hemoglobin Anemia workup Labs and medication were reviewed.. Continue same treatment. Continue with symptomatic treatment. Resume home medication. Monitor labs and vitals. DVT and GI prophylaxis. Further recommendations as per clinical course of the patient DVT prophylaxis: on Coumadin GI Prophylaxis: Ppi PT/OT: Pending Prognosis is guarded
[2023-03-03 20:11] LABS: Glucose,Whole Blood 150 mg/dL (70-110)
[2023-03-03] MEDS: INSULIN DETEMIR (LEVEMIR) 100 UNIT/ML SYR SQ SCH (20:30)
[2023-03-03 20:35] LABS: HCT 31.4 % (39.0-53.0); Hypochromasia Slight; MCH 28.1 pg (25.0-35.0); MCHC 31.8 g/dL (31.0-37.0); MCV 88.4 fL (80.0-100.0); Mean Platelet Volume 8.1; Platelet Count 172 k/uL (150-450); RBC 3.56 m/uL (4.30-5.90); RDW 15.8 % (11.5-15.5); WBC 16.6 k/uL (3.8-10.6)
[2023-03-04 02:22] LABS: Glucose,Whole Blood 76 mg/dL (70-110)
[2023-03-04 06:07] LABS: Glucose,Whole Blood 75 mg/dL (70-110)
--- NOTE | 2023-03-04 10:09 | P.PN ---
Subjective Patient is a 78-year-old male with a known history of coronary artery disease status post stent placement, atrial fibrillation on anticoagulation with Coumadin, hypertension, diabetes type 2 insulin-dependent, hyperlipidemia, COPD, gout and dementia who is currently at residential was sent to hospital due to worsening leukocytosis. Patient discharged from hospital recently on 02/09/2023 after treatment for left heel diabetic foot ulcer and surrounding cellulitis. Patient does have indwelling Quezada catheter. Cognitive impairment and could not provide much history. Patient's daughter is at bedside. Otherwise patient does not have any fever or chills. Denies any abdominal pain. No nausea vomiting or diarrhea. Chest x-ray showed no acute cardiopulmonary process/disease. Ankle x-ray showed 7 mm ossific density at the distal Achilles tendon on with mild thickening. Consider chronic insertional tendinopathy. Sequela of old injury to the medial malleolus. No vaughn lytic destruction identified to clearly indicate osteomyelitis. Laboratory data showed WBC 22.0 hemoglobin 13.0 and platelets 284 Sodium 136 potassium 3.9 chloride 97 bicarb is 31 BUN 60 and creatinine 1.68 and blood sugar 197. Liver enzymes are not elevated. Albumin 3.4 Urinalysis showed large leukocyte esterase nitrite positive with elevated WBCs 13 and occasional bacteria. Influenza A, B, RSV and COVID-19 PCR not detected. Recent urine cultures from 02/25/2023 showed gram-negative bacilli. 03/01/2023 Patient is lying in the bed. Awake alert and oriented x 1-2. Mentation is at baseline. Currently patient is room air. No complaints of leg pain. Patient does have indwelling Quezada catheter. Blood cultures showed gram- positive cocci and patient was started on vancomycin. Urine culture is pending. Patient has been afebrile. Wound care is following Patient remains on broad-spectrum antibiotics. ID is on board. Laboratory data showed WBC trending down to 22.0 hemoglobin 13.0 and platelets 284. Sodium 136 potassium 3.9 chloride 97 bicarb is 31 BUN 16 creatinine 1.68 and blood sugar 197. Urinalysis showed large leukocyte esterase with elevated WBC count. Patient does have chronic indwelling Quezada catheter. 03/02/2023 Patient is currently resting in the bed. Awake alert and mentation is at baseline.. Currently on room air. The patient has been afebrile. No complaints of chest pain or shortness of breath. No nausea vomiting or diarrhea noted. Patient is being continued on vancomycin due to gram-positive bacteremia. Turnout to be coagulase-negative staph. Antibiotics otherwise changed to Unasyn as per ID recommendations. Repeat urinalysis was ordered. Initial urine culture is showing gram-negative bacilli. ID is on board. 03/03/2023 Patient is mildly confused especially about time, he knows he is in hospital in [place] and he couldn't tell the name of the president He is admitted with left leg cellulitis and currently is covered with IV vancomycin and Unasyn No wound culture There was suspicion of UTI and urine culture is growing gram-negative bacilli He has positive blood culture 2 suspicious for contamination versus infection. No heart murmur is heard No evidence of bleeding. However his INR still high 4.0 today, hemoglobin went down to 11.4 down to 9.8 Going to repeat hemoglobin tonight and do anemia workup. C2 this morning and Levemir 15 units lower to 12 units 03/04/2039 Patient today is confused, mildly agitated but followed commands, looks somewhat upset and sleepy from pain medication Spell been treated for his left leg cellulitis and acute urinary tract infection Urine culture growing ESBL Klebsiella and his Unasyn was switched to meropenem based on sensitivity and continued with IV vancomycin for his left leg cellulitis Hemoglobin is stable at 10, repeat INR is pending today. Leukocytosis is improving to 16.6. His last fever 100.3 today. Blood culture shows staph epidermidis Anemia workup as ordered and is pending Discussed with staff and bedside nurse Review of systems CONSTITUTIONAL: No fever, no malaise, no fatigue. HEENT: No recent visual problems or hearing problems. Denied any sore throat. CARDIOVASCULAR: No orthopnea, PND, no palpitations, no syncope. PULMONARY: No shortness of breath, no cough, no hemoptysis. GASTROINTESTINAL: No diarrhea, no nausea, no vomiting, no abdominal pain. Normoactive bowel sounds. Active Medications Generic Name Dose Route Start Last Admin Trade Name Freq PRN Reason Stop Dose Admin Acetaminophen 650 mg 02/28/23 22:32 03/02/23 00:03 Acetaminophen Tab 325 Mg Tab PO 650 mg Q4H PRN Administration Fever and/ or Pain Hydrocodone Bitart/Acetaminophen 1 each 03/02/23 08:15 03/02/23 19:45 Hydrocodone/Apap 10-325mg 1 Each Tab PO 1 each Q6HR PRN Administration Pain Amlodipine Besylate 5 mg 03/03/23 09:00 03/03/23 20:30 Amlodipine 5 Mg Tab PO 5 mg BID@0900,2100 [facility] Administration Atorvastatin Calcium 80 mg 03/01/23 21:00 03/03/23 20:30 Atorvastatin 80 Mg Tab PO 80 mg HS@2100 PRASANNA Administration Buspirone HCl 15 mg 03/02/23 09:00 03/03/23 09:41 Buspirone Hcl 5 Mg Tab PO 15 mg DAILY@0900 PRASANNA Administration Calcium Acetate 667 mg 03/02/23 12:00 03/03/23 18:24 Calcium Acetate 667 Mg Tab PO 667 mg TID@0800,1200,1700 [facility] Administration Collagenase 1 applic 03/02/23 08:15 03/03/23 07:12 Collagenase 250 Unit/Gm Ointment 30 Gm Tube TOPICAL 1 applic DAILY PRN Administration LEFT HEEL WOUND Protocol Collagenase 1 applic 03/02/23 21:00 03/03/23 20:34 Collagenase 250 Unit/Gm Ointment 30 Gm Tube TOPICAL Not Given HS PRASANNA Protocol Dextrose/Water 25 ml 02/28/23 22:34 Dextrose 50% Syringe 50 Ml IVP PER PROTOCOL PRN Hypoglycemia Protocol Dextrose/Water 50 ml 02/28/23 22:34 Dextrose 50% Syringe 50 Ml IVP PER PROTOCOL PRN Hypoglycemia Protocol Donepezil HCl 10 mg 03/01/23 21:00 03/03/23 20:29 Donepezil 10 Mg Tab PO 10 mg HS@2100 PRASANNA Administration Gabapentin 200 mg 03/02/23 14:00 03/04/23 06:29 Gabapentin 100 Mg Cap PO 200 mg TID@0600,1400,2200 [facility] Administration Haloperidol Lactate 2 mg 03/02/23 00:29 Haloperidol Lactate 5 Mg/Ml 1 Ml Vial IM Q4HR PRN Agitation or Acute Psychosis Sodium Chloride 1,000 mls @ 75 mls/hr 02/28/23 15:00 03/04/23 00:50 Saline 0.9% IV Not Given .[id number] [facility] Vancomycin HCl 1,500 mg/ 500 mls @ 167 mls/hr 03/04/23 15:00 Sodium Chloride IVPB Q24HR@1500 [facility] Meropenem 1 gm/ Sodium 100 mls @ 33.3 mls/hr 03/04/23 10:15 Chloride IVPB Q8HR [facility] Protocol Insulin Aspart 0 unit 03/01/23 07:30 03/04/23 06:09 Insulin Aspart (Novolog) 100 Unit/Ml Vial SQ Not Given ACHS [facility] Protocol Insulin Detemir 12 unit 03/03/23 21:00 03/03/23 20:30 Insulin Detemir (Levemir) 100 Unit/Ml Syr SQ 12 unit HS@2100 [facility] Administration Metoprolol Tartrate 50 mg 03/01/23 09:00 03/03/23 09:41 Metoprolol Tartrate 50 Mg Tab PO 50 mg DAILY@0900 [facility] Administration Miscellaneous Information 0 each 03/01/23 02:32 Warfarin Per Pharmacy MISCELLANE DIRECTED PRN PER PROTOCOL Naloxone HCl 0.2 mg 02/28/23 14:53 Naloxone 0.4 Mg/Ml 1 Ml Vial IV Q2M PRN Opioid Reversal Pantoprazole Sodium 40 mg 03/01/23 07:30 03/04/23 06:29 Pantoprazole 40 Mg Tablet PO 40 mg [id number] [facility] Administration Petrolatum 1 applic 03/01/23 23:25 03/01/23 23:44 Zinc Oxide Paste (Z-Guard) 1 Applic TOPICAL 1 applic Q2HR PRN Administration Wound Healing Protocol Quetiapine Fumarate 25 mg 03/02/23 00:30 03/03/23 20:28 Quetiapine 25 Mg Tab PO 25 mg HS [facility] Administration Objective - Vital Signs Vital signs: Vital Signs Temp 99.9 F H 03/04/23 07:22 Pulse 115 H 03/04/23 07:22 Resp 20 03/04/23 07:22 BP 182/69 03/04/23 07:22 Pulse Ox 93 L 03/04/23 07:22 FiO2 Intake & Output 03/03/23 03/04/23 03/04/23 18:59 06:59 18:59 Intake Total 540 1380 Output Total 500 500 Balance 40 880 Weight 95.254 kg Intake: Intake, IV Titration 900 Amount Sodium Chloride 0.9% 1, 900 000 ml @ 75 mls/hr IV . [id number] [facility] Rx#:[id number] Oral 540 480 Output: Urine 500 500 Other: Voiding Method Indwelling Catheter Indwelling Catheter # Bowel Movements 1 - Exam -GENERAL: The patient is alert and oriented x2-3, not in any acute distress. Well developed, well nourished. HEENT: Pupils are round and equally reacting to light. EOMI. No scleral icterus. No conjunctival pallor. Normocephalic, atraumatic. No pharyngeal erythema. No thyromegaly. CARDIOVASCULAR: S1 and S2 present. No murmurs, rubs, or gallops. PULMONARY: Chest is clear to auscultation, no wheezing , no crackles. ABDOMEN: Soft, nontender, nondistended, normoactive bowel sounds. No palpable organomegaly. MUSCULOSKELETAL: No joint swelling or deformity. -EXTREMITIES: No cyanosis, clubbing, or pedal edema. Left leg cellulitis NEUROLOGICAL: Gross neurological examination did not reveal any focal deficits. SKIN: No rashes. no petechiae. - Labs CBC & Chem 7: 03/03/23 19:35 03/03/23 10:54 Labs: Abnormal Lab Results - Last 24 Hours (Table) 03/03/23 03/03/23 03/03/23 Range/Units 10:54 10:54 11:39 WBC 17.5 H (3.8-10.6) k/uL RBC 3.42 L (4.30-5.90) m/uL Hgb 9.8 L D (13.0-17.5) gm/dL Hct 30.1 L (39.0-53.0) % RDW 15.6 H (11.5-15.5) % Neutrophils # 15.5 H (1.3-7.7) k/uL Potassium 3.3 L (3.5-5.1) mmol/L Chloride 115 H (98-107) mmol/L Glucose 66 L (74-99) mg/dL POC Glucose (mg/dL) 62 L (70-110) mg/dL Calcium 7.8 L (8.4-10.2) mg/dL 03/03/23 03/03/23 Range/Units 19:35 20:10 WBC 16.6 H (3.8-10.6) k/uL RBC 3.56 L (4.30-5.90) m/uL Hgb 10.0 L (13.0-17.5) gm/dL Hct 31.4 L (39.0-53.0) % RDW 15.8 H (11.5-15.5) % Neutrophils # (1.3-7.7) k/uL Potassium (3.5-5.1) mmol/L Chloride (98-107) mmol/L Glucose (74-99) mg/dL POC Glucose (mg/dL) 150 H (70-110) mg/dL Calcium (8.4-10.2) mg/dL Microbiology - Last 24 Hours (Table) 02/28/23 18:12 Urine Culture - Final Urine,Voided Klebsiella oxytoca 03/02/23 06:15 Gram Stain - Preliminary Foot - Left Wound Culture - Preliminary 03/02/23 07:28 Blood Culture - Preliminary Blood 02/28/23 13:02 Blood Culture Gram Stain - Final Blood Blood Culture - Final Staphylococcus epidermidis 02/28/23 13:02 Blood Culture Gram Stain - Final Blood Blood Culture - Final Staphylococcus epidermidis Assessment and Plan Assessment: diabetic left heel ulcer stage 3 with surrounding cellulitis . Acute urinary tract infection. Urine culture: showed gram-negative bacilli.Patient does have indwelling Quezada catheter. Worsening leukocytosis. Possible right heel ulcer versus UTI. Coagulopathy secondary to high INR Anemia, with worsening hemoglobin Acute kidney injury likely prerenal creatinine 1.68 and baseline 1.1 proved Generalized weakness and unable to ambulate without support. Hypoglycemia with uncontrolled diabetes type 2 insulin-dependent Paroxysmal atrial fibrillation on anticoagulation with Coumadin Coronary arteries with history of stent placement Hypertension Hyperlipidemia Dementia/cognitive impairment Stage II sacral decub ulcers. Plan: Continue with meropenem and IV vancomycin Follow-up repeat blood culture Infectious disease consult on the mud temperer INR and hemoglobin Anemia workup Labs and medication were reviewed.. Continue same treatment. Continue with symptomatic treatment. Resume home medication. Monitor labs and vitals. DVT and GI prophylaxis. Further recommendations as per clinical course of the patient DVT prophylaxis: on Coumadin GI Prophylaxis: Ppi PT/OT: Pending Prognosis is guarded
[2023-03-04] MEDS: MEROPENEM 1 GM in SODIUM CHLORIDE 0.9% 100 ML IVPB SCH (10:53)
[2023-03-04 11:26] LABS: Glucose,Whole Blood 124 mg/dL (70-110)
[2023-03-04 11:52] LABS: Basophils % (A) 0 %; Eosinophils % (A) 0 %; HCT 28.5 % (39.0-53.0); HGB 9.4 gm/dL (13.0-17.5); Hypochromasia Moderate; Lymphocytes # (A) 0.8 k/uL (1.0-4.8); Lymphocytes % (A) 5 %; MCH 29.1 pg (25.0-35.0); MCHC 32.8 g/dL (31.0-37.0); MCV 88.6 fL (80.0-100.0); Monocytes % (A) 7 %; Neutrophils # (A) 13.8 k/uL (1.3-7.7); Neutrophils % (A) 87 %; Platelet Count 133 k/uL (150-450); RBC 3.22 m/uL (4.30-5.90); RDW 15.7 % (11.5-15.5); WBC 15.9 k/uL (3.8-10.6)
[2023-03-04 11:57] LABS: INR 3.8 (<1.2)
[2023-03-04 12:14] LABS: African American GFR (CKD) >90 (>60 ml/min/1.73 sqM); Anion Gap 3 mmol/L; Blood Urea Nitrogen 11 mg/dL (9-20); Calcium 7.4 mg/dL (8.4-10.2); Carbon Dioxide 22 mmol/L (22-30); Chloride 117 mmol/L (98-107); Glucose 110 mg/dL (74-99); Non-African American GFR(CKD) 80 (>60 ml/min/1.73 sqM); Potassium 3.2 mmol/L (3.5-5.1); Sodium 142 mmol/L (137-145)
[2023-03-04] MEDS: VANCOMYCIN 1,500 MG in SODIUM CHLORIDE 0.9% 500 ML 500 ML IVPB SCH (15:22)
[2023-03-04 16:33] LABS: Glucose,Whole Blood 121 mg/dL (70-110)
[2023-03-04] MEDS: WARFARIN 0.5 MG TAB PO ONE (17:18)
[2023-03-04 20:13] LABS: Glucose,Whole Blood 127 mg/dL (70-110)
[2023-03-04] MEDS: INSULIN DETEMIR (LEVEMIR) 100 UNIT/ML SYR SQ SCH (21:33)
[2023-03-04 23:18] LABS: % Iron Saturation 5.95 (15.00-50.00); Iron 10 UG/DL (65-175); Total Iron Binding Capacity 168 UG/DL (228-460)
[2023-03-05 01:49] LABS: Glucose,Whole Blood 126 mg/dL (70-110)
[2023-03-05 05:39] LABS: Glucose,Whole Blood 78 mg/dL (70-110)
[2023-03-05 08:31] LABS: INR 3.5 (<1.2); Prothrombin Time 34.5 sec (10.0-12.5)
[2023-03-05 10:18] LABS: Glucose,Whole Blood 90 mg/dL (70-110)
[2023-03-05 11:35] LABS: Glucose,Whole Blood 119 mg/dL (70-110)
[2023-03-05 11:59] LABS: Basophils # (A) 0.01 X 10*3/uL (0.00-0.10); Basophils % (A) 0.1 %; Eosinophils # (A) 0.19 X 10*3/uL (0.04-0.35); Eosinophils % (A) 1.3 %; HCT 28.7 % (39.6-50.0); HGB 8.5 g/dL (13.0-17.0); Lymphocytes # (A) 1.74 X 10*3/uL (0.90-5.00); Lymphocytes % (A) 11.5 %; MCH 27.2 pg (27.0-32.0); MCHC 29.6 g/dL (32.0-37.0); MCV 91.7 FL (80.0-97.0); Monocytes # (A) 1.02 X 10*3/uL (0.20-1.00); Monocytes % (A) 6.8 %; NRBC Per 100 WBC 0 X 10*3/uL (0.00-0.01); Neutrophils # (A) 12.07 X 10*3/uL (1.80-7.70); Neutrophils % (A) 79.8 %; Platelet Count 139 X 10*3/uL (140-440); RBC 3.13 X 10*6/uL (4.40-5.60)
--- NOTE | 2023-03-05 12:07 | P.PN ---
Subjective Progress Note Date: 03/03/23 Principal diagnosis: Reason for follow-up is left lower extremity cellulitis UTI and bacteremia This is a telehealth visit Patient is a 78-year-old male with a past medical history significant for diabetes mellitus hypertension hyperlipidemia [place] patient was brought into the hospital from the local halfway concerning for elevated white count, patient did have a left hip ulceration noted to have a cellulitis to the left lower extremity also have a chronic indwelling Quezada catheter with a positive UA and blood cultures came back positive with gram-positive cocci. On today's evaluation that is 03/03/2023 the patient remains to be afebrile, the patient is breathing comfortably on room air, the patient denies any chest pain or cough no nausea vomiting no abdominal pain and no diarrhea has been reported. Patient white count is down to 16.6, creatinine is 0.94 urine is growing gram- negative blood culture with the 2 out of 2 staph epi Objective - Vital Signs Vital signs: Vital Signs Temp 97.6 F 03/03/23 08:00 Pulse 98 03/03/23 08:00 Resp 20 03/03/23 08:00 BP 166/69 03/03/23 08:00 Pulse Ox 97 03/03/23 08:00 FiO2 Intake & Output 03/02/23 03/03/23 03/03/23 18:59 06:59 18:59 Intake Total 540 Output Total 250 Balance -250 540 Intake: Oral 540 Output: Urine 250 Other: Voiding Method Indwelling Catheter Indwelling Catheter # Bowel Movements 2 - Exam Elderly male lying in bed in no distress Respiratory system unlabored breathing decreased breath sound the base Heart S1-S2 regular Abdominal soft no tenderness Left leg is currently wrapped no drainage on the dressing Exam completed with the help of LABOR RELATIONS DIRECTOR - Labs CBC & Chem 7: 03/05/23 07:43 03/04/23 11:17 Labs: Abnormal Lab Results - Last 24 Hours (Table) 03/02/23 03/02/23 03/03/23 Range/Units 11:13 21:19 05:52 PT (10.0-12.5) sec INR (<1.2) Potassium 3.3 L (3.5-5.1) mmol/L Chloride 117 H (98-107) mmol/L Glucose 65 L (74-99) mg/dL POC Glucose (mg/dL) 127 H (70-110) mg/dL Calcium 8.3 L (8.4-10.2) mg/dL Urine Protein 2+ H (Negative) Urine Blood Moderate H (Negative) Ur Leukocyte Esterase Moderate H (Negative) Urine RBC 121 H (0-5) /hpf Urine WBC 69 H (0-5) /hpf Urine WBC Clumps Moderate H (None) /hpf Calcium Oxalate Crystal Few H (None) /hpf Cystine Crystals Positive H (None Seen) /hpf Urine Bacteria Occasional H (None) /hpf Urine Mucus Rare H (None) /hpf Urine Yeast (Budding) Few H (None) /hpf 03/03/23 03/03/23 Range/Units 06:03 06:45 PT 39.6 H (10.0-12.5) sec INR 4.0 H (<1.2) Potassium (3.5-5.1) mmol/L Chloride (98-107) mmol/L Glucose (74-99) mg/dL POC Glucose (mg/dL) 69 L (70-110) mg/dL Calcium (8.4-10.2) mg/dL Urine Protein (Negative) Urine Blood (Negative) Ur Leukocyte Esterase (Negative) Urine RBC (0-5) /hpf Urine WBC (0-5) /hpf Urine WBC Clumps (None) /hpf Calcium Oxalate Crystal (None) /hpf Cystine Crystals (None Seen) /hpf Urine Bacteria (None) /hpf Urine Mucus (None) /hpf Urine Yeast (Budding) (None) /hpf Microbiology - Last 24 Hours (Table) 03/02/23 06:15 Gram Stain - Preliminary Foot - Left 02/28/23 13:02 Blood Culture Gram Stain - Preliminary Blood Blood Culture - Preliminary Coagulase Negative Staph 02/28/23 13:02 Blood Culture Gram Stain - Preliminary Blood Blood Culture - Preliminary Coagulase Negative Staph Assessment and Plan (1) Left leg cellulitis Current Visit: Yes Status: Acute Code(s): L03.116 - CELLULITIS OF LEFT LOWER LIMB SNOMED Code(s): 61693109272709409 (2) UTI (urinary tract infection) Current Visit: Yes Status: Acute Code(s): N39.0 - URINARY TRACT INFECTION, SITE NOT SPECIFIED SNOMED Code(s): 41065876 (3) Positive blood culture Current Visit: Yes Status: Acute Code(s): R78.81 - BACTEREMIA SNOMED Code(s): 963029616 (4) Leukocytosis Current Visit: Yes Status: Acute Code(s): D72.829 - ELEVATED WHITE BLOOD CELL COUNT, UNSPECIFIED SNOMED Code(s): 623982591 (5) Ulcer of left foot Current Visit: No Status: Acute Code(s): L97.529 - NON-PRESSURE CHRONIC ULCER OTH PRT LEFT FOOT W UNSP SEVERITY SNOMED Code(s): 637714347 Plan: 1patient was in the hospital with elevated white count source is likely left heel wound with secondary cellulitis in this patient with likely stage III pressure ulcer at the wound base did have some slough tissue like responsible for cellulitis to the left lower extremity likely from gram-positive skin [place] 2positive blood culture 2 out of 2 staph epi question of contamination was related to his left lower extremity cellulitis blood cultures will be repeated document clearance 3-patient to continuevancomycin pharmacy to dose target trough of 15 while watching kidney function and Vanco trough closely 4local wound care to the right posterior heel wound with the Santyl followed by moist dressing keep the area of the pressure 5-positive urine culture with gram-negative bacilli question of Quezada colonization versus cath versus UTI especially with elevated white count, the patient Quezada catheter has been changed, continue with Unasyn while waiting for the culture to finalize Dictation was produced using [employer] dictation software. please excuse any grammatical, word or spelling errors. Time with Patient: Less than 30
--- NOTE | 2023-03-05 12:08 | P.PN ---
Subjective Progress Note Date: 03/04/23 Principal diagnosis: Reason for follow-up is left lower extremity cellulitis UTI and bacteremia This is a telehealth visit Patient is a 78-year-old male with a past medical history significant for diabetes mellitus hypertension hyperlipidemia [place] patient was [facility] for elevated white count, patient did have a left hip ulceration noted to have a cellulitis to the left lower extremity also have a chronic indwelling Quezada catheter with a positive UA and blood cultures came back positive with gram-positive cocci. On today's evaluation that is 03/04/2023 the patient did spike a fever of 101 F this afternoon, the patient is breathing comfortably on room air, the patient denies any chest pain or cough no nausea vomiting no abdominal pain and no diarrhea has been reported. Patient white count is down to 15.9, creatinine is 0.92 urine is growing ESBL Klebsiella, blood culture with the 2 out of 2 staph epi Objective - Vital Signs Vital signs: Vital Signs Temp 101 F H 03/04/23 13:34 Pulse 74 03/04/23 13:34 Resp 19 03/04/23 13:34 BP 128/63 03/04/23 13:34 Pulse Ox 93 L 03/04/23 07:22 FiO2 Intake & Output 03/03/23 03/04/23 03/04/23 18:59 06:59 18:59 Intake Total 540 1380 Output Total 500 500 Balance 40 880 Weight 95.254 kg Intake: Intake, IV Titration 900 Amount Sodium Chloride 0.9% 1, 900 000 ml @ 75 mls/hr IV . [id number] [facility] Rx#:[id number] Oral 540 480 Output: Urine 500 500 Other: Voiding Method Indwelling Catheter Indwelling Catheter Indwelling Catheter # Bowel Movements 1 - Exam Elderly male lying in bed in no distress Respiratory system unlabored breathing decreased breath sound the base Heart S1-S2 regular Abdominal soft no tenderness Left leg is currently wrapped no drainage on the dressing Exam completed with the help of RECYCLE COORDINATOR - Labs CBC & Chem 7: 03/05/23 07:43 03/04/23 11:17 Labs: Abnormal Lab Results - Last 24 Hours (Table) 03/03/23 03/03/23 03/04/23 Range/Units 19:35 20:10 11:17 WBC 16.6 H 15.9 H (3.8-10.6) k/uL RBC 3.56 L 3.22 L (4.30-5.90) m/uL Hgb 10.0 L 9.4 L (13.0-17.5) gm/dL Hct 31.4 L 28.5 L (39.0-53.0) % RDW 15.8 H 15.7 H (11.5-15.5) % Plt Count 133 L (150-450) k/uL Neutrophils # 13.8 H (1.3-7.7) k/uL Lymphocytes # 0.8 L (1.0-4.8) k/uL PT (10.0-12.5) sec INR (<1.2) Potassium (3.5-5.1) mmol/L Chloride (98-107) mmol/L Glucose (74-99) mg/dL POC Glucose (mg/dL) 150 H (70-110) mg/dL Calcium (8.4-10.2) mg/dL 03/04/23 03/04/23 03/04/23 Range/Units 11:17 11:17 11:23 WBC (3.8-10.6) k/uL RBC (4.30-5.90) m/uL Hgb (13.0-17.5) gm/dL Hct (39.0-53.0) % RDW (11.5-15.5) % Plt Count (150-450) k/uL Neutrophils # (1.3-7.7) k/uL Lymphocytes # (1.0-4.8) k/uL PT 37.0 H (10.0-12.5) sec INR 3.8 H (<1.2) Potassium 3.2 L (3.5-5.1) mmol/L Chloride 117 H (98-107) mmol/L Glucose 110 H (74-99) mg/dL POC Glucose (mg/dL) 124 H (70-110) mg/dL Calcium 7.4 L (8.4-10.2) mg/dL 03/04/23 Range/Units 16:27 WBC (3.8-10.6) k/uL RBC (4.30-5.90) m/uL Hgb (13.0-17.5) gm/dL Hct (39.0-53.0) % RDW (11.5-15.5) % Plt Count (150-450) k/uL Neutrophils # (1.3-7.7) k/uL Lymphocytes # (1.0-4.8) k/uL PT (10.0-12.5) sec INR (<1.2) Potassium (3.5-5.1) mmol/L Chloride (98-107) mmol/L Glucose (74-99) mg/dL POC Glucose (mg/dL) 121 H (70-110) mg/dL Calcium (8.4-10.2) mg/dL Microbiology - Last 24 Hours (Table) 03/02/23 06:15 Anaerobic Culture - Preliminary Heel - Left 03/02/23 06:15 Gram Stain - Final Foot - Left Wound Culture - Final 03/02/23 07:28 Blood Culture - Preliminary Blood 02/28/23 18:12 Urine Culture - Final Urine,Voided Klebsiella oxytoca Assessment and Plan (1) Left leg cellulitis Current Visit: Yes Status: Acute Code(s): L03.116 - CELLULITIS OF LEFT LOWER LIMB SNOMED Code(s): 84511747666316144 (2) UTI (urinary tract infection) Current Visit: Yes Status: Acute Code(s): N39.0 - URINARY TRACT INFECTION, SITE NOT SPECIFIED SNOMED Code(s): 29900594 (3) Positive blood culture Current Visit: Yes Status: Acute Code(s): R78.81 - BACTEREMIA SNOMED Code(s): 524637097 (4) Leukocytosis Current Visit: Yes Status: Acute Code(s): D72.829 - ELEVATED WHITE BLOOD CELL COUNT, UNSPECIFIED SNOMED Code(s): 095888257 (5) Ulcer of left foot Current Visit: No Status: Acute Code(s): L97.529 - NON-PRESSURE CHRONIC ULCER OTH PRT LEFT FOOT W UNSP SEVERITY SNOMED Code(s): 554677114 Plan: 1patient was in the hospital with elevated white count source is likely left heel wound with secondary cellulitis in this patient with likely stage III pressure ulcer at the wound base did have some slough tissue like responsible for cellulitis to the left lower extremity likely from gram-positive skin [place] 2positive blood culture 2 out of 2 staph epi question of contamination was related to his left lower extremity cellulitis blood cultures will be repeated document clearance 3-patient to continuevancomycin pharmacy to dose target trough of 15 while watching kidney function and Vanco trough closely 4local wound care to the right posterior heel wound with the Santyl followed by moist dressing keep the area of the pressure 5-positive urine culture ESBL Klebsiella Unasyn has been discontinued meropenem has been added and will monitor closely Dictation was produced using [employer] dictation software. please excuse any grammatical, word or spelling errors. Time with Patient: Less than 30
--- NOTE | 2023-03-05 12:10 | P.PN ---
Subjective Progress Note Date: 03/05/23 Principal diagnosis: Reason for follow-up is left lower extremity cellulitis UTI and bacteremia Patient is a 78-year-old male with a past medical history significant for diabetes mellitus hypertension hyperlipidemia [place] patient was brought into the hospital from the local detention concerning for elevated white count, patient did have a left hip ulceration noted to have a cellulitis to the left lower extremity also have a chronic indwelling Quezada catheter with a positive UA and blood cultures came back positive with gram-positive cocci. On today's evaluation that is 03/05/2023 the patient is afebrile today, the patient is breathing comfortably on room air, the patient slightly lethargic sleepy and did not provide any history no vomiting diarrhea or any other changes reported by the nursing staff Patient white count is down to 15.10, creatinine is 0.92 urine is growing ESBL Klebsiella, blood culture with the 2 out of 2 staph epi Objective - Vital Signs Vital signs: Vital Signs Temp 98.2 F 03/05/23 08:00 Pulse 93 03/05/23 08:00 Resp 18 03/05/23 08:00 BP 158/63 03/05/23 08:00 Pulse Ox 90 L 03/05/23 08:00 FiO2 Intake & Output 03/04/23 03/05/23 03/05/23 18:59 06:59 18:59 Intake Total 1380 Output Total 1000 Balance 380 Intake: Intake, IV Titration 900 Amount Sodium Chloride 0.9% 1, 900 000 ml @ 75 mls/hr IV . [id number] [facility] Rx#:[id number] Oral 480 Output: Urine 1000 Other: Voiding Method Indwelling Catheter Indwelling Catheter # Voids 1 - Exam GENERAL DESCRIPTION: An elderly male lying in bed in no distress RESPIRATORY SYSTEM: Unlabored breathing , decreased breath sounds at bases HEART: S1 S2 regular rate and rhythm , ABDOMEN: Soft , no tenderness EXTREMITIES: Right posterior heel with a stage II pressure ulcer minimal slough tissue no surrounding redness - Labs CBC & Chem 7: 03/05/23 07:43 03/04/23 11:17 Labs: Abnormal Lab Results - Last 24 Hours (Table) 03/04/23 03/04/23 03/04/23 Range/Units 11:17 16:27 20:12 WBC (4.50-10.00) X 10*3/uL RBC (4.40-5.60) X 10*6/uL Hgb (13.0-17.0) g/dL Hct (39.6-50.0) % MCHC (32.0-37.0) g/dL RDW (11.5-14.5) % Plt Count (140-440) X 10*3/uL Immature Gran # (0.00-0.04) X 10*3/uL Neutrophils # (1.80-7.70) X 10*3/uL Monocytes # (0.20-1.00) X 10*3/uL PT (10.0-12.5) sec INR (<1.2) Potassium 3.2 L (3.5-5.1) mmol/L Chloride 117 H (98-107) mmol/L Glucose 110 H (74-99) mg/dL POC Glucose (mg/dL) 121 H 127 H (70-110) mg/dL Calcium 7.4 L (8.4-10.2) mg/dL Iron 10 L (65-175) UG/DL TIBC 168 L (228-460) UG/DL % Saturation 5.95 L (15.00-50.00) Transferrin 120.0 L (204.0-354.0) mg/dL 03/05/23 03/05/23 03/05/23 Range/Units 01:48 07:43 07:43 WBC 15.10 H (4.50-10.00) X 10*3/uL RBC 3.13 L (4.40-5.60) X 10*6/uL Hgb 8.5 L (13.0-17.0) g/dL Hct 28.7 L (39.6-50.0) % MCHC 29.6 L (32.0-37.0) g/dL RDW 16.0 H (11.5-14.5) % Plt Count 139 L (140-440) X 10*3/uL Immature Gran # 0.07 H (0.00-0.04) X 10*3/uL Neutrophils # 12.07 H (1.80-7.70) X 10*3/uL Monocytes # 1.02 H (0.20-1.00) X 10*3/uL PT 34.5 H (10.0-12.5) sec INR 3.5 H (<1.2) Potassium (3.5-5.1) mmol/L Chloride (98-107) mmol/L Glucose (74-99) mg/dL POC Glucose (mg/dL) 126 H (70-110) mg/dL Calcium (8.4-10.2) mg/dL Iron (65-175) UG/DL TIBC (228-460) UG/DL % Saturation (15.00-50.00) Transferrin (204.0-354.0) mg/dL 03/05/23 Range/Units 11:33 WBC (4.50-10.00) X 10*3/uL RBC (4.40-5.60) X 10*6/uL Hgb (13.0-17.0) g/dL Hct (39.6-50.0) % MCHC (32.0-37.0) g/dL RDW (11.5-14.5) % Plt Count (140-440) X 10*3/uL Immature Gran # (0.00-0.04) X 10*3/uL Neutrophils # (1.80-7.70) X 10*3/uL Monocytes # (0.20-1.00) X 10*3/uL PT (10.0-12.5) sec INR (<1.2) Potassium (3.5-5.1) mmol/L Chloride (98-107) mmol/L Glucose (74-99) mg/dL POC Glucose (mg/dL) 119 H (70-110) mg/dL Calcium (8.4-10.2) mg/dL Iron (65-175) UG/DL TIBC (228-460) UG/DL % Saturation (15.00-50.00) Transferrin (204.0-354.0) mg/dL Microbiology - Last 24 Hours (Table) 03/02/23 06:15 Anaerobic Culture - Preliminary Heel - Left 03/02/23 06:15 Gram Stain - Final Foot - Left Wound Culture - Final 03/02/23 07:28 Blood Culture - Preliminary Blood Assessment and Plan (1) Left leg cellulitis Current Visit: Yes Status: Acute Code(s): L03.116 - CELLULITIS OF LEFT LOWER LIMB SNOMED Code(s): 26801921817993183 (2) UTI (urinary tract infection) Current Visit: Yes Status: Acute Code(s): N39.0 - URINARY TRACT INFECTION, SITE NOT SPECIFIED SNOMED Code(s): 27147446 (3) Positive blood culture Current Visit: Yes Status: Acute Code(s): R78.81 - BACTEREMIA SNOMED Code(s): 433848853 (4) Leukocytosis Current Visit: Yes Status: Acute Code(s): D72.829 - ELEVATED WHITE BLOOD CELL COUNT, UNSPECIFIED SNOMED Code(s): 787216613 (5) Ulcer of left foot Current Visit: No Status: Acute Code(s): L97.529 - NON-PRESSURE CHRONIC ULCER OTH PRT LEFT FOOT W UNSP SEVERITY SNOMED Code(s): 635811377 Plan: 1patient presented to the hospital with elevated white count with initial concern for possible left heel ulcer and cellulitis however the patient also have a positive UA and there was concern for catheter associated UTI 2positive blood culture 2 out of 2 staph epi question of contamination, repeat blood culture has been negative we will discontinue vancomycin 3-patient local wound care to the right posterior heel wound with the Santyl followed by moist dressing keep the area of the pressure 4-positive urine culture ESBL Klebsiella we will check ultrasound of the kidney bladder to make sure evidence of any abscess or obstructive uropathy continue with the meropenem will need IV biotic on discharge Dictation was produced using [employer] dictation software. please excuse any grammatical, word or spelling errors. Time with Patient: Less than 30
[2023-03-05 12:21] LABS: Blood Urea Nitrogen 10.5 mg/dL (9.0-27.0); Calcium 7.2 mg/dL (8.7-10.3); Carbon Dioxide 20.9 mmol/L (21.6-31.8); Chloride 113 mmol/L (96-109); Glucose 87 mg/dL (70-110); Potassium 3.6 mmol/L (3.5-5.5); Sodium 142 mmol/L (135-145)
--- NOTE | 2023-03-05 15:01 | US ---
EXAMINATION TYPE: US kidneys/renal and bladder DATE OF EXAM: 03/05/2023 COMPARISON: NONE CLINICAL INDICATION: Male, 78 years old with history of uti and bacteremia; uti Crop Roller notes: Limited exam, patient unable to roll. EXAM MEASUREMENTS: Right Kidney: 12 x 5.9 x 4.9 cm Left Kidney: 10.9 x 4.8 x 3.4 cm Right Kidney: No hydronephrosis or masses seen Left Kidney: No hydronephrosis or masses seen Bladder: Limited assessment as the Quezada catheter is in place Bilateral Jets seen: no IMPRESSION: 1. Technical exam limitations. No hydronephrosis on either side. 2. Suboptimal bladder assessment due to the presence of a Quezada catheter.
[2023-03-05 16:48] LABS: Glucose,Whole Blood 109 mg/dL (70-110)
[2023-03-05] MEDS: WARFARIN 0.5 MG TAB PO ONE (17:00)
--- NOTE | 2023-03-05 17:02 | P.PN ---
Subjective Patient is a 78-year-old male with a known history of coronary artery disease status post stent placement, atrial fibrillation on anticoagulation with Coumadin, hypertension, diabetes type 2 insulin-dependent, hyperlipidemia, COPD, gout and dementia who is currently at retirement was sent to hospital due to worsening leukocytosis. Patient discharged from hospital recently on 02/09/2023 after treatment for left heel diabetic foot ulcer and surrounding cellulitis. Patient does have indwelling Quezada catheter. Cognitive impairment and could not provide much history. Patient's daughter is at bedside. Otherwise patient does not have any fever or chills. Denies any abdominal pain. No nausea vomiting or diarrhea. Chest x-ray showed no acute cardiopulmonary process/disease. Ankle x-ray showed 7 mm ossific density at the distal Achilles tendon on with mild thickening. Consider chronic insertional tendinopathy. Sequela of old injury to the medial malleolus. No vaughn lytic destruction identified to clearly indicate osteomyelitis. Laboratory data showed WBC 22.0 hemoglobin 13.0 and platelets 284 Sodium 136 potassium 3.9 chloride 97 bicarb is 31 BUN 60 and creatinine 1.68 and blood sugar 197. Liver enzymes are not elevated. Albumin 3.4 Urinalysis showed large leukocyte esterase nitrite positive with elevated WBCs 13 and occasional bacteria. Influenza A, B, RSV and COVID-19 PCR not detected. Recent urine cultures from 02/25/2023 showed gram-negative bacilli. 03/01/2023 Patient is lying in the bed. Awake alert and oriented x 1-2. Mentation is at baseline. Currently patient is room air. No complaints of leg pain. Patient does have indwelling Quezada catheter. Blood cultures showed gram- positive cocci and patient was started on vancomycin. Urine culture is pending. Patient has been afebrile. Wound care is following Patient remains on broad-spectrum antibiotics. ID is on board. Laboratory data showed WBC trending down to 22.0 hemoglobin 13.0 and platelets 284. Sodium 136 potassium 3.9 chloride 97 bicarb is 31 BUN 16 creatinine 1.68 and blood sugar 197. Urinalysis showed large leukocyte esterase with elevated WBC count. Patient does have chronic indwelling Quezada catheter. 03/02/2023 Patient is currently resting in the bed. Awake alert and mentation is at baseline.. Currently on room air. The patient has been afebrile. No complaints of chest pain or shortness of breath. No nausea vomiting or diarrhea noted. Patient is being continued on vancomycin due to gram-positive bacteremia. Turnout to be coagulase-negative staph. Antibiotics otherwise changed to Unasyn as per ID recommendations. Repeat urinalysis was ordered. Initial urine culture is showing gram-negative bacilli. ID is on board. 03/03/2023 Patient is mildly confused especially about time, he knows he is in hospital in [place] and he couldn't tell the name of the president He is admitted with left leg cellulitis and currently is covered with IV vancomycin and Unasyn No wound culture There was suspicion of UTI and urine culture is growing gram-negative bacilli He has positive blood culture 2 suspicious for contamination versus infection. No heart murmur is heard No evidence of bleeding. However his INR still high 4.0 today, hemoglobin went down to 11.4 down to 9.8 Going to repeat hemoglobin tonight and do anemia workup. C2 this morning and Levemir 15 units lower to 12 units 03/04/2039 Patient today is confused, mildly agitated but followed commands, looks somewhat upset and sleepy from pain medication Spell been treated for his left leg cellulitis and acute urinary tract infection Urine culture growing ESBL Klebsiella and his Unasyn was switched to meropenem based on sensitivity and continued with IV vancomycin for his left leg cellulitis Hemoglobin is stable at 10, repeat INR is pending today. Leukocytosis is improving to 16.6. His last fever 100.3 today. Blood culture shows staph epidermidis Anemia workup as ordered and is pending Discussed with staff and bedside nurse 03/05/2023 Patient still very weak and lethargic, distal also encephalopathic kind confused, he does not answer a lot of question and follow-up, only at certain times indicate in his delirium on the top of his encephalopathy. Most likely related to his sepsis from his left leg cellulitis and Urinary tract infection related to Quezada catheter. Urine culture is growing ESBL Klebsiella, and he is currently covered with IV m eropenem, IV vancomycin was stopped. Patient probably will need IV antibiotics upon discharge we checked renal ultrasound today which was negative for obstructive uropathy given his significant infection Also patient INR is 3.5. Hemoglobin 8.5. Review of systems CONSTITUTIONAL: No fever, no malaise, no fatigue. HEENT: No recent visual problems or hearing problems. Denied any sore throat. CARDIOVASCULAR: No orthopnea, PND, no palpitations, no syncope. PULMONARY: No shortness of breath, no cough, no hemoptysis. Active Medications Generic Name Dose Route Start Last Admin Trade Name Freq PRN Reason Stop Dose Admin Acetaminophen 650 mg 02/28/23 22:32 03/04/23 15:22 Acetaminophen Tab 325 Mg Tab PO 650 mg Q4H PRN Administration Fever and/ or Pain Hydrocodone Bitart/Acetaminophen 1 each 03/02/23 08:15 03/04/23 22:02 Hydrocodone/Apap 10-325mg 1 Each Tab PO 1 each Q6HR PRN Administration Pain Amlodipine Besylate 5 mg 03/03/23 09:00 03/05/23 10:17 Amlodipine 5 Mg Tab PO 5 mg BID@0900,2100 [facility] Administration Atorvastatin Calcium 80 mg 03/01/23 21:00 03/04/23 21:32 Atorvastatin 80 Mg Tab PO 80 mg HS@2100 PRASANNA Administration Buspirone HCl 15 mg 03/02/23 09:00 03/05/23 10:17 Buspirone Hcl 5 Mg Tab PO 15 mg DAILY@0900 PRASANNA Administration Calcium Acetate 667 mg 03/02/23 12:00 03/05/23 13:15 Calcium Acetate 667 Mg Tab PO Not Given TID@0800,1200,1700 [facility] Collagenase 1 applic 03/02/23 08:15 03/03/23 07:12 Collagenase 250 Unit/Gm Ointment 30 Gm Tube TOPICAL 1 applic DAILY PRN Administration LEFT HEEL WOUND Protocol Collagenase 1 applic 03/02/23 21:00 03/04/23 21:37 Collagenase 250 Unit/Gm Ointment 30 Gm Tube TOPICAL 1 applic HS PRASANNA Administration Protocol Dextrose/Water 25 ml 02/28/23 22:34 Dextrose 50% Syringe 50 Ml IVP PER PROTOCOL PRN Hypoglycemia Protocol Dextrose/Water 50 ml 02/28/23 22:34 Dextrose 50% Syringe 50 Ml IVP PER PROTOCOL PRN Hypoglycemia Protocol Donepezil HCl 10 mg 03/01/23 21:00 03/04/23 21:32 Donepezil 10 Mg Tab PO 10 mg HS@2100 PRASANNA Administration Gabapentin 200 mg 03/02/23 14:00 03/05/23 16:23 Gabapentin 100 Mg Cap PO Not Given TID@0600,1400,2200 [facility] Haloperidol Lactate 2 mg 03/02/23 00:29 Haloperidol Lactate 5 Mg/Ml 1 Ml Vial IM Q4HR PRN Agitation or Acute Psychosis Sodium Chloride 1,000 mls @ 75 mls/hr 02/28/23 15:00 03/05/23 01:40 Saline 0.9% IV Not Given .[id number] [facility] Meropenem 1 gm/ Sodium 100 mls @ 33.3 mls/hr 03/04/23 10:30 03/05/23 16:21 Chloride IVPB 33.3 mls/hr Q8HR [facility] Administration Protocol Insulin Aspart 0 unit 03/01/23 07:30 03/05/23 11:41 Insulin Aspart (Novolog) 100 Unit/Ml Vial SQ Not Given ACHS [facility] Protocol Insulin Detemir 10 unit 03/04/23 21:00 03/04/23 21:33 Insulin Detemir (Levemir) 100 Unit/Ml Syr SQ 10 unit HS@2100 [facility] Administration Metoprolol Tartrate 50 mg 03/01/23 09:00 03/05/23 10:17 Metoprolol Tartrate 50 Mg Tab PO 50 mg DAILY@0900 [facility] Administration Miscellaneous Information 0 each 03/01/23 02:32 Warfarin Per Pharmacy MISCELLANE DIRECTED PRN PER PROTOCOL Naloxone HCl 0.2 mg 02/28/23 14:53 Naloxone 0.4 Mg/Ml 1 Ml Vial IV Q2M PRN Opioid Reversal Pantoprazole Sodium 40 mg 03/01/23 07:30 03/05/23 06:28 Pantoprazole 40 Mg Tablet PO 40 mg [id number] [facility] Administration Petrolatum 1 applic 03/01/23 23:25 03/01/23 23:44 Zinc Oxide Paste (Z-Guard) 1 Applic TOPICAL 1 applic Q2HR PRN Administration Wound Healing Protocol Quetiapine Fumarate 25 mg 03/02/23 00:30 03/04/23 21:32 Quetiapine 25 Mg Tab PO 25 mg HS [facility] Administration Warfarin Sodium 0 mg 03/05/23 18:00 Warfarin 0.5 Mg Tab PO 03/05/23 18:01 ONCE@1800 ONE Objective - Vital Signs Vital signs: Vital Signs Temp 98.2 F 03/05/23 08:00 Pulse 93 03/05/23 08:00 Resp 18 03/05/23 08:00 BP 158/63 03/05/23 08:00 Pulse Ox 90 L 03/05/23 08:00 FiO2 Intake & Output 03/04/23 03/05/23 03/05/23 18:59 06:59 18:59 Intake Total 1380 Output Total 1000 Balance 380 Intake: Intake, IV Titration 900 Amount Sodium Chloride 0.9% 1, 900 000 ml @ 75 mls/hr IV . [id number] [facility] Rx#:[id number] Oral 480 Output: Urine 1000 Other: Voiding Method Indwelling Catheter Indwelling Catheter # Voids 1 - Exam -GENERAL: The patient is alert and oriented x2-3, not in any acute distress. Well developed, well nourished. HEENT: Pupils are round and equally reacting to light. EOMI. No scleral icterus. No conjunctival pallor. Normocephalic, atraumatic. No pharyngeal erythema. No thyromegaly. CARDIOVASCULAR: S1 and S2 present. No murmurs, rubs, or gallops. PULMONARY: Chest is clear to auscultation, no wheezing , no crackles. ABDOMEN: Soft, nontender, nondistended, normoactive bowel sounds. No palpable organomegaly. MUSCULOSKELETAL: No joint swelling or deformity. -EXTREMITIES: No cyanosis, clubbing, or pedal edema. Left leg cellulitis NEUROLOGICAL: Gross neurological examination did not reveal any focal deficits. SKIN: No rashes. no petechiae. - Labs CBC & Chem 7: 03/05/23 07:43 03/05/23 07:43 Labs: Abnormal Lab Results - Last 24 Hours (Table) 03/04/23 03/04/23 03/04/23 Range/Units 11:17 11:17 11:17 WBC 15.9 H (3.8-10.6) k/uL RBC 3.22 L (4.30-5.90) m/uL Hgb 9.4 L (13.0-17.5) gm/dL Hct 28.5 L (39.0-53.0) % RDW 15.7 H (11.5-15.5) % Plt Count 133 L (150-450) k/uL Neutrophils # 13.8 H (1.3-7.7) k/uL Lymphocytes # 0.8 L (1.0-4.8) k/uL PT 37.0 H (10.0-12.5) sec INR 3.8 H (<1.2) Potassium 3.2 L (3.5-5.1) mmol/L Chloride 117 H (98-107) mmol/L Glucose 110 H (74-99) mg/dL POC Glucose (mg/dL) (70-110) mg/dL Calcium 7.4 L (8.4-10.2) mg/dL Iron 10 L (65-175) UG/DL TIBC 168 L (228-460) UG/DL % Saturation 5.95 L (15.00-50.00) Transferrin 120.0 L (204.0-354.0) mg/dL 03/04/23 03/04/23 03/04/23 Range/Units 11:23 16:27 20:12 WBC (3.8-10.6) k/uL RBC (4.30-5.90) m/uL Hgb (13.0-17.5) gm/dL Hct (39.0-53.0) % RDW (11.5-15.5) % Plt Count (150-450) k/uL Neutrophils # (1.3-7.7) k/uL Lymphocytes # (1.0-4.8) k/uL PT (10.0-12.5) sec INR (<1.2) Potassium (3.5-5.1) mmol/L Chloride (98-107) mmol/L Glucose (74-99) mg/dL POC Glucose (mg/dL) 124 H 121 H 127 H (70-110) mg/dL Calcium (8.4-10.2) mg/dL Iron (65-175) UG/DL TIBC (228-460) UG/DL % Saturation (15.00-50.00) Transferrin (204.0-354.0) mg/dL 03/05/23 03/05/23 Range/Units 01:48 07:43 WBC (3.8-10.6) k/uL RBC (4.30-5.90) m/uL Hgb (13.0-17.5) gm/dL Hct (39.0-53.0) % RDW (11.5-15.5) % Plt Count (150-450) k/uL Neutrophils # (1.3-7.7) k/uL Lymphocytes # (1.0-4.8) k/uL PT 34.5 H (10.0-12.5) sec INR 3.5 H (<1.2) Potassium (3.5-5.1) mmol/L Chloride (98-107) mmol/L Glucose (74-99) mg/dL POC Glucose (mg/dL) 126 H (70-110) mg/dL Calcium (8.4-10.2) mg/dL Iron (65-175) UG/DL TIBC (228-460) UG/DL % Saturation (15.00-50.00) Transferrin (204.0-354.0) mg/dL Microbiology - Last 24 Hours (Table) 03/02/23 06:15 Anaerobic Culture - Preliminary Heel - Left 03/02/23 06:15 Gram Stain - Final Foot - Left Wound Culture - Final 03/02/23 07:28 Blood Culture - Preliminary Blood Assessment and Plan Assessment: diabetic left heel ulcer stage 3 with surrounding cellulitis . Acute urinary tract infection. Urine culture: ESBL Klebsiella. Patient has indwelling Quezada catheter. UTI related to Quezada catheter Coagulopathy secondary to high INR Anemia, with worsening hemoglobin Paroxysmal atrial fibrillation on anticoagulation with Coumadin Acute kidney injury likely prerenal creatinine 1.68 and baseline 1.1 proved Generalized weakness and unable to ambulate without support. Hypoglycemia with uncontrolled diabetes type 2 insulin-dependent Coronary arteries with history of stent placement Hypertension Hyperlipidemia Dementia/cognitive impairment Stage II sacral decub ulcers. Plan: Continue with meropenem and IV vancomycin Follow-up repeat blood culture Infectious disease consult on the field nurse case manager INR and hemoglobin Anemia workup Labs and medication were reviewed.. Continue same treatment. Continue with symptomatic treatment. Resume home medication. Monitor labs and vitals. DVT and GI prophylaxis. Further recommendations as per clinical course of the patient DVT prophylaxis: on Coumadin GI Prophylaxis: Ppi PT/OT: Pending Prognosis is guarded
[2023-03-06 05:55] LABS: Glucose,Whole Blood 176 mg/dL (70-110)
--- NOTE | 2023-03-06 10:55 | P.PN ---
Subjective Patient is a 78-year-old male with a known history of coronary artery disease status post stent placement, atrial fibrillation on anticoagulation with Coumadin, hypertension, diabetes type 2 insulin-dependent, hyperlipidemia, COPD, gout and dementia who is currently at residential was sent to hospital due to worsening leukocytosis. Patient discharged from hospital recently on 02/09/2023 after treatment for left heel diabetic foot ulcer and surrounding cellulitis. Patient does have indwelling Quezada catheter. Cognitive impairment and could not provide much history. Patient's daughter is at bedside. Otherwise patient does not have any fever or chills. Denies any abdominal pain. No nausea vomiting or diarrhea. Chest x-ray showed no acute cardiopulmonary process/disease. Ankle x-ray showed 7 mm ossific density at the distal Achilles tendon on with mild thickening. Consider chronic insertional tendinopathy. Sequela of old injury to the medial malleolus. No vaughn lytic destruction identified to clearly indicate osteomyelitis. Laboratory data showed WBC 22.0 hemoglobin 13.0 and platelets 284 Sodium 136 potassium 3.9 chloride 97 bicarb is 31 BUN 60 and creatinine 1.68 and blood sugar 197. Liver enzymes are not elevated. Albumin 3.4 Urinalysis showed large leukocyte esterase nitrite positive with elevated WBCs 13 and occasional bacteria. Influenza A, B, RSV and COVID-19 PCR not detected. Recent urine cultures from 02/25/2023 showed gram-negative bacilli. 03/01/2023 Patient is lying in the bed. Awake alert and oriented x 1-2. Mentation is at baseline. Currently patient is room air. No complaints of leg pain. Patient does have indwelling Quezada catheter. Blood cultures showed gram- positive cocci and patient was started on vancomycin. Urine culture is pending. Patient has been afebrile. Wound care is following Patient remains on broad-spectrum antibiotics. ID is on board. Laboratory data showed WBC trending down to 22.0 hemoglobin 13.0 and platelets 284. Sodium 136 potassium 3.9 chloride 97 bicarb is 31 BUN 16 creatinine 1.68 and blood sugar 197. Urinalysis showed large leukocyte esterase with elevated WBC count. Patient does have chronic indwelling Quezada catheter. 03/02/2023 Patient is currently resting in the bed. Awake alert and mentation is at baseline.. Currently on room air. The patient has been afebrile. No complaints of chest pain or shortness of breath. No nausea vomiting or diarrhea noted. Patient is being continued on vancomycin due to gram-positive bacteremia. Turnout to be coagulase-negative staph. Antibiotics otherwise changed to Unasyn as per ID recommendations. Repeat urinalysis was ordered. Initial urine culture is showing gram-negative bacilli. ID is on board. 03/03/2023 Patient is mildly confused especially about time, he knows he is in hospital in [place] and he couldn't tell the name of the president He is admitted with left leg cellulitis and currently is covered with IV vancomycin and Unasyn No wound culture There was suspicion of UTI and urine culture is growing gram-negative bacilli He has positive blood culture 2 suspicious for contamination versus infection. No heart murmur is heard No evidence of bleeding. However his INR still high 4.0 today, hemoglobin went down to 11.4 down to 9.8 Going to repeat hemoglobin tonight and do anemia workup. C2 this morning and Levemir 15 units lower to 12 units 03/04/2039 Patient today is confused, mildly agitated but followed commands, looks somewhat upset and sleepy from pain medication Spell been treated for his left leg cellulitis and acute urinary tract infection Urine culture growing ESBL Klebsiella and his Unasyn was switched to meropenem based on sensitivity and continued with IV vancomycin for his left leg cellulitis Hemoglobin is stable at 10, repeat INR is pending today. Leukocytosis is improving to 16.6. His last fever 100.3 today. Blood culture shows staph epidermidis Anemia workup as ordered and is pending Discussed with staff and bedside nurse 03/05/2023 Patient still very weak and lethargic, distal also encephalopathic kind confused, he does not answer a lot of question and follow-up, only at certain times indicate in his delirium on the top of his encephalopathy. Most likely related to his sepsis from his left leg cellulitis and Urinary tract infection related to Quezada catheter. Urine culture is growing ESBL Klebsiella, and he is currently covered with IV m eropenem, IV vancomycin was stopped. Patient probably will need IV antibiotics upon discharge we checked renal ultrasound today which was negative for obstructive uropathy given his significant infection Also patient INR is 3.5. Hemoglobin 8.5. 03/06/2023 Patient more confused and lethargic today, he does not answers my questions or follow commands, his mentation also reported to be worse by family doctor daughter today. His aneurysm was 3.5, repeat INR today is still pending, going to order CT of the brain to rule out hemorrhage. His been treated also with meropenem for his left leg cellulitis, with leg looks less red ,s till warm, mild swelling , no much tenderness also has been treated for UTI with Quezada catheter in place. Culture is growing ESBL Klebsiella. Also for bacteremia with possible contamination. Patient still not eaten much, glucose controlled after we lowered his Levemir 10 units. Also his hands well and therefore we going to switch his fluid #75 mL down to D5 normal saline at 50 mL/h with close monitoring Today I talked to the daughter Gabriella [phone] per her request, all her questions were answered and I discussed the case with her updating her about thi s problem and management plan and she verbalized understanding and acceptance Review of systems CONSTITUTIONAL: No fever, no malaise, no fatigue. HEENT: No recent visual problems or hearing problems. Denied any sore throat. CARDIOVASCULAR: No orthopnea, PND, no palpitations, no syncope. PULMONARY: No shortness of breath, no cough, no hemoptysis. Active Medications Generic Name Dose Route Start Last Admin Trade Name Freq PRN Reason Stop Dose Admin Acetaminophen 650 mg 02/28/23 22:32 03/04/23 15:22 Acetaminophen Tab 325 Mg Tab PO 650 mg Q4H PRN Administration Fever and/ or Pain Hydrocodone Bitart/Acetaminophen 1 each 03/02/23 08:15 03/06/23 03:21 Hydrocodone/Apap 10-325mg 1 Each Tab PO 1 each Q6HR PRN Administration Pain Amlodipine Besylate 5 mg 03/03/23 09:00 03/06/23 09:45 Amlodipine 5 Mg Tab PO 5 mg BID@0900,2100 [facility] Administration Atorvastatin Calcium 80 mg 03/01/23 21:00 03/05/23 21:56 Atorvastatin 80 Mg Tab PO Not Given HS@2100 PRASANNA Buspirone HCl 15 mg 03/02/23 09:00 03/06/23 09:45 Buspirone Hcl 5 Mg Tab PO 15 mg DAILY@0900 [facility] Administration Calcium Acetate 667 mg 03/02/23 12:00 03/06/23 09:45 Calcium Acetate 667 Mg Tab PO 667 mg TID@0800,1200,1700 PRASANNA Administration Collagenase 1 applic 03/02/23 08:15 03/03/23 07:12 Collagenase 250 Unit/Gm Ointment 30 Gm Tube TOPICAL 1 applic DAILY PRN Administration LEFT HEEL WOUND Protocol Collagenase 1 applic 03/02/23 21:00 03/05/23 21:56 Collagenase 250 Unit/Gm Ointment 30 Gm Tube TOPICAL Not Given HS PRASANNA Protocol Dextrose/Water 25 ml 02/28/23 22:34 Dextrose 50% Syringe 50 Ml IVP PER PROTOCOL PRN Hypoglycemia Protocol Dextrose/Water 50 ml 02/28/23 22:34 Dextrose 50% Syringe 50 Ml IVP PER PROTOCOL PRN Hypoglycemia Protocol Donepezil HCl 10 mg 03/01/23 21:00 03/05/23 21:56 Donepezil 10 Mg Tab PO Not Given HS@2100 [facility] Gabapentin 200 mg 03/02/23 14:00 03/06/23 06:42 Gabapentin 100 Mg Cap PO 200 mg TID@0600,1400,2200 [facility] Administration Haloperidol Lactate 2 mg 03/02/23 00:29 Haloperidol Lactate 5 Mg/Ml 1 Ml Vial IM Q4HR PRN Agitation or Acute Psychosis Meropenem 1 gm/ Sodium 100 mls @ 33.3 mls/hr 03/04/23 10:30 03/06/23 09:45 Chloride IVPB 33.3 mls/hr Q8HR [facility] Administration Protocol Dextrose/Sodium Chloride 1,000 mls @ 50 mls/hr 03/06/23 10:45 Dextrose 5%-Ns Iv Soln IV .Q20H [facility] Insulin Aspart 0 unit 03/01/23 07:30 03/06/23 06:42 Insulin Aspart (Novolog) 100 Unit/Ml Vial SQ 1 unit ACHS [facility] Administration Protocol Insulin Detemir 10 unit 03/04/23 21:00 03/05/23 21:56 Insulin Detemir (Levemir) 100 Unit/Ml Syr SQ Not Given HS@2100 [facility] Metoprolol Tartrate 50 mg 03/01/23 09:00 03/06/23 09:45 Metoprolol Tartrate 50 Mg Tab PO 50 mg DAILY@0900 [facility] Administration Miscellaneous Information 0 each 03/01/23 02:32 Warfarin Per Pharmacy MISCELLANE DIRECTED PRN PER PROTOCOL Naloxone HCl 0.2 mg 02/28/23 14:53 Naloxone 0.4 Mg/Ml 1 Ml Vial IV Q2M PRN Opioid Reversal Pantoprazole Sodium 40 mg 03/01/23 07:30 03/06/23 06:42 Pantoprazole 40 Mg Tablet PO 40 mg AC-[id number] PRASANNA Administration Petrolatum 1 applic 03/01/23 23:25 03/01/23 23:44 Zinc Oxide Paste (Z-Guard) 1 Applic TOPICAL 1 applic Q2HR PRN Administration Wound Healing Protocol Quetiapine Fumarate 25 mg 03/02/23 00:30 03/05/23 21:57 Quetiapine 25 Mg Tab PO Not Given HS [facility] Objective - Vital Signs Vital signs: Vital Signs Temp 97.9 F 03/06/23 08:17 Pulse 93 03/06/23 08:17 Resp 19 03/06/23 08:17 BP 148/71 03/06/23 08:17 Pulse Ox 94 L 03/06/23 08:17 FiO2 Intake & Output 03/05/23 03/06/23 03/06/23 18:59 06:59 18:59 Output Total 550 450 Balance -550 -450 Output: Urine 550 450 Other: Voiding Method Indwelling Catheter Indwelling Catheter Indwelling Catheter - Exam -GENERAL: The patient is alert and oriented x2-3, not in any acute distress. Well developed, well nourished. HEENT: Pupils are round and equally reacting to light. EOMI. No scleral icterus. No conjunctival pallor. Normocephalic, atraumatic. No pharyngeal erythema. No thyromegaly. CARDIOVASCULAR: S1 and S2 present. No murmurs, rubs, or gallops. PULMONARY: Chest is clear to auscultation, no wheezing , no crackles. ABDOMEN: Soft, nontender, nondistended, normoactive bowel sounds. No palpable organomegaly. MUSCULOSKELETAL: No joint swelling or deformity. -EXTREMITIES: No cyanosis, clubbing, or pedal edema. Left leg cellulitis NEUROLOGICAL: Gross neurological examination did not reveal any focal deficits. SKIN: No rashes. no petechiae. - Labs CBC & Chem 7: 03/05/23 07:43 03/05/23 07:43 Labs: Abnormal Lab Results - Last 24 Hours (Table) 03/05/23 03/05/23 03/05/23 Range/Units 07:43 07:43 11:33 WBC 15.10 H (4.50-10.00) X 10*3/uL RBC 3.13 L (4.40-5.60) X 10*6/uL Hgb 8.5 L (13.0-17.0) g/dL Hct 28.7 L (39.6-50.0) % MCHC 29.6 L (32.0-37.0) g/dL RDW 16.0 H (11.5-14.5) % Plt Count 139 L (140-440) X 10*3/uL Immature Gran # 0.07 H (0.00-0.04) X 10*3/uL Neutrophils # 12.07 H (1.80-7.70) X 10*3/uL Monocytes # 1.02 H (0.20-1.00) X 10*3/uL Chloride 113 H (96-109) mmol/L Carbon Dioxide 20.9 L (21.6-31.8) mmol/L BUN/Creatinine Ratio 10.50 L (12.00-20.00) Ratio POC Glucose (mg/dL) 119 H (70-110) mg/dL Calcium 7.2 L (8.7-10.3) mg/dL 03/06/23 Range/Units 05:52 WBC (4.50-10.00) X 10*3/uL RBC (4.40-5.60) X 10*6/uL Hgb (13.0-17.0) g/dL Hct (39.6-50.0) % MCHC (32.0-37.0) g/dL RDW (11.5-14.5) % Plt Count (140-440) X 10*3/uL Immature Gran # (0.00-0.04) X 10*3/uL Neutrophils # (1.80-7.70) X 10*3/uL Monocytes # (0.20-1.00) X 10*3/uL Chloride (96-109) mmol/L Carbon Dioxide (21.6-31.8) mmol/L BUN/Creatinine Ratio (12.00-20.00) Ratio POC Glucose (mg/dL) 176 H (70-110) mg/dL Calcium (8.7-10.3) mg/dL Microbiology - Last 24 Hours (Table) 03/02/23 06:15 Anaerobic Culture - Final Heel - Left 03/02/23 07:28 Blood Culture - Preliminary Blood Assessment and Plan Assessment: diabetic left heel ulcer stage 3 with surrounding cellulitis . Acute urinary tract infection. Urine culture: ESBL Klebsiella. Patient has indwelling Quezada catheter. UTI related to Quezada catheter Coagulopathy secondary to high INR Anemia, with worsening hemoglobin Paroxysmal atrial fibrillation on anticoagulation with Coumadin Acute kidney injury likely prerenal creatinine 1.68 and baseline 1.1 proved Generalized weakness and unable to ambulate without support. Hypoglycemia with uncontrolled diabetes type 2 insulin-dependent Coronary arteries with history of stent placement Hypertension Hyperlipidemia Dementia/cognitive impairment Stage II sacral decub ulcers. Plan: Continue with meropenem Follow-up repeat blood culture Infectious disease consult on the continuous pillowcase cutter INR and hemoglobin Repeat CT of the brain Labs and medication were reviewed.. Continue same treatment. Continue with symptomatic treatment. Resume home medication. Monitor labs and vitals. DVT and GI prophylaxis. Further recommendations as per clinical course of the patient DVT prophylaxis: on Coumadin GI Prophylaxis: Ppi PT/OT: Pending Prognosis is guarded
[2023-03-06 11:11] LABS: Glucose,Whole Blood 155 mg/dL (70-110)
[2023-03-06 12:35] LABS: INR 3.4 (<1.2); Prothrombin Time 33.5 sec (10.0-12.5)
[2023-03-06] MEDS: DEXTROSE 5%-0.9% NACL 1,000 ML IV SCH (12:46)
[2023-03-06 12:55] LABS: African American GFR (CKD) >90 (>60 ml/min/1.73 sqM); Non-African American GFR(CKD) 84 (>60 ml/min/1.73 sqM)
[2023-03-06] MEDS: WARFARIN 0.5 MG TAB PO ONE (13:02)
--- NOTE | 2023-03-06 13:47 | CT ---
EXAMINATION TYPE: CT brain wo con DATE OF EXAM: 03/06/2023 COMPARISON: 02/03/2023 INDICATION: AMS DLP: 1124.4 mGycm, Automated exposure control for dose reduction was used. CONTRAST: None CT of the brain is performed utilizing 3 mm thick sections through the posterior fossa and 3 mm thick sections through the remaining calvarium. Study is performed within 24 hours of arrival to the hosp ital. No abnormal hyperdensity is present to suggest an acute intracranial hemorrhage. No mass lesion is evident. No acute infarcts are evident. Minimal periventricular white matter hypodensity is present, likely on the basis of chronic white matter ischemic changes. Findings appear stable from comparison. Ventricles and sulci are prominent for the patient age. Paranasal sinuses and mastoid air cells within the [id number] are clear. IMPRESSION: 1. Atrophy with minimal periventricular white matter ischemic changes, stable from comparison. 2. Follow-up MRI can be performed as clinically indicated.
--- NOTE | 2023-03-06 14:22 | CDI ---
Documentation Clarification Form Date: 03/06/2023 02:13:33 PM From: Zenia Bryan RN CCDS Phone: [phone] Admit Date: 02/28/2023 02:54:00 PM Patient Name: Morgan Plummer Visit Number: [id number] Discharge Date: ATTENTION: The Clinical Documentation Specialists (CDI) and [facility] Coding Staff appreciate your assistance in clarifying documentation. Please respond to the clarification below the line at the bottom and electronically sign. The CDI & [facility] Coding staff will review the response and follow-up if needed. Please note: Queries are made part of the Legal Health Record. If you have any questions, please contact the author of this message via ITS. Dr. Anthony Stephens Encephalopathy is documented 03/05 & 02/07, Medicine notes. Additional clarification regarding the type of encephalopathy is requested. History/Risk Factors: 78-year-old male presents to the ED from [facility] for elevated WBC count. Recent admission for left heel ulceration with infection. Medical History: COPD, DM, HLD, HTN, and Indwelling suarez catheter. 02/28, H&P Clinical Indicators: 03/05 & 03/06 Medicine progress note: Patient still very weak and lethargic, distal also encephalopathic kind confused, he does not answer a lot of question and follow-up, only at certain times indicate in his delirium on the top of his encephalopathy. diabetic left heel ulcer stage 3 with surrounding cellulitis . Acute urinary tract infection.Urine culture: ESBL Klebsiella.Patient has indwelling Suarez catheter.UTI related to Suarez catheter Labs 02/28: Wbc 22; Neutrophils 20.0; Plasma Lactic Acid Venous 2.0 Urine culture, 02/28: Klebsiella oxytoca Blood cultures, 02/28: Staphylococcus epidermidis Vitals signs, 02/28: B/P 118/63; HR 58; Temp 97.5F Oral; RR 18; SpO2 96% RA CT Brain, 03/06: Atrophy with minimal periventricular white matter ischemic changes, stable from comparison. Treatment: 02/28 Zoysn 3.375gm IVPB x1; Vancomycin 2,000mg IVPB x 1; 02/28 03/02 Zoysn 3.375GM IVPB Q8H; 03/01 Vancomycin 1,750mg IVPB Q24H; 03/02 03/04 Ampicillin IVPB Q6H; 03/04 Meropenem IVPB Q8HR Please clarify the type of encephalopathy, if known: [ x ] Metabolic Encephalopathy [ ] Other, please specify [ ] Unable to determine (Template Last Revised: April 2020) MTDD
--- NOTE | 2023-03-06 14:23 | CDI ---
Documentation Clarification Form Date: 03/06/2023 01:56:06 PM From: Zenia Bryan Phone: [phone] Admit Date: 02/28/2023 02:54:00 PM Patient Name: Morgan Plummer Visit Number: [id number] Discharge Date: ATTENTION: The Clinical Documentation Specialists (CDI) and [facility] Coding Staff appreciate your assistance in clarifying documentation. Please respond to the clarification below the line at the bottom and electronically sign. The CDI & [facility] Coding staff will review the response and follow-up if needed. Please note: Queries are made part of the Legal Health Record. If you have any questions, please contact the author of this message via ITS. Dr. Cruz E Sheet The patient has sepsis documented in Medicine note, 03/05. Based on this information and the findings below, is there an additional diagnosis that is clinically appropriate for this patient? History/Risk Factors: 78-year-old male presents to the ED from [facility] for elevated WBC count. Recent admission for left heel ulceration with infection. Medical History: COPD, DM, HLD, HTN, and Indwelling suarez catheter. 02/28, H&P Clinical Indicators: Labs 02/28: Wbc 22; Neutrophils 20.0; Plasma Lactic Acid Venous 2.0 Urine culture, 02/28: Klebsiella oxytoca Blood cultures, 02/28: Staphylococcus epidermidis Vitals signs, 02/28: B/P 118/63; HR 58; Temp 97.5F Oral; RR 18; SpO2 96% RA ID Consult, 03/01: elevated white count source is likely left heel wound with secondary cellulitis in this patient with likely stage III pressure ulcer at the wound base did have some slough tissue like responsible. Medicine note, 03/06: his delirium on the top of his encephalopathy. Most likely related to his sepsis from his left leg cellulitis and Urinary tract infection related to Suarez catheter. Urine culture is growing ESBL Klebsiella, and he is currently covered with IV meropenem, IV vancomycin was stopped Treatment: ID Consult: See above Antibiotics: 02/28 Zoysn 3.375gm IVPB x1; Vancomycin 2,000mg IVPB x 1; 02/28 03/02 Zoysn 3.375GM IVPB Q8H; 03/01 Vancomycin 1,750mg IVPB Q24H; 03/02 03/04 Ampicillin IVPB Q6H; 03/04 Meropenem IVPB Q8HR Fluids: 02/28 03/06 0.9NS IV 75CC/HR Is there an additional diagnosis that is clinically appropriate for this patient? [x ] Sepsis, present on admission. Patient had fever and leukocytosis [ ] Sepsis, developed during stay, not present on admission [ ] Sepsis ruled out [ ] SIRS, without underlying infectious process [ ] Other, please specify [ ] Unable to determine SIRS Criteria: 2 or more of the following may indicate SIRS Temperature < 96.8F (36C) or > 101.0F (38.3C) Heart Rate > 90 bpm Respiratory Rate > 20 breaths/min or PaCO2 < 32 mmHg White Blood Cell Count > 12,000 or < 4,000 cells/mm3 or > 10% bands (Template Last Reviewed: February 2022) MTDD
[2023-03-06 16:32] LABS: Glucose,Whole Blood 291 mg/dL (70-110)
[2023-03-06 19:47] LABS: Glucose,Whole Blood 268 mg/dL (70-110)
[2023-03-07 06:14] LABS: Glucose,Whole Blood 178 mg/dL (70-110)
[2023-03-07 11:05] LABS: Glucose,Whole Blood 147 mg/dL (70-110)
--- NOTE | 2023-03-07 12:22 | P.PN ---
Subjective Progress Note Date: 03/06/23 Principal diagnosis: Reason for follow-up is left lower extremity cellulitis UTI and bacteremia Patient is a 78-year-old male with a past medical history significant for diabetes mellitus hypertension hyperlipidemia [place] patient was brought into the hospital from the local [place] [facility] concerning for elevated white count, patient did have a left hip ulceration noted to have a cellulitis to the left lower extremity also have a chronic indwelling Quezada catheter with a positive UA and blood cultures came back positive with gram-positive cocci. On today's evaluation that is 03/06/2023 the patient remains to be afebrile, the patient is breathing comfortably on room air, the patient slightly lethargic sleepy and not a good historian, no vomiting diarrhea or any other changes reported by the nursing staff Patient white count is down to 15.10 as of 03/05/2023, creatinine is 0.85 urine is growing ESBL Klebsiella, blood culture with the 2 out of 2 staph epi Objective - Vital Signs Vital signs: Vital Signs Temp 97.9 F 03/06/23 08:17 Pulse 93 03/06/23 08:17 Resp 19 03/06/23 08:17 BP 148/71 03/06/23 08:17 Pulse Ox 94 L 03/06/23 08:17 FiO2 Intake & Output 03/05/23 03/06/23 03/06/23 18:59 06:59 18:59 Output Total 550 450 Balance -550 -450 Output: Urine 550 450 Other: Voiding Method Indwelling Catheter Indwelling Catheter Indwelling Catheter - Exam GENERAL DESCRIPTION: An elderly male lying in bed in no distress RESPIRATORY SYSTEM: Unlabored breathing , decreased breath sounds at bases HEART: S1 S2 regular rate and rhythm , ABDOMEN: Soft , no tenderness EXTREMITIES: Right posterior heel with a stage II pressure ulcer minimal slough tissue no surrounding redness - Labs CBC & Chem 7: 03/05/23 07:43 03/06/23 11:46 Labs: Abnormal Lab Results - Last 24 Hours (Table) 03/06/23 03/06/23 03/06/23 Range/Units 05:52 11:11 11:46 PT 33.5 H (10.0-12.5) sec INR 3.4 H (<1.2) POC Glucose (mg/dL) 176 H 155 H (70-110) mg/dL Microbiology - Last 24 Hours (Table) 03/02/23 06:15 Anaerobic Culture - Final Heel - Left 03/02/23 07:28 Blood Culture - Preliminary Blood Assessment and Plan (1) Left leg cellulitis Current Visit: Yes Status: Acute Code(s): L03.116 - CELLULITIS OF LEFT LOWER LIMB SNOMED Code(s): 80929689972644480 (2) UTI (urinary tract infection) Current Visit: Yes Status: Acute Code(s): N39.0 - URINARY TRACT INFECTION, SITE NOT SPECIFIED SNOMED Code(s): 92814621 (3) Positive blood culture Current Visit: Yes Status: Acute Code(s): R78.81 - BACTEREMIA SNOMED Code(s): 484106824 (4) Leukocytosis Current Visit: Yes Status: Acute Code(s): D72.829 - ELEVATED WHITE BLOOD CELL COUNT, UNSPECIFIED SNOMED Code(s): 831354180 (5) Ulcer of left foot Current Visit: No Status: Acute Code(s): L97.529 - NON-PRESSURE CHRONIC ULCER OTH PRT LEFT FOOT W UNSP SEVERITY SNOMED Code(s): 324598230 Plan: 1patient presented to the hospital with elevated white count with initial concern for possible left heel ulcer and cellulitis however the patient also have a positive UA and there was concern for catheter associated UTI 2positive blood culture 2 out of 2 staph epi question of contamination, repeat blood culture has been negative, vancomycin has been discontinued 3-patient local wound care to the right posterior heel wound with the Santyl followed by moist dressing keep the area of the pressure 4-positive urine culture ESBL Klebsiella, ultrasound of the kidney bladder did not show any abscess or obstructive uropathy 5patient continue with the meropenem and monitor clinical course closely Dictation was produced using [employer] dictation software. please excuse any grammatical, word or spelling errors. Time with Patient: Less than 30
--- NOTE | 2023-03-07 12:23 | P.PN ---
Subjective Progress Note Date: 03/07/23 Principal diagnosis: Reason for follow-up is left lower extremity cellulitis UTI and bacteremia Patient is a 78-year-old male with a past medical history significant for diabetes mellitus hypertension hyperlipidemia [place] patient was [facility] concerning for elevated white count, patient did have a left hip ulceration noted to have a cellulitis to the left lower extremity also have a chronic indwelling Quezada catheter with a positive UA and blood cultures came back positive with gram-positive cocci. On today's evaluation that is 03/07/2023, the patient denies having any fever or any chills, the patient is currently breathing comfortably on room air, the patient is sleepy but arousable patient denies having any chest pain or cough, denies any nausea vomiting no abdominal pain no diarrhea. Patient white count of 15.10 as of 03/05/2023 no CBC has been done today, repeat blood culture has been negative Objective - Vital Signs Vital signs: Vital Signs Temp 98.2 F 03/07/23 06:58 Pulse 89 03/07/23 08:00 Resp 18 03/07/23 08:00 BP 151/66 03/07/23 06:58 Pulse Ox 96 03/07/23 06:58 FiO2 Intake & Output 03/06/23 03/07/23 03/07/23 18:59 06:59 18:59 Output Total 350 200 550 Balance -350 -200 -550 Weight 95.254 kg Output: Urine 200 200 Stool 350 350 Other: Voiding Method Indwelling Catheter Indwelling Catheter Indwelling Catheter # Voids 1 - Exam GENERAL DESCRIPTION: An elderly male lying in bed in no distress RESPIRATORY SYSTEM: Unlabored breathing , decreased breath sounds at bases HEART: S1 S2 regular rate and rhythm , ABDOMEN: Soft , no tenderness EXTREMITIES: Right posterior heel with a stage II pressure ulcer minimal slough tissue no surrounding redness - Labs CBC & Chem 7: 03/05/23 07:43 03/06/23 11:46 Labs: Abnormal Lab Results - Last 24 Hours (Table) 03/06/23 03/06/23 03/06/23 Range/Units 11:46 16:31 19:44 PT 33.5 H (10.0-12.5) sec INR 3.4 H (<1.2) POC Glucose (mg/dL) 291 H 268 H (70-110) mg/dL 03/07/23 03/07/23 Range/Units 06:12 11:03 PT (10.0-12.5) sec INR (<1.2) POC Glucose (mg/dL) 178 H 147 H (70-110) mg/dL Microbiology - Last 24 Hours (Table) 03/02/23 06:15 Anaerobic Culture - Final Heel - Left Assessment and Plan (1) Left leg cellulitis Current Visit: Yes Status: Acute Code(s): L03.116 - CELLULITIS OF LEFT LOWER LIMB SNOMED Code(s): 75316987110510607 (2) UTI (urinary tract infection) Current Visit: Yes Status: Acute Code(s): N39.0 - URINARY TRACT INFECTION, SITE NOT SPECIFIED SNOMED Code(s): 71893657 (3) Positive blood culture Current Visit: Yes Status: Acute Code(s): R78.81 - BACTEREMIA SNOMED Code(s): 644373735 (4) Leukocytosis Current Visit: Yes Status: Acute Code(s): D72.829 - ELEVATED WHITE BLOOD CELL COUNT, UNSPECIFIED SNOMED Code(s): 079306108 (5) Ulcer of left foot Current Visit: No Status: Acute Code(s): L97.529 - NON-PRESSURE CHRONIC ULCER OTH PRT LEFT FOOT W UNSP SEVERITY SNOMED Code(s): 926707610 Plan: 1patient presented to the hospital with elevated white count with initial concern for possible left heel ulcer and cellulitis however the patient also merino ve a positive UA and there was concern for catheter associated UTI 2positive blood culture 2 out of 2 staph epi question of contamination, repeat blood culture has been negative, vancomycin has been discontinued 3-patient local wound care to the right posterior heel wound with the Santyl followed by moist dressing keep the area of the pressure 4-positive urine culture ESBL Klebsiella, ultrasound of the kidney bladder did not show any abscess or obstructive uropathy 5patient continue with the meropenem, will need midline for outpatient IV antibiotic therapy we will repeat a CBC to make sure the white count is trending down Dictation was produced using [employer] dictation software. please excuse any grammatical, word or spelling errors. Time with Patient: Less than 30
[2023-03-07 17:14] LABS: Glucose,Whole Blood 143 mg/dL (70-110)
[2023-03-07 19:22] LABS: African American GFR (CKD) >90 (>60 ml/min/1.73 sqM); Anion Gap 6 mmol/L; Blood Urea Nitrogen 7 mg/dL (9-20); Calcium 7.6 mg/dL (8.4-10.2); Carbon Dioxide 23 mmol/L (22-30); Chloride 112 mmol/L (98-107); Glucose 129 mg/dL (74-99); Non-African American GFR(CKD) >90 (>60 ml/min/1.73 sqM); Potassium 3.5 mmol/L (3.5-5.1); Sodium 141 mmol/L (137-145)
[2023-03-07 19:38] LABS: Basophils % (A) 0 %; Eosinophils # (A) 0.1 k/uL (0-0.7); Eosinophils % (A) 1 %; HGB 9.6 gm/dL (13.0-17.5); Hypochromasia Moderate; Lymphocytes % (A) 10 %; MCH 28.1 pg (25.0-35.0); MCHC 32.1 g/dL (31.0-37.0); MCV 87.6 fL (80.0-100.0); Monocytes # (A) 0.4 k/uL (0-1.0); Monocytes % (A) 4 %; Neutrophils # (A) 8.1 k/uL (1.3-7.7); Neutrophils % (A) 82 %; Platelet Count 210 k/uL (150-450); RBC 3.43 m/uL (4.30-5.90); RDW 15.4 % (11.5-15.5); WBC 9.8 k/uL (3.8-10.6)
[2023-03-07 19:41] LABS: Prothrombin Time 29.9 sec (10.0-12.5)
[2023-03-07 20:09] LABS: Glucose,Whole Blood 146 mg/dL (70-110)
[2023-03-07] MEDS: WARFARIN 1 MG TAB PO ONE (21:21)
--- NOTE | 2023-03-08 05:34 | P.PN ---
Subjective Patient is a 78-year-old male with a known history of coronary artery disease status post stent placement, atrial fibrillation on anticoagulation with Coumadin, hypertension, diabetes type 2 insulin-dependent, hyperlipidemia, COPD, gout and dementia who is currently at correction was sent to hospital due to worsening leukocytosis. Patient discharged from hospital recently on 02/09/2023 after treatment for left heel diabetic foot ulcer and surrounding cellulitis. Patient does have indwelling Quezada catheter. Cognitive impairment and could not provide much history. Patient's daughter is at bedside. Otherwise patient does not have any fever or chills. Denies any abdominal pain. No nausea vomiting or diarrhea. Chest x-ray showed no acute cardiopulmonary process/disease. Ankle x-ray showed 7 mm ossific density at the distal Achilles tendon on with mild thickening. Consider chronic insertional tendinopathy. Sequela of old injury to the medial malleolus. No vaughn lytic destruction identified to clearly indicate osteomyelitis. Laboratory data showed WBC 22.0 hemoglobin 13.0 and platelets 284 Sodium 136 potassium 3.9 chloride 97 bicarb is 31 BUN 60 and creatinine 1.68 and blood sugar 197. Liver enzymes are not elevated. Albumin 3.4 Urinalysis showed large leukocyte esterase nitrite positive with elevated WBCs 13 and occasional bacteria. Influenza A, B, RSV and COVID-19 PCR not detected. Recent urine cultures from 02/25/2023 showed gram-negative bacilli. 03/01/2023 Patient is lying in the bed. Awake alert and oriented x 1-2. Mentation is at baseline. Currently patient is room air. No complaints of leg pain. Patient does have indwelling Quezada catheter. Blood cultures showed gram- positive cocci and patient was started on vancomycin. Urine culture is pending. Patient has been afebrile. Wound care is following Patient remains on broad-spectrum antibiotics. ID is on board. Laboratory data showed WBC trending down to 22.0 hemoglobin 13.0 and platelets 284. Sodium 136 potassium 3.9 chloride 97 bicarb is 31 BUN 16 creatinine 1.68 and blood sugar 197. Urinalysis showed large leukocyte esterase with elevated WBC count. Patient does have chronic indwelling Quezada catheter. 03/02/2023 Patient is currently resting in the bed. Awake alert and mentation is at baseline.. Currently on room air. The patient has been afebrile. No complaints of chest pain or shortness of breath. No nausea vomiting or diarrhea noted. Patient is being continued on vancomycin due to gram-positive bacteremia. Turnout to be coagulase-negative staph. Antibiotics otherwise changed to Unasyn as per ID recommendations. Repeat urinalysis was ordered. Initial urine culture is showing gram-negative bacilli. ID is on board. 03/03/2023 Patient is mildly confused especially about time, he knows he is in hospital in [place] and he couldn't tell the name of the president He is admitted with left leg cellulitis and currently is covered with IV vancomycin and Unasyn No wound culture There was suspicion of UTI and urine culture is growing gram-negative bacilli He has positive blood culture 2 suspicious for contamination versus infection. No heart murmur is heard No evidence of bleeding. However his INR still high 4.0 today, hemoglobin went down to 11.4 down to 9.8 Going to repeat hemoglobin tonight and do anemia workup. C2 this morning and Levemir 15 units lower to 12 units 03/04/2039 Patient today is confused, mildly agitated but followed commands, looks somewhat upset and sleepy from pain medication Spell been treated for his left leg cellulitis and acute urinary tract infection Urine culture growing ESBL Klebsiella and his Unasyn was switched to meropenem based on sensitivity and continued with IV vancomycin for his left leg cellulitis Hemoglobin is stable at 10, repeat INR is pending today. Leukocytosis is improving to 16.6. His last fever 100.3 today. Blood culture shows staph epidermidis Anemia workup as ordered and is pending Discussed with staff and bedside nurse 03/05/2023 Patient still very weak and lethargic, distal also encephalopathic kind confused, he does not answer a lot of question and follow-up, only at certain times indicate in his delirium on the top of his encephalopathy. Most likely related to his sepsis from his left leg cellulitis and Urinary tract infection related to Quezada catheter. Urine culture is growing ESBL Klebsiella, and he is currently covered with IV m eropenem, IV vancomycin was stopped. Patient probably will need IV antibiotics upon discharge we checked renal ultrasound today which was negative for obstructive uropathy given his significant infection Also patient INR is 3.5. Hemoglobin 8.5. 03/06/2023 Patient more confused and lethargic today, he does not answers my questions or follow commands, his mentation also reported to be worse by family doctor daughter today. His aneurysm was 3.5, repeat INR today is still pending, going to order CT of the brain to rule out hemorrhage. His been treated also with meropenem for his left leg cellulitis, with leg looks less red ,s till warm, mild swelling , no much tenderness also has been treated for UTI with Quezada catheter in place. Culture is growing ESBL Klebsiella. Also for bacteremia with possible contamination. Patient still not eaten much, glucose controlled after we lowered his Levemir 10 units. Also his hands well and therefore we going to switch his fluid #75 mL down to D5 normal saline at 50 mL/h with close monitoring Today I talked to the daughter Gabirella [phone] per her request, all her questions were answered and I discussed the case with her updating her about thi s problem and management plan and she verbalized understanding and acceptance 03/07/2023 Patient awake still slow to answer questions. He still looks somewhat confused and he got agitation at time at bedside and states that he has dementia more than 6 years which is slowly progressive and may be contributing to his slow recovery. He denies specific symptoms. No chest pain or dyspnea. He is afebrile and hemodynamically stable. Leukocytosis back to normal today 15.1 down to 9.8. Hemoglobin stable 9.6. INR 3.0 and patient is going to 1 mg of warfarin tonight. BNP is unremarkable. Patient remains on meropenem with the plan for outpatient IV antibiotic. His home dose of insulin 15 units lower to 10 units because patient was not eating much because of his infection and mental status. Glucose currently controlled Objective - Vital Signs Vital signs: Vital Signs Temp 98.2 F 03/07/23 06:58 Pulse 89 03/07/23 08:00 Resp 18 03/07/23 08:00 BP 151/66 03/07/23 06:58 Pulse Ox 96 03/07/23 06:58 FiO2 Intake & Output 03/06/23 03/07/23 03/07/23 18:59 06:59 18:59 Output Total 350 200 550 Balance -350 -200 -550 Weight 95.254 kg Output: Urine 200 200 Stool 350 350 Other: Voiding Method Indwelling Catheter Indwelling Catheter Indwelling Catheter # Voids 1 - Exam -GENERAL: The patient is alert and oriented x2-3, not in any acute distress. Well developed, well nourished. HEENT: Pupils are round and equally reacting to light. EOMI. No scleral icterus. No conjunctival pallor. Normocephalic, atraumatic. No pharyngeal erythema. No thyromegaly. CARDIOVASCULAR: S1 and S2 present. No murmurs, rubs, or gallops. PULMONARY: Chest is clear to auscultation, no wheezing , no crackles. ABDOMEN: Soft, nontender, nondistended, normoactive bowel sounds. No palpable organomegaly. MUSCULOSKELETAL: No joint swelling or deformity. -EXTREMITIES: No cyanosis, clubbing, or pedal edema. Left leg cellulitis NEUROLOGICAL: Gross neurological examination did not reveal any focal deficits. SKIN: No rashes. no petechiae. - Labs CBC & Chem 7: 03/07/23 18:54 03/07/23 18:54 Labs: Abnormal Lab Results - Last 24 Hours (Table) 03/06/23 03/06/23 03/07/23 Range/Units 16:31 19:44 06:12 POC Glucose (mg/dL) 291 H 268 H 178 H (70-110) mg/dL 03/07/23 Range/Units 11:03 POC Glucose (mg/dL) 147 H (70-110) mg/dL Microbiology - Last 24 Hours (Table) 03/02/23 07:28 Blood Culture - Final Blood 03/02/23 06:15 Anaerobic Culture - Final Heel - Left Assessment and Plan Assessment: diabetic left heel ulcer stage 3 with surrounding cellulitis . Acute urinary tract infection. Urine culture: ESBL Klebsiella. Patient has indwelling Quezada catheter. UTI related to Quezada catheter Coagulopathy secondary to high INR Anemia, with worsening hemoglobin Paroxysmal atrial fibrillation on anticoagulation with Coumadin Acute kidney injury likely prerenal creatinine 1.68 and baseline 1.1 proved Generalized weakness and unable to ambulate without support. Hypoglycemia with uncontrolled diabetes type 2 insulin-dependent Coronary arteries with history of stent placement Hypertension Hyperlipidemia Dementia/cognitive impairment Stage II sacral decub ulcers. Plan: Continue with meropenem Follow-up repeat blood culture Infectious disease consult on the window caser INR and hemoglobin Continue with insulin 10 units in monitor glucose Labs and medication were reviewed.. Continue same treatment. Continue with symptomatic treatment. Resume home medication. Monitor labs and vitals. DVT a nd GI prophylaxis. Further recommendations as per clinical course of the patient DVT prophylaxis: on Coumadin GI Prophylaxis: Ppi PT/OT: Pending Prognosis is guarded
[2023-03-08 06:03] LABS: Glucose,Whole Blood 78 mg/dL (70-110)
[2023-03-08 07:20] LABS: INR 3.4 (<1.2); Prothrombin Time 33.4 sec (10.0-12.5)
[2023-03-08 11:06] LABS: Basophils # (A) 0.02 X 10*3/uL (0.00-0.10); Basophils % (A) 0.2 %; Eosinophils # (A) 0.14 X 10*3/uL (0.04-0.35); Eosinophils % (A) 1.4 %; HCT 27.3 % (39.6-50.0); HGB 8.4 g/dL (13.0-17.0); Lymphocytes # (A) 1.93 X 10*3/uL (0.90-5.00); Lymphocytes % (A) 19.4 %; MCH 26.8 pg (27.0-32.0); MCHC 30.8 g/dL (32.0-37.0); MCV 87.2 FL (80.0-97.0); Mean Platelet Volume 10.2 FL (9.5-12.2); Monocytes # (A) 0.82 X 10*3/uL (0.20-1.00); Monocytes % (A) 8.2 %; NRBC Per 100 WBC 0 X 10*3/uL (0.00-0.01); Neutrophils # (A) 6.99 X 10*3/uL (1.80-7.70); Neutrophils % (A) 70.4 %; Platelet Count 203 X 10*3/uL (140-440); RBC 3.13 X 10*6/uL (4.40-5.60); RDW 15.9 % (11.5-14.5); WBC 9.94 X 10*3/uL (4.50-10.00)
[2023-03-08 11:26] LABS: BUN/Creat Ratio 9.14 Ratio (12.00-20.00); Blood Urea Nitrogen 6.4 mg/dL (9.0-27.0); Calcium 7.5 mg/dL (8.7-10.3); Carbon Dioxide 26.5 mmol/L (21.6-31.8); Chloride 120 mmol/L (96-109); Glucose 68 mg/dL (70-110); Potassium 3.4 mmol/L (3.5-5.5); Sodium 154 mmol/L (135-145)
[2023-03-08 11:57] LABS: Glucose,Whole Blood 96 mg/dL (70-110)
--- NOTE | 2023-03-08 15:53 | P.PN ---
Subjective Progress Note Date: 03/08/23 Principal diagnosis: Reason for follow-up is left lower extremity cellulitis UTI and bacteremia Patient is a 78-year-old male with a past medical history significant for diabetes mellitus hypertension hyperlipidemia [place] patient was brought into the hospital from the local intermediate concerning for elevated white count, patient did have a left hip ulceration noted to have a cellulitis to the left lower extremity also have a chronic indwelling Quezada catheter with a positive UA and blood cultures came back positive with gram-positive cocci. On today's evaluation that is 03/08/2023, patient remains to be afebrile, the patient is breathing comfortably on room air patient is slightly groggy today and did not answer any question seem to be complaining about everything no vomiting or diarrhea has been reported. Patient did have white count of 9.94, creatinine 0.7, repeat blood culture negative Objective - Vital Signs Vital signs: Vital Signs Temp 98.0 F 03/08/23 07:55 Pulse 94 03/08/23 07:55 Resp 19 03/08/23 07:55 BP 179/64 03/08/23 07:55 Pulse Ox 99 03/08/23 07:55 FiO2 Intake & Output 03/07/23 03/08/23 03/08/23 18:59 06:59 18:59 Intake Total 240 Output Total 1000 800 Balance -1000 240 -800 Intake: Oral 240 Output: Urine 650 800 Stool 350 Other: Voiding Method Indwelling Catheter Indwelling Catheter Indwelling Catheter # Voids 1 - Exam GENERAL DESCRIPTION: An elderly male lying in bed in no distress RESPIRATORY SYSTEM: Unlabored breathing , decreased breath sounds at bases HEART: S1 S2 regular rate and rhythm , ABDOMEN: Soft , no tenderness EXTREMITIES: Right posterior heel with a stage II pressure ulcer minimal slough tissue no surrounding redness - Labs CBC & Chem 7: 03/08/23 06:40 03/08/23 06:40 Labs: Abnormal Lab Results - Last 24 Hours (Table) 03/07/23 03/07/23 03/07/23 Range/Units 17:12 18:54 18:54 RBC 3.43 L (4.30-5.90) m/uL Hgb 9.6 L (13.0-17.5) gm/dL Hct 30.0 L (39.0-53.0) % MCH (27.0-32.0) pg MCHC (32.0-37.0) g/dL RDW (11.5-14.5) % Neutrophils # 8.1 H (1.3-7.7) k/uL PT (10.0-12.5) sec INR (<1.2) Sodium (135-145) mmol/L Potassium (3.5-5.5) mmol/L Chloride 112 H (98-107) mmol/L BUN 7 L (9-20) mg/dL BUN/Creatinine Ratio (12.00-20.00) Ratio Glucose 129 H (74-99) mg/dL POC Glucose (mg/dL) 143 H (70-110) mg/dL Calcium 7.6 L (8.4-10.2) mg/dL C-Reactive Protein (0.00-0.80) mg/dL 03/07/23 03/07/23 03/08/23 Range/Units 18:54 19:55 06:40 RBC (4.30-5.90) m/uL Hgb (13.0-17.5) gm/dL Hct (39.0-53.0) % MCH (27.0-32.0) pg MCHC (32.0-37.0) g/dL RDW (11.5-14.5) % Neutrophils # (1.3-7.7) k/uL PT 29.9 H 33.4 H (10.0-12.5) sec INR 3.0 H 3.4 H (<1.2) Sodium (135-145) mmol/L Potassium (3.5-5.5) mmol/L Chloride (98-107) mmol/L BUN (9-20) mg/dL BUN/Creatinine Ratio (12.00-20.00) Ratio Glucose (74-99) mg/dL POC Glucose (mg/dL) 146 H (70-110) mg/dL Calcium (8.4-10.2) mg/dL C-Reactive Protein (0.00-0.80) mg/dL 03/08/23 03/08/23 Range/Units 06:40 06:40 RBC 3.13 L (4.30-5.90) m/uL Hgb 8.4 L (13.0-17.5) gm/dL Hct 27.3 L (39.0-53.0) % MCH 26.8 L (27.0-32.0) pg MCHC 30.8 L (32.0-37.0) g/dL RDW 15.9 H (11.5-14.5) % Neutrophils # (1.3-7.7) k/uL PT (10.0-12.5) sec INR (<1.2) Sodium 154 H (135-145) mmol/L Potassium 3.4 L (3.5-5.5) mmol/L Chloride 120 H (98-107) mmol/L BUN 6.4 L (9-20) mg/dL BUN/Creatinine Ratio 9.14 L (12.00-20.00) Ratio Glucose 68 L (74-99) mg/dL POC Glucose (mg/dL) (70-110) mg/dL Calcium 7.5 L (8.4-10.2) mg/dL C-Reactive Protein 19.90 H (0.00-0.80) mg/dL Microbiology - Last 24 Hours (Table) 03/02/23 07:28 Blood Culture - Final Blood Assessment and Plan (1) Left leg cellulitis Current Visit: Yes Status: Acute Code(s): L03.116 - CELLULITIS OF LEFT LOWER LIMB SNOMED Code(s): 72937212032949877 (2) UTI (urinary tract infection) Current Visit: Yes Status: Acute Code(s): N39.0 - URINARY TRACT INFECTION, SITE NOT SPECIFIED SNOMED Code(s): 81625257 (3) Positive blood culture Current Visit: Yes Status: Acute Code(s): R78.81 - BACTEREMIA SNOMED Code(s): 539132225 (4) Leukocytosis Current Visit: Yes Status: Acute Code(s): D72.829 - ELEVATED WHITE BLOOD CELL COUNT, UNSPECIFIED SNOMED Code(s): 240620123 (5) Ulcer of left foot Current Visit: No Status: Acute Code(s): L97.529 - NON-PRESSURE CHRONIC ULCER OTH PRT LEFT FOOT W UNSP SEVERITY SNOMED Code(s): 144873774 Plan: 1patient presented to the hospital with elevated white count with initial concern for possible left heel ulcer and cellulitis however the patient also have a positive UA and there was concern for catheter associated UTI 2positive blood culture 2 out of 2 staph epi question of contamination, repeat blood culture has been negative, vancomycin has been discontinued 3-patient local wound care to the right posterior heel wound with the Santyl followed by moist dressing keep the area of the pressure 4-positive urine culture ESBL Klebsiella, ultrasound of the kidney bladder did not show any abscess or obstructive uropathy 5patient did have some clinical improvement and will continue with the meropenem, plan is to finish therapy with IV Invanz duration of antibiotic about 7 to 10 days on discharge Dictation was produced using [employer] dictation software. please excuse any grammatical, word or spelling errors. Time with Patient: Less than 30
[2023-03-08 16:54] LABS: Glucose,Whole Blood 140 mg/dL (70-110)
[2023-03-08] MEDS: WARFARIN 0.5 MG TAB PO ONE (17:32)
[2023-03-08] MEDS: HALOPERIDOL LACTATE 5 MG/ML 1 ML VIAL IM PRN (22:00)
--- NOTE | 2023-03-09 07:18 | P.PN ---
Subjective Patient is a 78-year-old male with a known history of coronary artery disease status post stent placement, atrial fibrillation on anticoagulation with Coumadin, hypertension, diabetes type 2 insulin-dependent, hyperlipidemia, COPD, gout and dementia who is currently at senior living was sent to hospital due to worsening leukocytosis. Patient discharged from hospital recently on 02/09/2023 after treatment for left heel diabetic foot ulcer and surrounding cellulitis. Patient does have indwelling Quezada catheter. Cognitive impairment and could not provide much history. Patient's daughter is at bedside. Otherwise patient does not have any fever or chills. Denies any abdominal pain. No nausea vomiting or diarrhea. Chest x-ray showed no acute cardiopulmonary process/disease. Ankle x-ray showed 7 mm ossific density at the distal Achilles tendon on with mild thickening. Consider chronic insertional tendinopathy. Sequela of old injury to the medial malleolus. No vaughn lytic destruction identified to clearly indicate osteomyelitis. Laboratory data showed WBC 22.0 hemoglobin 13.0 and platelets 284 Sodium 136 potassium 3.9 chloride 97 bicarb is 31 BUN 60 and creatinine 1.68 and blood sugar 197. Liver enzymes are not elevated. Albumin 3.4 Urinalysis showed large leukocyte esterase nitrite positive with elevated WBCs 13 and occasional bacteria. Influenza A, B, RSV and COVID-19 PCR not detected. Recent urine cultures from 02/25/2023 showed gram-negative bacilli. 03/01/2023 Patient is lying in the bed. Awake alert and oriented x 1-2. Mentation is at baseline. Currently patient is room air. No complaints of leg pain. Patient does have indwelling Quezada catheter. Blood cultures showed gram- positive cocci and patient was started on vancomycin. Urine culture is pending. Patient has been afebrile. Wound care is following Patient remains on broad-spectrum antibiotics. ID is on board. Laboratory data showed WBC trending down to 22.0 hemoglobin 13.0 and platelets 284. Sodium 136 potassium 3.9 chloride 97 bicarb is 31 BUN 16 creatinine 1.68 and blood sugar 197. Urinalysis showed large leukocyte esterase with elevated WBC count. Patient does have chronic indwelling Quezada catheter. 03/02/2023 Patient is currently resting in the bed. Awake alert and mentation is at baseline.. Currently on room air. The patient has been afebrile. No complaints of chest pain or shortness of breath. No nausea vomiting or diarrhea noted. Patient is being continued on vancomycin due to gram-positive bacteremia. Turnout to be coagulase-negative staph. Antibiotics otherwise changed to Unasyn as per ID recommendations. Repeat urinalysis was ordered. Initial urine culture is showing gram-negative bacilli. ID is on board. 03/03/2023 Patient is mildly confused especially about time, he knows he is in hospital in [place] and he couldn't tell the name of the president He is admitted with left leg cellulitis and currently is covered with IV vancomycin and Unasyn No wound culture There was suspicion of UTI and urine culture is growing gram-negative bacilli He has positive blood culture 2 suspicious for contamination versus infection. No heart murmur is heard No evidence of bleeding. However his INR still high 4.0 today, hemoglobin went down to 11.4 down to 9.8 Going to repeat hemoglobin tonight and do anemia workup. C2 this morning and Levemir 15 units lower to 12 units 03/04/2039 Patient today is confused, mildly agitated but followed commands, looks somewhat upset and sleepy from pain medication Spell been treated for his left leg cellulitis and acute urinary tract infection Urine culture growing ESBL Klebsiella and his Unasyn was switched to meropenem based on sensitivity and continued with IV vancomycin for his left leg cellulitis Hemoglobin is stable at 10, repeat INR is pending today. Leukocytosis is improving to 16.6. His last fever 100.3 today. Blood culture shows staph epidermidis Anemia workup as ordered and is pending Discussed with staff and bedside nurse 03/05/2023 Patient still very weak and lethargic, distal also encephalopathic kind confused, he does not answer a lot of question and follow-up, only at certain times indicate in his delirium on the top of his encephalopathy. Most likely related to his sepsis from his left leg cellulitis and Urinary tract infection related to Quezada catheter. Urine culture is growing ESBL Klebsiella, and he is currently covered with IV m eropenem, IV vancomycin was stopped. Patient probably will need IV antibiotics upon discharge we checked renal ultrasound today which was negative for obstructive uropathy given his significant infection Also patient INR is 3.5. Hemoglobin 8.5. 03/06/2023 Patient more confused and lethargic today, he does not answers my questions or follow commands, his mentation also reported to be worse by family doctor daughter today. His aneurysm was 3.5, repeat INR today is still pending, going to order CT of the brain to rule out hemorrhage. His been treated also with meropenem for his left leg cellulitis, with leg looks less red ,s till warm, mild swelling , no much tenderness also has been treated for UTI with Quezada catheter in place. Culture is growing ESBL Klebsiella. Also for bacteremia with possible contamination. Patient still not eaten much, glucose controlled after we lowered his Levemir 10 units. Also his hands well and therefore we going to switch his fluid #75 mL down to D5 normal saline at 50 mL/h with close monitoring Today I talked to the daughter Gabriella [phone] per her request, all her questions were answered and I discussed the case with her updating her about thi s problem and management plan and she verbalized understanding and acceptance 03/07/2023 Patient awake still slow to answer questions. He still looks somewhat confused and he got agitation at time at bedside and states that he has dementia more than 6 years which is slowly progressive and may be contributing to his slow recovery. He denies specific symptoms. No chest pain or dyspnea. He is afebrile and hemodynamically stable. Leukocytosis back to normal today 15.1 down to 9.8. Hemoglobin stable 9.6. INR 3.0 and patient is going to 1 mg of warfarin tonight. BNP is unremarkable. Patient remains on meropenem with the plan for outpatient IV antibiotic. His home dose of insulin 15 units lower to 10 units because patient was not eating much because of his infection and mental status. Glucose currently controlled 03/08/2023 Patient remains confused and agitated at times. It could be part of his worsening dementia as per at bedside for more than 5-6 years complicated by his infection and sepsis and metabolic encephalopathy. He is getting Seroquel and Haldol when necessary. He remains treated for UTI with ESBL Klebsiella with meropenem and lower extremity cellulitis and he is improving regarding this. Currently he is afebrile and leukocytosis back to normal at 9.9. Hemoglobin stable 8.4. INR 3.4 and 14 minutes and hold for now. His sodium come back elevated at 154 (result came back late) so started patient on D5W at 75 mm/h with close monitoring of solid Objective - Vital Signs Vital signs: Vital Signs Temp 98.0 F 03/08/23 07:55 Pulse 94 03/08/23 07:55 Resp 19 03/08/23 07:55 BP 179/64 03/08/23 07:55 Pulse Ox 99 03/08/23 07:55 FiO2 Intake & Output 03/07/23 03/08/23 03/08/23 18:59 06:59 18:59 Intake Total 240 Output Total 1000 800 Balance -1000 240 -800 Intake: Oral 240 Output: Urine 650 800 Stool 350 Other: Voiding Method Indwelling Catheter Indwelling Catheter Indwelling Catheter # Voids 1 - Exam -GENERAL: The patient is alert and oriented x2-3, not in any acute distress. Well developed, well nourished. HEENT: Pupils are round and equally reacting to light. EOMI. No scleral icterus. No conjunctival pallor. Normocephalic, atraumatic. No pharyngeal erythema. No thyromegaly. CARDIOVASCULAR: S1 and S2 present. No murmurs, rubs, or gallops. PULMONARY: Chest is clear to auscultation, no wheezing , no crackles. ABDOMEN: Soft, nontender, nondistended, normoactive bowel sounds. No palpable organomegaly. MUSCULOSKELETAL: No joint swelling or deformity. -EXTREMITIES: No cyanosis, clubbing, or pedal edema. Left leg cellulitis NEUROLOGICAL: Gross neurological examination did not reveal any focal deficits. SKIN: No rashes. no petechiae. - Labs CBC & Chem 7: 03/08/23 06:40 03/08/23 06:40 Labs: Abnormal Lab Results - Last 24 Hours (Table) 03/07/23 03/07/23 03/07/23 Range/Units 17:12 18:54 18:54 RBC 3.43 L (4.30-5.90) m/uL Hgb 9.6 L (13.0-17.5) gm/dL Hct 30.0 L (39.0-53.0) % MCH (27.0-32.0) pg MCHC (32.0-37.0) g/dL RDW (11.5-14.5) % Neutrophils # 8.1 H (1.3-7.7) k/uL PT (10.0-12.5) sec INR (<1.2) Sodium (135-145) mmol/L Potassium (3.5-5.5) mmol/L Chloride 112 H (98-107) mmol/L BUN 7 L (9-20) mg/dL BUN/Creatinine Ratio (12.00-20.00) Ratio Glucose 129 H (74-99) mg/dL POC Glucose (mg/dL) 143 H (70-110) mg/dL Calcium 7.6 L (8.4-10.2) mg/dL C-Reactive Protein (0.00-0.80) mg/dL 03/07/23 03/07/23 03/08/23 Range/Units 18:54 19:55 06:40 RBC (4.30-5.90) m/uL Hgb (13.0-17.5) gm/dL Hct (39.0-53.0) % MCH (27.0-32.0) pg MCHC (32.0-37.0) g/dL RDW (11.5-14.5) % Neutrophils # (1.3-7.7) k/uL PT 29.9 H 33.4 H (10.0-12.5) sec INR 3.0 H 3.4 H (<1.2) Sodium (135-145) mmol/L Potassium (3.5-5.5) mmol/L Chloride (98-107) mmol/L BUN (9-20) mg/dL BUN/Creatinine Ratio (12.00-20.00) Ratio Glucose (74-99) mg/dL POC Glucose (mg/dL) 146 H (70-110) mg/dL Calcium (8.4-10.2) mg/dL C-Reactive Protein (0.00-0.80) mg/dL 03/08/23 03/08/23 Range/Units 06:40 06:40 RBC 3.13 L (4.30-5.90) m/uL Hgb 8.4 L (13.0-17.5) gm/dL Hct 27.3 L (39.0-53.0) % MCH 26.8 L (27.0-32.0) pg MCHC 30.8 L (32.0-37.0) g/dL RDW 15.9 H (11.5-14.5) % Neutrophils # (1.3-7.7) k/uL PT (10.0-12.5) sec INR (<1.2) Sodium 154 H (135-145) mmol/L Potassium 3.4 L (3.5-5.5) mmol/L Chloride 120 H (98-107) mmol/L BUN 6.4 L (9-20) mg/dL BUN/Creatinine Ratio 9.14 L (12.00-20.00) Ratio Glucose 68 L (74-99) mg/dL POC Glucose (mg/dL) (70-110) mg/dL Calcium 7.5 L (8.4-10.2) mg/dL C-Reactive Protein 19.90 H (0.00-0.80) mg/dL Microbiology - Last 24 Hours (Table) 03/02/23 07:28 Blood Culture - Final Blood Assessment and Plan Assessment: Hypernatremia diabetic left heel ulcer stage 3 with surrounding cellulitis . Acute urinary tract infection. Urine culture: ESBL Klebsiella. Patient has indwelling Quezada catheter. UTI related to Quezada catheter Coagulopathy secondary to high INR Anemia, with worsening hemoglobin Paroxysmal atrial fibrillation on anticoagulation with Coumadin Acute kidney injury likely prerenal creatinine 1.68 and baseline 1.1 proved Generalized weakness and unable to ambulate without support. Hypoglycemia with uncontrolled diabetes type 2 insulin-dependent Coronary arteries with history of stent placement Hypertension Hyperlipidemia Dementia/cognitive impairment Stage II sacral decub ulcers. Plan: Start the patient on D5W with sodium monitoring Continue with meropenem Infectious disease consult on the heel caser INR and hemoglobin Continue with insulin 10 units in monitor glucose Labs and medication were reviewed.. Continue same treatment. Continue with symptomatic treatment. Resume home medication. Monitor labs and vitals. DVT and GI prophylaxis. Further recommendations as per clinical course of the patient DVT prophylaxis: on Coumadin GI Prophylaxis: Ppi PT/OT: Pending Prognosis is guarded
[2023-03-09 09:56] LABS: Glucose,Whole Blood 185 mg/dL (70-110)
[2023-03-09 12:23] LABS: Glucose,Whole Blood 154 mg/dL (70-110)
[2023-03-09 12:44] LABS: INR 3.2 (<1.2); Prothrombin Time 31.4 sec (10.0-12.5)
[2023-03-09 12:46] LABS: African American GFR (CKD) >90 (>60 ml/min/1.73 sqM); Anion Gap 4 mmol/L; Blood Urea Nitrogen 9 mg/dL (9-20); Calcium 7.2 mg/dL (8.4-10.2); Carbon Dioxide 24 mmol/L (22-30); Chloride 108 mmol/L (98-107); Glucose 141 mg/dL (74-99); Non-African American GFR(CKD) >90 (>60 ml/min/1.73 sqM); Sodium 136 mmol/L (137-145)
[2023-03-09] MEDS: DEXTROSE 5% IN WATER 1,000 ML IV SCH (13:01)
[2023-03-09 13:02] LABS: Potassium 3.5 mmol/L (3.5-5.1)
[2023-03-09 13:45] LABS: Basophils # (A) 0.1 k/uL (0-0.2); Basophils % (A) 1 %; Eosinophils # (A) 0.1 k/uL (0-0.7); Eosinophils % (A) 2 %; HCT 28.9 % (39.0-53.0); Hypochromasia Marked; Lymphocytes # (A) 1.4 k/uL (1.0-4.8); Lymphocytes % (A) 16 %; MCH 28.2 pg (25.0-35.0); MCHC 31.1 g/dL (31.0-37.0); MCV 90.7 fL (80.0-100.0); Mean Platelet Volume 8.6; Monocytes # (A) 0.5 k/uL (0-1.0); Monocytes % (A) 5 %; Neutrophils # (A) 6.5 k/uL (1.3-7.7); Neutrophils % (A) 75 %; Platelet Count 266 k/uL (150-450); RBC 3.18 m/uL (4.30-5.90); RDW 15.5 % (11.5-15.5); WBC 8.7 k/uL (3.8-10.6)
--- NOTE | 2023-03-09 15:34 | P.PN ---
Subjective Progress Note Date: 03/09/23 Principal diagnosis: Reason for follow-up is left lower extremity cellulitis UTI and bacteremia Patient is a 78-year-old male with a past medical history significant for diabetes mellitus hypertension hyperlipidemia CT patient was brought into the hospital from the local assisted concerning for elevated white count, patient did have a left hip ulceration noted to have a cellulitis to the left lower extremity also have a chronic indwelling Quezada catheter with a positive UA and blood cultures came back positive with gram-positive cocci. On today's evaluation that is 03/09/2023, the patient continues to be afebrile patient is currently breathing comfortably on room air not requiring any oxygen, the patient seem to be slightly more awake and alert today and in good mood and asked specifically denies having any chest pain shortness of breath or cough, the patient denies nausea vomiting no abdominal pain no diarrhea. White count is 8.7, creatinine 0.64 blood culture repeat has been negative Objective - Vital Signs Vital signs: Vital Signs Temp 98.0 F 03/09/23 07:13 Pulse 109 H 03/09/23 07:13 Resp 20 03/09/23 07:13 BP 169/78 03/09/23 07:13 Pulse Ox 97 03/09/23 07:13 FiO2 Intake & Output 03/08/23 03/09/23 03/09/23 18:59 06:59 18:59 Intake Total 240 Output Total 800 300 Balance -800 -60 Weight 95.254 kg Intake: Oral 240 Output: Urine 800 300 Other: Voiding Method Indwelling Catheter Indwelling Catheter Indwelling Catheter - Exam GENERAL DESCRIPTION: An elderly male lying in bed in no distress RESPIRATORY SYSTEM: Unlabored breathing , decreased breath sounds at bases HEART: S1 S2 regular rate and rhythm , ABDOMEN: Soft , no tenderness EXTREMITIES: Right posterior heel with a stage II pressure ulcer minimal slough tissue no surrounding redness - Labs CBC & Chem 7: 03/09/23 12:23 03/09/23 12:10 Labs: Abnormal Lab Results - Last 24 Hours (Table) 03/08/23 03/09/23 03/09/23 Range/Units 16:52 09:54 12:15 POC Glucose (mg/dL) 140 H 185 H 154 H (70-110) mg/dL Assessment and Plan (1) Left leg cellulitis Current Visit: Yes Status: Acute Code(s): L03.116 - CELLULITIS OF LEFT LOWER LIMB SNOMED Code(s): 36110874269671271 (2) UTI (urinary tract infection) Current Visit: Yes Status: Acute Code(s): N39.0 - URINARY TRACT INFECTION, SITE NOT SPECIFIED SNOMED Code(s): 73293152 (3) Positive blood culture Current Visit: Yes Status: Acute Code(s): R78.81 - BACTEREMIA SNOMED Code(s): 553547488 (4) Leukocytosis Current Visit: Yes Status: Acute Code(s): D72.829 - ELEVATED WHITE BLOOD CELL COUNT, UNSPECIFIED SNOMED Code(s): 957300245 (5) Ulcer of left foot Current Visit: No Status: Acute Code(s): L97.529 - NON-PRESSURE CHRONIC ULCER OTH PRT LEFT FOOT W UNSP SEVERITY SNOMED Code(s): 211521953 Plan: 1patient presented to the hospital with elevated white count with initial concern for possible left heel ulcer and cellulitis however the patient also have a positive UA and there was concern for catheter associated UTI 2positive blood culture 2 out of 2 staph epi question of contamination, repeat blood culture has been negative, vancomycin has been discontinued 3-patient local wound care to the right posterior heel wound with the Santyl followed by moist dressing keep the area of the pressure 4-positive urine culture ESBL Klebsiella, ultrasound of the kidney bladder did not show any abscess or obstructive uropathy 5patient continued to show clinical improvement and will continue with the meropenem, plan is to finish therapy with IV Invanz duration of antibiotic about 7 to 10 days total, at the bedside question concern answered Dictation was produced using [employer] dictation software. please excuse any grammatical, word or spelling errors. Time with Patient: Less than 30
[2023-03-09 15:57] LABS: Glucose,Whole Blood 161 mg/dL (70-110)
[2023-03-09] MEDS: WARFARIN 0.5 MG TAB PO ONE (18:20)
[2023-03-09 20:59] LABS: Glucose,Whole Blood 129 mg/dL (70-110)
[2023-03-10 02:34] LABS: Glucose,Whole Blood 114 mg/dL (70-110)
[2023-03-10 06:03] LABS: Glucose,Whole Blood 87 mg/dL (70-110)
[2023-03-10 07:15] LABS: INR 3.5 (<1.2); Prothrombin Time 34.7 sec (10.0-12.5)
[2023-03-10 10:07] LABS: BUN/Creat Ratio 9.57 Ratio (12.00-20.00); Blood Urea Nitrogen 6.7 mg/dL (9.0-27.0); Calcium 7.3 mg/dL (8.7-10.3); Carbon Dioxide 26.4 mmol/L (21.6-31.8); Chloride 107 mmol/L (96-109); Glucose 74 mg/dL (70-110); Potassium 3.4 mmol/L (3.5-5.5); Sodium 141 mmol/L (135-145)
[2023-03-10 10:14] LABS: Acanthocytes 2+; Basophils # (A) 0.01 X 10*3/uL (0.00-0.10); Basophils % (A) 0.1 %; Eosinophils # (A) 0.21 X 10*3/uL (0.04-0.35); Eosinophils % (A) 2.2 %; HCT 26.5 % (39.6-50.0); HGB 8.2 g/dL (13.0-17.0); Lymphocytes # (A) 1.31 X 10*3/uL (0.90-5.00); Lymphocytes % (A) 13.8 %; MCHC 30.9 g/dL (32.0-37.0); MCV 87.2 FL (80.0-97.0); Mean Platelet Volume 10.2 FL (9.5-12.2); Monocytes # (A) 0.59 X 10*3/uL (0.20-1.00); Monocytes % (A) 6.2 %; NRBC Per 100 WBC 0 X 10*3/uL (0.00-0.01); Neutrophils # (A) 7.31 X 10*3/uL (1.80-7.70); Neutrophils % (A) 77.3 %; Platelet Count 273 X 10*3/uL (140-440); RBC 3.04 X 10*6/uL (4.40-5.60); RDW 15.9 % (11.5-14.5); WBC 9.47 X 10*3/uL (4.50-10.00)
[2023-03-10 11:27] LABS: Glucose,Whole Blood 66 mg/dL (70-110)
--- NOTE | 2023-03-10 12:10 | P.PN ---
Subjective Progress Note Date: 03/09/23 78-year-old male with a known history of coronary artery disease status post stent placement, atrial fibrillation on anticoagulation with Coumadin, hypertension, diabetes type 2 insulin-dependent, hyperlipidemia, COPD, gout and dementia who is currently at assisted was sent to hospital due to worsening leukocytosis. Patient discharged from hospital recently on 02/09/2023 after treatment for left heel diabetic foot ulcer and surrounding cellulitis. Patient does have indwelling Quezada catheter. Cognitive impairment and could not provide much history. Patient's daughter is at bedside. Otherwise patient does not have any fever or chills. Denies any abdominal pain. No nausea vomiting or diarrhea. Chest x-ray showed no acute cardiopulmonary process/disease. Ankle x-ray showed 7 mm ossific density at the distal Achilles tendon on with mild thickening. Consider chronic insertional tendinopathy. Sequela of old injury to the medial malleolus. No vaughn lytic destruction identified to clearly indicate osteomyelitis. Laboratory data showed WBC 22.0 hemoglobin 13.0 and platelets 284 Sodium 136 potassium 3.9 chloride 97 bicarb is 31 BUN 60 and creatinine 1.68 and blood sugar 197. Liver enzymes are not elevated. Albumin 3.4 Urinalysis showed large leukocyte esterase nitrite positive with elevated WBCs 13 and occasional bacteria. Influenza A, B, RSV and COVID-19 PCR not detected. Objective - Vital Signs Vital signs: Vital Signs Temp 99.8 F H 03/10/23 07:03 Pulse 113 H 03/10/23 07:03 Resp 19 03/10/23 07:03 BP 122/73 03/10/23 07:03 Pulse Ox 94 L 03/10/23 07:03 FiO2 Intake & Output 03/09/23 03/10/23 03/10/23 18:59 06:59 18:59 Output Total 1150 Balance -1150 Weight 95.254 kg Output: Urine 800 Stool 350 Other: Voiding Method Indwelling Catheter Indwelling Catheter - Exam -GENERAL: The patient is alert and oriented x2-3, not in any acute distress. Well developed, well nourished. HEENT: Pupils are round and equally reacting to light. EOMI. No scleral icterus. No conjunctival pallor. Normocephalic, atraumatic. No pharyngeal erythema. No thyromegaly. CARDIOVASCULAR: S1 and S2 present. No murmurs, rubs, or gallops. PULMONARY: Chest is clear to auscultation, no wheezing , no crackles. ABDOMEN: Soft, nontender, nondistended, normoactive bowel sounds. No palpable organomegaly. MUSCULOSKELETAL: No joint swelling or deformity. -EXTREMITIES: No cyanosis, clubbing, or pedal edema. Left leg cellulitis NEUROLOGICAL: Gross neurological examination did not reveal any focal deficits. SKIN: No rashes. no petechiae. - Labs CBC & Chem 7: 03/10/23 06:24 03/10/23 06:24 Labs: Abnormal Lab Results - Last 24 Hours (Table) 03/09/23 03/09/23 03/09/23 Range/Units 12:10 12:15 12:23 RBC 3.18 L (4.30-5.90) m/uL Hgb 9.0 L (13.0-17.5) gm/dL Hct 28.9 L (39.0-53.0) % MCHC (32.0-37.0) g/dL RDW (11.5-14.5) % Acanthocytes (Spur) PT (10.0-12.5) sec INR (<1.2) Sodium 136 L (137-145) mmol/L Potassium (3.5-5.5) mmol/L Chloride 108 H (98-107) mmol/L BUN (9.0-27.0) mg/dL Creatinine 0.64 L (0.66-1.25) mg/dL BUN/Creatinine Ratio (12.00-20.00) Ratio Glucose 141 H (74-99) mg/dL POC Glucose (mg/dL) 154 H (70-110) mg/dL Calcium 7.2 L (8.4-10.2) mg/dL 03/09/23 03/09/23 03/09/23 Range/Units 12:23 15:55 20:58 RBC (4.30-5.90) m/uL Hgb (13.0-17.5) gm/dL Hct (39.0-53.0) % MCHC (32.0-37.0) g/dL RDW (11.5-14.5) % Acanthocytes (Spur) PT 31.4 H (10.0-12.5) sec INR 3.2 H (<1.2) Sodium (137-145) mmol/L Potassium (3.5-5.5) mmol/L Chloride (98-107) mmol/L BUN (9.0-27.0) mg/dL Creatinine (0.66-1.25) mg/dL BUN/Creatinine Ratio (12.00-20.00) Ratio Glucose (74-99) mg/dL POC Glucose (mg/dL) 161 H 129 H (70-110) mg/dL Calcium (8.4-10.2) mg/dL 03/10/23 03/10/23 03/10/23 Range/Units 02:33 06:24 06:24 RBC 3.04 L (4.30-5.90) m/uL Hgb 8.2 L (13.0-17.5) gm/dL Hct 26.5 L (39.0-53.0) % MCHC 30.9 L (32.0-37.0) g/dL RDW 15.9 H (11.5-14.5) % Acanthocytes (Spur) 2+ A PT 34.7 H (10.0-12.5) sec INR 3.5 H (<1.2) Sodium (137-145) mmol/L Potassium (3.5-5.5) mmol/L Chloride (98-107) mmol/L BUN (9.0-27.0) mg/dL Creatinine (0.66-1.25) mg/dL BUN/Creatinine Ratio (12.00-20.00) Ratio Glucose (74-99) mg/dL POC Glucose (mg/dL) 114 H (70-110) mg/dL Calcium (8.4-10.2) mg/dL 03/10/23 03/10/23 Range/Units 06:24 11:25 RBC (4.30-5.90) m/uL Hgb (13.0-17.5) gm/dL Hct (39.0-53.0) % MCHC (32.0-37.0) g/dL RDW (11.5-14.5) % Acanthocytes (Spur) PT (10.0-12.5) sec INR (<1.2) Sodium (137-145) mmol/L Potassium 3.4 L (3.5-5.5) mmol/L Chloride (98-107) mmol/L BUN 6.7 L (9.0-27.0) mg/dL Creatinine (0.66-1.25) mg/dL BUN/Creatinine Ratio 9.57 L (12.00-20.00) Ratio Glucose (74-99) mg/dL POC Glucose (mg/dL) 66 L (70-110) mg/dL Calcium 7.3 L (8.4-10.2) mg/dL Assessment and Plan Assessment: Hypernatremia diabetic left heel ulcer stage 3 with surrounding cellulitis . Acute urinary tract infection. Urine culture: ESBL Klebsiella. Patient has indwelling Quezada catheter. UTI related to Quezada catheter Coagulopathy secondary to high INR Anemia, with worsening hemoglobin Paroxysmal atrial fibrillation on anticoagulation with Coumadin Acute kidney injury likely prerenal creatinine 1.68 and baseline 1.1 proved Generalized weakness and unable to ambulate without support. Hypoglycemia with uncontrolled diabetes type 2 insulin-dependent Coronary arteries with history of stent placement Hypertension Hyperlipidemia Dementia/cognitive impairment Stage II sacral decub ulcers. Plan: Start the patient on D5W with sodium monitoring Continue with meropenem Infectious disease consult on the ed case manager INR and hemoglobin Continue with insulin 10 units in monitor glucose Labs and medication were reviewed.. Continue same treatment. Continue with symptomatic treatment. Resume home medication. Monitor labs and vitals. DVT and GI prophylaxis. Further recommendations as per clinical course of the patient DVT prophylaxis: on Coumadin GI Prophylaxis: Ppi PT/OT: Pending Prognosis is guarded
[2023-03-10 16:44] LABS: Glucose,Whole Blood 78 mg/dL (70-110)
[2023-03-10] MEDS: WARFARIN 0.5 MG TAB PO ONE (18:49)
--- NOTE | 2023-03-10 19:22 | P.PN ---
Subjective Progress Note Date: 03/10/23 78-year-old male with a known history of coronary artery disease status post stent placement, atrial fibrillation on anticoagulation with Coumadin, hypertension, diabetes type 2 insulin-dependent, hyperlipidemia, COPD, gout and dementia [facility] was sent to hospital due to worsening leukocytosis. Patient discharged from hospital recently on 02/09/2023 after treatment for left heel diabetic foot ulcer and surrounding cellulitis. Patient does have indwelling Quezada catheter. Cognitive impairment and could not provide much history. Patient's daughter is at bedside. Otherwise patient does not have any fever or chills. Denies any abdominal pain. No nausea vomiting or diarrhea. Chest x-ray showed no acute cardiopulmonary process/disease. Ankle x-ray showed 7 mm ossific density at the distal Achilles tendon on with mild thickening. Consider chronic insertional tendinopathy. Sequela of old injury to the medial malleolus. No vaughn lytic destruction identified to clearly indicate osteomyelitis. Laboratory data showed WBC 22.0 hemoglobin 13.0 and platelets 284 Sodium 136 potassium 3.9 chloride 97 bicarb is 31 BUN 60 and creatinine 1.68 and blood sugar 197. Liver enzymes are not elevated. Albumin 3.4 Urinalysis showed large leukocyte esterase nitrite positive with elevated WBCs 13 and occasional bacteria. Influenza A, B, RSV and COVID-19 PCR not detected. 03/10/2023, the patient continues to be afebrile patient is currently breathing comfortably on room air not requiring any oxygen, the patient seem to be slightly more awake and alert today and in good mood and asked specifically denies having any chest pain shortness of breath or cough, the patient denies nausea vomiting no abdominal pain no diarrhea. White count is 8.7, creatinine 0.64 blood culture repeat has been negative patient presented to the hospital with elevated white count with initial concern for possible left heel ulcer and cellulitis however the patient also have a positive UA and there was concern for catheter associated UTI positive blood culture 2 out of 2 staph epi question of contamination, repeat blood culture has been negative, vancomycin has been discontinued -patient local wound care to the right posterior heel wound with the Santyl followed by moist dressing keep the area of the pressure -positive urine culture ESBL Klebsiella, ultrasound of the kidney bladder did not show any abscess or obstructive uropathy patient continued to show clinical improvement and will continue with the meropenem, plan is to finish therapy with IV Invanz duration of antibiotic about 7 to 10 days total, at the bedside question concern answered Objective - Vital Signs Vital signs: Vital Signs Temp 99.8 F H 03/10/23 07:03 Pulse 113 H 03/10/23 07:03 Resp 19 03/10/23 07:03 BP 122/73 03/10/23 07:03 Pulse Ox 94 L 03/10/23 07:03 FiO2 Intake & Output 03/09/23 03/10/23 03/10/23 18:59 06:59 18:59 Output Total 1150 Balance -1150 Weight 95.254 kg Output: Urine 800 Stool 350 Other: Voiding Method Indwelling Catheter Indwelling Catheter - Exam -GENERAL: The patient is alert and oriented x2-3, not in any acute distress. Well developed, well nourished. HEENT: Pupils are round and equally reacting to light. EOMI. No scleral icterus. No conjunctival pallor. Normocephalic, atraumatic. No pharyngeal erythema. No thyromegaly. CARDIOVASCULAR: S1 and S2 present. No murmurs, rubs, or gallops. PULMONARY: Chest is clear to auscultation, no wheezing , no crackles. ABDOMEN: Soft, nontender, nondistended, normoactive bowel sounds. No palpable organomegaly. MUSCULOSKELETAL: No joint swelling or deformity. -EXTREMITIES: No cyanosis, clubbing, or pedal edema. Left leg cellulitis NEUROLOGICAL: Gross neurological examination did not reveal any focal deficits. SKIN: No rashes. no petechiae. - Labs CBC & Chem 7: 03/10/23 06:24 03/10/23 06:24 Labs: Abnormal Lab Results - Last 24 Hours (Table) 03/09/23 03/09/23 03/09/23 Range/Units 12:10 12:15 12:23 RBC 3.18 L (4.30-5.90) m/uL Hgb 9.0 L (13.0-17.5) gm/dL Hct 28.9 L (39.0-53.0) % MCHC (32.0-37.0) g/dL RDW (11.5-14.5) % Acanthocytes (Spur) PT (10.0-12.5) sec INR (<1.2) Sodium 136 L (137-145) mmol/L Potassium (3.5-5.5) mmol/L Chloride 108 H (98-107) mmol/L BUN (9.0-27.0) mg/dL Creatinine 0.64 L (0.66-1.25) mg/dL BUN/Creatinine Ratio (12.00-20.00) Ratio Glucose 141 H (74-99) mg/dL POC Glucose (mg/dL) 154 H (70-110) mg/dL Calcium 7.2 L (8.4-10.2) mg/dL 03/09/23 03/09/23 03/09/23 Range/Units 12:23 15:55 20:58 RBC (4.30-5.90) m/uL Hgb (13.0-17.5) gm/dL Hct (39.0-53.0) % MCHC (32.0-37.0) g/dL RDW (11.5-14.5) % Acanthocytes (Spur) PT 31.4 H (10.0-12.5) sec INR 3.2 H (<1.2) Sodium (137-145) mmol/L Potassium (3.5-5.5) mmol/L Chloride (98-107) mmol/L BUN (9.0-27.0) mg/dL Creatinine (0.66-1.25) mg/dL BUN/Creatinine Ratio (12.00-20.00) Ratio Glucose (74-99) mg/dL POC Glucose (mg/dL) 161 H 129 H (70-110) mg/dL Calcium (8.4-10.2) mg/dL 03/10/23 03/10/23 03/10/23 Range/Units 02:33 06:24 06:24 RBC 3.04 L (4.30-5.90) m/uL Hgb 8.2 L (13.0-17.5) gm/dL Hct 26.5 L (39.0-53.0) % MCHC 30.9 L (32.0-37.0) g/dL RDW 15.9 H (11.5-14.5) % Acanthocytes (Spur) 2+ A PT 34.7 H (10.0-12.5) sec INR 3.5 H (<1.2) Sodium (137-145) mmol/L Potassium (3.5-5.5) mmol/L Chloride (98-107) mmol/L BUN (9.0-27.0) mg/dL Creatinine (0.66-1.25) mg/dL BUN/Creatinine Ratio (12.00-20.00) Ratio Glucose (74-99) mg/dL POC Glucose (mg/dL) 114 H (70-110) mg/dL Calcium (8.4-10.2) mg/dL 03/10/23 03/10/23 Range/Units 06:24 11:25 RBC (4.30-5.90) m/uL Hgb (13.0-17.5) gm/dL Hct (39.0-53.0) % MCHC (32.0-37.0) g/dL RDW (11.5-14.5) % Acanthocytes (Spur) PT (10.0-12.5) sec INR (<1.2) Sodium (137-145) mmol/L Potassium 3.4 L (3.5-5.5) mmol/L Chloride (98-107) mmol/L BUN 6.7 L (9.0-27.0) mg/dL Creatinine (0.66-1.25) mg/dL BUN/Creatinine Ratio 9.57 L (12.00-20.00) Ratio Glucose (74-99) mg/dL POC Glucose (mg/dL) 66 L (70-110) mg/dL Calcium 7.3 L (8.4-10.2) mg/dL Assessment and Plan Assessment: Hypernatremia diabetic left heel ulcer stage 3 with surrounding cellulitis . Acute urinary tract infection. Urine culture: ESBL Klebsiella. Patient has i ndwelling Quezada catheter. UTI related to Quezada catheter Coagulopathy secondary to high INR Anemia, with worsening hemoglobin Paroxysmal atrial fibrillation on anticoagulation with Coumadin Acute kidney injury likely prerenal creatinine 1.68 and baseline 1.1 proved Generalized weakness and unable to ambulate without support. Hypoglycemia with uncontrolled diabetes type 2 insulin-dependent Coronary arteries with history of stent placement Hypertension Hyperlipidemia Dementia/cognitive impairment Stage II sacral decub ulcers. Plan: Start the patient on D5W with sodium monitoring Continue with meropenem Infectious disease consult on the vocational case manager INR and hemoglobin Continue with insulin 10 units in monitor glucose Labs and medication were reviewed.. Continue same treatment. Continue with symptomatic treatment. Resume home medication. Monitor labs and vitals. DVT and GI prophylaxis. Further recommendations as per clinical course of the patient DVT prophylaxis: on Coumadin GI Prophylaxis: Ppi PT/OT: Pending Prognosis is guarded
--- NOTE | 2023-03-10 20:04 | XR ---
EXAMINATION TYPE: XR chest 1V DATE OF EXAM: 03/10/2023 7:29 PM CLINICAL INDICATION:Male, 78 years old with history of sob; [facility] COMPARISON: 02/28/2023 TECHNIQUE: XR chest 1V Portable AP radiograph of the chest.. FINDINGS: Lines/Tubes/Devices: No indwelling lines are seen. Heart/mediastinum: Heart appears mildly to moderately enlarged. Mildly tortuous aorta with atheroscl erotic calcification. Pulmonary vascularity: Not increased, Lungs/Pleura: There is no evidence of pleural effusion, focal consolidation, or pneumothorax. Minimal left basilar subsegmental atelectasis or scarring. Musculoskeletal: No acute osseous abnormality demonstrated in the limits of the exam. Degenerative c hanges of the spine and shoulders. Other findings: None. IMPRESSION: No acute cardiopulmonary abnormality.
[2023-03-10 20:30] LABS: Glucose,Whole Blood 131 mg/dL (70-110)
--- NOTE | 2023-03-10 23:41 | P.PN ---
Subjective Progress Note Date: 03/10/23 Principal diagnosis: Reason for follow-up is left lower extremity cellulitis UTI and bacteremia Patient is a 78-year-old male with a past medical history significant for diabetes mellitus hypertension hyperlipidemia [place] patient was brought into the hospital from the local assisted concerning for elevated white count, patient did have a left hip ulceration noted to have a cellulitis to the left lower extremity also have a chronic indwelling Quezada catheter with a positive UA and blood cultures came back positive with gram-positive cocci. On today's evaluation that is 03/10/2023, the patient denies having any fever or any chills, patient is breathing comfortably on room air, the patient denies having any chest pain shortness of breath , Pt did have occasional cough patient denies having any nausea vomiting diarrhea and abdominal pain. Patient did have white count 9.47, creatinine 0.7 Objective - Vital Signs Vital signs: Vital Signs Temp 99.8 F H 03/10/23 07:03 Pulse 113 H 03/10/23 07:03 Resp 19 03/10/23 07:03 BP 122/73 03/10/23 07:03 Pulse Ox 94 L 03/10/23 07:03 FiO2 Intake & Output 03/09/23 03/10/23 03/10/23 18:59 06:59 18:59 Output Total 1150 Balance -1150 Weight 95.254 kg Output: Urine 800 Stool 350 Other: Voiding Method Indwelling Catheter Indwelling Catheter - Exam GENERAL DESCRIPTION: An elderly male lying in bed in no distress RESPIRATORY SYSTEM: Unlabored breathing , decreased breath sounds at bases HEART: S1 S2 regular rate and rhythm , ABDOMEN: Soft , no tenderness EXTREMITIES: Right posterior heel with a stage II pressure ulcer minimal slough tissue no surrounding redness - Labs CBC & Chem 7: 03/10/23 06:24 03/10/23 06:24 Labs: Abnormal Lab Results - Last 24 Hours (Table) 03/09/23 03/09/23 03/09/23 Range/Units 12:10 12:15 12:23 RBC 3.18 L (4.30-5.90) m/uL Hgb 9.0 L (13.0-17.5) gm/dL Hct 28.9 L (39.0-53.0) % MCHC (32.0-37.0) g/dL RDW (11.5-14.5) % Acanthocytes (Spur) PT (10.0-12.5) sec INR (<1.2) Sodium 136 L (137-145) mmol/L Potassium (3.5-5.5) mmol/L Chloride 108 H (98-107) mmol/L BUN (9.0-27.0) mg/dL Creatinine 0.64 L (0.66-1.25) mg/dL BUN/Creatinine Ratio (12.00-20.00) Ratio Glucose 141 H (74-99) mg/dL POC Glucose (mg/dL) 154 H (70-110) mg/dL Calcium 7.2 L (8.4-10.2) mg/dL 03/09/23 03/09/23 03/09/23 Range/Units 12:23 15:55 20:58 RBC (4.30-5.90) m/uL Hgb (13.0-17.5) gm/dL Hct (39.0-53.0) % MCHC (32.0-37.0) g/dL RDW (11.5-14.5) % Acanthocytes (Spur) PT 31.4 H (10.0-12.5) sec INR 3.2 H (<1.2) Sodium (137-145) mmol/L Potassium (3.5-5.5) mmol/L Chloride (98-107) mmol/L BUN (9.0-27.0) mg/dL Creatinine (0.66-1.25) mg/dL BUN/Creatinine Ratio (12.00-20.00) Ratio Glucose (74-99) mg/dL POC Glucose (mg/dL) 161 H 129 H (70-110) mg/dL Calcium (8.4-10.2) mg/dL 03/10/23 03/10/23 03/10/23 Range/Units 02:33 06:24 06:24 RBC 3.04 L (4.30-5.90) m/uL Hgb 8.2 L (13.0-17.5) gm/dL Hct 26.5 L (39.0-53.0) % MCHC 30.9 L (32.0-37.0) g/dL RDW 15.9 H (11.5-14.5) % Acanthocytes (Spur) 2+ A PT 34.7 H (10.0-12.5) sec INR 3.5 H (<1.2) Sodium (137-145) mmol/L Potassium (3.5-5.5) mmol/L Chloride (98-107) mmol/L BUN (9.0-27.0) mg/dL Creatinine (0.66-1.25) mg/dL BUN/Creatinine Ratio (12.00-20.00) Ratio Glucose (74-99) mg/dL POC Glucose (mg/dL) 114 H (70-110) mg/dL Calcium (8.4-10.2) mg/dL 03/10/23 Range/Units 06:24 RBC (4.30-5.90) m/uL Hgb (13.0-17.5) gm/dL Hct (39.0-53.0) % MCHC (32.0-37.0) g/dL RDW (11.5-14.5) % Acanthocytes (Spur) PT (10.0-12.5) sec INR (<1.2) Sodium (137-145) mmol/L Potassium 3.4 L (3.5-5.5) mmol/L Chloride (98-107) mmol/L BUN 6.7 L (9.0-27.0) mg/dL Creatinine (0.66-1.25) mg/dL BUN/Creatinine Ratio 9.57 L (12.00-20.00) Ratio Glucose (74-99) mg/dL POC Glucose (mg/dL) (70-110) mg/dL Calcium 7.3 L (8.4-10.2) mg/dL Assessment and Plan (1) Left leg cellulitis Current Visit: Yes Status: Acute Code(s): L03.116 - CELLULITIS OF LEFT LOWER LIMB SNOMED Code(s): 84709954792049630 (2) UTI (urinary tract infection) Current Visit: Yes Status: Acute Code(s): N39.0 - URINARY TRACT INFECTION, SITE NOT SPECIFIED SNOMED Code(s): 89214448 (3) Positive blood culture Current Visit: Yes Status: Acute Code(s): R78.81 - BACTEREMIA SNOMED Code(s): 972769083 (4) Leukocytosis Current Visit: Yes Status: Acute Code(s): D72.829 - ELEVATED WHITE BLOOD CELL COUNT, UNSPECIFIED SNOMED Code(s): 530128822 (5) Ulcer of left foot Current Visit: No Status: Acute Code(s): L97.529 - NON-PRESSURE CHRONIC ULCER OTH PRT LEFT FOOT W UNSP SEVERITY SNOMED Code(s): 634829025 Plan: 1patient presented to the hospital with elevated white count with initial concern for possible left heel ulcer and cellulitis however the patient also have a positive UA and there was concern for catheter associated UTI 2positive blood culture 2 out of 2 staph epi question of contamination, repeat blood culture has been negative, vancomycin has been discontinued 3-patient local wound care to the right posterior heel wound with the Santyl followed by moist dressing keep the area of the pressure 4-positive urine culture ESBL Klebsiella, ultrasound of the kidney bladder did not show any abscess or obstructive uropathy 5patient did have some mental status changes being monitored closely by admitting team, patient will continue with the meropenem, and monitor clinical course closely Dictation was produced using [employer] dictation software. please excuse any grammatical, word or spelling errors.
[2023-03-11 07:02] LABS: Glucose,Whole Blood 139 mg/dL (70-110)
[2023-03-11 08:05] LABS: Basophils % (A) 0 %; Eosinophils # (A) 0.1 k/uL (0-0.7); Eosinophils % (A) 1 %; HCT 27.6 % (39.0-53.0); HGB 8.8 gm/dL (13.0-17.5); Hypochromasia Slight; Lymphocytes # (A) 1.1 k/uL (1.0-4.8); Lymphocytes % (A) 12 %; MCH 27.5 pg (25.0-35.0); MCHC 31.7 g/dL (31.0-37.0); MCV 86.6 fL (80.0-100.0); Mean Platelet Volume 8.2; Monocytes # (A) 0.6 k/uL (0-1.0); Monocytes % (A) 6 %; Neutrophils # (A) 7.1 k/uL (1.3-7.7); Neutrophils % (A) 79 %; Platelet Count 360 k/uL (150-450); RBC 3.19 m/uL (4.30-5.90); RDW 15.5 % (11.5-15.5)
[2023-03-11 08:17] LABS: INR 3.3 (<1.2); Prothrombin Time 32.2 sec (10.0-12.5)
[2023-03-11 08:36] LABS: African American GFR (CKD) >90 (>60 ml/min/1.73 sqM); Anion Gap 6 mmol/L; Blood Urea Nitrogen 8 mg/dL (9-20); Calcium 7.5 mg/dL (8.4-10.2); Carbon Dioxide 23 mmol/L (22-30); Chloride 106 mmol/L (98-107); Glucose 134 mg/dL (74-99); Non-African American GFR(CKD) >90 (>60 ml/min/1.73 sqM); Potassium 3.4 mmol/L (3.5-5.1); Sodium 135 mmol/L (137-145)
[2023-03-11 11:27] LABS: Glucose,Whole Blood 183 mg/dL (70-110)
[2023-03-11] MEDS: POTASSIUM CHLORIDE ER 20 MEQ TAB.ER PO STA (11:44)
[2023-03-11] MEDS: NYSTATIN 100,000 UNIT/GM POWD 15 GM TOPICAL SCH (11:55)
[2023-03-11] MEDS ORDERED: OLANZapine 10 MG VIAL IM PRN (12:46)
[2023-03-11] MEDS ORDERED: QUEtiapine 25 MG TAB PO PRN (12:46)
[2023-03-11] MEDS: DIVALPROEX ER 250 MG TAB.ER.24H PO SCH (14:35)
[2023-03-11] MEDS: ERTAPENEM 1 GM in SODIUM CHLORIDE 0.9% 50 ML IVPB SCH (14:35)
--- NOTE | 2023-03-11 15:04 | P.CN ---
Psychiatric Consult - . Consult date: 03/11/23 Consult:: 03/11/23 11:54 IDENTIFYING DATA: This patient is a 78-year-old male, currently living at [facility], transferred to the hospital for elevation in WBCs and ANC and also weakness and cellulitis. REASON FOR REFERRAL: Psychiatry was consulted for altered mental status HISTORY OF PRESENT ILLNESS: The patient presented to the hospital initially on 02/28 from the alf for increase in white blood cell count and ANC. Patient has a cough apparently and also cellulitis that he is being treated for. Patient has a history of dementia. Nurse taking care of patient states that patient was fairly aggressive yesterday and fairly irritable this morning has been refusing some medications at times, claims that sleep has been poor. Patient's family was in the room and agreeable to speak to adjusto writer operator outside the room and relayed their concerns. They state that patient does have a history of dementia however has been more irritable lately for the past several weeks, he has been at [facility] for the past 2 weeks, more confused. Patient was seen today laying in bed had his head turned to the side. He responded to his name however had a fairly irritable tone with adjusto writer operator. He denied any request for any help. He was able to correctly identify his name and also the correct location, he believes that the date was 01/24. Claims that he is feeling fairly tired at this time. He was a poor historian. Claims that he had a "relapse" however was unable to give further details of what this meant. Denies any problems with mood or anxiety. States that his sleep and appetite have been poor. At this time patient denies any suicidal or homical ideations, intent or plan. Patient denies any auditory, visual hallucinations and denies any paranoia or delusions. Patients admits to using no recreational drugs or cigarettes Due to patient's mental status, he was not able to give much psychiatric history or social history. PAST PSYCHIATRIC HISTORY: Patient has a a history of dementia. Patient is currently on BuSpar, Aricept, Seroquel and receiving Haldol as needed. Patient denies any previous psychiatric hospitalizations. Patient denies any psychiatric outpatient follow-up. Past Medical History: COPD, Diabetes Mellitus, Hyperlipidemia, Hypertension, Myocardial Infarction ([place]) Additional Past Medical History / Comment(s): Recent sore R great toe-healed, gout. Last Myocardial Infarction Date:: 1991 History of Any Multi-Drug Resistant Organisms: None Reported Past Surgical History: Heart Catheterization, Heart Catheterization With Stent Additional Past Surgical History / Comment(s): 01/18/16 cardiac stents to RCA x2. Other surgical hx: balloon angiioplasty 1991, nathan cataracts Past Anesthesia/Blood Transfusion Reactions: No Reported Reaction Date of Last Stent Placement:: 01/19/16 Past Psychological History: No Psychological Hx Reported Smoking Status: Never smoker Past Alcohol Use History: None Reported Past Drug Use History: None Reported ALLERGIES: as per EMR. CHEMICAL DEPENDENCY HISTORY: as per HPI. FAMILY PSYCHIATRIC/SUBSTANCE USE HISTORY: Unable to obtain SOCIAL HISTORY: Patient apparently has been coming from a alf [facility], he is he has a son. Unable to give further social history. MENTAL STATUS EXAM: General Appearance: Patient appears to be uninterested, has his head turned stated age is alert, irritable, uncooperative. Patient appears to have fair hygiene and grooming wearing hospital gown with poor eye contact. Behavior: Patient is calmly lying in bed without any agitated behavior. Uncooperative Speech: Patient's speech is fluent and nonpressured. Orange Mood/Affect: Patient reports their mood is "fine", affect is incongruent Suicidality/Homicidality: Patient denies having any suicidal or homicidal ideation intent or plan. Perceptions: Patient denies any visual hallucinations and denies any auditory hallucinations Though content/process: Orange, poverty of content. Memory and concentration: AOX3, grossly intact for the purposes of this session. Can spell "WORLD" backwards Judgment and insight: Poor/limited IMPRESSIONS: Delirium likely secondary to multiple etiologies including medications and infection Dementia PLAN: -At this time patient DOES NOT meet criteria for inpatient psychiatric admission. -Patient DOES NOT have decision making capacity at this time and is unable to reason through and communicate/appreciate the risks, benefits and alternatives to treatment. -Delirium precautions recommended with patient including - avoiding use of narcotics and JIG FITTER sedatives, limit anticholinergic medications when possible, frequent re-orientation, minimize use of restraints, open window shades during the day and close them at night -Would recommend the following medication changes/additions: Added Depakote 250 mg daily for mood stabilization, continue with Seroquel scheduled 25 mg nightly for mood stabilization/sleep, added Seroquel 25 mg twice daily as needed for agitation/insomnia. Discontinue Haldol and replace with Zyprexa as needed IM for severe agitation. Can continue with Aricept and BuSpar as prescribed. -Communicated plan to patient's nurse -Psychiatry will sign off at this time unless further issues arise, then please contact psychiatry unit. -Please contact with any questions. 03/11/23 14:56
--- NOTE | 2023-03-11 16:11 | P.PN ---
Subjective Progress Note Date: 03/11/23 Principal diagnosis: Reason for follow-up is left lower extremity cellulitis UTI and bacteremia Patient is a 78-year-old male with a past medical history significant for diabetes mellitus hypertension hyperlipidemia [place] patient was brought into the hospital from the local senior living concerning for elevated white count, patient did have a left hip ulceration noted to have a cellulitis to the left lower extremity also have a chronic indwelling Quezada catheter with a positive UA and blood cultures came back positive with gram-positive cocci. On today's evaluation that is 03/11/2023, the patient did have a low-grade fever of 99.7 degrees Fahrenheit this afternoon, patient seem to be more appropriate today, and is breathing comfortably on room air and no need for supplemental oxygen, the patient denies chest pain shortness of breath or cough, patient denies abdominal pain and no nausea vomiting or diarrhea. Patient white count is 9.0, creatinine 0.66 Objective - Vital Signs Vital signs: Vital Signs Temp 99.4 F 03/11/23 07:38 Pulse 112 H 03/11/23 07:38 Resp 18 03/11/23 09:04 BP 145/57 03/11/23 07:38 Pulse Ox 98 03/11/23 07:38 FiO2 Intake & Output 03/10/23 03/11/23 03/11/23 18:59 06:59 18:59 Output Total 380 250 Balance -380 -250 Output: Urine 380 250 Other: Voiding Method Indwelling Catheter Indwelling Catheter Indwelling Catheter # Voids 3 # Bowel Movements 3 - Exam GENERAL DESCRIPTION: An elderly male lying in bed in no distress RESPIRATORY SYSTEM: Unlabored breathing , decreased breath sounds at bases HEART: S1 S2 regular rate and rhythm , ABDOMEN: Soft , no tenderness EXTREMITIES: Right posterior heel with a stage II pressure ulcer minimal slough tissue no surrounding redness - Labs CBC & Chem 7: 03/11/23 07:34 03/11/23 07:34 Labs: Abnormal Lab Results - Last 24 Hours (Table) 03/10/23 03/11/23 03/11/23 Range/Units 20:28 06:59 07:34 RBC (4.30-5.90) m/uL Hgb (13.0-17.5) gm/dL Hct (39.0-53.0) % PT 32.2 H (10.0-12.5) sec INR 3.3 H (<1.2) Sodium (137-145) mmol/L Potassium (3.5-5.1) mmol/L BUN (9-20) mg/dL Glucose (74-99) mg/dL POC Glucose (mg/dL) 131 H 139 H (70-110) mg/dL Calcium (8.4-10.2) mg/dL 03/11/23 03/11/23 03/11/23 Range/Units 07:34 07:34 11:25 RBC 3.19 L (4.30-5.90) m/uL Hgb 8.8 L (13.0-17.5) gm/dL Hct 27.6 L (39.0-53.0) % PT (10.0-12.5) sec INR (<1.2) Sodium 135 L (137-145) mmol/L Potassium 3.4 L (3.5-5.1) mmol/L BUN 8 L (9-20) mg/dL Glucose 134 H (74-99) mg/dL POC Glucose (mg/dL) 183 H (70-110) mg/dL Calcium 7.5 L (8.4-10.2) mg/dL Assessment and Plan (1) Left leg cellulitis Current Visit: Yes Status: Acute Code(s): L03.116 - CELLULITIS OF LEFT LOWER LIMB SNOMED Code(s): 89168617422092206 (2) UTI (urinary tract infection) Current Visit: Yes Status: Acute Code(s): N39.0 - URINARY TRACT INFECTION, SITE NOT SPECIFIED SNOMED Code(s): 33289738 (3) Positive blood culture Current Visit: Yes Status: Acute Code(s): R78.81 - BACTEREMIA SNOMED Code(s): 493579527 (4) Leukocytosis Current Visit: Yes Status: Acute Code(s): D72.829 - ELEVATED WHITE BLOOD CELL COUNT, UNSPECIFIED SNOMED Code(s): 100107339 (5) Ulcer of left foot Current Visit: No Status: Acute Code(s): L97.529 - NON-PRESSURE CHRONIC ULCER OTH PRT LEFT FOOT W UNSP SEVERITY SNOMED Code(s): 134756024 Plan: 1patient presented to the hospital with elevated white count with initial concern for possible left heel ulcer and cellulitis however the patient also have a positive UA and there was concern for catheter associated UTI 2positive blood culture 2 out of 2 staph epi question of contamination, repeat blood culture has been negative, vancomycin has been discontinued 3-patient local wound care to the right posterior heel wound with the Santyl followed by moist dressing keep the area of the pressure 4-positive urine culture ESBL Klebsiella, ultrasound of the kidney bladder did not show any abscess or obstructive uropathy 5patient did have some mental status changes being monitored closely by admitting team and psych is seeing the patient today, patient antibiotic has been adjusted to Invanz 1 g daily and monitor clinical course closely Dictation was produced using [employer] dictation software. please excuse any grammatical, word or spelling errors. Time with Patient: Less than 30
[2023-03-11 16:51] LABS: Glucose,Whole Blood 197 mg/dL (70-110)
--- NOTE | 2023-03-11 17:05 | P.PN ---
Subjective Progress Note Date: 03/11/23 78-year-old male with a known history of coronary artery disease status post stent placement, atrial fibrillation on anticoagulation with Coumadin, hypertension, diabetes type 2 insulin-dependent, hyperlipidemia, COPD, gout and dementia who is currently at assisted was sent to hospital due to worsening leukocytosis. Patient discharged from hospital recently on 02/09/2023 after treatment for left heel diabetic foot ulcer and surrounding cellulitis. Patient does have indwelling Quezada catheter. Cognitive impairment and could not provide much history. Patient's daughter is at bedside. Otherwise patient does not have any fever or chills. Denies any abdominal pain. No nausea vomiting or diarrhea. Chest x-ray showed no acute cardiopulmonary process/disease. Ankle x-ray showed 7 mm ossific density at the distal Achilles tendon on with mild thickening. Consider chronic insertional tendinopathy. Sequela of old injury to the medial malleolus. No vaughn lytic destruction identified to clearly indicate osteomyelitis. Laboratory data showed WBC 22.0 hemoglobin 13.0 and platelets 284 Sodium 136 potassium 3.9 chloride 97 bicarb is 31 BUN 60 and creatinine 1.68 and blood sugar 197. Liver enzymes are not elevated. Albumin 3.4 Urinalysis showed large leukocyte esterase nitrite positive with elevated WBCs 13 and occasional bacteria. Influenza A, B, RSV and COVID-19 PCR not detected. 03/10/2023, the patient continues to be afebrile patient is currently breathing comfortably on room air not requiring any oxygen, the patient seem to be slightly more awake and alert today and in good mood and asked specifically denies having any chest pain shortness of breath or cough, the patient denies nausea vomiting no abdominal pain no diarrhea. White count is 8.7, creatinine 0.64 blood culture repeat has been negative patient presented to the hospital with elevated white count with initial concern for possible left heel ulcer and cellulitis however the patient also have a positive UA and there was concern for catheter associated UTI positive blood culture 2 out of 2 staph epi question of contamination, repeat blood culture has been negative, vancomycin has been discontinued -patient local wound care to the right posterior heel wound with the Santyl followed by moist dressing keep the area of the pressure -positive urine culture ESBL Klebsiella, ultrasound of the kidney bladder did not show any abscess or obstructive uropathy patient continued to show clinical improvement and will continue with the meropenem, plan is to finish therapy with IV Invanz duration of antibiotic about 7 to 10 days total, at the bedside question concern answered 03/11/2023 Patient is seen and evaluated and discussed with nursing staff; continues to be agitated and noncompliant with treatment; has been refusing all medications Patient has been evaluated by psychiatry and recommending to add Depakote to 50 mg daily for mood stabilization, continue Seroquel 25 mg nightly for sleep and mood stabilization, Seroquel 25 mg twice daily as needed added for agitation; Haldol is to be discontinued and replaced with Zyprexa as needed -- Patient to continue on Aricept and BuSpar Objective - Vital Signs Vital signs: Vital Signs Temp 99.4 F 03/11/23 07:38 Pulse 112 H 03/11/23 07:38 Resp 18 03/11/23 09:04 BP 145/57 03/11/23 07:38 Pulse Ox 98 03/11/23 07:38 FiO2 Intake & Output 03/10/23 03/11/23 03/11/23 18:59 06:59 18:59 Output Total 380 250 Balance -380 -250 Output: Urine 380 250 Other: Voiding Method Indwelling Catheter Indwelling Catheter Indwelling Catheter # Voids 3 # Bowel Movements 3 - Exam -GENERAL: The patient is alert and oriented x2-3, not in any acute distress. Well developed, well nourished. HEENT: Pupils are round and equally reacting to light. EOMI. No scleral icterus. No conjunctival pallor. Normocephalic, atraumatic. No pharyngeal erythema. No th yromegaly. CARDIOVASCULAR: S1 and S2 present. No murmurs, rubs, or gallops. PULMONARY: Chest is clear to auscultation, no wheezing , no crackles. ABDOMEN: Soft, nontender, nondistended, normoactive bowel sounds. No palpable organomegaly. MUSCULOSKELETAL: No joint swelling or deformity. -EXTREMITIES: No cyanosis, clubbing, or pedal edema. Left leg cellulitis NEUROLOGICAL: Gross neurological examination did not reveal any focal deficits. SKIN: No rashes. no petechiae. - Labs CBC & Chem 7: 03/11/23 07:34 03/11/23 07:34 Labs: Abnormal Lab Results - Last 24 Hours (Table) 03/10/23 03/10/23 03/11/23 Range/Units 11:25 20:28 06:59 RBC (4.30-5.90) m/uL Hgb (13.0-17.5) gm/dL Hct (39.0-53.0) % PT (10.0-12.5) sec INR (<1.2) Sodium (137-145) mmol/L Potassium (3.5-5.1) mmol/L BUN (9-20) mg/dL Glucose (74-99) mg/dL POC Glucose (mg/dL) 66 L 131 H 139 H (70-110) mg/dL Calcium (8.4-10.2) mg/dL 03/11/23 03/11/23 03/11/23 Range/Units 07:34 07:34 07:34 RBC 3.19 L (4.30-5.90) m/uL Hgb 8.8 L (13.0-17.5) gm/dL Hct 27.6 L (39.0-53.0) % PT 32.2 H (10.0-12.5) sec INR 3.3 H (<1.2) Sodium 135 L (137-145) mmol/L Potassium 3.4 L (3.5-5.1) mmol/L BUN 8 L (9-20) mg/dL Glucose 134 H (74-99) mg/dL POC Glucose (mg/dL) (70-110) mg/dL Calcium 7.5 L (8.4-10.2) mg/dL Assessment and Plan Assessment: Hypernatremia diabetic left heel ulcer stage 3 with surrounding cellulitis . Acute urinary tract infection. Urine culture: ESBL Klebsiella. Patient has indwelling Quezada catheter. UTI related to Quezada catheter Coagulopathy secondary to high INR Anemia, with worsening hemoglobin Paroxysmal atrial fibrillation on anticoagulation with Coumadin Acute kidney injury likely prerenal creatinine 1.68 and baseline 1.1 proved Generalized weakness and unable to ambulate without support. Hypoglycemia with uncontrolled diabetes type 2 insulin-dependent Coronary arteries with history of stent placement Hypertension Hyperlipidemia Dementia/cognitive impairment Stage II sacral decub ulcers. Plan: Start the patient on D5W with sodium monitoring Continue with meropenem Infectious disease consult on the behavioral health case manager INR and hemoglobin Continue with insulin 10 units in monitor glucose Labs and medication were reviewed.. Continue same treatment. Continue with symptomatic treatment. Resume home medication. Monitor labs and vitals. DVT and GI prophylaxis. Further recommendations as per clinical course of the patient DVT prophylaxis: on Coumadin GI Prophylaxis: Ppi PT/OT: Pending Prognosis is guarded
[2023-03-11] MEDS: WARFARIN 0.5 MG TAB PO ONE (17:15)
[2023-03-11 19:55] LABS: Glucose,Whole Blood 164 mg/dL (70-110)
[2023-03-12] MEDS: hydrALAZINE HCL 20 MG/ML 1 ML VIAL IVP PRN (01:12)
[2023-03-12 05:36] LABS: Glucose,Whole Blood 184 mg/dL (70-110)
[2023-03-12 10:47] LABS: Basophils % (A) 0 %; Eosinophils # (A) 0.1 k/uL (0-0.7); Eosinophils % (A) 1 %; HCT 27.8 % (39.0-53.0); HGB 8.9 gm/dL (13.0-17.5); Hypochromasia Slight; Lymphocytes % (A) 13 %; MCH 27.3 pg (25.0-35.0); MCHC 32.1 g/dL (31.0-37.0); MCV 85.2 fL (80.0-100.0); Mean Platelet Volume 8.4; Monocytes # (A) 0.3 k/uL (0-1.0); Monocytes % (A) 5 %; Neutrophils # (A) 6.1 k/uL (1.3-7.7); Neutrophils % (A) 80 %; Platelet Count 434 k/uL (150-450); RBC 3.27 m/uL (4.30-5.90); RDW 15.6 % (11.5-15.5); WBC 7.6 k/uL (3.8-10.6)
[2023-03-12] MEDS: POTASSIUM CHLORIDE ER 20 MEQ TAB.ER PO STA (10:58)
[2023-03-12 11:01] LABS: INR 2.9 (<1.2); Prothrombin Time 28.8 sec (10.0-12.5)
[2023-03-12 11:12] LABS: African American GFR (CKD) >90 (>60 ml/min/1.73 sqM); Anion Gap 4 mmol/L; Blood Urea Nitrogen 10 mg/dL (9-20); Calcium 7.9 mg/dL (8.4-10.2); Carbon Dioxide 27 mmol/L (22-30); Chloride 108 mmol/L (98-107); Glucose 146 mg/dL (74-99); Non-African American GFR(CKD) >90 (>60 ml/min/1.73 sqM); Sodium 139 mmol/L (137-145)
[2023-03-12 11:24] LABS: Glucose,Whole Blood 174 mg/dL (70-110)
[2023-03-12 16:31] LABS: Glucose,Whole Blood 153 mg/dL (70-110)
[2023-03-12] MEDS: WARFARIN 1 MG TAB PO ONE (17:10)
[2023-03-12 20:29] LABS: Glucose,Whole Blood 168 mg/dL (70-110)
[2023-03-12] MEDS ORDERED: Potassium Replacement Protocol 1 EACH MISC MISCELLANE PRN (21:08)
[2023-03-12] MEDS ORDERED: Magnesium Replacement Protocol 1 EACH MISC MISCELLANE PRN (21:08)
--- NOTE | 2023-03-12 21:17 | P.PN ---
Subjective Patient is a 78-year-old male with a known history of coronary artery disease status post stent placement, atrial fibrillation on anticoagulation with Coumadin, hypertension, diabetes type 2 insulin-dependent, hyperlipidemia, COPD, gout and dementia who is currently at [facility] was sent to hospital due to worsening leukocytosis. Patient discharged from hospital recently on 02/09/2023 after treatment for left heel diabetic foot ulcer and surrounding cellulitis. Patient does have indwelling Quzeada catheter. Cognitive impairment and could not provide much history. Patient's daughter is at bedside. Otherwise patient does not have any fever or chills. Denies any abdominal pain. No nausea vomiting or diarrhea. Chest x-ray showed no acute cardiopulmonary process/disease. Ankle x-ray showed 7 mm ossific density at the distal Achilles tendon on with mild thickening. Consider chronic insertional tendinopathy. Sequela of old injury to the medial malleolus. No vaughn lytic destruction identified to clearly indicate osteomyelitis. Laboratory data showed WBC 22.0 hemoglobin 13.0 and platelets 284 Sodium 136 potassium 3.9 chloride 97 bicarb is 31 BUN 60 and creatinine 1.68 and blood sugar 197. Liver enzymes are not elevated. Albumin 3.4 Urinalysis showed large leukocyte esterase nitrite positive with elevated WBCs 13 and occasional bacteria. Influenza A, B, RSV and COVID-19 PCR not detected. Recent urine cultures from 02/25/2023 showed gram-negative bacilli. 03/01/2023 Patient is lying in the bed. Awake alert and oriented x 1-2. Mentation is at baseline. Currently patient is room air. No complaints of leg pain. Patient does have indwelling Quezada catheter. Blood cultures showed gram- positive cocci and patient was started on vancomycin. Urine culture is pending. Patient has been afebrile. Wound care is following Patient remains on broad-spectrum antibiotics. ID is on board. Laboratory data showed WBC trending down to 22.0 hemoglobin 13.0 and platelets 284. Sodium 136 potassium 3.9 chloride 97 bicarb is 31 BUN 16 creatinine 1.68 and blood sugar 197. Urinalysis showed large leukocyte esterase with elevated WBC count. Patient does have chronic indwelling Quezada catheter. 03/02/2023 Patient is currently resting in the bed. Awake alert and mentation is at baseline.. Currently on room air. The patient has been afebrile. No complaints of chest pain or shortness of breath. No nausea vomiting or diarrhea noted. Patient is being continued on vancomycin due to gram-positive bacteremia. Turnout to be coagulase-negative staph. Antibiotics otherwise changed to Unasyn as per ID recommendations. Repeat urinalysis was ordered. Initial urine culture is showing gram-negative bacilli. ID is on board. 03/03/2023 Patient is mildly confused especially about time, he knows he is in hospital in [place] and he couldn't tell the name of the president He is admitted with left leg cellulitis and currently is covered with IV vancomycin and Unasyn No wound culture There was suspicion of UTI and urine culture is growing gram-negative bacilli He has positive blood culture 2 suspicious for contamination versus infection. No heart murmur is heard No evidence of bleeding. However his INR still high 4.0 today, hemoglobin went down to 11.4 down to 9.8 Going to repeat hemoglobin tonight and do anemia workup. C2 this morning and Levemir 15 units lower to 12 units 03/04/2039 Patient today is confused, mildly agitated but followed commands, looks somewhat upset and sleepy from pain medication Spell been treated for his left leg cellulitis and acute urinary tract infection Urine culture growing ESBL Klebsiella and his Unasyn was switched to meropenem based on sensitivity and continued with IV vancomycin for his left leg cellulitis Hemoglobin is stable at 10, repeat INR is pending today. Leukocytosis is improving to 16.6. His last fever 100.3 today. Blood culture shows staph epidermidis Anemia workup as ordered and is pending Discussed with staff and bedside nurse 03/05/2023 Patient still very weak and lethargic, distal also encephalopathic kind confused, he does not answer a lot of question and follow-up, only at certain times indicate in his delirium on the top of his encephalopathy. Most likely related to his sepsis from his left leg cellulitis and Urinary tract infection related to Quezada catheter. Urine culture is growing ESBL Klebsiella, and he is currently covered with IV m eropenem, IV vancomycin was stopped. Patient probably will need IV antibiotics upon discharge we checked renal ultrasound today which was negative for obstructive uropathy given his significant infection Also patient INR is 3.5. Hemoglobin 8.5. 03/06/2023 Patient more confused and lethargic today, he does not answers my questions or follow commands, his mentation also reported to be worse by family doctor daughter today. His aneurysm was 3.5, repeat INR today is still pending, going to order CT of the brain to rule out hemorrhage. His been treated also with meropenem for his left leg cellulitis, with leg looks less red ,s till warm, mild swelling , no much tenderness also has been treated for UTI with Quezada catheter in place. Culture is growing ESBL Klebsiella. Also for bacteremia with possible contamination. Patient still not eaten much, glucose controlled after we lowered his Levemir 10 units. Also his hands well and therefore we going to switch his fluid #75 mL down to D5 normal saline at 50 mL/h with close monitoring Today I talked to the daughter Gabriella [phone] per her request, all her questions were answered and I discussed the case with her updating her about thi s problem and management plan and she verbalized understanding and acceptance 03/07/2023 Patient awake still slow to answer questions. He still looks somewhat confused and he got agitation at time at bedside and states that he has dementia more than 6 years which is slowly progressive and may be contributing to his slow recovery. He denies specific symptoms. No chest pain or dyspnea. He is afebrile and hemodynamically stable. Leukocytosis back to normal today 15.1 down to 9.8. Hemoglobin stable 9.6. INR 3.0 and patient is going to 1 mg of warfarin tonight. BNP is unremarkable. Patient remains on meropenem with the plan for outpatient IV antibiotic. His home dose of insulin 15 units lower to 10 units because patient was not eating much because of his infection and mental status. Glucose currently controlled 03/08/2023 Patient remains confused and agitated at times. It could be part of his worsening dementia as per at bedside for more than 5-6 years complicated by his infection and sepsis and metabolic encephalopathy. He is getting Seroquel and Haldol when necessary. He remains treated for UTI with ESBL Klebsiella with meropenem and lower extremity cellulitis and he is improving regarding this. Currently he is afebrile and leukocytosis back to normal at 9.9. Hemoglobin stable 8.4. INR 3.4 and 14 minutes and hold for now. His sodium come back elevated at 154 (result came back late) so started patient on D5W at 75 mm/h with close monitoring of solid 03/12/2023 Patient today was awake alert, calm but when I talked to him he agreed to answer me he told me he is in [facility], the date of the name of the president. He has inside after his illness with limitation. However his mentation almost close or back to baseline. at bedside. She agrees with his improvement. Patient is taking his oral medication. He remains on IV antibiotics and is proven Plan is to obtain PICC line tomorrow for IV antibiotics upon discharge per ID team recommendation. Objective - Vital Signs Vital signs: Vital Signs Temp 99.4 F 03/12/23 07:58 Pulse 108 H 03/12/23 07:58 Resp 18 03/12/23 07:58 BP 152/77 03/12/23 07:58 Pulse Ox 96 03/12/23 07:58 FiO2 Intake & Output 03/11/23 03/12/23 03/12/23 18:59 06:59 18:59 Output Total 700 200 Balance -700 -200 Output: Urine 700 200 Other: Voiding Method Indwelling Catheter Indwelling Catheter # Bowel Movements 1 - Exam -GENERAL: The patient is alert and oriented x3, not in any acute distress. Well developed, well nourished. HEENT: Pupils are round and equally reacting to light. EOMI. No scleral icterus. No conjunctival pallor. Normocephalic, atraumatic. No pharyngeal erythema. No thyromegaly. CARDIOVASCULAR: S1 and S2 present. No murmurs, rubs, or gallops. PULMONARY: Chest is clear to auscultation, no wheezing , no crackles. ABDOMEN: Soft, nontender, nondistended, normoactive bowel sounds. No palpable organomegaly. MUSCULOSKELETAL: No joint swelling or deformity. -EXTREMITIES: No cyanosis, clubbing, or pedal edema. Left leg cellulitis NEUROLOGICAL: Gross neurological examination did not reveal any focal deficits. SKIN: No rashes. no petechiae. - Labs CBC & Chem 7: 03/12/23 10:18 03/12/23 10:18 Labs: Abnormal Lab Results - Last 24 Hours (Table) 03/11/23 03/11/23 03/12/23 Range/Units 16:49 19:53 05:34 RBC (4.30-5.90) m/uL Hgb (13.0-17.5) gm/dL Hct (39.0-53.0) % RDW (11.5-15.5) % PT (10.0-12.5) sec INR (<1.2) Potassium (3.5-5.1) mmol/L Chloride (98-107) mmol/L Glucose (74-99) mg/dL POC Glucose (mg/dL) 197 H 164 H 184 H (70-110) mg/dL Calcium (8.4-10.2) mg/dL 03/12/23 03/12/23 03/12/23 Range/Units 10:18 10:18 10:18 RBC 3.27 L (4.30-5.90) m/uL Hgb 8.9 L (13.0-17.5) gm/dL Hct 27.8 L (39.0-53.0) % RDW 15.6 H (11.5-15.5) % PT 28.8 H (10.0-12.5) sec INR 2.9 H (<1.2) Potassium 3.0 L (3.5-5.1) mmol/L Chloride 108 H (98-107) mmol/L Glucose 146 H (74-99) mg/dL POC Glucose (mg/dL) (70-110) mg/dL Calcium 7.9 L (8.4-10.2) mg/dL 03/12/23 Range/Units 11:23 RBC (4.30-5.90) m/uL Hgb (13.0-17.5) gm/dL Hct (39.0-53.0) % RDW (11.5-15.5) % PT (10.0-12.5) sec INR (<1.2) Potassium (3.5-5.1) mmol/L Chloride (98-107) mmol/L Glucose (74-99) mg/dL POC Glucose (mg/dL) 174 H (70-110) mg/dL Calcium (8.4-10.2) mg/dL Assessment and Plan Assessment: Hypernatremia diabetic left heel ulcer stage 3 with surrounding cellulitis . Acute urinary tract infection. Urine culture: ESBL Klebsiella. Patient has indwelling Quezada catheter. UTI related to Quezada catheter Coagulopathy secondary to high INR Anemia, with worsening hemoglobin Paroxysmal atrial fibrillation on anticoagulation with Coumadin Acute kidney injury likely prerenal creatinine 1.68 and baseline 1.1 proved Generalized weakness and unable to ambulate without support. Hypoglycemia with uncontrolled diabetes type 2 insulin-dependent Coronary arteries with history of stent placement Hypertension Hyperlipidemia Dementia/cognitive impairment Stage II sacral decub ulcers. Plan: Continue with invanz Infectious disease consult on the computer training specialist INR and hemoglobin Continue with insulin 10 units in monitor glucose Labs and medication were reviewed.. Continue same treatment. Continue with symptomatic treatment. Resume home medication. Monitor labs and vitals. DVT and GI prophylaxis. Further recommendations as per clinical course of the patient DVT prophylaxis: on Coumadin GI Prophylaxis: Ppi PT/OT: Pending Prognosis is guarded
[2023-03-12 21:50] LABS: Magnesium 1.7 mg/dL (1.6-2.3); Potassium 3.6 mmol/L (3.5-5.1)
[2023-03-12] MEDS: MAGNESIUM SULFATE-D5W PMX 1 GM in DEXTROSE/WATER 1 100ML.BAG IVPB ONE (23:06)
[2023-03-13] MEDS: POTASSIUM CHLORIDE 10 MEQ in WATER FOR INJECTION 1 100ML.BAG IVPB SCH (00:33)
[2023-03-13 06:18] LABS: Glucose,Whole Blood 84 mg/dL (70-110)
[2023-03-13 08:44] LABS: Prothrombin Time 52.2 sec (10.0-12.5)
[2023-03-13 08:50] LABS: INR 5.3 (<1.2)
[2023-03-13] MEDS: PHYTONADIONE ORAL 5 MG/5 ML ORAL.SYRG PO STA (09:54)
[2023-03-13 11:17] LABS: Potassium 3.6 mmol/L (3.5-5.1)
[2023-03-13 11:57] LABS: Glucose,Whole Blood 94 mg/dL (70-110)
--- NOTE | 2023-03-13 12:49 | P.PN ---
Subjective Progress Note Date: 03/12/23 Principal diagnosis: Reason for follow-up is left lower extremity cellulitis UTI and bacteremia Patient is a 78-year-old male with a past medical history significant for diabetes mellitus hypertension hyperlipidemia [place] patient [facility] for elevated white count, patient did have a left hip ulceration noted to have a cellulitis to the left lower extremity also have a chronic indwelling Quezada catheter with a positive UA and blood cultures came back positive with gram-positive cocci. On today's evaluation that is 03/12/2023, the patient continues to be afebrile, patient is more awake alert and appropriate today, breathing comfortably on room air, the patient denies chest pain shortness of breath and no significant cough, patient denies nausea no vomiting, no abdominal pain and no diarrhea. Patient did have white count of 7.6, creatinine 0.69 Objective - Vital Signs Vital signs: Vital Signs Temp 99.4 F 03/12/23 07:58 Pulse 108 H 03/12/23 07:58 Resp 18 03/12/23 07:58 BP 152/77 03/12/23 07:58 Pulse Ox 96 03/12/23 07:58 FiO2 Intake & Output 03/11/23 03/12/23 03/12/23 18:59 06:59 18:59 Output Total 700 200 Balance -700 -200 Output: Urine 700 200 Other: Voiding Method Indwelling Catheter Indwelling Catheter # Bowel Movements 1 - Exam GENERAL DESCRIPTION: An elderly male lying in bed in no distress RESPIRATORY SYSTEM: Unlabored breathing , decreased breath sounds at bases HEART: S1 S2 regular rate and rhythm , ABDOMEN: Soft , no tenderness EXTREMITIES: Right posterior heel with a stage II pressure ulcer minimal slough tissue no surrounding redness - Labs CBC & Chem 7: 03/12/23 10:18 03/13/23 07:43 Labs: Abnormal Lab Results - Last 24 Hours (Table) 03/11/23 03/11/23 03/12/23 Range/Units 16:49 19:53 05:34 RBC (4.30-5.90) m/uL Hgb (13.0-17.5) gm/dL Hct (39.0-53.0) % RDW (11.5-15.5) % PT (10.0-12.5) sec INR (<1.2) Potassium (3.5-5.1) mmol/L Chloride (98-107) mmol/L Glucose (74-99) mg/dL POC Glucose (mg/dL) 197 H 164 H 184 H (70-110) mg/dL Calcium (8.4-10.2) mg/dL 03/12/23 03/12/23 03/12/23 Range/Units 10:18 10:18 10:18 RBC 3.27 L (4.30-5.90) m/uL Hgb 8.9 L (13.0-17.5) gm/dL Hct 27.8 L (39.0-53.0) % RDW 15.6 H (11.5-15.5) % PT 28.8 H (10.0-12.5) sec INR 2.9 H (<1.2) Potassium 3.0 L (3.5-5.1) mmol/L Chloride 108 H (98-107) mmol/L Glucose 146 H (74-99) mg/dL POC Glucose (mg/dL) (70-110) mg/dL Calcium 7.9 L (8.4-10.2) mg/dL 03/12/23 Range/Units 11:23 RBC (4.30-5.90) m/uL Hgb (13.0-17.5) gm/dL Hct (39.0-53.0) % RDW (11.5-15.5) % PT (10.0-12.5) sec INR (<1.2) Potassium (3.5-5.1) mmol/L Chloride (98-107) mmol/L Glucose (74-99) mg/dL POC Glucose (mg/dL) 174 H (70-110) mg/dL Calcium (8.4-10.2) mg/dL Assessment and Plan (1) Left leg cellulitis Current Visit: Yes Status: Acute Code(s): L03.116 - CELLULITIS OF LEFT LOWER LIMB SNOMED Code(s): 22341632726331658 (2) UTI (urinary tract infection) Current Visit: Yes Status: Acute Code(s): N39.0 - URINARY TRACT INFECTION, SITE NOT SPECIFIED SNOMED Code(s): 46218732 (3) Positive blood culture Current Visit: Yes Status: Acute Code(s): R78.81 - BACTEREMIA SNOMED Code(s): 354625366 (4) Leukocytosis Current Visit: Yes Status: Acute Code(s): D72.829 - ELEVATED WHITE BLOOD CELL COUNT, UNSPECIFIED SNOMED Code(s): 860676557 (5) Ulcer of left foot Current Visit: No Status: Acute Code(s): L97.529 - NON-PRESSURE CHRONIC ULCER OTH PRT LEFT FOOT W UNSP SEVERITY SNOMED Code(s): 837944173 Plan: 1patient presented to the hospital with elevated white count with initial concern for possible left heel ulcer and cellulitis however the patient also have a positive UA and there was concern for catheter associated UTI 2positive blood culture 2 out of 2 staph epi question of contamination, repeat blood culture has been negative, vancomycin has been discontinued 3-patient local wound care to the right posterior heel wound with the Santyl followed by moist dressing keep the area of the pressure 4-positive urine culture ESBL Klebsiella, ultrasound of the kidney bladder did not show any abscess or obstructive uropathy 5patient did have improvement in his mentation and we will continue patient on Invanz 1 g daily and monitor clinical course closely Dictation was produced using [employer] dictation software. please excuse any grammatical, word or spelling errors. Time with Patient: Less than 30
--- NOTE | 2023-03-13 12:50 | P.PN ---
Subjective Progress Note Date: 03/13/23 Principal diagnosis: Reason for follow-up is left lower extremity cellulitis UTI and bacteremia Patient is a 78-year-old male with a past medical history significant for diabetes mellitus hypertension hyperlipidemia ND patient was brought into the hospital from the local residential concerning for elevated white count, patient did have a left hip ulceration noted to have a cellulitis to the left lower extremity also have a chronic indwelling Quezada catheter with a positive UA and blood cultures came back positive with gram-positive cocci. On today's evaluation that is 03/13/2023, the patient remains to be afebrile, patient is currently breathing comfortably on room air, the patient seemed to be sleepy this morning but, per the at the bedside no vomiting or diarrhea has been reported Patient INR is 5.3 potassium is 3.6 no CBC was done today Objective - Vital Signs Vital signs: Vital Signs Temp 98.5 F 03/13/23 07:45 Pulse 107 H 03/13/23 07:45 Resp 19 03/13/23 07:45 BP 137/61 03/13/23 07:45 Pulse Ox 96 03/13/23 07:45 FiO2 Intake & Output 03/12/23 03/13/23 03/13/23 18:59 06:59 18:59 Output Total 450 300 Balance -450 -300 Weight 95.254 kg Output: Urine 450 300 Other: Voiding Method Indwelling Catheter # Bowel Movements 1 - Exam GENERAL DESCRIPTION: An elderly male lying in bed in no distress RESPIRATORY SYSTEM: Unlabored breathing , decreased breath sounds at bases HEART: S1 S2 regular rate and rhythm , ABDOMEN: Soft , no tenderness EXTREMITIES: Right posterior heel with a stage II pressure ulcer minimal slough tissue no surrounding redness - Labs CBC & Chem 7: 03/12/23 10:18 03/13/23 07:43 Labs: Abnormal Lab Results - Last 24 Hours (Table) 03/12/23 03/12/23 03/13/23 Range/Units 16:30 20:28 07:43 PT 52.2 H (10.0-12.5) sec INR 5.3 H* (<1.2) POC Glucose (mg/dL) 153 H 168 H (70-110) mg/dL Assessment and Plan (1) Left leg cellulitis Current Visit: Yes Status: Acute Code(s): L03.116 - CELLULITIS OF LEFT LOWER LIMB SNOMED Code(s): 37947402557565657 (2) UTI (urinary tract infection) Current Visit: Yes Status: Acute Code(s): N39.0 - URINARY TRACT INFECTION, SITE NOT SPECIFIED SNOMED Code(s): 20773401 (3) Positive blood culture Current Visit: Yes Status: Acute Code(s): R78.81 - BACTEREMIA SNOMED Code(s): 121766499 (4) Leukocytosis Current Visit: Yes Status: Acute Code(s): D72.829 - ELEVATED WHITE BLOOD CELL COUNT, UNSPECIFIED SNOMED Code(s): 984230701 (5) Ulcer of left foot Current Visit: No Status: Acute Code(s): L97.529 - NON-PRESSURE CHRONIC ULCER OTH PRT LEFT FOOT W UNSP SEVERITY SNOMED Code(s): 549264350 Plan: 1patient presented to the hospital with elevated white count with initial concern for possible left heel ulcer and cellulitis however the patient also have a positive UA and there was concern for catheter associated UTI 2positive blood culture 2 out of 2 staph epi question of contamination, repeat blood culture has been negative, vancomycin has been discontinued 3-patient local wound care to the right posterior heel wound with the Santyl followed by moist dressing keep the area of the pressure 4-positive urine culture ESBL Klebsiella, ultrasound of the kidney bladder did not show any abscess or obstructive uropathy 5patient did have improvement in his mentation and currently covered with Invanz 1 g daily, at the bedside questions were answered Dictation was produced using [employer] dictation software. please excuse any grammatical, word or spelling errors. Time with Patient: Less than 30
[2023-03-13 15:06] LABS: INR 3.9 (<1.2); Prothrombin Time 37.8 sec (10.0-12.5)
[2023-03-13] MEDS: POTASSIUM CHLORIDE ER 20 MEQ TAB.ER PO STA (15:40)
[2023-03-13] MEDS: POTASSIUM CHLORIDE 20 MEQ in WATER FOR INJECTION 1 100ML.BAG IVPB ONE (16:45)
[2023-03-13] MEDS: WARFARIN 0.5 MG TAB PO ONE (16:47)
[2023-03-13 16:51] LABS: Glucose,Whole Blood 92 mg/dL (70-110)
--- NOTE | 2023-03-13 18:54 | P.PN ---
Subjective Patient is a 78-year-old male with a known history of coronary artery disease status post stent placement, atrial fibrillation on anticoagulation with Coumadin, hypertension, diabetes type 2 insulin-dependent, hyperlipidemia, COPD, gout and dementia who is currently at care home was sent to hospital due to worsening leukocytosis. Patient discharged from hospital recently on 02/09/2023 after treatment for left heel diabetic foot ulcer and surrounding cellulitis. Patient does have indwelling Quezada catheter. Cognitive impairment and could not provide much history. Patient's daughter is at bedside. Otherwise patient does not have any fever or chills. Denies any abdominal pain. No nausea vomiting or diarrhea. Chest x-ray showed no acute cardiopulmonary process/disease. Ankle x-ray showed 7 mm ossific density at the distal Achilles tendon on with mild thickening. Consider chronic insertional tendinopathy. Sequela of old injury to the medial malleolus. No vaughn lytic destruction identified to clearly indicate osteomyelitis. Laboratory data showed WBC 22.0 hemoglobin 13.0 and platelets 284 Sodium 136 potassium 3.9 chloride 97 bicarb is 31 BUN 60 and creatinine 1.68 and blood sugar 197. Liver enzymes are not elevated. Albumin 3.4 Urinalysis showed large leukocyte esterase nitrite positive with elevated WBCs 13 and occasional bacteria. Influenza A, B, RSV and COVID-19 PCR not detected. Recent urine cultures from 02/25/2023 showed gram-negative bacilli. 03/01/2023 Patient is lying in the bed. Awake alert and oriented x 1-2. Mentation is at baseline. Currently patient is room air. No complaints of leg pain. Patient does have indwelling Quezada catheter. Blood cultures showed gram- positive cocci and patient was started on vancomycin. Urine culture is pending. Patient has been afebrile. Wound care is following Patient remains on broad-spectrum antibiotics. ID is on board. Laboratory data showed WBC trending down to 22.0 hemoglobin 13.0 and platelets 284. Sodium 136 potassium 3.9 chloride 97 bicarb is 31 BUN 16 creatinine 1.68 and blood sugar 197. Urinalysis showed large leukocyte esterase with elevated WBC count. Patient does have chronic indwelling Quezada catheter. 03/02/2023 Patient is currently resting in the bed. Awake alert and mentation is at baseline.. Currently on room air. The patient has been afebrile. No complaints of chest pain or shortness of breath. No nausea vomiting or diarrhea noted. Patient is being continued on vancomycin due to gram-positive bacteremia. Turnout to be coagulase-negative staph. Antibiotics otherwise changed to Unasyn as per ID recommendations. Repeat urinalysis was ordered. Initial urine culture is showing gram-negative bacilli. ID is on board. 03/03/2023 Patient is mildly confused especially about time, he knows he is in hospital in [place] and he couldn't tell the name of the president He is admitted with left leg cellulitis and currently is covered with IV vancomycin and Unasyn No wound culture There was suspicion of UTI and urine culture is growing gram-negative bacilli He has positive blood culture 2 suspicious for contamination versus infection. No heart murmur is heard No evidence of bleeding. However his INR still high 4.0 today, hemoglobin went down to 11.4 down to 9.8 Going to repeat hemoglobin tonight and do anemia workup. C2 this morning and Levemir 15 units lower to 12 units 03/04/2039 Patient today is confused, mildly agitated but followed commands, looks somewhat upset and sleepy from pain medication Spell been treated for his left leg cellulitis and acute urinary tract infection Urine culture growing ESBL Klebsiella and his Unasyn was switched to meropenem based on sensitivity and continued with IV vancomycin for his left leg cellulitis Hemoglobin is stable at 10, repeat INR is pending today. Leukocytosis is improving to 16.6. His last fever 100.3 today. Blood culture shows staph epidermidis Anemia workup as ordered and is pending Discussed with staff and bedside nurse 03/05/2023 Patient still very weak and lethargic, distal also encephalopathic kind confused, he does not answer a lot of question and follow-up, only at certain times indicate in his delirium on the top of his encephalopathy. Most likely related to his sepsis from his left leg cellulitis and Urinary tract infection related to Quezada catheter. Urine culture is growing ESBL Klebsiella, and he is currently covered with IV m eropenem, IV vancomycin was stopped. Patient probably will need IV antibiotics upon discharge we checked renal ultrasound today which was negative for obstructive uropathy given his significant infection Also patient INR is 3.5. Hemoglobin 8.5. 03/06/2023 Patient more confused and lethargic today, he does not answers my questions or follow commands, his mentation also reported to be worse by family doctor daughter today. His aneurysm was 3.5, repeat INR today is still pending, going to order CT of the brain to rule out hemorrhage. His been treated also with meropenem for his left leg cellulitis, with leg looks less red ,s till warm, mild swelling , no much tenderness also has been treated for UTI with Quezada catheter in place. Culture is growing ESBL Klebsiella. Also for bacteremia with possible contamination. Patient still not eaten much, glucose controlled after we lowered his Levemir 10 units. Also his hands well and therefore we going to switch his fluid #75 mL down to D5 normal saline at 50 mL/h with close monitoring Today I talked to the daughter Gabriella [phone] per her request, all her questions were answered and I discussed the case with her updating her about thi s problem and management plan and she verbalized understanding and acceptance 03/07/2023 Patient awake still slow to answer questions. He still looks somewhat confused and he got agitation at time at bedside and states that he has dementia more than 6 years which is slowly progressive and may be contributing to his slow recovery. He denies specific symptoms. No chest pain or dyspnea. He is afebrile and hemodynamically stable. Leukocytosis back to normal today 15.1 down to 9.8. Hemoglobin stable 9.6. INR 3.0 and patient is going to 1 mg of warfarin tonight. BNP is unremarkable. Patient remains on meropenem with the plan for outpatient IV antibiotic. His home dose of insulin 15 units lower to 10 units because patient was not eating much because of his infection and mental status. Glucose currently controlled 03/08/2023 Patient remains confused and agitated at times. It could be part of his worsening dementia as per at bedside for more than 5-6 years complicated by his infection and sepsis and metabolic encephalopathy. He is getting Seroquel and Haldol when necessary. He remains treated for UTI with ESBL Klebsiella with meropenem and lower extremity cellulitis and he is improving regarding this. Currently he is afebrile and leukocytosis back to normal at 9.9. Hemoglobin stable 8.4. INR 3.4 and 14 minutes and hold for now. His sodium come back elevated at 154 (result came back late) so started patient on D5W at 75 mm/h with close monitoring of solid 03/12/2023 Patient today was awake alert, calm but when I talked to him he agreed to answer me he told me he is in [facility], the date of the name of the president. He has inside after his illness with limitation. However his mentation almost close or back to baseline. at bedside. She agrees with his improvement. Patient is taking his oral medication. He remains on IV antibiotics and is proven Plan is to obtain PICC line tomorrow for IV antibiotics upon discharge per ID team recommendation. 03/13/2023 Patient mentation is stable, at baseline. With a bit more sleepy than usual. However easily arousable. Follow commands. No new complaints. Patient could not get the PICC line today for IV antibiotics upon discharge because of the INR jumped up 5.3 although he was receiving 1 mg of warfarin daily over the last 3 days. Vitamin K by mouth is ordered 1 however it was not given. Repeat INR back to a lower level at 3.9. No evidence of bleeding. We'll keep monitoring. Still pending PICC line placement Remains on IV InVance Objective - Vital Signs Vital signs: Vital Signs Temp 98.4 F 03/13/23 15:45 Pulse 77 03/13/23 15:45 Resp 19 03/13/23 15:45 BP 133/65 03/13/23 15:45 Pulse Ox 96 03/13/23 15:45 FiO2 Intake & Output 03/12/23 03/13/23 03/13/23 18:59 06:59 18:59 Output Total 450 300 450 Balance -450 -300 -450 Weight 95.254 kg Output: Urine 450 300 450 Other: Voiding Method Indwelling Catheter Indwelling Catheter # Bowel Movements 1 - Exam -GENERAL: The patient is alert and oriented x3, not in any acute distress. Well developed, well nourished. HEENT: Pupils are round and equally reacting to light. EOMI. No scleral icterus. No conjunctival pallor. Normocephalic, atraumatic. No pharyngeal erythema. No thyromegaly. CARDIOVASCULAR: S1 and S2 present. No murmurs, rubs, or gallops. PULMONARY: Chest is clear to auscultation, no wheezing , no crackles. ABDOMEN: Soft, nontender, nondistended, normoactive bowel sounds. No palpable organomegaly. MUSCULOSKELETAL: No joint swelling or deformity. -EXTREMITIES: No cyanosis, clubbing, or pedal edema. Left leg cellulitis NEUROLOGICAL: Gross neurological examination did not reveal any focal deficits. SKIN: No rashes. no petechiae. - Labs CBC & Chem 7: 03/12/23 10:18 03/13/23 07:43 Labs: Abnormal Lab Results - Last 24 Hours (Table) 03/12/23 03/13/23 03/13/23 Range/Units 20:28 07:43 11:13 PT 52.2 H 37.8 H (10.0-12.5) sec INR 5.3 H* 3.9 H (<1.2) POC Glucose (mg/dL) 168 H (70-110) mg/dL Assessment and Plan Assessment: Hypernatremia diabetic left heel ulcer stage 3 with surrounding cellulitis . Acute urinary tract infection. Urine culture: ESBL Klebsiella. Patient has indwelling Quezada catheter. UTI related to Quezada catheter Coagulopathy secondary to high INR Anemia, with worsening hemoglobin Paroxysmal atrial fibrillation on anticoagulation with Coumadin Acute kidney injury likely prerenal creatinine 1.68 and baseline 1.1 proved Generalized weakness and unable to ambulate without support. Hypoglycemia with uncontrolled diabetes type 2 insulin-dependent Coronary arteries with history of stent placement Hypertension Hyperlipidemia Dementia/cognitive impairment Stage II sacral decub ulcers. Plan: Continue with invanz Infectious disease consult on the case resource manager INR and hemoglobin Continue with insulin 10 units in monitor glucose Labs and medication were reviewed.. Continue same treatment. Continue with symptomatic treatment. Resume home medication. Monitor labs and vitals. DVT and GI prophylaxis. Further recommendations as per clinical course of the patient DVT prophylaxis: on Coumadin GI Prophylaxis: Ppi PT/OT: Pending Prognosis is guarded
[2023-03-13 21:14] LABS: Glucose,Whole Blood 89 mg/dL (70-110)
[2023-03-14 06:21] LABS: Glucose,Whole Blood 116 mg/dL (70-110)
[2023-03-14 08:54] LABS: INR 3.6 (<1.2)
[2023-03-14 10:46] LABS: Basophils % (A) 0 %; Eosinophils # (A) 0.2 k/uL (0-0.7); Eosinophils % (A) 3 %; HCT 27.1 % (39.0-53.0); HGB 8.5 gm/dL (13.0-17.5); Hypochromasia Moderate; Lymphocytes # (A) 1.2 k/uL (1.0-4.8); Lymphocytes % (A) 19 %; MCH 27.5 pg (25.0-35.0); MCHC 31.2 g/dL (31.0-37.0); MCV 88.1 fL (80.0-100.0); Mean Platelet Volume 8.6; Monocytes # (A) 0.3 k/uL (0-1.0); Monocytes % (A) 5 %; Neutrophils # (A) 4.4 k/uL (1.3-7.7); Neutrophils % (A) 71 %; Platelet Count 464 k/uL (150-450); RBC 3.08 m/uL (4.30-5.90); RDW 15.7 % (11.5-15.5); WBC 6.2 k/uL (3.8-10.6)
[2023-03-14 10:55] LABS: ALT 9 U/L (4-49); AST 24 U/L (17-59); African American GFR (CKD) >90 (>60 ml/min/1.73 sqM); Albumin 1.9 g/dL (3.5-5.0); Albumin/Globulin Ratio 0.7; Alkaline Phosphatase 52 U/L (38-126); Anion Gap 7 mmol/L; Blood Urea Nitrogen 8 mg/dL (9-20); Calcium 7.7 mg/dL (8.4-10.2); Carbon Dioxide 22 mmol/L (22-30); Chloride 110 mmol/L (98-107); Globulin 2.8 g/dL; Glucose 106 mg/dL (74-99); Magnesium 1.8 mg/dL (1.6-2.3); Non-African American GFR(CKD) >90 (>60 ml/min/1.73 sqM); Potassium 3.8 mmol/L (3.5-5.1); Sodium 139 mmol/L (137-145); Total Bilirubin 0.5 mg/dL (0.2-1.3); Total Protein 4.7 g/dL (6.3-8.2)
[2023-03-14] MEDS: PHYTONADIONE ORAL 5 MG/5 ML ORAL.SYRG PO ONE (11:05)
[2023-03-14 11:55] LABS: Glucose,Whole Blood 103 mg/dL (70-110)
--- NOTE | 2023-03-14 12:27 | P.PN ---
Subjective Patient is a 78-year-old male with a known history of coronary artery disease status post stent placement, atrial fibrillation on anticoagulation with Coumadin, hypertension, diabetes type 2 insulin-dependent, hyperlipidemia, COPD, gout and dementia who is currently at care home was sent to hospital due to worsening leukocytosis. Patient discharged from hospital recently on 02/09/2023 after treatment for left heel diabetic foot ulcer and surrounding cellulitis. Patient does have indwelling Quezada catheter. Cognitive impairment and could not provide much history. Patient's daughter is at bedside. Otherwise patient does not have any fever or chills. Denies any abdominal pain. No nausea vomiting or diarrhea. Chest x-ray showed no acute cardiopulmonary process/disease. Ankle x-ray showed 7 mm ossific density at the distal Achilles tendon on with mild thickening. Consider chronic insertional tendinopathy. Sequela of old injury to the medial malleolus. No vaughn lytic destruction identified to clearly indicate osteomyelitis. Laboratory data showed WBC 22.0 hemoglobin 13.0 and platelets 284 Sodium 136 potassium 3.9 chloride 97 bicarb is 31 BUN 60 and creatinine 1.68 and blood sugar 197. Liver enzymes are not elevated. Albumin 3.4 Urinalysis showed large leukocyte esterase nitrite positive with elevated WBCs 13 and occasional bacteria. Influenza A, B, RSV and COVID-19 PCR not detected. Recent urine cultures from 02/25/2023 showed gram-negative bacilli. 03/01/2023 Patient is lying in the bed. Awake alert and oriented x 1-2. Mentation is at baseline. Currently patient is room air. No complaints of leg pain. Patient does have indwelling Quezada catheter. Blood cultures showed gram- positive cocci and patient was started on vancomycin. Urine culture is pending. Patient has been afebrile. Wound care is following Patient remains on broad-spectrum antibiotics. ID is on board. Laboratory data showed WBC trending down to 22.0 hemoglobin 13.0 and platelets 284. Sodium 136 potassium 3.9 chloride 97 bicarb is 31 BUN 16 creatinine 1.68 and blood sugar 197. Urinalysis showed large leukocyte esterase with elevated WBC count. Patient does have chronic indwelling Quezada catheter. 03/02/2023 Patient is currently resting in the bed. Awake alert and mentation is at baseline.. Currently on room air. The patient has been afebrile. No complaints of chest pain or shortness of breath. No nausea vomiting or diarrhea noted. Patient is being continued on vancomycin due to gram-positive bacteremia. Turnout to be coagulase-negative staph. Antibiotics otherwise changed to Unasyn as per ID recommendations. Repeat urinalysis was ordered. Initial urine culture is showing gram-negative bacilli. ID is on board. 03/03/2023 Patient is mildly confused especially about time, he knows he is in hospital in [place] and he couldn't tell the name of the president He is admitted with left leg cellulitis and currently is covered with IV vancomycin and Unasyn No wound culture There was suspicion of UTI and urine culture is growing gram-negative bacilli He has positive blood culture 2 suspicious for contamination versus infection. No heart murmur is heard No evidence of bleeding. However his INR still high 4.0 today, hemoglobin went down to 11.4 down to 9.8 Going to repeat hemoglobin tonight and do anemia workup. C2 this morning and Levemir 15 units lower to 12 units 03/04/2039 Patient today is confused, mildly agitated but followed commands, looks somewhat upset and sleepy from pain medication Spell been treated for his left leg cellulitis and acute urinary tract infection Urine culture growing ESBL Klebsiella and his Unasyn was switched to meropenem based on sensitivity and continued with IV vancomycin for his left leg cellulitis Hemoglobin is stable at 10, repeat INR is pending today. Leukocytosis is improving to 16.6. His last fever 100.3 today. Blood culture shows staph epidermidis Anemia workup as ordered and is pending Discussed with staff and bedside nurse 03/05/2023 Patient still very weak and lethargic, distal also encephalopathic kind confused, he does not answer a lot of question and follow-up, only at certain times indicate in his delirium on the top of his encephalopathy. Most likely related to his sepsis from his left leg cellulitis and Urinary tract infection related to Quezada catheter. Urine culture is growing ESBL Klebsiella, and he is currently covered with IV m eropenem, IV vancomycin was stopped. Patient probably will need IV antibiotics upon discharge we checked renal ultrasound today which was negative for obstructive uropathy given his significant infection Also patient INR is 3.5. Hemoglobin 8.5. 03/06/2023 Patient more confused and lethargic today, he does not answers my questions or follow commands, his mentation also reported to be worse by family doctor daughter today. His aneurysm was 3.5, repeat INR today is still pending, going to order CT of the brain to rule out hemorrhage. His been treated also with meropenem for his left leg cellulitis, with leg looks less red ,s till warm, mild swelling , no much tenderness also has been treated for UTI with Quezada catheter in place. Culture is growing ESBL Klebsiella. Also for bacteremia with possible contamination. Patient still not eaten much, glucose controlled after we lowered his Levemir 10 units. Also his hands well and therefore we going to switch his fluid #75 mL down to D5 normal saline at 50 mL/h with close monitoring Today I talked to the daughter Gabriella [phone] per her request, all her questions were answered and I discussed the case with her updating her about thi s problem and management plan and she verbalized understanding and acceptance 03/07/2023 Patient awake still slow to answer questions. He still looks somewhat confused and he got agitation at time at bedside and states that he has dementia more than 6 years which is slowly progressive and may be contributing to his slow recovery. He denies specific symptoms. No chest pain or dyspnea. He is afebrile and hemodynamically stable. Leukocytosis back to normal today 15.1 down to 9.8. Hemoglobin stable 9.6. INR 3.0 and patient is going to 1 mg of warfarin tonight. BNP is unremarkable. Patient remains on meropenem with the plan for outpatient IV antibiotic. His home dose of insulin 15 units lower to 10 units because patient was not eating much because of his infection and mental status. Glucose currently controlled 03/08/2023 Patient remains confused and agitated at times. It could be part of his worsening dementia as per at bedside for more than 5-6 years complicated by his infection and sepsis and metabolic encephalopathy. He is getting Seroquel and Haldol when necessary. He remains treated for UTI with ESBL Klebsiella with meropenem and lower extremity cellulitis and he is improving regarding this. Currently he is afebrile and leukocytosis back to normal at 9.9. Hemoglobin stable 8.4. INR 3.4 and 14 minutes and hold for now. His sodium come back elevated at 154 (result came back late) so started patient on D5W at 75 mm/h with close monitoring of solid 03/12/2023 Patient today was awake alert, calm but when I talked to him he agreed to answer me he told me he is in [facility], the date of the name of the president. He has inside after his illness with limitation. However his mentation almost close or back to baseline. at bedside. She agrees with his improvement. Patient is taking his oral medication. He remains on IV antibiotics and is proven Plan is to obtain PICC line tomorrow for IV antibiotics upon discharge per ID team recommendation. 03/13/2023 Patient mentation is stable, at baseline. With a bit more sleepy than usual. However easily arousable. Follow commands. No new complaints. Patient could not get the PICC line today for IV antibiotics upon discharge because of the INR jumped up 5.3 although he was receiving 1 mg of warfarin daily over the last 3 days. Vitamin K by mouth is ordered 1 however it was not given. Repeat INR back to a lower level at 3.9. No evidence of bleeding. We'll keep monitoring. Still pending PICC line placement Remains on IV InVance 03/14/2023 Patient awake and alert but staying in bed, looks lethargic. He denies specific complaint This pending PICC line placement which is on hold because of high INR 3.6 today. Going to give one-time dose of oral vitamin K 2.5 mg on hold Coumadin tonight, already discussed with staff. Patient will be discharged on IV antibiotics for his ESBL Klebsiella and left leg cellulitis which are improving. Quezada catheter in place Patient refused to take his oral medication yesterday and I talked to him and he to come Today he is still refuses his medication this morning. Also patient was not eating for the last 5-6 days. Patient denies specific complaints or choking. I talked to the patient and encouraged him to 8 with chest benefits explained for him and he agrees to start eating again. Patient already by psychiatrist and medications were adjusted previously. We'll ask for swallow evaluation. at bedside and perform patient declines PEG tube placement if needed. Objective - Vital Signs Vital signs: Vital Signs Temp 96.1 F L 03/14/23 08:00 Pulse 106 H 03/14/23 08:00 Resp 16 03/14/23 08:00 BP 137/63 03/14/23 08:00 Pulse Ox 98 03/14/23 02:00 FiO2 Intake & Output 03/13/23 03/14/23 03/14/23 18:59 06:59 18:59 Intake Total 150 300 70 Output Total 450 Balance -300 300 70 Weight 95.254 kg Intake: Intake, IV Titration 150 300 70 Amount Dextrose 5%-0.9% NaCl 1, 300 000 ml @ 50 mls/hr IV . Q20H [facility] Rx#:[id number] Ertapenem 1 gm In Sodium 50 50 Chloride 0.9% 50 ml @ 100 mls/hr IVPB DAILY [facility] Rx #:[id number] Potassium Chloride 20 meq 100 20 In Water For Injection 1 100ml.bag @ 50 mls/hr IVPB ONCE ONE Rx#: [id number] Output: Urine 450 Other: Voiding Method Indwelling Catheter Indwelling Catheter Indwelling Catheter - Exam -GENERAL: The patient is alert and oriented x3, not in any acute distress. Well developed, well nourished. HEENT: Pupils are round and equally reacting to light. EOMI. No scleral icterus. No conjunctival pallor. Normocephalic, atraumatic. No pharyngeal erythema. No thyromegaly. CARDIOVASCULAR: S1 and S2 present. No murmurs, rubs, or gallops. PULMONARY: Chest is clear to auscultation, no wheezing , no crackles. ABDOMEN: Soft, nontender, nondistended, normoactive bowel sounds. No palpable organomegaly. MUSCULOSKELETAL: No joint swelling or deformity. -EXTREMITIES: No cyanosis, clubbing, or pedal edema. Left leg cellulitis NEUROLOGICAL: Gross neurological examination did not reveal any focal deficits. SKIN: No rashes. no petechiae. - Labs CBC & Chem 7: 03/14/23 08:31 03/14/23 08:31 Labs: Abnormal Lab Results - Last 24 Hours (Table) 03/13/23 03/14/23 03/14/23 Range/Units 14:50 06:19 08:31 RBC (4.30-5.90) m/uL Hgb (13.0-17.5) gm/dL Hct (39.0-53.0) % RDW (11.5-15.5) % Plt Count (150-450) k/uL PT 37.8 H 35.0 H (10.0-12.5) sec INR 3.9 H 3.6 H (<1.2) Chloride (98-107) mmol/L BUN (9-20) mg/dL Creatinine (0.66-1.25) mg/dL Glucose (74-99) mg/dL POC Glucose (mg/dL) 116 H (70-110) mg/dL Calcium (8.4-10.2) mg/dL Total Protein (6.3-8.2) g/dL Albumin (3.5-5.0) g/dL 03/14/23 03/14/23 Range/Units 08:31 08:31 RBC 3.08 L (4.30-5.90) m/uL Hgb 8.5 L (13.0-17.5) gm/dL Hct 27.1 L (39.0-53.0) % RDW 15.7 H (11.5-15.5) % Plt Count 464 H (150-450) k/uL PT (10.0-12.5) sec INR (<1.2) Chloride 110 H (98-107) mmol/L BUN 8 L (9-20) mg/dL Creatinine 0.56 L (0.66-1.25) mg/dL Glucose 106 H (74-99) mg/dL POC Glucose (mg/dL) (70-110) mg/dL Calcium 7.7 L (8.4-10.2) mg/dL Total Protein 4.7 L (6.3-8.2) g/dL Albumin 1.9 L (3.5-5.0) g/dL Assessment and Plan Assessment: diabetic left heel ulcer stage 3 with surrounding cellulitis . Acute urinary tract infection. Urine culture: ESBL Klebsiella. Patient has indwelling Quezada catheter. UTI related to Quezada catheter Coagulopathy secondary to high INR Hypernatremia, improved Anemia, with worsening hemoglobin Paroxysmal atrial fibrillation on anticoagulation with Coumadin Acute kidney injury likely prerenal creatinine 1.68 and baseline 1.1 proved Generalized weakness and unable to ambulate without support. Hypoglycemia with uncontrolled diabetes type 2 insulin-dependent Coronary arteries with history of stent placement Hypertension Hyperlipidemia Dementia/cognitive impairment Stage II sacral decub ulcers. Plan: Encourage eating and drinking and consult speech evaluation Appendix PICC line placement, give vitamin K by mouth 1 on 03/14. Continue with invanz Infectious disease consult on the business case analyst INR and hemoglobin Continue with insulin 10 units in monitor glucose Labs and medication were reviewed.. Continue same treatment. Continue with symptomatic treatment. Resume home medication. Monitor labs and vitals. DVT and GI prophylaxis. Further recommendations as per clinical course of the patient DVT prophylaxis: on Coumadin GI Prophylaxis: Ppi PT/OT: Pending Prognosis is guarded
[2023-03-14] MEDS: WARFARIN 0.5 MG TAB PO ONE (14:46)
[2023-03-14 16:54] LABS: Glucose,Whole Blood 111 mg/dL (70-110)
[2023-03-14 21:08] LABS: Glucose,Whole Blood 123 mg/dL (70-110)
[2023-03-15 06:18] LABS: Glucose,Whole Blood 109 mg/dL (70-110)
[2023-03-15 06:37] LABS: INR 1.3 (<1.2); Prothrombin Time 13.3 sec (10.0-12.5)
--- NOTE | 2023-03-15 10:39 | P.OP ---
Date of Procedure: 03/15/23 Description of Procedure: Date of Procedure: 03/15/2023 Preoperative Diagnosis: Need for long-term IV antibiotic access. Postoperative Diagnosis: Same. Procedure(s) Performed: Ultrasound-guided cannulation left brachial vein. Insertion of peripherally inserted central catheter under fluoroscopic guidance. Anesthesia: local (1% Xylocaine.) Surgeon: Pilar Estimated Blood Loss (ml): 5 IV fluids (ml): 0 Urine output (ml): 0 Pathology: none sent Condition: stable Disposition: no change Indications for Procedure: Patient is a patient will require long-term IV antibiotics as an outpatient patient is offered a PICC line to allow for intravenous administration of antibiotics. Description of Procedure: Patient was brought to the special procedure suite. The left upper extremity sterilely prepped and draped in usual manner. Ultrasound was utilized to identify appropriate veins, there was no appropriate sized cephalic or basilic vein visualized therefore the brachial vein was identified, it was normally compressible free of visible thrombus. Permenant image was stored. 1% Xylocaine was utilized for local anesthesia tissues overlying the vein. Through this anesthetized area and with the aid of ultrasound a micropuncture needle was utilized to cannulate the vein. Once cannulated, Softip guidewire was advanced into the vein. The needle was withdrawn and a micropuncture sheath and dilator advanced over the guidewire. The guidewire was withdrawn and exchanged for the PICC guidewire and measured 40 cm to the cavoatrial junction. The catheter was cut to size and advanced into the cavoatrial junction without resistance. The sheath was peeled away. Blood was easily withdrawn through the catheter and the catheter was then flushed with heparinized saline solution and secured to the skin. Patient tolerated procedure well and was returned to their room in satisfactory and stable condition.
[2023-03-15 11:36] LABS: Glucose,Whole Blood 115 mg/dL (70-110)
--- NOTE | 2023-03-15 14:13 | P.PN ---
Subjective Progress Note Date: 03/14/23 Principal diagnosis: Reason for follow-up is left lower extremity cellulitis UTI and bacteremia Patient is a 78-year-old male with a past medical history significant for diabetes mellitus hypertension hyperlipidemia ND patient was brought into the hospital from the local group home concerning for elevated white count, patient did have a left hip ulceration noted to have a cellulitis to the left lower extremity also have a chronic indwelling Quezada catheter with a positive UA and blood cultures came back positive with gram-positive cocci. On today's evaluation that is 03/14/2023, the patient is afebrile, patient is on room air, the patient denies chest pain shortness of breath or cough, patient vomiting diarrhea or any other changes reported by the nursing staff. Patient did have white count of 6.2, creatinine 0.56 Objective - Vital Signs Vital signs: Vital Signs Temp 96.1 F L 03/14/23 08:00 Pulse 106 H 03/14/23 08:00 Resp 16 03/14/23 08:00 BP 137/63 03/14/23 08:00 Pulse Ox 98 03/14/23 02:00 FiO2 Intake & Output 03/13/23 03/14/23 03/14/23 18:59 06:59 18:59 Intake Total 150 300 70 Output Total 450 Balance -300 300 70 Weight 95.254 kg Intake: Intake, IV Titration 150 300 70 Amount Dextrose 5%-0.9% NaCl 1, 300 000 ml @ 50 mls/hr IV . Q20H [facility] Rx#:[id number] Ertapenem 1 gm In Sodium 50 50 Chloride 0.9% 50 ml @ 100 mls/hr IVPB DAILY [facility] Rx #:[id number] Potassium Chloride 20 meq 100 20 In Water For Injection 1 100ml.bag @ 50 mls/hr IVPB ONCE ONE Rx#: [id number] Output: Urine 450 Other: Voiding Method Indwelling Catheter Indwelling Catheter Indwelling Catheter - Exam GENERAL DESCRIPTION: An elderly male lying in bed in no distress RESPIRATORY SYSTEM: Unlabored breathing , decreased breath sounds at bases HEART: S1 S2 regular rate and rhythm , ABDOMEN: Soft , no tenderness EXTREMITIES: Right posterior heel with a stage II pressure ulcer minimal slough tissue no surrounding redness - Labs CBC & Chem 7: 03/14/23 08:31 03/14/23 08:31 Labs: Abnormal Lab Results - Last 24 Hours (Table) 03/13/23 03/14/23 03/14/23 Range/Units 14:50 06:19 08:31 RBC (4.30-5.90) m/uL Hgb (13.0-17.5) gm/dL Hct (39.0-53.0) % RDW (11.5-15.5) % Plt Count (150-450) k/uL PT 37.8 H 35.0 H (10.0-12.5) sec INR 3.9 H 3.6 H (<1.2) Chloride (98-107) mmol/L BUN (9-20) mg/dL Creatinine (0.66-1.25) mg/dL Glucose (74-99) mg/dL POC Glucose (mg/dL) 116 H (70-110) mg/dL Calcium (8.4-10.2) mg/dL Total Protein (6.3-8.2) g/dL Albumin (3.5-5.0) g/dL 03/14/23 03/14/23 Range/Units 08:31 08:31 RBC 3.08 L (4.30-5.90) m/uL Hgb 8.5 L (13.0-17.5) gm/dL Hct 27.1 L (39.0-53.0) % RDW 15.7 H (11.5-15.5) % Plt Count 464 H (150-450) k/uL PT (10.0-12.5) sec INR (<1.2) Chloride 110 H (98-107) mmol/L BUN 8 L (9-20) mg/dL Creatinine 0.56 L (0.66-1.25) mg/dL Glucose 106 H (74-99) mg/dL POC Glucose (mg/dL) (70-110) mg/dL Calcium 7.7 L (8.4-10.2) mg/dL Total Protein 4.7 L (6.3-8.2) g/dL Albumin 1.9 L (3.5-5.0) g/dL Assessment and Plan (1) Left leg cellulitis Current Visit: Yes Status: Acute Code(s): L03.116 - CELLULITIS OF LEFT LOWER LIMB SNOMED Code(s): 23173397248282713 (2) UTI (urinary tract infection) Current Visit: Yes Status: Acute Code(s): N39.0 - URINARY TRACT INFECTION, SITE NOT SPECIFIED SNOMED Code(s): 18796850 (3) Positive blood culture Current Visit: Yes Status: Acute Code(s): R78.81 - BACTEREMIA SNOMED Code(s): 436635399 (4) Leukocytosis Current Visit: Yes Status: Acute Code(s): D72.829 - ELEVATED WHITE BLOOD CELL COUNT, UNSPECIFIED SNOMED Code(s): 389051351 (5) Ulcer of left foot Current Visit: No Status: Acute Code(s): L97.529 - NON-PRESSURE CHRONIC ULCER OTH PRT LEFT FOOT W UNSP SEVERITY SNOMED Code(s): 574597094 Plan: 1patient presented to the hospital with elevated white count with initial concern for possible left heel ulcer and cellulitis however the patient also have a positive UA and there was concern for catheter associated UTI 2positive blood culture 2 out of 2 staph epi question of contamination, repeat blood culture has been negative, vancomycin has been discontinued 3-patient local wound care to the right posterior heel wound with the Santyl followed by moist dressing keep the area of the pressure 4-positive urine culture ESBL Klebsiella, ultrasound of the kidney bladder did not show any abscess or obstructive uropathy 5patient did have improvement in his mentation to continue Invanz 1 g daily and monitor clinical course closely Dictation was produced using [employer] dictation software. please excuse any grammatical, word or spelling errors. Time with Patient: Less than 30
--- NOTE | 2023-03-15 14:14 | P.PN ---
Subjective Progress Note Date: 03/15/23 Principal diagnosis: Reason for follow-up is left lower extremity cellulitis UTI and bacteremia Patient is a 78-year-old male with a past medical history significant for diabetes mellitus hypertension hyperlipidemia IN patient was brought into the hospital from the local half-way concerning for elevated white count, patient did have a left hip ulceration noted to have a cellulitis to the left lower extremity also have a chronic indwelling Quezada catheter with a positive UA and blood cultures came back positive with gram-positive cocci. On today's evaluation that is 03/15/2023, the patient remains to be afebrile, patient is currently breathing comfortably on room air, the patient is calmer and sleepy today per the at the bedside did not mention any issues no medical diarrhea has been reported. INR is 1.3 no CBC BMP was done today Objective - Vital Signs Vital signs: Vital Signs Temp 98.5 F 03/15/23 07:48 Pulse 105 H 03/15/23 07:48 Resp 19 03/15/23 07:48 BP 153/68 03/15/23 07:48 Pulse Ox 94 L 03/15/23 07:48 FiO2 Intake & Output 03/14/23 03/15/23 03/15/23 18:59 06:59 18:59 Intake Total 70 15 Output Total 800 Balance 70 -800 15 Weight 95.254 kg Intake: Intake, IV Titration 70 Amount Ertapenem 1 gm In Sodium 50 Chloride 0.9% 50 ml @ 100 mls/hr IVPB DAILY [facility] Rx #:[id number] Potassium Chloride 20 meq 20 In Water For Injection 1 100ml.bag @ 50 mls/hr IVPB ONCE ONE Rx#: [id number] Oral 15 Output: Urine 450 Stool 350 Other: Voiding Method Indwelling Catheter Indwelling Catheter Indwelling Catheter - Exam GENERAL DESCRIPTION: An elderly male lying in bed in no distress RESPIRATORY SYSTEM: Unlabored breathing , decreased breath sounds at bases HEART: S1 S2 regular rate and rhythm , ABDOMEN: Soft , no tenderness EXTREMITIES: Right posterior heel with a stage II pressure ulcer minimal slough tissue no surrounding redness - Labs CBC & Chem 7: 03/14/23 08:31 03/14/23 08:31 Labs: Abnormal Lab Results - Last 24 Hours (Table) 03/14/23 03/14/23 03/15/23 Range/Units 16:52 21:01 05:51 PT 13.3 H (10.0-12.5) sec INR 1.3 H (<1.2) POC Glucose (mg/dL) 111 H 123 H (70-110) mg/dL 03/15/23 Range/Units 11:35 PT (10.0-12.5) sec INR (<1.2) POC Glucose (mg/dL) 115 H (70-110) mg/dL Assessment and Plan (1) Left leg cellulitis Current Visit: Yes Status: Acute Code(s): L03.116 - CELLULITIS OF LEFT LOWER LIMB SNOMED Code(s): 93586456691854257 (2) UTI (urinary tract infection) Current Visit: Yes Status: Acute Code(s): N39.0 - URINARY TRACT INFECTION, SITE NOT SPECIFIED SNOMED Code(s): 30481706 (3) Positive blood culture Current Visit: Yes Status: Acute Code(s): R78.81 - BACTEREMIA SNOMED Code(s): 311872084 (4) Leukocytosis Current Visit: Yes Status: Acute Code(s): D72.829 - ELEVATED WHITE BLOOD CELL COUNT, UNSPECIFIED SNOMED Code(s): 360731439 (5) Ulcer of left foot Current Visit: No Status: Acute Code(s): L97.529 - NON-PRESSURE CHRONIC UL CER OTH PRT LEFT FOOT W UNSP SEVERITY SNOMED Code(s): 533987535 Plan: 1patient presented to the hospital with elevated white count with initial concern for possible left heel ulcer and cellulitis however the patient also have a positive UA and there was concern for catheter associated UTI 2positive blood culture 2 out of 2 staph epi question of contamination, repeat blood culture has been negative, vancomycin has been discontinued 3-patient local wound care to the right posterior heel wound with the Santyl followed by moist dressing keep the area of the pressure 4-positive urine culture ESBL Klebsiella, ultrasound of the kidney bladder did not show any abscess or obstructive uropathy 5patient did get a PICC line ordered by admitting team and so we will continue Invanz 1 g daily x 7 days on discharge Dictation was produced using [employer] dictation software. please excuse any grammatical, word or spelling errors. Time with Patient: Less than 30
[2023-03-15 17:06] LABS: Glucose,Whole Blood 96 mg/dL (70-110)
[2023-03-15] MEDS: WARFARIN 0.5 MG TAB PO ONE (17:10)
[2023-03-15] MEDS ORDERED: WARFARIN 3 MG TAB PO ONE (20:45)
--- NOTE | 2023-03-15 20:49 | P.PN ---
Subjective Patient is a 78-year-old male with a known history of coronary artery disease status post stent placement, atrial fibrillation on anticoagulation with Coumadin, hypertension, diabetes type 2 insulin-dependent, hyperlipidemia, COPD, gout and dementia who is [facility] to [facility] due to worsening leukocytosis. Patient discharged from hospital recently on 02/09/2023 after treatment for left heel diabetic foot ulcer and surrounding cellulitis. Patient does have indwelling Quezada catheter. Cognitive impairment and could not provide much history. Patient's daughter is at bedside. Otherwise patient does not have any fever or chills. Denies any abdominal pain. No nausea vomiting or diarrhea. Chest x-ray showed no acute cardiopulmonary process/disease. Ankle x-ray showed 7 mm ossific density at the distal Achilles tendon on with mild thickening. Consider chronic insertional tendinopathy. Sequela of old injury to the medial malleolus. No vaughn lytic destruction identified to clearly indicate osteomyelitis. Laboratory data showed WBC 22.0 hemoglobin 13.0 and platelets 284 Sodium 136 potassium 3.9 chloride 97 bicarb is 31 BUN 60 and creatinine 1.68 and blood sugar 197. Liver enzymes are not elevated. Albumin 3.4 Urinalysis showed large leukocyte esterase nitrite positive with elevated WBCs 13 and occasional bacteria. Influenza A, B, RSV and COVID-19 PCR not detected. Recent urine cultures from 02/25/2023 showed gram-negative bacilli. 03/01/2023 Patient is lying in the bed. Awake alert and oriented x 1-2. Mentation is at baseline. Currently patient is room air. No complaints of leg pain. Patient does have indwelling Quezada catheter. Blood cultures showed gram- positive cocci and patient was started on vancomycin. Urine culture is pending. Patient has been afebrile. Wound care is following Patient remains on broad-spectrum antibiotics. ID is on board. Laboratory data showed WBC trending down to 22.0 hemoglobin 13.0 and platelets 284. Sodium 136 potassium 3.9 chloride 97 bicarb is 31 BUN 16 creatinine 1.68 and blood sugar 197. Urinalysis showed large leukocyte esterase with elevated WBC count. Patient does have chronic indwelling Quezada catheter. 03/02/2023 Patient is currently resting in the bed. Awake alert and mentation is at baseline.. Currently on room air. The patient has been afebrile. No complaints of chest pain or shortness of breath. No nausea vomiting or diarrhea noted. Patient is being continued on vancomycin due to gram-positive bacteremia. Turnout to be coagulase-negative staph. Antibiotics otherwise changed to Unasyn as per ID recommendations. Repeat urinalysis was ordered. Initial urine culture is showing gram-negative bacilli. ID is on board. 03/03/2023 Patient is mildly confused especially about time, he knows he is in hospital in [place] and he couldn't tell the name of the president He is admitted with left leg cellulitis and currently is covered with IV vancomycin and Unasyn No wound culture There was suspicion of UTI and urine culture is growing gram-negative bacilli He has positive blood culture 2 suspicious for contamination versus infection. No heart murmur is heard No evidence of bleeding. However his INR still high 4.0 today, hemoglobin went down to 11.4 down to 9.8 Going to repeat hemoglobin tonight and do anemia workup. C2 this morning and Levemir 15 units lower to 12 units 03/04/2039 Patient today is confused, mildly agitated but followed commands, looks somewhat upset and sleepy from pain medication Spell been treated for his left leg cellulitis and acute urinary tract infection Urine culture growing ESBL Klebsiella and his Unasyn was switched to meropenem based on sensitivity and continued with IV vancomycin for his left leg cellulitis Hemoglobin is stable at 10, repeat INR is pending today. Leukocytosis is improving to 16.6. His last fever 100.3 today. Blood culture shows staph epidermidis Anemia workup as ordered and is pending Discussed with staff and bedside nurse 03/05/2023 Patient still very weak and lethargic, distal also encephalopathic kind confused, he does not answer a lot of question and follow-up, only at certain times indicate in his delirium on the top of his encephalopathy. Most likely related to his sepsis from his left leg cellulitis and Urinary tract infection related to Quezada catheter. Urine culture is growing ESBL Klebsiella, and he is currently covered with IV m eropenem, IV vancomycin was stopped. Patient probably will need IV antibiotics upon discharge we checked renal ultrasound today which was negative for obstructive uropathy given his significant infection Also patient INR is 3.5. Hemoglobin 8.5. 03/06/2023 Patient more confused and lethargic today, he does not answers my questions or follow commands, his mentation also reported to be worse by family doctor daughter today. His aneurysm was 3.5, repeat INR today is still pending, going to order CT of the brain to rule out hemorrhage. His been treated also with meropenem for his left leg cellulitis, with leg looks less red ,s till warm, mild swelling , no much tenderness also has been treated for UTI with Quezada catheter in place. Culture is growing ESBL Klebsiella. Also for bacteremia with possible contamination. Patient still not eaten much, glucose controlled after we lowered his Levemir 10 units. Also his hands well and therefore we going to switch his fluid #75 mL down to D5 normal saline at 50 mL/h with close monitoring Today I talked to the daughter Gabriella [phone] per her request, all her questions were answered and I discussed the case with her updating her about thi s problem and management plan and she verbalized understanding and acceptance 03/07/2023 Patient awake still slow to answer questions. He still looks somewhat confused and he got agitation at time at bedside and states that he has dementia more than 6 years which is slowly progressive and may be contributing to his slow recovery. He denies specific symptoms. No chest pain or dyspnea. He is afebrile and hemodynamically stable. Leukocytosis back to normal today 15.1 down to 9.8. Hemoglobin stable 9.6. INR 3.0 and patient is going to 1 mg of warfarin tonight. BNP is unremarkable. Patient remains on meropenem with the plan for outpatient IV antibiotic. His home dose of insulin 15 units lower to 10 units because patient was not eating much because of his infection and mental status. Glucose currently controlled 03/08/2023 Patient remains confused and agitated at times. It could be part of his worsening dementia as per at bedside for more than 5-6 years complicated by his infection and sepsis and metabolic encephalopathy. He is getting Seroquel and Haldol when necessary. He remains treated for UTI with ESBL Klebsiella with meropenem and lower extremity cellulitis and he is improving regarding this. Currently he is afebrile and leukocytosis back to normal at 9.9. Hemoglobin stable 8.4. INR 3.4 and 14 minutes and hold for now. His sodium come back elevated at 154 (result came back late) so started patient on D5W at 75 mm/h with close monitoring of solid 03/12/2023 Patient today was awake alert, calm but when I talked to him he agreed to answer me he told me he is in [facility], the date of the name of the president. He has inside after his illness with limitation. However his mentation almost close or back to baseline. at bedside. She agrees with his improvement. Patient is taking his oral medication. He remains on IV antibiotics and is proven Plan is to obtain PICC line tomorrow for IV antibiotics upon discharge per ID team recommendation. 03/13/2023 Patient mentation is stable, at baseline. With a bit more sleepy than usual. However easily arousable. Follow commands. No new complaints. Patient could not get the PICC line today for IV antibiotics upon discharge because of the INR jumped up 5.3 although he was receiving 1 mg of warfarin daily over the last 3 days. Vitamin K by mouth is ordered 1 however it was not given. Repeat INR back to a lower level at 3.9. No evidence of bleeding. We'll keep monitoring. Still pending PICC line placement Remains on IV InVance 03/14/2023 Patient awake and alert but staying in bed, looks lethargic. He denies specific complaint This pending PICC line placement which is on hold because of high INR 3.6 today. Going to give one-time dose of oral vitamin K 2.5 mg on hold Coumadin tonight, already discussed with staff. Patient will be discharged on IV antibiotics for his ESBL Klebsiella and left leg cellulitis which are improving. Quezada catheter in place Patient refused to take his oral medication yesterday and I talked to him and he to come Today he is still refuses his medication this morning. Also patient was not eating for the last 5-6 days. Patient denies specific complaints or choking. I talked to the patient and encouraged him to 8 with chest benefits explained for him and he agrees to start eating again. Patient already by psychiatrist and medications were adjusted previously. We'll ask for swallow evaluation. at bedside and perform patient declines PEG tube placement if needed. 03/15/2023 Patient is sleeping most of the day, he got Haysi 10 mg today. Today's INR 1.3 and PICC line could be placed. He remains on Invanz for now Patient is refusing pills and diet. He took his morning pills. We will try to give him Coumadin 6 mg tonight and check INR tomorrow We encourage patient to eat he agrees but then is not really eating This could be due to a lot of narcotics and sedatives therefore we stopped Haysi 10 mg, [place] gabapentin 200 mg 3 times a day down 200 mg 3 times a day. Also we lowered his BuSpar 50 mg down to 10 mg daily. 2: We kept the patient on Seroquel scheduled AND when necessary for possible agitation as we expected to be more agitated related to his dementia at bedside as I didn't her with the plan and she is agreeable Patient already seen by psychiatry during this admission Objective - Vital Signs Vital signs: Vital Signs Temp 98.5 F 03/15/23 07:48 Pulse 105 H 03/15/23 07:48 Resp 19 03/15/23 07:48 BP 153/68 03/15/23 07:48 Pulse Ox 94 L 03/15/23 07:48 FiO2 Intake & Output 03/14/23 03/15/23 03/15/23 18:59 06:59 18:59 Intake Total 70 15 Output Total 800 Balance 70 -800 15 Weight 95.254 kg Intake: Intake, IV Titration 70 Amount Ertapenem 1 gm In Sodium 50 Chloride 0.9% 50 ml @ 100 mls/hr IVPB DAILY [facility] Rx #:[id number] Potassium Chloride 20 meq 20 In Water For Injection 1 100ml.bag @ 50 mls/hr IVPB ONCE ONE Rx#: [id number] Oral 15 Output: Urine 450 Stool 350 Other: Voiding Method Indwelling Catheter Indwelling Catheter Indwelling Catheter - Exam -GENERAL: The patient is alert and oriented x3, not in any acute distress. Well developed, well nourished. HEENT: Pupils are round and equally reacting to light. EOMI. No scleral icterus. No conjunctival pallor. Normocephalic, atraumatic. No pharyngeal erythema. No thyromegaly. CARDIOVASCULAR: S1 and S2 present. No murmurs, rubs, or gallops. PULMONARY: Chest is clear to auscultation, no wheezing , no crackles. ABDOMEN: Soft, nontender, nondistended, normoactive bowel sounds. No palpable organomegaly. MUSCULOSKELETAL: No joint swelling or deformity. -EXTREMITIES: No cyanosis, clubbing, or pedal edema. Left leg cellulitis NEUROLOGICAL: Gross neurological examination did not reveal any focal deficits. SKIN: No rashes. no petechiae. - Labs CBC & Chem 7: 03/14/23 08:31 03/14/23 08:31 Labs: Abnormal Lab Results - Last 24 Hours (Table) 03/14/23 03/14/23 03/15/23 Range/Units 16:52 21:01 05:51 PT 13.3 H (10.0-12.5) sec INR 1.3 H (<1.2) POC Glucose (mg/dL) 111 H 123 H (70-110) mg/dL 03/15/23 Range/Units 11:35 PT (10.0-12.5) sec INR (<1.2) POC Glucose (mg/dL) 115 H (70-110) mg/dL Assessment and Plan Assessment: diabetic left heel ulcer stage 3 with surrounding cellulitis . Acute urinary tract infection. Urine culture: ESBL Klebsiella. Patient has indwelling Quezada catheter. UTI related to Quezada catheter Coagulopathy secondary to high INR Hypernatremia, improved Anemia, with worsening hemoglobin Paroxysmal atrial fibrillation on anticoagulation with Coumadin Acute kidney injury likely prerenal creatinine 1.68 and baseline 1.1 proved Generalized weakness and unable to ambulate without support. Hypoglycemia with uncontrolled diabetes type 2 insulin-dependent Coronary arteries with history of stent placement Hypertension Hyperlipidemia Dementia/cognitive impairment Stage II sacral decub ulcers. Plan: Encourage eating and drinking and consult speech evaluation Continue with invanz Patient still refuses eating and drinking and sleeping most of the time. DC Haysi, low dose of gabapentin and BuSpar. Continue with Seroquel Infectious disease consult on the casework specialist INR and hemoglobin Continue with insulin 10 units in monitor glucose Labs and medication were reviewed.. Continue same treatment. Continue with symptomatic treatment. Resume home medication. Monitor labs and vitals. DVT and GI prophylaxis. Further recommendations as per clinical course of the patient DVT prophylaxis: on Coumadin GI Prophylaxis: Ppi PT/OT: Pending Prognosis is guarded
[2023-03-15 21:09] LABS: Glucose,Whole Blood 106 mg/dL (70-110)
[2023-03-15] MEDS: WARFARIN 1 MG TAB PO ONE (22:02)
[2023-03-15] MEDS: GABAPENTIN 100 MG CAP PO SCH (22:03)
[2023-03-16 05:51] LABS: Glucose,Whole Blood 101 mg/dL (70-110)
[2023-03-16 07:09] LABS: INR 1.1 (<1.2); Prothrombin Time 12.1 sec (10.0-12.5)
[2023-03-16] MEDS: busPIRone HCl 10 MG TAB PO SCH (09:04)
--- NOTE | 2023-03-16 10:02 | P.PN ---
Subjective Patient is a 78-year-old male with a known history of coronary artery disease status post stent placement, atrial fibrillation on anticoagulation with Coumadin, hypertension, diabetes type 2 insulin-dependent, hyperlipidemia, COPD, gout and dementia who [facility] was sent to hospital due to worsening leukocytosis. Patient discharged from hospital recently on 02/09/2023 after treatment for left heel diabetic foot ulcer and surrounding cellulitis. Patient does have indwelling Quezada catheter. Cognitive impairment and could not provide much history. Patient's daughter is at bedside. Otherwise patient does not have any fever or chills. Denies any abdominal pain. No nausea vomiting or diarrhea. Chest x-ray showed no acute cardiopulmonary process/disease. Ankle x-ray showed 7 mm ossific density at the distal Achilles tendon on with mild thickening. Consider chronic insertional tendinopathy. Sequela of old injury to the medial malleolus. No vaughn lytic destruction identified to clearly indicate osteomyelitis. Laboratory data showed WBC 22.0 hemoglobin 13.0 and platelets 284 Sodium 136 potassium 3.9 chloride 97 bicarb is 31 BUN 60 and creatinine 1.68 and blood sugar 197. Liver enzymes are not elevated. Albumin 3.4 Urinalysis showed large leukocyte esterase nitrite positive with elevated WBCs 13 and occasional bacteria. Influenza A, B, RSV and COVID-19 PCR not detected. Recent urine cultures from 02/25/2023 showed gram-negative bacilli. 03/01/2023 Patient is lying in the bed. Awake alert and oriented x 1-2. Mentation is at baseline. Currently patient is room air. No complaints of leg pain. Patient does have indwelling Quezada catheter. Blood cultures showed gram- positive cocci and patient was started on vancomycin. Urine culture is pending. Patient has been afebrile. Wound care is following Patient remains on broad-spectrum antibiotics. ID is on board. Laboratory data showed WBC trending down to 22.0 hemoglobin 13.0 and platelets 284. Sodium 136 potassium 3.9 chloride 97 bicarb is 31 BUN 16 creatinine 1.68 and blood sugar 197. Urinalysis showed large leukocyte esterase with elevated WBC count. Patient does have chronic indwelling Quezada catheter. 03/02/2023 Patient is currently resting in the bed. Awake alert and mentation is at baseline.. Currently on room air. The patient has been afebrile. No complaints of chest pain or shortness of breath. No nausea vomiting or diarrhea noted. Patient is being continued on vancomycin due to gram-positive bacteremia. Turnout to be coagulase-negative staph. Antibiotics otherwise changed to Unasyn as per ID recommendations. Repeat urinalysis was ordered. Initial urine culture is showing gram-negative bacilli. ID is on board. 03/03/2023 Patient is mildly confused especially about time, he knows he is in hospital in [place] and he couldn't tell the name of the president He is admitted with left leg cellulitis and currently is covered with IV vancomycin and Unasyn No wound culture There was suspicion of UTI and urine culture is growing gram-negative bacilli He has positive blood culture 2 suspicious for contamination versus infection. No heart murmur is heard No evidence of bleeding. However his INR still high 4.0 today, hemoglobin went down to 11.4 down to 9.8 Going to repeat hemoglobin tonight and do anemia workup. C2 this morning and Levemir 15 units lower to 12 units 03/04/2039 Patient today is confused, mildly agitated but followed commands, looks somewhat upset and sleepy from pain medication Spell been treated for his left leg cellulitis and acute urinary tract infection Urine culture growing ESBL Klebsiella and his Unasyn was switched to meropenem based on sensitivity and continued with IV vancomycin for his left leg cellulitis Hemoglobin is stable at 10, repeat INR is pending today. Leukocytosis is improving to 16.6. His last fever 100.3 today. Blood culture shows staph epidermidis Anemia workup as ordered and is pending Discussed with staff and bedside nurse 03/05/2023 Patient still very weak and lethargic, distal also encephalopathic kind confused, he does not answer a lot of question and follow-up, only at certain times indicate in his delirium on the top of his encephalopathy. Most likely related to his sepsis from his left leg cellulitis and Urinary tract infection related to Quezada catheter. Urine culture is growing ESBL Klebsiella, and he is currently covered with IV m eropenem, IV vancomycin was stopped. Patient probably will need IV antibiotics upon discharge we checked renal ultrasound today which was negative for obstructive uropathy given his significant infection Also patient INR is 3.5. Hemoglobin 8.5. 03/06/2023 Patient more confused and lethargic today, he does not answers my questions or follow commands, his mentation also reported to be worse by family doctor daughter today. His aneurysm was 3.5, repeat INR today is still pending, going to order CT of the brain to rule out hemorrhage. His been treated also with meropenem for his left leg cellulitis, with leg looks less red ,s till warm, mild swelling , no much tenderness also has been treated for UTI with Quezada catheter in place. Culture is growing ESBL Klebsiella. Also for bacteremia with possible contamination. Patient still not eaten much, glucose controlled after we lowered his Levemir 10 units. Also his hands well and therefore we going to switch his fluid #75 mL down to D5 normal saline at 50 mL/h with close monitoring Today I talked to the daughter Gabriella [phone] per her request, all her questions were answered and I discussed the case with her updating her about thi s problem and management plan and she verbalized understanding and acceptance 03/07/2023 Patient awake still slow to answer questions. He still looks somewhat confused and he got agitation at time at bedside and states that he has dementia more than 6 years which is slowly progressive and may be contributing to his slow recovery. He denies specific symptoms. No chest pain or dyspnea. He is afebrile and hemodynamically stable. Leukocytosis back to normal today 15.1 down to 9.8. Hemoglobin stable 9.6. INR 3.0 and patient is going to 1 mg of warfarin tonight. BNP is unremarkable. Patient remains on meropenem with the plan for outpatient IV antibiotic. His home dose of insulin 15 units lower to 10 units because patient was not eating much because of his infection and mental status. Glucose currently controlled 03/08/2023 Patient remains confused and agitated at times. It could be part of his worsening dementia as per at bedside for more than 5-6 years complicated by his infection and sepsis and metabolic encephalopathy. He is getting Seroquel and Haldol when necessary. He remains treated for UTI with ESBL Klebsiella with meropenem and lower extremity cellulitis and he is improving regarding this. Currently he is afebrile and leukocytosis back to normal at 9.9. Hemoglobin stable 8.4. INR 3.4 and 14 minutes and hold for now. His sodium come back elevated at 154 (result came back late) so started patient on D5W at 75 mm/h with close monitoring of solid 03/12/2023 Patient today was awake alert, calm but when I talked to him he agreed to answer me he told me he is in [facility], the date of the name of the president. He has inside after his illness with limitation. However his mentation almost close or back to baseline. at bedside. She agrees with his improvement. Patient is taking his oral medication. He remains on IV antibiotics and is proven Plan is to obtain PICC line tomorrow for IV antibiotics upon discharge per ID team recommendation. 03/13/2023 Patient mentation is stable, at baseline. With a bit more sleepy than usual. However easily arousable. Follow commands. No new complaints. Patient could not get the PICC line today for IV antibiotics upon discharge because of the INR jumped up 5.3 although he was receiving 1 mg of warfarin daily over the last 3 days. Vitamin K by mouth is ordered 1 however it was not given. Repeat INR back to a lower level at 3.9. No evidence of bleeding. We'll keep monitoring. Still pending PICC line placement Remains on IV InVance 03/14/2023 Patient awake and alert but staying in bed, looks lethargic. He denies specific complaint This pending PICC line placement which is on hold because of high INR 3.6 today. Going to give one-time dose of oral vitamin K 2.5 mg on hold Coumadin tonight, already discussed with staff. Patient will be discharged on IV antibiotics for his ESBL Klebsiella and left leg cellulitis which are improving. Quezada catheter in place Patient refused to take his oral medication yesterday and I talked to him and he to come Today he is still refuses his medication this morning. Also patient was not eating for the last 5-6 days. Patient denies specific complaints or choking. I talked to the patient and encouraged him to 8 with chest benefits explained for him and he agrees to start eating again. Patient already by psychiatrist and medications were adjusted previously. We'll ask for swallow evaluation. at bedside and perform patient declines PEG tube placement if needed. 03/15/2023 Patient is sleeping most of the day, he got Kaumakani 10 mg today. Today's INR 1.3 and PICC line could be placed. He remains on Invanz for now Patient is refusing pills and diet. He took his morning pills. We will try to give him Coumadin 6 mg tonight and check INR tomorrow We encourage patient to eat he agrees but then is not really eating This could be due to a lot of narcotics and sedatives therefore we stopped Kaumakani 10 mg, [place] gabapentin 200 mg 3 times a day down 200 mg 3 times a day. Also we lowered his BuSpar 50 mg down to 10 mg daily. 2: We kept the patient on Seroquel scheduled AND when necessary for possible agitation as we expected to be more agitated related to his dementia at bedside as I didn't her with the plan and she is agreeable Patient already seen by psychiatry during this admission 03/16/2023 Patient remains very lethargic, awake alert but minimal interactive, he answers questions slowly and sometimes does not answer. His refusing his medication but sometimes taken after talking to him Patient has not been starts eating despite several attempts to convince him. We stopped many of the sedative yesterday like Kaumakani 10 and/or the dose of gabapentin and BuSpar but patient did not show improvement also is not taking a lot of his oral medication anyway We will do an MRI of the brain without contrast today Family has been refusing PEG tube before, PICC line in a Place which she gets a ntibiotic Invanz for now INR today is 1.1. He got Coumadin 1 mg last night continue with Coumadin p harmacy to dose check labs and ammonia level we'll continue monitoring Objective - Vital Signs Vital signs: Vital Signs Temp 98.8 F 03/16/23 07:46 Pulse 104 H 03/16/23 07:46 Resp 18 03/16/23 07:46 BP 172/68 03/16/23 07:46 Pulse Ox 94 L 03/16/23 07:46 FiO2 Intake & Output 03/15/23 03/16/23 03/16/23 18:59 06:59 18:59 Intake Total 15 540 Output Total 750 210 Balance -735 330 Weight 95.254 kg Intake: Oral 15 540 Output: Urine 750 210 Other: Voiding Method Indwelling Catheter Indwelling Catheter # Bowel Movements 1 - Exam -GENERAL: The patient is alert and oriented x3, not in any acute distress. Well developed, well nourished. HEENT: Pupils are round and equally reacting to light. EOMI. No scleral icterus. No conjunctival pallor. Normocephalic, atraumatic. No pharyngeal erythema. No thyromegaly. CARDIOVASCULAR: S1 and S2 present. No murmurs, rubs, or gallops. PULMONARY: Chest is clear to auscultation, no wheezing , no crackles. ABDOMEN: Soft, nontender, nondistended, normoactive bowel sounds. No palpable organomegaly. MUSCULOSKELETAL: No joint swelling or deformity. -EXTREMITIES: No cyanosis, clubbing, or pedal edema. Left leg cellulitis NEUROLOGICAL: Gross neurological examination did not reveal any focal deficits. SKIN: No rashes. no petechiae. - Labs CBC & Chem 7: 03/14/23 08:31 03/14/23 08:31 Labs: Abnormal Lab Results - Last 24 Hours (Table) 03/15/23 Range/Units 11:35 POC Glucose (mg/dL) 115 H (70-110) mg/dL Assessment and Plan Assessment: diabetic left heel ulcer stage 3 with surrounding cellulitis . Acute urinary tract infection. Urine culture: ESBL Klebsiella. Patient has indwelling Quezada catheter. UTI related to Quezada catheter Coagulopathy secondary to high INR Hypernatremia, improved Anemia, with worsening hemoglobin Paroxysmal atrial fibrillation on anticoagulation with Coumadin Acute kidney injury likely prerenal creatinine 1.68 and baseline 1.1 proved Generalized weakness and unable to ambulate without support. Hypoglycemia with uncontrolled diabetes type 2 insulin-dependent Coronary arteries with history of stent placement Hypertension Hyperlipidemia Dementia/cognitive impairment Stage II sacral decub ulcers. Plan: Order MRI of the brain without contrast Encourage eating and drinking and consult speech evaluation Continue with invanz Patient still refuses eating and drinking and sleeping most of the time. DC Kaumakani, low dose of gabapentin and BuSpar. 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 Continue same treatment. Continue with symptomatic treatment. Resume home medication. Monitor labs and vitals. DVT and GI prophylaxis. Further recommendations as per clinical course of the patient DVT prophylaxis: on Coumadin GI Prophylaxis: Ppi PT/OT: Pending Prognosis is guarded
[2023-03-16 10:51] LABS: Glucose,Whole Blood 96 mg/dL (70-110)
--- NOTE | 2023-03-16 13:05 | P.PN ---
Subjective Progress Note Date: 03/16/23 Principal diagnosis: Reason for follow-up is left lower extremity cellulitis UTI and bacteremia Patient is a 78-year-old male with a past medical history significant for diabetes mellitus hypertension hyperlipidemia [place] patient was [facility] the [facility] concerning for elevated white count, patient did have a left hip ulceration noted to have a cellulitis to the left lower extremity also have a chronic indwelling Quezada catheter with a positive UA and blood cultures came back positive with gram-positive cocci. On today's evaluation that is03/16/2023, the patient is afebrile, patient is on room air, the patient denies chest pain shortness of breath or cough, patient denies nausea no vomiting no abdominal pain and no diarrhea has been reported by the nursing staff apparently the patient have some mentation changes and is getting an MRI. The patient did have INR of 1.1 no CBC was done today Objective - Vital Signs Vital signs: Vital Signs Temp 98.8 F 03/16/23 07:46 Pulse 104 H 03/16/23 07:46 Resp 18 03/16/23 09:04 BP 172/68 03/16/23 07:46 Pulse Ox 94 L 03/16/23 07:46 FiO2 Intake & Output 03/15/23 03/16/23 03/16/23 18:59 06:59 18:59 Intake Total 15 540 Output Total 750 210 Balance -735 330 Weight 95.254 kg Intake: Oral 15 540 Output: Urine 750 210 Other: Voiding Method Indwelling Catheter Indwelling Catheter Indwelling Catheter # Bowel Movements 1 - Exam GENERAL DESCRIPTION: An elderly male lying in bed in no distress RESPIRATORY SYSTEM: Unlabored breathing , decreased breath sounds at bases HEART: S1 S2 regular rate and rhythm , ABDOMEN: Soft , no tenderness EXTREMITIES: Right posterior heel with a stage II pressure ulcer minimal slough tissue no surrounding redness - Labs CBC & Chem 7: 03/14/23 08:31 03/14/23 08:31 Assessment and Plan (1) Left leg cellulitis Current Visit: Yes Status: Acute Code(s): L03.116 - CELLULITIS OF LEFT LOWER LIMB SNOMED Code(s): 13967145891825258 (2) UTI (urinary tract infection) Current Visit: Yes Status: Acute Code(s): N39.0 - URINARY TRACT INFECTION, SITE NOT SPECIFIED SNOMED Code(s): 56834501 (3) Positive blood culture Current Visit: Yes Status: Acute Code(s): R78.81 - BACTEREMIA SNOMED Code(s): 373964691 (4) Leukocytosis Current Visit: Yes Status: Acute Code(s): D72.829 - ELEVATED WHITE BLOOD CELL COUNT, UNSPECIFIED SNOMED Code(s): 914855796 (5) Ulcer of left foot Current Visit: No Status: Acute Code(s): L97.529 - NON-PRESSURE CHRONIC ULCER OTH PRT LEFT FOOT W UNSP SEVERITY SNOMED Code(s): 055649523 Plan: 1patient presented to the hospital with elevated white count with initial concern for possible left heel ulcer and cellulitis however the patient also have a positive UA and there was concern for catheter associated UTI 2positive blood culture 2 out of 2 staph epi question of contamination, repeat blood culture has been negative, vancomycin has been discontinued 3-patient local wound care to the right posterior heel wound with the Santyl followed by moist dressing keep the area of the pressure 4-positive urine culture ESBL Klebsiella, ultrasound of the kidney bladder did not show any abscess or obstructive uropathy 5patient currently covered with Invanz 1 g daily waiting for improvement in his mentation and we will wait for the MRI of the brain to be completed Dictation was produced using [employer] dictation software. please excuse any grammatical, word or spelling errors. Time with Patient: Less than 30
[2023-03-16] MEDS: LORazepam 2 MG/ML INJ IV STA (14:30)
[2023-03-16 17:18] LABS: Glucose,Whole Blood 117 mg/dL (70-110)
--- NOTE | 2023-03-16 17:24 | MR ---
EXAMINATION TYPE: MR brain wo con DATE OF EXAM: 03/16/2023 COMPARISON: CT brain March 06, 2023 and older studies back through December 20, 2019 HISTORY: Change in mental status. TECHNIQUE: Multiplanar, multisequence imaging of the brain and brainstem is performed without IV cont rast. FINDINGS: Diffusion weighted images demonstrate no evidence of a recent infarct or other diffusion abnormality. There is mild to moderate ventricular and sulcal prominence with ventricular prominence slightly grea ter than degree of sulcal effacement. A normal pressure hydrocephalus is not excluded. No significant change from recent prior CT. Scattered foci of T2 hyperintensity are seen throughout the superficial , deep, periventricular white matter. Lesions are nonspecific in appearance and distribution. Approxi mate 40-50 scattered lesions are seen. Midline structures demonstrate normal morphology. The craniocervical junction appears within normal limits. Normal vascular flow voids are present. Bilateral aphakia is redemonstrated. The paranasal si nuses are grossly clear. IMPRESSION: 1. There is [id number] diffuse cerebral atrophy and fairly moderate chronic small v essel ischemic change. An underlying normal pressure hydrocephalus is not excluded. No significant ch latasha in ventricular size since 2019 however. No MRI evidence for recent infarct.
[2023-03-16] MEDS: WARFARIN 1 MG TAB PO ONE (18:12)
[2023-03-16 20:20] LABS: Glucose,Whole Blood 116 mg/dL (70-110)
[2023-03-17 06:07] LABS: Glucose,Whole Blood 62 mg/dL (70-110)
[2023-03-17] MEDS: DEXTROSE 50% SYRINGE 50 ML IVP PRN (06:13)
[2023-03-17 06:47] LABS: Glucose,Whole Blood 164 mg/dL (70-110)
[2023-03-17 08:16] LABS: INR 1.2 (<1.2); Prothrombin Time 12.6 sec (10.0-12.5)
[2023-03-17 11:23] LABS: Glucose,Whole Blood 94 mg/dL (70-110)
[2023-03-17 12:58] LABS: ABG Base Excess 4.2 mmol/L; ABG HCO3 28 mmol/L (21-25); ABG Oxygen Saturation 89.8 % (94-97); ABG PCO2 38 mmHg (35-45); ABG PH 7.48 (7.35-7.45); ABG TCO2 29 mmol/L (19-24); Allen Test Performed? Yes
--- NOTE | 2023-03-17 12:58 | P.PN ---
Subjective Progress Note Date: 03/17/23 Principal diagnosis: Reason for follow-up is left lower extremity cellulitis UTI and bacteremia Patient is a 78-year-old male with a past medical history significant for diabetes mellitus hypertension hyperlipidemia [place] patient was brought into the hospital from the local skilled nursing concerning for elevated white count, patient did have a left hip ulceration noted to have a cellulitis to the left lower extremity also have a chronic indwelling Quezada catheter with a positive UA and blood cultures came back positive with gram-positive cocci. On today's evaluation that is 03/17/2023, the patient is afebrile, patient is breathing comfortably on 2 L nasal cannula oxygen the patient is sleepy and did not answer any question patient has not received any pain medication or sedation per the nursing staff however mention he did took his medication this morning. No CBC was done today his INR is 1.2 MRI of the brain mild to moderate diffuse cerebral atrophy no significant change in the ventricular size since December 2019 Objective - Vital Signs Vital signs: Vital Signs Temp 99.4 F 03/17/23 07:31 Pulse 91 03/17/23 07:31 Resp 17 03/17/23 07:31 BP 149/66 03/17/23 07:31 Pulse Ox 98 03/17/23 07:31 FiO2 Intake & Output 03/16/23 03/17/23 03/17/23 18:59 06:59 18:59 Output Total 100 Balance -100 Output: Urine 100 Other: Voiding Method Indwelling Catheter Indwelling Catheter # Bowel Movements 1 - Exam GENERAL DESCRIPTION: An elderly male lying in bed in no distress RESPIRATORY SYSTEM: Unlabored breathing , decreased breath sounds at bases HEART: S1 S2 regular rate and rhythm , ABDOMEN: Soft , no tenderness EXTREMITIES: Right posterior heel with a stage II pressure ulcer minimal slough tissue no surrounding redness - Labs CBC & Chem 7: 03/14/23 08:31 03/14/23 08:31 Labs: Abnormal Lab Results - Last 24 Hours (Table) 03/16/23 03/16/23 03/17/23 Range/Units 17:17 20:18 06:05 PT (10.0-12.5) sec INR (<1.2) POC Glucose (mg/dL) 117 H 116 H 62 L (70-110) mg/dL 03/17/23 03/17/23 Range/Units 06:44 07:09 PT 12.6 H (10.0-12.5) sec INR 1.2 H (<1.2) POC Glucose (mg/dL) 164 H (70-110) mg/dL Assessment and Plan (1) Left leg cellulitis Current Visit: Yes Status: Acute Code(s): L03.116 - CELLULITIS OF LEFT LOWER LIMB SNOMED Code(s): 96155469371961840 (2) UTI (urinary tract infection) Current Visit: Yes Status: Acute Code(s): N39.0 - URINARY TRACT INFECTION, SITE NOT SPECIFIED SNOMED Code(s): 47543161 (3) Positive blood culture Current Visit: Yes Status: Acute Code(s): R78.81 - BACTEREMIA SNOMED Code(s): 948621603 (4) Leukocytosis Current Visit: Yes Status: Acute Code(s): D72.829 - ELEVATED WHITE BLOOD CELL COUNT, UNSPECIFIED SNOMED Code(s): 335646930 (5) Ulcer of left foot Current Visit: No Status: Acute Code(s): L97.529 - NON-PRESSURE CHRONIC ULCER OTH PRT LEFT FOOT W UNSP SEVERITY SNOMED Code(s): 444285548 Plan: 1patient presented to the hospital with elevated white count with initial concern for possible left heel ulcer and cellulitis however the patient also have a positive UA and there was concern for catheter associated UTI 2positive blood culture 2 out of 2 staph epi question of contamination, repeat blood culture has been negative, vancomycin has been discontinued 3-patient local wound care to the right posterior heel wound with the Santyl followed by moist dressing keep the area of the pressure 4-positive urine culture ESBL Klebsiella, ultrasound of the kidney bladder did not show any abscess or obstructive uropathy 5patient mentation remains to be an issue MRI did not show any acute stroke, patient to continue with Invanz 1 g daily waiting for improvement in his mentation at the bedside questions answered Dictation was produced using [employer] dictation software. please excuse any grammatical, word or spelling errors. Time with Patient: Less than 30
[2023-03-17 13:03] LABS: ABG PO2 57 mmHg (83-108)
[2023-03-17] MEDS: methylPREDNISolone SOD SUCCI 40 MG/ML 1 ML VIAL IV SCH (16:35)
[2023-03-17 16:36] LABS: Glucose,Whole Blood 114 mg/dL (70-110)
--- NOTE | 2023-03-17 18:16 | P.PN ---
Subjective Patient is a 78-year-old male with a known history of coronary artery disease status post stent placement, atrial fibrillation on anticoagulation with Coumadin, hypertension, diabetes type 2 insulin-dependent, hyperlipidemia, COPD, gout and dementia who is currently at senior living was sent to hospital due to worsening leukocytosis. Patient discharged from hospital recently on 02/09/2023 after treatment for left heel diabetic foot ulcer and surrounding cellulitis. Patient does have indwelling Quezada catheter. Cognitive impairment and could not provide much history. Patient's daughter is at bedside. Otherwise patient does not have any fever or chills. Denies any abdominal pain. No nausea vomiting or diarrhea. Chest x-ray showed no acute cardiopulmonary process/disease. Ankle x-ray showed 7 mm ossific density at the distal Achilles tendon on with mild thickening. Consider chronic insertional tendinopathy. Sequela of old injury to the medial malleolus. No vaughn lytic destruction identified to clearly indicate osteomyelitis. Laboratory data showed WBC 22.0 hemoglobin 13.0 and platelets 284 Sodium 136 potassium 3.9 chloride 97 bicarb is 31 BUN 60 and creatinine 1.68 and blood sugar 197. Liver enzymes are not elevated. Albumin 3.4 Urinalysis showed large leukocyte esterase nitrite positive with elevated WBCs 13 and occasional bacteria. Influenza A, B, RSV and COVID-19 PCR not detected. Recent urine cultures from 02/25/2023 showed gram-negative bacilli. 03/01/2023 Patient is lying in the bed. Awake alert and oriented x 1-2. Mentation is at baseline. Currently patient is room air. No complaints of leg pain. Patient does have indwelling Quezada catheter. Blood cultures showed gram- positive cocci and patient was started on vancomycin. Urine culture is pending. Patient has been afebrile. Wound care is following Patient remains on broad-spectrum antibiotics. ID is on board. Laboratory data showed WBC trending down to 22.0 hemoglobin 13.0 and platelets 284. Sodium 136 potassium 3.9 chloride 97 bicarb is 31 BUN 16 creatinine 1.68 and blood sugar 197. Urinalysis showed large leukocyte esterase with elevated WBC count. Patient does have chronic indwelling Quezada catheter. 03/02/2023 Patient is currently resting in the bed. Awake alert and mentation is at baseline.. Currently on room air. The patient has been afebrile. No complaints of chest pain or shortness of breath. No nausea vomiting or diarrhea noted. Patient is being continued on vancomycin due to gram-positive bacteremia. Turnout to be coagulase-negative staph. Antibiotics otherwise changed to Unasyn as per ID recommendations. Repeat urinalysis was ordered. Initial urine culture is showing gram-negative bacilli. ID is on board. 03/03/2023 Patient is mildly confused especially about time, he knows he is in hospital in [place] and he couldn't tell the name of the president He is admitted with left leg cellulitis and currently is covered with IV vancomycin and Unasyn No wound culture There was suspicion of UTI and urine culture is growing gram-negative bacilli He has positive blood culture 2 suspicious for contamination versus infection. No heart murmur is heard No evidence of bleeding. However his INR still high 4.0 today, hemoglobin went down to 11.4 down to 9.8 Going to repeat hemoglobin tonight and do anemia workup. C2 this morning and Levemir 15 units lower to 12 units 03/04/2039 Patient today is confused, mildly agitated but followed commands, looks somewhat upset and sleepy from pain medication Spell been treated for his left leg cellulitis and acute urinary tract infection Urine culture growing ESBL Klebsiella and his Unasyn was switched to meropenem based on sensitivity and continued with IV vancomycin for his left leg cellulitis Hemoglobin is stable at 10, repeat INR is pending today. Leukocytosis is improving to 16.6. His last fever 100.3 today. Blood culture shows staph epidermidis Anemia workup as ordered and is pending Discussed with staff and bedside nurse 03/05/2023 Patient still very weak and lethargic, distal also encephalopathic kind confused, he does not answer a lot of question and follow-up, only at certain times indicate in his delirium on the top of his encephalopathy. Most likely related to his sepsis from his left leg cellulitis and Urinary tract infection related to Quezada catheter. Urine culture is growing ESBL Klebsiella, and he is currently covered with IV m eropenem, IV vancomycin was stopped. Patient probably will need IV antibiotics upon discharge we checked renal ultrasound today which was negative for obstructive uropathy given his significant infection Also patient INR is 3.5. Hemoglobin 8.5. 03/06/2023 Patient more confused and lethargic today, he does not answers my questions or follow commands, his mentation also reported to be worse by family doctor daughter today. His aneurysm was 3.5, repeat INR today is still pending, going to order CT of the brain to rule out hemorrhage. His been treated also with meropenem for his left leg cellulitis, with leg looks less red ,s till warm, mild swelling , no much tenderness also has been treated for UTI with Quezada catheter in place. Culture is growing ESBL Klebsiella. Also for bacteremia with possible contamination. Patient still not eaten much, glucose controlled after we lowered his Levemir 10 units. Also his hands well and therefore we going to switch his fluid #75 mL down to D5 normal saline at 50 mL/h with close monitoring Today I talked to the daughter Gabriella [phone] per her request, all her questions were answered and I discussed the case with her updating her about thi s problem and management plan and she verbalized understanding and acceptance 03/07/2023 Patient awake still slow to answer questions. He still looks somewhat confused and he got agitation at time at bedside and states that he has dementia more than 6 years which is slowly progressive and may be contributing to his slow recovery. He denies specific symptoms. No chest pain or dyspnea. He is afebrile and hemodynamically stable. Leukocytosis back to normal today 15.1 down to 9.8. Hemoglobin stable 9.6. INR 3.0 and patient is going to 1 mg of warfarin tonight. BNP is unremarkable. Patient remains on meropenem with the plan for outpatient IV antibiotic. His home dose of insulin 15 units lower to 10 units because patient was not eating much because of his infection and mental status. Glucose currently controlled 03/08/2023 Patient remains confused and agitated at times. It could be part of his worsening dementia as per at bedside for more than 5-6 years complicated by his infection and sepsis and metabolic encephalopathy. He is getting Seroquel and Haldol when necessary. He remains treated for UTI with ESBL Klebsiella with meropenem and lower extremity cellulitis and he is improving regarding this. Currently he is afebrile and leukocytosis back to normal at 9.9. Hemoglobin stable 8.4. INR 3.4 and 14 minutes and hold for now. His sodium come back elevated at 154 (result came back late) so started patient on D5W at 75 mm/h with close monitoring of solid 03/12/2023 Patient today was awake alert, calm but when I talked to him he agreed to answer me he told me he is in [facility], the date of the name of the president. He has inside after his illness with limitation. However his mentation almost close or back to baseline. at bedside. She agrees with his improvement. Patient is taking his oral medication. He remains on IV antibiotics and is proven Plan is to obtain PICC line tomorrow for IV antibiotics upon discharge per ID team recommendation. 03/13/2023 Patient mentation is stable, at baseline. With a bit more sleepy than usual. However easily arousable. Follow commands. No new complaints. Patient could not get the PICC line today for IV antibiotics upon discharge because of the INR jumped up 5.3 although he was receiving 1 mg of warfarin daily over the last 3 days. Vitamin K by mouth is ordered 1 however it was not given. Repeat INR back to a lower level at 3.9. No evidence of bleeding. We'll keep monitoring. Still pending PICC line placement Remains on IV InVance 03/14/2023 Patient awake and alert but staying in bed, looks lethargic. He denies specific complaint This pending PICC line placement which is on hold because of high INR 3.6 today. Going to give one-time dose of oral vitamin K 2.5 mg on hold Coumadin tonight, already discussed with staff. Patient will be discharged on IV antibiotics for his ESBL Klebsiella and left leg cellulitis which are improving. Quezada catheter in place Patient refused to take his oral medication yesterday and I talked to him and he to come Today he is still refuses his medication this morning. Also patient was not eating for the last 5-6 days. Patient denies specific complaints or choking. I talked to the patient and encouraged him to 8 with chest benefits explained for him and he agrees to start eating again. Patient already by psychiatrist and medications were adjusted previously. We'll ask for swallow evaluation. at bedside and perform patient declines PEG tube placement if needed. 03/15/2023 Patient is sleeping most of the day, he got [place] 10 mg today. Today's INR 1.3 and PICC line could be placed. He remains on Invanz for now Patient is refusing pills and diet. He took his morning pills. We will try to give him Coumadin 6 mg tonight and check INR tomorrow We encourage patient to eat he agrees but then is not really eating This could be due to a lot of narcotics and sedatives therefore we stopped [place] 10 mg, [place] gabapentin 200 mg 3 times a day down 200 mg 3 times a day. Also we lowered his BuSpar 50 mg down to 10 mg daily. 2: We kept the patient on Seroquel scheduled AND when necessary for possible agitation as we expected to be more agitated related to his dementia at bedside as I didn't her with the plan and she is agreeable Patient already seen by psychiatry during this admission 03/16/2023 Patient remains very lethargic, awake alert but minimal interactive, he answers questions slowly and sometimes does not answer. His refusing his medication but sometimes taken after talking to him Patient has not been starts eating despite several attempts to convince him. We stopped many of the sedative yesterday like [place] 10 and/or the dose of gabapentin and BuSpar but patient did not show improvement also is not taking a lot of his oral medication anyway We will do an MRI of the brain without contrast today Family has been refusing PEG tube before, PICC line in a Place which she gets a ntibiotic Invanz for now INR today is 1.1. He got Coumadin 1 mg last night continue with Coumadin p harmacy to dose check labs and ammonia level we'll continue monitoring 03/17/2023 Patient today was still confused her to awaken after he received Ativan yesterday. Also he was not is mildly tachypneic, ABG showing hypoxia. He was placed on oxygen treatment and BiPAP for short time. Repeat chest x-ray is ordered He remains on Invanz Patient also has PICC line, dietary consult was placed for possible TPN Also we will consult neurology service today for possible EEG and no improvement in his mentation however patient has no seizure-like activity. He received Coumadin and his INR started going up 1.2 today. After it was held for PICC line placement Family at bedside and discussed management plan with her and she is agreeable Objective - Vital Signs Vital signs: Vital Signs Temp 99.4 F 03/17/23 07:31 Pulse 91 03/17/23 07:31 Resp 17 03/17/23 07:31 BP 149/66 03/17/23 07:31 Pulse Ox 98 03/17/23 07:31 FiO2 Intake & Output 03/16/23 03/17/23 03/17/23 18:59 06:59 18:59 Output Total 100 Balance -100 Output: Urine 100 Other: Voiding Method Indwelling Catheter Indwelling Catheter # Bowel Movements 1 - Exam -GENERAL: The patient is alert and oriented x3, not in any acute distress. Well developed, well nourished. HEENT: Pupils are round and equally reacting to light. EOMI. No scleral icterus. No conjunctival pallor. Normocephalic, atraumatic. No pharyngeal erythema. No thyromegaly. CARDIOVASCULAR: S1 and S2 present. No murmurs, rubs, or gallops. PULMONARY: Chest is clear to auscultation, no wheezing , no crackles. ABDOMEN: Soft, nontender, nondistended, normoactive bowel sounds. No palpable o rganomegaly. MUSCULOSKELETAL: No joint swelling or deformity. -EXTREMITIES: No cyanosis, clubbing, or pedal edema. Left leg cellulitis NEUROLOGICAL: Gross neurological examination did not reveal any focal deficits. SKIN: No rashes. no petechiae. - Labs CBC & Chem 7: 03/14/23 08:31 03/14/23 08:31 Labs: Abnormal Lab Results - Last 24 Hours (Table) 03/16/23 03/16/23 03/17/23 Range/Units 17:17 20:18 06:05 PT (10.0-12.5) sec INR (<1.2) ABG pH (7.35-7.45) ABG pO2 (83-108) mmHg ABG HCO3 (21-25) mmol/L ABG Total CO2 (19-24) mmol/L ABG O2 Saturation (94-97) % POC Glucose (mg/dL) 117 H 116 H 62 L (70-110) mg/dL 03/17/23 03/17/23 03/17/23 Range/Units 06:44 07:09 12:57 PT 12.6 H (10.0-12.5) sec INR 1.2 H (<1.2) ABG pH 7.48 H (7.35-7.45) ABG pO2 57 L* (83-108) mmHg ABG HCO3 28 H (21-25) mmol/L ABG Total CO2 29 H (19-24) mmol/L ABG O2 Saturation 89.8 L (94-97) % POC Glucose (mg/dL) 164 H (70-110) mg/dL Assessment and Plan Assessment: Acute hypoxic respiratory failure diabetic left heel ulcer stage 3 with surrounding cellulitis . Acute urinary tract infection. Urine culture: ESBL Klebsiella. Patient has indwelling Quezada catheter. UTI related to Quezada catheter Coagulopathy secondary to high INR Hypernatremia, improved Anemia, with worsening hemoglobin Paroxysmal atrial fibrillation on anticoagulation with Coumadin Acute kidney injury likely prerenal creatinine 1.68 and baseline 1.1 proved Generalized weakness and unable to ambulate without support. Hypoglycemia with uncontrolled diabetes type 2 insulin-dependent Coronary arteries with history of stent placement Hypertension Hyperlipidemia Dementia/cognitive impairment Stage II sacral decub ulcers. Plan: Encourage eating and drinking and consult speech evaluation I consulted neurologist to rule out seizure repeat chest x-ray a Continue with invanz Patient still refuses eating and drinking and sleeping most of the time. DC [place], low dose of gabapentin and BuSpar. Continue with Seroquel Infectious disease consult on the case resolution specialist INR and hemoglobin dietary consult for possible TPN Continue with insulin 10 units in monitor glucose Labs and medication were reviewed.. Continue same treatment. Continue with symptomatic treatment. Resume home medication. Monitor labs and vitals. DVT and GI prophylaxis. Further recommendations as per clinical course of the patient DVT prophylaxis: on Coumadin GI Prophylaxis: Ppi PT/OT: Pending Prognosis is guarded. Patient with multiple complications and hard to respond to therapy. If patient continued to deteriorate NO improvement a may consider more palliative approach.
--- NOTE | 2023-03-17 18:42 | XR ---
EXAMINATION TYPE: XR chest 1V DATE OF EXAM: 03/17/2023 6:19 PM CLINICAL INDICATION:Male, 78 years old with history of sob; [facility] COMPARISON: None TECHNIQUE: XR chest 1V Portable AP radiograph of the chest.. FINDINGS: Lines/Tubes/Devices: Left arm PICC with its tip over the mid SVC. Heart/mediastinum: Heart size is normal. Pericardial fat seems mildly prominent. Tortuous aorta with atherosclerotic calcification. Slight tracheal bowing towards the right at the level of the aortic a rch. Pulmonary vascularity: Not increased, Lungs/Pleura: There is no evidence of pleural effusion, focal consolidation, or pneumothorax. Musculoskeletal: No acute osseous abnormality demonstrated in the limits of the exam. Degenerative c hanges of the spine and shoulders. Other findings: None. IMPRESSION: No acute cardiopulmonary abnormality. Left arm PICC in place.
[2023-03-17 20:01] LABS: Glucose,Whole Blood 115 mg/dL (70-110)
[2023-03-17] MEDS: WARFARIN 1 MG TAB PO ONE (20:33)
[2023-03-18 06:02] LABS: Glucose,Whole Blood 166 mg/dL (70-110)
[2023-03-18 07:47] LABS: Basophils % (A) 0 %; Eosinophils % (A) 0 %; HCT 27.6 % (39.0-53.0); HGB 8.6 gm/dL (13.0-17.5); Hypochromasia Moderate; Lymphocytes # (A) 0.9 k/uL (1.0-4.8); Lymphocytes % (A) 11 %; MCH 27.2 pg (25.0-35.0); MCHC 31.2 g/dL (31.0-37.0); MCV 87.2 fL (80.0-100.0); Mean Platelet Volume 8.4; Monocytes # (A) 0.3 k/uL (0-1.0); Monocytes % (A) 3 %; Neutrophils % (A) 85 %; Platelet Count 402 k/uL (150-450); RBC 3.17 m/uL (4.30-5.90); RDW 15.8 % (11.5-15.5); WBC 8.2 k/uL (3.8-10.6)
[2023-03-18 07:51] LABS: INR 1.2 (<1.2); Prothrombin Time 12.7 sec (10.0-12.5)
[2023-03-18 08:03] LABS: African American GFR (CKD) >90 (>60 ml/min/1.73 sqM); Anion Gap 5 mmol/L; Blood Urea Nitrogen 15 mg/dL (9-20); Calcium 7.9 mg/dL (8.4-10.2); Carbon Dioxide 25 mmol/L (22-30); Chloride 112 mmol/L (98-107); Glucose 157 mg/dL (74-99); Non-African American GFR(CKD) 89 (>60 ml/min/1.73 sqM); Potassium 3.7 mmol/L (3.5-5.1); Sodium 142 mmol/L (137-145)
[2023-03-18 11:34] LABS: Glucose,Whole Blood 166 mg/dL (70-110)
--- NOTE | 2023-03-18 12:59 | P.PN ---
Subjective Progress Note Date: 03/18/23 Principal diagnosis: Reason for follow-up is left lower extremity cellulitis UTI and bacteremia Patient is a 78-year-old male with a past medical history significant for diabetes mellitus hypertension hyperlipidemia [place] patient was brought into the hospital from the local senior care concerning for elevated white count, patient did have a left hip ulceration noted to have a cellulitis to the left lower extremity also have a chronic indwelling Quezada catheter with a positive UA and blood cultures came back positive with gram-positive cocci. On today's evaluation that is 03/18/2023,the patient remains to be afebrile, patient is on 4 L nasal cannula supplemental oxygen patient is [place] and did not answer any question no vomiting diarrhea or any other changes reported by the at the bedside. Patient white count of 8.2, creatinine 0.74 chest x-ray no acute cardiopulmonary abnormality Objective - Vital Signs Vital signs: Vital Signs Temp 98.4 F 03/18/23 08:00 Pulse 106 H 03/18/23 08:00 Resp 18 03/18/23 08:00 BP 136/73 03/18/23 08:00 Pulse Ox 100 03/18/23 08:00 FiO2 40 03/17/23 16:11 Intake & Output 03/17/23 03/18/23 03/18/23 18:59 06:59 18:59 Output Total 350 400 Balance -350 -400 Output: Urine 350 400 Other: Voiding Method Indwelling Catheter # Bowel Movements 1 - Exam GENERAL DESCRIPTION: An elderly male lying in bed in no distress RESPIRATORY SYSTEM: Unlabored breathing , decreased breath sounds at bases HEART: S1 S2 regular rate and rhythm , ABDOMEN: Soft , no tenderness EXTREMITIES: Right posterior heel with a stage II pressure ulcer minimal slough tissue no surrounding redness - Labs CBC & Chem 7: 03/18/23 07:35 03/18/23 07:35 Labs: Abnormal Lab Results - Last 24 Hours (Table) 03/17/23 03/17/23 03/17/23 Range/Units 12:57 16:34 19:42 RBC (4.30-5.90) m/uL Hgb (13.0-17.5) gm/dL Hct (39.0-53.0) % RDW (11.5-15.5) % Lymphocytes # (1.0-4.8) k/uL PT (10.0-12.5) sec INR (<1.2) ABG pH 7.48 H (7.35-7.45) ABG pO2 57 L* (83-108) mmHg ABG HCO3 28 H (21-25) mmol/L ABG Total CO2 29 H (19-24) mmol/L ABG O2 Saturation 89.8 L (94-97) % Chloride (98-107) mmol/L Glucose (74-99) mg/dL POC Glucose (mg/dL) 114 H 115 H (70-110) mg/dL Calcium (8.4-10.2) mg/dL 03/18/23 03/18/23 03/18/23 Range/Units 05:57 07:35 07:35 RBC 3.17 L (4.30-5.90) m/uL Hgb 8.6 L (13.0-17.5) gm/dL Hct 27.6 L (39.0-53.0) % RDW 15.8 H (11.5-15.5) % Lymphocytes # 0.9 L (1.0-4.8) k/uL PT 12.7 H (10.0-12.5) sec INR 1.2 H (<1.2) ABG pH (7.35-7.45) ABG pO2 (83-108) mmHg ABG HCO3 (21-25) mmol/L ABG Total CO2 (19-24) mmol/L ABG O2 Saturation (94-97) % Chloride (98-107) mmol/L Glucose (74-99) mg/dL POC Glucose (mg/dL) 166 H (70-110) mg/dL Calcium (8.4-10.2) mg/dL 03/18/23 03/18/23 Range/Units 07:35 11:33 RBC (4.30-5.90) m/uL Hgb (13.0-17.5) gm/dL Hct (39.0-53.0) % RDW (11.5-15.5) % Lymphocytes # (1.0-4.8) k/uL PT (10.0-12.5) sec INR (<1.2) ABG pH (7.35-7.45) ABG pO2 (83-108) mmHg ABG HCO3 (21-25) mmol/L ABG Total CO2 (19-24) mmol/L ABG O2 Saturation (94-97) % Chloride 112 H (98-107) mmol/L Glucose 157 H (74-99) mg/dL POC Glucose (mg/dL) 166 H (70-110) mg/dL Calcium 7.9 L (8.4-10.2) mg/dL Assessment and Plan (1) Left leg cellulitis Current Visit: Yes Status: Acute Code(s): L03.116 - CELLULITIS OF LEFT LOWER LIMB SNOMED Code(s): 48120720948300264 (2) UTI (urinary tract infection) Current Visit: Yes Status: Acute Code(s): N39.0 - URINARY TRACT INFECTION, SITE NOT SPECIFIED SNOMED Code(s): 27340601 (3) Positive blood culture Current Visit: Yes Status: Acute Code(s): R78.81 - BACTEREMIA SNOMED Code(s): 259049973 (4) Leukocytosis Current Visit: Yes Status: Acute Code(s): D72.829 - ELEVATED WHITE BLOOD CELL COUNT, UNSPECIFIED SNOMED Code(s): 570336662 (5) Ulcer of left foot Current Visit: No Status: Acute Code(s): L97.529 - NON-PRESSURE CHRONIC ULCER OTH PRT LEFT FOOT W UNSP SEVERITY SNOMED Code(s): 129914584 Plan: 1patient presented to the hospital with elevated white count with initial concern for possible left heel ulcer and cellulitis however the patient also have a positive UA and there was concern for catheter associated UTI 2positive blood culture 2 out of 2 staph epi question of contamination, repeat blood culture has been negative, vancomycin has been discontinued 3-patient local wound care to the right posterior heel wound with the Santyl followed by moist dressing keep the area of the pressure 4-positive urine culture ESBL Klebsiella, ultrasound of the kidney bladder did not show any abscess or obstructive uropathy 5patient mentation remains to be an issue MRI did not show any acute stroke, 6-patient received about 2 weeks of antibiotic therapy for his underlying ESBL Klebsiella UTI in the form of meropenem followed by Invanz and should be more than enough consider discontinuation of Invanz at the bedside questions answered Dictation was produced using [employer] software. please excuse any grammatical, word or spelling errors. Time with Patient: Less than 30
--- NOTE | 2023-03-18 14:40 | P.PN ---
Subjective Patient is a 78-year-old male with a known history of coronary artery disease status post stent placement, atrial fibrillation on anticoagulation with Coumadin, hypertension, diabetes type 2 insulin-dependent, hyperlipidemia, COPD, gout and dementia who is currently at shelter was sent to hospital due to worsening leukocytosis. Patient discharged from hospital recently on 02/09/2023 after treatment for left heel diabetic foot ulcer and surrounding cellulitis. Patient does have indwelling Quezada catheter. Cognitive impairment and could not provide much history. Patient's daughter is at bedside. Otherwise patient does not have any fever or chills. Denies any abdominal pain. No nausea vomiting or diarrhea. Chest x-ray showed no acute cardiopulmonary process/disease. Ankle x-ray showed 7 mm ossific density at the distal Achilles tendon on with mild thickening. Consider chronic insertional tendinopathy. Sequela of old injury to the medial malleolus. No vaughn lytic destruction identified to clearly indicate osteomyelitis. Laboratory data showed WBC 22.0 hemoglobin 13.0 and platelets 284 Sodium 136 potassium 3.9 chloride 97 bicarb is 31 BUN 60 and creatinine 1.68 and blood sugar 197. Liver enzymes are not elevated. Albumin 3.4 Urinalysis showed large leukocyte esterase nitrite positive with elevated WBCs 13 and occasional bacteria. Influenza A, B, RSV and COVID-19 PCR not detected. Recent urine cultures from 02/25/2023 showed gram-negative bacilli. 03/01/2023 Patient is lying in the bed. Awake alert and oriented x 1-2. Mentation is at baseline. Currently patient is room air. No complaints of leg pain. Patient does have indwelling Quezada catheter. Blood cultures showed gram- positive cocci and patient was started on vancomycin. Urine culture is pending. Patient has been afebrile. Wound care is following Patient remains on broad-spectrum antibiotics. ID is on board. Laboratory data showed WBC trending down to 22.0 hemoglobin 13.0 and platelets 284. Sodium 136 potassium 3.9 chloride 97 bicarb is 31 BUN 16 creatinine 1.68 and blood sugar 197. Urinalysis showed large leukocyte esterase with elevated WBC count. Patient does have chronic indwelling Quezada catheter. 03/02/2023 Patient is currently resting in the bed. Awake alert and mentation is at baseline.. Currently on room air. The patient has been afebrile. No complaints of chest pain or shortness of breath. No nausea vomiting or diarrhea noted. Patient is being continued on vancomycin due to gram-positive bacteremia. Turnout to be coagulase-negative staph. Antibiotics otherwise changed to Unasyn as per ID recommendations. Repeat urinalysis was ordered. Initial urine culture is showing gram-negative bacilli. ID is on board. 03/03/2023 Patient is mildly confused especially about time, he knows he is in hospital in [place] and he couldn't tell the name of the president He is admitted with left leg cellulitis and currently is covered with IV vancomycin and Unasyn No wound culture There was suspicion of UTI and urine culture is growing gram-negative bacilli He has positive blood culture 2 suspicious for contamination versus infection. No heart murmur is heard No evidence of bleeding. However his INR still high 4.0 today, hemoglobin went down to 11.4 down to 9.8 Going to repeat hemoglobin tonight and do anemia workup. C2 this morning and Levemir 15 units lower to 12 units 03/04/2039 Patient today is confused, mildly agitated but followed commands, looks somewhat upset and sleepy from pain medication Spell been treated for his left leg cellulitis and acute urinary tract infection Urine culture growing ESBL Klebsiella and his Unasyn was switched to meropenem based on sensitivity and continued with IV vancomycin for his left leg cellulitis Hemoglobin is stable at 10, repeat INR is pending today. Leukocytosis is improving to 16.6. His last fever 100.3 today. Blood culture shows staph epidermidis Anemia workup as ordered and is pending Discussed with staff and bedside nurse 03/05/2023 Patient still very weak and lethargic, distal also encephalopathic kind confused, he does not answer a lot of question and follow-up, only at certain times indicate in his delirium on the top of his encephalopathy. Most likely related to his sepsis from his left leg cellulitis and Urinary tract infection related to Quezada catheter. Urine culture is growing ESBL Klebsiella, and he is currently covered with IV m eropenem, IV vancomycin was stopped. Patient probably will need IV antibiotics upon discharge we checked renal ultrasound today which was negative for obstructive uropathy given his significant infection Also patient INR is 3.5. Hemoglobin 8.5. 03/06/2023 Patient more confused and lethargic today, he does not answers my questions or follow commands, his mentation also reported to be worse by family doctor daughter today. His aneurysm was 3.5, repeat INR today is still pending, going to order CT of the brain to rule out hemorrhage. His been treated also with meropenem for his left leg cellulitis, with leg looks less red ,s till warm, mild swelling , no much tenderness also has been treated for UTI with Quezada catheter in place. Culture is growing ESBL Klebsiella. Also for bacteremia with possible contamination. Patient still not eaten much, glucose controlled after we lowered his Levemir 10 units. Also his hands well and therefore we going to switch his fluid #75 mL down to D5 normal saline at 50 mL/h with close monitoring Today I talked to the daughter Gabriella [phone] per her request, all her questions were answered and I discussed the case with her updating her about thi s problem and management plan and she verbalized understanding and acceptance 03/07/2023 Patient awake still slow to answer questions. He still looks somewhat confused and he got agitation at time at bedside and states that he has dementia more than 6 years which is slowly progressive and may be contributing to his slow recovery. He denies specific symptoms. No chest pain or dyspnea. He is afebrile and hemodynamically stable. Leukocytosis back to normal today 15.1 down to 9.8. Hemoglobin stable 9.6. INR 3.0 and patient is going to 1 mg of warfarin tonight. BNP is unremarkable. Patient remains on meropenem with the plan for outpatient IV antibiotic. His home dose of insulin 15 units lower to 10 units because patient was not eating much because of his infection and mental status. Glucose currently controlled 03/08/2023 Patient remains confused and agitated at times. It could be part of his worsening dementia as per at bedside for more than 5-6 years complicated by his infection and sepsis and metabolic encephalopathy. He is getting Seroquel and Haldol when necessary. He remains treated for UTI with ESBL Klebsiella with meropenem and lower extremity cellulitis and he is improving regarding this. Currently he is afebrile and leukocytosis back to normal at 9.9. Hemoglobin stable 8.4. INR 3.4 and 14 minutes and hold for now. His sodium come back elevated at 154 (result came back late) so started patient on D5W at 75 mm/h with close monitoring of solid 03/12/2023 Patient today was awake alert, calm but when I talked to him he agreed to answer me he told me he is in [facility], the date of the name of the president. He has inside after his illness with limitation. However his mentation almost close or back to baseline. at bedside. She agrees with his improvement. Patient is taking his oral medication. He remains on IV antibiotics and is proven Plan is to obtain PICC line tomorrow for IV antibiotics upon discharge per ID team recommendation. 03/13/2023 Patient mentation is stable, at baseline. With a bit more sleepy than usual. However easily arousable. Follow commands. No new complaints. Patient could not get the PICC line today for IV antibiotics upon discharge because of the INR jumped up 5.3 although he was receiving 1 mg of warfarin daily over the last 3 days. Vitamin K by mouth is ordered 1 however it was not given. Repeat INR back to a lower level at 3.9. No evidence of bleeding. We'll keep monitoring. Still pending PICC line placement Remains on IV InVance 03/14/2023 Patient awake and alert but staying in bed, looks lethargic. He denies specific complaint This pending PICC line placement which is on hold because of high INR 3.6 today. Going to give one-time dose of oral vitamin K 2.5 mg on hold Coumadin tonight, already discussed with staff. Patient will be discharged on IV antibiotics for his ESBL Klebsiella and left leg cellulitis which are improving. Quezada catheter in place Patient refused to take his oral medication yesterday and I talked to him and he to come Today he is still refuses his medication this morning. Also patient was not eating for the last 5-6 days. Patient denies specific complaints or choking. I talked to the patient and encouraged him to 8 with chest benefits explained for him and he agrees to start eating again. Patient already by psychiatrist and medications were adjusted previously. We'll ask for swallow evaluation. at bedside and perform patient declines PEG tube placement if needed. 03/15/2023 Patient is sleeping most of the day, he got [place] 10 mg today. Today's INR 1.3 and PICC line could be placed. He remains on Invanz for now Patient is refusing pills and diet. He took his morning pills. We will try to give him Coumadin 6 mg tonight and check INR tomorrow We encourage patient to eat he agrees but then is not really eating This could be due to a lot of narcotics and sedatives therefore we stopped [place]o 10 mg, [place] gabapentin 200 mg 3 times a day down 200 mg 3 times a day. Also we lowered his BuSpar 50 mg down to 10 mg daily. 2: We kept the patient on Seroquel scheduled AND when necessary for possible agitation as we expected to be more agitated related to his dementia at bedside as I didn't her with the plan and she is agreeable Patient already seen by psychiatry during this admission 03/16/2023 Patient remains very lethargic, awake alert but minimal interactive, he answers questions slowly and sometimes does not answer. His refusing his medication but sometimes taken after talking to him Patient has not been starts eating despite several attempts to convince him. We stopped many of the sedative yesterday like [place] 10 and/or the dose of gabapentin and BuSpar but patient did not show improvement also is not taking a lot of his oral medication anyway We will do an MRI of the brain without contrast today Family has been refusing PEG tube before, PICC line in a Place which she gets a ntibiotic Invanz for now INR today is 1.1. He got Coumadin 1 mg last night continue with Coumadin p harmacy to dose check labs and ammonia level we'll continue monitoring 03/17/2023 Patient today was still confused her to awaken after he received Ativan yesterday. Also he was not is mildly tachypneic, ABG showing hypoxia. He was placed on oxygen treatment and BiPAP for short time. Repeat chest x-ray is ordered He remains on Invanz Patient also has PICC line, dietary consult was placed for possible TPN Also we will consult neurology service today for possible EEG and no improvement in his mentation however patient has no seizure-like activity. He received Coumadin and his INR started going up 1.2 today. After it was held for PICC line placement Family at bedside and discussed management plan with her and she is agreeable 03/18/23 Patient started waking up more today, his more, and interactive and he agrees to start eating after we lowered his BuSpar down to 10 mg and gabapentin 200 mg down 200 mg twice a day We'll try to limit use of sedatives and hepatitic Chest x-ray reviewed and looks unremarkable for acute process and breathing is improved back to baseline. No respiratory symptoms. No other new complaints Neurology input is appreciated for his altered mental status Patient has PICC line If his start eating may be considered for discharge in 24-4 hours if he keeps improving Plan discussed with the patient in details and at bedside and they're in agreement Currently On Invanz Objective - Vital Signs Vital signs: Vital Signs Temp 98.5 F 03/18/23 13:08 Pulse 85 03/18/23 13:08 Resp 17 03/18/23 13:08 BP 151/70 03/18/23 13:08 Pulse Ox 100 03/18/23 13:08 FiO2 40 03/17/23 16:11 Intake & Output 03/17/23 03/18/23 03/18/23 18:59 06:59 18:59 Output Total 350 400 200 Balance -350 -400 -200 Output: Urine 350 400 200 Other: Voiding Method Indwelling Catheter # Bowel Movements 1 - Exam -GENERAL: The patient is alert and oriented x3, not in any acute distress. Well developed, well nourished. HEENT: Pupils are round and equally reacting to light. EOMI. No scleral icterus. No conjunctival pallor. Normocephalic, atraumatic. No pharyngeal erythema. No thyromegaly. CARDIOVASCULAR: S1 and S2 present. No murmurs, rubs, or gallops. PULMONARY: Chest is clear to auscultation, no wheezing , no crackles. ABDOMEN: Soft, nontender, nondistended, normoactive bowel sounds. No palpable organomegaly. MUSCULOSKELETAL: No joint swelling or deformity. -EXTREMITIES: No cyanosis, clubbing, or pedal edema. Left leg cellulitis NEUROLOGICAL: Gross neurological examination did not reveal any focal deficits. SKIN: No rashes. no petechiae. - Labs CBC & Chem 7: 03/18/23 07:35 03/18/23 07:35 Labs: Abnormal Lab Results - Last 24 Hours (Table) 03/17/23 03/17/23 03/18/23 Range/Units 16:34 19:42 05:57 RBC (4.30-5.90) m/uL Hgb (13.0-17.5) gm/dL Hct (39.0-53.0) % RDW (11.5-15.5) % Lymphocytes # (1.0-4.8) k/uL PT (10.0-12.5) sec INR (<1.2) Chloride (98-107) mmol/L Glucose (74-99) mg/dL POC Glucose (mg/dL) 114 H 115 H 166 H (70-110) mg/dL Calcium (8.4-10.2) mg/dL 03/18/23 03/18/23 03/18/23 Range/Units 07:35 07:35 07:35 RBC 3.17 L (4.30-5.90) m/uL Hgb 8.6 L (13.0-17.5) gm/dL Hct 27.6 L (39.0-53.0) % RDW 15.8 H (11.5-15.5) % Lymphocytes # 0.9 L (1.0-4.8) k/uL PT 12.7 H (10.0-12.5) sec INR 1.2 H (<1.2) Chloride 112 H (98-107) mmol/L Glucose 157 H (74-99) mg/dL POC Glucose (mg/dL) (70-110) mg/dL Calcium 7.9 L (8.4-10.2) mg/dL 03/18/23 Range/Units 11:33 RBC (4.30-5.90) m/uL Hgb (13.0-17.5) gm/dL Hct (39.0-53.0) % RDW (11.5-15.5) % Lymphocytes # (1.0-4.8) k/uL PT (10.0-12.5) sec INR (<1.2) Chloride (98-107) mmol/L Glucose (74-99) mg/dL POC Glucose (mg/dL) 166 H (70-110) mg/dL Calcium (8.4-10.2) mg/dL Assessment and Plan Assessment: Acute hypoxic respiratory failure diabetic left heel ulcer stage 3 with surrounding cellulitis . Acute urinary tract infection. Urine culture: ESBL Klebsiella. Patient has indwelling Quezada catheter. UTI related to Quezada catheter Coagulopathy secondary to high INR Hypernatremia, improved Anemia, with worsening hemoglobin Paroxysmal atrial fibrillation on anticoagulation with Coumadin Acute kidney injury likely prerenal creatinine 1.68 and baseline 1.1 proved Generalized weakness and unable to ambulate without support. Hypoglycemia with uncontrolled diabetes type 2 insulin-dependent Coronary arteries with history of stent placement Hypertension Hyperlipidemia Dementia/cognitive impairment Stage II sacral decub ulcers. Plan: Encourage eating and drinking and consult speech evaluation I consulted neurologist to rule out seizure repeat chest x-ray a Continue with invanz Patient still refuses eating and drinking and sleeping most of the time. DC Nor co, low dose of gabapentin and BuSpar. Continue with Seroquel Infectious disease consult on the case hardener INR and hemoglobin dietary consult for possible TPN Continue with insulin 10 units in monitor glucose Labs and medication were reviewed.. Continue same treatment. Continue with symptomatic treatment. Resume home medication. Monitor labs and vitals. DVT and GI prophylaxis. Further recommendations as per clinical course of the patient DVT prophylaxis: on Coumadin GI Prophylaxis: Ppi PT/OT: Pending Prognosis is guarded. Patient with multiple complications and hard to respond to therapy. If patient continued to deteriorate NO improvement a may consider more palliative approach.
[2023-03-18 16:33] LABS: Glucose,Whole Blood 207 mg/dL (70-110)
[2023-03-18 19:41] LABS: Glucose,Whole Blood 169 mg/dL (70-110)
[2023-03-18] MEDS: WARFARIN 2 MG TAB PO ONE (20:26)
--- NOTE | 2023-03-19 01:49 | P.CNNES ---
History of Present Illness Consult date: 03/18/23 Requesting physician: Anthony E Sheet Reason for Consult: AMS History of Present Illness: Patient is a 78-year-old male with history of CAD, atrial fibrillation on anticoagulation with Coumadin, hypertension, diabetes type 2, hyperlipidemia, COPD, gout, mild dementia, currently residing in the [facility], was brought to the hospital by ambulance on 02/28/2023 for abnormal lab findings with elevated WBC count. Patient has cellulitis to his left heel that is wrapped and is in a boot. Patient was recently discharged from the hospital on 02/09/2023 after treatment for left heel diabetic foot ulcer and surrounding cellulitis. Patient does have indwelling Quezada's catheter. I spoke to patient's , who provided with history. She mentions the patient has mild dementia. He would sometimes forget the ways to go during driving. Otherwise his memory was good, recognizes family members. However since he has been hospitalized from 02/28/2023, the memory loss has got further worse. Some days he does not know who his is. Other days he would not recognize his kids. He has 2 kids. Patient's mentions that he has been using cane since last 1 year. Some days he walks without it. Outside uses a cane. Patient's mentions that he has been in [place] for 2-3 weeks since he was recently discharged from the hospital. However while in the [facility], he has been slowly declining, getting sicker and sicker. She was told that it was because of infection was building up. Patient's mentions that in January 2023 he was admitted for kidney failure but that improved. Patient currently is being treated for left leg cellulitis, UTI, positive blood culture and ulcer of the left foot. The blood cultures were staph epidermidis, with question of contamination. Repeat blood cultures negative. Patient's current blood test shows normal WBC hemoglobin 8.6, platelets 42. INR 1.2. Electrolytes, renal functions are normal. Patient's most recent ABG as of yesterday showed pH of 7.48, pCO2 38, pO2 57, saturation 89.8%. Ammonia is < 9. Patient had an MRI of the brain performed 03/16/2023 which revealed mild to moderate diffuse cerebral atrophy and fairly moderate chronic small vessel ischemic change. An underlying normal pressure hydrocephalus is not excluded. No significant change in ventricular size since 2020 however. No MRI evidence for recent infarct. I personally reviewed MRI, I agree with the findings. Patient denies any history of tobacco, alcohol use. He has history of diabetes for 10+ years. Review of Systems Constitutional: Reports fever, Denies chills Eyes: denies blurred vision, denies diplopia, denies pain, denies loss of peripheral vision Ears: bilateral: decreased hearing, deny: tinnitus Ears, nose, mouth and throat: Denies headache, Denies sore throat, Denies vertigo Cardiovascular: Denies chest pain, Denies lightheadedness, Denies shortness of breath Respiratory: Reports cough, Denies excessive sputum Gastrointestinal: Denies abdominal pain, Denies diarrhea, Denies nausea, Denies vomiting Genitourinary: Reports incontinence (Mild sometimes) Musculoskeletal: Reports low back pain, Denies neck pain Integumentary: Denies pruritus, Denies rash Neurological: Reports as per HPI Psychiatric: Denies anxiety, Denies depression Endocrine: Reports fatigue, Denies weight change Hematologic/Lymphatic: Reports easy bleeding, Reports easy bruising Past Medical History Past Medical History: COPD, Diabetes Mellitus, Hyperlipidemia, Hypertension, Myocardial Infarction ([place]) Additional Past Medical History / Comment(s): Recent sore R great toe-healed, gout. Last Myocardial Infarction Date:: 1991 History of Any Multi-Drug Resistant Organisms: ESBL Date of last positivie culture/infection: 02/28/23 MDRO Source:: Urine Past Surgical History: Heart Catheterization, Heart Catheterization With Stent Additional Past Surgical History / Comment(s): 01/18/16 cardiac stents to RCA x2. Other surgical hx: balloon angiioplasty 1991, nathan cataracts Past Anesthesia/Blood Transfusion Reactions: No Reported Reaction Date of Last Stent Placement:: 01/19/16 Past Psychological History: No Psychological Hx Reported Smoking Status: Never smoker Past Alcohol Use History: None Reported Past Drug Use History: None Reported - Past Family History Mother Family Medical History: No Reported History Additional Family Medical History / Comment(s): Mother is healthy and is 89yrs old. Father Family Medical History: Cancer Additional Family Medical History / Comment(s): "blood cancer". at the age of 73 yrs. Medications and Allergies Home Medications Medication Instructions Recorded Confirmed Type Atorvastatin [Lipitor] 80 mg PO HS@2100 01/14/16 02/28/23 History Loratadine 10 mg PO DAILY@89901/14/16 02/28/23 History amLODIPine BESYLATE [Norvasc] 5 mg PO BID@0900,209901/14/16 02/28/23 History busPIRone HCL 15 mg PO DAILY@89901/14/16 02/28/23 History cloNIDine HCL [Catapres] 0.1 mg PO BID@0900,209901/14/16 02/28/23 History Cholecalciferol (Vitamin D3) 75 mcg PO DAILY@89912/18/22 02/28/23 History [Vitamin D3 (3000 Iu)] Donepezil [Aricept] 10 mg PO HS@209912/18/22 02/28/23 History Acetaminophen Tab [Tylenol] 650 mg PO Q4H PRN 02/03/23 02/28/23 History Metoprolol Tartrate [Lopressor] 50 mg PO DAILY@89902/03/23 02/28/23 History hydrALAZINE HCL [Apresoline] 75 mg PO DAILY@89902/03/23 02/28/23 History Calcium Acetate [PhosLo] 667 mg PO TID@0800,1200,1700 02/28/23 02/28/23 History Collagenase [Santyl Ointment] 1 applic TOPICAL DAILY PRN 02/28/23 02/28/23 History Collagenase [Santyl Ointment] 1 applic TOPICAL HS 02/28/23 02/28/23 History Doxycycline Hyclate 100 mg PO BID@0900,209902/28/23 02/28/23 History Furosemide [Lasix] 40 mg PO DAILY@0602/28/23 02/28/23 History Gabapentin [Neurontin] 200 mg PO TID@0600,1400,2200 02/28/23 02/28/23 History HYDROcodone/APAP 10-325MG [Loop 1 tab PO Q6HR PRN 02/28/23 02/28/23 History 10-325] Insulin Glargine-Yfgn [Semglee 15 units SQ HS@209902/28/23 02/28/23 History (Yfgn) Pen] Insulin Lispro See Protocol SQ ACHS 02/28/23 02/28/23 History Omeprazole [PriLOSEC] 20 mg PO DAILY@0600 02/28/23 02/28/23 History Simethicone Chew [Mylicon Chew] 40 mg PO QID@09,13,17,21 02/28/23 02/28/23 History Triamcinolone 0.1% Cream [Kenalog 1 applicatio TOPICAL HS 02/28/23 02/28/23 History 0.1% Cream] Warfarin [Coumadin] 2 mg PO DAILY@1700 02/28/23 02/28/23 History predniSONE [Deltasone] 40 mg PO DAILY@0900 02/28/23 02/28/23 History Allergies Allergy/AdvReac Type Severity Reaction Status Date / Time No Known Allergies Allergy Verified 02/28/23 14:04 Physical Examination - Vital Signs Vital Signs: Vital Signs Temp Pulse Resp BP Pulse Ox FiO2 03/18/23 13:08 98.5 F 85 17 151/70 100 03/18/23 08:00 98.4 F 106 H 18 136/73 100 03/18/23 02:00 97.8 F 96 145/75 96 03/17/23 20:00 98.9 F 94 135/76 98 03/17/23 16:11 40 Intake and Output 03/17/23 03/18/23 03/18/23 22:59 06:59 14:59 Output Total 350 400 200 Balance -350 -400 -200 Output: Urine 350 400 200 Other: Voiding Method Indwelling Catheter # Bowel Movements 1 Patient is an elderly male, in no acute distress. Patient is alert awake. Patient states it is the month of January and the year is 1919. He states that he is in [facility]. He believes that he is in a rehab facility in [facility]. Later he said he is in [place]. He could not tell name of the current president although was able to tell the name with prompting. Speech and language functions are normal. Patient can name and repeat very well. No aphasia or dysarthria. Attention, concentration is decreased and fund of knowledge is limited. Patient has a very slow mentation. Delayed response and increased latency to answer questions. On cranial nerve examination, pupils are equal, round and reacting to light, visual sousa are full on confrontation, with no neglect on double simultaneous stimulation. Extraocular muscles are intact with no nystagmus. Face is symmetric, tongue protrudes to the midline. Palatal elevation and sensation normal, hearing is moderately decreased and shoulder shrug normal, facial sensation normal. On muscle strength testing, patient is very weak generalized. Patient has tremors of outstretched hands. 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 Deep tendon reflexes are symmetric 2 at the biceps, 2 brachioradialis, 2 at the right knee, 1 on the left. Ankles are 1 in plantar is upgoing. Sensory to touch is equal with no neglect on double simultaneous stimulation. Cerebellar function showed no ataxia for [id number] testing, although patient is very shaky and slow to act. Cannot perform to check for ataxia for elna-fk-vkes testing on either side. Tone and bulk of muscles normal. Gait deferred.. On general examination, there is no carotid bruit or murmur, S1-S2 audible. Chest is clear on consultation. Abdomen is soft nontender. No organomegaly, bowel sounds present. Patient has peripheral edema. Patient has a sore on the left heel and has a bandage. Patient has skin changes in the legs. Patient has significant swelling with wrinkling in the forearms bilaterally. Results - Laboratory Findings CBC and BMP: 03/18/23 07:35 03/18/23 07:35 Abnormal Lab Findings: Abnormal Labs 02/28/23 02/28/23 02/28/23 13:02 13:02 18:12 WBC 22.0 H RBC Hgb Hct 38.8 L MCH MCHC RDW Plt Count Immature Gran # Neutrophils # 20.0 H Lymphocytes # Monocytes # Eosinophils # Acanthocytes (Spur) PT INR ABG pH ABG pO2 ABG HCO3 ABG Total CO2 ABG O2 Saturation Sodium 136 L Potassium Chloride 97 L Carbon Dioxide 31 H BUN 60 H Creatinine 1.68 H BUN/Creatinine Ratio Glucose 197 H POC Glucose (mg/dL) Hemoglobin A1c Calcium Iron TIBC % Saturation Transferrin C-Reactive Protein Total Protein Albumin 3.4 L Urine Protein Urine Blood Ur Leukocyte Esterase Large H Urine RBC Urine WBC 13 H Urine WBC Clumps Calcium Oxalate Crystal Cystine Crystals Urine Bacteria Occasional H Urine Mucus Rare H Urine Yeast (Budding) 03/01/23 03/01/23 03/01/23 01:21 06:36 06:36 WBC 12.14 H RBC 4.09 L Hgb 10.9 L Hct 34.8 L MCH 26.7 L MCHC 31.3 L RDW 15.6 H Plt Count Immature Gran # 0.06 H Neutrophils # 9.79 H Lymphocytes # Monocytes # Eosinophils # 0.02 L Acanthocytes (Spur) PT 29.3 H INR 3.0 H ABG pH ABG pO2 ABG HCO3 ABG Total CO2 ABG O2 Saturation Sodium Potassium Chloride Carbon Dioxide BUN Creatinine BUN/Creatinine Ratio Glucose POC Glucose (mg/dL) Hemoglobin A1c 8.0 H Calcium Iron TIBC % Saturation Transferrin C-Reactive Protein Total Protein Albumin Urine Protein Urine Blood Ur Leukocyte Esterase Urine RBC Urine WBC Urine WBC Clumps Calcium Oxalate Crystal Cystine Crystals Urine Bacteria Urine Mucus Urine Yeast (Budding) 03/01/23 03/01/23 03/01/23 06:36 07:30 12:05 WBC RBC Hgb Hct MCH MCHC RDW Plt Count Immature Gran # Neutrophils # Lymphocytes # Monocytes # Eosinophils # Acanthocytes (Spur) PT 25.2 H INR 2.48 H ABG pH ABG pO2 ABG HCO3 ABG Total CO2 ABG O2 Saturation Sodium Potassium Chloride Carbon Dioxide BUN Creatinine BUN/Creatinine Ratio Glucose POC Glucose (mg/dL) 199 H 216 H Hemoglobin A1c Calcium Iron TIBC % Saturation Transferrin C-Reactive Protein Total Protein Albumin Urine Protein Urine Blood Ur Leukocyte Esterase Urine RBC Urine WBC Urine WBC Clumps Calcium Oxalate Crystal Cystine Crystals Urine Bacteria Urine Mucus Urine Yeast (Budding) 03/01/23 03/02/23 03/02/23 20:07 06:06 07:28 WBC RBC Hgb Hct MCH MCHC RDW Plt Count Immature Gran # Neutrophils # Lymphocytes # Monocytes # Eosinophils # Acanthocytes (Spur) PT 30.9 H INR 3.1 H ABG pH ABG pO2 ABG HCO3 ABG Total CO2 ABG O2 Saturation Sodium Potassium Chloride Carbon Dioxide BUN Creatinine BUN/Creatinine Ratio Glucose POC Glucose (mg/dL) 131 H 66 L Hemoglobin A1c Calcium Iron TIBC % Saturation Transferrin C-Reactive Protein Total Protein Albumin Urine Protein Urine Blood Ur Leukocyte Esterase Urine RBC Urine WBC Urine WBC Clumps Calcium Oxalate Crystal Cystine Crystals Urine Bacteria Urine Mucus Urine Yeast (Budding) 03/02/23 03/02/23 03/02/23 07:28 07:28 11:13 WBC 16.4 H RBC 3.98 L Hgb 11.4 L Hct 34.7 L MCH MCHC RDW Plt Count Immature Gran # Neutrophils # 14.7 H Lymphocytes # 0.9 L Monocytes # Eosinophils # Acanthocytes (Spur) PT INR ABG pH ABG pO2 ABG HCO3 ABG Total CO2 ABG O2 Saturation Sodium Potassium 2.9 L Chloride 109 H Carbon Dioxide BUN 32 H Creatinine BUN/Creatinine Ratio Glucose POC Glucose (mg/dL) Hemoglobin A1c Calcium 8.1 L Iron TIBC % Saturation Transferrin C-Reactive Protein 3.1 H Total Protein Albumin Urine Protein 2+ H Urine Blood Moderate H Ur Leukocyte Esterase Moderate H Urine RBC 121 H Urine WBC 69 H Urine WBC Clumps Moderate H Calcium Oxalate Crystal Few H Cystine Crystals Positive H Urine Bacteria Occasional H Urine Mucus Rare H Urine Yeast (Budding) Few H 03/02/23 03/03/23 03/03/23 21:19 05:52 06:03 WBC RBC Hgb Hct MCH MCHC RDW Plt Count Immature Gran # Neutrophils # Lymphocytes # Monocytes # Eosinophils # Acanthocytes (Spur) PT INR ABG pH ABG pO2 ABG HCO3 ABG Total CO2 ABG O2 Saturation Sodium Potassium 3.3 L Chloride 117 H Carbon Dioxide BUN Creatinine BUN/Creatinine Ratio Glucose 65 L POC Glucose (mg/dL) 127 H 69 L Hemoglobin A1c Calcium 8.3 L Iron TIBC % Saturation Transferrin C-Reactive Protein Total Protein Albumin Urine Protein Urine Blood Ur Leukocyte Esterase Urine RBC Urine WBC Urine WBC Clumps Calcium Oxalate Crystal Cystine Crystals Urine Bacteria Urine Mucus Urine Yeast (Budding) 03/03/23 03/03/23 03/03/23 06:45 10:54 10:54 WBC 17.5 H RBC 3.42 L Hgb 9.8 L D Hct 30.1 L MCH MCHC RDW 15.6 H Plt Count Immature Gran # Neutrophils # 15.5 H Lymphocytes # Monocytes # Eosinophils # Acanthocytes (Spur) PT 39.6 H INR 4.0 H ABG pH ABG pO2 ABG HCO3 ABG Total CO2 ABG O2 Saturation Sodium Potassium 3.3 L Chloride 115 H Carbon Dioxide BUN Creatinine BUN/Creatinine Ratio Glucose 66 L POC Glucose (mg/dL) Hemoglobin A1c Calcium 7.8 L Iron TIBC % Saturation Transferrin C-Reactive Protein Total Protein Albumin Urine Protein Urine Blood Ur Leukocyte Esterase Urine RBC Urine WBC Urine WBC Clumps Calcium Oxalate Crystal Cystine Crystals Urine Bacteria Urine Mucus Urine Yeast (Budding) 0103/03/23 03/03/23 11:39 19:35 20:10 WBC 16.6 H RBC 3.56 L Hgb 10.0 L Hct 31.4 L MCH MCHC RDW 15.8 H Plt Count Immature Gran # Neutrophils # Lymphocytes # Monocytes # Eosinophils # Acanthocytes (Spur) PT INR ABG pH ABG pO2 ABG HCO3 ABG Total CO2 ABG O2 Saturation Sodium Potassium Chloride Carbon Dioxide BUN Creatinine BUN/Creatinine Ratio Glucose POC Glucose (mg/dL) 62 L 150 H Hemoglobin A1c Calcium Iron TIBC % Saturation Transferrin C-Reactive Protein Total Protein Albumin Urine Protein Urine Blood Ur Leukocyte Esterase Urine RBC Urine WBC Urine WBC Clumps Calcium Oxalate Crystal Cystine Crystals Urine Bacteria Urine Mucus Urine Yeast (Budding) 03/04/23 03/04/23 03/04/23 11:17 11:17 11:17 WBC 15.9 H RBC 3.22 L Hgb 9.4 L Hct 28.5 L MCH MCHC RDW 15.7 H Plt Count 133 L Immature Gran # Neutrophils # 13.8 H Lymphocytes # 0.8 L Monocytes # Eosinophils # Acanthocytes (Spur) PT 37.0 H INR 3.8 H ABG pH ABG pO2 ABG HCO3 ABG Total CO2 ABG O2 Saturation Sodium Potassium 3.2 L Chloride 117 H Carbon Dioxide BUN Creatinine BUN/Creatinine Ratio Glucose 110 H POC Glucose (mg/dL) Hemoglobin A1c Calcium 7.4 L Iron 10 L TIBC 168 L % Saturation 5.95 L Transferrin 120.0 L C-Reactive Protein Total Protein Albumin Urine Protein Urine Blood Ur Leukocyte Esterase Urine RBC Urine WBC Urine WBC Clumps Calcium Oxalate Crystal Cystine Crystals Urine Bacteria Urine Mucus Urine Yeast (Budding) 03/04/23 03/04/23 03/04/23 11:23 16:27 20:12 WBC RBC Hgb Hct MCH MCHC RDW Plt Count Immature Gran # Neutrophils # Lymphocytes # Monocytes # Eosinophils # Acanthocytes (Spur) PT INR ABG pH ABG pO2 ABG HCO3 ABG Total CO2 ABG O2 Saturation Sodium Potassium Chloride Carbon Dioxide BUN Creatinine BUN/Creatinine Ratio Glucose POC Glucose (mg/dL) 124 H 121 H 127 H Hemoglobin A1c Calcium Iron TIBC % Saturation Transferrin C-Reactive Protein Total Protein Albumin Urine Protein Urine Blood Ur Leukocyte Esterase Urine RBC Urine WBC Urine WBC Clumps Calcium Oxalate Crystal Cystine Crystals Urine Bacteria Urine Mucus Urine Yeast (Budding) 0103/05/23 03/05/23 01:48 07:43 07:43 WBC 15.10 H RBC 3.13 L Hgb 8.5 L Hct 28.7 L MCH MCHC 29.6 L RDW 16.0 H Plt Count 139 L Immature Gran # 0.07 H Neutrophils # 12.07 H Lymphocytes # Monocytes # 1.02 H Eosinophils # Acanthocytes (Spur) PT 34.5 H INR 3.5 H ABG pH ABG pO2 ABG HCO3 ABG Total CO2 ABG O2 Saturation Sodium Potassium Chloride Carbon Dioxide BUN Creatinine BUN/Creatinine Ratio Glucose POC Glucose (mg/dL) 126 H Hemoglobin A1c Calcium Iron TIBC % Saturation Transferrin C-Reactive Protein Total Protein Albumin Urine Protein Urine Blood Ur Leukocyte Esterase Urine RBC Urine WBC Urine WBC Clumps Calcium Oxalate Crystal Cystine Crystals Urine Bacteria Urine Mucus Urine Yeast (Budding) 03/05/23 03/05/23 03/06/23 07:43 11:33 05:52 WBC RBC Hgb Hct MCH MCHC RDW Plt Count Immature Gran # Neutrophils # Lymphocytes # Monocytes # Eosinophils # Acanthocytes (Spur) PT INR ABG pH ABG pO2 ABG HCO3 ABG Total CO2 ABG O2 Saturation Sodium Potassium Chloride 113 H Carbon Dioxide 20.9 L BUN Creatinine BUN/Creatinine Ratio 10.50 L Glucose POC Glucose (mg/dL) 119 H 176 H Hemoglobin A1c Calcium 7.2 L Iron TIBC % Saturation Transferrin C-Reactive Protein Total Protein Albumin Urine Protein Urine Blood Ur Leukocyte Esterase Urine RBC Urine WBC Urine WBC Clumps Calcium Oxalate Crystal Cystine Crystals Urine Bacteria Urine Mucus Urine Yeast (Budding) 03/06/23 03/06/23 03/06/23 11:11 11:46 16:31 WBC RBC Hgb Hct MCH MCHC RDW Plt Count Immature Gran # Neutrophils # Lymphocytes # Monocytes # Eosinophils # Acanthocytes (Spur) PT 33.5 H INR 3.4 H ABG pH ABG pO2 ABG HCO3 ABG Total CO2 ABG O2 Saturation Sodium Potassium Chloride Carbon Dioxide BUN Creatinine BUN/Creatinine Ratio Glucose POC Glucose (mg/dL) 155 H 291 H Hemoglobin A1c Calcium Iron TIBC % Saturation Transferrin C-Reactive Protein Total Protein Albumin Urine Protein Urine Blood Ur Leukocyte Esterase Urine RBC Urine WBC Urine WBC Clumps Calcium Oxalate Crystal Cystine Crystals Urine Bacteria Urine Mucus Urine Yeast (Budding) 03/06/23 03/07/23 03/07/23 19:44 06:12 11:03 WBC RBC Hgb Hct MCH MCHC RDW Plt Count Immature Gran # Neutrophils # Lymphocytes # Monocytes # Eosinophils # Acanthocytes (Spur) PT INR ABG pH ABG pO2 ABG HCO3 ABG Total CO2 ABG O2 Saturation Sodium Potassium Chloride Carbon Dioxide BUN Creatinine BUN/Creatinine Ratio Glucose POC Glucose (mg/dL) 268 H 178 H 147 H Hemoglobin A1c Calcium Iron TIBC % Saturation Transferrin C-Reactive Protein Total Protein Albumin Urine Protein Urine Blood Ur Leukocyte Esterase Urine RBC Urine WBC Urine WBC Clumps Calcium Oxalate Crystal Cystine Crystals Urine Bacteria Urine Mucus Urine Yeast (Budding) 03/07/23 03/07/23 03/07/23 17:12 18:54 18:54 WBC RBC 3.43 L Hgb 9.6 L Hct 30.0 L MCH MCHC RDW Plt Count Immature Gran # Neutrophils # 8.1 H Lymphocytes # Monocytes # Eosinophils # Acanthocytes (Spur) PT INR ABG pH ABG pO2 ABG HCO3 ABG Total CO2 ABG O2 Saturation Sodium Potassium Chloride 112 H Carbon Dioxide BUN 7 L Creatinine BUN/Creatinine Ratio Glucose 129 H POC Glucose (mg/dL) 143 H Hemoglobin A1c Calcium 7.6 L Iron TIBC % Saturation Transferrin C-Reactive Protein Total Protein Albumin Urine Protein Urine Blood Ur Leukocyte Esterase Urine RBC Urine WBC Urine WBC Clumps Calcium Oxalate Crystal Cystine Crystals Urine Bacteria Urine Mucus Urine Yeast (Budding) 03/07/23 03/07/23 03/08/23 18:54 19:55 06:40 WBC RBC Hgb Hct MCH MCHC RDW Plt Count Immature Gran # Neutrophils # Lymphocytes # Monocytes # Eosinophils # Acanthocytes (Spur) PT 29.9 H 33.4 H INR 3.0 H 3.4 H ABG pH ABG pO2 ABG HCO3 ABG Total CO2 ABG O2 Saturation Sodium Potassium Chloride Carbon Dioxide BUN Creatinine BUN/Creatinine Ratio Glucose POC Glucose (mg/dL) 146 H Hemoglobin A1c Calcium Iron TIBC % Saturation Transferrin C-Reactive Protein Total Protein Albumin Urine Protein Urine Blood Ur Leukocyte Esterase Urine RBC Urine WBC Urine WBC Clumps Calcium Oxalate Crystal Cystine Crystals Urine Bacteria Urine Mucus Urine Yeast (Budding) 03/08/23 03/08/23 03/08/23 06:40 06:40 16:52 WBC RBC 3.13 L Hgb 8.4 L Hct 27.3 L MCH 26.8 L MCHC 30.8 L RDW 15.9 H Plt Count Immature Gran # Neutrophils # Lymphocytes # Monocytes # Eosinophils # Acanthocytes (Spur) PT INR ABG pH ABG pO2 ABG HCO3 ABG Total CO2 ABG O2 Saturation Sodium 154 H Potassium 3.4 L Chloride 120 H Carbon Dioxide BUN 6.4 L Creatinine BUN/Creatinine Ratio 9.14 L Glucose 68 L POC Glucose (mg/dL) 140 H Hemoglobin A1c Calcium 7.5 L Iron TIBC % Saturation Transferrin C-Reactive Protein 19.90 H Total Protein Albumin Urine Protein Urine Blood Ur Leukocyte Esterase Urine RBC Urine WBC Urine WBC Clumps Calcium Oxalate Crystal Cystine Crystals Urine Bacteria Urine Mucus Urine Yeast (Budding) 03/09/23 03/09/23 03/09/23 09:54 12:10 12:15 WBC RBC Hgb Hct MCH MCHC RDW Plt Count Immature Gran # Neutrophils # Lymphocytes # Monocytes # Eosinophils # Acanthocytes (Spur) PT INR ABG pH ABG pO2 ABG HCO3 ABG Total CO2 ABG O2 Saturation Sodium 136 L Potassium Chloride 108 H Carbon Dioxide BUN Creatinine 0.64 L BUN/Creatinine Ratio Glucose 141 H POC Glucose (mg/dL) 185 H 154 H Hemoglobin A1c Calcium 7.2 L Iron TIBC % Saturation Transferrin C-Reactive Protein Total Protein Albumin Urine Protein Urine Blood Ur Leukocyte Esterase Urine RBC Urine WBC Urine WBC Clumps Calcium Oxalate Crystal Cystine Crystals Urine Bacteria Urine Mucus Urine Yeast (Budding) 03/09/23 03/09/23 03/09/23 12:23 12:23 15:55 WBC RBC 3.18 L Hgb 9.0 L Hct 28.9 L MCH MCHC RDW Plt Count Immature Gran # Neutrophils # Lymphocytes # Monocytes # Eosinophils # Acanthocytes (Spur) PT 31.4 H INR 3.2 H ABG pH ABG pO2 ABG HCO3 ABG Total CO2 ABG O2 Saturation Sodium Potassium Chloride Carbon Dioxide BUN Creatinine BUN/Creatinine Ratio Glucose POC Glucose (mg/dL) 161 H Hemoglobin A1c Calcium Iron TIBC % Saturation Transferrin C-Reactive Protein Total Protein Albumin Urine Protein Urine Blood Ur Leukocyte Esterase Urine RBC Urine WBC Urine WBC Clumps Calcium Oxalate Crystal Cystine Crystals Urine Bacteria Urine Mucus Urine Yeast (Budding) 03/09/23 03/10/23 03/10/23 20:58 02:33 06:24 WBC RBC Hgb Hct MCH MCHC RDW Plt Count Immature Gran # Neutrophils # Lymphocytes # Monocytes # Eosinophils # Acanthocytes (Spur) PT 34.7 H INR 3.5 H ABG pH ABG pO2 ABG HCO3 ABG Total CO2 ABG O2 Saturation Sodium Potassium Chloride Carbon Dioxide BUN Creatinine BUN/Creatinine Ratio Glucose POC Glucose (mg/dL) 129 H 114 H Hemoglobin A1c Calcium Iron TIBC % Saturation Transferrin C-Reactive Protein Total Protein Albumin Urine Protein Urine Blood Ur Leukocyte Esterase Urine RBC Urine WBC Urine WBC Clumps Calcium Oxalate Crystal Cystine Crystals Urine Bacteria Urine Mucus Urine Yeast (Budding) 03/10/23 03/10/23 03/10/23 06:24 06:24 11:25 WBC RBC 3.04 L Hgb 8.2 L Hct 26.5 L MCH MCHC 30.9 L RDW 15.9 H Plt Count Immature Gran # Neutrophils # Lymphocytes # Monocytes # Eosinophils # Acanthocytes (Spur) 2+ A PT INR ABG pH ABG pO2 ABG HCO3 ABG Total CO2 ABG O2 Saturation Sodium Potassium 3.4 L Chloride Carbon Dioxide BUN 6.7 L Creatinine BUN/Creatinine Ratio 9.57 L Glucose POC Glucose (mg/dL) 66 L Hemoglobin A1c Calcium 7.3 L Iron TIBC % Saturation Transferrin C-Reactive Protein Total Protein Albumin Urine Protein Urine Blood Ur Leukocyte Esterase Urine RBC Urine WBC Urine WBC Clumps Calcium Oxalate Crystal Cystine Crystals Urine Bacteria Urine Mucus Urine Yeast (Budding) 03/10/23 03/11/23 03/11/23 20:28 06:59 07:34 WBC RBC Hgb Hct MCH MCHC RDW Plt Count Immature Gran # Neutrophils # Lymphocytes # Monocytes # Eosinophils # Acanthocytes (Spur) PT 32.2 H INR 3.3 H ABG pH ABG pO2 ABG HCO3 ABG Total CO2 ABG O2 Saturation Sodium Potassium Chloride Carbon Dioxide BUN Creatinine BUN/Creatinine Ratio Glucose POC Glucose (mg/dL) 131 H 139 H Hemoglobin A1c Calcium Iron TIBC % Saturation Transferrin C-Reactive Protein Total Protein Albumin Urine Protein Urine Blood Ur Leukocyte Esterase Urine RBC Urine WBC Urine WBC Clumps Calcium Oxalate Crystal Cystine Crystals Urine Bacteria Urine Mucus Urine Yeast (Budding) 03/11/23 03/11/23 03/11/23 07:34 07:34 11:25 WBC RBC 3.19 L Hgb 8.8 L Hct 27.6 L MCH MCHC RDW Plt Count Immature Gran # Neutrophils # Lymphocytes # Monocytes # Eosinophils # Acanthocytes (Spur) PT INR ABG pH ABG pO2 ABG HCO3 ABG Total CO2 ABG O2 Saturation Sodium 135 L Potassium 3.4 L Chloride Carbon Dioxide BUN 8 L Creatinine BUN/Creatinine Ratio Glucose 134 H POC Glucose (mg/dL) 183 H Hemoglobin A1c Calcium 7.5 L Iron TIBC % Saturation Transferrin C-Reactive Protein Total Protein Albumin Urine Protein Urine Blood Ur Leukocyte Esterase Urine RBC Urine WBC Urine WBC Clumps Calcium Oxalate Crystal Cystine Crystals Urine Bacteria Urine Mucus Urine Yeast (Budding) 03/11/23 03/11/23 03/12/23 16:49 19:53 05:34 WBC RBC Hgb Hct MCH MCHC RDW Plt Count Immature Gran # Neutrophils # Lymphocytes # Monocytes # Eosinophils # Acanthocytes (Spur) PT INR ABG pH ABG pO2 ABG HCO3 ABG Total CO2 ABG O2 Saturation Sodium Potassium Chloride Carbon Dioxide BUN Creatinine BUN/Creatinine Ratio Glucose POC Glucose (mg/dL) 197 H 164 H 184 H Hemoglobin A1c Calcium Iron TIBC % Saturation Transferrin C-Reactive Protein Total Protein Albumin Urine Protein Urine Blood Ur Leukocyte Esterase Urine RBC Urine WBC Urine WBC Clumps Calcium Oxalate Crystal Cystine Crystals Urine Bacteria Urine Mucus Urine Yeast (Budding) 03/12/23 03/12/23 03/12/23 10:18 10:18 10:18 WBC RBC 3.27 L Hgb 8.9 L Hct 27.8 L MCH MCHC RDW 15.6 H Plt Count Immature Gran # Neutrophils # Lymphocytes # Monocytes # Eosinophils # Acanthocytes (Spur) PT 28.8 H INR 2.9 H ABG pH ABG pO2 ABG HCO3 ABG Total CO2 ABG O2 Saturation Sodium Potassium 3.0 L Chloride 108 H Carbon Dioxide BUN Creatinine BUN/Creatinine Ratio Glucose 146 H POC Glucose (mg/dL) Hemoglobin A1c Calcium 7.9 L Iron TIBC % Saturation Transferrin C-Reactive Protein Total Protein Albumin Urine Protein Urine Blood Ur Leukocyte Esterase Urine RBC Urine WBC Urine WBC Clumps Calcium Oxalate Crystal Cystine Crystals Urine Bacteria Urine Mucus Urine Yeast (Budding) 03/12/23 03/12/23 03/12/23 11:23 16:30 20:28 WBC RBC Hgb Hct MCH MCHC RDW Plt Count Immature Gran # Neutrophils # Lymphocytes # Monocytes # Eosinophils # Acanthocytes (Spur) PT INR ABG pH ABG pO2 ABG HCO3 ABG Total CO2 ABG O2 Saturation Sodium Potassium Chloride Carbon Dioxide BUN Creatinine BUN/Creatinine Ratio Glucose POC Glucose (mg/dL) 174 H 153 H 168 H Hemoglobin A1c Calcium Iron TIBC % Saturation Transferrin C-Reactive Protein Total Protein Albumin Urine Protein Urine Blood Ur Leukocyte Esterase Urine RBC Urine WBC Urine WBC Clumps Calcium Oxalate Crystal Cystine Crystals Urine Bacteria Urine Mucus Urine Yeast (Budding) 03/13/23 03/13/23 03/14/23 07:43 14:50 06:19 WBC RBC Hgb Hct MCH MCHC RDW Plt Count Immature Gran # Neutrophils # Lymphocytes # Monocytes # Eosinophils # Acanthocytes (Spur) PT 52.2 H 37.8 H INR 5.3 H* 3.9 H ABG pH ABG pO2 ABG HCO3 ABG Total CO2 ABG O2 Saturation Sodium Potassium Chloride Carbon Dioxide BUN Creatinine BUN/Creatinine Ratio Glucose POC Glucose (mg/dL) 116 H Hemoglobin A1c Calcium Iron TIBC % Saturation Transferrin C-Reactive Protein Total Protein Albumin Urine Protein Urine Blood Ur Leukocyte Esterase Urine RBC Urine WBC Urine WBC Clumps Calcium Oxalate Crystal Cystine Crystals Urine Bacteria Urine Mucus Urine Yeast (Budding) 03/14/23 03/14/23 03/14/23 08:31 08:31 08:31 WBC RBC 3.08 L Hgb 8.5 L Hct 27.1 L MCH MCHC RDW 15.7 H Plt Count 464 H Immature Gran # Neutrophils # Lymphocytes # Monocytes # Eosinophils # Acanthocytes (Spur) PT 35.0 H INR 3.6 H ABG pH ABG pO2 ABG HCO3 ABG Total CO2 ABG O2 Saturation Sodium Potassium Chloride 110 H Carbon Dioxide BUN 8 L Creatinine 0.56 L BUN/Creatinine Ratio Glucose 106 H POC Glucose (mg/dL) Hemoglobin A1c Calcium 7.7 L Iron TIBC % Saturation Transferrin C-Reactive Protein Total Protein 4.7 L Albumin 1.9 L Urine Protein Urine Blood Ur Leukocyte Esterase Urine RBC Urine WBC Urine WBC Clumps Calcium Oxalate Crystal Cystine Crystals Urine Bacteria Urine Mucus Urine Yeast (Budding) 03/14/23 03/14/23 03/15/23 16:52 21:01 05:51 WBC RBC Hgb Hct MCH MCHC RDW Plt Count Immature Gran # Neutrophils # Lymphocytes # Monocytes # Eosinophils # Acanthocytes (Spur) PT 13.3 H INR 1.3 H ABG pH ABG pO2 ABG HCO3 ABG Total CO2 ABG O2 Saturation Sodium Potassium Chloride Carbon Dioxide BUN Creatinine BUN/Creatinine Ratio Glucose POC Glucose (mg/dL) 111 H 123 H Hemoglobin A1c Calcium Iron TIBC % Saturation Transferrin C-Reactive Protein Total Protein Albumin Urine Protein Urine Blood Ur Leukocyte Esterase Urine RBC Urine WBC Urine WBC Clumps Calcium Oxalate Crystal Cystine Crystals Urine Bacteria Urine Mucus Urine Yeast (Budding) 03/15/23 03/16/23 03/16/23 11:35 17:17 20:18 WBC RBC Hgb Hct MCH MCHC RDW Plt Count Immature Gran # Neutrophils # Lymphocytes # Monocytes # Eosinophils # Acanthocytes (Spur) PT INR ABG pH ABG pO2 ABG HCO3 ABG Total CO2 ABG O2 Saturation Sodium Potassium Chloride Carbon Dioxide BUN Creatinine BUN/Creatinine Ratio Glucose POC Glucose (mg/dL) 115 H 117 H 116 H Hemoglobin A1c Calcium Iron TIBC % Saturation Transferrin C-Reactive Protein Total Protein Albumin Urine Protein Urine Blood Ur Leukocyte Esterase Urine RBC Urine WBC Urine WBC Clumps Calcium Oxalate Crystal Cystine Crystals Urine Bacteria Urine Mucus Urine Yeast (Budding) 03/17/23 03/17/23 03/17/23 06:05 06:44 07:09 WBC RBC Hgb Hct MCH MCHC RDW Plt Count Immature Gran # Neutrophils # Lymphocytes # Monocytes # Eosinophils # Acanthocytes (Spur) PT 12.6 H INR 1.2 H ABG pH ABG pO2 ABG HCO3 ABG Total CO2 ABG O2 Saturation Sodium Potassium Chloride Carbon Dioxide BUN Creatinine BUN/Creatinine Ratio Glucose POC Glucose (mg/dL) 62 L 164 H Hemoglobin A1c Calcium Iron TIBC % Saturation Transferrin C-Reactive Protein Total Protein Albumin Urine Protein Urine Blood Ur Leukocyte Esterase Urine RBC Urine WBC Urine WBC Clumps Calcium Oxalate Crystal Cystine Crystals Urine Bacteria Urine Mucus Urine Yeast (Budding) 03/17/23 03/17/23 03/17/23 12:57 16:34 19:42 WBC RBC Hgb Hct MCH MCHC RDW Plt Count Immature Gran # Neutrophils # Lymphocytes # Monocytes # Eosinophils # Acanthocytes (Spur) PT INR ABG pH 7.48 H ABG pO2 57 L* ABG HCO3 28 H ABG Total CO2 29 H ABG O2 Saturation 89.8 L Sodium Potassium Chloride Carbon Dioxide BUN Creatinine BUN/Creatinine Ratio Glucose POC Glucose (mg/dL) 114 H 115 H Hemoglobin A1c Calcium Iron TIBC % Saturation Transferrin C-Reactive Protein Total Protein Albumin Urine Protein Urine Blood Ur Leukocyte Esterase Urine RBC Urine WBC Urine WBC Clumps Calcium Oxalate Crystal Cystine Crystals Urine Bacteria Urine Mucus Urine Yeast (Budding) 03/18/23 03/18/23 03/18/23 05:57 07:35 07:35 WBC RBC 3.17 L Hgb 8.6 L Hct 27.6 L MCH MCHC RDW 15.8 H Plt Count Immature Gran # Neutrophils # Lymphocytes # 0.9 L Monocytes # Eosinophils # Acanthocytes (Spur) PT 12.7 H INR 1.2 H ABG pH ABG pO2 ABG HCO3 ABG Total CO2 ABG O2 Saturation Sodium Potassium Chloride Carbon Dioxide BUN Creatinine BUN/Creatinine Ratio Glucose POC Glucose (mg/dL) 166 H Hemoglobin A1c Calcium Iron TIBC % Saturation Transferrin C-Reactive Protein Total Protein Albumin Urine Protein Urine Blood Ur Leukocyte Esterase Urine RBC Urine WBC Urine WBC Clumps Calcium Oxalate Crystal Cystine Crystals Urine Bacteria Urine Mucus Urine Yeast (Budding) 03/18/23 03/18/23 07:35 11:33 WBC RBC Hgb Hct MCH MCHC RDW Plt Count Immature Gran # Neutrophils # Lymphocytes # Monocytes # Eosinophils # Acanthocytes (Spur) PT INR ABG pH ABG pO2 ABG HCO3 ABG Total CO2 ABG O2 Saturation Sodium Potassium Chloride 112 H Carbon Dioxide BUN Creatinine BUN/Creatinine Ratio Glucose 157 H POC Glucose (mg/dL) 166 H Hemoglobin A1c Calcium 7.9 L Iron TIBC % Saturation Transferrin C-Reactive Protein Total Protein Albumin Urine Protein Urine Blood Ur Leukocyte Esterase Urine RBC Urine WBC Urine WBC Clumps Calcium Oxalate Crystal Cystine Crystals Urine Bacteria Urine Mucus Urine Yeast (Budding) Assessment and Plan Assessment: * Altered mental status, likely due to toxic metabolic encephalopathy. Reasons multifactorial as mentioned below. * History of mild dementia, which has got worse with current prolonged sickness and hospitalization. UTIs and hospitalization can produce a setback in dementia, may not improve to baseline. * Prolonged hospitalization * Generalized weakness, likely due to critical illness myopathy and deconditioning. * Abnormal brain MRI, with possibility of NPH. * Diabetic left heel ulcer, stage III with surrounding cellulitis * Acute UTI. Urine culture grew ESBL and Klebsiella * Paroxysmal atrial fibrillation on anticoagulation with Coumadin * Diabetes * Hypertension * Hyperlipidemia * Stage II sacral diabetes ulcer * Peripheral edema * Vitamin B12 and folate deficiency * Anemia Plan: * Patient has metabolic encephalopathy on top of his baseline mild dementia. * Recommend treatment of his medical conditions as per IM and other specialties. * MRI of the brain revealed possibility of NPH. At present patient has developed significant critical illness myopathy, generalized weakness and deconditioning. Patient does not appear to be ambulatory at this time and will need prolonged rehabilitation. If patient's memory functions, gait dysfunction persist, then patient's was recommended for patient to be evaluate for possible NPH. May follow up with neurosurgeon. At this time, there is no indication for further investigation for questionable NPH. * Start PT, OT for critical illness myopathy. * Patient's B12 387 on 03/04/2023. Folate 4.90. We will start B12 and folate replacement. * Dr. Marcos Brooks will resume neurology service in the morning. Thank you for the consult. Time with Patient: Greater than 30
[2023-03-19 06:16] LABS: Glucose,Whole Blood 128 mg/dL (70-110)
[2023-03-19] MEDS: CYANOCOBALAMIN 1,000 MCG/ML 1 ML VIAL IM SCH (09:51)
[2023-03-19] MEDS: FOLIC ACID 1 MG TAB PO SCH (09:51)
[2023-03-19 11:21] LABS: Glucose,Whole Blood 131 mg/dL (70-110)
--- NOTE | 2023-03-19 11:41 | P.PN ---
Subjective Progress Note Date: 03/19/23 Principal diagnosis: Reason for follow-up is left lower extremity cellulitis UTI and bacteremia Patient is a 78-year-old male with a past medical history significant for diabetes mellitus hypertension hyperlipidemia [place] patient was brought into the hospital from the local assisted concerning for elevated white count, patient did have a left hip ulceration noted to have a cellulitis to the left lower extremity also have a chronic indwelling Quezada catheter with a positive UA and blood cultures came back positive with gram-positive cocci. On today's evaluation that is 03/19/2023, the patient continues to be afebrile, the patient is on 4 L nasal cannula oxygen and breathing comfortably, the patient is more awake today and also question, denies having any chest pain or cough, the patient denies having any abdominal pain no vomiting or any diarrhea has been reported by the nursing staff Patient had normal white count of 8.2 as of yesterday creatinine 0.74 no labs today Objective - Vital Signs Vital signs: Vital Signs Temp 97.6 F 03/19/23 07:06 Pulse 79 03/19/23 07:06 Resp 19 03/19/23 07:06 BP 136/73 03/19/23 07:06 Pulse Ox 99 03/19/23 07:06 FiO2 40 03/17/23 16:11 Intake & Output 03/18/23 03/19/23 03/19/23 18:59 06:59 18:59 Intake Total 240 Output Total 200 Balance -200 240 Intake: Oral 240 Output: Urine 200 Other: Voiding Method Indwelling Catheter Indwelling Catheter - Exam GENERAL DESCRIPTION: An elderly male lying in bed in no distress RESPIRATORY SYSTEM: Unlabored breathing , decreased breath sounds at bases HEART: S1 S2 regular rate and rhythm , ABDOMEN: Soft , no tenderness EXTREMITIES: Right posterior heel with a stage II pressure ulcer minimal slough tissue no surrounding redness - Labs CBC & Chem 7: 03/18/23 07:35 03/18/23 07:35 Labs: Abnormal Lab Results - Last 24 Hours (Table) 03/18/23 03/18/23 03/19/23 Range/Units 16:32 19:38 06:15 POC Glucose (mg/dL) 207 H 169 H 128 H (70-110) mg/dL 03/19/23 Range/Units 11:20 POC Glucose (mg/dL) 131 H (70-110) mg/dL Assessment and Plan (1) Left leg cellulitis Current Visit: Yes Status: Acute Code(s): L03.116 - CELLULITIS OF LEFT LOWER LIMB SNOMED Code(s): 49974809639878293 (2) UTI (urinary tract infection) Current Visit: Yes Status: Acute Code(s): N39.0 - URINARY TRACT INFECTION, SITE NOT SPECIFIED SNOMED Code(s): 78418879 (3) Positive blood culture Current Visit: Yes Status: Acute Code(s): R78.81 - BACTEREMIA SNOMED Code(s): 109486009 (4) Leukocytosis Current Visit: Yes Status: Acute Code(s): D72.829 - ELEVATED WHITE BLOOD CELL COUNT, UNSPECIFIED SNOMED Code(s): 190867771 (5) Ulcer of left foot Current Visit: No Status: Acute Code(s): L97.529 - NON-PRESSURE CHRONIC ULCER OTH PRT LEFT FOOT W UNSP SEVERITY SNOMED Code(s): 671103565 Plan: 1patient presented to the hospital with elevated white count with initial concern for possible left heel ulcer and cellulitis however the patient also have a positive UA and there was concern for catheter associated UTI 2positive blood culture 2 out of 2 staph epi question of contamination, repeat blood culture has been negative, vancomycin has been discontinued 3-patient local wound care to the right posterior heel wound with the Santyl followed by moist dressing keep the area of the pressure 4-positive urine culture ESBL Klebsiella, ultrasound of the kidney bladder did not show any abscess or obstructive uropathy 5patient mentation remains to be an issue MRI did not show any acute stroke, neurology is following the patient 6-patient received about 2 weeks of antibiotic therapy for his underlying ESBL Klebsiella UTI in the form of meropenem followed by Invanz and should be more than enough, will discontinue Invanz and monitor the patient closely off antibiotic therapy at the bedside questions answered Dictation was produced using [employer] dictation software. please excuse any grammatical, word or spelling errors. Time with Patient: Less than 30
--- NOTE | 2023-03-19 12:09 | P.PN ---
Subjective Progress Note Date: 03/19/23 78-year-old male with a known history of coronary artery disease status post stent placement, atrial fibrillation on anticoagulation with Coumadin, hypertension, diabetes type 2 insulin-dependent, hyperlipidemia, COPD, gout and dementia who is currently at halfway was sent to hospital due to worsening leukocytosis. Patient discharged from hospital recently on 02/09/2023 after treatment for left heel diabetic foot ulcer and surrounding cellulitis. Patient does have indwelling Quezada catheter. Cognitive impairment and could not provide much history. Patient's daughter is at bedside. Otherwise patient does not have any fever or chills. Denies any abdominal pain. No nausea vomiting or diarrhea. Chest x-ray showed no acute cardiopulmonary process/disease. Ankle x-ray showed 7 mm ossific density at the distal Achilles tendon on with mild thickening. Consider chronic insertional tendinopathy. Sequela of old injury to the medial malleolus. No vaughn lytic destruction identified to clearly indicate osteomyelitis. Laboratory data showed WBC 22.0 hemoglobin 13.0 and platelets 284 Sodium 136 potassium 3.9 chloride 97 bicarb is 31 BUN 60 and creatinine 1.68 and blood sugar 197. Liver enzymes are not elevated. Albumin 3.4 Urinalysis showed large leukocyte esterase nitrite positive with elevated WBCs 13 and occasional bacteria. Influenza A, B, RSV and COVID-19 PCR not detected. Recent urine cultures from 02/25/2023 showed gram-negative bacilli. 03/01/2023 Patient is lying in the bed. Awake alert and oriented x 1-2. Mentation is at baseline. Currently patient is room air. No complaints of leg pain. Patient does have indwelling Quezada catheter. Blood cultures showed gram- positive cocci and patient was started on vancomycin. Urine culture is pending. Patient has been afebrile. Wound care is following Patient remains on broad-spectrum antibiotics. ID is on board. Laboratory data showed WBC trending down to 22.0 hemoglobin 13.0 and platelets 284. Sodium 136 potassium 3.9 chloride 97 bicarb is 31 BUN 16 creatinine 1.68 and blood sugar 197. Urinalysis showed large leukocyte esterase with elevated WBC count. Patient does have chronic indwelling Quezada catheter. 03/02/2023 Patient is currently resting in the bed. Awake alert and mentation is at baseline.. Currently on room air. The patient has been afebrile. No complaints of chest pain or shortness of breath. No nausea vomiting or diarrhea noted. Patient is being continued on vancomycin due to gram-positive bacteremia. Turnout to be coagulase-negative staph. Antibiotics otherwise changed to Unasyn as per ID recommendations. Repeat urinalysis was ordered. Initial urine culture is showing gram-negative bacilli. ID is on board. 03/03/2023 Patient is mildly confused especially about time, he knows he is in hospital in [place] and he couldn't tell the name of the president He is admitted with left leg cellulitis and currently is covered with IV vancomycin and Unasyn No wound culture There was suspicion of UTI and urine culture is growing gram-negative bacilli He has positive blood culture 2 suspicious for contamination versus infection. No heart murmur is heard No evidence of bleeding. However his INR still high 4.0 today, hemoglobin went down to 11.4 down to 9.8 Going to repeat hemoglobin tonight and do anemia workup. C2 this morning and Levemir 15 units lower to 12 units 03/04/2039 Patient today is confused, mildly agitated but followed commands, looks somewhat upset and sleepy from pain medication Spell been treated for his left leg cellulitis and acute urinary tract infection Urine culture growing ESBL Klebsiella and his Unasyn was switched to meropenem based on sensitivity and continued with IV vancomycin for his left leg cellulitis Hemoglobin is stable at 10, repeat INR is pending today. Leukocytosis is improving to 16.6. His last fever 100.3 today. Blood culture shows staph epidermidis Anemia workup as ordered and is pending Discussed with staff and bedside nurse 03/05/2023 Patient still very weak and lethargic, distal also encephalopathic kind confused, he does not answer a lot of question and follow-up, only at certain times indicate in his delirium on the top of his encephalopathy. Most likely related to his sepsis from his left leg cellulitis and Urinary tract infection related to Quezada catheter. Urine culture is growing ESBL Klebsiella, and he is currently covered with IV meropenem, IV vancomycin was stopped. Patient probably will need IV antibiotics upon discharge we checked renal ultrasound today which was negative for obstructive uropathy given his significant infection Also patient INR is 3.5. Hemoglobin 8.5. 03/06/2023 Patient more confused and lethargic today, he does not answers my questions or follow commands, his mentation also reported to be worse by family doctor daughter today. His aneurysm was 3.5, repeat INR today is still pending, going to order CT of the brain to rule out hemorrhage. His been treated also with meropenem for his left leg cellulitis, with leg looks less red ,s till warm, mild swelling , no much tenderness also has been treated for UTI with Quezada catheter in place. Culture is growing ESBL Klebsiella. Also for bacteremia with possible contamination. Patient still not eaten much, glucose controlled after we lowered his Levemir 10 units. Also his hands well and therefore we going to switch his fluid #75 mL down to D5 normal saline at 50 mL/h with close monitoring Today I talked to the daughter Gabriella [phone] per her request, all her questions were answered and I discussed the case with her updating her about this problem and management plan and she verbalized understanding and acceptance 03/07/2023 Patient awake still slow to answer questions. He still looks somewhat confused and he got agitation at time at bedside and states that he has dementia more than 6 years which is slowly progressive and may be contributing to his slow recovery. He denies specific symptoms. No chest pain or dyspnea. He is afebrile and hemodynamically stable. Leukocytosis back to normal today 15.1 down to 9.8. Hemoglobin stable 9.6. INR 3.0 and patient is going to 1 mg of warfarin tonight. BNP is unremarkable. Patient remains on meropenem with the plan for outpatient IV antibiotic. His home dose of insulin 15 units lower to 10 units because patient was not eating much because of his infection and mental status. Glucose currently controlled 03/08/2023 Patient remains confused and agitated at times. It could be part of his worsening dementia as per at bedside for more than 5-6 years complicated by his infection and sepsis and metabolic encephalopathy. He is getting Seroquel and Haldol when necessary. He remains treated for UTI with ESBL Klebsiella with meropenem and lower extremity cellulitis and he is improving regarding this. Currently he is afebrile and leukocytosis back to normal at 9.9. Hemoglobin stable 8.4. INR 3.4 and 14 minutes and hold for now. His sodium come back elevated at 154 (result came back late) so started patient on D5W at 75 mm/h with close monitoring of solid 03/12/2023 Patient today was awake alert, calm but when I talked to him he agreed to answer me he told me he is in [facility], the date of the name of the president. He has inside after his illness with limitation. However his mentation almost close or back to baseline. at bedside. She agrees with his improvement. Patient is taking his oral medication. He remains on IV antibiotics and is proven Plan is to obtain PICC line tomorrow for IV antibiotics upon discharge per ID team recommendation. 03/13/2023 Patient mentation is stable, at baseline. With a bit more sleepy than usual. However easily arousable. Follow commands. No new complaints. Patient could not get the PICC line today for IV antibiotics upon discharge because of the INR jumped up 5.3 although he was receiving 1 mg of warfarin daily over the last 3 days. Vitamin K by mouth is ordered 1 however it was not given. Repeat INR back to a lower level at 3.9. No evidence of bleeding. We'll keep monitoring. Still pending PICC line placement Remains on IV InVance 03/14/2023 Patient awake and alert but staying in bed, looks lethargic. He denies specific complaint This pending PICC line placement which is on hold because of high INR 3.6 today. Going to give one-time dose of oral vitamin K 2.5 mg on hold Coumadin tonight, already discussed with staff. Patient will be discharged on IV antibiotics for his ESBL Klebsiella and left leg cellulitis which are improving. Quezada catheter in place Patient refused to take his oral medication yesterday and I talked to him and he to come Today he is still refuses his medication this morning. Also patient was not eat ing for the last 5-6 days. Patient denies specific complaints or choking. I talked to the patient and encouraged him to 8 with chest benefits explained for him and he agrees to start eating again. Patient already by psychiatrist and medications were adjusted previously. We'll ask for swallow evaluation. at bedside and perform patient declines PEG tube placement if needed. 03/15/2023 Patient is sleeping most of the day, he got [place] 10 mg today. Today's INR 1.3 and PICC line could be placed. He remains on Invanz for now Patient is refusing pills and diet. He took his morning pills. We will try to give him Coumadin 6 mg tonight and check INR tomorrow We encourage patient to eat he agrees but then is not really eating This could be due to a lot of narcotics and sedatives therefore we stopped [place] 10 mg, [place] gabapentin 200 mg 3 times a day down 200 mg 3 times a day. Also we lowered his BuSpar 50 mg down to 10 mg daily. 2: We kept the patient on Seroquel scheduled AND when necessary for possible agitation as we expected to be more agitated related to his dementia at bedside as I didn't her with the plan and she is agreeable Patient already seen by psychiatry during this admission 03/16/2023 Patient remains very lethargic, awake alert but minimal interactive, he answers questions slowly and sometimes does not answer. His refusing his medication but sometimes taken after talking to him Patient has not been starts eating despite several attempts to convince him. We stopped many of the sedative yesterday like [place] 10 and/or the dose of gabapentin and BuSpar but patient did not show improvement also is not taking a lot of his oral medication anyway We will do an MRI of the brain without contrast today Family has been refusing PEG tube before, PICC line in a Place which she gets antibiotic Invanz for now INR today is 1.1. He got Coumadin 1 mg last night continue with Coumadin pharmacy to dose check labs and ammonia level we'll continue monitoring 03/17/2023 Patient today was still confused her to awaken after he received Ativan yesterday. Also he was not is mildly tachypneic, ABG showing hypoxia. He was placed on oxygen treatment and BiPAP for short time. Repeat chest x-ray is ordered He remains on Invanz Patient also has PICC line, dietary consult was placed for possible TPN Also we will consult neurology service today for possible EEG and no improvement in his mentation however patient has no seizure-like activity. He received Coumadin and his INR started going up 1.2 today. After it was held for PICC line placement Family at bedside and discussed management plan with her and she is agreeable 03/18/23 Patient started waking up more today, his more, and interactive and he agrees to start eating after we lowered his BuSpar down to 10 mg and gabapentin 200 mg down 200 mg twice a day We'll try to limit use of sedatives and hepatitic Chest x-ray reviewed and looks unremarkable for acute process and breathing is improved back to baseline. No respiratory symptoms. No other new complaints Neurology input is appreciated for his altered mental status Patient has PICC line If his start eating may be considered for discharge in 24-4 hours if he keeps improving Plan discussed with the patient in details and at bedside and they're in agreement Currently On Invanz 03/19/2023:DR MARCELO ASSUMED CARE Patient seen and evaluated bedside, patient was angry and refusing medication, and daughter at bedside as well. Blood work reviewed, seen by infectious disease patient received IV antibiotics including meropenem followed by Invanz antibiotics discontinued. Continue with wound care will need discharge to subacute rehab GENERAL: The patient is alert and oriented x3 ill appearance, uncooperative, nasal cannula in place HEENT: Pupils are round and equally reacting to light. EOMI. CARDIOVASCULAR: S1 and S2 present. No murmurs, rubs, or gallops. PULMONARY: Chest is clear to auscultation, no wheezing , no crackles. ABDOMEN: Soft, nontender, nondistended, normoactive bowel sounds. No palpable organomegaly. MUSCULOSKELETAL: No joint swelling or deformity. EXTREMITIES:. Left lower extremity erythema improved NEUROLOGICAL: Gross neurological examination did not reveal any focal deficits. SKIN: Left foot bandage Objective - Vital Signs Vital signs: Vital Signs Temp 97.6 F 03/19/23 07:06 Pulse 79 03/19/23 07:06 Resp 19 03/19/23 07:06 BP 136/73 03/19/23 07:06 Pulse Ox 99 03/19/23 07:06 FiO2 40 03/17/23 16:11 Intake & Output 03/18/23 03/19/23 03/19/23 18:59 06:59 18:59 Intake Total 240 Output Total 200 Balance -200 240 Intake: Oral 240 Output: Urine 200 Other: Voiding Method Indwelling Catheter Indwelling Catheter - Labs CBC & Chem 7: 03/18/23 07:35 03/18/23 07:35 Labs: Abnormal Lab Results - Last 24 Hours (Table) 03/18/23 03/18/23 03/19/23 Range/Units 16:32 19:38 06:15 POC Glucose (mg/dL) 207 H 169 H 128 H (70-110) mg/dL 03/19/23 Range/Units 11:20 POC Glucose (mg/dL) 131 H (70-110) mg/dL Assessment and Plan Assessment: Assessment and plan Acute hypoxic respiratory failure diabetic left heel ulcer stage 3 with surrounding cellulitis . urinary tract infection. Urine culture: ESBL Klebsiella. Patient has indwelling Quezada catheter. UTI related to Quezada catheter Coagulopathy secondary to high INR RESOLVED Hypernatremia RESOLVED Anemia Paroxysmal atrial fibrillation on anticoagulation with Coumadin Acute kidney injury likely prerenal creatinine 1.68 and baseline 1.1 IMPROVED Generalized weakness and unable to ambulate without support. Hypoglycemia with uncontrolled diabetes type 2 insulin-dependent Coronary arteries with history of stent placement Hypertension Hyperlipidemia Dementia/cognitive impairment Stage II sacral decub ulcers. Plan: * Seen by neurology, continue current management, no further workup ordered, vitamin B supplementation * In regards to infection, completed Invanz appropriately treated * In regards to malnutrition, encourage oral intake * In regards to diabetes mellitus Accu-Cheks ACHS, continue correctional insulin, continue Lantus * Labs and medication were reviewed. * Further recommendations as per clinical course of the patient * DVT prophylaxis: on Coumadin
[2023-03-19 16:41] LABS: Glucose,Whole Blood 187 mg/dL (70-110)
[2023-03-19 19:02] LABS: INR 1.1 (<1.2); Prothrombin Time 12.2 sec (10.0-12.5)
--- NOTE | 2023-03-19 19:37 | P.PN ---
Subjective Progress Note Date: 03/19/23 I am seeing the patient for the first time during this admission. Please refer to Dr. Alejandra notes for further details. Seems the patient has altered mental status likely due to toxic metabolic encephalopathy. Patient has acute UTI with ESBL and klebsiella. On the MRI shows the possibility of NPH. According to the nurse at times he'll get agitated. Objective - Vital Signs Vital signs: Vital Signs Temp 98.0 F 03/19/23 13:15 Pulse 76 03/19/23 13:15 Resp 19 03/19/23 13:15 BP 131/65 03/19/23 13:15 Pulse Ox 96 03/19/23 13:15 FiO2 40 03/17/23 16:11 Intake & Output 03/19/23 03/19/23 03/20/23 06:59 18:59 06:59 Intake Total 240 Output Total 700 Balance 240 -700 Weight 95.254 kg Intake: Oral 240 Output: Urine 700 Other: Voiding Method Indwelling Catheter Indwelling Catheter # Bowel Movements 1 - Exam General: Lying in bed and does not appear in acute distress. Neuro: Limited. Patient was sleeping and very briefly awakeable to voice. He followed on simple commands showing, thumbs up. No facial weakness. - Labs CBC & Chem 7: 03/18/23 07:35 03/18/23 07:35 Labs: Abnormal Lab Results - Last 24 Hours (Table) 03/18/23 03/19/23 03/19/23 Range/Units 19:38 06:15 11:20 POC Glucose (mg/dL) 169 H 128 H 131 H (70-110) mg/dL 03/19/23 Range/Units 16:39 POC Glucose (mg/dL) 187 H (70-110) mg/dL Assessment and Plan Assessment: * Altered mental status, likely due to toxic metabolic encephalopathy. Reasons multifactorial as mentioned below. * History of mild dementia, which has got worse with current prolonged sickness and hospitalization. UTIs and hospitalization can produce a setback in dementia, may not improve to baseline. * Prolonged hospitalization * Generalized weakness, likely due to critical illness myopathy and deconditioning. * Abnormal brain MRI, with possibility of NPH. * Diabetic left heel ulcer, stage III with surrounding cellulitis * Acute UTI. Urine culture grew ESBL and Klebsiella * Paroxysmal atrial fibrillation on anticoagulation with Coumadin * Diabetes * Hypertension * Hyperlipidemia * Stage II sacral diabetes ulcer * Peripheral edema * Vitamin B12 and folate deficiency * Anemia Plan: * Recommend treatment of his medical conditions as per IM and other specialties. * MRI of the brain revealed possibility of NPH. At present patient has developed significant critical illness myopathy, generalized weakness and deconditioning. Patient does not appear to be ambulatory at this time and will need prolonged rehabilitation. If patient's memory functions, gait dysfunction persist, then patient's was recommended for patient to be evaluate for possible NPH. May follow up with neurosurgeon. At this time, there is no indication for further investigation for questionable NPH. * Start PT, OT for critical illness myopathy. * Patient's B12 387 on 03/04/2023. Folate 4.90. Continue B12 and folate replacement. * Upon discharge, recommend the patient to follow-up with neurologist within 2-3 weeks The plan is discussed with patient's nurse. Will follow-up with patient sporadically. Time with Patient: Less than 30
[2023-03-19 20:31] LABS: Glucose,Whole Blood 156 mg/dL (70-110)
[2023-03-19] MEDS: WARFARIN 2 MG TAB PO ONE (21:53)
[2023-03-20 05:54] LABS: Glucose,Whole Blood 100 mg/dL (70-110)
[2023-03-20 06:38] LABS: INR 1.2 (<1.2); Prothrombin Time 13.1 sec (10.0-12.5)
[2023-03-20 11:27] LABS: BUN/Creat Ratio 12.67 Ratio (12.00-20.00); Blood Urea Nitrogen 7.6 mg/dL (9.0-27.0); Calcium 8.1 mg/dL (8.7-10.3); Carbon Dioxide 28.7 mmol/L (21.6-31.8); Chloride 111 mmol/L (96-109); Glucose 88 mg/dL (70-110); Potassium 3.7 mmol/L (3.5-5.5); Sodium 147 mmol/L (135-145)
[2023-03-20 11:59] LABS: Glucose,Whole Blood 111 mg/dL (70-110)
--- NOTE | 2023-03-20 12:20 | P.PN ---
Subjective Progress Note Date: 03/20/23 78-year-old male with a known history of coronary artery disease status post stent placement, atrial fibrillation on anticoagulation with Coumadin, hypertension, diabetes type 2 insulin-dependent, hyperlipidemia, COPD, gout and dementia who is currently at snf was sent to hospital due to worsening leukocytosis. Patient discharged from hospital recently on 02/09/2023 after treatment for left heel diabetic foot ulcer and surrounding cellulitis. Patient does have indwelling Quezada catheter. Cognitive impairment and could not provide much history. Patient's daughter is at bedside. Otherwise patient does not have any fever or chills. Denies any abdominal pain. No nausea vomiting or diarrhea. Chest x-ray showed no acute cardiopulmonary process/disease. Ankle x-ray showed 7 mm ossific density at the distal Achilles tendon on with mild thickening. Consider chronic insertional tendinopathy. Sequela of old injury to the medial malleolus. No vaughn lytic destruction identified to clearly indicate osteomyelitis. Laboratory data showed WBC 22.0 hemoglobin 13.0 and platelets 284 Sodium 136 potassium 3.9 chloride 97 bicarb is 31 BUN 60 and creatinine 1.68 and blood sugar 197. Liver enzymes are not elevated. Albumin 3.4 Urinalysis showed large leukocyte esterase nitrite positive with elevated WBCs 13 and occasional bacteria. Influenza A, B, RSV and COVID-19 PCR not detected. Recent urine cultures from 02/25/2023 showed gram-negative bacilli. 03/01/2023 Patient is lying in the bed. Awake alert and oriented x 1-2. Mentation is at baseline. Currently patient is room air. No complaints of leg pain. Patient does have indwelling Quezada catheter. Blood cultures showed gram- positive cocci and patient was started on vancomycin. Urine culture is pending. Patient has been afebrile. Wound care is following Patient remains on broad-spectrum antibiotics. ID is on board. Laboratory data showed WBC trending down to 22.0 hemoglobin 13.0 and platelets 284. Sodium 136 potassium 3.9 chloride 97 bicarb is 31 BUN 16 creatinine 1.68 and blood sugar 197. Urinalysis showed large leukocyte esterase with elevated WBC count. Patient does have chronic indwelling Quezada catheter. 03/02/2023 Patient is currently resting in the bed. Awake alert and mentation is at baseline.. Currently on room air. The patient has been afebrile. No complaints of chest pain or shortness of breath. No nausea vomiting or diarrhea noted. Patient is being continued on vancomycin due to gram-positive bacteremia. Turnout to be coagulase-negative staph. Antibiotics otherwise changed to Unasyn as per ID recommendations. Repeat urinalysis was ordered. Initial urine culture is showing gram-negative bacilli. ID is on board. 03/03/2023 Patient is mildly confused especially about time, he knows he is in hospital in [place] and he couldn't tell the name of the president He is admitted with left leg cellulitis and currently is covered with IV vancomycin and Unasyn No wound culture There was suspicion of UTI and urine culture is growing gram-negative bacilli He has positive blood culture 2 suspicious for contamination versus infection. No heart murmur is heard No evidence of bleeding. However his INR still high 4.0 today, hemoglobin went down to 11.4 down to 9.8 Going to repeat hemoglobin tonight and do anemia workup. C2 this morning and Levemir 15 units lower to 12 units 03/04/2039 Patient today is confused, mildly agitated but followed commands, looks somewhat upset and sleepy from pain medication Spell been treated for his left leg cellulitis and acute urinary tract infection Urine culture growing ESBL Klebsiella and his Unasyn was switched to meropenem based on sensitivity and continued with IV vancomycin for his left leg cellulitis Hemoglobin is stable at 10, repeat INR is pending today. Leukocytosis is improving to 16.6. His last fever 100.3 today. Blood culture shows staph epidermidis Anemia workup as ordered and is pending Discussed with staff and bedside nurse 03/05/2023 Patient still very weak and lethargic, distal also encephalopathic kind confused, he does not answer a lot of question and follow-up, only at certain times indicate in his delirium on the top of his encephalopathy. Most likely related to his sepsis from his left leg cellulitis and Urinary tract infection related to Quezada catheter. Urine culture is growing ESBL Klebsiella, and he is currently covered with IV meropenem, IV vancomycin was stopped. Patient probably will need IV antibiotics upon discharge we checked renal ultrasound today which was negative for obstructive uropathy given his significant infection Also patient INR is 3.5. Hemoglobin 8.5. 03/06/2023 Patient more confused and lethargic today, he does not answers my questions or follow commands, his mentation also reported to be worse by family doctor daughter today. His aneurysm was 3.5, repeat INR today is still pending, going to order CT of the brain to rule out hemorrhage. His been treated also with meropenem for his left leg cellulitis, with leg looks less red ,s till warm, mild swelling , no much tenderness also has been treated for UTI with Quezada catheter in place. Culture is growing ESBL Klebsiella. Also for bacteremia with possible contamination. Patient still not eaten much, glucose controlled after we lowered his Levemir 10 units. Also his hands well and therefore we going to switch his fluid #75 mL down to D5 normal saline at 50 mL/h with close monitoring Today I talked to the daughter Gabriella [phone] per her request, all her questions were answered and I discussed the case with her updating her about this problem and management plan and she verbalized understanding and acceptance 03/07/2023 Patient awake still slow to answer questions. He still looks somewhat confused and he got agitation at time at bedside and states that he has dementia more than 6 years which is slowly progressive and may be contributing to his slow recovery. He denies specific symptoms. No chest pain or dyspnea. He is afebrile and hemodynamically stable. Leukocytosis back to normal today 15.1 down to 9.8. Hemoglobin stable 9.6. INR 3.0 and patient is going to 1 mg of warfarin tonight. BNP is unremarkable. Patient remains on meropenem with the plan for outpatient IV antibiotic. His home dose of insulin 15 units lower to 10 units because patient was not eating much because of his infection and mental status. Glucose currently controlled 03/08/2023 Patient remains confused and agitated at times. It could be part of his worsening dementia as per at bedside for more than 5-6 years complicated by his infection and sepsis and metabolic encephalopathy. He is getting Seroquel and Haldol when necessary. He remains treated for UTI with ESBL Klebsiella with meropenem and lower extremity cellulitis and he is improving regarding this. Currently he is afebrile and leukocytosis back to normal at 9.9. Hemoglobin stable 8.4. INR 3.4 and 14 minutes and hold for now. His sodium come back elevated at 154 (result came back late) so started patient on D5W at 75 mm/h with close monitoring of solid 03/12/2023 Patient today was awake alert, calm but when I talked to him he agreed to answer me he told me he is in [facility], the date of the name of the president. He has inside after his illness with limitation. However his mentation almost close or back to baseline. at bedside. She agrees with his improvement. Patient is taking his oral medication. He remains on IV antibiotics and is proven Plan is to obtain PICC line tomorrow for IV antibiotics upon discharge per ID team recommendation. 03/13/2023 Patient mentation is stable, at baseline. With a bit more sleepy than usual. However easily arousable. Follow commands. No new complaints. Patient could not get the PICC line today for IV antibiotics upon discharge because of the INR jumped up 5.3 although he was receiving 1 mg of warfarin daily over the last 3 days. Vitamin K by mouth is ordered 1 however it was not given. Repeat INR back to a lower level at 3.9. No evidence of bleeding. We'll keep monitoring. Still pending PICC line placement Remains on IV InVance 03/14/2023 Patient awake and alert but staying in bed, looks lethargic. He denies specific complaint This pending PICC line placement which is on hold because of high INR 3.6 today. Going to give one-time dose of oral vitamin K 2.5 mg on hold Coumadin tonight, already discussed with staff. Patient will be discharged on IV antibiotics for his ESBL Klebsiella and left leg cellulitis which are improving. Quezada catheter in place Patient refused to take his oral medication yesterday and I talked to him and he to come Today he is still refuses his medication this morning. Also patient was not eat ing for the last 5-6 days. Patient denies specific complaints or choking. I talked to the patient and encouraged him to 8 with chest benefits explained for him and he agrees to start eating again. Patient already by psychiatrist and medications were adjusted previously. We'll ask for swallow evaluation. at bedside and perform patient declines PEG tube placement if needed. 03/15/2023 Patient is sleeping most of the day, he got [place] 10 mg today. Today's INR 1.3 and PICC line could be placed. He remains on Invanz for now Patient is refusing pills and diet. He took his morning pills. We will try to give him Coumadin 6 mg tonight and check INR tomorrow We encourage patient to eat he agrees but then is not really eating This could be due to a lot of narcotics and sedatives therefore we stopped [place] 10 mg, [place] gabapentin 200 mg 3 times a day down 200 mg 3 times a day. Also we lowered his BuSpar 50 mg down to 10 mg daily. 2: We kept the patient on Seroquel scheduled AND when necessary for possible agitation as we expected to be more agitated related to his dementia at bedside as I didn't her with the plan and she is agreeable Patient already seen by psychiatry during this admission 03/16/2023 Patient remains very lethargic, awake alert but minimal interactive, he answers questions slowly and sometimes does not answer. His refusing his medication but sometimes taken after talking to him Patient has not been starts eating despite several attempts to convince him. We stopped many of the sedative yesterday like [place] 10 and/or the dose of gabapentin and BuSpar but patient did not show improvement also is not taking a lot of his oral medication anyway We will do an MRI of the brain without contrast today Family has been refusing PEG tube before, PICC line in a Place which she gets antibiotic Invanz for now INR today is 1.1. He got Coumadin 1 mg last night continue with Coumadin pharmacy to dose check labs and ammonia level we'll continue monitoring 03/17/2023 Patient today was still confused her to awaken after he received Ativan yesterday. Also he was not is mildly tachypneic, ABG showing hypoxia. He was placed on oxygen treatment and BiPAP for short time. Repeat chest x-ray is ordered He remains on Invanz Patient also has PICC line, dietary consult was placed for possible TPN Also we will consult neurology service today for possible EEG and no improvement in his mentation however patient has no seizure-like activity. He received Coumadin and his INR started going up 1.2 today. After it was held for PICC line placement Family at bedside and discussed management plan with her and she is agreeable 03/18/23 Patient started waking up more today, his more, and interactive and he agrees to start eating after we lowered his BuSpar down to 10 mg and gabapentin 200 mg down 200 mg twice a day We'll try to limit use of sedatives and hepatitic Chest x-ray reviewed and looks unremarkable for acute process and breathing is improved back to baseline. No respiratory symptoms. No other new complaints Neurology input is appreciated for his altered mental status Patient has PICC line If his start eating may be considered for discharge in 24-4 hours if he keeps improving Plan discussed with the patient in details and at bedside and they're in agreement Currently On Invanz 03/19/2023:DR MARCELO ASSUMED CARE Patient seen and evaluated bedside, patient was angry and refusing medication, and daughter at bedside as well. Blood work reviewed, seen by infectious disease patient received IV antibiotics including meropenem followed by Shyla antibiotics discontinued. Continue with wound care will need discharge to subacute rehab 03/20/2023: Patient seen and evaluated at bedside, patient is awake and alert did take his medications, follow-up on INR levels. Antibiotic course completed sodium levels 147, started on D5, 0.45. Follow-up on basic metabolic panel GENERAL: The patient is alert and oriented x3 ill appearance, uncooperative, nasal cannula in place HEENT: Pupils are round and equally reacting to light. EOMI. CARDIOVASCULAR: S1 and S2 present. No murmurs, rubs, or gallops. PULMONARY: Chest is clear to auscultation, no wheezing , no crackles. ABDOMEN: Soft, nontender, nondistended, normoactive bowel sounds. No palpable organomegaly. MUSCULOSKELETAL: No joint swelling or deformity. EXTREMITIES:. Left lower extremity erythema improved NEUROLOGICAL: Gross neurological examination did not reveal any focal deficits. SKIN: Left foot bandage Objective - Vital Signs Vital signs: Vital Signs Temp 98.2 F 03/20/23 07:36 Pulse 80 03/20/23 11:15 Resp 17 03/20/23 11:15 BP 138/74 03/20/23 11:15 Pulse Ox 100 03/20/23 11:15 FiO2 40 03/17/23 16:11 Intake & Output 03/19/23 03/20/23 03/20/23 18:59 06:59 18:59 Intake Total 420 Output Total 700 600 Balance -700 -180 Weight 95.254 kg Intake: Oral 420 Output: Urine 700 600 Other: Voiding Method Indwelling Catheter Indwelling Catheter Indwelling Catheter # Bowel Movements 1 - Labs CBC & Chem 7: 03/18/23 07:35 03/20/23 06:02 Labs: Abnormal Lab Results - Last 24 Hours (Table) 03/19/23 03/19/23 03/20/23 Range/Units 16:39 20:24 06:02 PT 13.1 H (10.0-12.5) sec INR 1.2 H (<1.2) Sodium (135-145) mmol/L Chloride (96-109) mmol/L BUN (9.0-27.0) mg/dL POC Glucose (mg/dL) 187 H 156 H (70-110) mg/dL Calcium (8.7-10.3) mg/dL 03/20/23 03/20/23 Range/Units 06:02 11:52 PT (10.0-12.5) sec INR (<1.2) Sodium 147 H (135-145) mmol/L Chloride 111 H (96-109) mmol/L BUN 7.6 L (9.0-27.0) mg/dL POC Glucose (mg/dL) 111 H (70-110) mg/dL Calcium 8.1 L (8.7-10.3) mg/dL Assessment and Plan Assessment: Assessment and plan Acute hypoxic respiratory failure Diabetic left heel ulcer stage 3 with surrounding cellulitis . urinary tract infection. Urine culture: ESBL Klebsiella. Patient has indwelling Quezada catheter. UTI related to Quezada catheter Coagulopathy secondary to high INR RESOLVED Hypernatremia RESOLVED Anemia Paroxysmal atrial fibrillation on anticoagulation with Coumadin Acute kidney injury likely prerenal creatinine 1.68 and baseline 1.1 IMPROVED Generalized weakness and unable to ambulate without support. Hypoglycemia with uncontrolled diabetes type 2 insulin-dependent Coronary arteries with history of stent placement Hypertension Hyperlipidemia Dementia/cognitive impairment Stage II sacral decub ulcers. Plan: * Seen by neurology, continue current management, no further workup ordered, vitamin B supplementation * In regards to infection, completed Invanz appropriately treated * In regards to hyponatremia patient started on D5.45 follow-up basic metabolic panel ordered * In regards to malnutrition, encourage oral intake * In regards to diabetes mellitus Accu-Cheks ACHS, continue correctional insulin, continue Lantus * Labs and medication were reviewed. * Further recommendations as per clinical course of the patient * DVT prophylaxis: on Coumadin Time with Patient: Greater than 30
--- NOTE | 2023-03-20 12:45 | P.PN ---
Subjective Progress Note Date: 03/20/23 Principal diagnosis: Reason for follow-up is left lower extremity cellulitis UTI and bacteremia Patient is a 78-year-old male with a past medical history significant for diabetes mellitus hypertension hyperlipidemia ND patient was brought into the hospital from the local assisted concerning for elevated white count, patient did have a left hip ulceration noted to have a cellulitis to the left lower extremity also have a chronic indwelling Quezada catheter with a positive UA and blood cultures came back positive with gram-positive cocci. On today's evaluation that is 03/20/2023, Patient is afebrile , patient is currently on 3 L nasal cannula oxygen and denies having any shortness of breath, the patient denies any chest pain did have some dry, the patient denies any nausea vomiting did not have any abdominal pain and no diarrhea. Patient INR 1.2, creatinine 0.6 Objective - Vital Signs Vital signs: Vital Signs Temp 98.2 F 03/20/23 07:36 Pulse 80 03/20/23 11:15 Resp 17 03/20/23 11:15 BP 138/74 03/20/23 11:15 Pulse Ox 100 03/20/23 11:15 FiO2 40 03/17/23 16:11 Intake & Output 03/19/23 03/20/23 03/20/23 18:59 06:59 18:59 Intake Total 420 Output Total 700 600 Balance -700 -180 Weight 95.254 kg Intake: Oral 420 Output: Urine 700 600 Other: Voiding Method Indwelling Catheter Indwelling Catheter Indwelling Catheter # Bowel Movements 1 - Exam GENERAL DESCRIPTION: An elderly male lying in bed in no distress RESPIRATORY SYSTEM: Unlabored breathing , decreased breath sounds at bases HEART: S1 S2 regular rate and rhythm , ABDOMEN: Soft , no tenderness EXTREMITIES: Right posterior heel with a stage II pressure ulcer minimal slough tissue no surrounding redness - Labs CBC & Chem 7: 03/18/23 07:35 03/20/23 06:02 Labs: Abnormal Lab Results - Last 24 Hours (Table) 03/19/23 03/19/23 03/20/23 Range/Units 16:39 20:24 06:02 PT 13.1 H (10.0-12.5) sec INR 1.2 H (<1.2) Sodium (135-145) mmol/L Chloride (96-109) mmol/L BUN (9.0-27.0) mg/dL POC Glucose (mg/dL) 187 H 156 H (70-110) mg/dL Calcium (8.7-10.3) mg/dL 03/20/23 03/20/23 Range/Units 06:02 11:52 PT (10.0-12.5) sec INR (<1.2) Sodium 147 H (135-145) mmol/L Chloride 111 H (96-109) mmol/L BUN 7.6 L (9.0-27.0) mg/dL POC Glucose (mg/dL) 111 H (70-110) mg/dL Calcium 8.1 L (8.7-10.3) mg/dL Assessment and Plan (1) Left leg cellulitis Current Visit: Yes Status: Acute Code(s): L03.116 - CELLULITIS OF LEFT LOWER LIMB SNOMED Code(s): 60046133308018695 (2) UTI (urinary tract infection) Current Visit: Yes Status: Acute Code(s): N39.0 - URINARY TRACT INFECTION, SITE NOT SPECIFIED SNOMED Code(s): 45572551 (3) Positive blood culture Current Visit: Yes Status: Acute Code(s): R78.81 - BACTEREMIA SNOMED Code(s): 215073291 (4) Leukocytosis Current Visit: Yes Status: Acute Code(s): D72.829 - ELEVATED WHITE BLOOD CELL COUNT, UNSPECIFIED SNOMED Code(s): 058837534 (5) Ulcer of left foot Current Visit: No Status: Acute Code(s): L97.529 - NON-PRESSURE CHRONIC ULCER OTH PRT LEFT FOOT W UNSP SEVERITY SNOMED Code(s): 211296375 Plan: 1patient presented to the hospital with elevated white count with initial concern for possible left heel ulcer and cellulitis however the patient also have a positive UA and there was concern for catheter associated UTI 2positive blood culture 2 out of 2 staph epi question of contamination, repeat blood culture has been negative, vancomycin has been discontinued 3-patient local wound care to the right posterior heel wound with the Santyl followed by moist dressing keep the area of the pressure 4-positive urine culture ESBL Klebsiella, ultrasound of the kidney bladder did not show any abscess or obstructive uropathy 5patient mentation remains to be an issue MRI did not show any acute stroke, neurology is following the patient 6-patient received about 2 weeks of antibiotic therapy for his underlying ESBL Klebsiella UTI in the form of meropenem followed by Shyla and should be more than enough, patient seem to be doing well off antibiotic therapy over the last 48 hours PICC line should be discontinued on discharge discussed with the nursing staff Dictation was produced using Submittable dictation software. please excuse any gramma tical, word or spelling errors. Time with Patient: Less than 30
[2023-03-20] MEDS: DEXTROSE 5%-0.45% NACL 1,000 ML IV SCH (12:52)
[2023-03-20 13:37] LABS: HCT 27.9 % (39.6-50.0); HGB 8.7 g/dL (13.0-17.0); MCH 28.1 pg (27.0-32.0); MCHC 31.2 g/dL (32.0-37.0); Mean Platelet Volume 9.9 FL (9.5-12.2); NRBC Per 100 WBC 0 X 10*3/uL (0.00-0.01); Platelet Count 401 X 10*3/uL (140-440); RDW 16.1 % (11.5-14.5); WBC 8.68 X 10*3/uL (4.50-10.00)
[2023-03-20 17:03] LABS: Glucose,Whole Blood 182 mg/dL (70-110)
[2023-03-20 19:46] LABS: Glucose,Whole Blood 165 mg/dL (70-110)
[2023-03-20] MEDS: WARFARIN 2 MG TAB PO ONE (21:55)
[2023-03-21 05:35] LABS: Glucose,Whole Blood 164 mg/dL (70-110)
[2023-03-21 07:43] LABS: INR 1.2 (<1.2); Prothrombin Time 13.2 sec (10.0-12.5)
[2023-03-21 11:08] LABS: MCHC 32.1 g/dL (32.0-37.0); MCV 90.3 FL (80.0-97.0); NRBC Per 100 WBC 0 X 10*3/uL (0.00-0.01); Platelet Count 400 X 10*3/uL (140-440); RDW 16.3 % (11.5-14.5); WBC 11.31 X 10*3/uL (4.50-10.00)
--- NOTE | 2023-03-21 11:36 | P.PN ---
Subjective Progress Note Date: 03/21/23 Principal diagnosis: Reason for follow-up is left lower extremity cellulitis UTI and bacteremia Patient is a 78-year-old male with a past medical history significant for diabetes mellitus hypertension hyperlipidemia AL patient was brought into the hospital from the local alf concerning for elevated white count, patient did have a left hip ulceration noted to have a cellulitis to the left lower extremity also have a chronic indwelling Quezada catheter with a positive UA and blood cultures came back positive with gram-positive cocci. On today's evaluation that is 03/21/2023,the patient has been afebrile, patient is breathing comfortably on room air, the patient apparently has been refusing his medication did not answer any question no vomiting or diarrhea has been noticed the patient has developed wound to the right medial thigh in the sacral area as reported by the nursing staff. Patient white count slightly up to 11.31 today INR is 1.2 Objective - Vital Signs Vital signs: Vital Signs Temp 98.7 F 03/21/23 08:00 Pulse 80 03/21/23 08:00 Resp 18 03/21/23 08:00 BP 156/69 03/21/23 08:00 Pulse Ox 93 L 03/21/23 08:00 FiO2 40 03/17/23 16:11 Intake & Output 03/20/23 03/21/23 03/21/23 18:59 06:59 18:59 Output Total 200 260 Balance -200 -260 Output: Urine 200 260 Uretheral (Quezada) 260 Other: Voiding Method Indwelling Catheter Indwelling Catheter Indwelling Catheter # Voids 1 # Bowel Movements 1 - Exam GENERAL DESCRIPTION: An elderly male lying in bed in no distress RESPIRATORY SYSTEM: Unlabored breathing , decreased breath sounds at bases HEART: S1 S2 regular rate and rhythm , ABDOMEN: Soft , no tenderness EXTREMITIES: Right posterior heel currently dressed no drainage on the dressing Patient did have a stage II sacral/left gluteal pressure ulcer with no ce llulitis, a wound to the right medial thigh with some slough tissue but no redness - Labs CBC & Chem 7: 03/21/23 07:17 03/20/23 06:02 Labs: Abnormal Lab Results - Last 24 Hours (Table) 03/20/23 03/20/23 03/20/23 Range/Units 06:02 11:52 16:59 WBC (4.50-10.00) X 10*3/uL RBC 3.10 L (4.40-5.60) X 10*6/uL Hgb 8.7 L (13.0-17.0) g/dL Hct 27.9 L (39.6-50.0) % MCHC 31.2 L (32.0-37.0) g/dL RDW 16.1 H (11.5-14.5) % PT (10.0-12.5) sec INR (<1.2) POC Glucose (mg/dL) 111 H 182 H (70-110) mg/dL 03/20/23 03/21/23 03/21/23 Range/Units 19:45 05:34 07:17 WBC (4.50-10.00) X 10*3/uL RBC (4.40-5.60) X 10*6/uL Hgb (13.0-17.0) g/dL Hct (39.6-50.0) % MCHC (32.0-37.0) g/dL RDW (11.5-14.5) % PT 13.2 H (10.0-12.5) sec INR 1.2 H (<1.2) POC Glucose (mg/dL) 165 H 164 H (70-110) mg/dL 03/21/23 Range/Units 07:17 WBC 11.31 H (4.50-10.00) X 10*3/uL RBC 3.10 L (4.40-5.60) X 10*6/uL Hgb 9.0 L (13.0-17.0) g/dL Hct 28.0 L (39.6-50.0) % MCHC (32.0-37.0) g/dL RDW 16.3 H (11.5-14.5) % PT (10.0-12.5) sec INR (<1.2) POC Glucose (mg/dL) (70-110) mg/dL Assessment and Plan (1) Left leg cellulitis Current Visit: Yes Status: Acute Code(s): L03.116 - CELLULITIS OF LEFT LOWER LIMB SNOMED Code(s): 13016122715402166 (2) UTI (urinary tract infection) Current Visit: Yes Status: Acute Code(s): N39.0 - URINARY TRACT INFECTION, S ITE NOT SPECIFIED SNOMED Code(s): 78034797 (3) Positive blood culture Current Visit: Yes Status: Acute Code(s): R78.81 - BACTEREMIA SNOMED Code(s): 805992278 (4) Leukocytosis Current Visit: Yes Status: Acute Code(s): D72.829 - ELEVATED WHITE BLOOD CELL COUNT, UNSPECIFIED SNOMED Code(s): 345179153 (5) Ulcer of left foot Current Visit: No Status: Acute Code(s): L97.529 - NON-PRESSURE CHRONIC ULCER OTH PRT LEFT FOOT W UNSP SEVERITY SNOMED Code(s): 605331567 (6) Stage II pressure ulcer of sacral region Current Visit: Yes Status: Acute Code(s): L89.152 - PRESSURE ULCER OF SACRAL REGION, STAGE 2 SNOMED Code(s): 41398020742528 Plan: 1patient presented to the hospital with elevated white count with initial concern for possible left heel ulcer and cellulitis however the patient also have a positive UA and there was concern for catheter associated UTI 2positive blood culture 2 out of 2 staph epi question of contamination, repeat blood culture has been negative, vancomycin has been discontinued 3-patient local wound care to the right posterior heel wound with the Santyl followed by moist dressing keep the area of the pressure 4-positive urine culture ESBL Klebsiella, ultrasound of the kidney bladder did not show any abscess or obstructive uropathy, patient completed 2-week course of IV antibiotic therapy 5patient has developed a stage II sacral pressure ulcer but no cellulitis recommend local care with the Mepilex keeping it dry and of the pressure same treatment to the wound on the right medial thigh area 6-slight worsening of the white count and will monitor closely Dictation was produced using [employer] dictation software. please excuse any grammatical, word or spelling errors. Time with Patient: Less than 30
[2023-03-21 11:51] LABS: Glucose,Whole Blood 149 mg/dL (70-110)
--- NOTE | 2023-03-21 12:19 | P.PN ---
Subjective Progress Note Date: 03/21/23 78-year-old male with a known history of coronary artery disease status post stent placement, atrial fibrillation on anticoagulation with Coumadin, hypertension, diabetes type 2 insulin-dependent, hyperlipidemia, COPD, gout and dementia who [facility] was sent to hospital due to worsening leukocytosis. Patient discharged from hospital recently on 02/09/2023 after treatment for left heel diabetic foot ulcer and surrounding cellulitis. Patient does have indwelling Quezada catheter. Cognitive impairment and could not provide much history. Patient's daughter is at bedside. Otherwise patient does not have any fever or chills. Denies any abdominal pain. No nausea vomiting or diarrhea. Chest x-ray showed no acute cardiopulmonary process/disease. Ankle x-ray showed 7 mm ossific density at the distal Achilles tendon on with mild thickening. Consider chronic insertional tendinopathy. Sequela of old injury to the medial malleolus. No vaughn lytic destruction identified to clearly indicate osteomyelitis. Laboratory data showed WBC 22.0 hemoglobin 13.0 and platelets 284 Sodium 136 potassium 3.9 chloride 97 bicarb is 31 BUN 60 and creatinine 1.68 and blood sugar 197. Liver enzymes are not elevated. Albumin 3.4 Urinalysis showed large leukocyte esterase nitrite positive with elevated WBCs 13 and occasional bacteria. Influenza A, B, RSV and COVID-19 PCR not detected. Recent urine cultures from 02/25/2023 showed gram-negative bacilli. 03/01/2023 Patient is lying in the bed. Awake alert and oriented x 1-2. Mentation is at baseline. Currently patient is room air. No complaints of leg pain. Patient does have indwelling Quezada catheter. Blood cultures showed gram- positive cocci and patient was started on vancomycin. Urine culture is pending. Patient has been afebrile. Wound care is following Patient remains on broad-spectrum antibiotics. ID is on board. Laboratory data showed WBC trending down to 22.0 hemoglobin 13.0 and platelets 284. Sodium 136 potassium 3.9 chloride 97 bicarb is 31 BUN 16 creatinine 1.68 and blood sugar 197. Urinalysis showed large leukocyte esterase with elevated WBC count. Patient does have chronic indwelling Quezada catheter. 03/02/2023 Patient is currently resting in the bed. Awake alert and mentation is at baseline.. Currently on room air. The patient has been afebrile. No complaints of chest pain or shortness of breath. No nausea vomiting or diarrhea noted. Patient is being continued on vancomycin due to gram-positive bacteremia. Turnout to be coagulase-negative staph. Antibiotics otherwise changed to Unasyn as per ID recommendations. Repeat urinalysis was ordered. Initial urine culture is showing gram-negative bacilli. ID is on board. 03/03/2023 Patient is mildly confused especially about time, he knows he is in hospital in [place] and he couldn't tell the name of the president He is admitted with left leg cellulitis and currently is covered with IV vancomycin and Unasyn No wound culture There was suspicion of UTI and urine culture is growing gram-negative bacilli He has positive blood culture 2 suspicious for contamination versus infection. No heart murmur is heard No evidence of bleeding. However his INR still high 4.0 today, hemoglobin went down to 11.4 down to 9.8 Going to repeat hemoglobin tonight and do anemia workup. C2 this morning and Levemir 15 units lower to 12 units 03/04/2039 Patient today is confused, mildly agitated but followed commands, looks somewhat upset and sleepy from pain medication Spell been treated for his left leg cellulitis and acute urinary tract infection Urine culture growing ESBL Klebsiella and his Unasyn was switched to meropenem based on sensitivity and continued with IV vancomycin for his left leg cellulitis Hemoglobin is stable at 10, repeat INR is pending today. Leukocytosis is improving to 16.6. His last fever 100.3 today. Blood culture shows staph epidermidis Anemia workup as ordered and is pending Discussed with staff and bedside nurse 03/05/2023 Patient still very weak and lethargic, distal also encephalopathic kind confused, he does not answer a lot of question and follow-up, only at certain times indicate in his delirium on the top of his encephalopathy. Most likely related to his sepsis from his left leg cellulitis and Urinary tract infection related to Quezada catheter. Urine culture is growing ESBL Klebsiella, and he is currently covered with IV meropenem, IV vancomycin was stopped. Patient probably will need IV antibiotics upon discharge we checked renal ultrasound today which was negative for obstructive uropathy given his significant infection Also patient INR is 3.5. Hemoglobin 8.5. 03/06/2023 Patient more confused and lethargic today, he does not answers my questions or follow commands, his mentation also reported to be worse by family doctor daughter today. His aneurysm was 3.5, repeat INR today is still pending, going to order CT of the brain to rule out hemorrhage. His been treated also with meropenem for his left leg cellulitis, with leg looks less red ,s till warm, mild swelling , no much tenderness also has been treated for UTI with Quezada catheter in place. Culture is growing ESBL Klebsiella. Also for bacteremia with possible contamination. Patient still not eaten much, glucose controlled after we lowered his Levemir 10 units. Also his hands well and therefore we going to switch his fluid #75 mL down to D5 normal saline at 50 mL/h with close monitoring Today I talked to the daughter Gabriella [phone] per her request, all her questions were answered and I discussed the case with her updating her about this problem and management plan and she verbalized understanding and acceptance 03/07/2023 Patient awake still slow to answer questions. He still looks somewhat confused and he got agitation at time at bedside and states that he has dementia more than 6 years which is slowly progressive and may be contributing to his slow recovery. He denies specific symptoms. No chest pain or dyspnea. He is afebrile and hemodynamically stable. Leukocytosis back to normal today 15.1 down to 9.8. Hemoglobin stable 9.6. INR 3.0 and patient is going to 1 mg of warfarin tonight. BNP is unremarkable. Patient remains on meropenem with the plan for outpatient IV antibiotic. His home dose of insulin 15 units lower to 10 units because patient was not eating much because of his infection and mental status. Glucose currently controlled 03/08/2023 Patient remains confused and agitated at times. It could be part of his worsening dementia as per at bedside for more than 5-6 years complicated by his infection and sepsis and metabolic encephalopathy. He is getting Seroquel and Haldol when necessary. He remains treated for UTI with ESBL Klebsiella with meropenem and lower extremity cellulitis and he is improving regarding this. Currently he is afebrile and leukocytosis back to normal at 9.9. Hemoglobin stable 8.4. INR 3.4 and 14 minutes and hold for now. His sodium come back elevated at 154 (result came back late) so started patient on D5W at 75 mm/h with close monitoring of solid 03/12/2023 Patient today was awake alert, calm but when I talked to him he agreed to answer me he told me he is in [facility], the date of the name of the president. He has inside after his illness with limitation. However his mentation almost close or back to baseline. at bedside. She agrees with his improvement. Patient is taking his oral medication. He remains on IV antibiotics and is proven Plan is to obtain PICC line tomorrow for IV antibiotics upon discharge per ID team recommendation. 03/13/2023 Patient mentation is stable, at baseline. With a bit more sleepy than usual. However easily arousable. Follow commands. No new complaints. Patient could not get the PICC line today for IV antibiotics upon discharge because of the INR jumped up 5.3 although he was receiving 1 mg of warfarin daily over the last 3 days. Vitamin K by mouth is ordered 1 however it was not given. Repeat INR back to a lower level at 3.9. No evidence of bleeding. We'll keep monitoring. Still pending PICC line placement Remains on IV InVance 03/14/2023 Patient awake and alert but staying in bed, looks lethargic. He denies specific complaint This pending PICC line placement which is on hold because of high INR 3.6 today. Going to give one-time dose of oral vitamin K 2.5 mg on hold Coumadin tonight, already discussed with staff. Patient will be discharged on IV antibiotics for his ESBL Klebsiella and left leg cellulitis which are improving. Quezada catheter in place Patient refused to take his oral medication yesterday and I talked to him and he to come Today he is still refuses his medication this morning. Also patient was not eat ing for the last 5-6 days. Patient denies specific complaints or choking. I talked to the patient and encouraged him to 8 with chest benefits explained for him and he agrees to start eating again. Patient already by psychiatrist and medications were adjusted previously. We'll ask for swallow evaluation. at bedside and perform patient declines PEG tube placement if needed. 03/15/2023 Patient is sleeping most of the day, he got Wheaton 10 mg today. Today's INR 1.3 and PICC line could be placed. He remains on Invanz for now Patient is refusing pills and diet. He took his morning pills. We will try to give him Coumadin 6 mg tonight and check INR tomorrow We encourage patient to eat he agrees but then is not really eating This could be due to a lot of narcotics and sedatives therefore we stopped Wheaton 10 mg, [place] gabapentin 200 mg 3 times a day down 200 mg 3 times a day. Also we lowered his BuSpar 50 mg down to 10 mg daily. 2: We kept the patient on Seroquel scheduled AND when necessary for possible agitation as we expected to be more agitated related to his dementia at bedside as I didn't her with the plan and she is agreeable Patient already seen by psychiatry during this admission 03/16/2023 Patient remains very lethargic, awake alert but minimal interactive, he answers questions slowly and sometimes does not answer. His refusing his medication but sometimes taken after talking to him Patient has not been starts eating despite several attempts to convince him. We stopped many of the sedative yesterday like Wheaton 10 and/or the dose of gabapentin and BuSpar but patient did not show improvement also is not taking a lot of his oral medication anyway We will do an MRI of the brain without contrast today Family has been refusing PEG tube before, PICC line in a Place which she gets antibiotic Invanz for now INR today is 1.1. He got Coumadin 1 mg last night continue with Coumadin pharmacy to dose check labs and ammonia level we'll continue monitoring 03/17/2023 Patient today was still confused her to awaken after he received Ativan yesterday. Also he was not is mildly tachypneic, ABG showing hypoxia. He was placed on oxygen treatment and BiPAP for short time. Repeat chest x-ray is ordered He remains on Invanz Patient also has PICC line, dietary consult was placed for possible TPN Also we will consult neurology service today for possible EEG and no improvement in his mentation however patient has no seizure-like activity. He received Coumadin and his INR started going up 1.2 today. After it was held for PICC line placement Family at bedside and discussed management plan with her and she is agreeable 03/18/23 Patient started waking up more today, his more, and interactive and he agrees to start eating after we lowered his BuSpar down to 10 mg and gabapentin 200 mg down 200 mg twice a day We'll try to limit use of sedatives and hepatitic Chest x-ray reviewed and looks unremarkable for acute process and breathing is improved back to baseline. No respiratory symptoms. No other new complaints Neurology input is appreciated for his altered mental status Patient has PICC line If his start eating may be considered for discharge in 24-4 hours if he keeps improving Plan discussed with the patient in details and at bedside and they're in agreement Currently On Invanz 03/19/2023:DR MARCELO ASSUMED CARE Patient seen and evaluated bedside, patient was angry and refusing medication, and daughter at bedside as well. Blood work reviewed, seen by infectious disease patient received IV antibiotics including meropenem followed by Invnarendra antibiotics discontinued. Continue with wound care will need discharge to subacute rehab 03/20/2023: Patient seen and evaluated at bedside, patient is awake and alert did take his medications, follow-up on INR levels. Antibiotic course completed sodium levels 147, started on D5, 0.45. Follow-up on basic metabolic panel 03/21/2023: Patient seen and evaluated bedside, patient is alert however remains confused,, CBC showed WBC count of 11.3, INR 1.2 basic metabolic panel pending. Hospice consulted, discussed with GENERAL: The patient is alert and oriented x 2 ill appearance, uncooperative, nasal cannula in place HEENT: Pupils are round and equally reacting to light. EOMI. CARDIOVASCULAR: S1 and S2 present. No murmurs, rubs, or gallops. PULMONARY: Chest is clear to auscultation, no wheezing , no crackles. ABDOMEN: Soft, nontender, nondistended, normoactive bowel sounds. No palpable organomegaly. MUSCULOSKELETAL: No joint swelling or deformity. EXTREMITIES:. Left lower extremity erythema improved NEUROLOGICAL: Patient is awake and oriented to person/situation, lethargic however easily arousable SKIN: Left foot bandage Objective - Vital Signs Vital signs: Vital Signs Temp 98.7 F 03/21/23 08:00 Pulse 80 03/21/23 08:00 Resp 18 03/21/23 08:00 BP 156/69 03/21/23 08:00 Pulse Ox 93 L 03/21/23 08:00 FiO2 40 03/17/23 16:11 Intake & Output 03/20/23 03/21/23 03/21/23 18:59 06:59 18:59 Output Total 200 260 Balance -200 -260 Output: Urine 200 260 Uretheral (Quezada) 260 Other: Voiding Method Indwelling Catheter Indwelling Catheter Indwelling Catheter # Voids 1 # Bowel Movements 1 1 - Labs CBC & Chem 7: 03/21/23 07:17 03/20/23 06:02 Labs: Abnormal Lab Results - Last 24 Hours (Table) 03/20/23 03/20/23 03/20/23 Range/Units 06:02 16:59 19:45 WBC (4.50-10.00) X 10*3/uL RBC 3.10 L (4.40-5.60) X 10*6/uL Hgb 8.7 L (13.0-17.0) g/dL Hct 27.9 L (39.6-50.0) % MCHC 31.2 L (32.0-37.0) g/dL RDW 16.1 H (11.5-14.5) % PT (10.0-12.5) sec INR (<1.2) POC Glucose (mg/dL) 182 H 165 H (70-110) mg/dL 03/21/23 03/21/23 03/21/23 Range/Units 05:34 07:17 07:17 WBC 11.31 H (4.50-10.00) X 10*3/uL RBC 3.10 L (4.40-5.60) X 10*6/uL Hgb 9.0 L (13.0-17.0) g/dL Hct 28.0 L (39.6-50.0) % MCHC (32.0-37.0) g/dL RDW 16.3 H (11.5-14.5) % PT 13.2 H (10.0-12.5) sec INR 1.2 H (<1.2) POC Glucose (mg/dL) 164 H (70-110) mg/dL 03/21/23 Range/Units 11:47 WBC (4.50-10.00) X 10*3/uL RBC (4.40-5.60) X 10*6/uL Hgb (13.0-17.0) g/dL Hct (39.6-50.0) % MCHC (32.0-37.0) g/dL RDW (11.5-14.5) % PT (10.0-12.5) sec INR (<1.2) POC Glucose (mg/dL) 149 H (70-110) mg/dL Assessment and Plan Assessment: Assessment and plan Acute hypoxic respiratory failure Diabetic left heel ulcer stage 3 with surrounding cellulitis . urinary tract infection. Urine culture: ESBL Klebsiella. Patient has indwelling Quezada catheter. UTI related to Quezada catheter Coagulopathy secondary to high INR RESOLVED Hypernatremia RESOLVED Anemia Paroxysmal atrial fibrillation on anticoagulation with Coumadin Acute kidney injury likely prerenal creatinine 1.68 and baseline 1.1 IMPROVED Generalized weakness and unable to ambulate without support. Hypoglycemia with uncontrolled diabetes type 2 insulin-dependent Coronary arteries with history of stent placement Hypertension Hyperlipidemia Dementia/cognitive impairment Stage II sacral decub ulcers. Plan: * Seen by neurology, continue current management, no further workup ordered, vitamin B supplementation * In regards to infection, completed Invanz appropriately treated * In regards to hyponatremia patient treated with D5.45 follow-up basic metabol ic panel ordered * In regards to malnutrition, encourage oral intake * In regards to diabetes mellitus Accu-Cheks ACHS, continue correctional insulin, continue Lantus * Labs and medication were reviewed. * Further recommendations as per clinical course of the patient * Hospice consulted * DVT prophylaxis: on Coumadin Time with Patient: Greater than 30
--- NOTE | 2023-03-21 12:51 | IR ---
EXAMINATION TYPE: IR cvc insert >=5 years Intraoperative/procedural fluoroscopic services were provid ed. CLINICAL INDICATION:Male, 78 years old with history of Abx, 0.3m/0.226DAP, 4F lt brachial 40cm PICC l ine; , [facility] Total fluoroscopy time is 0.3 min. DAP: 0.226 Gycm2 uGym2 Please see the operative/procedural note for further details.
[2023-03-21 12:52] LABS: BUN/Creat Ratio 11.86 Ratio (12.00-20.00); Blood Urea Nitrogen 8.3 mg/dL (9.0-27.0); Carbon Dioxide 23.9 mmol/L (21.6-31.8); Chloride 110 mmol/L (96-109); Glucose 177 mg/dL (70-110); Potassium 3.8 mmol/L (3.5-5.5); Sodium 146 mmol/L (135-145)
[2023-03-21 16:16] LABS: Glucose,Whole Blood 184 mg/dL (70-110)
[2023-03-21] MEDS: WARFARIN 2 MG TAB PO ONE (17:14)
[2023-03-21 20:46] LABS: Glucose,Whole Blood 164 mg/dL (70-110)
[2023-03-22 03:31] VITALS: TEMP 98
[2023-03-22 06:02] LABS: Glucose,Whole Blood 143 mg/dL (70-110)
[2023-03-22 07:48] VITALS: BP 151/74; PULSE 109; RESP 17
[2023-03-22 08:06] LABS: INR 1.7 (<1.2); Prothrombin Time 17.1 sec (10.0-12.5)
[2023-03-22 10:19] LABS: HCT 27.5 % (39.6-50.0); HGB 8.4 g/dL (13.0-17.0); MCH 26.9 pg (27.0-32.0); MCHC 30.5 g/dL (32.0-37.0); MCV 88.1 FL (80.0-97.0); Mean Platelet Volume 9.8 FL (9.5-12.2); NRBC Per 100 WBC 0 X 10*3/uL (0.00-0.01); Platelet Count 335 X 10*3/uL (140-440); RBC 3.12 X 10*6/uL (4.40-5.60); RDW 16.4 % (11.5-14.5); WBC 10.19 X 10*3/uL (4.50-10.00)
[2023-03-22 10:44] LABS: BUN/Creat Ratio 13.33 Ratio (12.00-20.00); Carbon Dioxide 29.2 mmol/L (21.6-31.8); Chloride 108 mmol/L (96-109); Glucose 130 mg/dL (70-110); Potassium 3.6 mmol/L (3.5-5.5); Sodium 146 mmol/L (135-145)
--- NOTE | 2023-03-22 11:25 | P.PN ---
Subjective Progress Note Date: 03/22/23 78-year-old male with a known history of coronary artery disease status post stent placement, atrial fibrillation on anticoagulation with Coumadin, hypertension, diabetes type 2 insulin-dependent, hyperlipidemia, COPD, gout and dementia who is currently at shelter was sent to hospital due to worsening leukocytosis. Patient discharged from hospital recently on 02/09/2023 after treatment for left heel diabetic foot ulcer and surrounding cellulitis. Patient does have indwelling Quezada catheter. Cognitive impairment and could not provide much history. Patient's daughter is at bedside. Otherwise patient does not have any fever or chills. Denies any abdominal pain. No nausea vomiting or diarrhea. Chest x-ray showed no acute cardiopulmonary process/disease. Ankle x-ray showed 7 mm ossific density at the distal Achilles tendon on with mild thickening. Consider chronic insertional tendinopathy. Sequela of old injury to the medial malleolus. No vaughn lytic destruction identified to clearly indicate osteomyelitis. Laboratory data showed WBC 22.0 hemoglobin 13.0 and platelets 284 Sodium 136 potassium 3.9 chloride 97 bicarb is 31 BUN 60 and creatinine 1.68 and blood sugar 197. Liver enzymes are not elevated. Albumin 3.4 Urinalysis showed large leukocyte esterase nitrite positive with elevated WBCs 13 and occasional bacteria. Influenza A, B, RSV and COVID-19 PCR not detected. Recent urine cultures from 02/25/2023 showed gram-negative bacilli. 03/01/2023 Patient is lying in the bed. Awake alert and oriented x 1-2. Mentation is at baseline. Currently patient is room air. No complaints of leg pain. Patient does have indwelling Quezada catheter. Blood cultures showed gram- positive cocci and patient was started on vancomycin. Urine culture is pending. Patient has been afebrile. Wound care is following Patient remains on broad-spectrum antibiotics. ID is on board. Laboratory data showed WBC trending down to 22.0 hemoglobin 13.0 and platelets 284. Sodium 136 potassium 3.9 chloride 97 bicarb is 31 BUN 16 creatinine 1.68 and blood sugar 197. Urinalysis showed large leukocyte esterase with elevated WBC count. Patient does have chronic indwelling Quezada catheter. 03/02/2023 Patient is currently resting in the bed. Awake alert and mentation is at baseline.. Currently on room air. The patient has been afebrile. No complaints of chest pain or shortness of breath. No nausea vomiting or diarrhea noted. Patient is being continued on vancomycin due to gram-positive bacteremia. Turnout to be coagulase-negative staph. Antibiotics otherwise changed to Unasyn as per ID recommendations. Repeat urinalysis was ordered. Initial urine culture is showing gram-negative bacilli. ID is on board. 03/03/2023 Patient is mildly confused especially about time, he knows he is in hospital in [place] and he couldn't tell the name of the president He is admitted with left leg cellulitis and currently is covered with IV vancomycin and Unasyn No wound culture There was suspicion of UTI and urine culture is growing gram-negative bacilli He has positive blood culture 2 suspicious for contamination versus infection. No heart murmur is heard No evidence of bleeding. However his INR still high 4.0 today, hemoglobin went down to 11.4 down to 9.8 Going to repeat hemoglobin tonight and do anemia workup. C2 this morning and Levemir 15 units lower to 12 units 03/04/2039 Patient today is confused, mildly agitated but followed commands, looks somewhat upset and sleepy from pain medication Spell been treated for his left leg cellulitis and acute urinary tract infection Urine culture growing ESBL Klebsiella and his Unasyn was switched to meropenem based on sensitivity and continued with IV vancomycin for his left leg cellulitis Hemoglobin is stable at 10, repeat INR is pending today. Leukocytosis is improving to 16.6. His last fever 100.3 today. Blood culture shows staph epidermidis Anemia workup as ordered and is pending Discussed with staff and bedside nurse 03/05/2023 Patient still very weak and lethargic, distal also encephalopathic kind confused, he does not answer a lot of question and follow-up, only at certain times indicate in his delirium on the top of his encephalopathy. Most likely related to his sepsis from his left leg cellulitis and Urinary tract infection related to Quezada catheter. Urine culture is growing ESBL Klebsiella, and he is currently covered with IV meropenem, IV vancomycin was stopped. Patient probably will need IV antibiotics upon discharge we checked renal ultrasound today which was negative for obstructive uropathy given his significant infection Also patient INR is 3.5. Hemoglobin 8.5. 03/06/2023 Patient more confused and lethargic today, he does not answers my questions or follow commands, his mentation also reported to be worse by family doctor daughter today. His aneurysm was 3.5, repeat INR today is still pending, going to order CT of the brain to rule out hemorrhage. His been treated also with meropenem for his left leg cellulitis, with leg looks less red ,s till warm, mild swelling , no much tenderness also has been treated for UTI with Quezada catheter in place. Culture is growing ESBL Klebsiella. Also for bacteremia with possible contamination. Patient still not eaten much, glucose controlled after we lowered his Levemir 10 units. Also his hands well and therefore we going to switch his fluid #75 mL down to D5 normal saline at 50 mL/h with close monitoring Today I talked to the daughter Gabriella [phone] per her request, all her questions were answered and I discussed the case with her updating her about this problem and management plan and she verbalized understanding and acceptance 03/07/2023 Patient awake still slow to answer questions. He still looks somewhat confused and he got agitation at time at bedside and states that he has dementia more than 6 years which is slowly progressive and may be contributing to his slow recovery. He denies specific symptoms. No chest pain or dyspnea. He is afebrile and hemodynamically stable. Leukocytosis back to normal today 15.1 down to 9.8. Hemoglobin stable 9.6. INR 3.0 and patient is going to 1 mg of warfarin tonight. BNP is unremarkable. Patient remains on meropenem with the plan for outpatient IV antibiotic. His home dose of insulin 15 units lower to 10 units because patient was not eating much because of his infection and mental status. Glucose currently controlled 03/08/2023 Patient remains confused and agitated at times. It could be part of his worsening dementia as per at bedside for more than 5-6 years complicated by his infection and sepsis and metabolic encephalopathy. He is getting Seroquel and Haldol when necessary. He remains treated for UTI with ESBL Klebsiella with meropenem and lower extremity cellulitis and he is improving regarding this. Currently he is afebrile and leukocytosis back to normal at 9.9. Hemoglobin stable 8.4. INR 3.4 and 14 minutes and hold for now. His sodium come back elevated at 154 (result came back late) so started patient on D5W at 75 mm/h with close monitoring of solid 03/12/2023 Patient today was awake alert, calm but when I talked to him he agreed to answer me he told me he is in [facility], the date of the name of the president. He has inside after his illness with limitation. However his mentation almost close or back to baseline. at bedside. She agrees with his improvement. Patient is taking his oral medication. He remains on IV antibiotics and is proven Plan is to obtain PICC line tomorrow for IV antibiotics upon discharge per ID team recommendation. 03/13/2023 Patient mentation is stable, at baseline. With a bit more sleepy than usual. However easily arousable. Follow commands. No new complaints. Patient could not get the PICC line today for IV antibiotics upon discharge because of the INR jumped up 5.3 although he was receiving 1 mg of warfarin daily over the last 3 days. Vitamin K by mouth is ordered 1 however it was not given. Repeat INR back to a lower level at 3.9. No evidence of bleeding. We'll keep monitoring. Still pending PICC line placement Remains on IV InVance 03/14/2023 Patient awake and alert but staying in bed, looks lethargic. He denies specific complaint This pending PICC line placement which is on hold because of high INR 3.6 today. Going to give one-time dose of oral vitamin K 2.5 mg on hold Coumadin tonight, already discussed with staff. Patient will be discharged on IV antibiotics for his ESBL Klebsiella and left leg cellulitis which are improving. Quezada catheter in place Patient refused to take his oral medication yesterday and I talked to him and he to come Today he is still refuses his medication this morning. Also patient was not eat ing for the last 5-6 days. Patient denies specific complaints or choking. I talked to the patient and encouraged him to 8 with chest benefits explained for him and he agrees to start eating again. Patient already by psychiatrist and medications were adjusted previously. We'll ask for swallow evaluation. at bedside and perform patient declines PEG tube placement if needed. 03/15/2023 Patient is sleeping most of the day, he got Stendal 10 mg today. Today's INR 1.3 and PICC line could be placed. He remains on Invanz for now Patient is refusing pills and diet. He took his morning pills. We will try to give him Coumadin 6 mg tonight and check INR tomorrow We encourage patient to eat he agrees but then is not really eating This could be due to a lot of narcotics and sedatives therefore we stopped Stendal 10 mg, [place] gabapentin 200 mg 3 times a day down 200 mg 3 times a day. Also we lowered his BuSpar 50 mg down to 10 mg daily. 2: We kept the patient on Seroquel scheduled AND when necessary for possible agitation as we expected to be more agitated related to his dementia at bedside as I didn't her with the plan and she is agreeable Patient already seen by psychiatry during this admission 03/16/2023 Patient remains very lethargic, awake alert but minimal interactive, he answers questions slowly and sometimes does not answer. His refusing his medication but sometimes taken after talking to him Patient has not been starts eating despite several attempts to convince him. We stopped many of the sedative yesterday like Stendal 10 and/or the dose of gabapentin and BuSpar but patient did not show improvement also is not taking a lot of his oral medication anyway We will do an MRI of the brain without contrast today Family has been refusing PEG tube before, PICC line in a Place which she gets antibiotic Invanz for now INR today is 1.1. He got Coumadin 1 mg last night continue with Coumadin pharmacy to dose check labs and ammonia level we'll continue monitoring 03/17/2023 Patient today was still confused her to awaken after he received Ativan yesterday. Also he was not is mildly tachypneic, ABG showing hypoxia. He was placed on oxygen treatment and BiPAP for short time. Repeat chest x-ray is ordered He remains on Invanz Patient also has PICC line, dietary consult was placed for possible TPN Also we will consult neurology service today for possible EEG and no improvement in his mentation however patient has no seizure-like activity. He received Coumadin and his INR started going up 1.2 today. After it was held for PICC line placement Family at bedside and discussed management plan with her and she is agreeable 03/18/23 Patient started waking up more today, his more, and interactive and he agrees to start eating after we lowered his BuSpar down to 10 mg and gabapentin 200 mg down 200 mg twice a day We'll try to limit use of sedatives and hepatitic Chest x-ray reviewed and looks unremarkable for acute process and breathing is improved back to baseline. No respiratory symptoms. No other new complaints Neurology input is appreciated for his altered mental status Patient has PICC line If his start eating may be considered for discharge in 24-4 hours if he keeps improving Plan discussed with the patient in details and at bedside and they're in agreement Currently On Invanz 03/19/2023:DR MARCELO ASSUMED CARE Patient seen and evaluated bedside, patient was angry and refusing medication, and daughter at bedside as well. Blood work reviewed, seen by infectious disease patient received IV antibiotics including meropenem followed by Invanz antibiotics discontinued. Continue with wound care will need discharge to subacute rehab 03/20/2023: Patient seen and evaluated at bedside, patient is awake and alert did take his medications, follow-up on INR levels. Antibiotic course completed sodium levels 147, started on D5, 0.45. Follow-up on basic metabolic panel 03/21/2023: Patient seen and evaluated bedside, patient is alert however remains confused,, CBC showed WBC count of 11.3, INR 1.2 basic metabolic panel pending. Hospice consulted, discussed with 03/22/2023: Patient seen and evaluated bedside, patient is calm, patient does not want to stay in the hospital. Hospice has been consulted patient does have progressive dementia patient is alert to person. At this time patient has minimal oral intake however patient and family did not want a feeding tube as well patient had a progressive decline and seems hospice appropriate at this point. Waiting for hospice medical facility to evaluate GENERAL: The patient is alert and oriented x 1 ill appearance, uncooperative, nasal cannula in place, impaired cognition HEENT: Pupils are round and equally reacting to light. EOMI. CARDIOVASCULAR: S1 and S2 present. No murmurs, rubs, or gallops. PULMONARY: Chest is clear to auscultation, no wheezing , no crackles. ABDOMEN: Soft, nontender, nondistended, normoactive bowel sounds. No palpable organomegaly. MUSCULOSKELETAL: No joint swelling or deformity. EXTREMITIES:. Left lower extremity erythema improved NEUROLOGICAL: Patient is alert and oriented to person, lethargic however easily arousable by impaired cognition SKIN: Left foot bandage Assessment and plan Acute hypoxic respiratory failure Diabetic left heel ulcer stage 3 with surrounding cellulitis . urinary tract infection. Urine culture: ESBL Klebsiella. Patient has indwelling Quezada catheter. UTI related to Quezada catheter Coagulopathy secondary to high INR RESOLVED Hypernatremia RESOLVED Anemia Paroxysmal atrial fibrillation on anticoagulation with Coumadin Acute kidney injury likely prerenal creatinine 1.68 and baseline 1.1 IMPROVED Generalized weakness and unable to ambulate without support. Hypoglycemia with uncontrolled diabetes type 2 insulin-dependent Coronary arteries with history of stent placement Hypertension Hyperlipidemia Dementia/cognitive impairment Stage II sacral decub ulcers. Plan: * Seen by neurology, continue current management, no further workup ordered, vitamin B supplementation started * In regards to infection, completed Invanz appropriately treated, antibiotic * In regards to hypernatremia patient treated with D5.45 follow-up basic metabolic panel shows sodium of 146 * In regards to malnutrition, encourage oral intake, minimal oral intake not a candidate for PEG tube, patient refused PEG tube * In regards to diabetes mellitus Accu-Cheks ACHS, continue correctional i nsulin, continue Lantus monitor for hypoglycemia * Labs and medication were reviewed. Further recommendations as per clinical course of the patient * Hospice consulted * DVT prophylaxis: on Coumadin due to history of A-fib Objective - Vital Signs Vital signs: Vital Signs Temp 98 F 03/22/23 07:28 Pulse 109 H 03/22/23 07:28 Resp 17 03/22/23 07:28 BP 151/74 03/22/23 07:28 Pulse Ox 98 03/22/23 07:28 FiO2 40 03/17/23 16:11 Intake & Output 03/21/23 03/22/23 03/22/23 18:59 06:59 18:59 Output Total 260 350 Balance -260 -350 Output: Urine 260 350 Uretheral (Quezada) 260 Other: Voiding Method Indwelling Catheter Indwelling Catheter Indwelling Catheter # Voids 1 # Bowel Movements 1 1 1 - Labs CBC & Chem 7: 03/22/23 07:23 03/22/23 07:23 Labs: Abnormal Lab Results - Last 24 Hours (Table) 03/21/23 03/21/23 03/21/23 Range/Units 07:17 11:47 16:14 WBC (4.50-10.00) X 10*3/uL RBC (4.40-5.60) X 10*6/uL Hgb (13.0-17.0) g/dL Hct (39.6-50.0) % MCH (27.0-32.0) pg MCHC (32.0-37.0) g/dL RDW (11.5-14.5) % PT (10.0-12.5) sec INR (<1.2) Sodium 146 H (135-145) mmol/L Chloride 110 H (96-109) mmol/L Anion Gap 12.10 H (4.00-12.00) mmol/L BUN 8.3 L (9.0-27.0) mg/dL BUN/Creatinine Ratio 11.86 L (12.00-20.00) Ratio Glucose 177 H (70-110) mg/dL POC Glucose (mg/dL) 149 H 184 H (70-110) mg/dL Calcium 8.0 L (8.7-10.3) mg/dL C-Reactive Protein (0.00-0.80) mg/dL 03/21/23 03/22/23 03/22/23 Range/Units 20:43 06:00 07:23 WBC 10.19 H (4.50-10.00) X 10*3/uL RBC 3.12 L (4.40-5.60) X 10*6/uL Hgb 8.4 L (13.0-17.0) g/dL Hct 27.5 L (39.6-50.0) % MCH 26.9 L (27.0-32.0) pg MCHC 30.5 L (32.0-37.0) g/dL RDW 16.4 H (11.5-14.5) % PT (10.0-12.5) sec INR (<1.2) Sodium (135-145) mmol/L Chloride (96-109) mmol/L Anion Gap (4.00-12.00) mmol/L BUN (9.0-27.0) mg/dL BUN/Creatinine Ratio (12.00-20.00) Ratio Glucose (70-110) mg/dL POC Glucose (mg/dL) 164 H 143 H (70-110) mg/dL Calcium (8.7-10.3) mg/dL C-Reactive Protein (0.00-0.80) mg/dL 03/22/23 03/22/23 Range/Units 07:23 07:23 WBC (4.50-10.00) X 10*3/uL RBC (4.40-5.60) X 10*6/uL Hgb (13.0-17.0) g/dL Hct (39.6-50.0) % MCH (27.0-32.0) pg MCHC (32.0-37.0) g/dL RDW (11.5-14.5) % PT 17.1 H (10.0-12.5) sec INR 1.7 H (<1.2) Sodium 146 H (135-145) mmol/L Chloride (96-109) mmol/L Anion Gap (4.00-12.00) mmol/L BUN 8.0 L (9.0-27.0) mg/dL BUN/Creatinine Ratio (12.00-20.00) Ratio Glucose 130 H (70-110) mg/dL POC Glucose (mg/dL) (70-110) mg/dL Calcium 8.0 L (8.7-10.3) mg/dL C-Reactive Protein 15.70 H (0.00-0.80) mg/dL
[2023-03-22 11:28] LABS: Glucose,Whole Blood 143 mg/dL (70-110)
--- NOTE | 2023-03-22 11:42 | P.PN ---
Subjective Progress Note Date: 03/22/23 Principal diagnosis: Reason for follow-up is left lower extremity cellulitis UTI and bacteremia Patient is a 78-year-old male with a past medical history significant for diabetes mellitus hypertension hyperlipidemia [place] patient was brought into the hospital from the local halfway concerning for elevated white count, patient did have a left hip ulceration noted to have a cellulitis to the left lower extremity also have a chronic indwelling Quezada catheter with a positive UA and blood cultures came back positive with gram-positive cocci. On today's evaluation that is 03/22/2023,the patient remains to be afebrile, patient is on 3 L nasal cannula supplemental oxygen patient remains to be sleepy and did not answer any question no vomiting diarrhea or any other changes reported by the at the bedside. Patient did have white count of 10.19 creatinine 0.6 blood culture repeat negative Objective - Vital Signs Vital signs: Vital Signs Temp 98 F 03/22/23 07:28 Pulse 109 H 03/22/23 07:28 Resp 17 03/22/23 07:28 BP 151/74 03/22/23 07:28 Pulse Ox 98 03/22/23 07:28 FiO2 40 03/17/23 16:11 Intake & Output 03/21/23 03/22/23 03/22/23 18:59 06:59 18:59 Output Total 260 350 Balance -260 -350 Output: Urine 260 350 Uretheral (Quezada) 260 Other: Voiding Method Indwelling Catheter Indwelling Catheter Indwelling Catheter # Voids 1 # Bowel Movements 1 1 1 - Exam GENERAL DESCRIPTION: An elderly male lying in bed in no distress RESPIRATORY SYSTEM: Unlabored breathing , decreased breath sounds at bases HEART: S1 S2 regular rate and rhythm , ABDOMEN: Soft , no tenderness EXTREMITIES: Right posterior heel currently dressed no drainage on the dressing Patient did have a stage II sacral/left gluteal pressure ulcer with no cellulitis, a wound to the right medial thigh with some slough tissue but no redness - Labs CBC & Chem 7: 03/22/23 07:23 03/22/23 07:23 Labs: Abnormal Lab Results - Last 24 Hours (Table) 03/21/23 03/21/23 03/21/23 Range/Units 07:17 11:47 16:14 WBC (4.50-10.00) X 10*3/uL RBC (4.40-5.60) X 10*6/uL Hgb (13.0-17.0) g/dL Hct (39.6-50.0) % MCH (27.0-32.0) pg MCHC (32.0-37.0) g/dL RDW (11.5-14.5) % PT (10.0-12.5) sec INR (<1.2) Sodium 146 H (135-145) mmol/L Chloride 110 H (96-109) mmol/L Anion Gap 12.10 H (4.00-12.00) mmol/L BUN 8.3 L (9.0-27.0) mg/dL BUN/Creatinine Ratio 11.86 L (12.00-20.00) Ratio Glucose 177 H (70-110) mg/dL POC Glucose (mg/dL) 149 H 184 H (70-110) mg/dL Calcium 8.0 L (8.7-10.3) mg/dL C-Reactive Protein (0.00-0.80) mg/dL 03/21/23 03/22/23 03/22/23 Range/Units 20:43 06:00 07:23 WBC 10.19 H (4.50-10.00) X 10*3/uL RBC 3.12 L (4.40-5.60) X 10*6/uL Hgb 8.4 L (13.0-17.0) g/dL Hct 27.5 L (39.6-50.0) % MCH 26.9 L (27.0-32.0) pg MCHC 30.5 L (32.0-37.0) g/dL RDW 16.4 H (11.5-14.5) % PT (10.0-12.5) sec INR (<1.2) Sodium (135-145) mmol/L Chloride (96-109) mmol/L Anion Gap (4.00-12.00) mmol/L BUN (9.0-27.0) mg/dL BUN/Creatinine Ratio (12.00-20.00) Ratio Glucose (70-110) mg/dL POC Glucose (mg/dL) 164 H 143 H (70-110) mg/dL Calcium (8.7-10.3) mg/dL C-Reactive Protein (0.00-0.80) mg/dL 03/22/23 03/22/23 03/22/23 Range/Units 07:23 07:23 11:24 WBC (4.50-10.00) X 10*3/uL RBC (4.40-5.60) X 10*6/uL Hgb (13.0-17.0) g/dL Hct (39.6-50.0) % MCH (27.0-32.0) pg MCHC (32.0-37.0) g/dL RDW (11.5-14.5) % PT 17.1 H (10.0-12.5) sec INR 1.7 H (<1.2) Sodium 146 H (135-145) mmol/L Chloride (96-109) mmol/L Anion Gap (4.00-12.00) mmol/L BUN 8.0 L (9.0-27.0) mg/dL BUN/Creatinine Ratio (12.00-20.00) Ratio Glucose 130 H (70-110) mg/dL POC Glucose (mg/dL) 143 H (70-110) mg/dL Calcium 8.0 L (8.7-10.3) mg/dL C-Reactive Protein 15.70 H (0.00-0.80) mg/dL Assessment and Plan (1) Left leg cellulitis Current Visit: Yes Status: Acute Code(s): L03.116 - CELLULITIS OF LEFT LOWER LIMB SNOMED Code(s): 22979667794537671 (2) UTI (urinary tract infection) Current Visit: Yes Status: Acute Code(s): N39.0 - URINARY TRACT INFECTION, SITE NOT SPECIFIED SNOMED Code(s): 06702299 (3) Positive blood culture Current Visit: Yes Status: Acute Code(s): R78.81 - BACTEREMIA SNOMED Code(s): 131500629 (4) Leukocytosis Current Visit: Yes Status: Acute Code(s): D72.829 - ELEVATED WHITE BLOOD CELL COUNT, UNSPECIFIED SNOMED Code(s): 227638076 (5) Ulcer of left foot Current Visit: No Status: Acute Code(s): L97.529 - NON-PRESSURE CHRONIC ULCER OTH PRT LEFT FOOT W UNSP SEVERITY SNOMED Code(s): 741190836 (6) Stage II pressure ulcer of sacral region Current Visit: Yes Status: Acute Code(s): L89.152 - PRESSURE ULCER OF SACRAL REGION, STAGE 2 SNOMED Code(s): 34494156676435 Plan: 1patient presented to the hospital with elevated white count with initial concern for possible left heel ulcer and cellulitis however the patient also have a positive UA and there was concern for catheter associated UTI 2positive blood culture 2 out of 2 staph epi question of contamination, repeat blood culture has been negative, vancomycin has been discontinued 3-patient local wound care to the right posterior heel wound with the Santyl followed by moist dressing keep the area of the pressure 4-positive urine culture ESBL Klebsiella, ultrasound of the kidney bladder did not show any abscess or obstructive uropathy, patient completed 2-week course of IV antibiotic therapy 5patient has developed a stage II sacral pressure ulcer but no cellulitis recommend local care with the Mepilex keeping it dry and of the pressure same treatment to the wound on the right medial thigh area 6-patient white count is trending down and will monitor closely we will hold on any empiric antibiotic at this point Dictation was produced using [employer] dictation software. please excuse any grammatical, word or spelling errors. Time with Patient: Less than 30
--- NOTE | 2023-03-22 13:41 | P.DS ---
Providers Date of admission: 02/28/23 14:54 Expected date of discharge: 03/22/23 Attending physician: Elizabeth Ventura Consults: 02/28/23 22:31 Consult Physician Routine Consulting Provider: Andie Jordan Consult Reason/Comments: Leukocytosis Do you want consulting provider notified?: Yes, Notify in am 03/10/23 15:36 Consult Physician Routine Consulting Provider: Marbin Ko Consult Reason/Comments: AMS Do you want consulting provider notified?: Yes 03/17/23 12:00 Consult Physician Routine Consulting Provider: Enrique Alejandra Consult Reason/Comments: ams Do you want consulting provider notified?: Already Contacted Primary care physician: Jose Ledesma Hospital Course: 78-year-old male with a known history of coronary artery disease status post stent placement, atrial fibrillation on anticoagulation with Coumadin, hypertension, diabetes type 2 insulin-dependent, hyperlipidemia, COPD, gout and dementia who is currently at detention was sent to hospital due to worsening leukocytosis. Patient discharged from hospital recently on 02/09/2023 after treatment for left heel diabetic foot ulcer and surrounding cellulitis. Patient does have indwelling Quezada catheter. Cognitive impairment and could not provide much history. Patient's daughter is at bedside. Otherwise patient does not have any fever or chills. Denies any abdominal pain. No nausea vomiting or diarrhea. Chest x-ray showed no acute cardiopulmonary process/disease. Ankle x-ray showed 7 mm ossific density at the distal Achilles tendon on with mild thickening. Consider chronic insertional tendinopathy. Sequela of old injury to the medial malleolus. No vaughn lytic destruction identified to clearly indicate osteomyelitis. Laboratory data showed WBC 22.0 hemoglobin 13.0 and platelets 284 Sodium 136 potassium 3.9 chloride 97 bicarb is 31 BUN 60 and creatinine 1.68 and blood sugar 197. Liver enzymes are not elevated. Albumin 3.4 Urinalysis showed large leukocyte esterase nitrite positive with elevated WBCs 13 and occasional bacteria. Influenza A, B, RSV and COVID-19 PCR not detected. Recent urine cultures from 02/25/2023 showed gram-negative bacilli. 03/01/2023 Patient is lying in the bed. Awake alert and oriented x 1-2. Mentation is at baseline. Currently patient is room air. No complaints of leg pain. Patient does have indwelling Quezada catheter. Blood cultures showed gram- positive cocci and patient was started on vancomycin. Urine culture is pending. Patient has been afebrile. Wound care is following Patient remains on broad-spectrum antibiotics. ID is on board. Laboratory data showed WBC trending down to 22.0 hemoglobin 13.0 and platelets 284. Sodium 136 potassium 3.9 chloride 97 bicarb is 31 BUN 16 creatinine 1.68 and blood sugar 197. Urinalysis showed large leukocyte esterase with elevated WBC count. Patient does have chronic indwelling Quezada catheter. 03/02/2023 Patient is currently resting in the bed. Awake alert and mentation is at baseline.. Currently on room air. The patient has been afebrile. No complaints of chest pain or shortness of breath. No nausea vomiting or diarrhea noted. Patient is being continued on vancomycin due to gram-positive bacteremia. Turnout to be coagulase-negative staph. Antibiotics otherwise changed to Unasyn as per ID recommendations. Repeat urinalysis was ordered. Initial urine culture is showing gram-negative bacilli. ID is on board. 03/03/2023 Patient is mildly confused especially about time, he knows he is in hospital in [place] and he couldn't tell the name of the president He is admitted with left leg cellulitis and currently is covered with IV vancomycin and Unasyn No wound culture There was suspicion of UTI and urine culture is growing gram-negative bacilli He has positive blood culture 2 suspicious for contamination versus infection. No heart murmur is heard No evidence of bleeding. However his INR still high 4.0 today, hemoglobin went down to 11.4 down to 9.8 Going to repeat hemoglobin tonight and do anemia workup. C2 this morning and Levemir 15 units lower to 12 units 03/04/2039 Patient today is confused, mildly agitated but followed commands, looks somewhat upset and sleepy from pain medication Spell been treated for his left leg cellulitis and acute urinary tract infection Urine culture growing ESBL Klebsiella and his Unasyn was switched to meropenem based on sensitivity and continued with IV vancomycin for his left leg cellulitis Hemoglobin is stable at 10, repeat INR is pending today. Leukocytosis is improving to 16.6. His last fever 100.3 today. Blood culture shows staph epidermidis Anemia workup as ordered and is pending Discussed with staff and bedside nurse 03/05/2023 Patient still very weak and lethargic, distal also encephalopathic kind confused, he does not answer a lot of question and follow-up, only at certain times indicate in his delirium on the top of his encephalopathy. Most likely related to his sepsis from his left leg cellulitis and Urinary tract infection related to Quezada catheter. Urine culture is growing ESBL Klebsiella, and he is currently covered with IV meropenem, IV vancomycin was stopped. Patient probably will need IV antibiotics upon discharge we checked renal ultrasound today which was negative for obstructive uropathy given his significant infection Also patient INR is 3.5. Hemoglobin 8.5. 03/06/2023 Patient more confused and lethargic today, he does not answers my questions or follow commands, his mentation also reported to be worse by family doctor daughter today. His aneurysm was 3.5, repeat INR today is still pending, going to order CT of the brain to rule out hemorrhage. His been treated also with meropenem for his left leg cellulitis, with leg looks less red ,s till warm, mild swelling , no much tenderness also has been treated for UTI with Quezada catheter in place. Culture is growing ESBL Klebsiella. Also for bacteremia with possible contamination. Patient still not eaten much, glucose controlled after we lowered his Levemir 10 units. Also his hands well and therefore we going to switch his fluid #75 mL down to D5 normal saline at 50 mL/h with close monitoring Today I talked to the daughter Gabriella [phone] per her request, all her questions were answered and I discussed the case with her updating her about this problem and management plan and she verbalized understanding and acceptance 03/07/2023 Patient awake still slow to answer questions. He still looks somewhat confused and he got agitation at time at bedside and states that he has dementia more than 6 years which is slowly progressive and may be contributing to his slow recovery. He denies specific symptoms. No chest pain or dyspnea. He is afebrile and hemodynamically stable. Leukocytosis back to normal today 15.1 down to 9.8. Hemoglobin stable 9.6. INR 3.0 and patient is going to 1 mg of warfarin tonight. BNP is unremarkable. Patient remains on meropenem with the plan for outpatient IV antibiotic. His home dose of insulin 15 units lower to 10 units because patient was not eating much because of his infection and mental status. Glucose currently controlled 03/08/2023 Patient remains confused and agitated at times. It could be part of his worsening dementia as per at bedside for more than 5-6 years complicated by his infection and sepsis and metabolic encephalopathy. He is getting Seroquel and Haldol when necessary. He remains treated for UTI with ESBL Klebsiella with meropenem and lower extremity cellulitis and he is improving regarding this. Currently he is afebrile and leukocytosis back to normal at 9.9. Hemoglobin stable 8.4. INR 3.4 and 14 minutes and hold for now. His sodium come back elevated at 154 (result came back late) so started patient on D5W at 75 mm/h with close monitoring of solid 03/12/2023 Patient today was awake alert, calm but when I talked to him he agreed to answer me he told me he is in [facility], the date of the name of the president. He has inside after his illness with limitation. However his mentation almost close or back to baseline. at bedside. She agrees with his improvement. Patient is taking his oral medication. He remains on IV antibiotics and is proven Plan is to obtain PICC line tomorrow for IV antibiotics upon discharge per ID team recommendation. 03/13/2023 Patient mentation is stable, at baseline. With a bit more sleepy than usual. However easily arousable. Follow commands. No new complaints. Patient could not get the PICC line today for IV antibiotics upon discharge because of the INR jumped up 5.3 although he was receiving 1 mg of warfarin daily over the last 3 days. Vitamin K by mouth is ordered 1 however it was not given. Repeat INR back to a lower level at 3.9. No evidence of bleeding. We'll keep monitoring. Still pending PICC line placement Remains on IV InVance 03/14/2023 Patient awake and alert but staying in bed, looks lethargic. He denies specific complaint This pending PICC line placement which is on hold because of high INR 3.6 today. Going to give one-time dose of oral vitamin K 2.5 mg on hold Coumadin tonight, already discussed with staff. Patient will be discharged on IV antibiotics for his ESBL Klebsiella and left leg cellulitis which are improving. Quezada catheter in place Patient refused to take his oral medication yesterday and I talked to him and he to come Today he is still refuses his medication this morning. Also patient was not eating for the last 5-6 days. Patient denies specific complaints or choking. I talked to the patient and encouraged him to 8 with chest benefits explained for him and he agrees to start eating again. Patient already by psychiatrist and medications were adjusted previously. We'll ask for swallow evaluation. at bedside and perform patient declines PEG tube placement if needed. 03/15/2023 Patient is sleeping most of the day, he got [place] 10 mg today. Today's INR 1.3 and PICC line could be placed. He remains on Invanz for now Patient is refusing pills and diet. He took his morning pills. We will try to give him Coumadin 6 mg tonight and check INR tomorrow We encourage patient to eat he agrees but then is not really eating This could be due to a lot of narcotics and sedatives therefore we stopped [place] 10 mg, Lefty gabapentin 200 mg 3 times a day down 200 mg 3 times a day. Also we lowered his BuSpar 50 mg down to 10 mg daily. 2: We kept the patient on Seroquel scheduled AND when necessary for possible agitation as we expected to be more agitated related to his dementia at bedside as I didn't her with the plan and she is agreeable Patient already seen by psychiatry during this admission 03/16/2023 Patient remains very lethargic, awake alert but minimal interactive, he answers questions slowly and sometimes does not answer. His refusing his medication but sometimes taken after talking to him Patient has not been starts eating despite several attempts to convince him. We stopped many of the sedative yesterday like [place] 10 and/or the dose of gabapentin and BuSpar but patient did not show improvement also is not taking a lot of his oral medication anyway We will do an MRI of the brain without contrast today Family has been refusing PEG tube before, PICC line in a Place which she gets antibiotic Invanz for now INR today is 1.1. He got Coumadin 1 mg last night continue with Coumadin pharmacy to dose check labs and ammonia level we'll continue monitoring 03/17/2023 Patient today was still confused her to awaken after he received Ativan yes terday. Also he was not is mildly tachypneic, ABG showing hypoxia. He was placed on oxygen treatment and BiPAP for short time. Repeat chest x-ray is ordered He remains on Invanz Patient also has PICC line, dietary consult was placed for possible TPN Also we will consult neurology service today for possible EEG and no improvement in his mentation however patient has no seizure-like activity. He received Coumadin and his INR started going up 1.2 today. After it was held for PICC line placement Family at bedside and discussed management plan with her and she is agreeable 03/18/23 Patient started waking up more today, his more, and interactive and he agrees to start eating after we lowered his BuSpar down to 10 mg and gabapentin 200 mg down 200 mg twice a day We'll try to limit use of sedatives and hepatitic Chest x-ray reviewed and looks unremarkable for acute process and breathing is improved back to baseline. No respiratory symptoms. No other new complaints Neurology input is appreciated for his altered mental status Patient has PICC line If his start eating may be considered for discharge in 24-4 hours if he keeps improving Plan discussed with the patient in details and at bedside and they're in agreement Currently On Invanz 03/19/2023:DR MARCELO ASSUMED CARE Patient seen and evaluated bedside, patient was angry and refusing medication, and daughter at bedside as well. Blood work reviewed, seen by infectious disease patient received IV antibiotics including meropenem followed by Shyla antibiotics discontinued. Continue with wound care will need discharge to subacute rehab 03/20/2023: Patient seen and evaluated at bedside, patient is awake and alert did take his medications, follow-up on INR levels. Antibiotic course completed sodium levels 147, started on D5, 0.45. Follow-up on basic metabolic panel 03/21/2023: Patient seen and evaluated bedside, patient is alert however remains confused,, CBC showed WBC count of 11.3, INR 1.2 basic metabolic panel pending. Hospice consulted, discussed with 03/22/2023: Patient seen and evaluated bedside, patient is calm, patient does not want to stay in the hospital. Hospice has been consulted patient does have progressive dementia patient is alert to person. At this time patient has minimal oral intake however patient and family did not want a feeding tube as well patient had a progressive decline and seems hospice appropriate at this point. Waiting for hospice medical facility to evaluate GENERAL: The patient is alert and oriented x 1 ill appearance, uncooperative, nasal cannula in place, impaired cognition HEENT: Pupils are round and equally reacting to light. EOMI. CARDIOVASCULAR: S1 and S2 present. No murmurs, rubs, or gallops. PULMONARY: Chest is clear to auscultation, no wheezing , no crackles. ABDOMEN: Soft, nontender, nondistended, normoactive bowel sounds. No palpable organomegaly. MUSCULOSKELETAL: No joint swelling or deformity. EXTREMITIES:. Left lower extremity erythema improved NEUROLOGICAL: Patient is alert and oriented to person, lethargic however easily arousable by impaired cognition SKIN: Left foot bandage Assessment and plan Acute hypoxic respiratory failure Diabetic left heel ulcer stage 3 with surrounding cellulitis . urinary tract infection. Urine culture: ESBL Klebsiella. Patient has indwelling Quezada catheter. UTI related to Quezada catheter Coagulopathy secondary to high INR RESOLVED Hypernatremia RESOLVED Anemia Paroxysmal atrial fibrillation on anticoagulation with Coumadin Acute kidney injury likely prerenal creatinine 1.68 and baseline 1.1 IMPROVED Generalized weakness and unable to ambulate without support. Hypoglycemia with uncontrolled diabetes type 2 insulin-dependent Coronary arteries with history of stent placement Hypertension Hyperlipidemia Dementia/cognitive impairment Stage II sacral decub ulcers. Plan: * Seen by neurology, continue current management, no further workup ordered, vitamin B supplementation started * In regards to infection, completed Invanz appropriately treated, antibiotic * In regards to hypernatremia patient treated with D5.45 follow-up basic metabolic panel shows sodium of 146 * In regards to malnutrition, encourage oral intake, minimal oral intake not a candidate for PEG tube, patient refused PEG tube * In regards to diabetes mellitus Accu-Cheks ACHS, continue correctional insulin, continue Lantus monitor for hypoglycemia * Labs and medication were reviewed. Further recommendations as per clinical course of the patient * Hospice consulted * DVT prophylaxis: on Coumadin due to history of A-fib * Patient discharged to hospice, medications can be weaned off while at hospice medical facility Patient Condition at Discharge: Poor Plan - Discharge Summary New Discharge Prescriptions: New Folic Acid 1 mg PO DAILY 30 Days #30 tab Nystatin 100,000 Unit/gm Powd [Mycostatin Powder] 1 applic TOPICAL BID each QUEtiapine [SEROquel] 25 mg PO HS 15 Days #15 tab Divalproex ER [Depakote ER] 250 mg PO DAILY tab Gabapentin [Neurontin] 100 mg PO TID 3 Days #9 cap Cyanocobalamin/Cobamamide [Vitamin B-12 5,000 Mcg Tab Sl] 1 tab SUBLINGUAL DAILY 30 Days #30 tab Continue Atorvastatin [Lipitor] 80 mg PO HS@2100 busPIRone HCL 15 mg PO DAILY@0900 amLODIPine BESYLATE [Norvasc] 5 mg PO BID@0900,2100 Loratadine 10 mg PO DAILY@0900 Acetaminophen Tab [Tylenol] 650 mg PO Q4H PRN PRN Reason: Fever And/ Or Pain Metoprolol Tartrate [Lopressor] 50 mg PO DAILY@0900 hydrALAZINE HCL [Apresoline] 75 mg PO DAILY@0900 Simethicone Chew [Mylicon Chew] 40 mg PO QID@09,13,17,21 Insulin Lispro See Protocol SQ ACHS Calcium Acetate [PhosLo] 667 mg PO TID@0800,1200,1700 Furosemide [Lasix] 40 mg PO DAILY@0600 Donepezil [Aricept] 10 mg PO HS@2100 Cholecalciferol (Vitamin D3) [Vitamin D3 (3000 Iu)] 75 mcg PO DAILY@0900 Triamcinolone 0.1% Cream [Kenalog 0.1% Cream] 1 applicatio TOPICAL HS Collagenase [Santyl Ointment] 1 applic TOPICAL DAILY PRN PRN Reason: LEFT HEEL WOUND Collagenase [Santyl Ointment] 1 applic TOPICAL HS Omeprazole [PriLOSEC] 20 mg PO DAILY@0600 Insulin Glargine-Yfgn [Semglee (Yfgn) Pen] 15 units SQ HS@2100 Warfarin [Coumadin] 2 mg PO DAILY@1700 Discontinued cloNIDine HCL [Catapres] 0.1 mg PO BID@0900,2100 Doxycycline Hyclate 100 mg PO BID@0900,2100 predniSONE [Deltasone] 40 mg PO DAILY@0900 HYDROcodone/APAP 10-325MG [[place] 10-325] 1 tab PO Q6HR PRN PRN Reason: Pain Gabapentin [Neurontin] 200 mg PO TID@0600,1400,2200 Discharge Medication List Atorvastatin [Lipitor] 80 mg PO HS@2100 01/14/16 [History] Loratadine 10 mg PO DAILY@0900 01/14/16 [History] amLODIPine BESYLATE [Norvasc] 5 mg PO BID@0900,2100 01/14/16 [History] busPIRone HCL 15 mg PO DAILY@0900 01/14/16 [History] Cholecalciferol (Vitamin D3) [Vitamin D3 (3000 Iu)] 75 mcg PO DAILY@0900 12/18/22 [History] Donepezil [Aricept] 10 mg PO HS@209912/18/22 [History] Acetaminophen Tab [Tylenol] 650 mg PO Q4H PRN 02/03/23 [History] Metoprolol Tartrate [Lopressor] 50 mg PO DAILY@0902/03/23 [History] hydrALAZINE HCL [Apresoline] 75 mg PO DAILY@0902/03/23 [History] Calcium Acetate [PhosLo] 667 mg PO TID@0800,1200,1700 02/28/23 [History] Collagenase [Santyl Ointment] 1 applic TOPICAL DAILY PRN 02/28/23 [History] Collagenase [Santyl Ointment] 1 applic TOPICAL HS 02/28/23 [History] Furosemide [Lasix] 40 mg PO DAILY@0602/28/23 [History] Insulin Glargine-Yfgn [Semglee (Yfgn) Pen] 15 units SQ HS@209902/28/23 [History] Insulin Lispro See Protocol SQ ACHS 02/28/23 [History] Omeprazole [PriLOSEC] 20 mg PO DAILY@0602/28/23 [History] Simethicone Chew [Mylicon Chew] 40 mg PO QID@09,13,17,21 02/28/23 [History] Triamcinolone 0.1% Cream [Kenalog 0.1% Cream] 1 applicatio TOPICAL HS 02/28/23 [History] Warfarin [Coumadin] 2 mg PO DAILY@1700 02/28/23 [History] Cyanocobalamin/Cobamamide [Vitamin B-12 5,000 Mcg Tab Sl] 1 tab SUBLINGUAL DAILY 30 Days #30 tab 03/21/23 [Rx] Divalproex ER [Depakote ER] 250 mg PO DAILY tab 03/21/23 [Rx] Folic Acid 1 mg PO DAILY 30 Days #30 tab 03/21/23 [Rx] Gabapentin [Neurontin] 100 mg PO TID 3 Days #9 cap 03/21/23 [Rx] Nystatin 100,000 Unit/gm Powd [Mycostatin Powder] 1 applic TOPICAL BID each 03/21/23 [Rx] QUEtiapine [SEROquel] 25 mg PO HS 15 Days #15 tab 03/21/23 [Rx] Patient Instructions/Handouts: Cellulitis (GEN), Leukocytosis (DC)
[2023-03-22] MEDS ORDERED: WARFARIN 1 MG TAB PO ONE (18:00)
== END 2023-03-22 15:27 | disposition hospice, inpatient (51) | DRG 698 ==
LOC: EC 12:22 → 4SSUR 14:54 → 1SOBS 03-01 16:26 → 4SSUR 03-02 19:05
PROVIDERS: ADMIT Internal Medicine; ATTEND Internal Medicine
PROC: 02HV33Z Insertion of Infusion Device into Superior Vena Cava, Percutaneous Approach (ICD-10-PCS; principal; 2023-03-15 07:30)
DX: T83.511A Infection and inflammatory reaction due to indwelling urethral catheter, initial encounter (principal); A41.9 Sepsis, unspecified organism; G92.8 Other toxic encephalopathy; J96.01 Acute respiratory failure with hypoxia; D68.9 Coagulation defect, unspecified; E46 Unspecified protein-calorie malnutrition; E87.0 Hyperosmolality and hypernatremia; G72.81 Critical illness myopathy; L03.116 Cellulitis of left lower limb; L97.829 Non-pressure chronic ulcer of other part of left lower leg with unspecified severity; N17.9 Acute kidney failure, unspecified; Z16.12 Extended spectrum beta lactamase (ESBL) resistance; N39.0 Urinary tract infection, site not specified; L89.622 Pressure ulcer of left heel, stage 2; L89.152 Pressure ulcer of sacral region, stage 2; L97.529 Non-pressure chronic ulcer of other part of left foot with unspecified severity; E11.621 Type 2 diabetes mellitus with foot ulcer; Z51.5 Encounter for palliative care; Z66 Do not resuscitate; E11.622 Type 2 diabetes mellitus with other skin ulcer; E11.628 Type 2 diabetes mellitus with other skin complications; Z68.31 Body mass index [BMI] 31.0-31.9, adult; F03.A0 Unspecified dementia, mild, without behavioral disturbance, psychotic disturbance, mood disturbance, and anxiety; I10 Essential (primary) hypertension; D64.9 Anemia, unspecified; Z11.52 Encounter for screening for COVID-19; E53.8 Deficiency of other specified B group vitamins; I25.10 Atherosclerotic heart disease of native coronary artery without angina pectoris; I25.2 Old myocardial infarction; I48.0 Paroxysmal atrial fibrillation; Y84.6 Urinary catheterization as the cause of abnormal reaction of the patient, or of later complication, without mention of misadventure at the time of the procedure; M10.9 Gout, unspecified; E78.5 Hyperlipidemia, unspecified; B96.89 Other specified bacterial agents as the cause of diseases classified elsewhere; B96.1 Klebsiella pneumoniae [K. pneumoniae] as the cause of diseases classified elsewhere; R45.1 Restlessness and agitation; Z79.01 Long term (current) use of anticoagulants; Z79.4 Long term (current) use of insulin; Z79.899 Other long term (current) drug therapy; Z95.5 Presence of coronary angioplasty implant and graft
CPT/HCPCS: 36415; 36573; 36600; 70450; 70551; 71045; 76770; 80048; 80053; 80202; 81001; 82140; 82565; 82607; 82728; 82746; 82805; 83036; 83540; 83550; 83605; 83735; 84132; 85025; 85027; 85610; 85652; 86140; 87040; 87070; 87075; 87077; 87086; 87186; 87205; 87636; 94660; 94760; 96365; 96366; 96368; 99285